=== PATIENT | male | born 1940 | race Caucasian/White ===

== ENCOUNTER 2017-04-07 10:43 | Emergency (ER) | payer MEDICARE ==
[2017-04-07 10:43] VITALS: BMI 28.0
[2017-04-07 10:55] VITALS: RESP 18
--- NOTE | 2017-04-07 11:22 | C.PDOC ---
History Of Present Illness 77M c/o painful abscess of left breast worsening over the last 2 weeks. he says his Dr [facility] this am gave him abx during rx and instructed to the go to the ED after. he denies any f/c, n/v, or systemic sx of illness. Time Seen by Provider: 04/07/17 11:22 Chief Complaint (Nursing): Abnormal Skin Integrity Past Medical History Vital Signs: Last Vital Signs Temp 97.8 F 04/07/17 12:35 Pulse 70 04/07/17 12:35 Resp 18 04/07/17 12:35 BP 110/60 04/07/17 12:35 Pulse Ox 99 04/07/17 12:35 - Medical History PMH: Arthritis, Benign Prostatic Hyperplasia, Bipolar Disorder, CAD, CHF, COPD, Diabetes, HTN, Hypercholesterolemia, Peripheral Edema (no longer), Pneumonia, End Stage Renal Disease, Chronic Kidney Disease Surgical History: CABG (Aortive valve replacement9 Tissue valve ) in 07/2013 at [facility] in [facility]) - [facility] Procedures CENTRAL VENOUS CATHETER PLACEMENT WITH GUIDANCE (12/12/13) CLOSURE SKIN & SUBCUTANEOUS NEC (01/08/14) CORONAR ARTERIOGR-2 CATH (06/19/13) DIALYSIS ARTERIOVENOSTOM (03/01/15) FLUOROSCOPY OF SUP VENA CAVA USING OT CONTRAST, GUIDANCE (05/01/15) INSERT INFUSION DEV IN R EXT JUGULAR VEIN, PERC (05/01/15) INSERTION OF INFUSION DEV INTO SUP VENA CAVA, PERC APPROACH (05/01/15) LOC EXC BONE LESION NEC (10/26/13) PERFORMANCE OF URINARY FILTRATION, MULTIPLE (05/01/15) RT & LT HEART ANGIOCARD (06/19/13) RT/LEFT HEART CARD CATH (06/19/13) ULTRASONOGRAPHY OF RIGHT JUGULAR VEINS, GUIDANCE (05/01/15) VACCINATION NEC (12/12/13) VENOUS CATHETERIZATION NEC (10/26/13) Family History: States: Other Other Family History: nc - Social History Hx Tobacco Use: Yes Hx Alcohol Use: No Hx Substance Use: No - Immunization History Hx Tetanus Toxoid Vaccination: Yes Hx Influenza Vaccination: Yes Hx Pneumococcal Vaccination: Yes Review Of Systems Constitutional: Negative for: Fever, Chills, Weakness, Malaise Cardiovascular: Negative for: Chest Pain Respiratory: Negative for: Cough, Shortness of Breath Gastrointestinal: Negative for: Nausea, Vomiting Physical Exam - Physical Exam Appears: Well, Non-toxic, No Acute Distress Skin: Warm, Dry Oral Mucosa: Moist Chest: Other (small pustule with 1cm area of fluctuance surrounding by 5cm area of erythema just lateral to the left areola.) Cardiovascular: Rhythm Regular Respiratory: No Decreased Breath Sounds, No Accessory Muscle Use Neurological/Psych: Oriented x3 ED Course And Treatment O2 Sat by Pulse Oximetry: 100 - Incision & Drainage Of Abscess Anesthesia: Lidocaine 1%, With Epi Used During Procedure: Continuous Pulse Oximetry, 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 Keep the wound clean with soap and water and change the bandage daily. Return to the ER for any worsening symptoms or for any other concerns. Prescriptions: Doxycycline Monohydrate [Mondoxyne Nl] 100 mg PO BID #20 capsule Instructions: Abscess Incision and Drainage (ED) Forms: The [employer] (Malian) Print Language: SETSWANA - Clinical Impression Clinical Impression: Abscess
[2017-04-07] MEDS ORDERED: Lidocaine 1%/Epinephrine 1:100000 30 ml vial IJ STA (11:28)
[2017-04-07] MEDS ORDERED: Lidocaine 2% w Epi 1:100,000 Inj IJ ONE (11:30)
[2017-04-07 12:36] VITALS: BP 110/60; PULSE 70; TEMP 97.8
[2017-04-12 18:24] VITALS: O2SAT 100
== END 2017-04-07 12:35 | disposition home or self-care (01) ==
LOC: C.ER 10:43
DX: N61.1 Abscess of the breast and nipple (principal)

== ENCOUNTER 2017-10-30 13:53 | Inpatient (IN) | payer MEDICARE ==
[2017-10-30 13:54] VITALS: BMI 28.0
[2017-10-30 15:31] LABS: BASO # 0.2 K/uL (0.0-0.2); BASO % 1.2 % (0.0-2.0); EOS # 0.3 K/uL (0.0-0.7); EOS % 2.6 % (0.0-4.0); HEMOGLOBIN 10.9 g/dL (12.0-18.0); LYMPH # 3.7 K/uL (1.0-4.3); LYMPH % 28.7 % (20.0-40.0); MEAN CELL VOLUME 83.9 fL (80.0-94.0); MEAN CORPUSCULAR HEMOGLOBIN 27.7 pg (27.0-31.0); MEAN PLATELET VOLUME 9.4 fL (7.2-11.7); MONO # 1.2 K/uL (0.0-0.8); NEUT # 7.6 K/uL (1.8-7.0); NEUT % 58.5 % (50.0-75.0); RBC 3.95 Mil/uL (4.40-5.90); RED CELL DISTRIBUTION WIDTH 15.5 % (11.5-14.5)
[2017-10-30 15:55] LABS: ALB/GLOB RATIO 1.1 (1.0-2.1); ALBUMIN 4.1 g/dL (3.5-5.0); ALT/SGPT 12 U/L (21-72); AST/SGOT 23 U/L (17-59); BLOOD UREA NITROGEN 36 mg/dL (9-20); CALCIUM 8.8 mg/dl (8.6-10.4); GFR AFRICAN-AMERICAN 13; GFR NON-AFRICAN AMERICAN 10
--- NOTE | 2017-10-30 17:58 | RAD ---
PROCEDURE: Right shoulder dated 10/30/2017 HISTORY: Status post fall with pain. COMPARISON: No prior study available comparison FINDINGS: BONES: Current study reveals lucency along the cortex inferior glenoid and possibly on along the posterior cortex of the proximal scapula just below the glenoid. Findings may represent an acute fracture. Follow-up of CT scan could be performed for further evaluation. JOINTS: Normal. Glenohumeral and acromioclavicular joints preserved. No osteoarthritis. SOFT TISSUES: Normal. OTHER FINDINGS: None. IMPRESSION: Possible fracture through the proximal scapula including the glenoid. . Followup CT scan recommended. Note this report was placed in PA review folder for followup
--- NOTE | 2017-10-30 19:31 | C.PDOC ---
- HPI Time Seen by Provider: 10/30/17 14:38 Chief Complaint (Nursing): Trauma Past Medical History Vital Signs: Last Vital Signs Temp 97.4 F L 10/30/17 16:35 Pulse 61 10/30/17 16:35 Resp 20 10/30/17 16:35 BP 136/63 10/30/17 16:35 Pulse Ox 97 10/30/17 16:35 - Medical History PMH: Arthritis, Benign Prostatic Hyperplasia, Bipolar Disorder, CAD, CHF, COPD, Diabetes, HTN, Hypercholesterolemia, Peripheral Edema (no longer), Pneumonia, End Stage Renal Disease, Chronic Kidney Disease Surgical History: CABG (Aortive valve replacement9 Tissue valve ) in 07/2013 at [facility] in [facility]) - [facility] Procedures CENTRAL VENOUS CATHETER PLACEMENT WITH GUIDANCE (12/12/13) CLOSURE SKIN & SUBCUTANEOUS NEC (01/08/14) CORONAR ARTERIOGR-2 CATH (06/19/13) DIALYSIS ARTERIOVENOSTOM (03/01/15) FLUOROSCOPY OF SUP VENA CAVA USING OT CONTRAST, GUIDANCE (05/01/15) INSERT INFUSION DEV IN R EXT JUGULAR VEIN, PERC (05/01/15) INSERTION OF INFUSION DEV INTO SUP VENA CAVA, PERC APPROACH (05/01/15) LOC EXC BONE LESION NEC (10/26/13) PERFORMANCE OF URINARY FILTRATION, MULTIPLE (05/01/15) RT & LT HEART ANGIOCARD (06/19/13) RT/LEFT HEART CARD CATH (06/19/13) ULTRASONOGRAPHY OF RIGHT JUGULAR VEINS, GUIDANCE (05/01/15) VACCINATION NEC (12/12/13) VENOUS CATHETERIZATION NEC (10/26/13) Family History: States: Unknown Family Hx - Social History Hx Tobacco Use: Yes Hx Alcohol Use: No Hx Substance Use: No - Immunization History Hx Tetanus Toxoid Vaccination: Yes Hx Influenza Vaccination: Yes Hx Pneumococcal Vaccination: Yes ED Course And Treatment - Laboratory Results Result Diagrams: 10/30/17 15:19 10/30/17 15:19 O2 Sat by Pulse Oximetry: 97 Disposition - Disposition
--- NOTE | 2017-10-30 20:20 | C.PDOC ---
History Of Present Illness Pt lives alone. Someone came to check on pt at 7am when the found him on the floor. Pt did no remember how he fell. The person that found him apparently checked his glucose and it was high, so they gave him his insulin. - HPI Time Seen by Provider: 10/30/17 14:38 Chief Complaint (Nursing): Trauma History Per: Patient, Family (Daughter) History/Exam Limitations: other (Dementia) Onset/Duration Of Symptoms: Unknown Location Of Injury: Right: Hip, Shoulder Severity: Moderate Associated Symptoms: LOC (unknown) Additional History Per: Prior Records - Fall Fall:Prior To Injury: Other (Unknown) Past Medical History Reviewed: Historical Data, Nursing Documentation, Vital Signs Vital Signs: Last Vital Signs Temp 98.4 F 10/30/17 19:37 Pulse 84 10/30/17 19:37 Resp 18 10/30/17 19:37 BP 164/89 H 10/30/17 19:37 Pulse Ox 98 10/30/17 19:37 - Medical History PMH: Arthritis, Benign Prostatic Hyperplasia, Bipolar Disorder, CAD, CHF, COPD, Dementia, Diabetes, HTN, Hypercholesterolemia, Peripheral Edema (no longer), Pneumonia, End Stage Renal Disease (on dialysis M/W/F.), Chronic Kidney Disease Surgical History: CABG (Aortive valve replacement9 Tissue valve ) in 07/2013 at [facility]) - [facility] Procedures CENTRAL VENOUS CATHETER PLACEMENT WITH GUIDANCE (12/12/13) CLOSURE SKIN & SUBCUTANEOUS NEC (01/08/14) CORONAR ARTERIOGR-2 CATH (06/19/13) DIALYSIS ARTERIOVENOSTOM (03/01/15) FLUOROSCOPY OF SUP VENA CAVA USING OTH CONTRAST, GUIDANCE (05/01/15) INSERT INFUSION DEV IN R EXT JUGULAR VEIN, PERC (05/01/15) INSERTION OF INFUSION DEV INTO SUP VENA CAVA, PERC APPROACH (05/01/15) LOC EXC BONE LESION NEC (10/26/13) PERFORMANCE OF URINARY FILTRATION, MULTIPLE (05/01/15) RT & LT HEART ANGIOCARD (06/19/13) RT/LEFT HEART CARD CATH (06/19/13) ULTRASONOGRAPHY OF RIGHT JUGULAR VEINS, GUIDANCE (05/01/15) VACCINATION NEC (12/12/13) VENOUS CATHETERIZATION NEC (10/26/13) Family History: States: Unknown Family Hx - Social History Hx Tobacco Use: Yes Hx Alcohol Use: No Hx Substance Use: No - Immunization History Hx Tetanus Toxoid Vaccination: Yes Hx Influenza Vaccination: Yes Hx Pneumococcal Vaccination: Yes Review Of Systems Constitutional: Negative for: Fever Cardiovascular: Negative for: Chest Pain Respiratory: Negative for: Shortness of Breath Gastrointestinal: Positive for: Diarrhea (?) Musculoskeletal: Negative for: Neck Pain, Back Pain Neurological: Negative for: Weakness, Numbness, Headache Physical Exam - Physical Exam Appears: Non-toxic, No Acute Distress, Chronically Ill Skin: Normal Color, Warm, Dry Head: Atraumatic, Normacephalic Eye(s): bilateral: PERRL, EOMI Neck: Normal ROM, No Midline Cervical Tenderness, No Step Off Deformity, Supple Chest: Symmetrical, No Deformity Cardiovascular: Rhythm Regular Respiratory: Normal Breath Sounds, No Accessory Muscle Use Gastrointestinal/Abdominal: Soft, No Tenderness Back: No Vertebral Tenderness Extremity: Normal ROM, Tenderness (mild right shoulder and right hip), No Deformity, No Swelling Neurological/Psych: Oriented x3, Normal Motor, Normal Sensation ED Course And Treatment - Laboratory Results Result Diagrams: 10/30/17 15:19 10/30/17 15:19 Lab Interpretation: Abnormal Interpretation Of Abnormal: Hypoglycemia ECG: Interpreted By Me, Viewed By Me ECG Rhythm: Sinus Rhythm, 1st Degree HB, PVC, Nonspecific Changes Rate From EC O2 Sat by Pulse Oximetry: 98 Pulse Ox Interpretation: Normal - Radiology CXR: Interpreted by Me, Viewed By Me CXR Interpretation: Yes: No Acute Disease - Other Rad Right shoulder x-rays X-Ray: Viewed By Me, Read By Radiologist Interpretation: IMPRESSION: Possible fracture through the proximal scapula including the glenoid. . Followup CT scan recommended. Right hip x-rays X-Ray: Interpreted by Me, Viewed By Me Interpretation: No acute fx or dislocation. Progress Note: Pt was given a tray to eat and his glucose improved. - Physician Consult Information Physician Contacted: Jose Luis Lawton (Renal) Outcome Of Conversation: He wants pt to be admitted under on-call physician. Medical Decision Making Medical Decision Making: Unknown if pt fell due to a syncopal episode. Disposition Discussed With : Ade Iqbal Comment: He accepted pt on his service. Doctor Will See Patient In The: Hospital Counseled Patient/Family Regarding: Studies Performed, Diagnosis - Disposition Disposition: HOSPITALIZED Disposition Time: 20:26 Condition: FAIR - Clinical Impression Clinical Impression: Right scapula fracture, Fall at home, Uncontrolled diabetes mellitus
[2017-10-30] MEDS ORDERED: (Novolog) Insulin Aspart, Recombinant 100 u/ml 10 ml vial SC PRN (22:25)
[2017-10-30] MEDS ORDERED: Morphine 4 MG/ML VIAL IVP PRN (22:45)
[2017-10-30] MEDS: (Lantus) Insulin Glargine, Recombinant SC SCH (23:06)
[2017-10-30 23:36] LABS: CK-MB 1.31 ng/mL (0.0-3.38)
--- NOTE | 2017-10-31 07:21 | CP.PCM.CON ---
History of Present Illness - History of Present Illness History of Present Illness: CONSULT DICTATED FALL /SYNCOPE CERVICAL MYEOPATHY WITH SEVERE NEUROPATHY EEG/MRI BRAIN AND CERV SPINE CONTINUE THE SAME FALL PRECAUTION PROVIDE WALKER THANKS Past Patient History - Infectious Disease Hx of Infectious Diseases: None - Past Medical History & Family History Past Medical History?: Yes - Past Social History Smoking Status: Former Smoker - CARDIAC Hx Congestive Heart Failure: Yes Hx Hypercholesterolemia: Yes Hx Hypertension: Yes Hx Peripheral Edema: Yes (no longer) - PULMONARY Hx Chronic Obstructive Pulmonary Disease (COPD): Yes Hx Pneumonia: Yes - NEUROLOGICAL Hx Dementia: Yes - HEENT Hx HEENT Problems: Yes Hx Cataracts: Yes (bilat iol) - RENAL Type of Dialysis Access: left upper arm AV shunt Date of Last Dialysis Treatment: 10/29/17 - ENDOCRINE/METABOLIC Hx Diabetes Mellitus Type 1: Yes - HEMATOLOGICAL/ONCOLOGICAL Hx Blood Disorders: No - INTEGUMENTARY Hx Dermatological Problems: Yes (ble with discoloration) - MUSCULOSKELETAL/RHEUMATOLOGICAL Hx Arthritis: Yes Hx Falls: Yes - GASTROINTESTINAL Hx Gastrointestinal Disorders: Yes Hx Gastroesophageal Reflux: Yes - GENITOURINARY/GYNECOLOGICAL Hx Genitourinary Disorders: Yes Other/Comment: BPH - PSYCHIATRIC Hx Bipolar Disorder: Yes Hx Substance Use: No - SURGICAL HISTORY Hx Coronary Artery Bypass Graft: Yes (Aortive valve replacement9 Tissue valve ) in 07/[address] [facility]) - ANESTHESIA Hx Anesthesia: Yes Hx Anesthesia Reactions: No Hx Malignant Hyperthermia: No Meds Allergies/Adverse Reactions: Allergies Allergy/AdvReac Type Severity Reaction Status Date / Time No Known Allergies Allergy Verified 10/30/17 14:11 - Medications Medications: Current Medications Acetaminophen (Tylenol 325mg Tab) 650 mg PO Q6H PRN PRN Reason: MILD PAIN Amlodipine Besylate (Norvasc) 10 mg PO DAILY [facility] Calcium Acetate (Phoslo) 1,334 mg PO ACTID [facility] Last Admin: 10/31/17 07:00 Dose: 1,334 mg Carvedilol (Coreg) 25 mg PO BID [facility] Last Admin: 10/30/17 23:05 Dose: 25 mg Clonidine HCl (Catapres) 0.1 mg PO BID [facility] Last Admin: 10/30/17 23:05 Dose: 0.1 mg Enoxaparin Sodium (Lovenox) 40 mg SC DAILY [facility] Glimepiride (Amaryl) 4 mg PO DAILY [facility] Insulin Aspart (Novolog) 0 unit SC ACHS [place] PRN Reason: Protocol Insulin Glargine (Lantus) 30 unit SC HS [facility] Last Admin: 10/30/17 23:06 Dose: 30 units Lamotrigine (Lamictal) 25 mg PO BID [facility] Last Admin: 10/30/17 23:13 Dose: 25 mg Losartan Potassium (Cozaar) 100 mg PO DAILY [facility] Morphine Sulfate (Morphine) 2 mg IVP Q6 PRN PRN Reason: Pain, severe (8-10) Pantoprazole Sodium (Protonix Ec Tab) 40 mg PO DAILY [facility] Rosuvastatin Calcium (Crestor) 10 mg PO HS [facility] Last Admin: 10/30/17 23:05 Dose: 10 mg Tamsulosin HCl (Flomax) 0.4 mg PO DAILY [facility] Results - Vital Signs Recent Vital Signs: Last Vital Signs Temp 98 F 10/31/17 04:15 Pulse 62 10/31/17 04:15 Resp 20 10/31/17 04:15 BP 129/59 L 10/31/17 04:15 Pulse Ox 96 10/31/17 04:15 - Labs Result Diagrams: 10/30/17 15:19 10/30/17 15:19 Labs: Laboratory Results - last 24 hr 10/30/17 10/30/17 10/30/17 15:19 15:19 17:07 WBC 13.0 H D RBC 3.95 L Hgb 10.9 L Hct 33.1 L MCV 83.9 MCH 27.7 MCHC 33.0 RDW 15.5 H Plt Count 183 MPV 9.4 Neut % (Auto) 58.5 Lymph % (Auto) 28.7 [place] % (Auto) 9.0 Eos % (Auto) 2.6 Baso % (Auto) 1.2 Neut # (Auto) 7.6 H Lymph # (Auto) 3.7 [place] # (Auto) 1.2 H Eos # (Auto) 0.3 Baso # (Auto) 0.2 Sodium 141 Potassium 4.0 Chloride 97 L Carbon Dioxide 28 Anion Gap 20 BUN 36 H Creatinine 5.4 H Est GFR ( Amer) 13 Est GFR (Non-Af Amer) 10 POC Glucose (mg/dL) 81 Random Glucose 42 L Calcium 8.8 Total Bilirubin 0.5 AST 23 ALT 12 L D Alkaline Phosphatase 109 Total Creatine Kinase CK-MB (Mass) Troponin I < 0.0120 Total Protein 7.8 Albumin 4.1 Globulin 3.7 Albumin/Globulin Ratio 1.1 10/30/17 10/30/17 10/30/17 19:28 21:39 23:09 WBC RBC Hgb Hct MCV MCH MCHC RDW Plt Count MPV Neut % (Auto) Lymph % (Auto) [place] % (Auto) Eos % (Auto) Baso % (Auto) Neut # (Auto) Lymph # (Auto) [place] # (Auto) Eos # (Auto) Baso # (Auto) Sodium Potassium Chloride Carbon Dioxide Anion Gap BUN Creatinine Est GFR ( Amer) Est GFR (Non-Af Amer) POC Glucose (mg/dL) 113 H 284 H Random Glucose Calcium Total Bilirubin AST ALT Alkaline Phosphatase Total Creatine Kinase 74 CK-MB (Mass) 1.31 Troponin I < 0.0120 Total Protein Albumin Globulin Albumin/Globulin Ratio 10/31/17 06:14 WBC RBC Hgb Hct MCV MCH MCHC RDW Plt Count MPV Neut % (Auto) Lymph % (Auto) [place] % (Auto) Eos % (Auto) Baso % (Auto) Neut # (Auto) Lymph # (Auto) [place] # (Auto) Eos # (Auto) Baso # (Auto) Sodium Potassium Chloride Carbon Dioxide Anion Gap BUN Creatinine Est GFR ( Amer) Est GFR (Non-Af Amer) POC Glucose (mg/dL) 189 H Random Glucose Calcium Total Bilirubin AST ALT Alkaline Phosphatase Total Creatine Kinase CK-MB (Mass) Troponin I Total Protein Albumin Globulin Albumin/Globulin Ratio
[2017-10-31 07:43] LABS: HDL CHOLESTEROL 20 mg/dL (30-70)
[2017-10-31 07:56] LABS: LDL CHOLESTEROL 40 mg/dL (0-129)
[2017-10-31 07:57] LABS: CK-MB 1.01 ng/mL (0.0-3.38)
[2017-10-31 08:00] LABS: FREE T4 1.1 ng/dL (0.78-2.19)
[2017-10-31] MEDS: (Novolog) Insulin Aspart, Recombinant 100 u/ml 10 ml vial SC SCH ×5 (08:00→21:51)
--- NOTE | 2017-10-31 08:01 | RAD ---
Chest x-ray single frontal view History: Fall. Comparison: None available. Findings: No focal infiltrate or effusion. Mild venous congestion. Mild patchy increased markings at the left lung base. Status post median sternotomy. Calcification the aortic knob. Degenerative changes in the spine and shoulders. Productive change at the left inferior bony glenoid. Impression: No focal infiltrate or effusion. Mild venous congestion. Mild patchy increased markings at the left lung base. Status post median sternotomy. Calcification the aortic knob.
--- NOTE | 2017-10-31 08:23 | RAD ---
PROCEDURE: Right Hip Radiographs. HISTORY: Pain s/p fall COMPARISON: None. FINDINGS: BONES: The pelvic ring is intact. There is no acute displaced fracture or bone destruction. JOINTS: Normal. SOFT TISSUES: Normal. OTHER FINDINGS: None. IMPRESSION: No acute displaced fracture or dislocation. Please note occult fractures cannot be excluded on plain radiographs. If there is a persistent clinical concern, an MRI of the hip may be performed for further evaluation.
[2017-10-31] MEDS: Enoxaparin 40 mg Syringe SC SCH (10:00)
--- NOTE | 2017-10-31 10:55 | MRI ---
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 COMPARISON: Comparison made with prior scan brain dated 06/24/2016. TECHNIQUE: Multiplanar, multisequence MR images of the brain were obtained without intravenous contrast enhancement. FINDINGS: HEMORRHAGE: No acute parenchymal, subarachnoid or extra-axial hemorrhage. No evidence of hemosiderin deposition identified on gradient echo weighted sequence. DWI: No evidence of an acute or early subacute infarction seen on diffusion imaging. . BRAIN PARENCHYMA: Mild chronic periventricular white matter ischemic changes seen extending peripherally into the deep and subcortical white matter both cerebral hemispheres. Multiple more discrete chronic appearing lacunar type infarcts also seen scattered about deep and subcortical white matter as well as to a lesser degree both basal nuclei and both cerebellar hemispheres including the changes in middle cerebellar peduncles. . Significant volume loss. . VENTRICLES: No obstructive hydrocephalus. CRANIUM: Calvarium appears grossly unremarkable. ORBITS: Changes of bilateral cataract surgery again noted. PARANASAL SINUSES/MASTOIDS: Apparent complete opacification right chamber sphenoid sinus. VASCULAR SYSTEM: Visualized major vascular flow voids at skull base are patent. OTHER FINDINGS: None. IMPRESSION: No evidence of acute intracranial hemorrhage or infarct. Chronic white matter, basal nuclei and cerebellar ischemic changes as described. Significant volume loss. Apparent complete opacification right chamber sphenoid sinus. Changes of bilateral cataract surgery
--- NOTE | 2017-10-31 11:00 | CON ---
DATE: ATTENDING PHYSICIAN: Radha Iqbal MD LOCATION: The patient's room number 659, bed 1. REASON FOR CONSULTATION: Syncopal attack. CHIEF COMPLAINT: The patient was brought into [facility] after he was found on the floor by his friend at home. The patient was found to have sugar was high, and he was brought into [facility] for further management. HISTORY OF PRESENT ILLNESS: Mr. Mekhi Sutton is 77-year-old right-handed moderately built male who lives alone, brought into [facility] with a history of witnessed, being found on the floor. No evidence of bowel or bladder incontinence. No evidence of bleeding at the scene. The patient admitted frequent fall at home and outside due to his losing balance. He has been using the cane for more than 3 years. He admits he is using the cane because of his losing his balance. Denies neck pain. He claims that he has lower back pain on and off. No radicular in nature. No headache, no visual or bulbar dysfunction. No other weakness as per the patient. No history of bowel or bladder incontinence. No history of involuntary movements. PAST MEDICAL HISTORY: Benign prostatic hypertrophy, bipolar disorder, coronary artery disease, CHF, COPD, dementia, diabetes, hypertension, dyslipidemia, peripheral edema, pneumonia, end-stage renal disease, getting dialysis Friday, Friday, and Friday. PAST SURGICAL HISTORY: Aortic valve replacement in 2012. REVIEW OF SYSTEMS: Twelve-point system had been reviewed. From neuro, recurrent fall and loss of consciousness. MEDICATIONS: Glimepiride, Catapres, Coreg, Cozaar, Crestor, Flomax, Lamictal, insulin, Lovenox, morphine, NovoLog, phosphorus supplements, pantoprazole. PHYSICAL EXAMINATION: NECK: Supple. No carotid bruits. HEART: Sounds regular. CHEST: Fair air entry. EXTREMITIES: No edema in legs. NEUROLOGIC: MENTAL STATUS EXAMINATION: He is awake, alert, and oriented to person and place. He knows the year. He knows the president. He moves all 4 extremities against the gravity. No right and left confusion. Cranial nerve examination: Right palpebral fissure is smaller compared with his left side. Extraocular movement intact. Pupils reactive to light. No facial sensory deficit. No facial asymmetry. Hearing is normal. Tongue is midline. Good gag. Motor examination: On outstretched hand with eyes closed, mild tremor noted on outstretched hand with eyes closed. Significant intrinsic muscle groups atrophy, more pronounced at first dorsal interossei on both sides. No fasciculation noted at rest. He could lift both upper extremities against the gravity. Significant weakness of left extensor hallucis longus and he worsens. Right leg has also weakness noted over dorsiflexion. Deep tendon reflexes: Trace in the upper extremities, absent in lower extremities. Plantars are mute. Sensory examination: Significant sensory dysfunction manifesting with inability to fill his lower extremity movement, particularly the ankle as well as the foot joints. Significant decreased pinprick and temperature in both lower extremities. Coordination: [id number] test is intact. Gait: Deferred at this time. LABORATORY DATA: Workup, EKG bundle-branch block with PVCs. WBC 13.0, hemoglobin 10.9, hematocrit 33.1, platelets 183. Sodium 141, potassium 4.0, chloride 97, bicarbonate 28, BUN 36, creatinine 5.7, GFR 10, glucose 189, calcium 8.8, alkaline phosphatase 109, ALT 12. CONCLUSION: Mr. Mekhi Sutton, as per neurological examination, presenting with possible syncopal attack versus fall from his balance. The examination shows possible cervical myelopathy which may be superimposed with bilateral distal symmetric sensory motor neuropathy, which probably is due to his diabetes as well as end-stage renal disease. The syncopal attack could be from cardiac versus neuro. From neuro, he may need further workup to rule out or ruled in, central nervous system dysfunction. RECOMMENDATIONS: 1. MRI of the brain evident to rule out any structural cause. 2. MRI of the cervical spine to rule out either intrinsic an extrinsic lesion for his myelopathy. 3. Carotid Doppler cardiogram and EEG to be done for his medical issues and neurological problem. 3. Continue the present management. 4. Out of bed, physical therapy. The patient can be benefited of using a walker than a cane, provided AFO should be given by the physical therapist to improve his gait and performance of his ambulation. Nathanael Barraza MD
--- NOTE | 2017-10-31 11:41 | MRI ---
PROCEDURE: MR CERVICAL SPINE WITHOUT CONTRAST HISTORY: Myelopathy COMPARISON: None available. TECHNIQUE: Multiecho multiplanar sequences were performed through the cervical spine without the use of intravenous contrast. FINDINGS: There is degenerative 4 mm retrolisthesis of C4 on C5. There is straightening of the cervical spine with loss of normal cervical lordosis. There are advanced degenerative endplate marrow changes at C4-5, C5-6 and C6-7. Otherwise, bone marrow signal is within normal limits. There is no acute fracture or spondylolisthesis. The craniocervical junction is normal. There is mild degenerative osteoarthrosis at the atlantoaxial joint. C2-C3: No disc herniation, spinal canal stenosis or neural foraminal narrowing. C3-C4: Broad-based disc osteophyte complex indents the ventral thecal sac with mild central spinal canal stenosis. Mild uncovertebral joint hypertrophy, asymmetric on the right in conjunction with mild facet arthropathy result in severe right and [id number] left neural foraminal narrowing. C4-C5: Broad-based central disc protrusion indents the ventral thecal sac with resultant moderate spinal canal stenosis. Moderate right and mild left facet arthropathy contribute to severe right and moderate left neural foraminal narrowing. C5-C6: Broad-based disc osteophyte complex in conjunction with mild ligamentum flavum infolding result in mild spinal canal stenosis. Moderate bilateral facet arthropathy contribute to severe neural foraminal narrowing. C6-C7: Broad-based disc osteophyte complex and mild central spinal canal stenosis. Severe bilateral facet arthropathy contribute to moderate neural foraminal narrowing. C7-T1: No disc herniation, spinal canal stenosis or neural foraminal narrowing. OTHER FINDINGS: None. IMPRESSION: Multilevel degenerative disc disease, worse at C4 -5 with a broad-based central disc protrusion and moderate spinal canal stenosis without evidence for cord compression. Also noted is severe right and moderate left neural foraminal narrowing. Additional comments as described above.
[2017-10-31] MEDS: Pantoprazole 40 mg EC Tab PO SCH (12:42)
--- NOTE | 2017-10-31 13:32 | CARD ---
APPROVED REPORT EKG Measurement Heart [id number] CT 220P49 [id number] <Conclusion> Sinus rhythm with 1st degree AV block with frequent premature ventricular complexes Cannot rule out Anterior infarct, age undetermined Abnormal ECG
--- NOTE | 2017-10-31 14:12 | VASCLAB ---
PROCEDURE: HISTORY: assess stenosis COMPARISON: None available. TECHNIQUE: Grayscale and duplex Doppler evaluation of the cervical carotid and vertebral arteries were performed. The common carotid, carotid bifurcations and cervical Internal Carotid Artery (ICA) and proximal External Carotid Artery (ECA) were evaluated. The vertebral arteries were evaluated for gross patency and flow direction. Report prepared by Ramu Mahajan, BS, RVT FINDINGS: RIGHT CAROTID ARTERIES: 1. Common Carotid Artery: No significant focal plaque formation of the right common carotid artery. Maximum Peak Systolic velocity: 81 cm/sec: End-diastolic velocity 0 cm/sec. 2. Carotid Bifurcation: plaque formation. Maximum Peak Systolic velocity: 62 cm/sec: End-diastolic velocity 0 cm/sec. 3. Internal Carotid Artery: Plaque description: 3.1. Proximal Segment: Peak systolic velocity 57 cm/sec: End-diastolic velocity 9 cm/sec - % stenosis 0-15% 3.2. Middle Segment: Peak systolic velocity 75 cm/sec: End-diastolic velocity 13 cm/sec - % stenosis 0-15% 3.3. Distal Segment: Peak systolic velocity 93 cm/sec: End-diastolic velocity 18 cm/sec - % stenosis 0-15% 4. External Carotid Artery: No significant focal plaque formation. Peak systolic velocity 122 cm/sec 5. ICA/CCA Ratio: 1.2 LEFT CAROTID ARTERIES: 1. Common Carotid Artery: No significant focal plaque formation of the left common carotid artery. Maximum Peak Systolic velocity: 91 cm/sec: End-diastolic velocity 0 cm/sec. 2. Carotid Bifurcation: plaque formation. Maximum Peak Systolic velocity: 70 cm/sec: End-diastolic velocity 0 cm/sec. 3. Internal Carotid Artery: Plaque description: 3.1. Proximal Segment: Peak systolic velocity 93 cm/sec: End-diastolic velocity 0 cm/sec - % stenosis 0-15% 3.2. Middle Segment: Peak systolic velocity 119 cm/sec: End-diastolic velocity 12 cm/sec - % stenosis 0-15% 3.3. Distal Segment: Peak systolic velocity 117 cm/sec: End-diastolic velocity 19 cm/sec - % stenosis 0-15% 4. External Carotid Artery: No significant focal plaque formation. Peak systolic velocity 147 cm/sec 5. ICA/CCA Ratio: 1.3 VERTEBRAL ARTERIES: 1. Right Vertebral Artery: The right vertebral artery flow direction is antegrade. 2. Left Vertebral Artery: The left vertebral artery flow direction is antegrade. OTHER FINDINGS: 1. Right Brachial Blood pressure: 152 mmHg. 2. Left Brachial Blood pressure: mmHg. IMPRESSION: RIGHT: Duplex scan does not suggest hemodynamically significant stenosis of the right extracranial carotid arteries. LEFT: Duplex scan does not suggest hemodynamically significant stenosis of the left extracranial carotid arteries.
--- NOTE | 2017-10-31 16:18 | CARD ---
APPROVED REPORT EXAM: Two-dimensional and M-mode echocardiogram with Doppler and color Doppler. Other Information Quality : Technically LimitedRhythm : INDICATION Congestive Heart Failure RISK FACTORS Hypertension Hyperlipidemia Diabetes M-Mode DIMENSIONS Left Atrium (MM)3.67 (2.5-4.0cm)IVSd1.32 (0.7-1.1cm) Aortic Root3.53 (2.2-3.7cm)LVDd5.98 (4.0-5.6cm) Aortic Cusp Exc.1.34 (1.5-2.0cm)PWd1.24 (0.7-1.1cm) FS (%) 35 %LVDs3.87 (2.0-3.8cm) LVEF (%)64 (>50%) Mitral Valve MV E Gvalephv948.3cm/sMV A Ucdwngnt843.1cm/sMV SLN85ir E/A ratio1.0MVA (PHT)2.31cm2 TDI E/Lateral E'0.0E/Medial E'0.0 Tricuspid Valve TR Peak Awiuyryf807dp/sTR Peak Gr.18rhFpEWRU40lnAt LEFT VENTRICLE The left ventricle is normal size. There is normal left ventricular wall thickness. The left ventricular function is normal. The left ventricular ejection fraction is within the normal range. No regional wall motion abnormalities noted. The left ventricular diastolic function is normal. No left ventricle thrombus noted on this study. There is no ventricular septal defect visualized. There is no left ventricular aneurysm. There is no mass noted in the left ventricle. RIGHT VENTRICLE The right ventricle is normal size. There is normal right ventricular wall thickness. The right ventricular systolic function is normal. ATRIA The left atrium size is normal. The right atrium size is normal. The interatrial septum is intact with no evidence for an atrial septal defect. AORTIC VALVE The aortic valve is normal in structure and function. No aortic regurgitation is present. There is no aortic valvular stenosis. There is no aortic valvular vegetation. MITRAL VALVE The mitral valve is normal in structure and function. There is no evidence of mitral valve prolapse. There is no mitral valve stenosis. There is no mitral valve regurgitation noted. TRICUSPID VALVE The tricuspid valve is normal in structure and function. There is no tricuspid valve regurgitation noted. There is no tricuspid valve prolapse or vegetation. There is no tricuspid valve stenosis. PULMONIC VALVE The pulmonary valve is normal in structure and function. There is no pulmonic valvular regurgitation. There is no pulmonic valvular stenosis. GREAT VESSELS The aortic root is normal in size. The ascending aorta is normal in size. The pulmonary artery is normal. The IVC is normal in size and collapses >50% with inspiration. PERICARDIAL EFFUSION The pericardium appears normal. There is no pleural effusion. <Conclusion> The left ventricular function is normal. The left ventricular ejection fraction is within the normal range. No regional wall motion abnormalities noted.
[2017-10-31 16:45] LABS: PROTHROMBIN TIME 11.6 SECONDS (9.7-12.2)
[2017-10-31 17:01] LABS: CK-MB 0.97 ng/mL (0.0-3.38)
--- NOTE | 2017-10-31 17:16 | CP.PCM.CON ---
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 Continue with Nephrovite 1 tab/day. PRBC as needed for anemia. Not on LESLI with HD as last Hb 10.9 Continue with phos binders home dose, check phos level BP control with meds as ordered. Patient on RAAS ish as losartan Glycemic control, Dialysis consistent diet Further work up/management as per primary team Dose meds/antibiotics (if needed) for ESRD status. Avoid fleets enema/magnesium based laxatives. appreciate neuro input Thanks for allowing me to participate in care of your patient. Will follow patient with you. Please call if any Qs. d/w team Dr Edwardo Valenzuela Office: [phone] Chief Complaint;Fall at home HPI: Pt is a 77 m with hx of ESRD on hemodialysis (MWF) via avf , last dialysis Friday, chronic anemia, hyperphosphatemia, secondary hyperparathyroidism, Diabetes Mellitus, hypertension presented with complaints of Fall at home. Renal consult requested for ESRD management. ROS: Cardiovascular: No chest pain. Pulmonary: No shortness of breath Gastrointestinal: denies abdominal pain No nausea. No vomiting. Genitourinary: No pain while urinating. Denies blood in urine. All other negative except as mentioned in HPI Physical Examination: General Appearance: Comfortable, in no acute respiratory distress, co-operative . Vitals reviewed and noted as below Head; Atraumatic, normocephalic ENT: no ulcers no thrush. Tongue is midline. Oropharynx: no rash or ulcers. EYES: Pupils are equal, round and reactive to light accommodation. Eye muscles and extraocular movement intact. Sclera is anicteric. Neck; supple no lymphadenopathy, no thyromegaly or bruit Lungs: Normal respiratory rate/effort. Breath sounds bilateral equal and clear Heart: Normal rate. s1s2 normal. No rub or gallop. Extremities: no edema. No varicose veins Neurological: Patient is alert, awake and oriented to person, place and time. No focal deficit. Strength bilateral appropriate and equal Skin: Warm and dry. Normal turgor. No rash. Palpitation: Normal elasticity for age Abdomen: Abdomen is soft. Bowel sounds +. There is no abdominal tenderness, no guarding/rigidity or organomegaly Psych: normal insight and normal affect/mood MSK: no joint tenderness or swelling. Digits and nails normal, no deformity : kidney or bladder not palpable Access: AVF Labs/imaging reviewed. Past medical history, past surgical history, family history, social history, allergy reviewed and noted as below Family Hx: no hx of CKD. Non contributory Past Patient History - Infectious Disease Hx of Infectious Diseases: None - Past Medical History & Family History Past Medical History?: Yes - Past Social History Smoking Status: Former Smoker - CARDIAC Hx Congestive Heart Failure: Yes Hx Hypercholesterolemia: Yes Hx Hypertension: Yes Hx Peripheral Edema: Yes (no longer) - PULMONARY Hx Chronic Obstructive Pulmonary Disease (COPD): Yes Hx Pneumonia: Yes - NEUROLOGICAL Hx Dementia: Yes - HEENT Hx HEENT Problems: Yes Hx Cataracts: Yes (bilat iol) - RENAL Type of Dialysis Access: left upper arm AV shunt Date of Last Dialysis Treatment: 10/29/17 - ENDOCRINE/METABOLIC Hx Diabetes Mellitus Type 1: Yes - HEMATOLOGICAL/ONCOLOGICAL Hx Blood Disorders: No - INTEGUMENTARY Hx Dermatological Problems: Yes (ble with discoloration) - MUSCULOSKELETAL/RHEUMATOLOGICAL Hx Arthritis: Yes Hx Falls: Yes - GASTROINTESTINAL Hx Gastrointestinal Disorders: Yes Hx Gastroesophageal Reflux: Yes - GENITOURINARY/GYNECOLOGICAL Hx Genitourinary Disorders: Yes Other/Comment: BPH - PSYCHIATRIC Hx Bipolar Disorder: Yes Hx Substance Use: No - SURGICAL HISTORY Hx Coronary Artery Bypass Graft: Yes (Aortive valve replacement9 Tissue valve ) in 07/2013 at [facility]) - ANESTHESIA Hx Anesthesia: Yes Hx Anesthesia Reactions: No Hx Malignant Hyperthermia: No Meds Allergies/Adverse Reactions: Allergies Allergy/AdvReac Type Severity Reaction Status Date / Time No Known Allergies Allergy Verified 10/30/17 14:11 - Medications Medications: Current Medications Acetaminophen (Tylenol 325mg Tab) 650 mg PO Q6H PRN PRN Reason: MILD PAIN Amlodipine Besylate (Norvasc) 10 mg PO DAILY [facility] Last Admin: 10/31/17 12:42 Dose: Not Given Calcium Acetate (Phoslo) 1,334 mg PO ACTID [facility] Last Admin: 10/31/17 12:42 Dose: Not Given Carvedilol (Coreg) 25 mg PO BID [facility] Last Admin: 10/31/17 12:39 Dose: Not Given Clonidine HCl (Catapres) 0.1 mg PO BID [facility] Last Admin: 10/31/17 12:39 Dose: Not Given Enoxaparin Sodium (Lovenox) 40 mg SC DAILY [facility] Last Admin: 10/31/17 10:00 Dose: Not Given Glimepiride (Amaryl) 4 mg PO DAILY [facility] Last Admin: 10/31/17 12:39 Dose: Not Given Insulin Aspart (Novolog) 0 unit SC [facility] PRN Reason: Protocol Last Admin: 10/31/17 12:30 Dose: 2 unit Insulin Glargine (Lantus) 30 unit SC [facility] Last Admin: 10/30/17 23:06 Dose: 30 units Lamotrigine (Lamictal) 25 mg PO BID [facility] Last Admin: 10/31/17 12:40 Dose: Not Given Losartan Potassium (Cozaar) 100 mg PO DAILY [facility] Last Admin: 10/31/17 12:39 Dose: Not Given Morphine Sulfate (Morphine) 2 mg IVP Q6 PRN PRN Reason: Pain, severe (8-10) Pantoprazole Sodium (Protonix Ec Tab) 40 mg PO DAILY [facility] Last Admin: 10/31/17 12:42 Dose: Not Given Rosuvastatin Calcium (Crestor) 10 mg PO [facility] Last Admin: 10/30/17 23:05 Dose: 10 mg Tamsulosin HCl (Flomax) 0.4 mg PO DAILY [facility] Last Admin: 10/31/17 12:40 Dose: Not Given Vitamin B Complex/Vit C/Folic Acid (Nephro-Poly) 1 tab PO 0800 [facility] Results - Vital Signs Recent Vital Signs: Last Vital Signs Temp 97.8 F 10/31/17 15:05 Pulse 64 10/31/17 15:41 Resp 18 10/31/17 15:41 BP 137/57 L 10/31/17 16:35 Pulse Ox 96 10/31/17 15:05 - Labs Result Diagrams: 10/30/17 15:19 10/30/17 15:19 Labs: Laboratory Results - last 24 hr 10/30/17 10/30/17 10/30/17 19:28 21:39 23:09 ESR PT INR APTT D-Dimer, Quantitative POC Glucose (mg/dL) 113 H 284 H Hemoglobin A1c Ammonia Total Creatine Kinase 74 CK-MB (Mass) 1.31 Troponin I < 0.0120 C-React Prot High Sens Triglycerides Cholesterol LDL Cholesterol Direct HDL Cholesterol Vitamin B12 Free T4 TSH 3rd Generation Prolactin RPR 10/31/17 10/31/17 10/31/17 06:14 07:15 07:15 ESR 64 H PT INR APTT D-Dimer, Quantitative POC Glucose (mg/dL) 189 H Hemoglobin A1c Ammonia Total Creatine Kinase 56 CK-MB (Mass) 1.01 Troponin I < 0.0120 C-React Prot High Sens Triglycerides 183 H D Cholesterol 100 LDL Cholesterol Direct 40 HDL Cholesterol 20 L Vitamin B12 586 Free T4 TSH 3rd Generation Prolactin 14.0 RPR 10/31/17 10/31/17 10/31/17 07:15 07:15 07:15 ESR PT INR APTT D-Dimer, Quantitative POC Glucose (mg/dL) Hemoglobin A1c Ammonia < 9 L Total Creatine Kinase CK-MB (Mass) Troponin I C-React Prot High Sens 9.27 H Triglycerides Cholesterol LDL Cholesterol Direct HDL Cholesterol Vitamin B12 Free T4 1.10 TSH 3rd Generation 1.35 Prolactin RPR Nonreactive 10/31/17 10/31/17 10/31/17 07:15 11:28 16:07 ESR PT INR APTT D-Dimer, Quantitative POC Glucose (mg/dL) 220 H 261 H Hemoglobin A1c 8.0 H Ammonia Total Creatine Kinase CK-MB (Mass) Troponin I C-React Prot High Sens Triglycerides Cholesterol LDL Cholesterol Direct HDL Cholesterol Vitamin B12 Free T4 TSH 3rd Generation Prolactin RPR 10/31/17 10/31/17 16:29 16:29 ESR PT 11.6 INR 1.0 APTT 27 D-Dimer, Quantitative 336 H POC Glucose (mg/dL) Hemoglobin A1c Ammonia Total Creatine Kinase 68 CK-MB (Mass) 0.97 Troponin I < 0.0120 C-React Prot High Sens Triglycerides Cholesterol LDL Cholesterol Direct HDL Cholesterol Vitamin B12 Free T4 TSH 3rd Generation Prolactin RPR
--- NOTE | 2017-10-31 17:31 | CP.PCM.HP ---
Past Patient History - Infectious Disease Hx of Infectious Diseases: None - Past Medical History & Family History Past Medical History?: Yes - Past Social History Smoking Status: Former Smoker - CARDIAC Hx Congestive Heart Failure: Yes Hx Hypercholesterolemia: Yes Hx Hypertension: Yes Hx Peripheral Edema: Yes (no longer) - PULMONARY Hx Chronic Obstructive Pulmonary Disease (COPD): Yes Hx Pneumonia: Yes - NEUROLOGICAL Hx Dementia: Yes - HEENT Hx HEENT Problems: Yes Hx Cataracts: Yes (bilat iol) - RENAL Type of Dialysis Access: left upper arm AV shunt Date of Last Dialysis Treatment: 10/29/17 - ENDOCRINE/METABOLIC Hx Diabetes Mellitus Type 1: Yes - HEMATOLOGICAL/ONCOLOGICAL Hx Blood Disorders: No - INTEGUMENTARY Hx Dermatological Problems: Yes (ble with discoloration) - MUSCULOSKELETAL/RHEUMATOLOGICAL Hx Arthritis: Yes Hx Falls: Yes - GASTROINTESTINAL Hx Gastrointestinal Disorders: Yes Hx Gastroesophageal Reflux: Yes - GENITOURINARY/GYNECOLOGICAL Hx Genitourinary Disorders: Yes Other/Comment: BPH - PSYCHIATRIC Hx Bipolar Disorder: Yes Hx Substance Use: No - SURGICAL HISTORY Hx Coronary Artery Bypass Graft: Yes (Aortive valve replacement9 Tissue valve ) in 07/2013 at [facility]) - ANESTHESIA Hx Anesthesia: Yes Hx Anesthesia Reactions: No Hx Malignant Hyperthermia: No Meds Allergies/Adverse Reactions: Allergies Allergy/AdvReac Type Severity Reaction Status Date / Time No Known Allergies Allergy Verified 10/30/17 14:11 Physical Exam - Constitutional Appears: Well - Head Exam Head Exam: ATRAUMATIC, NORMAL INSPECTION, NORMOCEPHALIC - Eye Exam Eye Exam: EOMI, Normal appearance, PERRL Pupil Exam: NORMAL ACCOMODATION, PERRL - ENT Exam ENT Exam: Mucous Membranes Moist, Normal Exam - Neck Exam Neck exam: Positive for: Normal Inspection - Respiratory Exam Respiratory Exam: Decreased Breath Sounds - Cardiovascular Exam Cardiovascular Exam: REGULAR RHYTHM, +S1, +S2 - GI/Abdominal Exam GI & Abdominal Exam: Diminished Bowel Sounds, Soft - Rectal Exam Rectal Exam: Deferred Results - Vital Signs Recent Vital Signs: Last Vital Signs Temp 97.8 F 10/31/17 15:05 Pulse 64 10/31/17 15:41 Resp 18 10/31/17 15:41 BP 140/54 L 10/31/17 17:05 Pulse Ox 96 10/31/17 15:05 - Labs Result Diagrams: 10/30/17 15:19 10/30/17 15:19 Labs: Laboratory Results - last 24 hr 10/30/17 10/30/17 10/30/17 19:28 21:39 23:09 ESR PT INR APTT D-Dimer, Quantitative POC Glucose (mg/dL) 113 H 284 H Hemoglobin A1c Ammonia Total Creatine Kinase 74 CK-MB (Mass) 1.31 Troponin I < 0.0120 C-React Prot High Sens Triglycerides Cholesterol LDL Cholesterol Direct HDL Cholesterol Vitamin B12 Free T4 TSH 3rd Generation Prolactin RPR 10/31/17 10/31/17 10/31/17 06:14 07:15 07:15 ESR 64 H PT INR APTT D-Dimer, Quantitative POC Glucose (mg/dL) 189 H Hemoglobin A1c Ammonia Total Creatine Kinase 56 CK-MB (Mass) 1.01 Troponin I < 0.0120 C-React Prot High Sens Triglycerides 183 H D Cholesterol 100 LDL Cholesterol Direct 40 HDL Cholesterol 20 L Vitamin B12 586 Free T4 TSH 3rd Generation Prolactin 14.0 RPR 10/31/17 10/31/17 10/31/17 07:15 07:15 07:15 ESR PT INR APTT D-Dimer, Quantitative POC Glucose (mg/dL) Hemoglobin A1c Ammonia < 9 L Total Creatine Kinase CK-MB (Mass) Troponin I C-React Prot High Sens 9.27 H Triglycerides Cholesterol LDL Cholesterol Direct HDL Cholesterol Vitamin B12 Free T4 1.10 TSH 3rd Generation 1.35 Prolactin RPR Nonreactive 10/31/17 10/31/17 10/31/17 07:15 11:28 16:07 ESR PT INR APTT D-Dimer, Quantitative POC Glucose (mg/dL) 220 H 261 H Hemoglobin A1c 8.0 H Ammonia Total Creatine Kinase CK-MB (Mass) Troponin I C-React Prot High Sens Triglycerides Cholesterol LDL Cholesterol Direct HDL Cholesterol Vitamin B12 Free T4 TSH 3rd Generation Prolactin RPR 10/31/17 10/31/17 16:29 16:29 ESR PT 11.6 INR 1.0 APTT 27 D-Dimer, Quantitative 336 H POC Glucose (mg/dL) Hemoglobin A1c Ammonia Total Creatine Kinase 68 CK-MB (Mass) 0.97 Troponin I < 0.0120 C-React Prot High Sens Triglycerides Cholesterol LDL Cholesterol Direct HDL Cholesterol Vitamin B12 Free T4 TSH 3rd Generation Prolactin RPR
[2017-10-31] MEDS: (Lantus) Insulin Glargine, Recombinant SC SCH (21:58)
--- NOTE | 2017-11-01 02:27 | CON ---
DATE: REASON FOR CONSULTATION: Syncopal episode. HISTORY OF PRESENT ILLNESS: History was obtained from the patient who was still in dialysis unit until the time of dictation of this consult. The patient is a 77 years old male who has a history of coronary artery disease, status post coronary artery bypass surgery about 10 years ago according to him Hospital. The patient does not recall the name of his boiler tube blower. He presented because of a fall at home. The patient has end-stage renal disease, on hemodialysis for the past three years. The patient lives by himself and he stated that he uses a walker and he falls frequently but usually is able to help himself and stand up. This time, he could not assist himself. He remained on the floor for few hours until his tool and die assembler arrived and found him in the floor. The patient denies loss of consciousness, and he had repetitive falls to imbalanced gait. The patient denies any incontinence while he was on the floor and denies experiencing any chest pain or shortness of breath. SOCIAL HISTORY: The patient is nonsmoker. He is from his who lives some few blocks away from him. He himself with short visits from homemaker. MEDICATIONS: Amaryl 4 mg once daily, clonidine 0.1 mg twice a day, Coreg 25 mg twice a day, Cozaar 100 mg daily, Crestor 10 mg once a day, Lovenox 40 mg subcutaneously once a day, Lamictal 25 mg twice a day, Norvasc 10 mg once a day, PhosLo two tablets t.i.d. REVIEW OF SYSTEMS: The patient denies any fever or chills. No vomiting or diarrhea. No history of chest pain. PHYSICAL EXAMINATION: GENERAL: The patient is an elderly male who does not appear to be in any acute distress. VITAL SIGNS: Blood pressure 129/56, heart rate 64, temperature 97.8, respirations 18. HEENT: Normocephalic. NECK: No JVD. CHEST: Absent breath sounds of the bases. HEART: S1, S2 regular. ABDOMEN: Soft. EXTREMITIES: Trace leg edema. LABORATORY DATA: EKG sinus rhythm with first degree AV block and PVCs. Echocardiographic study revealed normal left ventricular systolic function and no regional wall motion abnormality. Cervical spinal canal CAT scan without contrast, multilevel degenerative change versus C4-C5 with a broad-based central disk protrusion and moderate spinal canal stenosis without evidence of cord compression. Brain MRI without contrast, no evidence of intracranial hemorrhage or infarct, chronic white matter basal nuclei and cerebellar ischemic changes, significant volume loss. Chest x-ray with borderline cardiomegaly, sternotomy wires noted. Carotid Doppler does not suggest hemodynamically significant disease. Hip and pelvic x-ray, no acute displaced fracture or dislocation. Occult fracture cannot be excluded on plain radiographs. Shoulder x-ray, possible fracture throughout the proximal scapula including the glenoid. Followup CT scan is recommended. PT, PTT, INR within normal limits. D-dimer is 336. Hemoglobin and hematocrit 10.9 and 33.1. White count 13, platelet count 183,000. Two sets of troponins are negative. SMA-7, sodium 141, potassium 4, chloride 97, CO2 of 28, glucose 42, BUN 36, creatinine 5.4. ASSESSMENT: 1. Status post fall. 2. Possible right scapular fracture. 3. Endstage renal disease, on hemodialysis. 4. Normal EKG with evidence of frequent PVCs and first degree AV block. 5. Coronary artery disease, status post chronic artery bypass surgery. 6. Anemia. PLAN: Continue current clonidine 0.1 mg twice a day, Coreg 25 mg twice a day, Cozaar 100 mg once a day, Crestor 10 mg once a day, amlodipine 10 mg once a day. Obtain venous Doppler of the lower extremities as well as right scapular CT scan. Alex Lowe MD
[2017-11-01] MEDS: (Novolog) Insulin Aspart, Recombinant 100 u/ml 10 ml vial SC SCH ×4 (08:43→21:17)
[2017-11-01] MEDS: Multivitamin Vitamin B Complex (Nephro-Vite) Tab PO SCH (08:44)
[2017-11-01] MEDS: Pantoprazole 40 mg EC Tab PO SCH (09:05)
[2017-11-01] MEDS: Enoxaparin 40 mg Syringe SC SCH (09:05)
--- NOTE | 2017-11-01 10:14 | CP.PCM.PN ---
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 LESLI on hold Continue with phos binders bp stable Glycemic control, Dialysis consistent diet f/u sw may need placement S: seen and examined no n/v Physical Examination: General Appearance: Comfortable, in no acute respiratory distress, co-operative . Vitals reviewed and noted as below Head; Atraumatic, normocephalic ENT: no ulcers no thrush. Tongue is midline. Oropharynx: no rash or ulcers. EYES: Pupils are equal, round and reactive to light accommodation. Eye muscles and extraocular movement intact. Sclera is anicteric. Neck; supple no lymphadenopathy, no thyromegaly or bruit Lungs: Normal respiratory rate/effort. Breath sounds bilateral equal and clear Heart: Normal rate. s1s2 normal. No rub or gallop. Extremities: no edema. No varicose veins Neurological: Patient is alert, awake and oriented to person, place and time. No focal deficit. Strength bilateral appropriate and equal Skin: Warm and dry. Normal turgor. No rash. Palpitation: Normal elasticity for age Abdomen: Abdomen is soft. Bowel sounds +. There is no abdominal tenderness, no guarding/rigidity or organomegaly Psych: normal insight and normal affect/mood MSK: no joint tenderness or swelling. Digits and nails normal, no deformity : kidney or bladder not palpable Access: AVF Labs/imaging reviewed. Past medical history, past surgical history, family history, social history, allergy reviewed and noted as below Family Hx: no hx of CKD. Non contributory Objective - Vital Signs/Intake and Output Vital Signs (last 24 hours): Temp Pulse Resp BP Pulse Ox 98.0 F 67 18 110/75 100 11/01/17 07:30 11/01/17 07:30 11/01/17 07:30 11/01/17 09:06 11/01/17 07:30 Intake and Output: 11/01/17 11/01/17 06:59 18:59 Intake Total 420 Balance 420 - Medications Medications: Current Medications Acetaminophen (Tylenol 325mg Tab) 650 mg PO Q6H PRN PRN Reason: MILD PAIN Amlodipine Besylate (Norvasc) 10 mg PO DAILY [facility] Last Admin: 11/01/17 09:05 Dose: 10 mg Calcium Acetate (Phoslo) 1,334 mg PO ACTID [facility] Last Admin: 11/01/17 08:43 Dose: 1,334 mg Carvedilol (Coreg) 25 mg PO BID [facility] Last Admin: 11/01/17 09:06 Dose: Not Given Clonidine HCl (Catapres) 0.1 mg PO BID [facility] Last Admin: 11/01/17 09:05 Dose: 0.1 mg Enoxaparin Sodium (Lovenox) 40 mg SC DAILY [facility] Last Admin: 11/01/17 09:05 Dose: 40 mg Glimepiride (Amaryl) 4 mg PO DAILY [facility] Last Admin: 11/01/17 09:05 Dose: 4 mg Insulin Aspart (Novolog) 0 unit SC [facility] PRN Reason: Protocol Last Admin: 11/01/17 08:43 Dose: 3 unit Insulin Glargine (Lantus) 30 unit SC HS [facility] Last Admin: 10/31/17 21:58 Dose: 30 units Lamotrigine (Lamictal) 25 mg PO BID [facility] Last Admin: 11/01/17 09:05 Dose: 25 mg Losartan Potassium (Cozaar) 100 mg PO DAILY [facility] Last Admin: 11/01/17 09:05 Dose: 100 mg Morphine Sulfate (Morphine) 2 mg IVP Q6 PRN PRN Reason: Pain, severe (8-10) Pantoprazole Sodium (Protonix Ec Tab) 40 mg PO DAILY [facility] Last Admin: 11/01/17 09:05 Dose: 40 mg Rosuvastatin Calcium (Crestor) 10 mg PO HS [facility] Last Admin: 10/31/17 21:58 Dose: 10 mg Tamsulosin HCl (Flomax) 0.4 mg PO DAILY [facility] Last Admin: 11/01/17 09:05 Dose: 0.4 mg Vitamin B Complex/Vit C/Folic Acid (Nephro-Poly) 1 tab PO 0800 [facility] Last Admin: 11/01/17 08:44 Dose: 1 tab - Labs Labs: 10/30/17 15:19 10/30/17 15:19 PT 11.6 SECONDS (9.7-12.2) 10/31/17 16:29 INR 1.0 10/31/17 16:29 APTT 27 SECONDS (21-34) 10/31/17 16:29
--- NOTE | 2017-11-01 12:48 | VASCLAB ---
PROCEDURE: Lower Extremity Venous Duplex Exam. HISTORY: Edema, r/o DVT PRIORS: None. TECHNIQUE: Bilateral common femoral, femoral, popliteal and posterior tibial, peroneal and great saphenous veins were evaluated. Flow was assessed with color Doppler, compressibility, assessment of phasic flow and augmentation response. Report prepared by ELMA Russo FINDINGS: RIGHT: 1. Common Femoral Vein: 1.1. Compressibility - Fully compressible: Thrombus - None : Flow - Phasic: Augmentation -Normal: Reflux - None. 2. Femoral Vein: 2.1. Compressibility - Fully compressible: Thrombus - None : Flow - Phasic: Augmentation -Normal: Reflux - None. 3. Popliteal Vein: 3.1. Compressibility - Fully compressible: Thrombus - None : Flow - Phasic: Augmentation -Normal: Reflux - None. 4. Posterior Tibial Vein: 4.1. Compressibility - Fully compressible: Thrombus - None: Flow - Phasic: Augmentation -Normal: Reflux - None. 5. Peroneal Vein: 5.1. Compressibility - Fully compressible: Thrombus - None: Flow - Phasic: Augmentation -Normal: Reflux - None. 6. Great Saphenous Vein: 6.1. Compressibility - Fully compressible: Thrombus - None: Flow - Phasic: Augmentation - Normal: Reflux - None. LEFT: 1. Common Femoral Vein: 1.1. Compressibility - Fully compressible: Thrombus - None: Flow - Phasic: Augmentation -Normal: Reflux - None. 2. Femoral Vein: 2.1. Compressibility - Fully compressible: Thrombus - None: Flow - Phasic: Augmentation -Normal: Reflux - None. 3. Popliteal Vein: 3.1. Compressibility - Fully compressible: Thrombus - None : Flow - Phasic: Augmentation -Normal: Reflux - None. 4. Posterior Tibial Vein: 4.1. Compressibility - Fully compressible: Thrombus - None: Flow - Phasic: Augmentation -Normal: Reflux - None. 5. Peroneal Vein: 5.1. Compressibility - Fully compressible: Thrombus - None: Flow - Phasic: Augmentation -Normal: Reflux - None. 6. Great Saphenous Vein: 6.1. Compressibility - Fully compressible: Thrombus - None: Flow - Phasic: Augmentation - Normal: Reflux - None. OTHER FINDINGS: Right: None significant. Left: None significant. IMPRESSION: Right: No evidence of deep or superficial vein thrombosis of the right lower extremity. Normal valve function noted of the right side. Left: No evidence of deep or superficial vein thrombosis of the left lower extremity. Normal valve function noted of the left side.
--- NOTE | 2017-11-01 12:59 | CP.PCM.PN ---
Subjective - Date & Time of Evaluation Date of Evaluation: 11/01/17 Time of Evaluation: 10:00 - Subjective Subjective: clinically same Objective - Vital Signs/Intake and Output Vital Signs (last 24 hours): Temp Pulse Resp BP Pulse Ox 98.0 F 67 18 110/75 100 11/01/17 07:30 11/01/17 07:30 11/01/17 07:30 11/01/17 09:06 11/01/17 07:30 Intake and Output: 11/01/17 11/01/17 06:59 18:59 Intake Total 420 Balance 420 - Medications Medications: Current Medications Acetaminophen (Tylenol 325mg Tab) 650 mg PO Q6H PRN PRN Reason: MILD PAIN Amlodipine Besylate (Norvasc) 10 mg PO DAILY [facility] Last Admin: 11/01/17 09:05 Dose: 10 mg Calcium Acetate (Phoslo) 1,334 mg PO ACTID [facility] Last Admin: 11/01/17 12:57 Dose: 1,334 mg Carvedilol (Coreg) 25 mg PO BID [facility] Last Admin: 11/01/17 09:06 Dose: Not Given Clonidine HCl (Catapres) 0.1 mg PO BID [facility] Last Admin: 11/01/17 09:05 Dose: 0.1 mg Enoxaparin Sodium (Lovenox) 40 mg SC DAILY [facility] Last Admin: 11/01/17 09:05 Dose: 40 mg Glimepiride (Amaryl) 4 mg PO DAILY [facility] Last Admin: 11/01/17 09:05 Dose: 4 mg Insulin Aspart (Novolog) 0 unit SC ACHS [facility] PRN Reason: Protocol Last Admin: 11/01/17 12:57 Dose: 4 unit Insulin Glargine (Lantus) 30 unit SC HS [facility] Last Admin: 10/31/17 21:58 Dose: 30 units Lamotrigine (Lamictal) 25 mg PO BID [facility] Last Admin: 11/01/17 09:05 Dose: 25 mg Losartan Potassium (Cozaar) 100 mg PO DAILY [facility] Last Admin: 11/01/17 09:05 Dose: 100 mg Morphine Sulfate (Morphine) 2 mg IVP Q6 PRN PRN Reason: Pain, severe (8-10) Pantoprazole Sodium (Protonix Ec Tab) 40 mg PO DAILY [facility] Last Admin: 11/01/17 09:05 Dose: 40 mg Rosuvastatin Calcium (Crestor) 10 mg PO HS [facility] Last Admin: 10/31/17 21:58 Dose: 10 mg Tamsulosin HCl (Flomax) 0.4 mg PO DAILY [facility] Last Admin: 11/01/17 09:05 Dose: 0.4 mg Vitamin B Complex/Vit C/Folic Acid (Nephro-Poly) 1 tab PO 0800 [facility] Last Admin: 11/01/17 08:44 Dose: 1 tab - Labs Labs: 10/30/17 15:19 10/30/17 15:19 PT 11.6 SECONDS (9.7-12.2) 10/31/17 16:29 INR 1.0 10/31/17 16:29 APTT 27 SECONDS (21-34) 10/31/17 16:29 - Constitutional Appears: Well - Head Exam Head Exam: ATRAUMATIC, NORMAL INSPECTION, NORMOCEPHALIC - Eye Exam Eye Exam: EOMI, Normal appearance, PERRL Pupil Exam: NORMAL ACCOMODATION, PERRL - ENT Exam ENT Exam: Mucous Membranes Moist, Normal Exam - Neck Exam Neck Exam: Full ROM, Normal Inspection. absent: Lymphadenopathy - Respiratory Exam Respiratory Exam: Decreased Breath Sounds - Cardiovascular Exam Cardiovascular Exam: REGULAR RHYTHM, +S1, +S2 - GI/Abdominal Exam GI & Abdominal Exam: Soft, Diminished Bowel Sounds - Rectal Exam Rectal Exam: Deferred Assessment and Plan - Assessment and Plan (Free Text) Plan: Her daughter is bedside spoke to the daughter at length patient needs a subacute rehab as cannot take care of the patient's Discussed with any Follow-up with the cardiology Follow-up with neurology Continue same Hemodialysis as ordered Morphine as needed for pain
[2017-11-01] MEDS: (Lantus) Insulin Glargine, Recombinant SC SCH (21:17)
--- NOTE | 2017-11-01 21:30 | PN ---
DATE: 11/01/2017 SUBJECTIVE: The patient denies any dizziness or headache. He denies any chest pain. PHYSICAL EXAMINATION: VITAL SIGNS: Blood pressure 144/58, heart rate 56, temperature 97.4, respirations 18. HEENT: Normocephalic. CHEST: Clear. HEART: S1 and S2, regular. EXTREMITIES: 1+ pitting edema. LABORATORY DATA: Today's blood sugars are 287 and 326 respectively. All troponins are negative. Venous Doppler of lower extremity, no evidence of DVT. ASSESSMENT: 1. Recurrent falls. 2. Cervical degenerative disk disease without evidence of cord compression, posterior right and moderate left neural foraminal narrowing. 3. End-stage renal disease, on hemodialysis. 4. Possible right scapular fracture. 5. Abnormal electrocardiogram with evidence of frequent premature ventricular contractions and first degree atrioventricular block on admission. The patient currently is in sinus bradycardia. 6. Anemia. 7. Coronary artery disease with history of coronary artery bypass surgery. RECOMMENDATIONS: Hold Coreg and clonidine for now. Continue Cozaar 100 mg daily, Crestor 10 mg once a day. Consider repeating head CT scan without contrast. Alex Lowe MD
[2017-11-02 08:34] LABS: BASO # 0.1 K/uL (0.0-0.2); EOS # 0.3 K/uL (0.0-0.7); EOS % 3.3 % (0.0-4.0); HEMOGLOBIN 10.5 g/dL (12.0-18.0); LYMPH # 2.4 K/uL (1.0-4.3); LYMPH % 28.9 % (20.0-40.0); MEAN CELL VOLUME 82.2 fL (80.0-94.0); MEAN CORPUSCULAR HEMOGLOBIN 28.8 pg (27.0-31.0); MEAN PLATELET VOLUME 9.3 fL (7.2-11.7); MONO # 0.6 K/uL (0.0-0.8); MONO % 7.7 % (0.0-10.0); NEUT # 4.8 K/uL (1.8-7.0); NEUT % 59.1 % (50.0-75.0); RBC 3.66 Mil/uL (4.40-5.90); RED CELL DISTRIBUTION WIDTH 15.4 % (11.5-14.5); WHITE BLOOD COUNT 8.2 K/uL (4.8-10.8)
[2017-11-02 08:59] LABS: ALBUMIN 3.4 g/dL (3.5-5.0); CALCIUM 8.6 mg/dl (8.6-10.4)
[2017-11-02] MEDS: (Novolog) Insulin Aspart, Recombinant 100 u/ml 10 ml vial SC SCH ×4 (09:00→21:14)
[2017-11-02] MEDS: Enoxaparin 40 mg Syringe SC SCH (09:00)
[2017-11-02] MEDS: Pantoprazole 40 mg EC Tab PO SCH (09:01)
[2017-11-02] MEDS: Multivitamin Vitamin B Complex (Nephro-Vite) Tab PO SCH (11:07)
--- NOTE | 2017-11-02 17:20 | CP.PCM.PN ---
Subjective - Date & Time of Evaluation Date of Evaluation: 11/02/17 Time of Evaluation: 10:00 - Subjective Subjective: clinically same Objective - Vital Signs/Intake and Output Vital Signs (last 24 hours): Temp Pulse Resp BP Pulse Ox 97.5 F L 53 L 18 138/62 99 11/02/17 15:31 11/02/17 15:31 11/02/17 15:31 11/02/17 15:31 11/02/17 15:31 Intake and Output: 11/02/17 11/02/17 06:59 18:59 Intake Total 240 500 Output Total 100 300 Balance 140 200 - Medications Medications: Current Medications Acetaminophen (Tylenol 325mg Tab) 650 mg PO Q6H PRN PRN Reason: MILD PAIN Amlodipine Besylate (Norvasc) 10 mg PO DAILY [facility] Last Admin: 11/02/17 09:01 Dose: 10 mg Calcium Acetate (Phoslo) 1,334 mg PO ACTID [facility] Last Admin: 11/02/17 11:06 Dose: 1,334 mg Enoxaparin Sodium (Lovenox) 40 mg SC DAILY [facility] Last Admin: 11/02/17 09:00 Dose: 40 mg Glimepiride (Amaryl) 4 mg PO DAILY [facility] Last Admin: 11/02/17 09:02 Dose: 4 mg Insulin Aspart (Novolog) 0 unit SC [facility] PRN Reason: Protocol Last Admin: 11/02/17 11:48 Dose: 1 unit Insulin Glargine (Lantus) 30 unit SC HS [facility] Last Admin: 11/01/17 21:17 Dose: 30 units Lamotrigine (Lamictal) 25 mg PO BID [facility] Last Admin: 11/02/17 09:01 Dose: 25 mg Losartan Potassium (Cozaar) 100 mg PO DAILY [facility] Last Admin: 11/02/17 09:01 Dose: 100 mg Morphine Sulfate (Morphine) 2 mg IVP Q6 PRN PRN Reason: Pain, severe (8-10) Pantoprazole Sodium (Protonix Ec Tab) 40 mg PO DAILY [facility] Last Admin: 11/02/17 09:01 Dose: 40 mg Rosuvastatin Calcium (Crestor) 10 mg PO HS [facility] Last Admin: 11/01/17 21:16 Dose: 10 mg Tamsulosin HCl (Flomax) 0.4 mg PO DAILY [facility] Last Admin: 11/02/17 09:01 Dose: 0.4 mg Vitamin B Complex/Vit C/Folic Acid (Nephro-Poly) 1 tab PO 0800 [facility] Last Admin: 11/02/17 11:07 Dose: Not Given - Labs Labs: 11/02/17 08:25 11/02/17 08:25 PT 11.6 SECONDS (9.7-12.2) 10/31/17 16:29 INR 1.0 10/31/17 16:29 APTT 27 SECONDS (21-34) 10/31/17 16:29 - Constitutional Appears: Well - Head Exam Head Exam: ATRAUMATIC, NORMAL INSPECTION, NORMOCEPHALIC - Eye Exam Eye Exam: EOMI, Normal appearance, PERRL Pupil Exam: NORMAL ACCOMODATION, PERRL - ENT Exam ENT Exam: Mucous Membranes Moist, Normal Exam - Neck Exam Neck Exam: Full ROM, Normal Inspection. absent: Lymphadenopathy - Respiratory Exam Respiratory Exam: Decreased Breath Sounds - Cardiovascular Exam Cardiovascular Exam: REGULAR RHYTHM, +S1, +S2 - GI/Abdominal Exam GI & Abdominal Exam: Soft, Diminished Bowel Sounds - Rectal Exam Rectal Exam: Deferred
--- NOTE | 2017-11-02 19:34 | PN ---
DATE: 11/02/2017 SUBJECTIVE: The patient denies any dizziness or headache. No retrosternal chest pain. No reported ventricular tachycardia. PHYSICAL EXAMINATION: VITAL SIGNS: Blood pressure 154/60, heart rate 64, temperature 99.6, respirations 18. HEENT: Normocephalic. CHEST: Diminished breath sounds at the bases. HEART: S1 and S2, regular. EXTREMITIES: 1+ pitting edema. LABORATORY DATA: Today's hemoglobin 10.5, hematocrit 30.1, and white count and platelet count are within normal limits. Today's BUN and creatinine 46 and 6.6. Potassium 3.8, glucose 163. Venous Doppler of the lower extremity, no evidence of DVT. ASSESSMENT: 1. Status post fall. 2. End-stage renal disease, on hemodialysis. 3. Mild anemia. 4. Degenerative cervical disk disease, rule out evidence of cord compression. 5. Coronary artery disease, status post coronary artery bypass surgery. RECOMMENDATIONS: Continue current Amaryl, Cozaar. Continue Crestor, subcutaneous Lovenox, and PhosLo. Discontinue Coreg as the patient is still in sinus bradycardia even after discontinuation of clonidine. Alex Lowe MD
--- NOTE | 2017-11-02 20:36 | CP.PCM.PN ---
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 LESLI on hold Continue with phos binders bp stable Glycemic control, Dialysis consistent diet f/u sw may need placement S: seen and examined no n/v Physical Examination: General Appearance: Comfortable, in no acute respiratory distress, co-operative . Vitals reviewed and noted as below Head; Atraumatic, normocephalic ENT: no ulcers no thrush. Tongue is midline. Oropharynx: no rash or ulcers. EYES: Pupils are equal, round and reactive to light accommodation. Sclera is anicteric. Neck; supple no lymphadenopathy, no thyromegaly or bruit Lungs: Normal respiratory rate/effort. Breath sounds bilateral equal and clear Heart: Normal rate. s1s2 normal. No rub or gallop. Extremities: no edema. No varicose veins Neurological: Patient is alert, awake and oriented to person, place and time. No focal deficit. Strength bilateral appropriate and equal Skin: Warm and dry. Normal turgor. No rash. Palpitation: Normal elasticity for age Abdomen: Abdomen is soft. Bowel sounds +. There is no abdominal tenderness, no guarding/rigidity or organomegaly Psych: normal insight and normal affect/mood MSK: no joint tenderness or swelling. Digits and nails normal, no deformity : kidney or bladder not palpable Access: AVF Labs/imaging reviewed. Past medical history, past surgical history, family history, social history, allergy reviewed and noted as below Family Hx: no hx of CKD. Non contributory Objective - Vital Signs/Intake and Output Vital Signs (last 24 hours): Temp Pulse Resp BP Pulse Ox 97.5 F L 53 L 18 138/62 99 11/02/17 15:31 11/02/17 15:31 11/02/17 15:31 11/02/17 15:31 11/02/17 15:31 Intake and Output: 11/02/17 11/03/17 18:59 06:59 Intake Total 500 Output Total 300 Balance 200 - Medications Medications: Current Medications Acetaminophen (Tylenol 325mg Tab) 650 mg PO Q6H PRN PRN Reason: MILD PAIN Amlodipine Besylate (Norvasc) 10 mg PO DAILY [facility] Last Admin: 11/02/17 09:01 Dose: 10 mg Calcium Acetate (Phoslo) 1,334 mg PO ACTID [facility] Last Admin: 11/02/17 17:22 Dose: 1,334 mg Enoxaparin Sodium (Lovenox) 40 mg SC DAILY [facility] Last Admin: 11/02/17 09:00 Dose: 40 mg Glimepiride (Amaryl) 4 mg PO DAILY [facility] Last Admin: 11/02/17 09:02 Dose: 4 mg Insulin Aspart (Novolog) 0 unit SC ACHS [facility] PRN Reason: Protocol Last Admin: 11/02/17 17:22 Dose: 1 unit Insulin Glargine (Lantus) 30 unit SC [facility] Last Admin: 11/01/17 21:17 Dose: 30 units Lamotrigine (Lamictal) 25 mg PO BID [facility] Last Admin: 11/02/17 17:22 Dose: 25 mg Losartan Potassium (Cozaar) 100 mg PO DAILY [facility] Last Admin: 11/02/17 09:01 Dose: 100 mg Morphine Sulfate (Morphine) 2 mg IVP Q6 PRN PRN Reason: Pain, severe (8-10) Pantoprazole Sodium (Protonix Ec Tab) 40 mg PO DAILY [facility] Last Admin: 11/02/17 09:01 Dose: 40 mg Rosuvastatin Calcium (Crestor) 10 mg PO HS [facility] Last Admin: 11/01/17 21:16 Dose: 10 mg Tamsulosin HCl (Flomax) 0.4 mg PO DAILY [facility] Last Admin: 11/02/17 09:01 Dose: 0.4 mg Vitamin B Complex/Vit C/Folic Acid (Nephro-Poly) 1 tab PO 0800 [facility] Last Admin: 11/02/17 11:07 Dose: Not Given - Labs Labs: 11/02/17 08:25 11/02/17 08:25 PT 11.6 SECONDS (9.7-12.2) 10/31/17 16:29 INR 1.0 03/30/18 16:29 APTT 27 SECONDS (21-34) 10/31/17 16:29
[2017-11-02] MEDS: (Lantus) Insulin Glargine, Recombinant SC SCH (21:14)
[2017-11-03] MEDS: (Novolog) Insulin Aspart, Recombinant 100 u/ml 10 ml vial SC SCH ×4 (08:24→21:32)
[2017-11-03] MEDS: Multivitamin Vitamin B Complex (Nephro-Vite) Tab PO SCH (09:11)
[2017-11-03] MEDS: Pantoprazole 40 mg EC Tab PO SCH (09:36)
[2017-11-03] MEDS: Enoxaparin 30 mg Syringe SC SCH (09:36)
--- NOTE | 2017-11-03 11:18 | PN ---
DATE: 11/03/2017 TIME OF EVALUATION: 07:10 a.m. NEUROLOGICAL PROBLEM: Recurrent syncopal attack. PHYSICAL EXAMINATION: VITAL SIGNS: Blood pressure 163/65, mean artery pressure of 97, respiratory rate 18, temperature 97.7, with a pulse rate of 57. GENERAL: The patient is more awake, alert, and oriented to person, place, and time. His speech is clear. He follows commands. No lateral signs. examination is clinically improved and no new episodes of syncope. NEUROLOGIC: The patient is neurologically stable. If medically stable, the patient can be discharged and should have followup visit with me as outpatient. Nathanael Barraza MD
--- NOTE | 2017-11-03 13:19 | CP.PCM.PN ---
Subjective - Date & Time of Evaluation Date of Evaluation: 11/03/17 Time of Evaluation: 10:40 - Subjective Subjective: clinically same Objective - Vital Signs/Intake and Output Vital Signs (last 24 hours): Temp Pulse Resp BP Pulse Ox 97.8 F 61 16 139/63 97 11/03/17 09:30 11/03/17 11:33 11/03/17 09:30 11/03/17 12:00 11/03/17 09:30 Intake and Output: 11/03/17 11/03/17 06:59 18:59 Output Total 150 Balance -150 - Medications Medications: Current Medications Acetaminophen (Tylenol 325mg Tab) 650 mg PO Q6H PRN PRN Reason: MILD PAIN Amlodipine Besylate (Norvasc) 10 mg PO DAILY [facility] Last Admin: 11/03/17 09:36 Dose: Not Given Calcium Acetate (Phoslo) 1,334 mg PO ACTID [facility] Last Admin: 11/03/17 11:56 Dose: Not Given Enoxaparin Sodium (Lovenox) 30 mg SC DAILY [facility] Last Admin: 11/03/17 09:36 Dose: Not Given Glimepiride (Amaryl) 4 mg PO DAILY [facility] Last Admin: 11/03/17 09:35 Dose: Not Given Insulin Aspart (Novolog) 0 unit SC [facility] PRN Reason: Protocol Last Admin: 11/03/17 11:56 Dose: Not Given Insulin Glargine (Lantus) 30 unit SC HS [facility] Last Admin: 11/02/17 21:14 Dose: 30 units Lamotrigine (Lamictal) 25 mg PO BID [facility] Last Admin: 11/03/17 09:35 Dose: Not Given Losartan Potassium (Cozaar) 100 mg PO DAILY [facility] Last Admin: 11/03/17 09:35 Dose: Not Given Morphine Sulfate (Morphine) 2 mg IVP Q6 PRN PRN Reason: Pain, severe (8-10) Pantoprazole Sodium (Protonix Ec Tab) 40 mg PO DAILY [facility] Last Admin: 11/03/17 09:36 Dose: Not Given Rosuvastatin Calcium (Crestor) 10 mg PO HS [facility] Last Admin: 11/02/17 21:14 Dose: 10 mg Tamsulosin HCl (Flomax) 0.4 mg PO DAILY [facility] Last Admin: 11/03/17 09:35 Dose: Not Given Vitamin B Complex/Vit C/Folic Acid (Nephro-Poly) 1 tab PO 0800 [facility] Last Admin: 11/03/17 09:11 Dose: Not Given - Labs Labs: 11/02/17 08:25 11/02/17 08:25 PT 11.6 SECONDS (9.7-12.2) 10/31/17 16:29 INR 1.0 10/31/17 16:29 APTT 27 SECONDS (21-34) 10/31/17 16:29 - Constitutional Appears: Well - Head Exam Head Exam: ATRAUMATIC, NORMAL INSPECTION, NORMOCEPHALIC - Eye Exam Eye Exam: EOMI, Normal appearance, PERRL Pupil Exam: NORMAL ACCOMODATION, PERRL - ENT Exam ENT Exam: Mucous Membranes Moist, Normal Exam - Neck Exam Neck Exam: Full ROM, Normal Inspection. absent: Lymphadenopathy - Respiratory Exam Respiratory Exam: Decreased Breath Sounds - Cardiovascular Exam Cardiovascular Exam: REGULAR RHYTHM, +S1, +S2 - GI/Abdominal Exam GI & Abdominal Exam: Soft, Diminished Bowel Sounds - Rectal Exam Rectal Exam: Deferred
--- NOTE | 2017-11-03 15:20 | CP.PCM.PN ---
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 Continue with Nephrovite 1 tab/day. PRBC as needed for anemia. Not on LESLI with HD as last Hb 10.5 Continue with phos binders home dose BP control with meds as ordered. Patient on RAAS ish as losartan Glycemic control, Dialysis consistent diet Further work up/management as per primary team Dose meds/antibiotics (if needed) for ESRD status. Avoid fleets enema/magnesium based laxatives. appreciate neuro input Thanks for allowing me to participate in care of your patient. Will follow patient with you. Please call if any Qs. d/w team Dr Edwardo Valenzuela Office: [phone] Chief Complaint;Fall at home HPI: Pt is a 77 m with hx of ESRD on hemodialysis (MWF) via avf , last dialysis Friday, chronic anemia, hyperphosphatemia, secondary hyperparathyroidism, Diabetes Mellitus, hypertension presented with complaints of Fall at home. Renal consult requested for ESRD management. ROS: Cardiovascular: No chest pain. Pulmonary: No shortness of breath Gastrointestinal: denies abdominal pain No nausea. No vomiting. Genitourinary: No pain while urinating. Denies blood in urine. All other negative except as mentioned in HPI Physical Examination: seen on HD General Appearance: Comfortable, in no acute respiratory distress, co-operative . Vitals reviewed and noted as below Head; Atraumatic, normocephalic ENT: no ulcers no thrush. Tongue is midline. Oropharynx: no rash or ulcers. EYES: Pupils are equal, round and reactive to light accommodation. Eye muscles and extraocular movement intact. Sclera is anicteric. Neck; supple no lymphadenopathy, no thyromegaly or bruit Lungs: Normal respiratory rate/effort. Breath sounds bilateral equal and clear Heart: Normal rate. s1s2 normal. No rub or gallop. Extremities: no edema. No varicose veins Neurological: Patient is alert, awake and oriented to person, place and time. No focal deficit. Strength bilateral appropriate and equal Skin: Warm and dry. Normal turgor. No rash. Palpitation: Normal elasticity for age Abdomen: Abdomen is soft. Bowel sounds +. There is no abdominal tenderness, no guarding/rigidity or organomegaly Psych: normal insight and normal affect/mood MSK: no joint tenderness or swelling. Digits and nails normal, no deformity : kidney or bladder not palpable Access: AVF Labs/imaging reviewed. Past medical history, past surgical history, family history, social history, allergy reviewed and noted as below Family Hx: no hx of CKD. Non contributory Objective - Vital Signs/Intake and Output Vital Signs (last 24 hours): Temp Pulse Resp BP Pulse Ox 97.5 F L 62 16 121/52 L 100 11/03/17 13:41 11/03/17 13:41 11/03/17 13:41 11/03/17 13:41 11/03/17 13:41 Intake and Output: 11/03/17 11/03/17 06:59 18:59 Intake Total 400 Output Total 150 200 Balance -150 200 - Medications Medications: Current Medications Acetaminophen (Tylenol 325mg Tab) 650 mg PO Q6H PRN PRN Reason: MILD PAIN Amlodipine Besylate (Norvasc) 10 mg PO DAILY [facility] Last Admin: 11/03/17 09:36 Dose: Not Given Aspirin (Aspirin Chewable) 81 mg PO DAILY [facility] Last Admin: 11/03/17 14:11 Dose: 81 mg Calcium Acetate (Phoslo) 1,334 mg PO ACTID [facility] Last Admin: 11/03/17 11:56 Dose: Not Given Enoxaparin Sodium (Lovenox) 30 mg SC DAILY [facility] Last Admin: 11/03/17 09:36 Dose: Not Given Glimepiride (Amaryl) 4 mg PO DAILY [facility] Last Admin: 11/03/17 09:35 Dose: Not Given Insulin Aspart (Novolog) 0 unit SC [facility]S [facility] PRN Reason: Protocol Last Admin: 11/03/17 11:56 Dose: Not Given Insulin Glargine (Lantus) 30 unit SC [facility] Last Admin: 11/02/17 21:14 Dose: 30 units Lamotrigine (Lamictal) 25 mg PO BID [facility] Last Admin: 11/03/17 09:35 Dose: Not Given Losartan Potassium (Cozaar) 100 mg PO DAILY [facility] Last Admin: 11/03/17 09:35 Dose: Not Given Morphine Sulfate (Morphine) 2 mg IVP Q6 PRN PRN Reason: Pain, severe (8-10) Pantoprazole Sodium (Protonix Ec Tab) 40 mg PO DAILY [facility] Last Admin: 11/03/17 09:36 Dose: Not Given Rosuvastatin Calcium (Crestor) 10 mg PO HS [facility] Last Admin: 11/02/17 21:14 Dose: 10 mg Tamsulosin HCl (Flomax) 0.4 mg PO DAILY [facility] Last Admin: 11/03/17 09:35 Dose: Not Given Vitamin B Complex/Vit C/Folic Acid (Nephro-Poly) 1 tab PO 0800 [facility] Last Admin: 11/03/17 09:11 Dose: Not Given - Labs Labs: 11/02/17 08:25 11/02/17 08:25 PT 11.6 SECONDS (9.7-12.2) 10/31/17 16:29 INR 1.0 10/31/17 16:29 APTT 27 SECONDS (21-34) 10/31/17 16:29
--- NOTE | 2017-11-03 16:22 | PN ---
DATE: SUBJECTIVE: The patient is undergoing hemodialysis. He denies any dizziness or headache. No chest pain. PHYSICAL EXAMINATION: VITAL SIGNS: Blood pressure 159/63, heart rate 61, temperature 97.8, respirations 16. HEENT: Normocephalic. CHEST: Clear. HEART: S1 and S2, regular. EXTREMITIES: Trace leg edema. LABORATORY DATA: Today's blood sugars are 133 and 201. RPR is nonreactive. ASSESSMENT: 1. Status post fall. 2. End-stage renal disease, on hemodialysis. 3. Coronary artery disease, status post coronary artery bypass surgery in the past. 4. Anemia. 5. Degenerative cervical disk disease, rule out evidence of cord compression. RECOMMENDATIONS: Continue current Amaryl, Cozaar, Crestor, Lamictal, subcutaneous Lovenox at 30 mg once a day. Start aspirin at 81 mg once a day and consider permanent prison placement as he mentioned to me he is not able to assist himself to go to the bathroom and he lives by himself with few hours of home care visits. Alex Lowe MD
[2017-11-03] MEDS: (Lantus) Insulin Glargine, Recombinant SC SCH (21:24)
[2017-11-04] MEDS: (Novolog) Insulin Aspart, Recombinant 100 u/ml 10 ml vial SC SCH ×4 (08:22→21:33)
[2017-11-04] MEDS: Multivitamin Vitamin B Complex (Nephro-Vite) Tab PO SCH (08:57)
[2017-11-04] MEDS: Pantoprazole 40 mg EC Tab PO SCH (09:07)
[2017-11-04] MEDS: Enoxaparin 30 mg Syringe SC SCH (09:07)
--- NOTE | 2017-11-04 11:44 | PN ---
DATE: 11/04/2017 NEUROLOGIC PROBLEM: Syncopal attack. PHYSICAL EXAMINATION: VITAL SIGNS: Blood pressure 130/69, mean artery pressure of 89, respiratory rate 16, temperature afebrile. NEUROLOGIC: The patient is more awake, alert and oriented to person, place, and time. Speech is clear. Naming, repetition all intact. Cranial nerve examination is normal. Motor examination is almost normal except mild distal sensory motor neuropathy. Electroencephalogram shows mild slowing activities noted for his age, it may be normal. From neurological point of view, the patient is cleared to be discharged. The patient should have followup visit with me as outpatient for further workup for his syncope as well as his sleep-related breathing disorders. Nathanael Barraza MD
--- NOTE | 2017-11-04 16:44 | CP.PCM.PN ---
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 Continue with Nephrovite 1 tab/day. PRBC as needed for anemia. Not on LESLI with HD as last Hb 10.5 Continue with phos binders home dose BP control with meds as ordered. Patient on RAAS ish as losartan Glycemic control, Dialysis consistent diet Further work up/management as per primary team Dose meds/antibiotics (if needed) for ESRD status. Avoid fleets enema/magnesium based laxatives. appreciate neuro input SW/CM for d/c planning ? placement in SNF Thanks for allowing me to participate in care of your patient. Will follow patient with you. Please call if any Qs. d/w team Dr Edwardo Valenzuela Office: [phone] Chief Complaint;Fall at home HPI: Pt is a 77 m with hx of ESRD on hemodialysis (MWF) via avf , last dialysis Friday, chronic anemia, hyperphosphatemia, secondary hyperparathyroidism, Diabetes Mellitus, hypertension presented with complaints of Fall at home. Renal consult requested for ESRD management. ROS: Cardiovascular: No chest pain. Pulmonary: No shortness of breath Gastrointestinal: denies abdominal pain No nausea. No vomiting. Genitourinary: No pain while urinating. Denies blood in urine. All other negative except as mentioned in HPI Physical Examination: General Appearance: Comfortable, in no acute respiratory distress, co-operative . Vitals reviewed and noted as below Head; Atraumatic, normocephalic ENT: no ulcers no thrush. Tongue is midline. Oropharynx: no rash or ulcers. EYES: Pupils are equal, round and reactive to light accommodation. Eye muscles and extraocular movement intact. Sclera is anicteric. Neck; supple no lymphadenopathy, no thyromegaly or bruit Lungs: Normal respiratory rate/effort. Breath sounds bilateral equal and clear Heart: Normal rate. s1s2 normal. No rub or gallop. Extremities: no edema. No varicose veins Neurological: Patient is alert, awake and oriented to person, place and time. No focal deficit. Strength bilateral appropriate and equal Skin: Warm and dry. Normal turgor. No rash. Palpitation: Normal elasticity for age Abdomen: Abdomen is soft. Bowel sounds +. There is no abdominal tenderness, no guarding/rigidity or organomegaly Psych: normal insight and normal affect/mood MSK: no joint tenderness or swelling. Digits and nails normal, no deformity : kidney or bladder not palpable Access: AVF Labs/imaging reviewed. Past medical history, past surgical history, family history, social history, allergy reviewed and noted as below Family Hx: no hx of CKD. Non contributory Objective - Vital Signs/Intake and Output Vital Signs (last 24 hours): Temp Pulse Resp BP Pulse Ox 97.8 F 64 20 133/68 95 11/04/17 15:20 11/04/17 16:25 11/04/17 15:20 11/04/17 15:20 11/04/17 15:20 Intake and Output: 11/04/17 11/04/17 06:59 18:59 Intake Total 240 400 Output Total 200 500 Balance 40 -100 - Medications Medications: Current Medications Acetaminophen (Tylenol 325mg Tab) 650 mg PO Q6H PRN PRN Reason: MILD PAIN Amlodipine Besylate (Norvasc) 10 mg PO DAILY [facility] Last Admin: 11/04/17 09:07 Dose: 10 mg Aspirin (Aspirin Chewable) 81 mg PO DAILY [facility] Last Admin: 11/04/17 09:07 Dose: 81 mg Calcium Acetate (Phoslo) 1,334 mg PO ACTID [facility] Last Admin: 11/04/17 12:37 Dose: 1,334 mg Enoxaparin Sodium (Lovenox) 30 mg SC DAILY [facility] Last Admin: 11/04/17 09:07 Dose: 30 mg Glimepiride (Amaryl) 4 mg PO DAILY [facility] Last Admin: 11/04/17 09:06 Dose: 4 mg Insulin Aspart (Novolog) 0 unit SC [facility] PRN Reason: Protocol Last Admin: 11/04/17 12:38 Dose: 4 unit Insulin Glargine (Lantus) 30 unit SC [facility] Last Admin: 11/03/17 21:24 Dose: 30 units Lamotrigine (Lamictal) 25 mg PO BID [facility] Last Admin: 11/04/17 09:07 Dose: 25 mg Losartan Potassium (Cozaar) 100 mg PO DAILY [facility] Last Admin: 11/04/17 09:07 Dose: 100 mg Pantoprazole Sodium (Protonix Ec Tab) 40 mg PO DAILY [facility] Last Admin: 11/04/17 09:07 Dose: 40 mg Rosuvastatin Calcium (Crestor) 10 mg PO HS [facility] Last Admin: 11/03/17 21:24 Dose: 10 mg Tamsulosin HCl (Flomax) 0.4 mg PO DAILY [facility] Last Admin: 11/04/17 09:06 Dose: 0.4 mg Vitamin B Complex/Vit C/Folic Acid (Nephro-Poly) 1 tab PO 0800 [facility] Last Admin: 11/04/17 08:57 Dose: 1 tab - Labs Labs: 11/02/17 08:25 11/02/17 08:25 PT 11.6 SECONDS (9.7-12.2) 10/31/17 16:29 INR 1.0 10/31/17 16:29 APTT 27 SECONDS (21-34) 10/31/17 16:29
--- NOTE | 2017-11-04 19:31 | PN ---
DATE: SUBJECTIVE: The patient denies chest pain. PHYSICAL EXAMINATION: VITAL SIGNS: Blood pressure 162/64, heart rate 57, temperature 97.4, respirations 20. HEENT: Normocephalic. CHEST: Diminished breath sounds over the bases. HEART: S1 and S2, regular. EXTREMITIES: Trace leg edema. LABORATORY DATA: Today's blood sugars are 117 and 344. ASSESSMENT: 1. Status post fall. 2. Coronary artery disease, status post coronary artery bypass surgery. 3. End-stage renal disease, on hemodialysis. 4. Anemia. 5. Degenerative cervical disk disease without evidence of cord compression. RECOMMENDATIONS: Continue current Amaryl, aspirin 81 mg once a day, Cozaar 100 mg once a day, Crestor 10 mg once a day, Lovenox 30 mg subcutaneously once a day. The patient's permanent detention placement has to wait for the patient's Medicaid approval. Alex Lowe MD
[2017-11-04] MEDS: (Lantus) Insulin Glargine, Recombinant SC SCH (21:32)
--- NOTE | 2017-11-04 21:56 | CP.PCM.PN ---
Subjective - Date & Time of Evaluation Date of Evaluation: 11/04/17 Time of Evaluation: 12:00 - Subjective Subjective: clinically same Objective - Vital Signs/Intake and Output Vital Signs (last 24 hours): Temp Pulse Resp BP Pulse Ox 97.8 F 64 20 133/68 95 11/04/17 15:20 11/04/17 16:25 11/04/17 15:20 11/04/17 15:20 11/04/17 15:20 Intake and Output: 11/04/17 11/05/17 18:59 06:59 Intake Total 400 Output Total 500 Balance -100 - Medications Medications: Current Medications Acetaminophen (Tylenol 325mg Tab) 650 mg PO Q6H PRN PRN Reason: MILD PAIN Amlodipine Besylate (Norvasc) 10 mg PO DAILY [facility] Last Admin: 11/04/17 09:07 Dose: 10 mg Aspirin (Aspirin Chewable) 81 mg PO DAILY [facility] Last Admin: 11/04/17 09:07 Dose: 81 mg Calcium Acetate (Phoslo) 1,334 mg PO ACTID [facility] Last Admin: 11/04/17 17:23 Dose: 1,334 mg Enoxaparin Sodium (Lovenox) 30 mg SC DAILY [facility] Last Admin: 11/04/17 09:07 Dose: 30 mg Glimepiride (Amaryl) 4 mg PO DAILY [facility] Last Admin: 11/04/17 09:06 Dose: 4 mg Insulin Aspart (Novolog) 0 unit SC [facility] PRN Reason: Protocol Last Admin: 11/04/17 21:33 Dose: 3 unit Insulin Glargine (Lantus) 30 unit SC [facility] Last Admin: 11/04/17 21:32 Dose: 30 units Lamotrigine (Lamictal) 25 mg PO BID [facility] Last Admin: 11/04/17 17:23 Dose: 25 mg Losartan Potassium (Cozaar) 100 mg PO DAILY [facility] Last Admin: 11/04/17 09:07 Dose: 100 mg Pantoprazole Sodium (Protonix Ec Tab) 40 mg PO DAILY [facility] Last Admin: 11/04/17 09:07 Dose: 40 mg Rosuvastatin Calcium (Crestor) 10 mg PO HS [facility] Last Admin: 11/04/17 21:33 Dose: 10 mg Tamsulosin HCl (Flomax) 0.4 mg PO DAILY [facility] Last Admin: 11/04/17 09:06 Dose: 0.4 mg Vitamin B Complex/Vit C/Folic Acid (Nephro-Poly) 1 tab PO 0800 [facility] Last Admin: 11/04/17 08:57 Dose: 1 tab - Labs Labs: 11/02/17 08:25 11/02/17 08:25 PT 11.6 SECONDS (9.7-12.2) 10/31/17 16:29 INR 1.0 10/31/17 16:29 APTT 27 SECONDS (21-34) 10/31/17 16:29 - Constitutional Appears: Well - Head Exam Head Exam: ATRAUMATIC, NORMAL INSPECTION, NORMOCEPHALIC - Eye Exam Eye Exam: EOMI, Normal appearance, PERRL Pupil Exam: NORMAL ACCOMODATION, PERRL - ENT Exam ENT Exam: Mucous Membranes Moist, Normal Exam - Neck Exam Neck Exam: Full ROM, Normal Inspection. absent: Lymphadenopathy - Respiratory Exam Respiratory Exam: Decreased Breath Sounds - Cardiovascular Exam Cardiovascular Exam: REGULAR RHYTHM, +S1, +S2 - GI/Abdominal Exam GI & Abdominal Exam: Soft, Diminished Bowel Sounds - Rectal Exam Rectal Exam: Deferred
[2017-11-05] MEDS: Multivitamin Vitamin B Complex (Nephro-Vite) Tab PO SCH (08:25)
[2017-11-05] MEDS: (Novolog) Insulin Aspart, Recombinant 100 u/ml 10 ml vial SC SCH ×4 (08:27→21:18)
[2017-11-05] MEDS: Pantoprazole 40 mg EC Tab PO SCH (09:25)
[2017-11-05] MEDS: Enoxaparin 30 mg Syringe SC SCH (09:30)
--- NOTE | 2017-11-05 09:42 | CP.PCM.PN ---
Subjective - Date & Time of Evaluation Date of Evaluation: 11/05/17 Time of Evaluation: 10:40 - Subjective Subjective: clinically same Objective - Vital Signs/Intake and Output Vital Signs (last 24 hours): Temp Pulse Resp BP Pulse Ox 98.3 F 63 20 149/67 98 11/05/17 08:13 11/05/17 08:13 11/05/17 08:13 11/05/17 08:13 11/05/17 08:13 Intake and Output: 11/05/17 11/05/17 06:59 18:59 Intake Total 420 Output Total 900 Balance -480 - Medications Medications: Current Medications Acetaminophen (Tylenol 325mg Tab) 650 mg PO Q6H PRN PRN Reason: MILD PAIN Amlodipine Besylate (Norvasc) 10 mg PO DAILY [facility] Last Admin: 11/04/17 09:07 Dose: 10 mg Aspirin (Aspirin Chewable) 81 mg PO DAILY [facility] Last Admin: 11/05/17 09:22 Dose: Not Given Calcium Acetate (Phoslo) 1,334 mg PO ACTID [facility] Last Admin: 11/05/17 08:25 Dose: 1,334 mg Enoxaparin Sodium (Lovenox) 30 mg SC DAILY [facility] Last Admin: 11/05/17 09:30 Dose: Not Given Glimepiride (Amaryl) 4 mg PO DAILY [facility] Last Admin: 11/05/17 09:22 Dose: Not Given Insulin Aspart (Novolog) 0 unit SC [facility] PRN Reason: Protocol Last Admin: 11/05/17 08:27 Dose: 2 unit Insulin Glargine (Lantus) 30 unit SC [facility] Last Admin: 11/04/17 21:32 Dose: 30 units Lamotrigine (Lamictal) 25 mg PO BID [facility] Last Admin: 11/05/17 09:25 Dose: 25 mg Losartan Potassium (Cozaar) 100 mg PO DAILY [facility] Last Admin: 11/04/17 09:07 Dose: 100 mg Pantoprazole Sodium (Protonix Ec Tab) 40 mg PO DAILY [facility] Last Admin: 11/05/17 09:25 Dose: 40 mg Rosuvastatin Calcium (Crestor) 10 mg PO HS [facility] Last Admin: 11/04/17 21:33 Dose: 10 mg Tamsulosin HCl (Flomax) 0.4 mg PO DAILY [facility] Last Admin: 11/05/17 09:25 Dose: 0.4 mg Vitamin B Complex/Vit C/Folic Acid (Nephro-Poly) 1 tab PO 0800 [facility] Last Admin: 11/05/17 08:25 Dose: 1 tab - Labs Labs: 11/02/17 08:25 11/02/17 08:25 PT 11.6 SECONDS (9.7-12.2) 10/31/17 16:29 INR 1.0 10/31/17 16:29 APTT 27 SECONDS (21-34) 10/31/17 16:29 - Constitutional Appears: Well - Head Exam Head Exam: ATRAUMATIC, NORMAL INSPECTION, NORMOCEPHALIC - Eye Exam Eye Exam: EOMI, Normal appearance, PERRL Pupil Exam: NORMAL ACCOMODATION, PERRL - ENT Exam ENT Exam: Mucous Membranes Moist, Normal Exam - Neck Exam Neck Exam: Full ROM, Normal Inspection. absent: Lymphadenopathy - Respiratory Exam Respiratory Exam: Decreased Breath Sounds - Cardiovascular Exam Cardiovascular Exam: REGULAR RHYTHM, +S1, +S2 - GI/Abdominal Exam GI & Abdominal Exam: Soft, Diminished Bowel Sounds - Rectal Exam Rectal Exam: Deferred
--- NOTE | 2017-11-05 10:21 | EEG ---
DATE: 11/01/2017 This is a 16-channel electroencephalogram of an awake and drowsy adult. During the study, photic stimulation was performed. Hyperventilation was not performed. The resting electroencephalogram consists of 20-30 mV diffuse 5-7 Hz theta activity seen in bilateral cortical leads. Intermittent movement artifact contaminated the background rhythm. This is followed with high amplitude 2-3 Hz delta activity seen which is consistent with the earlier drowsiness. The photic stimulation did not evoke driving response noted at 2-20 Hz. IMPRESSION: This is an abnormal electroencephalogram because of persistent slowing throughout the record suggestive of bilateral cerebral dysfunction. This is probably secondary to metabolic vascular degenerative process. Please correlate the findings with the neurological and radiological studies. Nathanael Barraza MD
--- NOTE | 2017-11-05 10:26 | CP.PCM.PN ---
Subjective - Date & Time of Evaluation Date of Evaluation: 11/05/17 Time of Evaluation: 10:24 - Subjective Subjective: Patient in bed No shortness of breath no difficulty breathing No nausea or vomiting Objective - Vital Signs/Intake and Output Vital Signs (last 24 hours): Temp Pulse Resp BP Pulse Ox 98.3 F 63 20 149/67 98 11/05/17 08:13 11/05/17 08:13 11/05/17 08:13 11/05/17 08:13 11/05/17 08:13 Intake and Output: 11/05/17 11/05/17 06:59 18:59 Intake Total 420 Output Total 900 Balance -480 - Medications Medications: Current Medications Acetaminophen (Tylenol 325mg Tab) 650 mg PO Q6H PRN PRN Reason: MILD PAIN Amlodipine Besylate (Norvasc) 10 mg PO DAILY [facility] Last Admin: 11/04/17 09:07 Dose: 10 mg Aspirin (Aspirin Chewable) 81 mg PO DAILY [facility] Last Admin: 11/05/17 09:22 Dose: Not Given Calcium Acetate (Phoslo) 1,334 mg PO ACTID [facility] Last Admin: 11/05/17 08:25 Dose: 1,334 mg Enoxaparin Sodium (Lovenox) 30 mg SC DAILY [facility] Last Admin: 11/05/17 09:30 Dose: Not Given Glimepiride (Amaryl) 4 mg PO DAILY [facility] Last Admin: 11/05/17 09:22 Dose: Not Given Insulin Aspart (Novolog) 0 unit SC [facility] PRN Reason: Protocol Last Admin: 11/05/17 08:27 Dose: 2 unit Insulin Glargine (Lantus) 30 unit SC [facility] Last Admin: 11/04/17 21:32 Dose: 30 units Lamotrigine (Lamictal) 25 mg PO BID [facility] Last Admin: 11/05/17 09:25 Dose: 25 mg Losartan Potassium (Cozaar) 100 mg PO DAILY [facility] Last Admin: 11/04/17 09:07 Dose: 100 mg Pantoprazole Sodium (Protonix Ec Tab) 40 mg PO DAILY [facility] Last Admin: 11/05/17 09:25 Dose: 40 mg Rosuvastatin Calcium (Crestor) 10 mg PO HS [facility] Last Admin: 11/04/17 21:33 Dose: 10 mg Tamsulosin HCl (Flomax) 0.4 mg PO DAILY [facility] Last Admin: 11/05/17 09:25 Dose: 0.4 mg Vitamin B Complex/Vit C/Folic Acid (Nephro-Poly) 1 tab PO 0800 [facility] Last Admin: 11/05/17 08:25 Dose: 1 tab - Labs Labs: 11/02/17 08:25 11/02/17 08:25 PT 11.6 SECONDS (9.7-12.2) 10/31/17 16:29 INR 1.0 10/31/17 16:29 APTT 27 SECONDS (21-34) 10/31/17 16:29 - Constitutional Appears: No Acute Distress - ENT Exam ENT Exam: Mucous Membranes Moist - Neck Exam Neck Exam: absent: Lymphadenopathy - Respiratory Exam Respiratory Exam: NORMAL BREATHING PATTERN. 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 Continue with Nephrovite 1 tab/day. PRBC as needed for anemia. Not on LESLI with HD as last Hb 10.5 Continue with phos binders home dose BP control with meds as ordered. Patient on RAAS ish as losartan Glycemic control, Dialysis consistent diet Further work up/management as per primary team group social worker involvement for home situation Status: Acute
--- NOTE | 2017-11-05 12:28 | CP.PCM.CON ---
<Eeluterio Negro - Last Filed: 11/05/17 13:41> History of Present Illness - History of Present Illness History of Present Illness: PGY5 GI Fellow Consult Note Patient is a 77yo male with PMHx significant for ESRD on HD, uncontrolled DM, HTN, anemia who was brought to the ED after being found on the ground at his home. The patient had no recollection of the fall and could not provide any further history as to what occurred prior to admission. Per EMR, patient was hyperglycemic, given insulin and transported to the ED. Our service has been consulted for nausea and vomiting. The patient states he was eating breakfast this morning when he suddenly became nauseated and regurgitated his undigested food. Currently, he is seen in dialysis where he denies any complaints at the moment, is hungry and asking for lunch. Separately, admits to 2-3 days of diarrhea but currently complaining of constipation for last 3 days. He denies any abdominal pain, nausea, fever, chills. PMHx: See HPI PSHx: Left AVF FHx: Discussed with patient and he denies any significant family history Social: Denies tobacco, EtOH or illicit drug use Endo: No prior endoscopic evaluations 12 system ROS performed and negative except where stated. Past Patient History - Infectious Disease Hx of Infectious Diseases: None - Past Medical History & Family History Past Medical History?: Yes - Past Social History Smoking Status: Former Smoker - CARDIAC Hx Cardiac Disorders: Yes (CAD, CABG,) Hx Congestive Heart Failure: Yes Hx Hypercholesterolemia: Yes Hx Hypertension: Yes - PULMONARY Hx Chronic Obstructive Pulmonary Disease (COPD): Yes - NEUROLOGICAL Hx Dementia: Yes - HEENT Hx HEENT Problems: Yes Hx Cataracts: Yes (bilat iol) - RENAL Hx Renal Failure: Yes (ESRD, CKD,) - ENDOCRINE/METABOLIC Hx Diabetes Mellitus Type 1: Yes - HEMATOLOGICAL/ONCOLOGICAL Hx Blood Disorders: No - INTEGUMENTARY Hx Dermatological Problems: Yes (ble with discoloration) - MUSCULOSKELETAL/RHEUMATOLOGICAL Hx Arthritis: Yes - GASTROINTESTINAL Hx Gastrointestinal Disorders: Yes Hx Gastroesophageal Reflux: Yes - GENITOURINARY/GYNECOLOGICAL Hx Genitourinary Disorders: Yes Other/Comment: BPH - PSYCHIATRIC Hx Bipolar Disorder: Yes Hx Substance Use: No - SURGICAL HISTORY Hx Coronary Artery Bypass Graft: Yes (Aortive valve replacement9 Tissue valve ) in 07/[address] [facility] in [place]) - ANESTHESIA Hx Anesthesia: Yes Hx Anesthesia Reactions: No Hx Malignant Hyperthermia: No Meds Allergies/Adverse Reactions: Allergies Allergy/AdvReac Type Severity Reaction Status Date / Time No Known Allergies Allergy Verified 10/30/17 14:11 - Medications Medications: Current Medications Acetaminophen (Tylenol 325mg Tab) 650 mg PO Q6H PRN PRN Reason: MILD PAIN Amlodipine Besylate (Norvasc) 10 mg PO DAILY [facility] Last Admin: 11/04/17 09:07 Dose: 10 mg Aspirin (Aspirin Chewable) 81 mg PO DAILY [facility] Last Admin: 11/05/17 09:22 Dose: Not Given Calcium Acetate (Phoslo) 1,334 mg PO ACTID [facility] Last Admin: 11/05/17 08:25 Dose: 1,334 mg Enoxaparin Sodium (Lovenox) 30 mg SC DAILY [facility] Last Admin: 11/05/17 09:30 Dose: Not Given Glimepiride (Amaryl) 4 mg PO DAILY [facility] Last Admin: 11/05/17 09:22 Dose: Not Given Insulin Aspart (Novolog) 0 unit SC [facility] PRN Reason: Protocol Last Admin: 11/05/17 11:48 Dose: Not Given Insulin Glargine (Lantus) 30 unit SC [facility] Last Admin: 11/04/17 21:32 Dose: 30 units Lamotrigine (Lamictal) 25 mg PO BID [facility] Last Admin: 11/05/17 09:25 Dose: 25 mg Losartan Potassium (Cozaar) 100 mg PO DAILY [facility] Last Admin: 11/04/17 09:07 Dose: 100 mg Pantoprazole Sodium (Protonix Ec Tab) 40 mg PO DAILY [facility] Last Admin: 11/05/17 09:25 Dose: 40 mg Rosuvastatin Calcium (Crestor) 10 mg PO HS [facility] Last Admin: 11/04/17 21:33 Dose: 10 mg Tamsulosin HCl (Flomax) 0.4 mg PO DAILY [facility] Last Admin: 11/05/17 09:25 Dose: 0.4 mg Vitamin B Complex/Vit C/Folic Acid (Nephro-Poly) 1 tab PO 0800 [facility] Last Admin: 11/05/17 08:25 Dose: 1 tab Physical Exam - Constitutional Appears: Non-toxic, No Acute Distress - Eye Exam Eye Exam: EOMI, PERRL - ENT Exam ENT Exam: Mucous Membranes Moist - Respiratory Exam Respiratory Exam: Clear to Auscultation Bilateral. absent: Rales, Rhonchi, Wheezes - Cardiovascular Exam Cardiovascular Exam: RRR, +S1, +S2 - GI/Abdominal Exam GI & Abdominal Exam: Normal Bowel Sounds, Soft. absent: Distended, Firm, Guarding, Organomegaly, Rigid, Tenderness - Extremities Exam Extremities exam: Positive for: normal inspection. Negative for: pedal edema - Neurological Exam Neurological exam: Alert, Oriented x3 Additional comments: facial movmenets c/w EPS - Psychiatric Exam Psychiatric exam: Normal Affect, Normal Mood - Skin Skin Exam: Dry, Warm Results - Vital Signs Recent Vital Signs: Last Vital Signs Temp 98.2 F 11/05/17 09:50 Pulse 63 11/05/17 09:50 Resp 16 11/05/17 09:50 BP 139/60 11/05/17 10:25 Pulse Ox 100 11/05/17 09:50 - Labs Result Diagrams: 11/05/17 13:05 11/02/17 08:25 Labs: Laboratory Results - last 24 hr 11/04/17 11/04/17 11/05/17 16:42 21:28 02:04 POC Glucose (mg/dL) 440 H* 407 H* 319 H 11/05/17 11/05/17 06:20 11:25 POC Glucose (mg/dL) 210 H 121 H Assessment & Plan - Assessment and Plan (Free Text) Assessment: Patient is a 77yo male with PMHx significant for ESRD on HD, uncontrolled DM, HTN, anemia who was brought to the ED after being found on the ground at his home. Our service was consulted for nausea/vomiting. -Episode of nausea with regurgitation -Anemia -Constipation -ESRD on HD MWF -DM -HTN Plan: -One episode of nausea with regurgitation this morning, witnessed -Asymptomatic at present time, requesting lunch -OK to feed patient, monitor for ongoing symptoms -Antiemetics PRN -Given presence of anemia would recommend outpatient EGD/colonoscopy for further evaluation -Miralax 17g PO QD - Date & Time Date: 11/05/17 Time: 11:00 <Migue Tillman - Last Filed: 11/05/17 18:22> Meds - Medications Medications: Current Medications Acetaminophen (Tylenol 325mg Tab) 650 mg PO Q6H PRN PRN Reason: MILD PAIN Amlodipine Besylate (Norvasc) 10 mg PO DAILY [facility] Last Admin: 11/05/17 11:00 Dose: Not Given Aspirin (Aspirin Chewable) 81 mg PO DAILY [facility] Last Admin: 11/05/17 09:22 Dose: Not Given Calcium Acetate (Phoslo) 1,334 mg PO ACTID [facility] Last Admin: 11/05/17 17:45 Dose: 1,334 mg Enoxaparin Sodium (Lovenox) 30 mg SC DAILY [facility] Last Admin: 11/05/17 09:30 Dose: Not Given Glimepiride (Amaryl) 4 mg PO DAILY [facility] Last Admin: 11/05/17 09:22 Dose: Not Given Insulin Aspart (Novolog) 0 unit SC [facility] PRN Reason: Protocol Last Admin: 11/05/17 17:45 Dose: 1 unit Insulin Glargine (Lantus) 30 unit SC HS [facility] Last Admin: 11/04/17 21:32 Dose: 30 units Lamotrigine (Lamictal) 25 mg PO BID [facility] Last Admin: 11/05/17 09:25 Dose: 25 mg Losartan Potassium (Cozaar) 100 mg PO DAILY [facility] Last Admin: 11/05/17 11:00 Dose: Not Given Pantoprazole Sodium (Protonix Ec Tab) 40 mg PO DAILY [facility] Last Admin: 11/05/17 09:25 Dose: 40 mg Rosuvastatin Calcium (Crestor) 10 mg PO HS [facility] Last Admin: 11/04/17 21:33 Dose: 10 mg Tamsulosin HCl (Flomax) 0.4 mg PO DAILY [facility] Last Admin: 11/05/17 09:25 Dose: 0.4 mg Vitamin B Complex/Vit C/Folic Acid (Nephro-Poly) 1 tab PO 0800 [facility] Last Admin: 11/05/17 08:25 Dose: 1 tab Results - Vital Signs Recent Vital Signs: Last Vital Signs Temp 98.4 F 11/05/17 15:22 Pulse 65 11/05/17 15:22 Resp 20 11/05/17 15:22 BP 104/58 L 11/05/17 15:22 Pulse Ox 95 11/05/17 15:22 - Labs Result Diagrams: 11/05/17 13:05 11/02/17 08:25 Labs: Laboratory Results - last 24 hr 04/10/1911/05/17 11/05/17 21:28 02:04 06:20 WBC RBC Hgb Hct MCV MCH MCHC RDW Plt Count MPV Neut % (Auto) Lymph % (Auto) [place] % (Auto) Eos % (Auto) Baso % (Auto) Neut # (Auto) Lymph # (Auto) [place] # (Auto) Eos # (Auto) Baso # (Auto) POC Glucose (mg/dL) 407 H* 319 H 210 H 11/05/17 11/05/17 11/05/17 11:25 13:05 16:07 WBC 9.3 RBC 4.03 L Hgb 11.6 L Hct 33.1 L MCV 82.0 MCH 28.8 MCHC 35.1 RDW 15.9 H Plt Count 154 MPV 9.3 Neut % (Auto) 67.9 Lymph % (Auto) 20.7 [place] % (Auto) 7.9 Eos % (Auto) 2.7 Baso % (Auto) 0.8 Neut # (Auto) 6.3 Lymph # (Auto) 1.9 [place] # (Auto) 0.7 Eos # (Auto) 0.2 Baso # (Auto) 0.1 POC Glucose (mg/dL) 121 H 174 H Attending/Attestation - Attestation I have personally seen and examined this patient.: Yes I have fully participated in the care of the patient.: Yes I have reviewed all pertinent clinical information: Yes Notes (Text): 11/05/17 18:16 I have seen and examined patient with GI fellow. Agree with above documentation with the following additions. In brief, this is a 77 year old male with history of ESRD on HD, DM, HTN, anemia, who was initially brought to hospital for evaluation of altered mental status after being found at home following syncopal episode. GI called for evaluation of nausea and vomiting. He describes one episode of nausea and vomiting following consumption of breakfast this morning. Since then he feels well and had no prior similar issues. He denies abdominal pain, fever/chills, weight loss, rectal bleeding, or change in bowel habits. He endorses constipation without significant bowel movement in past 3 days. No prior endoscopic evaluation. Review of vitals from today are normal. ESRD on HD DM HTN Anemia, chronic disease Nausea, vomiting - resolved - Advance diet slowly as tolerated, maintain upright position during meal consumption - Anti-emetic therapy PRN - H/H stable, continue to monitor - Maintain bowel regimen to prevent constipation - Follow up neurology recommendations given recent syncope - No current planned GI intervention, patient would benefit from elective outpatient EGD/colonoscopy for evaluation of anemia and screening purposes. Will continue to monitor patient clinical course.
[2017-11-05 13:26] LABS: BASO # 0.1 K/uL (0.0-0.2); BASO % 0.8 % (0.0-2.0); EOS # 0.2 K/uL (0.0-0.7); EOS % 2.7 % (0.0-4.0); HEMOGLOBIN 11.6 g/dL (12.0-18.0); LYMPH # 1.9 K/uL (1.0-4.3); LYMPH % 20.7 % (20.0-40.0); MEAN CORPUSCULAR HEMOGLOBIN 28.8 pg (27.0-31.0); MEAN CORPUSCULAR HGB CONC 35.1 g/dL (33.0-37.0); MEAN PLATELET VOLUME 9.3 fL (7.2-11.7); MONO # 0.7 K/uL (0.0-0.8); MONO % 7.9 % (0.0-10.0); NEUT # 6.3 K/uL (1.8-7.0); NEUT % 67.9 % (50.0-75.0); NRBC % 0.1 % (0.0-2.0); RBC 4.03 Mil/uL (4.40-5.90); RED CELL DISTRIBUTION WIDTH 15.9 % (11.5-14.5); WHITE BLOOD COUNT 9.3 K/uL (4.8-10.8)
[2017-11-05] MEDS: (Lantus) Insulin Glargine, Recombinant SC SCH (21:19)
--- NOTE | 2017-11-05 22:00 | PN ---
DATE: 11/05/2017 SUBJECTIVE: The patient did develop nausea, abdominal pain, and vomiting this morning, was getting p.o. After he completed his hemodialysis, he was placed back on clear liquid diet. He denies any chest pain. PHYSICAL EXAMINATION: VITAL SIGNS: Blood pressure 104/68, heart rate 65, temperature 98.4, respirations 20. HEENT: Normocephalic. CHEST: Clear. HEART: S1 and S2, regular. EXTREMITIES: 1+ pitting edema. LABORATORY DATA: Today's hemoglobin and hematocrit, 11.6 and 33.1; white count and platelet count are within normal limits. Today's blood sugars are 319, 210, 121, and 174 respectively. ASSESSMENT: 1. Status post fall. 2. Coronary artery disease, status post coronary artery bypass surgery. 3. End-stage renal disease, on hemodialysis. 4. Uncontrolled diabetes mellitus. 5. Nausea and vomiting. RECOMMENDATIONS: Continue Crestor 10 mg once a day. Lovenox is on hold. Protonix at 40 mg orally daily was started today. Obtain serum lipase level. Alex Lowe MD
--- NOTE | 2017-11-06 07:30 | CP.PCM.PN ---
<Eleuterio Negro - Last Filed: 11/06/17 08:14> Subjective - Date & Time of Evaluation Date of Evaluation: 11/06/17 Time of Evaluation: 06:50 - Subjective Subjective: PGY5 GI Fellow Progress Note Patient seen and examined bedside this morning. Patient sleeping comfortably on arrival at bedside. States he ate lunch/dinner yesterday without any nausea, vomiting or abdominal pain. No symptoms at present and no new complaints. 12 system ROS performed and negative except where stated. Objective - Vital Signs/Intake and Output Vital Signs (last 24 hours): Temp Pulse Resp BP Pulse Ox 98.5 F 62 20 144/72 97 11/05/17 23:45 11/05/17 23:45 11/05/17 23:45 11/05/17 23:45 11/05/17 23:45 Intake and Output: 11/06/17 11/06/17 06:59 18:59 Intake Total 960 Balance 960 - Medications Medications: Current Medications Acetaminophen (Tylenol 325mg Tab) 650 mg PO Q6H PRN PRN Reason: MILD PAIN Amlodipine Besylate (Norvasc) 10 mg PO DAILY [facility] Last Admin: 11/05/17 11:00 Dose: Not Given Aspirin (Aspirin Chewable) 81 mg PO DAILY [facility] Last Admin: 11/05/17 09:22 Dose: Not Given Calcium Acetate (Phoslo) 1,334 mg PO ACTID [facility] Last Admin: 11/05/17 17:45 Dose: 1,334 mg Enoxaparin Sodium (Lovenox) 30 mg SC DAILY [facility] Last Admin: 11/05/17 09:30 Dose: Not Given Glimepiride (Amaryl) 4 mg PO DAILY [facility] Last Admin: 11/05/17 09:22 Dose: Not Given Insulin Aspart (Novolog) 0 unit SC [facility] PRN Reason: Protocol Last Admin: 11/05/17 21:18 Dose: Not Given Insulin Glargine (Lantus) 30 unit SC HS [facility] Last Admin: 11/05/17 21:19 Dose: 30 units Lamotrigine (Lamictal) 25 mg PO BID [facility] Last Admin: 11/05/17 17:45 Dose: 25 mg Losartan Potassium (Cozaar) 100 mg PO DAILY [facility] Last Admin: 11/05/17 11:00 Dose: Not Given Pantoprazole Sodium (Protonix Ec Tab) 40 mg PO DAILY [facility] Last Admin: 11/05/17 09:25 Dose: 40 mg Rosuvastatin Calcium (Crestor) 10 mg PO HS [facility] Last Admin: 11/05/17 21:19 Dose: 10 mg Tamsulosin HCl (Flomax) 0.4 mg PO DAILY [facility] Last Admin: 11/05/17 09:25 Dose: 0.4 mg Vitamin B Complex/Vit C/Folic Acid (Nephro-Poly) 1 tab PO 0800 [facility] Last Admin: 11/05/17 08:25 Dose: 1 tab - Labs Labs: 11/05/17 13:05 11/02/17 08:25 PT 11.6 SECONDS (9.7-12.2) 10/31/17 16:29 INR 1.0 10/31/17 16:29 APTT 27 SECONDS (21-34) 10/31/17 16:29 - Constitutional Appears: Non-toxic, No Acute Distress - Eye Exam Eye Exam: EOMI, PERRL - ENT Exam ENT Exam: Mucous Membranes Moist - Respiratory Exam Respiratory Exam: Clear to Ausculation Bilateral. absent: Rales, Rhonchi, Wheezes - Cardiovascular Exam Cardiovascular Exam: RRR, +S1, +S2 - GI/Abdominal Exam GI & Abdominal Exam: Soft, Normal Bowel Sounds. absent: Distended, Firm, Guarding, Rigid, Tenderness, Organomegaly - Extremities Exam Extremities Exam: Normal Inspection. absent: Pedal Edema - Neurological Exam Neurological Exam: Alert, Awake, Oriented x3 - Psychiatric Exam Psychiatric exam: Normal Affect, Normal Mood - Skin Skin Exam: Dry, Warm Assessment and Plan - Assessment and Plan (Free Text) Assessment: Patient is a 77yo male with PMHx significant for ESRD on HD, uncontrolled DM, HTN, anemia who was brought to the ED after being found on the ground at his home. Our service was consulted for nausea/vomiting. -Episode of nausea with regurgitation -Anemia -Constipation -ESRD on HD MWF -DM -HTN Plan: -No evidence of nausea and vomiting since one episode yesterday morning -Patient denies any symptoms at this time -Recommend advancing to renal diet -Please reconsult if any concern or recurrence of symptoms <Migue Tillman - Last Filed: 11/06/17 12:38> Objective - Vital Signs/Intake and Output Vital Signs (last 24 hours): Temp Pulse Resp BP Pulse Ox 97.4 F L 60 20 160/62 H 98 11/06/17 07:25 11/06/17 07:25 11/06/17 07:25 11/06/17 07:25 11/06/17 07:25 Intake and Output: 11/06/17 11/06/17 06:59 18:59 Intake Total 960 Balance 960 - Medications Medications: Current Medications Acetaminophen (Tylenol 325mg Tab) 650 mg PO Q6H PRN PRN Reason: MILD PAIN Amlodipine Besylate (Norvasc) 10 mg PO DAILY [facility] Last Admin: 11/06/17 09:21 Dose: 10 mg Aspirin (Aspirin Chewable) 81 mg PO DAILY [facility] Last Admin: 11/06/17 09:21 Dose: 81 mg Calcium Acetate (Phoslo) 1,334 mg PO ACTID [facility] Last Admin: 11/06/17 08:45 Dose: 1,334 mg Enoxaparin Sodium (Lovenox) 30 mg SC DAILY [facility] Last Admin: 11/06/17 09:21 Dose: 30 mg Glimepiride (Amaryl) 4 mg PO DAILY [facility] Last Admin: 11/06/17 09:21 Dose: 4 mg Insulin Aspart (Novolog) 0 unit SC [facility] PRN Reason: Protocol Last Admin: 11/06/17 08:50 Dose: Not Given Insulin Glargine (Lantus) 30 unit SC [facility] Last Admin: 11/05/17 21:19 Dose: 30 units Lamotrigine (Lamictal) 25 mg PO BID [facility] Last Admin: 11/06/17 09:21 Dose: 25 mg Losartan Potassium (Cozaar) 100 mg PO DAILY [facility] Last Admin: 11/06/17 09:21 Dose: 100 mg Pantoprazole Sodium (Protonix Ec Tab) 40 mg PO DAILY [facility] Last Admin: 11/06/17 09:21 Dose: 40 mg Rosuvastatin Calcium (Crestor) 10 mg PO HS [facility] Last Admin: 11/05/17 21:19 Dose: 10 mg Tamsulosin HCl (Flomax) 0.4 mg PO DAILY [facility] Last Admin: 11/06/17 09:21 Dose: 0.4 mg Vitamin B Complex/Vit C/Folic Acid (Nephro-Poly) 1 tab PO 0800 [facility] Last Admin: 11/06/17 08:45 Dose: 1 tab - Labs Labs: 11/05/17 13:05 11/02/17 08:25 PT 11.6 SECONDS (9.7-12.2) 10/31/17 16:29 INR 1.0 10/31/17 16:29 APTT 27 SECONDS (21-34) 10/31/17 16:29 Attending/Attestation - Attestation I have personally seen and examined this patient.: Yes I have fully participated in the care of the patient.: Yes I have reviewed all pertinent clinical information, including history, physical exam and plan: Yes Notes (Text): 11/06/17 12:35 I have seen and examined patient with GI fellow. No acute events overnight, he is seen sitting at bedside and appears comfortable. 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 He denies abdominal pain, fever /chills. Tolerating PO diet without difficulty. ESRD on HD DM HTN Anemia Syncope Nausea, vomiting - resolved - Advance diet as tolerated - Anti-emetic therapy PRN - Follow up neurology recommendations - Patient would benefit from elective outpatient EGD/colonoscopy for anemia workup and screening purposes. Office contact information provided to patient. - No further planned GI interventions, will sign off case. Please reconsult as necessary, thank you.
[2017-11-06] MEDS: Multivitamin Vitamin B Complex (Nephro-Vite) Tab PO SCH (08:45)
[2017-11-06] MEDS: (Novolog) Insulin Aspart, Recombinant 100 u/ml 10 ml vial SC SCH ×4 (08:50→21:44)
[2017-11-06] MEDS: Enoxaparin 30 mg Syringe SC SCH (09:21)
[2017-11-06] MEDS: Pantoprazole 40 mg EC Tab PO SCH (09:21)
--- NOTE | 2017-11-06 11:36 | CP.PCM.PN ---
Subjective - Date & Time of Evaluation Date of Evaluation: 11/06/17 Time of Evaluation: 10:20 - Subjective Subjective: clinically same Objective - Vital Signs/Intake and Output Vital Signs (last 24 hours): Temp Pulse Resp BP Pulse Ox 97.4 F L 60 20 160/62 H 98 11/06/17 07:25 11/06/17 07:25 11/06/17 07:25 11/06/17 07:25 11/06/17 07:25 Intake and Output: 11/06/17 11/06/17 06:59 18:59 Intake Total 960 Balance 960 - Medications Medications: Current Medications Acetaminophen (Tylenol 325mg Tab) 650 mg PO Q6H PRN PRN Reason: MILD PAIN Amlodipine Besylate (Norvasc) 10 mg PO DAILY [facility] Last Admin: 11/06/17 09:21 Dose: 10 mg Aspirin (Aspirin Chewable) 81 mg PO DAILY [facility] Last Admin: 11/06/17 09:21 Dose: 81 mg Calcium Acetate (Phoslo) 1,334 mg PO ACTID [facility] Last Admin: 11/06/17 08:45 Dose: 1,334 mg Enoxaparin Sodium (Lovenox) 30 mg SC DAILY [facility] Last Admin: 11/06/17 09:21 Dose: 30 mg Glimepiride (Amaryl) 4 mg PO DAILY [facility] Last Admin: 11/06/17 09:21 Dose: 4 mg Insulin Aspart (Novolog) 0 unit SC [facility] PRN Reason: Protocol Last Admin: 11/06/17 08:50 Dose: Not Given Insulin Glargine (Lantus) 30 unit SC [facility] Last Admin: 11/05/17 21:19 Dose: 30 units Lamotrigine (Lamictal) 25 mg PO BID [facility] Last Admin: 11/06/17 09:21 Dose: 25 mg Losartan Potassium (Cozaar) 100 mg PO DAILY [facility] Last Admin: 11/06/17 09:21 Dose: 100 mg Pantoprazole Sodium (Protonix Ec Tab) 40 mg PO DAILY [facility] Last Admin: 11/06/17 09:21 Dose: 40 mg Rosuvastatin Calcium (Crestor) 10 mg PO HS [facility] Last Admin: 11/05/17 21:19 Dose: 10 mg Tamsulosin HCl (Flomax) 0.4 mg PO DAILY [facility] Last Admin: 11/06/17 09:21 Dose: 0.4 mg Vitamin B Complex/Vit C/Folic Acid (Nephro-Poly) 1 tab PO 0800 [facility] Last Admin: 11/06/17 08:45 Dose: 1 tab - Labs Labs: 11/05/17 13:05 11/02/17 08:25 PT 11.6 SECONDS (9.7-12.2) 10/31/17 16:29 INR 1.0 10/31/17 16:29 APTT 27 SECONDS (21-34) 10/31/17 16:29 - Constitutional Appears: Well - Head Exam Head Exam: ATRAUMATIC, NORMAL INSPECTION, NORMOCEPHALIC - Eye Exam Eye Exam: EOMI, Normal appearance, PERRL Pupil Exam: NORMAL ACCOMODATION, PERRL - ENT Exam ENT Exam: Mucous Membranes Moist, Normal Exam - Neck Exam Neck Exam: Full ROM, Normal Inspection. absent: Lymphadenopathy - Respiratory Exam Respiratory Exam: Decreased Breath Sounds - Cardiovascular Exam Cardiovascular Exam: REGULAR RHYTHM, +S1, +S2 - GI/Abdominal Exam GI & Abdominal Exam: Soft, Diminished Bowel Sounds - Rectal Exam Rectal Exam: Deferred
--- NOTE | 2017-11-06 13:19 | CP.PCM.PN ---
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 Continue with Nephrovite 1 tab/day. PRBC as needed for anemia. Not on LESLI with HD as last Hb 11.6 Continue with phos binders home dose BP control with meds as ordered. Patient on RAAS ish as losartan Glycemic control, Dialysis consistent diet Further work up/management as per primary team Dose meds/antibiotics (if needed) for ESRD status. Avoid fleets enema/magnesium based laxatives. appreciate neuro input SW/CM consult for d/c planning for placement in SNF Thanks for allowing me to participate in care of your patient. Will follow patient with you. Please call if any Qs. d/w team and family bedside Dr Edwardo Valenzuela Office: [phone] HPI: Pt is a 77 m with hx of ESRD on hemodialysis (MWF) via avf , last dialysis Friday, chronic anemia, hyperphosphatemia, secondary hyperparathyroidism, Diabetes Mellitus, hypertension presented with complaints of Fall at home. Renal consult requested for ESRD management. ROS: Cardiovascular: No chest pain. Pulmonary: No shortness of breath Gastrointestinal: denies abdominal pain No nausea. No vomiting now. Genitourinary: No pain while urinating. Denies blood in urine. All other negative except as mentioned in HPI Physical Examination: General Appearance: Comfortable, in no acute respiratory distress, co-operative . Vitals reviewed and noted as below Head; Atraumatic, normocephalic ENT: no ulcers no thrush. Tongue is midline. Oropharynx: no rash or ulcers. EYES: Pupils are equal, round and reactive to light accommodation. Eye muscles and extraocular movement intact. Sclera is anicteric. Neck; supple no lymphadenopathy, no thyromegaly or bruit Lungs: Normal respiratory rate/effort. Breath sounds bilateral equal and clear Heart: Normal rate. s1s2 normal. No rub or gallop. Extremities: no edema. No varicose veins Neurological: Patient is alert, awake and oriented to person, place and time. No focal deficit. Strength bilateral appropriate and equal Skin: Warm and dry. Normal turgor. No rash. Palpitation: Normal elasticity for age Abdomen: Abdomen is soft. Bowel sounds +. There is no abdominal tenderness, no guarding/rigidity or organomegaly Psych: normal insight and normal affect/mood MSK: no joint tenderness or swelling. Digits and nails normal, no deformity : kidney or bladder not palpable Access: AVF Labs/imaging reviewed. Past medical history, past surgical history, family history, social history, allergy reviewed and noted as below Family Hx: no hx of CKD. Non contributory Objective - Vital Signs/Intake and Output Vital Signs (last 24 hours): Temp Pulse Resp BP Pulse Ox 97.4 F L 72 20 160/62 H 98 11/06/17 07:25 11/06/17 12:00 11/06/17 07:25 11/06/17 07:25 11/06/17 07:25 Intake and Output: 11/06/17 11/06/17 06:59 18:59 Intake Total 960 Balance 960 - Medications Medications: Current Medications Acetaminophen (Tylenol 325mg Tab) 650 mg PO Q6H PRN PRN Reason: MILD PAIN Amlodipine Besylate (Norvasc) 10 mg PO DAILY [facility] Last Admin: 11/06/17 09:21 Dose: 10 mg Aspirin (Aspirin Chewable) 81 mg PO DAILY [facility] Last Admin: 11/06/17 09:21 Dose: 81 mg Calcium Acetate (Phoslo) 1,334 mg PO ACTID [facility] Last Admin: 11/06/17 12:51 Dose: 1,334 mg Enoxaparin Sodium (Lovenox) 30 mg SC DAILY [facility] Last Admin: 11/06/17 09:21 Dose: 30 mg Glimepiride (Amaryl) 4 mg PO DAILY [facility] Last Admin: 11/06/17 09:21 Dose: 4 mg Insulin Aspart (Novolog) 0 unit SC ACHS [facility] PRN Reason: Protocol Last Admin: 11/06/17 12:51 Dose: 5 unit Insulin Glargine (Lantus) 30 unit SC HS [facility] Last Admin: 11/05/17 21:19 Dose: 30 units Lamotrigine (Lamictal) 25 mg PO BID [facility] Last Admin: 11/06/17 09:21 Dose: 25 mg Losartan Potassium (Cozaar) 100 mg PO DAILY [facility] Last Admin: 11/06/17 09:21 Dose: 100 mg Pantoprazole Sodium (Protonix Ec Tab) 40 mg PO DAILY [facility] Last Admin: 11/06/17 09:21 Dose: 40 mg Rosuvastatin Calcium (Crestor) 10 mg PO HS [facility] Last Admin: 11/05/17 21:19 Dose: 10 mg Tamsulosin HCl (Flomax) 0.4 mg PO DAILY [facility] Last Admin: 11/06/17 09:21 Dose: 0.4 mg Vitamin B Complex/Vit C/Folic Acid (Nephro-Poly) 1 tab PO 0800 [facility] Last Admin: 11/06/17 08:45 Dose: 1 tab - Labs Labs: 11/05/17 13:05 11/02/17 08:25 PT 11.6 SECONDS (9.7-12.2) 10/31/17 16:29 INR 1.0 10/31/17 16:29 APTT 27 SECONDS (21-34) 10/31/17 16:29
--- NOTE | 2017-11-06 19:07 | PN ---
DATE: SUBJECTIVE: The patient's abdominal pain, nausea, and vomiting has improved. He denies chest discomfort, headache, or dizziness. PHYSICAL EXAMINATION: VITAL SIGNS: Blood pressure 160/62, heart rate 60, temperature 97.4, respirations 20. HEENT: Normocephalic. CHEST: Clear. HEART: S1 and S2 regular. ABDOMEN: Soft. EXTREMITIES: Trace leg edema. LABORATORY DATA: Today's blood sugar is 358. ASSESSMENT: 1. Status post fall. 2. Coronary artery disease, status post coronary artery bypass surgery. 3. Cervical spondylopathy. 4. End-stage renal disease, on hemodialysis. 5. Hypertension. 6. Diabetes mellitus. RECOMMENDATIONS: 1. Continue current Amaryl 4 mg once a day. 2. Aspirin 81 mg once a day. 3. Cozaar 100 mg once a day. 4. Crestor 10 mg once a day. 5. Lamictal 25 mg twice a day. 6. Lovenox 30 mg subcutaneously once a day. 7. Norvasc 10 mg once a day. 8. The patient is scheduled to have his hemodialysis tomorrow. No further cardiac workup is indicated. Alex Lowe MD
[2017-11-06] MEDS: (Lantus) Insulin Glargine, Recombinant SC SCH (21:54)
[2017-11-07 07:56] LABS: BASO # 0.1 K/uL (0.0-0.2); BASO % 1.1 % (0.0-2.0); EOS # 0.3 K/uL (0.0-0.7); EOS % 3.6 % (0.0-4.0); HEMOGLOBIN 10.7 g/dL (12.0-18.0); LYMPH # 2.2 K/uL (1.0-4.3); LYMPH % 26.9 % (20.0-40.0); MEAN CELL VOLUME 81.8 fL (80.0-94.0); MEAN CORPUSCULAR HEMOGLOBIN 28.8 pg (27.0-31.0); MEAN CORPUSCULAR HGB CONC 35.2 g/dL (33.0-37.0); MEAN PLATELET VOLUME 9.4 fL (7.2-11.7); MONO # 0.7 K/uL (0.0-0.8); MONO % 8.3 % (0.0-10.0); NEUT % 60.1 % (50.0-75.0); RBC 3.72 Mil/uL (4.40-5.90); RED CELL DISTRIBUTION WIDTH 15.5 % (11.5-14.5); WHITE BLOOD COUNT 8.3 K/uL (4.8-10.8)
[2017-11-07] MEDS: (Novolog) Insulin Aspart, Recombinant 100 u/ml 10 ml vial SC SCH ×4 (08:11→21:52)
[2017-11-07] MEDS: Multivitamin Vitamin B Complex (Nephro-Vite) Tab PO SCH (08:11)
[2017-11-07] MEDS: Pantoprazole 40 mg EC Tab PO SCH (09:40)
[2017-11-07] MEDS: Enoxaparin 30 mg Syringe SC SCH (09:40)
--- NOTE | 2017-11-07 15:37 | CP.PCM.PN ---
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 Continue with Nephrovite 1 tab/day. PRBC as needed for anemia. Not on LESLI with HD as last Hb 10.7 Continue with phos binders home dose BP control with meds as ordered. Patient on RAAS ish as losartan Glycemic control, Dialysis consistent diet Further work up/management as per primary team Dose meds/antibiotics (if needed) for ESRD status. Avoid fleets enema/magnesium based laxatives. appreciate neuro input SW/CM consult for d/c planning for placement in SNF Thanks for allowing me to participate in care of your patient. Will follow patient with you. Please call if any Qs. d/w team Dr Edwardo Valenzuela Office: [phone] HPI: Pt is a 77 m with hx of ESRD on hemodialysis (MWF) via avf , last dialysis Friday, chronic anemia, hyperphosphatemia, secondary hyperparathyroidism, Diabetes Mellitus, hypertension presented with complaints of Fall at home. Renal consult requested for ESRD management. ROS: Cardiovascular: No chest pain. Pulmonary: No shortness of breath Gastrointestinal: denies abdominal pain No nausea. No vomiting now. Genitourinary: No pain while urinating. Denies blood in urine. All other negative except as mentioned in HPI Physical Examination: seen on HD General Appearance: Comfortable, in no acute respiratory distress, co-operative . Vitals reviewed and noted as below Head; Atraumatic, normocephalic ENT: no ulcers no thrush. Tongue is midline. Oropharynx: no rash or ulcers. EYES: Pupils are equal, round and reactive to light accommodation. Eye muscles and extraocular movement intact. Sclera is anicteric. Neck; supple no lymphadenopathy, no thyromegaly or bruit Lungs: Normal respiratory rate/effort. Breath sounds bilateral equal and clear Heart: Normal rate. s1s2 normal. No rub or gallop. Extremities: no edema. No varicose veins Neurological: Patient is alert, awake and oriented to person, place and time. No focal deficit. Strength bilateral appropriate and equal Skin: Warm and dry. Normal turgor. No rash. Palpitation: Normal elasticity for age Abdomen: Abdomen is soft. Bowel sounds +. There is no abdominal tenderness, no guarding/rigidity or organomegaly Psych: normal insight and normal affect/mood MSK: no joint tenderness or swelling. Digits and nails normal, no deformity : kidney or bladder not palpable Access: AVF Labs/imaging reviewed. Past medical history, past surgical history, family history, social history, allergy reviewed and noted as below Family Hx: no hx of CKD. Non contributory Objective - Vital Signs/Intake and Output Vital Signs (last 24 hours): Temp Pulse Resp BP Pulse Ox 97.9 F 62 16 136/58 L 97 11/07/17 14:40 11/07/17 14:40 11/07/17 14:40 11/07/17 15:01 11/07/17 14:40 Intake and Output: 11/07/17 11/07/17 06:59 18:59 Intake Total 120 Output Total 400 Balance -280 - Medications Medications: Current Medications Acetaminophen (Tylenol 325mg Tab) 650 mg PO Q6H PRN PRN Reason: MILD PAIN Amlodipine Besylate (Norvasc) 10 mg PO DAILY [facility] Last Admin: 11/07/17 09:40 Dose: 10 mg Aspirin (Aspirin Chewable) 81 mg PO DAILY [facility] Last Admin: 11/07/17 09:40 Dose: 81 mg Calcium Acetate (Phoslo) 1,334 mg PO ACTID [facility] Last Admin: 11/07/17 11:34 Dose: 1,334 mg Enoxaparin Sodium (Lovenox) 30 mg SC DAILY [facility] Last Admin: 11/07/17 09:40 Dose: 30 mg Glimepiride (Amaryl) 4 mg PO DAILY [facility] Last Admin: 11/07/17 09:40 Dose: 4 mg Insulin Aspart (Novolog) 0 unit SC ACHS [facility] PRN Reason: Protocol Last Admin: 11/07/17 11:34 Dose: 3 unit Insulin Glargine (Lantus) 30 unit SC HS [facility] Last Admin: 11/06/17 21:54 Dose: 30 units Lamotrigine (Lamictal) 25 mg PO BID [facility] Last Admin: 11/07/17 09:40 Dose: 25 mg Losartan Potassium (Cozaar) 100 mg PO DAILY [facility] Last Admin: 11/07/17 09:40 Dose: 100 mg Pantoprazole Sodium (Protonix Ec Tab) 40 mg PO DAILY [facility] Last Admin: 11/07/17 09:40 Dose: 40 mg Rosuvastatin Calcium (Crestor) 10 mg PO [facility] Last Admin: 11/06/17 21:54 Dose: 10 mg Tamsulosin HCl (Flomax) 0.4 mg PO DAILY [facility] Last Admin: 11/07/17 09:40 Dose: 0.4 mg Vitamin B Complex/Vit C/Folic Acid (Nephro-Poly) 1 tab PO 0800 [facility] Last Admin: 11/07/17 08:11 Dose: 1 tab - Labs Labs: 11/07/17 07:46 11/02/17 08:25 PT 11.6 SECONDS (9.7-12.2) 10/31/17 16:29 INR 1.0 10/31/17 16:29 APTT 27 SECONDS (21-34) 10/31/17 16:29
--- NOTE | 2017-11-07 17:40 | CP.PCM.PN ---
Subjective - Date & Time of Evaluation Date of Evaluation: 11/07/17 Time of Evaluation: 11:25 - Subjective Subjective: [employer] NOTES Patient seen today, denies any abdominal pain, N/V/D , tolerating diet for HD today Objective - Vital Signs/Intake and Output Vital Signs (last 24 hours): Temp Pulse Resp BP Pulse Ox 97.9 F 62 16 128/54 L 97 11/07/17 14:40 11/07/17 14:40 11/07/17 14:40 11/07/17 17:05 11/07/17 14:40 Intake and Output: 11/07/17 11/07/17 06:59 18:59 Intake Total 120 Output Total 400 Balance -280 - Medications Medications: Current Medications Acetaminophen (Tylenol 325mg Tab) 650 mg PO Q6H PRN PRN Reason: MILD PAIN Amlodipine Besylate (Norvasc) 10 mg PO DAILY [facility] Last Admin: 11/07/17 09:40 Dose: 10 mg Aspirin (Aspirin Chewable) 81 mg PO DAILY [facility] Last Admin: 11/07/17 09:40 Dose: 81 mg Calcium Acetate (Phoslo) 1,334 mg PO ACTID [facility] Last Admin: 11/07/17 11:34 Dose: 1,334 mg Enoxaparin Sodium (Lovenox) 30 mg SC DAILY [facility] Last Admin: 11/07/17 09:40 Dose: 30 mg Glimepiride (Amaryl) 4 mg PO DAILY [facility] Last Admin: 11/07/17 09:40 Dose: 4 mg Insulin Aspart (Novolog) 0 unit SC [facility] PRN Reason: Protocol Last Admin: 11/07/17 11:34 Dose: 3 unit Insulin Glargine (Lantus) 30 unit SC [facility] Last Admin: 11/06/17 21:54 Dose: 30 units Lamotrigine (Lamictal) 25 mg PO BID [facility] Last Admin: 11/07/17 09:40 Dose: 25 mg Losartan Potassium (Cozaar) 100 mg PO DAILY [facility] Last Admin: 11/07/17 09:40 Dose: 100 mg Pantoprazole Sodium (Protonix Ec Tab) 40 mg PO DAILY [facility] Last Admin: 11/07/17 09:40 Dose: 40 mg Rosuvastatin Calcium (Crestor) 10 mg PO [facility] Last Admin: 11/06/17 21:54 Dose: 10 mg Tamsulosin HCl (Flomax) 0.4 mg PO DAILY [facility] Last Admin: 11/07/17 09:40 Dose: 0.4 mg Vitamin B Complex/Vit C/Folic Acid (Nephro-Poly) 1 tab PO 0800 [facility] Last Admin: 11/07/17 08:11 Dose: 1 tab - Labs Labs: 11/07/17 07:46 11/02/17 08:25 PT 11.6 SECONDS (9.7-12.2) 10/31/17 16:29 INR 1.0 10/31/17 16:29 APTT 27 SECONDS (21-34) 10/31/17 16:29 Assessment and Plan - Assessment and Plan (Free Text) Assessment: A/P Patient accepted at [facility] and family in agreement d/W Dr. Fatemeh weaver, stable for discharge to [facility] today after HD and Dr. Fatemeh weaver will follow the patient at [facility]
--- NOTE | 2017-11-07 17:48 | CP.PCM.PN ---
Subjective - Date & Time of Evaluation Date of Evaluation: 11/07/17 Time of Evaluation: 10:00 - Subjective Subjective: clinically same Objective - Vital Signs/Intake and Output Vital Signs (last 24 hours): Temp Pulse Resp BP Pulse Ox 97.9 F 62 16 128/54 L 97 11/07/17 14:40 11/07/17 14:40 11/07/17 14:40 11/07/17 17:05 11/07/17 14:40 Intake and Output: 11/07/17 11/07/17 06:59 18:59 Intake Total 120 Output Total 400 Balance -280 - Medications Medications: Current Medications Acetaminophen (Tylenol 325mg Tab) 650 mg PO Q6H PRN PRN Reason: MILD PAIN Amlodipine Besylate (Norvasc) 10 mg PO DAILY [facility] Last Admin: 11/07/17 09:40 Dose: 10 mg Aspirin (Aspirin Chewable) 81 mg PO DAILY [facility] Last Admin: 11/07/17 09:40 Dose: 81 mg Calcium Acetate (Phoslo) 1,334 mg PO ACTID [facility] Last Admin: 11/07/17 11:34 Dose: 1,334 mg Enoxaparin Sodium (Lovenox) 30 mg SC DAILY [facility] Last Admin: 11/07/17 09:40 Dose: 30 mg Glimepiride (Amaryl) 4 mg PO DAILY [facility] Last Admin: 11/07/17 09:40 Dose: 4 mg Insulin Aspart (Novolog) 0 unit SC [facility] PRN Reason: Protocol Last Admin: 11/07/17 11:34 Dose: 3 unit Insulin Glargine (Lantus) 30 unit SC [facility] Last Admin: 11/06/17 21:54 Dose: 30 units Lamotrigine (Lamictal) 25 mg PO BID [facility] Last Admin: 11/07/17 09:40 Dose: 25 mg Losartan Potassium (Cozaar) 100 mg PO DAILY [facility] Last Admin: 11/07/17 09:40 Dose: 100 mg Pantoprazole Sodium (Protonix Ec Tab) 40 mg PO DAILY [facility] Last Admin: 11/07/17 09:40 Dose: 40 mg Rosuvastatin Calcium (Crestor) 10 mg PO HS [facility] Last Admin: 11/06/17 21:54 Dose: 10 mg Tamsulosin HCl (Flomax) 0.4 mg PO DAILY [facility] Last Admin: 11/07/17 09:40 Dose: 0.4 mg Vitamin B Complex/Vit C/Folic Acid (Nephro-Poly) 1 tab PO 0800 [facility] Last Admin: 11/07/17 08:11 Dose: 1 tab - Labs Labs: 11/07/17 07:46 11/02/17 08:25 PT 11.6 SECONDS (9.7-12.2) 10/31/17 16:29 INR 1.0 10/31/17 16:29 APTT 27 SECONDS (21-34) 10/31/17 16:29 - Constitutional Appears: Well - Head Exam Head Exam: ATRAUMATIC, NORMAL INSPECTION, NORMOCEPHALIC - Eye Exam Eye Exam: EOMI, Normal appearance, PERRL Pupil Exam: NORMAL ACCOMODATION, PERRL - ENT Exam ENT Exam: Mucous Membranes Moist, Normal Exam - Neck Exam Neck Exam: Full ROM, Normal Inspection. absent: Lymphadenopathy - Respiratory Exam Respiratory Exam: Decreased Breath Sounds - Cardiovascular Exam Cardiovascular Exam: REGULAR RHYTHM, +S1, +S2 - GI/Abdominal Exam GI & Abdominal Exam: Soft, Diminished Bowel Sounds - Rectal Exam Rectal Exam: Deferred
--- NOTE | 2017-11-07 18:43 | PN ---
DATE: SUBJECTIVE: The patient denies any headache or dizziness. No retrosternal chest pain. PHYSICAL EXAMINATION VITAL SIGNS: Blood pressure 179/70, heart rate 67, temperature 97.9, respirations 18. HEENT: Pale conjunctivae. CHEST: Diminished breath sounds over the bases. HEART: S1 and S2, regular. ABDOMEN: Soft. EXTREMITIES: Trace leg edema. LABORATORY DATA: Today's hemoglobin and hematocrit 10.7 and 30.4, white count and platelet count are within normal limits. Today's blood sugars are 227, 296 respectively. ASSESSMENT: 1. Coronary artery disease, status post coronary artery bypass surgery. 2. Status post fall. 3. Cervical spondylopathy. 4. Uncontrolled hypertension. 5. Uncontrolled diabetes mellitus. 6. End-stage renal disease, on hemodialysis. RECOMMENDATIONS: Continue aspirin 81 mg once a day, Cozaar 100 mg once a day, Crestor 10 mg once a day, Flomax 0.4 mg once a day, Lovenox at 30 mg once a day, Norvasc at 10 mg once a day. The patient will undergo hemodialysis today and the plan is to transfer the patient to subacute rehab. No invasive cardiac workup is recommended or justified at this time. Alex Lowe MD
[2017-11-07] MEDS: (Lantus) Insulin Glargine, Recombinant SC SCH (21:51)
[2017-11-08] MEDS: Multivitamin Vitamin B Complex (Nephro-Vite) Tab PO SCH (08:05)
[2017-11-08] MEDS: (Novolog) Insulin Aspart, Recombinant 100 u/ml 10 ml vial SC SCH ×3 (08:05→17:13)
[2017-11-08] MEDS: Pantoprazole 40 mg EC Tab PO SCH (09:00)
[2017-11-08] MEDS: Enoxaparin 30 mg Syringe SC SCH (09:01)
[2017-11-08 14:07] LABS: BASO # 0.1 K/uL (0.0-0.2); BASO % 1.1 % (0.0-2.0); EOS # 0.3 K/uL (0.0-0.7); EOS % 3.9 % (0.0-4.0); HEMOGLOBIN 10.6 g/dL (12.0-18.0); LYMPH # 1.6 K/uL (1.0-4.3); LYMPH % 22.4 % (20.0-40.0); MEAN CELL VOLUME 83.2 fL (80.0-94.0); MEAN CORPUSCULAR HGB CONC 34.9 g/dL (33.0-37.0); MEAN PLATELET VOLUME 9.5 fL (7.2-11.7); MONO # 0.6 K/uL (0.0-0.8); MONO % 7.7 % (0.0-10.0); NEUT # 4.7 K/uL (1.8-7.0); NEUT % 64.9 % (50.0-75.0); RBC 3.67 Mil/uL (4.40-5.90); RED CELL DISTRIBUTION WIDTH 16.1 % (11.5-14.5); WHITE BLOOD COUNT 7.2 K/uL (4.8-10.8)
[2017-11-08 14:20] LABS: ALBUMIN 3.2 g/dL (3.5-5.0); CALCIUM 8.2 mg/dl (8.6-10.4)
[2017-11-08 15:43] VITALS: BP 138/67; PULSE 69; RESP 20; TEMP 97.8; O2SAT 97
--- NOTE | 2017-11-08 16:22 | PN ---
DATE: SUBJECTIVE: The patient was not transferred to the rehab yesterday possibly because of difficult hemostasis after the completion of hemodialysis. The patient denies any chest pain or shortness of breath this morning. No dizziness. PHYSICAL EXAMINATION VITAL SIGNS: Blood pressure 128/66, heart rate 72, temperature 97.9, respirations 18. HEENT: Normocephalic. CHEST: Clear. HEART: S1 and S2, regular. EXTREMITIES: Trace leg edema. LABORATORY DATA: Today's blood sugar is 371. ASSESSMENT: 1. Status post fall. 2. Coronary artery disease, status post coronary artery bypass surgery. 3. End-stage renal disease, on hemodialysis. 4. Hypertension. RECOMMENDATIONS: Continue current aspirin, Cozaar, Crestor, Norvasc, PhosLo. The case was discussed with the patient's daughter who was at the bedside. Neither the patient nor the daughter know who is the patient's original diet counselor and the daughter prefers that the patient goes for permanent placement in a long-term as per the patient's request and the family's request in the meantime. No further cardiac workup is indicated at this time. Alex Lowe MD
--- NOTE | 2017-11-08 18:10 | CP.PCM.PN ---
Subjective - Date & Time of Evaluation Date of Evaluation: 11/08/17 Time of Evaluation: 11:00 - Subjective Subjective: clinically same Objective - Vital Signs/Intake and Output Vital Signs (last 24 hours): Temp Pulse Resp BP Pulse Ox 97.8 F 69 20 138/67 97 11/08/17 15:13 11/08/17 15:13 11/08/17 15:13 11/08/17 15:13 11/08/17 15:13 Intake and Output: 11/08/17 11/08/17 06:59 18:59 Intake Total 120 380 Balance 120 380 - Medications Medications: Current Medications Acetaminophen (Tylenol 325mg Tab) 650 mg PO Q6H PRN PRN Reason: MILD PAIN Amlodipine Besylate (Norvasc) 10 mg PO DAILY [facility] Last Admin: 11/08/17 09:00 Dose: 10 mg Aspirin (Aspirin Chewable) 81 mg PO DAILY [facility] Last Admin: 11/08/17 09:01 Dose: Not Given Calcium Acetate (Phoslo) 1,334 mg PO ACTID [facility] Last Admin: 11/08/17 17:13 Dose: 1,334 mg Enoxaparin Sodium (Lovenox) 30 mg SC DAILY [facility] Last Admin: 11/08/17 09:01 Dose: 30 mg Glimepiride (Amaryl) 4 mg PO DAILY [facility] Last Admin: 11/08/17 09:00 Dose: 4 mg Insulin Aspart (Novolog) 0 unit SC [facility] PRN Reason: Protocol Last Admin: 11/08/17 17:13 Dose: 5 unit Insulin Glargine (Lantus) [address] [facility] Last Admin: 11/07/17 21:51 Dose: 30 units Lamotrigine (Lamictal) 25 mg PO BID [facility] Last Admin: 11/08/17 17:13 Dose: 25 mg Losartan Potassium (Cozaar) 100 mg PO DAILY [facility] Last Admin: 11/08/17 09:00 Dose: 100 mg Pantoprazole Sodium (Protonix Ec Tab) 40 mg PO DAILY [facility] Last Admin: 11/08/17 09:00 Dose: 40 mg Rosuvastatin Calcium (Crestor) 10 mg PO HS [facility] Last Admin: 11/07/17 21:51 Dose: 10 mg Tamsulosin HCl (Flomax) 0.4 mg PO DAILY [facility] Last Admin: 11/08/17 09:00 Dose: 0.4 mg Vitamin B Complex/Vit C/Folic Acid (Nephro-Poly) 1 tab PO 0800 [facility] Last Admin: 11/08/17 08:05 Dose: 1 tab - Labs Labs: 11/08/17 13:57 11/08/17 13:57 PT 11.6 SECONDS (9.7-12.2) 10/31/17 16:29 INR 1.0 10/31/17 16:29 APTT 27 SECONDS (21-34) 10/31/17 16:29 - Constitutional Appears: Well - Head Exam Head Exam: ATRAUMATIC, NORMAL INSPECTION, NORMOCEPHALIC - Eye Exam Eye Exam: EOMI, Normal appearance, PERRL Pupil Exam: NORMAL ACCOMODATION, PERRL - ENT Exam ENT Exam: Mucous Membranes Moist, Normal Exam - Neck Exam Neck Exam: Full ROM, Normal Inspection. absent: Lymphadenopathy - Respiratory Exam Respiratory Exam: Decreased Breath Sounds - Cardiovascular Exam Cardiovascular Exam: REGULAR RHYTHM, +S1, +S2 - GI/Abdominal Exam GI & Abdominal Exam: Soft, Diminished Bowel Sounds - Rectal Exam Rectal Exam: Deferred
== END 2017-11-08 18:30 | DRG 312 ==
LOC: C.ER 13:53 → C.9E 20:28 → C.6T 20:28
PROVIDERS: ADMIT Internal Medicine Nephrology; ATTEND Internal Medicine Nephrology
PROC: 5A1D70Z Performance of Urinary Filtration, Intermittent, Less than 6 Hours Per Day (ICD-10-PCS; principal; 2017-11-03)
PROC: 5A1D70Z Performance of Urinary Filtration, Intermittent, Less than 6 Hours Per Day (ICD-10-PCS; 2017-11-05)
PROC: 5A1D70Z Performance of Urinary Filtration, Intermittent, Less than 6 Hours Per Day (ICD-10-PCS; 2017-11-07)
DX: R55 Syncope and collapse (principal); N18.6 End stage renal disease; I13.2 Hypertensive heart and chronic kidney disease with heart failure and with stage 5 chronic kidney disease, or end stage renal disease; M50.00 Cervical disc disorder with myelopathy, unspecified cervical region; N25.81 Secondary hyperparathyroidism of renal origin; Z99.2 Dependence on renal dialysis; W19.XXXA Unspecified fall, initial encounter; F03.90 Unspecified dementia, unspecified severity, without behavioral disturbance, psychotic disturbance, mood disturbance, and anxiety; N40.0 Benign prostatic hyperplasia without lower urinary tract symptoms; J44.9 Chronic obstructive pulmonary disease, unspecified; I50.9 Heart failure, unspecified; I25.10 Atherosclerotic heart disease of native coronary artery without angina pectoris; F31.9 Bipolar disorder, unspecified; E78.00 Pure hypercholesterolemia, unspecified; E10.22 Type 1 diabetes mellitus with diabetic chronic kidney disease; M19.90 Unspecified osteoarthritis, unspecified site; Z95.1 Presence of aortocoronary bypass graft; Z95.4 Presence of other heart-valve replacement; Z87.891 Personal history of nicotine dependence; E10.649 Type 1 diabetes mellitus with hypoglycemia without coma; I44.0 Atrioventricular block, first degree; Y92.009 Unspecified place in unspecified non-institutional (private) residence as the place of occurrence of the external cause; S42.101A Fracture of unspecified part of scapula, right shoulder, initial encounter for closed fracture; E10.65 Type 1 diabetes mellitus with hyperglycemia; K21.9 Gastro-esophageal reflux disease without esophagitis; E10.40 Type 1 diabetes mellitus with diabetic neuropathy, unspecified; Z79.84 Long term (current) use of oral hypoglycemic drugs; Z79.4 Long term (current) use of insulin; E83.39 Other disorders of phosphorus metabolism; D63.8 Anemia in other chronic diseases classified elsewhere; R29.6 Repeated falls; M48.02 Spinal stenosis, cervical region; K59.00 Constipation, unspecified; R00.1 Bradycardia, unspecified; R10.9 Unspecified abdominal pain; R11.2 Nausea with vomiting, unspecified; M48.9 Spondylopathy, unspecified

== ENCOUNTER 2018-06-30 13:27 | Inpatient (IN) | payer MEDICARE ==
[2018-06-30 13:27] VITALS: BMI 28.0
[2018-06-30] MEDS ORDERED: Sodium Chloride 0.9% 1,000 ML IV ONE (15:08)
[2018-06-30] MEDS ORDERED: (Novolin R) Insulin Human Regular 100 units/ml vial IVP STA (15:08)
--- NOTE | 2018-06-30 15:32 | C.PDOC ---
History Of Present Illness 78 y/o male with history of CAD, CABG, DM, ESRD (MWF), HTN presents to ED with c/o right foot infection developed 1 week ago after relations director cut his toenails. Admits to decreased sensation on right foot. When asked about his sugar he states "its always high" , 400-500s. (+) thirst. Notes he is compliant with his chronic medication. Patient states last dialysis was yesterday which he completed with no complications. Patient denies fever, chest pain, sob, abdominal pain, nausea, vomiting or any other complaints at this time. Time Seen by Provider: 06/30/18 14:29 Chief Complaint (Nursing): Lower Extremity Problem/Injury History Per: Patient History/Exam Limitations: no limitations Onset/Duration Of Symptoms: Days Current Symptoms Are (Timing): Still Present Past Medical History Reviewed: Historical Data, Nursing Documentation, Vital Signs Vital Signs: Last Vital Signs Temp 98.7 F 06/30/18 13:46 Pulse 78 06/30/18 13:46 Resp 20 06/30/18 13:46 BP 162/69 H 06/30/18 13:46 Pulse Ox 98 06/30/18 13:46 - Medical History PMH: Arthritis, Benign Prostatic Hyperplasia, Bipolar Disorder, CAD, CHF, COPD, Dementia, Diabetes, HTN, Hypercholesterolemia, Peripheral Edema (no longer), Pneumonia, End Stage Renal Disease (on dialysis M/W/F.), Chronic Kidney Disease Surgical History: CABG (Aortive valve replacement9 Tissue valve ) in 07/2013 at [facility] in [facility]) - [facility] Procedures (10/30/17) CENTRAL VENOUS CATHETER PLACEMENT WITH GUIDANCE (12/12/13) CLOSURE SKIN & SUBCUTANEOUS NEC (01/08/14) CORONAR ARTERIOGR-2 CATH (06/19/13) DIALYSIS ARTERIOVENOSTOM (03/01/15) FLUOROSCOPY OF SUP VENA CAVA USING [facility] CONTRAST, GUIDANCE (05/01/15) INSERT INFUSION DEV IN R EXT JUGULAR VEIN, PERC (05/01/15) INSERTION OF INFUSION DEV INTO SUP VENA CAVA, PERC APPROACH (05/01/15) LOC EXC BONE LESION NEC (10/26/13) PERFORMANCE OF URINARY FILTRATION, MULTIPLE (05/01/15) RT & LT HEART ANGIOCARD (06/19/13) RT/LEFT HEART CARD CATH (06/19/13) ULTRASONOGRAPHY OF RIGHT JUGULAR VEINS, GUIDANCE (05/01/15) VACCINATION NEC (12/12/13) VENOUS CATHETERIZATION NEC (10/26/13) Family History: States: No Known Family Hx - Social History Hx Tobacco Use: Yes Hx Alcohol Use: No Hx Substance Use: No - Immunization History Hx Tetanus Toxoid Vaccination: Yes Hx Influenza Vaccination: Yes Hx Pneumococcal Vaccination: Yes Review Of Systems Constitutional: Negative for: Fever, Chills Cardiovascular: Negative for: Chest Pain Gastrointestinal: Negative for: Nausea, Vomiting Musculoskeletal: Positive for: Foot Pain Skin: Negative for: Rash Physical Exam - Physical Exam Appears: Non-toxic, No Acute Distress, Other (Open wound with necrotic changes at the edges to the distal tip of the right hallux; (+) surorunding erythema, (- ) no discharge ) Skin: Warm, Dry, No Rash Head: Atraumatic, Normacephalic Eye(s): bilateral: Normal Inspection, EOMI Nose: Normal Oral Mucosa: Moist Neck: Supple Chest: Symmetrical Cardiovascular: Rhythm Regular Respiratory: Normal Breath Sounds, No Rales, No Rhonchi, No Wheezing Gastrointestinal/Abdominal: Soft, No Tenderness, No Guarding, No Rebound Extremity: No Pedal Edema, Capillary Refill (<2 seconds), Other (AV shunt on left upper arm, good thrill) Pulses: Left Dorsalis Pedis: Normal, Right Dorsalis Pedis: Normal Neurological/Psych: Oriented x3, Normal Speech, Normal Sensation (decreased to right foot) ED Course And Treatment - Laboratory Results Result Diagrams: 07/02/18 07:06 07/02/18 07:06 O2 Sat by Pulse Oximetry: 98 (RA) Pulse Ox Interpretation: Normal Progress Note: Blood work, Insulin, Right foot xray, UA. D/w podiatry resident will evaluate patient at bedside. Pt was seen and evaluated by Dr Johnson who agreed upon plan and admission. Case discussed with Dr mcfarlane, agreed upon plan and admission. Disposition - Disposition Disposition: HOSPITALIZED Disposition Time: 18:00 Condition: STABLE - Clinical Impression Clinical Impression: Uncontrolled insulin dependent diabetes mellitus, Cellulitis of foot, right - PA / IRRIGATOR GRAVITY FLOW / Resident Statement MD/DO has reviewed & agrees with the documentation as recorded. - Scribe Statement The provider has reviewed the documentation as recorded by the Scribcarmelina Suarez All medical record entries made by the Scribe were at my direction and personally dictated by me. I have reviewed the chart and agree that the record accurately reflects my personal performance of the history, physical exam, medical decision making, and the department course for this patient. I have also personally directed, reviewed, and agree with the discharge instructions and disposition.
[2018-06-30 16:07] LABS: BASO # 0.1 K/uL (0.0-0.2); BASO % 1.3 % (0.0-2.0); EOS # 0.1 K/uL (0.0-0.7); EOS % 1.9 % (0.0-4.0); LYMPH # 1.5 K/uL (1.0-4.3); LYMPH % 20.6 % (20.0-40.0); MEAN CORPUSCULAR HGB CONC 33.9 g/dL (33.0-37.0); MONO # 0.7 K/uL (0.0-0.8); MONO % 10.4 % (0.0-10.0); NEUT # 4.7 K/uL (1.8-7.0); NEUT % 65.8 % (50.0-75.0); RBC 3.78 Mil/uL (4.40-5.90); RED CELL DISTRIBUTION WIDTH 15.5 % (11.5-14.5); WHITE BLOOD COUNT 7.1 K/uL (4.8-10.8)
[2018-06-30 16:16] LABS: MEAN CELL VOLUME 85.8 fL (80.0-94.0)
--- NOTE | 2018-06-30 16:19 | RAD ---
PROCEDURE: Radiographs of the right great toe. TECHNIQUE:: AP radiograph of the right foot, with oblique and lateral view of the right great toe. COMPARISON: None. FINDINGS: BONES: No fracture lytic lesion or periosteal reaction noted. Equivocal subtle lateral great toe distal tuft cortical ill definition along with tiny diffuse subcortical cystic mineralization here. Findings are only mention given the apparent soft tissue defect involving the lateral great toe here. No gas-forming cellulitis appreciated. Continued close follow-up here is recommended. At this time no gross valeri osteomyelitis can be stated. If further evaluation is needed consider MRI JOINTS: 1st metatarsal-phalangeal joint arthrosis SOFT TISSUES: Soft tissue changes lateral great toe no gas-forming cellulitis. Atherosclerotic vascular calcifications present. OTHER FINDINGS: Os peroneum. Calcaneal spurring Hammertoe Orientations and clinodactyly IMPRESSION: No definitive cortical destruction or periosteal reaction appreciated to confirm osteomyelitis. Equivocal subtle trace demineralization of lateral 1st distal tuft. If further evaluation here is needed consider MRI of the right great toe 1st metatarsal-phalangeal joint arthrosis Atherosclerotic vascular calcifications present. Calcaneal spurring Other findings as above.
[2018-06-30] MEDS ORDERED: Sodium Chloride 0.9% 1,000 ML ONE (16:25)
[2018-06-30 16:43] LABS: ALB/GLOB RATIO 1.3 (1.0-2.1); ALBUMIN 4.1 g/dL (3.5-5.0); CALCIUM 8.6 mg/dl (8.6-10.4)
[2018-06-30] MEDS ORDERED: (Novolin R) Insulin Human Regular 100 units/ml vial IVP ONE (16:45)
--- NOTE | 2018-06-30 21:03 | CP.PCM.HP ---
History of Present Illness - History of Present Illness History of Present Illness: 78 yo male was brought to the ED at [facility] complaining of swelling, redness and painful right toes a week after he had his toenails cut. He is known to have an IDDM, a CAD, a s/p CABG and AVR( tissue valve )in 2012, a HPTN, a COPD, a diabetic neuropathy, a BPH, an ESRD on HD, a hypercholesterolemia. He quit cigarette smoking in 2003. Present on Admission - Present on Admission Any Indicators Present on Admission: Yes History of Uncontrolled Diabetes: Yes Review of Systems - Integumentary Integumentary: Wounds Additional comments: Right foot infection. Past Patient History - Infectious Disease Hx of Infectious Diseases: None - Tetanus Immunizations Tetanus Immunization: Unknown - Past Medical History & Family History Past Medical History?: Yes - Past Social History Smoking Status: Former Smoker Alcohol: Occasional Drugs: Denies Home Situation {Lives}: With Family Domestic Violence: Negative - CARDIAC Hx Congestive Heart Failure: Yes Hx Hypercholesterolemia: Yes Hx Hypertension: Yes Hx Peripheral Edema: Yes (no longer) - PULMONARY Hx Chronic Obstructive Pulmonary Disease (COPD): Yes Hx Pneumonia: Yes - NEUROLOGICAL Hx Dementia: Yes - HEENT Hx HEENT Problems: Yes Hx Cataracts: Yes (bilat iol) - RENAL Hx Chronic Kidney Disease: Yes - ENDOCRINE/METABOLIC Hx Diabetes Mellitus Type 1: Yes - HEMATOLOGICAL/ONCOLOGICAL Hx Blood Disorders: No - INTEGUMENTARY Hx Dermatological Problems: Yes (ble with discoloration) - MUSCULOSKELETAL/RHEUMATOLOGICAL Hx Arthritis: Yes - GASTROINTESTINAL Hx Gastrointestinal Disorders: Yes Hx Gastroesophageal Reflux: Yes - GENITOURINARY/GYNECOLOGICAL Hx Genitourinary Disorders: Yes Hx Prostate Problems: Yes Other/Comment: BPH - PSYCHIATRIC Hx Bipolar Disorder: Yes Hx Substance Use: No - SURGICAL HISTORY Hx Coronary Artery Bypass Graft: Yes (Aortive valve replacement9 Tissue valve ) in 07/2013 at [facility] in [facility]) Hx Open Heart Surgery: Yes Hx Valve Replacement: Yes (Tissue valve AVR in 2012) - ANESTHESIA Hx Anesthesia: Yes Hx Anesthesia Reactions: No Hx Malignant Hyperthermia: No Meds Allergies/Adverse Reactions: Allergies Allergy/AdvReac Type Severity Reaction Status Date / Time No Known Allergies Allergy Verified 06/30/18 13:47 Physical Exam - Constitutional Appears: Well, No Acute Distress, Chronically Ill - Head Exam Head Exam: NORMAL INSPECTION - Eye Exam Eye Exam: Normal appearance - ENT Exam ENT Exam: Normal Exam - Neck Exam Neck exam: Positive for: Normal Inspection - Respiratory Exam Respiratory Exam: Clear to Auscultation Bilateral, NORMAL BREATHING PATTERN - Cardiovascular Exam Cardiovascular Exam: REGULAR RHYTHM - GI/Abdominal Exam GI & Abdominal Exam: Normal Bowel Sounds, Soft - Rectal Exam Rectal Exam: Deferred - Extremities Exam Additional comments: Infected right foot. - Back Exam Back exam: NORMAL INSPECTION - Neurological Exam Neurological exam: Alert, Oriented x3 - Psychiatric Exam Psychiatric exam: Anxious - Skin Skin Exam: Erythema Additional comments: Erythema and edema of the right foot. Results - Vital Signs Recent Vital Signs: Last Vital Signs Temp 97.9 F 06/30/18 19:17 Pulse 74 06/30/18 19:17 Resp 18 06/30/18 19:17 BP 159/70 H 06/30/18 19:17 Pulse Ox 98 06/30/18 19:17 - Labs Result Diagrams: 06/30/18 16:03 06/30/18 16:03 Labs: Laboratory Results - last 24 hr 06/30/18 06/30/18 06/30/18 14:54 14:56 16:03 WBC 7.1 RBC 3.78 L Hgb 11.0 L Hct 32.4 L MCV 85.8 D MCH 29.0 MCHC 33.9 RDW 15.5 H Plt Count 157 MPV 9.0 Neut % (Auto) 65.8 Lymph % (Auto) 20.6 [place] % (Auto) 10.4 H Eos % (Auto) 1.9 Baso % (Auto) 1.3 Neut # (Auto) 4.7 Lymph # (Auto) 1.5 [place] # (Auto) 0.7 Eos # (Auto) 0.1 Baso # (Auto) 0.1 Sodium Potassium Chloride Carbon Dioxide Anion Gap BUN Creatinine Est GFR ( Amer) Est GFR (Non-Af Amer) POC Glucose (mg/dL) 454 H* 456 H* Random Glucose Calcium Total Bilirubin AST ALT Alkaline Phosphatase Total Protein Albumin Globulin Albumin/Globulin Ratio B-Hydroxybutyrate 06/30/18 06/30/18 16:03 20:19 WBC RBC Hgb Hct MCV MCH MCHC RDW Plt Count MPV Neut % (Auto) Lymph % (Auto) [place] % (Auto) Eos % (Auto) Baso % (Auto) Neut # (Auto) Lymph # (Auto) [place] # (Auto) Eos # (Auto) Baso # (Auto) Sodium 133 Potassium 5.9 H Chloride 91 L Carbon Dioxide 31 H Anion Gap 17 BUN 55 H Creatinine 6.1 H Est GFR ( Amer) 11 Est GFR (Non-Af Amer) 9 POC Glucose (mg/dL) 301 H Random Glucose 382 H Calcium 8.6 Total Bilirubin 0.7 AST 30 ALT 31 Alkaline Phosphatase 122 Total Protein 7.3 Albumin 4.1 Globulin 3.2 Albumin/Globulin Ratio 1.3 B-Hydroxybutyrate 0.09 Assessment & Plan (1) Cellulitis of foot, right Assessment and Plan: IV antibiotics after cultures. Status: Acute (2) Uncontrolled insulin dependent diabetes mellitus Assessment and Plan: Control DM with Lantus and Novolog insulin. Status: Acute (3) Chronic kidney disease with end stage renal failure on dialysis Assessment and Plan: Nephrolgy evaluation. Status: Acute Decision To Admit - Pt Status Changed To: Hospital Disposition Of: Inpatient - Admit Certification Admit to Inpatient:: After my assessment, the patient will require hospitalization for at least two midnights. This is because of the severity of symptoms shown, intensity of services needed, and/or the medical risk in this patient being treated as an outpatient. - InPatient: Physician Admission Certification:: After my assessments, the patient requires hospitalization for at least 2 midnights. - . Bed Request Type: Regular Admitting Physician: Neftali Johnson
[2018-06-30] MEDS: Piperacill/Tazo 2.25gm in Dex 2.25 GM/50 ML BAG IVPB SCH (21:44)
--- NOTE | 2018-06-30 21:56 | CP.PCM.CON ---
History of Present Illness - History of Present Illness History of Present Illness: Podiatry Consult note: Dr. Lewis 78 year old male with PMHx of DM, HTN, HLD, ESRD on dialysis (MWF), CAD s/p CABG, BPH and Bipolar disorder presents to ED complaining of redness, swelling of the right big toe. Patient states that he was seen by his grievance and appeals coordinator a week ago when his nails were cut. Patient states that he noticed a small wound after his nails were debrided. States that since then he has been taking care of it by putting hydrogen peroxide on the toe and dressing it. Dressings are changed by his ex- daily who is present at bedside. Patient denies of any pain to the toe today. Patient's ex- states that his blood sugar levels are always very high and between 400 to 500 daily. Patient denies of taking any medications/abx in the past week. Patient denies of having any recent F/N/V/C/SOB/CP/headache. No other pedal complains at this time. PMHx: DM, HTN, HLD, ESRD on dialysis (MWF), CAD s/p CABG, BPH and Bipolar disorder PSHx: CABG (Aortive valve replacement Tissue valve ) in 07/2013 Allergies: N.K.D.A SHx: Quit smoking in 2003, Denies EtOH or illicit drug usage Review of Systems - Constitutional Constitutional: As Per HPI Past Patient History - Infectious Disease Hx of Infectious Diseases: None - Tetanus Immunizations Tetanus Immunization: Unknown - Past Medical History & Family History Past Medical History?: Yes - Past Social History Smoking Status: Former Smoker Alcohol: Occasional Drugs: Denies Home Situation {Lives}: With Family Domestic Violence: Negative - CARDIAC Hx Congestive Heart Failure: Yes Hx Hypercholesterolemia: Yes Hx Hypertension: Yes Hx Peripheral Edema: Yes (no longer) - PULMONARY Hx Chronic Obstructive Pulmonary Disease (COPD): Yes Hx Pneumonia: Yes - NEUROLOGICAL Hx Dementia: Yes - HEENT Hx HEENT Problems: Yes Hx Cataracts: Yes (bilat iol) - RENAL Hx Chronic Kidney Disease: Yes - ENDOCRINE/METABOLIC Hx Diabetes Mellitus Type 1: Yes - HEMATOLOGICAL/ONCOLOGICAL Hx Blood Disorders: No - INTEGUMENTARY Hx Dermatological Problems: Yes (ble with discoloration) - MUSCULOSKELETAL/RHEUMATOLOGICAL Hx Arthritis: Yes - GASTROINTESTINAL Hx Gastrointestinal Disorders: Yes Hx Gastroesophageal Reflux: Yes - GENITOURINARY/GYNECOLOGICAL Hx Genitourinary Disorders: Yes Hx Prostate Problems: Yes Other/Comment: BPH - PSYCHIATRIC Hx Bipolar Disorder: Yes Hx Substance Use: No - SURGICAL HISTORY Hx Coronary Artery Bypass Graft: Yes (Aortive valve replacement9 Tissue valve ) in 07/2013 at [facility] in [facility]) Hx Open Heart Surgery: Yes Hx Valve Replacement: Yes (Tissue valve AVR in 2012) - ANESTHESIA Hx Anesthesia: Yes Hx Anesthesia Reactions: No Hx Malignant Hyperthermia: No Meds Allergies/Adverse Reactions: Allergies Allergy/AdvReac Type Severity Reaction Status Date / Time No Known Allergies Allergy Verified 06/30/18 13:47 - Medications Medications: Current Medications Acetaminophen (Tylenol 325mg Tab) 650 mg PO Q6H PRN PRN Reason: MILD PAIN Amlodipine Besylate (Norvasc) 10 mg PO DAILY [facility] Aspirin (Aspirin Chewable) 81 mg PO DAILY [facility] Calcium Acetate (Phoslo) 1,334 mg PO ACTID [facility] Docusate Sodium (Colace) 100 mg PO BID [facility] Glimepiride (Amaryl) 4 mg PO DAILY [facility] Heparin Sodium (Porcine) (Heparin) 5,000 units SC Q8 [facility] Piperacillin Sod/Tazobactam Sod (Zosyn 2.25 Gm Iv Premix) 2.25 gm in 50 mls @ 100 mls/hr IVPB Q12H [facility]; Protocol Last Admin: 06/30/18 21:44 Dose: 100 mls/hr Insulin Aspart (Novolog) 0 unit SC ACHS [facility]; Protocol Insulin Glargine (Lantus) 30 unit SC HS [facility] Lamotrigine (Lamictal) 25 mg PO BID [facility] Losartan Potassium (Cozaar) 100 mg PO DAILY [facility] Pantoprazole Sodium (Protonix Ec Tab) 40 mg PO DAILY [facility] Rosuvastatin Calcium (Crestor) 10 mg PO HS [facility] Tamsulosin HCl (Flomax) 0.4 mg PO DAILY [facility] Vitamin B Complex/Vit C/Folic Acid (Nephro-Poly) 1 tab PO 0800 [facility] Physical Exam - Constitutional Appears: Well, Non-toxic, No Acute Distress - Extremities Exam Additional comments: Bilateral LE exam: VASC: DP/PT pulses are palpable 2/4, Cap refill time: < 3 sec to all digits, Temp gradient: warm to cool from proximal to distal, no pitting or non-pitting edema noted to bilateral LE DERM: Superficial epidermal lysis with minimal necrotic changes at the distal tip of the right hallux with circumferential minimal localized erythema, no active drainage, no mal-odor, no purulence, no probe to bone, no tunneling, no tracking, no clinical suspicion active infection at this time NEURO: Protective sensation mildly diminished ORTHO: no pain during palpation or AROM or PROM of the right hallux at the MTPJ, MMT: 5/5 in all 4 direction at the ankle joint. - Neurological Exam Neurological exam: Alert, Oriented x3 - Psychiatric Exam Psychiatric exam: Normal Affect, Normal Mood Results - Vital Signs Recent Vital Signs: Last Vital Signs Temp 97.9 F 06/30/18 19:17 Pulse 74 06/30/18 19:17 Resp 18 06/30/18 19:17 BP 159/70 H 06/30/18 19:17 Pulse Ox 98 06/30/18 19:17 - Labs Result Diagrams: 06/30/18 16:03 06/30/18 16:03 Labs: Laboratory Results - last 24 hr 06/30/18 06/30/18 06/30/18 14:54 14:56 16:03 WBC 7.1 RBC 3.78 L Hgb 11.0 L Hct 32.4 L MCV 85.8 D MCH 29.0 MCHC 33.9 RDW 15.5 H Plt Count 157 MPV 9.0 Neut % (Auto) 65.8 Lymph % (Auto) 20.6 [place] % (Auto) 10.4 H Eos % (Auto) 1.9 Baso % (Auto) 1.3 Neut # (Auto) 4.7 Lymph # (Auto) 1.5 [place] # (Auto) 0.7 Eos # (Auto) 0.1 Baso # (Auto) 0.1 Sodium Potassium Chloride Carbon Dioxide Anion Gap BUN Creatinine Est GFR ( Amer) Est GFR (Non-Af Amer) POC Glucose (mg/dL) 454 H* 456 H* Random Glucose Calcium Total Bilirubin AST ALT Alkaline Phosphatase Total Protein Albumin Globulin Albumin/Globulin Ratio B-Hydroxybutyrate 06/30/18 06/30/18 16:03 20:19 WBC RBC Hgb Hct MCV MCH MCHC RDW Plt Count MPV Neut % (Auto) Lymph % (Auto) [place] % (Auto) Eos % (Auto) Baso % (Auto) Neut # (Auto) Lymph # (Auto) [place] # (Auto) Eos # (Auto) Baso # (Auto) Sodium 133 Potassium 5.9 H Chloride 91 L Carbon Dioxide 31 H Anion Gap 17 BUN 55 H Creatinine 6.1 H Est GFR ( Amer) 11 Est GFR (Non-Af Amer) 9 POC Glucose (mg/dL) 301 H Random Glucose 382 H Calcium 8.6 Total Bilirubin 0.7 AST 30 ALT 31 Alkaline Phosphatase 122 Total Protein 7.3 Albumin 4.1 Globulin 3.2 Albumin/Globulin Ratio 1.3 B-Hydroxybutyrate 0.09 Assessment & Plan - Assessment and Plan (Free Text) Assessment: 78 year old male with PMHx of DM, HTN, HLD, ESRD on dialysis (MWF), CAD s/p CABG, BPH and Bipolar disorder evaluated for right hallux superficial ulcer - non-infected (romo 1) Plan: Patient seen and evaluated Discussed plan with attending Dr. Lewis Labs, vitals and charts reviewed - afebrile, WBC @ 7.1 - Random glucose: 456 mg/dL Right foot x-ray reviewed - No evidence of cortical erosion or periosteal reaction - no evidence of OM; no soft tissue emphysema Wound cleaned with saline and dressed with betadine soaked gauz, DSD Educated patient the importance of controlling the blood glucose levels and diabetic control - Educated to follow up with his PCP soon Rx: Augmentin Rx: Silvadine cream Educated patient and the ex- of daily dressing changes using the cream and to take the abx daily as prescribed Educated patient to follow up in the podiatry clinic on Friday Educated patient to return to ED immediately if the symptoms changes - Educated patient of the constitutional symptoms Patient and the ex- demonstrated verbal understanding of the plan Thank you for the podiatry consult and allowing to take part in patient care - Date & Time Date: 06/30/18 Time: 16:30
[2018-06-30] MEDS: (Novolog) Insulin Aspart, Recombinant 100 u/ml 10 ml vial SC SCH (22:06)
[2018-06-30] MEDS ORDERED: (Novolin R) Insulin Human Regular 100 units/ml vial ONE (22:07)
[2018-06-30] MEDS ORDERED: (Lantus) Insulin Glargine, Recombinant SC ONE (22:40)
[2018-06-30] MEDS: (Lantus) Insulin Glargine, Recombinant SC SCH (23:00)
[2018-07-01] MEDS: (Novolog) Insulin Aspart, Recombinant 100 u/ml 10 ml vial SC SCH ×4 (07:22→21:57)
[2018-07-01] MEDS: Multivitamin Vitamin B Complex (Nephro-Vite) Tab PO SCH (08:00)
[2018-07-01] MEDS: Pantoprazole 40 mg EC Tab PO SCH (10:05)
[2018-07-01] MEDS: Piperacill/Tazo 2.25gm in Dex 2.25 GM/50 ML BAG IVPB SCH ×2 (10:10→22:27)
--- NOTE | 2018-07-01 12:52 | CP.PCM.CON ---
History of Present Illness - History of Present Illness History of Present Illness: 78 year old male presents to ED complaining of redness, swelling of the right big toe. Patient states that he was seen by his lorry weigher a week ago when his nails were cut. Patient states that he noticed a small wound after his nails were debrided. States that since then he has been taking care of it by putting hydrogen peroxide on the toe and dressing it. Was recently noted to have cellulitis / gangrenous changes to right toe- and foot- admitted for IV antibiotic treatment PMHx: DM, HTN, HLD, ESRD on dialysis (MWF), CAD s/p CABG, BPH and Bipolar disorder PSHx: CABG (Aortive valve replacement Tissue valve ) in 07/2013 Allergies: NKA SHx: Quit smoking in 2003, Denies EtOH or illicit drug usage Review of Systems - Review of Systems All systems: reviewed and no additional remarkable complaints except - Constitutional Constitutional: As Per HPI - EENT Eyes: absent: As Per HPI, Blind Spots, Blurred Vision, Change in Vision, Decreased Night Vision, Diplopia, Discharge, Dry Eye, Exophthalmos, Floaters, Irritation, Itchy Eyes, Loss of Peripheral Vision, Pain, Photophobia, Requires Corrective Lenses, Sees Flashes, Spots in Vision, Tunnel Vision, Other Visual Disturbances, Loss of Vision, Other Ears: absent: As Per HPI, Decreased Hearing, Ear Discharge, Ear Pain, Tinnitus, Abnormal Hearing, Disequilibrium, Dizziness, Other Nose/Mouth/Throat: absent: As Per HPI, Epistaxis, Nasal Congestion, Nasal Discharge, Nasal Obstruction, Nasal Trauma, Nose Pain, Post Nasal Drip, Sinus Pain, Sinus Pressure, Bleeding Gums, Change in Voice, Dental Pain, Dry Mouth, Dysphagia, Halitosis, Hoarsness, Lip Swelling, Mouth Lesions, Mouth Pain, Odynophagia, Sore Throat, Throat Swelling, Tongue Swelling, Facial Pain, Neck Pain, Neck Mass, Other - Cardiovascular Cardiovascular: As Per HPI - Respiratory Respiratory: absent: As Per HPI, Cough, Dyspnea, Hemoptysis, Dyspnea on Exertion, Wheezing, Snoring, Stridor, Pain on Inspiration, Chest Congestion, Excessive Mucous Production, Change in Mucous Color, Pain with Coughing, Other - Gastrointestinal Gastrointestinal: absent: As Per HPI, Abdominal Pain, Belching, Bloating, Change in Bowel Habits, Change in Stool Character, Coffee Ground Emesis, Constipation, Cramping, Diarrhea, Dyspepsia, Dysphagia, Early Satiety, Excessive Flatus, Fecal Incontinence, Heartburn, Hematemesis, Hematochezia, Loose Stools, Melena, Nausea, Odynophagia, Temesmus, Vomiting, Other - Genitourinary Genitourinary: absent: As Per HPI, Change in Urinary Stream, Difficulty Urinating, Dysuria, Flank Pain, Hematuria, Pyuria, Nocturia, Urinary Incontinence, Urinary Frequency, Urinary Hesitance, Urinary Urgency, Voiding Freq/Small Amts, Freq UTI, Hx Renal/Bladder Calculi, Hx /Renal Surgery, Bladder Distension, Other - Reproductive: Male Reproductive:Male: As Per HPI - Musculoskeletal Musculoskeletal: As Per HPI - Integumentary Integumentary: As Per HPI, Skin Pain, Wounds - Neurological Neurological: absent: As Per HPI, Abnormal Gait, Abnormal Hearing, Abnormal Movements, Abnormal Speech, Behavioral Changes, Burning Sensations, Confusion, Convulsions, Disequilibrium, Dizziness, Numbness, Focal Weakness, Frequent Falls, Headaches, Lack of Coordination, Loss of Vision, Memory Loss, Paresthe unruly, Radicular Pain, Restless Legs, Sensory Deficit, Syncope, Tingling, Tremor, Vertigo, Weakness, Other Visual Disturbances, Other - Psychiatric Psychiatric: absent: As Per HPI, Abnormal Sleep Pattern, Anhedonia, Anxiety, Auditory Hallucinations, Behavioral Changes, Change in Appetite, Change in Libido, Confusion, Depression, Difficulty Concentrating, Hallucinations, Homicidal Ideation, Hopelessness, Irritability, Memory Loss, Mood Swings, Panic Attacks, Paranoia, Suicidal Ideation, Visual Hallucinations, Tactile Hallucinations, Other - Endocrine Endocrine: As Per HPI - Hematologic/Lymphatic Hematologic: As Per HPI Past Patient History - Infectious Disease Hx of Infectious Diseases: None - Tetanus Immunizations Tetanus Immunization: Unknown - Past Medical History & Family History Past Medical History?: Yes - Past Social History Smoking Status: Former Smoker Alcohol: Occasional Drugs: Denies Home Situation {Lives}: With Family Domestic Violence: Negative - CARDIAC Hx Congestive Heart Failure: Yes Hx Hypercholesterolemia: Yes Hx Hypertension: Yes Hx Peripheral Edema: Yes (no longer) - PULMONARY Hx Chronic Obstructive Pulmonary Disease (COPD): Yes Hx Pneumonia: Yes - NEUROLOGICAL Hx Dementia: Yes - HEENT Hx HEENT Problems: Yes Hx Cataracts: Yes (bilat iol) - RENAL Hx Chronic Kidney Disease: Yes - ENDOCRINE/METABOLIC Hx Diabetes Mellitus Type 1: Yes - HEMATOLOGICAL/ONCOLOGICAL Hx Blood Disorders: No - INTEGUMENTARY Hx Dermatological Problems: Yes (ble with discoloration) - MUSCULOSKELETAL/RHEUMATOLOGICAL Hx Arthritis: Yes - GASTROINTESTINAL Hx Gastrointestinal Disorders: Yes Hx Gastroesophageal Reflux: Yes - GENITOURINARY/GYNECOLOGICAL Hx Genitourinary Disorders: Yes Hx Prostate Problems: Yes Other/Comment: BPH - PSYCHIATRIC Hx Bipolar Disorder: Yes Hx Substance Use: No - SURGICAL HISTORY Hx Coronary Artery Bypass Graft: Yes (Aortive valve replacement9 Tissue valve ) in 07/2013 at [facility] in [facility]) Hx Open Heart Surgery: Yes Hx Valve Replacement: Yes (Tissue valve AVR in 2012) - ANESTHESIA Hx Anesthesia: Yes Hx Anesthesia Reactions: No Hx Malignant Hyperthermia: No Meds Allergies/Adverse Reactions: Allergies Allergy/AdvReac Type Severity Reaction Status Date / Time No Known Allergies Allergy Verified 06/30/18 13:47 - Medications Medications: Current Medications Acetaminophen (Tylenol 325mg Tab) 650 mg PO Q6H PRN PRN Reason: MILD PAIN Amlodipine Besylate (Norvasc) 10 mg PO DAILY [facility] Last Admin: 07/01/18 10:05 Dose: 10 mg Aspirin (Aspirin Chewable) 81 mg PO DAILY [facility] Last Admin: 07/01/18 10:05 Dose: 81 mg Calcium Acetate (Phoslo) 1,334 mg PO ACTID [facility] Last Admin: 07/01/18 08:00 Dose: 1,334 mg Docusate Sodium (Colace) 100 mg PO BID [facility] Last Admin: 07/01/18 10:05 Dose: 100 mg Glimepiride (Amaryl) 4 mg PO DAILY [facility] Last Admin: 07/01/18 10:05 Dose: 4 mg Heparin Sodium (Porcine) (Heparin) 5,000 units SC Q8 [facility] Last Admin: 07/01/18 06:08 Dose: 5,000 units Piperacillin Sod/Tazobactam Sod (Zosyn 2.25 Gm Iv Premix) 2.25 gm in 50 mls @ 100 mls/hr IVPB Q12H [facility]; Protocol Last Admin: 07/01/18 10:10 Dose: 100 mls/hr Insulin Aspart (Novolog) 0 unit SC ACHS [facility]; Protocol Last Admin: 07/01/18 07:22 Dose: Not Given Insulin Glargine (Lantus) 30 unit SC [facility] Last Admin: 06/30/18 23:00 Dose: 30 units Lamotrigine (Lamictal) 25 mg PO BID [facility] Last Admin: 07/01/18 10:05 Dose: 25 mg Losartan Potassium (Cozaar) 100 mg PO DAILY [facility] Last Admin: 07/01/18 10:05 Dose: 100 mg Pantoprazole Sodium (Protonix Ec Tab) 40 mg PO DAILY [facility] Last Admin: 07/01/18 10:05 Dose: 40 mg Rosuvastatin Calcium (Crestor) 10 mg PO HS [facility] Last Admin: 06/30/18 22:59 Dose: 10 mg Tamsulosin HCl (Flomax) 0.4 mg PO DAILY [facility] Last Admin: 07/01/18 10:05 Dose: 0.4 mg Vitamin B Complex/Vit C/Folic Acid (Nephro-Poly) 1 tab PO 0800 [facility] Last Admin: 07/01/18 08:00 Dose: 1 tab Physical Exam - Constitutional Appears: Non-toxic, No Acute Distress, Chronically Ill - Head Exam Head Exam: ATRAUMATIC, NORMAL INSPECTION, NORMOCEPHALIC - Eye Exam Eye Exam: PERRL Pupil Exam: NORMAL ACCOMODATION - ENT Exam ENT Exam: Mucous Membranes Dry - Neck Exam Neck exam: Negative for: Full Rom, Lymphadenopathy, Meningismus, Normal Inspection, Tenderness, Thyromegaly - Respiratory Exam Respiratory Exam: Decreased Breath Sounds. absent: Prolonged Expiratory Phase - Cardiovascular Exam Cardiovascular Exam: REGULAR RHYTHM, +S1, +S2, Systolic Murmur - GI/Abdominal Exam GI & Abdominal Exam: Diminished Bowel Sounds - Rectal Exam Rectal Exam: Deferred - Exam Exam: NORMAL INSPECTION - Extremities Exam Extremities exam: Positive for: pedal edema Additional comments: Bilateral LE exam: VASC: DP/PT pulses are palpable 2/4, Cap refill time: < 3 sec to all digits, Temp gradient: warm to cool from proximal to distal, no pitting or non-pitting edema noted to bilateral LE DERM: Superficial epidermal lysis with minimal necrotic changes at the distal tip of the right hallux with circumferential minimal localized erythema, no active drainage, no mal-odor, no purulence, no probe to bone, no tunneling, no tracking, no clinical suspicion active infection at this time NEURO: Protective sensation mildly diminished ORTHO: no pain during palpation or AROM or PROM of the right hallux at the MTPJ, MMT: 5/5 in all 4 direction at the ankle joint. - Back Exam Back exam: absent: CVA tenderness (L), CVA tenderness (R), FULL ROM, muscle spasm, NORMAL INSPECTION, paraspinal tenderness, rash noted, tenderness, vertebral tenderness - Neurological Exam Neurological exam: Alert, Altered, Oriented x3 - Psychiatric Exam Psychiatric exam: Normal Mood - Skin Skin Exam: Dry Results - Vital Signs Recent Vital Signs: Last Vital Signs Temp 97.5 F L 07/01/18 07:15 Pulse 71 07/01/18 07:15 Resp 18 07/01/18 07:15 BP 167/66 H 07/01/18 07:15 Pulse Ox 99 07/01/18 07:15 - Labs Result Diagrams: 06/30/18 16:03 06/30/18 16:03 Labs: Laboratory Results - last 24 hr 06/30/18 06/30/18 06/30/18 14:54 14:56 16:03 WBC 7.1 RBC 3.78 L Hgb 11.0 L Hct 32.4 L MCV 85.8 D MCH 29.0 MCHC 33.9 RDW 15.5 H Plt Count 157 MPV 9.0 Neut % (Auto) 65.8 Lymph % (Auto) 20.6 [place] % (Auto) 10.4 H Eos % (Auto) 1.9 Baso % (Auto) 1.3 Neut # (Auto) 4.7 Lymph # (Auto) 1.5 [place] # (Auto) 0.7 Eos # (Auto) 0.1 Baso # (Auto) 0.1 Sodium Potassium Chloride Carbon Dioxide Anion Gap BUN Creatinine Est GFR ( Amer) Est GFR (Non-Af Amer) POC Glucose (mg/dL) 454 H* 456 H* Random Glucose Calcium Total Bilirubin AST ALT Alkaline Phosphatase Total Protein Albumin Globulin Albumin/Globulin Ratio B-Hydroxybutyrate 06/30/18 06/30/18 06/30/18 16:03 20:19 21:52 WBC RBC Hgb Hct MCV MCH MCHC RDW Plt Count MPV Neut % (Auto) Lymph % (Auto) [place] % (Auto) Eos % (Auto) Baso % (Auto) Neut # (Auto) Lymph # (Auto) [place] # (Auto) Eos # (Auto) Baso # (Auto) Sodium 133 Potassium 5.9 H Chloride 91 L Carbon Dioxide 31 H Anion Gap 17 BUN 55 H Creatinine 6.1 H Est GFR ( Amer) 11 Est GFR (Non-Af Amer) 9 POC Glucose (mg/dL) 301 H 305 H Random Glucose 382 H Calcium 8.6 Total Bilirubin 0.7 AST 30 ALT 31 Alkaline Phosphatase 122 Total Protein 7.3 Albumin 4.1 Globulin 3.2 Albumin/Globulin Ratio 1.3 B-Hydroxybutyrate 0.09 07/01/18 07/01/18 07:22 12:26 WBC RBC Hgb Hct MCV MCH MCHC RDW Plt Count MPV Neut % (Auto) Lymph % (Auto) [place] % (Auto) Eos % (Auto) Baso % (Auto) Neut # (Auto) Lymph # (Auto) [place] # (Auto) Eos # (Auto) Baso # (Auto) Sodium Potassium Chloride Carbon Dioxide Anion Gap BUN Creatinine Est GFR ( Amer) Est GFR (Non-Af Amer) POC Glucose (mg/dL) 79 140 H Random Glucose Calcium Total Bilirubin AST ALT Alkaline Phosphatase Total Protein Albumin Globulin Albumin/Globulin Ratio B-Hydroxybutyrate Assessment & Plan (1) Cellulitis of foot, right Status: Acute (2) [id number] kidney injury Status: Acute - Assessment and Plan (Free Text) Assessment: needs imaging, vascular eval, IV antibiotics will check cultures discussed with podiatry
--- NOTE | 2018-07-01 14:32 | CP.PCM.CON ---
History of Present Illness - History of Present Illness History of Present Illness: Patient seen while still in ER. I have been in contact with resident Dr Mariluz Iqbal who dictated the full consult report. Patient is 78/O male who had visited a outpatient interviewing clerk about 1 week ago and had his toenails cut and then develope d redness and soreness in his right big toe. His sugars have been out of control. Patient has a history of DM<HTN<HLD<ERSD<CAD<CABG and he has bipolar disease. He does have pedal pulses palpable and there is no drainage from the hallux. The area of concern is dry. Xrays were reviewed and did not show any eric changes at this time. Orders for silvadene dressing already done. Patient was seen by Dr Wiley for antibiotic management. We will continue to follow patient while he is hospitalized. I do not expect anything other than local wound care for now but patient will be monitored. Past Patient History - Infectious Disease Hx of Infectious Diseases: None - Tetanus Immunizations Tetanus Immunization: Unknown - Past Medical History & Family History Past Medical History?: Yes - Past Social History Smoking Status: Former Smoker Alcohol: Occasional Drugs: Denies Home Situation {Lives}: With Family Domestic Violence: Negative - CARDIAC Hx Congestive Heart Failure: Yes Hx Hypercholesterolemia: Yes Hx Hypertension: Yes Hx Peripheral Edema: Yes (no longer) - PULMONARY Hx Chronic Obstructive Pulmonary Disease (COPD): Yes Hx Pneumonia: Yes - NEUROLOGICAL Hx Dementia: Yes - HEENT Hx HEENT Problems: Yes Hx Cataracts: Yes (bilat iol) - RENAL Hx Chronic Kidney Disease: Yes - ENDOCRINE/METABOLIC Hx Diabetes Mellitus Type 1: Yes - HEMATOLOGICAL/ONCOLOGICAL Hx Blood Disorders: No - INTEGUMENTARY Hx Dermatological Problems: Yes (ble with discoloration) - MUSCULOSKELETAL/RHEUMATOLOGICAL Hx Arthritis: Yes - GASTROINTESTINAL Hx Gastrointestinal Disorders: Yes Hx Gastroesophageal Reflux: Yes - GENITOURINARY/GYNECOLOGICAL Hx Genitourinary Disorders: Yes Hx Prostate Problems: Yes Other/Comment: BPH - PSYCHIATRIC Hx Bipolar Disorder: Yes Hx Substance Use: No - SURGICAL HISTORY Hx Coronary Artery Bypass Graft: Yes (Aortive valve replacement9 Tissue valve ) in 07/2013 at [facility] in [facility]) Hx Open Heart Surgery: Yes Hx Valve Replacement: Yes (Tissue valve AVR in 2012) - ANESTHESIA Hx Anesthesia: Yes Hx Anesthesia Reactions: No Hx Malignant Hyperthermia: No Meds Allergies/Adverse Reactions: Allergies Allergy/AdvReac Type Severity Reaction Status Date / Time No Known Allergies Allergy Verified 06/30/18 13:47 - Medications Medications: Current Medications Acetaminophen (Tylenol 325mg Tab) 650 mg PO Q6H PRN PRN Reason: MILD PAIN Amlodipine Besylate (Norvasc) 10 mg PO DAILY [facility] Last Admin: 07/01/18 10:05 Dose: 10 mg Aspirin (Aspirin Chewable) 81 mg PO DAILY [facility] Last Admin: 07/01/18 10:05 Dose: 81 mg Calcium Acetate (Phoslo) 1,334 mg PO ACTID [facility] Last Admin: 07/01/18 12:00 Dose: 1,334 mg Docusate Sodium (Colace) 100 mg PO BID [facility] Last Admin: 07/01/18 10:05 Dose: 100 mg Glimepiride (Amaryl) 4 mg PO DAILY [facility] Last Admin: 07/01/18 10:05 Dose: 4 mg Heparin Sodium (Porcine) (Heparin) 5,000 units SC Q8 [facility] Last Admin: 07/01/18 14:08 Dose: 5,000 units Piperacillin Sod/Tazobactam Sod (Zosyn 2.25 Gm Iv Premix) 2.25 gm in 50 mls @ 100 mls/hr IVPB Q12H [facility]; Protocol Last Admin: 07/01/18 10:10 Dose: 100 mls/hr Vancomycin HCl 1 gm/ Sodium (Chloride) 250 mls @ 166.7 mls/hr IVPB MWF [facility]; Protocol Insulin Aspart (Novolog) 0 unit SC ACHS [facility]; Protocol Last Admin: 07/01/18 12:00 Dose: Not Given Insulin Glargine (Lantus) [address] [facility] Last Admin: 06/30/18 23:00 Dose: 30 units Lamotrigine (Lamictal) 25 mg PO BID [facility] Last Admin: 07/01/18 10:05 Dose: 25 mg Losartan Potassium (Cozaar) 100 mg PO DAILY [facility] Last Admin: 07/01/18 10:05 Dose: 100 mg Pantoprazole Sodium (Protonix Ec Tab) 40 mg PO DAILY [facility] Last Admin: 07/01/18 10:05 Dose: 40 mg Rosuvastatin Calcium (Crestor) 10 mg PO HS [facility] Last Admin: 06/30/18 22:59 Dose: 10 mg Tamsulosin HCl (Flomax) 0.4 mg PO DAILY [facility] Last Admin: 07/01/18 10:05 Dose: 0.4 mg Vitamin B Complex/Vit C/Folic Acid (Nephro-Poly) 1 tab PO 0800 [facility] Last Admin: 07/01/18 08:00 Dose: 1 tab Results - Vital Signs Recent Vital Signs: Last Vital Signs Temp 97.8 F 07/01/18 13:24 Pulse 72 07/01/18 13:24 Resp 18 07/01/18 13:24 BP 173/66 H 07/01/18 13:24 Pulse Ox 99 07/01/18 13:24 - Labs Result Diagrams: 06/30/18 16:03 06/30/18 16:03 Labs: Laboratory Results - last 24 hr 06/30/18 06/30/18 06/30/18 14:54 14:56 16:03 WBC 7.1 RBC 3.78 L Hgb 11.0 L Hct 32.4 L MCV 85.8 D MCH 29.0 MCHC 33.9 RDW 15.5 H Plt Count 157 MPV 9.0 Neut % (Auto) 65.8 Lymph % (Auto) 20.6 [place] % (Auto) 10.4 H Eos % (Auto) 1.9 Baso % (Auto) 1.3 Neut # (Auto) 4.7 Lymph # (Auto) 1.5 [place] # (Auto) 0.7 Eos # (Auto) 0.1 Baso # (Auto) 0.1 Sodium Potassium Chloride Carbon Dioxide Anion Gap BUN Creatinine Est GFR ( Amer) Est GFR (Non-Af Amer) POC Glucose (mg/dL) 454 H* 456 H* Random Glucose Calcium Total Bilirubin AST ALT Alkaline Phosphatase Total Protein Albumin Globulin Albumin/Globulin Ratio B-Hydroxybutyrate 06/30/18 06/30/18 06/30/18 16:03 20:19 21:52 WBC RBC Hgb Hct MCV MCH MCHC RDW Plt Count MPV Neut % (Auto) Lymph % (Auto) [place] % (Auto) Eos % (Auto) Baso % (Auto) Neut # (Auto) Lymph # (Auto) [place] # (Auto) Eos # (Auto) Baso # (Auto) Sodium 133 Potassium 5.9 H Chloride 91 L Carbon Dioxide 31 H Anion Gap 17 BUN 55 H Creatinine 6.1 H Est GFR ( Amer) 11 Est GFR (Non-Af Amer) 9 POC Glucose (mg/dL) 301 H 305 H Random Glucose 382 H Calcium 8.6 Total Bilirubin 0.7 AST 30 ALT 31 Alkaline Phosphatase 122 Total Protein 7.3 Albumin 4.1 Globulin 3.2 Albumin/Globulin Ratio 1.3 B-Hydroxybutyrate 0.09 07/01/18 07/01/18 07:22 12:26 WBC RBC Hgb Hct MCV MCH MCHC RDW Plt Count MPV Neut % (Auto) Lymph % (Auto) [place] % (Auto) Eos % (Auto) Baso % (Auto) Neut # (Auto) Lymph # (Auto) [place] # (Auto) Eos # (Auto) Baso # (Auto) Sodium Potassium Chloride Carbon Dioxide Anion Gap BUN Creatinine Est GFR ( Amer) Est GFR (Non-Af Amer) POC Glucose (mg/dL) 79 140 H Random Glucose Calcium Total Bilirubin AST ALT Alkaline Phosphatase Total Protein Albumin Globulin Albumin/Globulin Ratio B-Hydroxybutyrate
--- NOTE | 2018-07-01 15:20 | CP.PCM.CON ---
History of Present Illness - History of Present Illness History of Present Illness: Nephrology Consultation Note: Assessment: Stable Rt foot cellulitis Diabetic chronic Kidney Disease (E11.22) Hypertensive Chronic Kidney Disease (I12.0) End stage renal disease (N18.6) dependence on hemodialysis (Z99.2) (MWF) via AVF Anemia (D64.9), Hyperphosphatemia (E83.39), Secondary Hyperparathyroidism (E21.1), HTN (I12.0) Plan: Will plan for HD today as ordered. Continue with Nephrovite 1 tab/day. PRBC as needed for anemia. not on LESLI with dialysis as last Hb 11 Continue with phos binders, last phos level: check BP control with meds as ordered. Patient on RAAS ish Glycemic control, Dialysis consistent diet Further work up/management as per primary team Dose meds/antibiotics (if needed) for ESRD status. Avoid fleets enema/magnesium based laxatives. ID, podiatry follow up Thanks for allowing me to participate in care of your patient. Will follow patient with you. Please call if any Qs Dr Edwardo Valenzuela Office: [phone] Chief Complaint;Rt toe infection HPI: Pt is a 78 year old male with PMHx of DM, HTN, HLD, ESRD on dialysis (MWF), CAD s/p CABG, AVR, BPH and Bipolar disorder presents to ED complaining of redness, swelling of the right big toe and admitted for cellulitis. Renal consult requested for ESRD management. last HD friday. otherwise feels usual health ROS: Cardiovascular: No chest pain. Pulmonary: No shortness of breath Gastrointestinal: denies abdominal pain No nausea. No vomiting. Genitourinary: No pain while urinating. Denies blood in urine. All other negative except as mentioned in HPI Physical Examination: General Appearance: Comfortable, in no acute respiratory distress, co-operative . Vitals reviewed and noted as below Head; Atraumatic, normocephalic ENT: no ulcers no thrush. Tongue is midline. Oropharynx: no rash or ulcers. EYES: Pupils are equal, round and reactive to light accommodation. Eye muscles and extraocular movement intact. Sclera is anicteric. Neck; supple no lymphadenopathy, no thyromegaly or bruit Lungs: Normal respiratory rate/effort. Breath sounds bilateral equal and clear Heart: Normal rate. s1s2 normal. No rub or gallop. Extremities: no edema. No varicose veins. Rt foot dressed Neurological: Patient is alert, awake and oriented to person, place and time. No focal deficit. Strength bilateral appropriate and equal Skin: Warm and dry. Normal turgor. No rash. Palpitation: Normal elasticity for a ge Abdomen: Abdomen is soft. Bowel sounds +. There is no abdominal tenderness, no guarding/rigidity or organomegaly Psych: normal insight and normal affect/mood MSK: no joint tenderness or swelling. Digits and nails normal, no deformity : kidney or bladder not palpable Access: AVF Labs/imaging reviewed. Past medical history, past surgical history, family history, social history, allergy reviewed and noted as below Family Hx: no hx of CKD. Non contributory Past Patient History - Infectious Disease Hx of Infectious Diseases: None - Tetanus Immunizations Tetanus Immunization: Unknown - Past Medical History & Family History Past Medical History?: Yes - Past Social History Smoking Status: Former Smoker Alcohol: Occasional Drugs: Denies Home Situation {Lives}: With Family Domestic Violence: Negative - CARDIAC Hx Congestive Heart Failure: Yes Hx Hypercholesterolemia: Yes Hx Hypertension: Yes Hx Peripheral Edema: Yes (no longer) - PULMONARY Hx Chronic Obstructive Pulmonary Disease (COPD): Yes Hx Pneumonia: Yes - NEUROLOGICAL Hx Dementia: Yes - HEENT Hx HEENT Problems: Yes Hx Cataracts: Yes (bilat iol) - RENAL Hx Chronic Kidney Disease: Yes - ENDOCRINE/METABOLIC Hx Diabetes Mellitus Type 1: Yes - HEMATOLOGICAL/ONCOLOGICAL Hx Blood Disorders: No - INTEGUMENTARY Hx Dermatological Problems: Yes (ble with discoloration) - MUSCULOSKELETAL/RHEUMATOLOGICAL Hx Arthritis: Yes - GASTROINTESTINAL Hx Gastrointestinal Disorders: Yes Hx Gastroesophageal Reflux: Yes - GENITOURINARY/GYNECOLOGICAL Hx Genitourinary Disorders: Yes Hx Prostate Problems: Yes Other/Comment: BPH - PSYCHIATRIC Hx Bipolar Disorder: Yes Hx Substance Use: No - SURGICAL HISTORY Hx Coronary Artery Bypass Graft: Yes (Aortive valve replacement9 Tissue valve ) in 07/2013 at [facility] in [facility]) Hx Open Heart Surgery: Yes Hx Valve Replacement: Yes (Tissue valve AVR in 2012) - ANESTHESIA Hx Anesthesia: Yes Hx Anesthesia Reactions: No Hx Malignant Hyperthermia: No Meds Allergies/Adverse Reactions: Allergies Allergy/AdvReac Type Severity Reaction Status Date / Time No Known Allergies Allergy Verified 06/30/18 13:47 - Medications Medications: Current Medications Acetaminophen (Tylenol 325mg Tab) 650 mg PO Q6H PRN PRN Reason: MILD PAIN Amlodipine Besylate (Norvasc) 10 mg PO DAILY [facility] Last Admin: 07/01/18 10:05 Dose: 10 mg Aspirin (Aspirin Chewable) 81 mg PO DAILY [facility] Last Admin: 07/01/18 10:05 Dose: 81 mg Calcium Acetate (Phoslo) 1,334 mg PO ACTID [facility] Last Admin: 07/01/18 12:00 Dose: 1,334 mg Docusate Sodium (Colace) 100 mg PO BID [facility] Last Admin: 07/01/18 10:05 Dose: 100 mg Glimepiride (Amaryl) 4 mg PO DAILY [facility] Last Admin: 07/01/18 10:05 Dose: 4 mg Heparin Sodium (Porcine) (Heparin) 5,000 units SC Q8 [facility] Last Admin: 07/01/18 14:08 Dose: 5,000 units Piperacillin Sod/Tazobactam Sod (Zosyn 2.25 Gm Iv Premix) 2.25 gm in 50 mls @ 100 mls/hr IVPB Q12H [facility]; Protocol Last Admin: 07/01/18 10:10 Dose: 100 mls/hr Vancomycin HCl 1 gm/ Sodium (Chloride) 250 mls @ 166.7 mls/hr IVPB MWF [facility]; Protocol Insulin Aspart (Novolog) 0 unit SC ACHS [facility]; Protocol Last Admin: 07/01/18 12:00 Dose: Not Given Insulin Glargine (Lantus) 30 unit SC [facility] Last Admin: 06/30/18 23:00 Dose: 30 units Lamotrigine (Lamictal) 25 mg PO BID [facility] Last Admin: 07/01/18 10:05 Dose: 25 mg Losartan Potassium (Cozaar) 100 mg PO DAILY [facility] Last Admin: 07/01/18 10:05 Dose: 100 mg Pantoprazole Sodium (Protonix Ec Tab) 40 mg PO DAILY [facility] Last Admin: 07/01/18 10:05 Dose: 40 mg Rosuvastatin Calcium (Crestor) 10 mg PO HS [facility] Last Admin: 06/30/18 22:59 Dose: 10 mg Tamsulosin HCl (Flomax) 0.4 mg PO DAILY [facility] Last Admin: 07/01/18 10:05 Dose: 0.4 mg Vitamin B Complex/Vit C/Folic Acid (Nephro-Poly) 1 tab PO 0800 [facility] Last Admin: 07/01/18 08:00 Dose: 1 tab Results - Vital Signs Recent Vital Signs: Last Vital Signs Temp 97.9 F 07/01/18 14:54 Pulse 73 07/01/18 14:54 Resp 20 07/01/18 14:54 BP 187/71 H 07/01/18 14:54 Pulse Ox 99 07/01/18 14:54 - Labs Result Diagrams: 06/30/18 16:03 06/30/18 16:03 Labs: Laboratory Results - last 24 hr 06/30/18 06/30/18 06/30/18 16:03 16:03 20:19 WBC 7.1 RBC 3.78 L Hgb 11.0 L Hct 32.4 L MCV 85.8 D MCH 29.0 MCHC 33.9 RDW 15.5 H Plt Count 157 MPV 9.0 Neut % (Auto) 65.8 Lymph % (Auto) 20.6 Boyle % (Auto) 10.4 H Eos % (Auto) 1.9 Baso % (Auto) 1.3 Neut # (Auto) 4.7 Lymph # (Auto) 1.5 Boyle # (Auto) 0.7 Eos # (Auto) 0.1 Baso # (Auto) 0.1 Sodium 133 Potassium 5.9 H Chloride 91 L Carbon Dioxide 31 H Anion Gap 17 BUN 55 H Creatinine 6.1 H Est GFR ( Amer) 11 Est GFR (Non-Af Amer) 9 POC Glucose (mg/dL) 301 H Random Glucose 382 H Calcium 8.6 Total Bilirubin 0.7 AST 30 ALT 31 Alkaline Phosphatase 122 Total Protein 7.3 Albumin 4.1 Globulin 3.2 Albumin/Globulin Ratio 1.3 B-Hydroxybutyrate 0.09 06/30/18 07/01/18 07/01/18 21:52 07:22 12:26 WBC RBC Hgb Hct MCV MCH MCHC RDW Plt Count MPV Neut % (Auto) Lymph % (Auto) Boyle % (Auto) Eos % (Auto) Baso % (Auto) Neut # (Auto) Lymph # (Auto) Boyle # (Auto) Eos # (Auto) Baso # (Auto) Sodium Potassium Chloride Carbon Dioxide Anion Gap BUN Creatinine Est GFR ( Amer) Est GFR (Non-Af Amer) POC Glucose (mg/dL) 305 H 79 140 H Random Glucose Calcium Total Bilirubin AST ALT Alkaline Phosphatase Total Protein Albumin Globulin Albumin/Globulin Ratio B-Hydroxybutyrate
[2018-07-01] MEDS: (Lantus) Insulin Glargine, Recombinant SC SCH (22:28)
--- NOTE | 2018-07-01 22:49 | CP.PCM.PN ---
Subjective - Date & Time of Evaluation Date of Evaluation: 07/01/18 Time of Evaluation: 20:20 - Subjective Subjective: Patient seen during HD. Feels better, with good appetite, Seen Dr Agosto, and DR Wiley. On IV Vancomycin and IV Zosyn, pending wound culture results. Objective - Vital Signs/Intake and Output Vital Signs (last 24 hours): Temp Pulse Resp BP Pulse Ox 98.1 F 83 16 133/64 100 07/01/18 20:35 07/01/18 20:35 07/01/18 19:07 07/01/18 20:35 07/01/18 17:05 - Medications Medications: Current Medications Acetaminophen (Tylenol 325mg Tab) 650 mg PO Q6H PRN PRN Reason: MILD PAIN Amlodipine Besylate (Norvasc) 10 mg PO DAILY [facility] Last Admin: 07/01/18 10:05 Dose: 10 mg Aspirin (Aspirin Chewable) 81 mg PO DAILY [facility] Last Admin: 07/01/18 10:05 Dose: 81 mg Calcium Acetate (Phoslo) 1,334 mg PO ACTID [facility] Last Admin: 07/01/18 16:30 Dose: Not Given Docusate Sodium (Colace) 100 mg PO BID [facility] Last Admin: 07/01/18 18:00 Dose: Not Given Gabapentin (Neurontin) 100 mg PO TID [facility] Last Admin: 07/01/18 18:00 Dose: Not Given Glimepiride (Amaryl) 4 mg PO DAILY [facility] Last Admin: 07/01/18 10:05 Dose: 4 mg Heparin Sodium (Porcine) (Heparin) 5,000 units SC Q8 [facility] Last Admin: 07/01/18 22:26 Dose: 5,000 units Piperacillin Sod/Tazobactam Sod (Zosyn 2.25 Gm Iv Premix) 2.25 gm in 50 mls @ 100 mls/hr IVPB Q12H [facility]; Protocol Last Admin: 07/01/18 22:27 Dose: 100 mls/hr Vancomycin HCl 1 gm/ Sodium (Chloride) 250 mls @ 166.7 mls/hr IVPB MWF [facility]; Protocol Insulin Aspart (Novolog) 0 unit SC ACHS [facility]; Protocol Last Admin: 07/01/18 21:57 Dose: Not Given Insulin Glargine (Lantus) 30 unit SC HS [facility] Last Admin: 07/01/18 22:28 Dose: 30 units Lamotrigine (Lamictal) 25 mg PO BID [facility] Last Admin: 07/01/18 18:00 Dose: Not Given Losartan Potassium (Cozaar) 100 mg PO DAILY [facility] Last Admin: 07/01/18 10:05 Dose: 100 mg Pantoprazole Sodium (Protonix Ec Tab) 40 mg PO DAILY [facility] Last Admin: 07/01/18 10:05 Dose: 40 mg Rosuvastatin Calcium (Crestor) 10 mg PO HS [facility] Last Admin: 07/01/18 22:27 Dose: 10 mg Tamsulosin HCl (Flomax) 0.4 mg PO DAILY [facility] Last Admin: 07/01/18 10:05 Dose: 0.4 mg Vitamin B Complex/Vit C/Folic Acid (Nephro-Poly) 1 tab PO 0800 [facility] Last Admin: 07/01/18 08:00 Dose: 1 tab - Labs Labs: 06/30/18 16:03 06/30/18 16:03 - Constitutional Appears: Well, No Acute Distress, Chronically Ill - Head Exam Head Exam: NORMAL INSPECTION - Eye Exam Eye Exam: Normal appearance Pupil Exam: NORMAL ACCOMODATION - ENT Exam ENT Exam: Normal Exam - Neck Exam Neck Exam: Normal Inspection - Respiratory Exam Respiratory Exam: Clear to Ausculation Bilateral, NORMAL BREATHING PATTERN - Cardiovascular Exam Cardiovascular Exam: REGULAR RHYTHM - GI/Abdominal Exam GI & Abdominal Exam: Soft, Normal Bowel Sounds - Exam Exam: Circumcision - Extremities Exam Extremities Exam: Normal Capillary Refill, Normal Inspection - Back Exam Back Exam: NORMAL INSPECTION - Neurological Exam Neurological Exam: Alert, Awake, Oriented x3 - Psychiatric Exam Psychiatric exam: Anxious - Skin Skin Exam: Dry, Intact Assessment and Plan (1) Cellulitis of foot, right Assessment & Plan: On IV antibiotics. Status: Acute (2) Uncontrolled insulin dependent diabetes mellitus Assessment & Plan: On Insulin. Status: Acute (3) Chronic kidney disease with end stage renal failure on dialysis Assessment & Plan: On HD as per Nephrologists. Status: Acute
[2018-07-02 07:17] LABS: BASO # 0.1 K/uL (0.0-0.2); BASO % 1.4 % (0.0-2.0); EOS # 0.2 K/uL (0.0-0.7); EOS % 2.7 % (0.0-4.0); HEMOGLOBIN 11.1 g/dL (12.0-18.0); LYMPH # 1.5 K/uL (1.0-4.3); LYMPH % 19.5 % (20.0-40.0); MEAN CELL VOLUME 84.1 fL (80.0-94.0); MEAN CORPUSCULAR HEMOGLOBIN 28.9 pg (27.0-31.0); MEAN CORPUSCULAR HGB CONC 34.4 g/dL (33.0-37.0); MONO # 0.7 K/uL (0.0-0.8); MONO % 9.3 % (0.0-10.0); NEUT % 67.1 % (50.0-75.0); RBC 3.83 Mil/uL (4.40-5.90); RED CELL DISTRIBUTION WIDTH 15.1 % (11.5-14.5); WHITE BLOOD COUNT 7.5 K/uL (4.8-10.8)
[2018-07-02 07:50] LABS: ALB/GLOB RATIO 1.1 (1.0-2.1); ALBUMIN 3.6 g/dL (3.5-5.0); CALCIUM 8.5 mg/dl (8.6-10.4)
[2018-07-02] MEDS: Multivitamin Vitamin B Complex (Nephro-Vite) Tab PO SCH (08:23)
[2018-07-02] MEDS: (Novolog) Insulin Aspart, Recombinant 100 u/ml 10 ml vial SC SCH ×3 (08:24→21:34)
[2018-07-02] MEDS: Pantoprazole 40 mg EC Tab PO SCH (10:08)
[2018-07-02] MEDS: Piperacill/Tazo 2.25gm in Dex 2.25 GM/50 ML BAG IVPB SCH ×2 (10:14→21:01)
--- NOTE | 2018-07-02 13:30 | CP.PCM.PN ---
Subjective - Date & Time of Evaluation Date of Evaluation: 07/02/18 Time of Evaluation: 13:29 - Subjective Subjective: Nephrology Consultation Note: Assessment: Stable Rt foot cellulitis Diabetic chronic Kidney Disease (E11.22) Hypertensive Chronic Kidney Disease (I12.0) End stage renal disease (N18.6) dependence on hemodialysis (Z99.2) (MWF) via AVF Anemia (D64.9), Hyperphosphatemia (E83.39), Secondary Hyperparathyroidism (E21.1), HTN (I12.0) Plan: Will plan for HD MWF schedule as ordered. Continue with Nephrovite 1 tab/day. PRBC as needed for anemia. not on LESLI with dialysis as last Hb 11 Continue with phos binders, last phos level: check BP control with meds as ordered. Patient on RAAS ish Glycemic control, Dialysis consistent diet Further work up/management as per primary team Dose meds/antibiotics (if needed) for ESRD status. Avoid fleets enema/magnesium based laxatives. ID, podiatry follow up appreciated Thanks for allowing me to participate in care of your patient. Will follow patient with you. Please call if any Qs Dr Edwardo Valenzuela Office: [phone] Chief Complaint;Rt toe infection HPI: Pt is a 78 year old male with PMHx of DM, HTN, HLD, ESRD on dialysis (MWF), CAD s/p CABG, AVR, BPH and Bipolar disorder presents to ED complaining of redness, swelling of the right big toe and admitted for cellulitis. Renal consult requested for ESRD management. last HD friday. otherwise feels usual health ROS: Cardiovascular: No chest pain. Pulmonary: No shortness of breath Gastrointestinal: denies abdominal pain No nausea. No vomiting. Genitourinary: No pain while urinating. Denies blood in urine. All other negative except as mentioned in HPI Physical Examination: General Appearance: Comfortable, in no acute respiratory distress, co-operative . Vitals reviewed and noted as below Head; Atraumatic, normocephalic ENT: no ulcers no thrush. Tongue is midline. Oropharynx: no rash or ulcers. EYES: Pupils are equal, round and reactive to light accommodation. Eye muscles and extraocular movement intact. Sclera is anicteric. Neck; supple no lymphadenopathy, no thyromegaly or bruit Lungs: Normal respiratory rate/effort. Breath sounds bilateral equal and clear Heart: Normal rate. s1s2 normal. No rub or gallop. Extremities: no edema. No varicose veins. Rt foot dressed Neurological: Patient is alert, awake and oriented to person, place and time. No focal deficit. Strength bilateral appropriate and equal Skin: Warm and dry. Normal turgor. No rash. Palpitation: Normal elasticity for age Abdomen: Abdomen is soft. Bowel sounds +. There is no abdominal tenderness, no guarding/rigidity or organomegaly Psych: normal insight and normal affect/mood MSK: no joint tenderness or swelling. Digits and nails normal, no deformity : kidney or bladder not palpable Access: AVF Labs/imaging reviewed. Past medical history, past surgical history, family history, social history, allergy reviewed and noted as below Family Hx: no hx of CKD. Non contributory Objective - Vital Signs/Intake and Output Vital Signs (last 24 hours): Temp Pulse Resp BP Pulse Ox 98.3 F 78 20 158/68 H 98 07/02/18 08:27 07/02/18 08:27 07/02/18 08:27 07/02/18 08:27 07/02/18 08:27 Intake and Output: 07/02/18 07/02/18 06:59 18:59 Intake Total 200 240 Balance 200 240 - Medications Medications: Current Medications Acetaminophen (Tylenol 325mg Tab) 650 mg PO Q6H PRN PRN Reason: MILD PAIN Amlodipine Besylate (Norvasc) 10 mg PO DAILY [facility] Last Admin: 07/02/18 10:09 Dose: 10 mg Aspirin (Aspirin Chewable) 81 mg PO DAILY [facility] Last Admin: 07/02/18 10:08 Dose: 81 mg Calcium Acetate (Phoslo) 1,334 mg PO ACTID [facility] Last Admin: 07/02/18 12:27 Dose: 1,334 mg Docusate Sodium (Colace) 100 mg PO BID [facility] Last Admin: 07/02/18 10:08 Dose: 100 mg Gabapentin (Neurontin) 100 mg PO TID [facility] Last Admin: 07/02/18 10:13 Dose: 100 mg Glimepiride (Amaryl) 4 mg PO DAILY [facility] Last Admin: 07/02/18 10:08 Dose: 4 mg Heparin Sodium (Porcine) (Heparin) 5,000 units SC Q8 [facility] Last Admin: 07/02/18 07:22 Dose: 5,000 units Piperacillin Sod/Tazobactam Sod (Zosyn 2.25 Gm Iv Premix) 2.25 gm in 50 mls @ 100 mls/hr IVPB Q12H [facility]; Protocol Last Admin: 07/02/18 10:14 Dose: 100 mls/hr Vancomycin HCl 1 gm/ Sodium (Chloride) 250 mls @ 166.7 mls/hr IVPB MWF [facility]; Protocol Insulin Aspart (Novolog) 0 unit SC ACHS [facility]; Protocol Last Admin: 07/02/18 08:24 Dose: 4 units Insulin Glargine (Lantus) 30 unit SC HS [facility] Last Admin: 07/01/18 22:28 Dose: 30 units Lamotrigine (Lamictal) 25 mg PO BID [facility] Last Admin: 07/02/18 10:08 Dose: 25 mg Losartan Potassium (Cozaar) 100 mg PO DAILY [facility] Last Admin: 07/02/18 10:09 Dose: 100 mg Pantoprazole Sodium (Protonix Ec Tab) 40 mg PO DAILY [facility] Last Admin: 07/02/18 10:08 Dose: 40 mg Rosuvastatin Calcium (Crestor) 10 mg PO HS [facility] Last Admin: 07/01/18 22:27 Dose: 10 mg Tamsulosin HCl (Flomax) 0.4 mg PO DAILY [facility] Last Admin: 07/02/18 10:08 Dose: 0.4 mg Vitamin B Complex/Vit C/Folic Acid (Nephro-Poly) 1 tab PO 0800 [facility] Last Admin: 07/02/18 08:23 Dose: 1 tab - Labs Labs: 07/02/18 07:06 07/02/18 07:06
--- NOTE | 2018-07-02 13:41 | CP.PCM.PN ---
Subjective - Date & Time of Evaluation Date of Evaluation: 07/02/18 Time of Evaluation: 13:36 - Subjective Subjective: Podiatry Progress note: Dr. Jenkins/Dr. Agosto 78 year old male was seen and evaluated at bedside for redness, swelling of the right big toe. Patient is AAOx3 and appears in NAD. Denies of an pain to the foot today. Denies of recent F/N/V/C/SOB/CP. No other pedal complains at this time. Objective - Vital Signs/Intake and Output Vital Signs (last 24 hours): Temp Pulse Resp BP Pulse Ox 98.3 F 78 20 158/68 H 98 07/02/18 08:27 07/02/18 08:27 07/02/18 08:27 07/02/18 08:27 07/02/18 08:27 Intake and Output: 07/02/18 07/02/18 06:59 18:59 Intake Total 200 240 Balance 200 240 - Medications Medications: Current Medications Acetaminophen (Tylenol 325mg Tab) 650 mg PO Q6H PRN PRN Reason: MILD PAIN Amlodipine Besylate (Norvasc) 10 mg PO DAILY [facility] Last Admin: 07/02/18 10:09 Dose: 10 mg Aspirin (Aspirin Chewable) 81 mg PO DAILY [facility] Last Admin: 07/02/18 10:08 Dose: 81 mg Calcium Acetate (Phoslo) 1,334 mg PO ACTID [facility] Last Admin: 07/02/18 12:27 Dose: 1,334 mg Docusate Sodium (Colace) 100 mg PO BID [facility] Last Admin: 07/02/18 10:08 Dose: 100 mg Gabapentin (Neurontin) 100 mg PO TID [facility] Last Admin: 07/02/18 10:13 Dose: 100 mg Glimepiride (Amaryl) 4 mg PO DAILY [facility] Last Admin: 07/02/18 10:08 Dose: 4 mg Heparin Sodium (Porcine) (Heparin) 5,000 units SC Q8 [facility] Last Admin: 07/02/18 07:22 Dose: 5,000 units Piperacillin Sod/Tazobactam Sod (Zosyn 2.25 Gm Iv Premix) 2.25 gm in 50 mls @ 100 mls/hr IVPB Q12H [facility]; Protocol Last Admin: 07/02/18 10:14 Dose: 100 mls/hr Vancomycin HCl 1 gm/ Sodium (Chloride) 250 mls @ 166.7 mls/hr IVPB MWF [facility]; Protocol Insulin Aspart (Novolog) 0 unit SC ACHS [facility]; Protocol Last Admin: 07/02/18 08:24 Dose: 4 units Insulin Glargine (Lantus) 30 unit SC HS [facility] Last Admin: 07/01/18 22:28 Dose: 30 units Lamotrigine (Lamictal) 25 mg PO BID [facility] Last Admin: 07/02/18 10:08 Dose: 25 mg Losartan Potassium (Cozaar) 100 mg PO DAILY [facility] Last Admin: 07/02/18 10:09 Dose: 100 mg Pantoprazole Sodium (Protonix Ec Tab) 40 mg PO DAILY [facility] Last Admin: 07/02/18 10:08 Dose: 40 mg Rosuvastatin Calcium (Crestor) 10 mg PO HS [facility] Last Admin: 07/01/18 22:27 Dose: 10 mg Tamsulosin HCl (Flomax) 0.4 mg PO DAILY [facility] Last Admin: 07/02/18 10:08 Dose: 0.4 mg Vitamin B Complex/Vit C/Folic Acid (Nephro-Poly) 1 tab PO 0800 [facility] Last Admin: 07/02/18 08:23 Dose: 1 tab - Labs Labs: 07/02/18 07:06 07/02/18 07:06 - Constitutional Appears: Well, Non-toxic, No Acute Distress - Extremities Exam Additional comments: Bilateral LE exam: VASC: DP/PT pulses are palpable 2/4, Cap refill time: < 3 sec to all digits, Temp gradient: warm to cool from proximal to distal, no pitting or non-pitting edema noted to bilateral LE DERM: Superficial epidermal lysis with minimal necrotic changes at the distal tip of the right hallux with circumferential minimal localized erythema, no active drainage, no mal-odor, no purulence, no probe to bone, no tunneling, no tracking, no clinical suspicion active infection at this time NEURO: Protective sensation mildly diminished ORTHO: no pain during palpation or AROM or PROM of the right hallux at the MTPJ, MMT: 5/5 in all 4 direction at the ankle joint. - Neurological Exam Neurological Exam: Alert, Awake, Oriented x3 - Psychiatric Exam Psychiatric exam: Normal Affect, Normal Mood Assessment and Plan - Assessment and Plan (Free Text) Assessment: 78 year old male evaluated for right hallux superficial ulcer - non-infected (romo 1) Plan: Patient seen and evaluated Discussed plan with attending Dr. Jenkins Labs, vitals and charts reviewed - afebrile, WBC @ 7.5 Right foot x-ray reviewed - No evidence of cortical erosion or periosteal reaction - no evidence of OM; no soft tissue emphysema Wound cleaned with saline and dressed with xeroform, DSD Silvadine cream ordered Wound cultures: pending Continue IV abx as per ID Patient is stable from podiatry standpoint Will continue to follow patient while in-house
[2018-07-02] MEDS: (Lantus) Insulin Glargine, Recombinant SC SCH ×2 (21:33→22:51)
--- NOTE | 2018-07-02 21:55 | CP.PCM.PN ---
Subjective - Date & Time of Evaluation Date of Evaluation: 07/02/18 Time of Evaluation: 09:00 - Subjective Subjective: Patient feels better. On IV antibiotics. Blood glucose still elevated. Will increase Lantus dose. Objective - Vital Signs/Intake and Output Vital Signs (last 24 hours): Temp Pulse Resp BP Pulse Ox 98.6 F 69 20 114/62 95 07/02/18 16:00 07/02/18 16:00 07/02/18 16:00 07/02/18 16:00 07/02/18 16:00 Intake and Output: 07/02/18 07/03/18 18:59 06:59 Intake Total 590 Balance 590 - Medications Medications: Current Medications Acetaminophen (Tylenol 325mg Tab) 650 mg PO Q6H PRN PRN Reason: MILD PAIN Amlodipine Besylate (Norvasc) 10 mg PO DAILY [facility] Last Admin: 07/02/18 10:09 Dose: 10 mg Aspirin (Aspirin Chewable) 81 mg PO DAILY [facility] Last Admin: 07/02/18 10:08 Dose: 81 mg Calcium Acetate (Phoslo) 1,334 mg PO ACTID [facility] Last Admin: 07/02/18 17:27 Dose: 1,334 mg Docusate Sodium (Colace) 100 mg PO BID [facility] Last Admin: 07/02/18 17:27 Dose: 100 mg Gabapentin (Neurontin) 100 mg PO TID [facility] Last Admin: 07/02/18 17:28 Dose: 100 mg Glimepiride (Amaryl) 4 mg PO DAILY [facility] Last Admin: 07/02/18 10:08 Dose: 4 mg Heparin Sodium (Porcine) (Heparin) 5,000 units SC Q8 [facility] Last Admin: 07/02/18 21:33 Dose: 5,000 units Piperacillin Sod/Tazobactam Sod (Zosyn 2.25 Gm Iv Premix) 2.25 gm in 50 mls @ 100 mls/hr IVPB Q12H [facility]; Protocol Last Admin: 07/02/18 21:01 Dose: 100 mls/hr Vancomycin HCl 1 gm/ Sodium (Chloride) 250 mls @ 166.7 mls/hr IVPB MWF [facility]; Protocol Insulin Aspart (Novolog) 0 unit SC ACHS [facility]; Protocol Last Admin: 07/02/18 21:34 Dose: 2 units Insulin Glargine (Lantus) 35 unit SC HS [facility] Lamotrigine (Lamictal) 25 mg PO BID [facility] Last Admin: 07/02/18 17:28 Dose: 25 mg Losartan Potassium (Cozaar) 100 mg PO DAILY [facility] Last Admin: 07/02/18 10:09 Dose: 100 mg Pantoprazole Sodium (Protonix Ec Tab) 40 mg PO DAILY [facility] Last Admin: 07/02/18 10:08 Dose: 40 mg Rosuvastatin Calcium (Crestor) 10 mg PO HS [facility] Last Admin: 07/02/18 21:33 Dose: 10 mg Silver Sulfadiazine (Silvadene 1% 20 Gm) 0 ea TOP DAILY [facility] Tamsulosin HCl (Flomax) 0.4 mg PO DAILY [facility] Last Admin: 07/02/18 10:08 Dose: 0.4 mg Vitamin B Complex/Vit C/Folic Acid (Nephro-Poly) 1 tab PO 0800 [facility] Last Admin: 07/02/18 08:23 Dose: 1 tab - Labs Labs: 07/02/18 07:06 07/02/18 07:06 - Constitutional Appears: No Acute Distress, Chronically Ill - Eye Exam Eye Exam: Normal appearance - ENT Exam ENT Exam: Normal Exam - Neck Exam Neck Exam: Normal Inspection - Respiratory Exam Respiratory Exam: Clear to Ausculation Bilateral, NORMAL BREATHING PATTERN - Cardiovascular Exam Cardiovascular Exam: REGULAR RHYTHM, Murmur - GI/Abdominal Exam GI & Abdominal Exam: Soft, Normal Bowel Sounds - Rectal Exam Rectal Exam: Deferred - Extremities Exam Additional comments: Inflammed right great toe. - Back Exam Back Exam: NORMAL INSPECTION - Neurological Exam Neurological Exam: Alert, Awake, Oriented x3 - Psychiatric Exam Psychiatric exam: Anxious Assessment and Plan (1) Cellulitis of foot, right Assessment & Plan: On IV antibiotics. Status: Acute (2) Uncontrolled insulin dependent diabetes mellitus Assessment & Plan: Adjust Insulin dosage. Status: Acute (3) Chronic kidney disease with end stage renal failure on dialysis Assessment & Plan: HD as per Nephrologists. Status: Acute
[2018-07-03] MEDS: Silver Sulfadiazine 1% Cream (20 gm) TOP SCH ×2 (05:16→14:16)
[2018-07-03] MEDS: Multivitamin Vitamin B Complex (Nephro-Vite) Tab PO SCH (08:43)
[2018-07-03] MEDS: (Novolog) Insulin Aspart, Recombinant 100 u/ml 10 ml vial SC SCH ×4 (08:44→21:35)
--- NOTE | 2018-07-03 11:33 | CP.PCM.PN ---
Subjective - Date & Time of Evaluation Date of Evaluation: 07/03/18 Time of Evaluation: 11:33 - Subjective Subjective: Nephrology Consultation Note: Assessment: Stable Rt foot cellulitis Diabetic chronic Kidney Disease (E11.22) Hypertensive Chronic Kidney Disease (I12.0) End stage renal disease (N18.6) dependence on hemodialysis (Z99.2) (MWF) via AVF Anemia (D64.9), Hyperphosphatemia (E83.39), Secondary Hyperparathyroidism (E21.1), HTN (I12.0) Plan: Will plan for HD MWF schedule as ordered. Continue with Nephrovite 1 tab/day. PRBC as needed for anemia. not on LESLI with dialysis as last Hb 11 Continue with phos binders, last phos level: check BP control with meds as ordered. Patient on RAAS ish Glycemic control, Dialysis consistent diet Further work up/management as per primary team Dose meds/antibiotics (if needed) for ESRD status. Avoid fleets enema/magnesium based laxatives. ID, podiatry follow up appreciated Thanks for allowing me to participate in care of your patient. Will follow patient with you. Please call if any Qs Dr Edwardo Valenzuela Office: [phone] Chief Complaint;Rt toe infection HPI: Pt is a 78 year old male with PMHx of DM, HTN, HLD, ESRD on dialysis (MWF), CAD s/p CABG, AVR, BPH and Bipolar disorder presents to ED complaining of redness, swelling of the right big toe and admitted for cellulitis. Renal consult requested for ESRD management. last HD friday. otherwise feels usual health ROS: Cardiovascular: No chest pain. Pulmonary: No shortness of breath Gastrointestinal: denies abdominal pain No nausea. No vomiting. Genitourinary: No pain while urinating. Denies blood in urine. All other negative except as mentioned in HPI Physical Examination: seen during HD General Appearance: Comfortable, in no acute respiratory distress, co-operative . Vitals reviewed and noted as below Head; Atraumatic, normocephalic ENT: no ulcers no thrush. Tongue is midline. Oropharynx: no rash or ulcers. EYES: Pupils are equal, round and reactive to light accommodation. Eye muscles and extraocular movement intact. Sclera is anicteric. Neck; supple no lymphadenopathy, no thyromegaly or bruit Lungs: Normal respiratory rate/effort. Breath sounds bilateral equal and clear Heart: Normal rate. s1s2 normal. No rub or gallop. Extremities: no edema. No varicose veins. Rt foot dressed Neurological: Patient is alert, awake and oriented to person, place and time. No focal deficit. Strength bilateral appropriate and equal Skin: Warm and dry. Normal turgor. No rash. Palpitation: Normal elasticity for age Abdomen: Abdomen is soft. Bowel sounds +. There is no abdominal tenderness, no guarding/rigidity or organomegaly Psych: normal insight and normal affect/mood MSK: no joint tenderness or swelling. Digits and nails normal, no deformity : kidney or bladder not palpable Access: AVF Labs/imaging reviewed. Past medical history, past surgical history, family history, social history, allergy reviewed and noted as below Family Hx: no hx of CKD. Non contributory Objective - Vital Signs/Intake and Output Vital Signs (last 24 hours): Temp Pulse Resp BP Pulse Ox 97.7 F 93 H 16 133/61 100 07/03/18 09:51 07/03/18 09:51 07/03/18 09:51 07/03/18 10:00 07/03/18 09:15 Intake and Output: 07/03/18 07/03/18 06:59 18:59 Intake Total 590 Balance 590 - Medications Medications: Current Medications Acetaminophen (Tylenol 325mg Tab) 650 mg PO Q6H PRN PRN Reason: MILD PAIN Amlodipine Besylate (Norvasc) 10 mg PO DAILY [facility] Last Admin: 07/02/18 10:09 Dose: 10 mg Aspirin (Aspirin Chewable) 81 mg PO DAILY [facility] Last Admin: 07/02/18 10:08 Dose: 81 mg Calcium Acetate (Phoslo) 1,334 mg PO ACTID [facility] Last Admin: 07/03/18 08:47 Dose: 1,334 mg Docusate Sodium (Colace) 100 mg PO BID [facility] Last Admin: 07/02/18 17:27 Dose: 100 mg Gabapentin (Neurontin) 100 mg PO TID [facility] Last Admin: 07/02/18 17:28 Dose: 100 mg Glimepiride (Amaryl) 4 mg PO DAILY [facility] Last Admin: 07/02/18 10:08 Dose: 4 mg Heparin Sodium (Porcine) (Heparin) 5,000 units SC Q8 [facility] Last Admin: 07/03/18 05:15 Dose: 5,000 units Piperacillin Sod/Tazobactam Sod (Zosyn 2.25 Gm Iv Premix) 2.25 gm in 50 mls @ 100 mls/hr IVPB Q12H [facility]; Protocol Last Admin: 07/02/18 21:01 Dose: 100 mls/hr Vancomycin HCl 1 gm/ Sodium (Chloride) 250 mls @ 166.7 mls/hr IVPB MWF [facility]; Protocol Insulin Aspart (Novolog) 0 unit SC ACHS [facility]; Protocol Last Admin: 07/03/18 08:44 Dose: 2 units Insulin Glargine (Lantus) 35 unit SC HS [facility] Last Admin: 07/02/18 22:51 Dose: Not Given Lamotrigine (Lamictal) 25 mg PO BID [facility] Last Admin: 07/02/18 17:28 Dose: 25 mg Losartan Potassium (Cozaar) 100 mg PO DAILY [facility] Last Admin: 07/02/18 10:09 Dose: 100 mg Pantoprazole Sodium (Protonix Ec Tab) 40 mg PO DAILY [facility] Last Admin: 07/02/18 10:08 Dose: 40 mg Rosuvastatin Calcium (Crestor) 10 mg PO HS [facility] Last Admin: 07/02/18 21:33 Dose: 10 mg Silver Sulfadiazine (Silvadene 1% 20 Gm) 0 ea TOP DAILY [facility] Last Admin: 07/03/18 05:16 Dose: Not Given Tamsulosin HCl (Flomax) 0.4 mg PO DAILY [facility] Last Admin: 07/02/18 10:08 Dose: 0.4 mg Vitamin B Complex/Vit C/Folic Acid (Nephro-Poly) 1 tab PO 0800 [facility] Last Admin: 07/03/18 08:43 Dose: 1 tab - Labs Labs: 07/02/18 07:06 07/02/18 07:06
[2018-07-03] MEDS: Pantoprazole 40 mg EC Tab PO SCH (14:15)
[2018-07-03] MEDS: Piperacill/Tazo 2.25gm in Dex 2.25 GM/50 ML BAG IVPB SCH ×2 (14:17→22:05)
--- NOTE | 2018-07-03 18:46 | CP.PCM.PN ---
Subjective - Date & Time of Evaluation Date of Evaluation: 07/03/18 Time of Evaluation: 09:00 - Subjective Subjective: right great toe with necrotic tip and mild cellulitis no valeri pus and no foul smell Objective - Vital Signs/Intake and Output Vital Signs (last 24 hours): Temp Pulse Resp BP Pulse Ox 97.5 F L 95 H 16 118/54 L 100 07/03/18 12:37 07/03/18 12:37 07/03/18 12:37 07/03/18 12:37 07/03/18 09:15 Intake and Output: 07/03/18 07/03/18 06:59 18:59 Intake Total 590 800 Balance 590 800 - Medications Medications: Current Medications Acetaminophen (Tylenol 325mg Tab) 650 mg PO Q6H PRN PRN Reason: MILD PAIN Amlodipine Besylate (Norvasc) 10 mg PO DAILY [facility] Last Admin: 07/03/18 14:15 Dose: 10 mg Aspirin (Aspirin Chewable) 81 mg PO DAILY [facility] Last Admin: 07/03/18 14:15 Dose: 81 mg Calcium Acetate (Phoslo) 1,334 mg PO ACTID [facility] Last Admin: 07/03/18 17:29 Dose: 1,334 mg Docusate Sodium (Colace) 100 mg PO BID [facility] Last Admin: 07/03/18 17:29 Dose: 100 mg Gabapentin (Neurontin) 100 mg PO TID [facility] Last Admin: 07/03/18 14:23 Dose: Not Given Glimepiride (Amaryl) 4 mg PO DAILY [facility] Last Admin: 07/03/18 14:15 Dose: 4 mg Heparin Sodium (Porcine) (Heparin) 5,000 units SC Q8 [facility] Last Admin: 07/03/18 14:15 Dose: 5,000 units Piperacillin Sod/Tazobactam Sod (Zosyn 2.25 Gm Iv Premix) 2.25 gm in 50 mls @ 100 mls/hr IVPB Q12H [facility]; Protocol Last Admin: 07/03/18 14:17 Dose: 100 mls/hr Vancomycin HCl 1 gm/ Sodium (Chloride) 250 mls @ 166.7 mls/hr IVPB MWF [facility]; Protocol Last Admin: 07/03/18 14:39 Dose: 166.7 mls/hr Insulin Aspart (Novolog) 0 unit SC ACHS [facility]; Protocol Last Admin: 07/03/18 17:28 Dose: 10 units Insulin Glargine (Lantus) 35 unit SC HS [facility] Last Admin: 07/02/18 22:51 Dose: Not Given Lamotrigine (Lamictal) 25 mg PO BID [facility] Last Admin: 07/03/18 17:29 Dose: 25 mg Losartan Potassium (Cozaar) 100 mg PO DAILY [facility] Last Admin: 07/03/18 14:15 Dose: 100 mg Pantoprazole Sodium (Protonix Ec Tab) 40 mg PO DAILY [facility] Last Admin: 07/03/18 14:15 Dose: 40 mg Rosuvastatin Calcium (Crestor) 10 mg PO HS [facility] Last Admin: 07/02/18 21:33 Dose: 10 mg Silver Sulfadiazine (Silvadene 1% 20 Gm) 0 ea TOP DAILY [facility] Last Admin: 07/03/18 14:16 Dose: 1 applic Tamsulosin HCl (Flomax) 0.4 mg PO DAILY [facility] Last Admin: 07/03/18 14:14 Dose: 0.4 mg Vitamin B Complex/Vit C/Folic Acid (Nephro-Poly) 1 tab PO 0800 [facility] Last Admin: 07/03/18 08:43 Dose: 1 tab - Labs Labs: 07/02/18 07:06 07/02/18 07:06 - Constitutional Appears: Non-toxic, Chronically Ill - Head Exam Head Exam: NORMOCEPHALIC - Eye Exam Eye Exam: absent: Scleral icterus - ENT Exam ENT Exam: Mucous Membranes Dry - Neck Exam Neck Exam: absent: Lymphadenopathy - Respiratory Exam Respiratory Exam: Decreased Breath Sounds - Cardiovascular Exam Cardiovascular Exam: REGULAR RHYTHM - GI/Abdominal Exam GI & Abdominal Exam: Distended, Soft - Rectal Exam Rectal Exam: Deferred - Exam Exam: NORMAL INSPECTION Assessment and Plan (1) Cellulitis of foot, right Status: Acute (2) [id number] kidney injury Status: Acute - Assessment and Plan (Free Text) Assessment: cultures pending antibiotics renewed cont wound care and conservative rx
--- NOTE | 2018-07-03 20:27 | CP.PCM.PN ---
Subjective - Date & Time of Evaluation Date of Evaluation: 07/03/18 Time of Evaluation: 11:00 - Subjective Subjective: Podiatry Progress note: Dr. Jenkins/Dr. Agosto 78 year old male was seen and evaluated at bedside with attending Dr. Jenkins for redness, swelling of the right big toe. Patient is AAOx3 and appears in NAD. Denies of an pain to the foot today. Denies of recent F/N/V/C/SOB/CP. No other pedal complains at this time. Objective - Vital Signs/Intake and Output Vital Signs (last 24 hours): Temp Pulse Resp BP Pulse Ox 98.3 F 70 20 126/69 98 07/03/18 15:00 07/03/18 15:00 07/03/18 15:00 07/03/18 15:00 07/03/18 15:00 Intake and Output: 07/03/18 07/04/18 18:59 06:59 Intake Total 800 Balance 800 - Medications Medications: Current Medications Acetaminophen (Tylenol 325mg Tab) 650 mg PO Q6H PRN PRN Reason: MILD PAIN Amlodipine Besylate (Norvasc) 10 mg PO DAILY [facility] Last Admin: 07/03/18 14:15 Dose: 10 mg Aspirin (Aspirin Chewable) 81 mg PO DAILY [facility] Last Admin: 07/03/18 14:15 Dose: 81 mg Calcium Acetate (Phoslo) 1,334 mg PO ACTID [facility] Last Admin: 07/03/18 17:29 Dose: 1,334 mg Docusate Sodium (Colace) 100 mg PO BID [facility] Last Admin: 07/03/18 17:29 Dose: 100 mg Gabapentin (Neurontin) 100 mg PO TID [facility] Last Admin: 07/03/18 14:23 Dose: Not Given Glimepiride (Amaryl) 4 mg PO DAILY [facility] Last Admin: 07/03/18 14:15 Dose: 4 mg Heparin Sodium (Porcine) (Heparin) 5,000 units SC Q8 [facility] Last Admin: 07/03/18 14:15 Dose: 5,000 units Piperacillin Sod/Tazobactam Sod (Zosyn 2.25 Gm Iv Premix) 2.25 gm in 50 mls @ 100 mls/hr IVPB Q12H [facility]; Protocol Last Admin: 07/03/18 14:17 Dose: 100 mls/hr Vancomycin HCl 1 gm/ Sodium (Chloride) 250 mls @ 166.7 mls/hr IVPB MWF [facility]; Protocol Last Admin: 07/03/18 14:39 Dose: 166.7 mls/hr Insulin Aspart (Novolog) 0 unit SC ACHS [facility]; Protocol Last Admin: 07/03/18 17:28 Dose: 10 units Insulin Glargine (Lantus) 35 unit SC HS [facility] Last Admin: 07/02/18 22:51 Dose: Not Given Lamotrigine (Lamictal) 25 mg PO BID [facility] Last Admin: 07/03/18 17:29 Dose: 25 mg Losartan Potassium (Cozaar) 100 mg PO DAILY [facility] Last Admin: 07/03/18 14:15 Dose: 100 mg Pantoprazole Sodium (Protonix Ec Tab) 40 mg PO DAILY [facility] Last Admin: 07/03/18 14:15 Dose: 40 mg Rosuvastatin Calcium (Crestor) 10 mg PO HS [facility] Last Admin: 07/02/18 21:33 Dose: 10 mg Silver Sulfadiazine (Silvadene 1% 20 Gm) 0 ea TOP DAILY [facility] Last Admin: 07/03/18 14:16 Dose: 1 applic Tamsulosin HCl (Flomax) 0.4 mg PO DAILY [facility] Last Admin: 07/03/18 14:14 Dose: 0.4 mg Vitamin B Complex/Vit C/Folic Acid (Nephro-Poly) 1 tab PO 0800 [facility] Last Admin: 07/03/18 08:43 Dose: 1 tab - Labs Labs: 07/02/18 07:06 07/02/18 07:06 - Constitutional Appears: Well, Non-toxic, No Acute Distress - Head Exam Head Exam: ATRAUMATIC - Extremities Exam Additional comments: Bilateral LE exam: VASC: DP/PT pulses are palpable 2/4, Cap refill time: < 3 sec to all digits, Temp gradient: warm to cool from proximal to distal, no pitting or non-pitting edema noted to bilateral LE DERM: Superficial epidermal lysis with minimal necrotic changes at the distal tip of the right hallux with circumferential minimal localized erythema, no active drainage, no mal-odor, no purulence, no probe to bone, no tunneling, no tracking, no clinical suspicion active infection at this time NEURO: Protective sensation mildly diminished ORTHO: no pain during palpation or AROM or PROM of the right hallux at the MTPJ, MMT: 5/5 in all 4 direction at the ankle joint. - Neurological Exam Neurological Exam: Alert, Awake, Oriented x3 - Psychiatric Exam Psychiatric exam: Normal Affect, Normal Mood Assessment and Plan - Assessment and Plan (Free Text) Assessment: 78 year old male evaluated for right hallux superficial ulcer - non-infected (romo 1) Plan: Patient seen and evaluated with attending Dr. Jenkins Labs, vitals and charts reviewed - afebrile, WBC @ 7.5 (07/02) Right foot x-ray reviewed - No evidence of cortical erosion or periosteal reaction - no evidence of OM; no soft tissue emphysema Wound cleaned with saline and dressed with xeroform, DSD Silvadine cream ordered Wound cultures: pending Continue IV abx as per ID Patient is stable from podiatry standpoint - Upon discharge, please follow up with patient's loan administrator or Dr. Jenkins Will continue to follow patient while in-house
[2018-07-03] MEDS: (Lantus) Insulin Glargine, Recombinant SC SCH (21:31)
--- NOTE | 2018-07-03 23:11 | CP.PCM.PN ---
Subjective - Date & Time of Evaluation Date of Evaluation: 07/03/18 Time of Evaluation: 23:09 - Subjective Subjective: Patient has no complaint. Afebrile. Evaluated by podiatrists and ID. Right great toe wound dry. Objective - Vital Signs/Intake and Output Vital Signs (last 24 hours): Temp Pulse Resp BP Pulse Ox 98.3 F 70 20 126/69 98 07/03/18 15:00 07/03/18 15:00 07/03/18 15:00 07/03/18 15:00 07/03/18 15:00 Intake and Output: 07/03/18 07/04/18 18:59 06:59 Intake Total 800 350 Balance 800 350 - Medications Medications: Current Medications Acetaminophen (Tylenol 325mg Tab) 650 mg PO Q6H PRN PRN Reason: MILD PAIN Amlodipine Besylate (Norvasc) 10 mg PO DAILY [facility] Last Admin: 07/03/18 14:15 Dose: 10 mg Aspirin (Aspirin Chewable) 81 mg PO DAILY [facility] Last Admin: 07/03/18 14:15 Dose: 81 mg Calcium Acetate (Phoslo) 1,334 mg PO ACTID [facility] Last Admin: 07/03/18 17:29 Dose: 1,334 mg Docusate Sodium (Colace) 100 mg PO BID [facility] Last Admin: 07/03/18 17:29 Dose: 100 mg Gabapentin (Neurontin) 100 mg PO TID [facility] Last Admin: 07/03/18 18:00 Dose: 100 mg Glimepiride (Amaryl) 4 mg PO DAILY [facility] Last Admin: 07/03/18 14:15 Dose: 4 mg Heparin Sodium (Porcine) (Heparin) 5,000 units SC Q8 [facility] Last Admin: 07/03/18 21:30 Dose: 5,000 units Piperacillin Sod/Tazobactam Sod (Zosyn 2.25 Gm Iv Premix) 2.25 gm in 50 mls @ 100 mls/hr IVPB Q12H [facility]; Protocol Last Admin: 07/03/18 22:05 Dose: 100 mls/hr Vancomycin HCl 1 gm/ Sodium (Chloride) 250 mls @ 166.7 mls/hr IVPB MWF [facility]; Protocol Last Admin: 07/03/18 14:39 Dose: 166.7 mls/hr Insulin Aspart (Novolog) 0 unit SC ACHS [facility]; Protocol Last Admin: 07/03/18 21:35 Dose: Not Given Insulin Glargine (Lantus) 35 unit SC [facility] Last Admin: 07/03/18 21:31 Dose: 35 units Lamotrigine (Lamictal) 25 mg PO BID [facility] Last Admin: 07/03/18 17:29 Dose: 25 mg Losartan Potassium (Cozaar) 100 mg PO DAILY [facility] Last Admin: 07/03/18 14:15 Dose: 100 mg Pantoprazole Sodium (Protonix Ec Tab) 40 mg PO DAILY [facility] Last Admin: 07/03/18 14:15 Dose: 40 mg Rosuvastatin Calcium (Crestor) 10 mg PO [facility] Last Admin: 07/03/18 21:30 Dose: 10 mg Silver Sulfadiazine (Silvadene 1% 20 Gm) 0 ea TOP DAILY [facility] Last Admin: 07/03/18 14:16 Dose: 1 applic Tamsulosin HCl (Flomax) 0.4 mg PO DAILY [facility] Last Admin: 07/03/18 14:14 Dose: 0.4 mg Vitamin B Complex/Vit C/Folic Acid (Nephro-Poly) 1 tab PO 0800 [facility] Last Admin: 07/03/18 08:43 Dose: 1 tab - Labs Labs: 07/02/18 07:06 07/02/18 07:06 - Constitutional Appears: Well, No Acute Distress, Chronically Ill - Head Exam Head Exam: NORMAL INSPECTION - Eye Exam Eye Exam: Normal appearance - ENT Exam ENT Exam: Normal Exam - Neck Exam Neck Exam: Normal Inspection - Respiratory Exam Respiratory Exam: Clear to Ausculation Bilateral, NORMAL BREATHING PATTERN - Cardiovascular Exam Cardiovascular Exam: REGULAR RHYTHM, Murmur - GI/Abdominal Exam GI & Abdominal Exam: Soft, Normal Bowel Sounds - Rectal Exam Rectal Exam: Deferred - Extremities Exam Additional comments: Right great toe wound dry, non tender. - Back Exam Back Exam: NORMAL INSPECTION - Neurological Exam Neurological Exam: Alert, Awake, Oriented x3 - Psychiatric Exam Psychiatric exam: Anxious Assessment and Plan (1) Cellulitis of foot, right Assessment & Plan: Much improved. Status: Acute (2) Uncontrolled insulin dependent diabetes mellitus Assessment & Plan: To adjust Insulin dosage. Status: Acute (3) Chronic kidney disease with end stage renal failure on dialysis Assessment & Plan: HD as per Nephrologists. Status: Acute
[2018-07-03] MEDS ORDERED: (Lantus) Insulin Glargine, Recombinant SC SCH (23:15)
[2018-07-04] MEDS: (Novolog) Insulin Aspart, Recombinant 100 u/ml 10 ml vial SC SCH ×4 (08:30→21:13)
[2018-07-04] MEDS: Multivitamin Vitamin B Complex (Nephro-Vite) Tab PO SCH (08:30)
[2018-07-04] MEDS: Pantoprazole 40 mg EC Tab PO SCH (09:31)
[2018-07-04] MEDS: Piperacill/Tazo 2.25gm in Dex 2.25 GM/50 ML BAG IVPB SCH ×2 (09:39→21:12)
--- NOTE | 2018-07-04 09:51 | CP.PCM.PN ---
Subjective - Date & Time of Evaluation Date of Evaluation: 07/04/18 Time of Evaluation: 09:49 - Subjective Subjective: Podiatry - Dr. Jenkins/Dr. Agosto 78M seen and evaluated at bedside for right hallux wound. Patient resting comfortably, NAD. No acute events overnight. No new complaints to right foot. Dressing clean/dry/intact. Denies N/V/F/D/C/SOB/HANSON/CP. Objective - Vital Signs/Intake and Output Vital Signs (last 24 hours): Temp Pulse Resp BP Pulse Ox 99.7 F H 74 20 148/75 99 07/04/18 08:00 07/04/18 08:00 07/04/18 08:00 07/04/18 08:00 07/04/18 08:00 Intake and Output: 07/04/18 07/04/18 06:59 18:59 Intake Total 710 Balance 710 - Medications Medications: Current Medications Acetaminophen (Tylenol 325mg Tab) 650 mg PO Q6H PRN PRN Reason: MILD PAIN Amlodipine Besylate (Norvasc) 10 mg PO DAILY [facility] Last Admin: 07/04/18 09:31 Dose: 10 mg Aspirin (Aspirin Chewable) 81 mg PO DAILY [facility] Last Admin: 07/04/18 09:31 Dose: 81 mg Calcium Acetate (Phoslo) 1,334 mg PO ACTID [facility] Last Admin: 07/04/18 08:30 Dose: 1,334 mg Docusate Sodium (Colace) 100 mg PO BID [facility] Last Admin: 07/04/18 09:31 Dose: 100 mg Gabapentin (Neurontin) 100 mg PO TID [facility] Last Admin: 07/04/18 09:30 Dose: 100 mg Glimepiride (Amaryl) 4 mg PO DAILY [facility] Last Admin: 07/04/18 09:31 Dose: 4 mg Heparin Sodium (Porcine) (Heparin) 5,000 units SC Q8 [facility] Last Admin: 07/04/18 05:51 Dose: 5,000 units Piperacillin Sod/Tazobactam Sod (Zosyn 2.25 Gm Iv Premix) 2.25 gm in 50 mls @ 100 mls/hr IVPB Q12H [facility]; Protocol Last Admin: 07/04/18 09:39 Dose: 100 mls/hr Vancomycin HCl 1 gm/ Sodium (Chloride) 250 mls @ 166.7 mls/hr IVPB MWF [facility]; Protocol Last Admin: 07/03/18 14:39 Dose: 166.7 mls/hr Insulin Aspart (Novolog) 0 unit SC ACHS [facility]; Protocol Last Admin: 07/04/18 08:30 Dose: 4 units Insulin Glargine (Lantus) 40 unit SC [facility] Lamotrigine (Lamictal) 25 mg PO BID [facility] Last Admin: 07/04/18 09:31 Dose: 25 mg Losartan Potassium (Cozaar) 100 mg PO DAILY [facility] Last Admin: 07/04/18 09:31 Dose: 100 mg Pantoprazole Sodium (Protonix Ec Tab) 40 mg PO DAILY [facility] Last Admin: 07/04/18 09:31 Dose: 40 mg Rosuvastatin Calcium (Crestor) 10 mg PO HS [facility] Last Admin: 07/03/18 21:30 Dose: 10 mg Silver Sulfadiazine (Silvadene 1% 20 Gm) 0 ea TOP DAILY [facility] Last Admin: 07/03/18 14:16 Dose: 1 applic Tamsulosin HCl (Flomax) 0.4 mg PO DAILY [facility] Last Admin: 07/04/18 09:30 Dose: 0.4 mg Vitamin B Complex/Vit C/Folic Acid (Nephro-Poly) 1 tab PO 0800 [facility] Last Admin: 07/04/18 08:30 Dose: 1 tab - Labs Labs: 07/02/18 07:06 07/02/18 07:06 - Constitutional Appears: Well, Non-toxic, No Acute Distress - Extremities Exam Additional comments: Bilateral LE exam: VASC: DP/PT pulses are palpable 2/4, Cap refill time: < 3 sec to all digits, Temp gradient: warm to cool from proximal to distal, no pitting or non-pitting edema noted to bilateral LE DERM: Superficial epidermal lysis with minimal necrotic changes at the distal tip of the right hallux with circumferential minimal localized erythema, no a ctive drainage, no mal-odor, no purulence, no probe to bone, no tunneling, no tracking NEURO: Protective sensation mildly diminished ORTHO: no pain during palpation or AROM or PROM of the right hallux at the MTPJ, MMT: 5/5 in all 4 direction at the ankle joint. - Neurological Exam Neurological Exam: Alert, Awake, Oriented x3 - Psychiatric Exam Psychiatric exam: Normal Affect, Normal Mood Assessment and Plan - Assessment and Plan (Free Text) Assessment: 78 year old male with right hallux superficial ulcer - non-infected (romo 1) Plan: Patient seen and evaluated Discussed with attending, Dr. 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 Jenkins Podiatry will continue to follow
[2018-07-04] MEDS: Silver Sulfadiazine 1% Cream (20 gm) TOP SCH (10:32)
--- NOTE | 2018-07-04 15:43 | CP.PCM.PN ---
Subjective - Date & Time of Evaluation Date of Evaluation: 07/04/18 Time of Evaluation: 15:43 - Subjective Subjective: Nephrology Consultation Note: Assessment: Stable Rt foot cellulitis Diabetic chronic Kidney Disease (E11.22) Hypertensive Chronic Kidney Disease (I12.0) End stage renal disease (N18.6) dependence on hemodialysis (Z99.2) (MWF) via AVF Anemia (D64.9), Hyperphosphatemia (E83.39), Secondary Hyperparathyroidism (E21.1), HTN (I12.0) Plan: Will plan for HD MWF schedule as ordered. Continue with Nephrovite 1 tab/day. PRBC as needed for anemia. not on LESLI with dialysis as last Hb 11 Continue with phos binders, last phos level: check BP control with meds as ordered. Patient on RAAS ish Glycemic control, Dialysis consistent diet Further work up/management as per primary team Dose meds/antibiotics (if needed) for ESRD status. Avoid fleets enema/magnesium based laxatives. ID, podiatry follow up appreciated Thanks for allowing me to participate in care of your patient. Will follow patient with you. Please call if any Qs Dr Edwardo Valenzuela Office: [phone] Chief Complaint;Rt toe infection HPI: Pt is a 78 year old male with PMHx of DM, HTN, HLD, ESRD on dialysis (MWF), CAD s/p CABG, AVR, BPH and Bipolar disorder presents to ED complaining of redness, swelling of the right big toe and admitted for cellulitis. Renal consult requested for ESRD management. last HD friday. otherwise feels usual health ROS: Cardiovascular: No chest pain. Pulmonary: No shortness of breath Gastrointestinal: denies abdominal pain No nausea. No vomiting. Genitourinary: No pain while urinating. Denies blood in urine. All other negative except as mentioned in HPI Physical Examination: seen during HD General Appearance: Comfortable, in no acute respiratory distress, co-operative . Vitals reviewed and noted as below Head; Atraumatic, normocephalic ENT: no ulcers no thrush. Tongue is midline. Oropharynx: no rash or ulcers. EYES: Pupils are equal, round and reactive to light accommodation. Eye muscles and extraocular movement intact. Sclera is anicteric. Neck; supple no lymphadenopathy, no thyromegaly or bruit Lungs: Normal respiratory rate/effort. Breath sounds bilateral equal and clear Heart: Normal rate. s1s2 normal. No rub or gallop. Extremities: no edema. No varicose veins. Rt foot dressed Neurological: Patient is alert, awake and oriented to person, place and time. No focal deficit. Strength bilateral appropriate and equal Skin: Warm and dry. Normal turgor. No rash. Palpitation: Normal elasticity for age Abdomen: Abdomen is soft. Bowel sounds +. There is no abdominal tenderness, no guarding/rigidity or organomegaly Psych: normal insight and normal affect/mood MSK: no joint tenderness or swelling. Digits and nails normal, no deformity : kidney or bladder not palpable Access: AVF Labs/imaging reviewed. Past medical history, past surgical history, family history, social history, allergy reviewed and noted as below Family Hx: no hx of CKD. Non contributory Objective - Vital Signs/Intake and Output Vital Signs (last 24 hours): Temp Pulse Resp BP Pulse Ox 99.7 F H 74 20 148/75 99 07/04/18 08:00 07/04/18 08:00 07/04/18 08:00 07/04/18 08:00 07/04/18 08:00 Intake and Output: 07/04/18 07/04/18 06:59 18:59 Intake Total 710 450 Balance 710 450 - Medications Medications: Current Medications Acetaminophen (Tylenol 325mg Tab) 650 mg PO Q6H PRN PRN Reason: MILD PAIN Amlodipine Besylate (Norvasc) 10 mg PO DAILY [facility] Last Admin: 07/04/18 09:31 Dose: 10 mg Aspirin (Aspirin Chewable) 81 mg PO DAILY [facility] Last Admin: 07/04/18 09:31 Dose: 81 mg Calcium Acetate (Phoslo) 1,334 mg PO ACTID [facility] Last Admin: 07/04/18 12:31 Dose: 1,334 mg Docusate Sodium (Colace) 100 mg PO BID [facility] Last Admin: 07/04/18 09:31 Dose: 100 mg Gabapentin (Neurontin) 100 mg PO TID [facility] Last Admin: 07/04/18 14:40 Dose: 100 mg Glimepiride (Amaryl) 4 mg PO DAILY [facility] Last Admin: 07/04/18 09:31 Dose: 4 mg Heparin Sodium (Porcine) (Heparin) 5,000 units SC Q8 [facility] Last Admin: 07/04/18 14:40 Dose: 5,000 units Piperacillin Sod/Tazobactam Sod (Zosyn 2.25 Gm Iv Premix) 2.25 gm in 50 mls @ 100 mls/hr IVPB Q12H [facility]; Protocol Last Admin: 07/04/18 09:39 Dose: 100 mls/hr Vancomycin HCl 1 gm/ Sodium (Chloride) 250 mls @ 166.7 mls/hr IVPB MWF [facility]; Protocol Last Admin: 07/03/18 14:39 Dose: 166.7 mls/hr Insulin Aspart (Novolog) 0 unit SC ACHS [facility]; Protocol Last Admin: 07/04/18 12:31 Dose: 4 units Insulin Glargine (Lantus) 40 unit SC HS [facility] Lamotrigine (Lamictal) 25 mg PO BID [facility] Last Admin: 07/04/18 09:31 Dose: 25 mg Losartan Potassium (Cozaar) 100 mg PO DAILY [facility] Last Admin: 07/04/18 09:31 Dose: 100 mg Pantoprazole Sodium (Protonix Ec Tab) 40 mg PO DAILY [facility] Last Admin: 07/04/18 09:31 Dose: 40 mg Rosuvastatin Calcium (Crestor) 10 mg PO HS [facility] Last Admin: 07/03/18 21:30 Dose: 10 mg Silver Sulfadiazine (Silvadene 1% 20 Gm) 0 ea TOP DAILY [facility] Last Admin: 07/04/18 10:32 Dose: 1 applic Tamsulosin HCl (Flomax) 0.4 mg PO DAILY [facility] Last Admin: 07/04/18 09:30 Dose: 0.4 mg Vitamin B Complex/Vit C/Folic Acid (Nephro-Poly) 1 tab PO 0800 [facility] Last Admin: 07/04/18 08:30 Dose: 1 tab - Labs Labs: 07/02/18 07:06 07/02/18 07:06
[2018-07-05] MEDS: (Novolog) Insulin Aspart, Recombinant 100 u/ml 10 ml vial SC SCH ×4 (08:15→21:48)
[2018-07-05] MEDS: Multivitamin Vitamin B Complex (Nephro-Vite) Tab PO SCH (08:15)
[2018-07-05] MEDS ORDERED: (Lantus) Insulin Glargine, Recombinant SC SCH (09:44)
--- NOTE | 2018-07-05 09:57 | CP.PCM.PN ---
Subjective - Date & Time of Evaluation Date of Evaluation: 07/05/18 Time of Evaluation: 09:57 - Subjective Subjective: Nephrology Consultation Note: Assessment: Stable Rt foot cellulitis Diabetic chronic Kidney Disease (E11.22) Hypertensive Chronic Kidney Disease (I12.0) End stage renal disease (N18.6) dependence on hemodialysis (Z99.2) (MWF) via AVF Anemia (D64.9), Hyperphosphatemia (E83.39), Secondary Hyperparathyroidism (E21.1), HTN (I12.0) Plan: Will plan for HD MWF schedule as ordered. Continue with Nephrovite 1 tab/day. PRBC as needed for anemia. not on LESLI with dialysis as last Hb 11 Continue with phos binders, last phos level: check BP control with meds as ordered. Patient on RAAS ish Glycemic control, Dialysis consistent diet Further work up/management as per primary team Dose meds/antibiotics (if needed) for ESRD status. Avoid fleets enema/magnesium based laxatives. ID, podiatry follow up appreciated Thanks for allowing me to participate in care of your patient. Will follow patient with you. Please call if any Qs Dr Edwardo Valenzuela Office: [phone] Chief Complaint;Rt toe infection HPI: Pt is a 78 year old male with PMHx of DM, HTN, HLD, ESRD on dialysis (MWF), CAD s/p CABG, AVR, BPH and Bipolar disorder presents to ED complaining of redness, swelling of the right big toe and admitted for cellulitis. Renal consult requested for ESRD management. last HD friday. otherwise feels usual health ROS: Cardiovascular: No chest pain. Pulmonary: No shortness of breath Gastrointestinal: denies abdominal pain No nausea. No vomiting. Genitourinary: No pain while urinating. Denies blood in urine. All other negative except as mentioned in HPI Physical Examination: General Appearance: Comfortable, in no acute respiratory distress, co-operative . Vitals reviewed and noted as below Head; Atraumatic, normocephalic ENT: no ulcers no thrush. Tongue is midline. Oropharynx: no rash or ulcers. EYES: Pupils are equal, round and reactive to light accommodation. Eye muscles and extraocular movement intact. Sclera is anicteric. Neck; supple no lymphadenopathy, no thyromegaly or bruit Lungs: Normal respiratory rate/effort. Breath sounds bilateral equal and clear Heart: Normal rate. s1s2 normal. No rub or gallop. Extremities: no edema. No varicose veins. Rt foot dressed Neurological: Patient is alert, awake and oriented to person, place and time. No focal deficit. Strength bilateral appropriate and equal Skin: Warm and dry. Normal turgor. No rash. Palpitation: Normal elasticity for age Abdomen: Abdomen is soft. Bowel sounds +. There is no abdominal tenderness, no guarding/rigidity or organomegaly Psych: normal insight and normal affect/mood MSK: no joint tenderness or swelling. Digits and nails normal, no deformity : kidney or bladder not palpable Access: AVF Labs/imaging reviewed. Past medical history, past surgical history, family history, social history, allergy reviewed and noted as below Family Hx: no hx of CKD. Non contributory Objective - Vital Signs/Intake and Output Vital Signs (last 24 hours): Temp Pulse Resp BP Pulse Ox 98.1 F 63 20 155/64 H 95 07/05/18 08:21 07/05/18 08:21 07/05/18 08:21 07/05/18 08:21 07/05/18 08:21 Intake and Output: 07/05/18 07/05/18 06:59 18:59 Intake Total 400 120 Balance 400 120 - Medications Medications: Current Medications Acetaminophen (Tylenol 325mg Tab) 650 mg PO Q6H PRN PRN Reason: MILD PAIN Amlodipine Besylate (Norvasc) 10 mg PO DAILY [facility] Last Admin: 07/04/18 09:31 Dose: 10 mg Aspirin (Aspirin Chewable) 81 mg PO DAILY [facility] Last Admin: 07/04/18 09:31 Dose: 81 mg Calcium Acetate (Phoslo) 1,334 mg PO ACTID [facility] Last Admin: 07/05/18 08:15 Dose: 1,334 mg Docusate Sodium (Colace) 100 mg PO BID [facility] Last Admin: 07/04/18 17:30 Dose: 100 mg Gabapentin (Neurontin) 100 mg PO TID [facility] Last Admin: 07/04/18 17:30 Dose: 100 mg Glimepiride (Amaryl) 4 mg PO DAILY [facility] Last Admin: 07/04/18 09:31 Dose: 4 mg Heparin Sodium (Porcine) (Heparin) 5,000 units SC Q8 [facility] Last Admin: 07/05/18 05:22 Dose: 5,000 units Piperacillin Sod/Tazobactam Sod (Zosyn 2.25 Gm Iv Premix) 2.25 gm in 50 mls @ 100 mls/hr IVPB Q12H [facility]; Protocol Last Admin: 07/04/18 21:12 Dose: 100 mls/hr Vancomycin HCl 1 gm/ Sodium (Chloride) 250 mls @ 166.7 mls/hr IVPB MWF [facility]; Protocol Last Admin: 07/03/18 14:39 Dose: 166.7 mls/hr Insulin Aspart (Novolog) 0 unit SC ACHS [facility]; Protocol Last Admin: 07/05/18 08:15 Dose: 10 units Insulin Glargine (Lantus) 45 unit SC HS [facility] Lamotrigine (Lamictal) 25 mg PO BID [facility] Last Admin: 07/04/18 17:30 Dose: 25 mg Losartan Potassium (Cozaar) 100 mg PO DAILY [facility] Last Admin: 07/04/18 09:31 Dose: 100 mg Pantoprazole Sodium (Protonix Ec Tab) 40 mg PO DAILY [facility] Last Admin: 07/04/18 09:31 Dose: 40 mg Rosuvastatin Calcium (Crestor) 10 mg PO HS [facility] Last Admin: 07/04/18 21:12 Dose: 10 mg Silver Sulfadiazine (Silvadene 1% 20 Gm) 0 ea TOP DAILY [facility] Last Admin: 07/04/18 10:32 Dose: 1 applic Tamsulosin HCl (Flomax) 0.4 mg PO DAILY [facility] Last Admin: 07/04/18 09:30 Dose: 0.4 mg Vitamin B Complex/Vit C/Folic Acid (Nephro-Poly) 1 tab PO 0800 [facility] Last Admin: 07/05/18 08:15 Dose: 1 tab - Labs Labs: 07/02/18 07:06 07/02/18 07:06
--- NOTE | 2018-07-05 10:01 | CP.PCM.PN ---
Subjective - Date & Time of Evaluation Date of Evaluation: 07/04/18 Time of Evaluation: 19:00 - Subjective Subjective: Patient has no complaint. Right great toe wound dry. Objective - Vital Signs/Intake and Output Vital Signs (last 24 hours): Temp Pulse Resp BP Pulse Ox 98.1 F 63 20 155/64 H 95 07/05/18 08:21 07/05/18 08:21 07/05/18 08:21 07/05/18 08:21 07/05/18 08:21 Intake and Output: 07/05/18 07/05/18 06:59 18:59 Intake Total 400 120 Balance 400 120 - Medications Medications: Current Medications Acetaminophen (Tylenol 325mg Tab) 650 mg PO Q6H PRN PRN Reason: MILD PAIN Amlodipine Besylate (Norvasc) 10 mg PO DAILY [facility] Last Admin: 07/04/18 09:31 Dose: 10 mg Aspirin (Aspirin Chewable) 81 mg PO DAILY [facility] Last Admin: 07/04/18 09:31 Dose: 81 mg Calcium Acetate (Phoslo) 1,334 mg PO ACTID [facility] Last Admin: 07/05/18 08:15 Dose: 1,334 mg Docusate Sodium (Colace) 100 mg PO BID [facility] Last Admin: 07/04/18 17:30 Dose: 100 mg Gabapentin (Neurontin) 100 mg PO TID [facility] Last Admin: 07/04/18 17:30 Dose: 100 mg Glimepiride (Amaryl) 4 mg PO DAILY [facility] Last Admin: 07/04/18 09:31 Dose: 4 mg Heparin Sodium (Porcine) (Heparin) 5,000 units SC Q8 [facility] Last Admin: 07/05/18 05:22 Dose: 5,000 units Piperacillin Sod/Tazobactam Sod (Zosyn 2.25 Gm Iv Premix) 2.25 gm in 50 mls @ 100 mls/hr IVPB Q12H [facility]; Protocol Last Admin: 07/04/18 21:12 Dose: 100 mls/hr Vancomycin HCl 1 gm/ Sodium (Chloride) 250 mls @ 166.7 mls/hr IVPB MWF [facility]; Protocol Last Admin: 07/03/18 14:39 Dose: 166.7 mls/hr Insulin Aspart (Novolog) 0 unit SC ACHS [facility]; Protocol Last Admin: 07/05/18 08:15 Dose: 10 units Insulin Glargine (Lantus) 45 unit SC [facility] Lamotrigine (Lamictal) 25 mg PO BID [facility] Last Admin: 07/04/18 17:30 Dose: 25 mg Losartan Potassium (Cozaar) 100 mg PO DAILY [facility] Last Admin: 07/04/18 09:31 Dose: 100 mg Pantoprazole Sodium (Protonix Ec Tab) 40 mg PO DAILY [facility] Last Admin: 07/04/18 09:31 Dose: 40 mg Rosuvastatin Calcium (Crestor) 10 mg PO HS [facility] Last Admin: 07/04/18 21:12 Dose: 10 mg Silver Sulfadiazine (Silvadene 1% 20 Gm) 0 ea TOP DAILY [facility] Last Admin: 07/04/18 10:32 Dose: 1 applic Tamsulosin HCl (Flomax) 0.4 mg PO DAILY [facility] Last Admin: 07/04/18 09:30 Dose: 0.4 mg Vitamin B Complex/Vit C/Folic Acid (Nephro-Poly) 1 tab PO 0800 [facility] Last Admin: 07/05/18 08:15 Dose: 1 tab - Labs Labs: 07/02/18 07:06 07/02/18 07:06 - Constitutional Appears: Well, Chronically Ill - Head Exam Head Exam: NORMOCEPHALIC - Eye Exam Eye Exam: Normal appearance Pupil Exam: NORMAL ACCOMODATION - ENT Exam ENT Exam: Normal Exam - Neck Exam Neck Exam: Normal Inspection - Respiratory Exam Respiratory Exam: Clear to Ausculation Bilateral, NORMAL BREATHING PATTERN - Cardiovascular Exam Cardiovascular Exam: REGULAR RHYTHM, Murmur - GI/Abdominal Exam GI & Abdominal Exam: Soft, Normal Bowel Sounds - Rectal Exam Rectal Exam: Deferred - Extremities Exam Additional comments: Right great toe wound dry. - Back Exam Back Exam: NORMAL INSPECTION - Neurological Exam Neurological Exam: Alert, Awake, Oriented x3 - Psychiatric Exam Psychiatric exam: Anxious Assessment and Plan (1) Cellulitis of foot, right Assessment & Plan: On antibiotics Vanco and Ancef IV. Status: Acute (2) Uncontrolled insulin dependent diabetes mellitus Status: Acute (3) Chronic kidney disease with end stage renal failure on dialysis Assessment & Plan: Hemodialysis as per Nephrologists. Status: Acute
[2018-07-05] MEDS: Piperacill/Tazo 2.25gm in Dex 2.25 GM/50 ML BAG IVPB SCH ×2 (10:30→21:47)
[2018-07-05] MEDS: Pantoprazole 40 mg EC Tab PO SCH (10:55)
[2018-07-05] MEDS: Silver Sulfadiazine 1% Cream (20 gm) TOP SCH (10:58)
--- NOTE | 2018-07-05 11:56 | CP.PCM.PN ---
Subjective - Date & Time of Evaluation Date of Evaluation: 07/05/18 Time of Evaluation: 11:56 - Subjective Subjective: Podiatry - Dr. Jenkins/Dr. Agosto 78M seen and examined this AM for right hallux wound. Patient resting comfortably, NAD. No acute events overnight. No new complaints to right foot; denies any pain to wound site. Dressing clean/dry/intact. Ambulating w/o issues. Denies N/V/F/D/C/SOB/HANSON/CP. Objective - Vital Signs/Intake and Output Vital Signs (last 24 hours): Temp Pulse Resp BP Pulse Ox 98.1 F 63 20 155/64 H 95 07/05/18 08:21 07/05/18 08:21 07/05/18 08:21 07/05/18 08:21 07/05/18 08:21 Intake and Output: 07/05/18 07/05/18 06:59 18:59 Intake Total 400 120 Balance 400 120 - Medications Medications: Current Medications Acetaminophen (Tylenol 325mg Tab) 650 mg PO Q6H PRN PRN Reason: MILD PAIN Amlodipine Besylate (Norvasc) 10 mg PO DAILY [facility] Last Admin: 07/05/18 10:54 Dose: 10 mg Aspirin (Aspirin Chewable) 81 mg PO DAILY [facility] Last Admin: 07/05/18 10:56 Dose: 81 mg Calcium Acetate (Phoslo) 1,334 mg PO ACTID [facility] Last Admin: 07/05/18 08:15 Dose: 1,334 mg Docusate Sodium (Colace) 100 mg PO BID [facility] Last Admin: 07/05/18 10:56 Dose: 100 mg Gabapentin (Neurontin) 100 mg PO TID [facility] Last Admin: 07/05/18 10:55 Dose: 100 mg Glimepiride (Amaryl) 4 mg PO DAILY [facility] Last Admin: 07/05/18 10:56 Dose: 4 mg Heparin Sodium (Porcine) (Heparin) 5,000 units SC Q8 [facility] Last Admin: 07/05/18 05:22 Dose: 5,000 units Piperacillin Sod/Tazobactam Sod (Zosyn 2.25 Gm Iv Premix) 2.25 gm in 50 mls @ 100 mls/hr IVPB Q12H [facility]; Protocol Last Admin: 07/05/18 10:30 Dose: 100 mls/hr Vancomycin HCl 1 gm/ Sodium (Chloride) 250 mls @ 166.7 mls/hr IVPB MWF [facility]; Protocol Last Admin: 07/03/18 14:39 Dose: 166.7 mls/hr Insulin Aspart (Novolog) 0 unit SC ACHS [facility]; Protocol Last Admin: 07/05/18 08:15 Dose: 10 units Insulin Glargine (Lantus) 45 unit SC [facility] Lamotrigine (Lamictal) 25 mg PO BID [facility] Last Admin: 07/05/18 10:55 Dose: 25 mg Losartan Potassium (Cozaar) 100 mg PO DAILY [facility] Last Admin: 07/05/18 10:55 Dose: 100 mg Pantoprazole Sodium (Protonix Ec Tab) 40 mg PO DAILY [facility] Last Admin: 07/05/18 10:55 Dose: 40 mg Rosuvastatin Calcium (Crestor) 10 mg PO HS [facility] Last Admin: 07/04/18 21:12 Dose: 10 mg Silver Sulfadiazine (Silvadene 1% 20 Gm) 0 ea TOP DAILY [facility] Last Admin: 07/05/18 10:58 Dose: 1 applic Tamsulosin HCl (Flomax) 0.4 mg PO DAILY [facility] Last Admin: 07/05/18 10:55 Dose: 0.4 mg Vitamin B Complex/Vit C/Folic Acid (Nephro-Poly) 1 tab PO 0800 [facility] Last Admin: 07/05/18 08:15 Dose: 1 tab - Labs Labs: 07/02/18 07:06 07/02/18 07:06 - Constitutional Appears: Well, Non-toxic, No Acute Distress - Extremities Exam Additional comments: Bilateral LE exam: VASC: DP/PT pulses are palpable 2/4, Cap refill time: < 3 sec to all digits, Temp gradient: warm to cool from proximal to distal with no significant increase in warmth to right hallux, nonpitting edema noted to right hallux decreasing. DERM: Superficial epidermal lysis with minimal necrotic changes at the distal tip of the right hallux with circumferential minimal localized erythema- resolving, no active drainage, no malodor, no purulence, no probe to bone, no tunneling, no tracking NEURO: Protective sensation mildly diminished ORTHO: no pain during palpation or AROM or PROM of the right hallux at the MTPJ, MMT: 5/5 in all 4 direction at the ankle joint. - Neurological Exam Neurological Exam: Alert, Awake, Oriented x3 - Psychiatric Exam Psychiatric exam: Normal Affect, Normal Mood Assessment and Plan - Assessment and Plan (Free Text) Assessment: 78M with right hallux superficial ulcer - non-infected (romo 1) Plan: Patient seen and evaluated Discussed with attending, Dr. 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 Jenkins in office Podiatry will continue to follow
--- NOTE | 2018-07-05 18:23 | CP.PCM.PN ---
Subjective - Date & Time of Evaluation Date of Evaluation: 07/05/18 Time of Evaluation: 09:00 - Subjective Subjective: seen on roiunds iv rx renewed Objective - Vital Signs/Intake and Output Vital Signs (last 24 hours): Temp Pulse Resp BP Pulse Ox 98.1 F 72 20 160/67 H 100 07/05/18 16:00 07/05/18 16:00 07/05/18 16:00 07/05/18 16:00 07/05/18 16:00 Intake and Output: 07/05/18 07/05/18 06:59 18:59 Intake Total 400 570 Balance 400 570 - Medications Medications: Current Medications Acetaminophen (Tylenol 325mg Tab) 650 mg PO Q6H PRN PRN Reason: MILD PAIN Amlodipine Besylate (Norvasc) 10 mg PO DAILY [facility] Last Admin: 07/05/18 10:54 Dose: 10 mg Aspirin (Aspirin Chewable) 81 mg PO DAILY [facility] Last Admin: 07/05/18 10:56 Dose: 81 mg Calcium Acetate (Phoslo) 1,334 mg PO ACTID [facility] Last Admin: 07/05/18 17:43 Dose: 1,334 mg Docusate Sodium (Colace) 100 mg PO BID [facility] Last Admin: 07/05/18 17:43 Dose: 100 mg Gabapentin (Neurontin) 100 mg PO TID [facility] Last Admin: 07/05/18 17:44 Dose: 100 mg Glimepiride (Amaryl) 4 mg PO DAILY [facility] Last Admin: 07/05/18 10:56 Dose: 4 mg Heparin Sodium (Porcine) (Heparin) 5,000 units SC Q8 [facility] Last Admin: 07/05/18 14:47 Dose: 5,000 units Piperacillin Sod/Tazobactam Sod (Zosyn 2.25 Gm Iv Premix) 2.25 gm in 50 mls @ 100 mls/hr IVPB Q12H [facility]; Protocol Last Admin: 07/05/18 10:30 Dose: 100 mls/hr Vancomycin HCl 1 gm/ Sodium (Chloride) 250 mls @ 166.7 mls/hr IVPB MWF [facility]; Protocol Last Admin: 07/03/18 14:39 Dose: 166.7 mls/hr Insulin Aspart (Novolog) 0 unit SC ACHS [facility]; Protocol Last Admin: 07/05/18 17:38 Dose: 6 units Insulin Glargine (Lantus) [address] [facility] Lamotrigine (Lamictal) 25 mg PO BID [facility] Last Admin: 07/05/18 18:06 Dose: 25 mg Losartan Potassium (Cozaar) 100 mg PO DAILY [facility] Last Admin: 07/05/18 10:55 Dose: 100 mg Pantoprazole Sodium (Protonix Ec Tab) 40 mg PO DAILY [facility] Last Admin: 07/05/18 10:55 Dose: 40 mg Rosuvastatin Calcium (Crestor) 10 mg PO HS [facility] Last Admin: 07/04/18 21:12 Dose: 10 mg Silver Sulfadiazine (Silvadene 1% 20 Gm) 0 ea TOP DAILY [facility] Last Admin: 07/05/18 10:58 Dose: 1 applic Tamsulosin HCl (Flomax) 0.4 mg PO DAILY [facility] Last Admin: 07/05/18 10:55 Dose: 0.4 mg Vitamin B Complex/Vit C/Folic Acid (Nephro-Poly) 1 tab PO 0800 [facility] Last Admin: 07/05/18 08:15 Dose: 1 tab - Labs Labs: 07/02/18 07:06 07/02/18 07:06 - Constitutional Appears: Non-toxic, Chronically Ill - Head Exam Head Exam: NORMOCEPHALIC - ENT Exam ENT Exam: Mucous Membranes Dry - Respiratory Exam Respiratory Exam: Clear to Ausculation Bilateral - Cardiovascular Exam Cardiovascular Exam: REGULAR RHYTHM - GI/Abdominal Exam GI & Abdominal Exam: Soft - Rectal Exam Rectal Exam: Deferred - Exam Exam: NORMAL INSPECTION - Extremities Exam Additional comments: great toe with dry wound free of pus - Neurological Exam Neurological Exam: Alert, Awake - Psychiatric Exam Psychiatric exam: Normal Mood - Skin Skin Exam: Dry Assessment and Plan (1) Cellulitis of foot, right Status: Acute (2) Ejlgi-bs-ertthhe kidney injury Status: Acute - Assessment and Plan (Free Text) Assessment: improving possible d/c on PO antibiotics with local wound care
[2018-07-06] MEDS: (Novolog) Insulin Aspart, Recombinant 100 u/ml 10 ml vial SC SCH ×2 (08:29→13:15)
[2018-07-06] MEDS: Multivitamin Vitamin B Complex (Nephro-Vite) Tab PO SCH (08:29)
[2018-07-06] MEDS: Pantoprazole 40 mg EC Tab PO SCH (11:14)
[2018-07-06] MEDS: Silver Sulfadiazine 1% Cream (20 gm) TOP SCH (11:14)
[2018-07-06] MEDS: Piperacill/Tazo 2.25gm in Dex 2.25 GM/50 ML BAG IVPB SCH (11:14)
--- NOTE | 2018-07-06 13:44 | CP.PCM.PN ---
Subjective - Date & Time of Evaluation Date of Evaluation: 07/06/18 Time of Evaluation: 13:42 - Subjective Subjective: Podiatry Progress Note - Dr. Jenkins/Dr. Agosto 78M seen and examined for right hallux wound. Patient resting comfortably, NAD. No acute events overnight. No new complaints to right foot; denies any pain to wound site. Dressing clean/dry/intact. Denies N/V/F/D/C/SOB/HANSON/CP. Objective - Vital Signs/Intake and Output Vital Signs (last 24 hours): Temp Pulse Resp BP Pulse Ox 98 F 83 16 99/53 L 98 07/06/18 12:34 07/06/18 12:34 07/06/18 12:34 07/06/18 12:20 07/06/18 12:34 Intake and Output: 07/06/18 07/06/18 06:59 18:59 Intake Total 650 Output Total 600 Balance 50 - Medications Medications: Current Medications Acetaminophen (Tylenol 325mg Tab) 650 mg PO Q6H PRN PRN Reason: MILD PAIN Amlodipine Besylate (Norvasc) 10 mg PO DAILY [facility] Last Admin: 07/06/18 11:13 Dose: Not Given Aspirin (Aspirin Chewable) 81 mg PO DAILY [facility] Last Admin: 07/06/18 11:12 Dose: Not Given Calcium Acetate (Phoslo) 1,334 mg PO ACTID [facility] Last Admin: 07/06/18 13:15 Dose: 1,334 mg Docusate Sodium (Colace) 100 mg PO BID [facility] Last Admin: 07/06/18 11:13 Dose: Not Given Gabapentin (Neurontin) 100 mg PO TID [facility] Last Admin: 07/06/18 11:13 Dose: Not Given Glimepiride (Amaryl) 4 mg PO DAILY [facility] Last Admin: 07/06/18 11:12 Dose: Not Given Heparin Sodium (Porcine) (Heparin) 5,000 units SC Q8 [facility] Last Admin: 07/06/18 06:11 Dose: 5,000 units Piperacillin Sod/Tazobactam Sod (Zosyn 2.25 Gm Iv Premix) 2.25 gm in 50 mls @ 100 mls/hr IVPB Q12H [facility]; Protocol Last Admin: 07/06/18 11:14 Dose: Not Given Vancomycin HCl 1 gm/ Sodium (Chloride) 250 mls @ 166.7 mls/hr IVPB MWF [facility]; Protocol Last Admin: 07/06/18 11:14 Dose: Not Given Insulin Aspart (Novolog) 0 unit SC ACHS [facility]; Protocol Last Admin: 07/06/18 13:15 Dose: 4 units Insulin Glargine (Lantus) 45 unit SC HS [facility] Last Admin: 07/05/18 21:46 Dose: 45 units Lamotrigine (Lamictal) 25 mg PO BID [facility] Last Admin: 07/06/18 11:13 Dose: Not Given Losartan Potassium (Cozaar) 100 mg PO DAILY [facility] Last Admin: 07/06/18 11:13 Dose: Not Given Pantoprazole Sodium (Protonix Ec Tab) 40 mg PO DAILY [facility] Last Admin: 07/06/18 11:14 Dose: Not Given Rosuvastatin Calcium (Crestor) 10 mg PO HS [facility] Last Admin: 07/05/18 21:45 Dose: 10 mg Silver Sulfadiazine (Silvadene 1% 20 Gm) 0 ea TOP DAILY [facility] Last Admin: 07/06/18 11:14 Dose: Not Given Tamsulosin HCl (Flomax) 0.4 mg PO DAILY [facility] Last Admin: 07/06/18 11:13 Dose: Not Given Vitamin B Complex/Vit C/Folic Acid (Nephro-Poly) 1 tab PO 0800 [facility] Last Admin: 07/06/18 08:29 Dose: 1 tab - Labs Labs: 07/02/18 07:06 07/02/18 07:06 - Constitutional Appears: Well, Non-toxic, No Acute Distress - Extremities Exam Additional comments: Bilateral LE exam: VASC: DP/PT pulses are palpable 2/4, Cap refill time: < 3 sec to all digits, Temp gradient: warm to cool from proximal to distal with no significant increase in warmth to right hallux, nonpitting edema noted to right hallux decreasing. DERM: Superficial epidermal lysis with minimal necrotic changes at the distal ti p of the right hallux with circumferential minimal localized erythema-resolving, no active drainage, no malodor, no purulence, no probe to bone, no tunneling, no tracking NEURO: Protective sensation mildly diminished ORTHO: no pain during palpation or AROM or PROM of the right hallux at the MTPJ, MMT: 5/5 in all 4 direction at the ankle joint. - Neurological Exam Neurological Exam: Alert, Awake, Oriented x3 - Psychiatric Exam Psychiatric exam: Normal Affect, Normal Mood Assessment and Plan - Assessment and Plan (Free Text) Assessment: 78M with right hallux superficial ulcer - non-infected (romo 1) Plan: Patient seen and evaluated Discussed with attending, Dr. Jenkins VSAlana Right foot x-ray: No evidence of cortical erosion or periosteal reaction - no evidence of OM; no soft tissue emphysema Continue local wound care: ALYSA rodriguez Right foot wound cultures reveal light growth of coagulase neg staph and beta hemolytic strep group B -IV abx per ID: Vancomycin, Zosyn Patient is stable from podiatry standpoint - Upon discharge, please follow up with patient's interlibrary loan specialist or Dr. Jenkins in office Podiatry will continue to follow
--- NOTE | 2018-07-06 15:10 | CP.PCM.PN ---
Subjective - Date & Time of Evaluation Date of Evaluation: 07/06/18 Time of Evaluation: 15:09 - Subjective Subjective: Nephrology Consultation Note: Assessment: Stable Rt foot cellulitis Diabetic chronic Kidney Disease (E11.22) Hypertensive Chronic Kidney Disease (I12.0) End stage renal disease (N18.6) dependence on hemodialysis (Z99.2) (MWF) via AVF Anemia (D64.9), Hyperphosphatemia (E83.39), Secondary Hyperparathyroidism (E21.1), HTN (I12.0) Plan: Will plan for HD MWF schedule as ordered. Continue with Nephrovite 1 tab/day. PRBC as needed for anemia. not on LESLI with dialysis as last Hb 11 Continue with phos binders, last phos level: check BP control with meds as ordered. Patient on RAAS ish Glycemic control, Dialysis consistent diet Further work up/management as per primary team Dose meds/antibiotics (if needed) for ESRD status. Avoid fleets enema/magnesium based laxatives. ID, podiatry follow up appreciated pt stable for d/c from renal perspective. abx as per ID Thanks for allowing me to participate in care of your patient. Will follow patient with you. Please call if any Qs Dr Edwardo Valenzuela Office: [phone] Chief Complaint;Rt toe infection HPI: Pt is a 78 year old male with PMHx of DM, HTN, HLD, ESRD on dialysis (MWF), CAD s/p CABG, AVR, BPH and Bipolar disorder presents to ED complaining of redness, swelling of the right big toe and admitted for cellulitis. Renal consult requested for ESRD management. last HD friday. otherwise feels usual health ROS: Cardiovascular: No chest pain. Pulmonary: No shortness of breath Gastrointestinal: denies abdominal pain No nausea. No vomiting. Genitourinary: No pain while urinating. Denies blood in urine. All other negative except as mentioned in HPI Physical Examination: General Appearance: Comfortable, in no acute respiratory distress, co-operative . Vitals reviewed and noted as below Head; Atraumatic, normocephalic ENT: no ulcers no thrush. Tongue is midline. Oropharynx: no rash or ulcers. EYES: Pupils are equal, round and reactive to light accommodation. Eye muscles and extraocular movement intact. Sclera is anicteric. Neck; supple no lymphadenopathy, no thyromegaly or bruit Lungs: Normal respiratory rate/effort. Breath sounds bilateral equal and clear Heart: Normal rate. s1s2 normal. No rub or gallop. Extremities: no edema. No varicose veins. Rt foot dressed Neurological: Patient is alert, awake and oriented to person, place and time. No focal deficit. Strength bilateral appropriate and equal Skin: Warm and dry. Normal turgor. No rash. Palpitation: Normal elasticity for age Abdomen: Abdomen is soft. Bowel sounds +. There is no abdominal tenderness, no guarding/rigidity or organomegaly Psych: normal insight and normal affect/mood MSK: no joint tenderness or swelling. Digits and nails normal, no deformity : kidney or bladder not palpable Access: AVF Labs/imaging reviewed. Past medical history, past surgical history, family history, social history, allergy reviewed and noted as below Family Hx: no hx of CKD. Non contributory Objective - Vital Signs/Intake and Output Vital Signs (last 24 hours): Temp Pulse Resp BP Pulse Ox 98 F 83 16 108/55 L 98 07/06/18 12:35 07/06/18 12:35 07/06/18 12:35 07/06/18 12:35 07/06/18 12:35 Intake and Output: 07/06/18 07/06/18 06:59 18:59 Intake Total 650 Output Total 600 Balance 50 - Medications Medications: Current Medications Acetaminophen (Tylenol 325mg Tab) 650 mg PO Q6H PRN PRN Reason: MILD PAIN Amlodipine Besylate (Norvasc) 10 mg PO DAILY [facility] Last Admin: 07/06/18 11:13 Dose: Not Given Aspirin (Aspirin Chewable) 81 mg PO DAILY [facility] Last Admin: 07/06/18 11:12 Dose: Not Given Calcium Acetate (Phoslo) 1,334 mg PO ACTID [facility] Last Admin: 07/06/18 13:15 Dose: 1,334 mg Docusate Sodium (Colace) 100 mg PO BID [facility] Last Admin: 07/06/18 11:13 Dose: Not Given Gabapentin (Neurontin) 100 mg PO TID [facility] Last Admin: 07/06/18 14:53 Dose: 100 mg Glimepiride (Amaryl) 4 mg PO DAILY [facility] Last Admin: 07/06/18 11:12 Dose: Not Given Heparin Sodium (Porcine) (Heparin) 5,000 units SC Q8 [facility] Last Admin: 07/06/18 14:53 Dose: 5,000 units Piperacillin Sod/Tazobactam Sod (Zosyn 2.25 Gm Iv Premix) 2.25 gm in 50 mls @ 100 mls/hr IVPB Q12H [facility]; Protocol Last Admin: 07/06/18 11:14 Dose: Not Given Vancomycin HCl 1 gm/ Sodium (Chloride) 250 mls @ 166.7 mls/hr IVPB MWF [facility]; Protocol Last Admin: 07/06/18 11:14 Dose: Not Given Insulin Aspart (Novolog) 0 unit SC ACHS [facility]; Protocol Last Admin: 07/06/18 13:15 Dose: 4 units Insulin Glargine (Lantus) 45 unit SC HS [facility] Last Admin: 07/05/18 21:46 Dose: 45 units Lamotrigine (Lamictal) 25 mg PO BID [facility] Last Admin: 07/06/18 11:13 Dose: Not Given Losartan Potassium (Cozaar) 100 mg PO DAILY [facility] Last Admin: 07/06/18 11:13 Dose: Not Given Pantoprazole Sodium (Protonix Ec Tab) 40 mg PO DAILY [facility] Last Admin: 07/06/18 11:14 Dose: Not Given Rosuvastatin Calcium (Crestor) 10 mg PO HS [facility] Last Admin: 07/05/18 21:45 Dose: 10 mg Silver Sulfadiazine (Silvadene 1% 20 Gm) 0 ea TOP DAILY [facility] Last Admin: 07/06/18 11:14 Dose: Not Given Tamsulosin HCl (Flomax) 0.4 mg PO DAILY [facility] Last Admin: 07/06/18 11:13 Dose: Not Given Vitamin B Complex/Vit C/Folic Acid (Nephro-Poly) 1 tab PO 0800 [facility] Last Admin: 07/06/18 08:29 Dose: 1 tab - Labs Labs: 07/02/18 07:06 07/02/18 07:06
[2018-07-06 16:47] VITALS: BP 158/54; PULSE 78; RESP 20; TEMP 98.1; O2SAT 99
--- NOTE | 2018-07-06 17:30 | CP.PCM.PN ---
Subjective - Date & Time of Evaluation Date of Evaluation: 07/06/18 Time of Evaluation: 17:30 - Subjective Subjective: alert, oriented, denies acute pain on the foot. Objective - Vital Signs/Intake and Output Vital Signs (last 24 hours): Temp Pulse Resp BP Pulse Ox 98.1 F 78 20 158/54 H 99 07/06/18 16:00 07/06/18 16:00 07/06/18 16:00 07/06/18 16:00 07/06/18 16:00 Intake and Output: 07/06/18 07/06/18 06:59 18:59 Intake Total 650 500 Output Total 600 Balance 50 500 - Medications Medications: Current Medications Acetaminophen (Tylenol 325mg Tab) 650 mg PO Q6H PRN PRN Reason: MILD PAIN Amlodipine Besylate (Norvasc) 10 mg PO DAILY [facility] Last Admin: 07/06/18 11:13 Dose: Not Given Aspirin (Aspirin Chewable) 81 mg PO DAILY [facility] Last Admin: 07/06/18 11:12 Dose: Not Given Calcium Acetate (Phoslo) 1,334 mg PO ACTID [facility] Last Admin: 07/06/18 13:15 Dose: 1,334 mg Docusate Sodium (Colace) 100 mg PO BID [facility] Last Admin: 07/06/18 11:13 Dose: Not Given Gabapentin (Neurontin) 100 mg PO TID [facility] Last Admin: 07/06/18 14:53 Dose: 100 mg Glimepiride (Amaryl) 4 mg PO DAILY [facility] Last Admin: 07/06/18 11:12 Dose: Not Given Heparin Sodium (Porcine) (Heparin) 5,000 units SC Q8 [facility] Last Admin: 07/06/18 14:53 Dose: 5,000 units Piperacillin Sod/Tazobactam Sod (Zosyn 2.25 Gm Iv Premix) 2.25 gm in 50 mls @ 100 mls/hr IVPB Q12H [facility]; Protocol Last Admin: 07/06/18 11:14 Dose: Not Given Vancomycin HCl 1 gm/ Sodium (Chloride) 250 mls @ 166.7 mls/hr IVPB MWF [facility]; Protocol Last Admin: 07/06/18 11:14 Dose: Not Given Insulin Aspart (Novolog) 0 unit SC ACHS [facility]; Protocol Last Admin: 07/06/18 13:15 Dose: 4 units Insulin Glargine (Lantus) 45 unit SC HS [facility] Last Admin: 07/05/18 21:46 Dose: 45 units Lamotrigine (Lamictal) 25 mg PO BID [facility] Last Admin: 07/06/18 11:13 Dose: Not Given Losartan Potassium (Cozaar) 100 mg PO DAILY [facility] Last Admin: 07/06/18 11:13 Dose: Not Given Pantoprazole Sodium (Protonix Ec Tab) 40 mg PO DAILY [facility] Last Admin: 07/06/18 11:14 Dose: Not Given Rosuvastatin Calcium (Crestor) 10 mg PO HS [facility] Last Admin: 07/05/18 21:45 Dose: 10 mg Silver Sulfadiazine (Silvadene 1% 20 Gm) 0 ea TOP DAILY [facility] Last Admin: 07/06/18 11:14 Dose: Not Given Tamsulosin HCl (Flomax) 0.4 mg PO DAILY [facility] Last Admin: 07/06/18 11:13 Dose: Not Given Vitamin B Complex/Vit C/Folic Acid (Nephro-Poly) 1 tab PO 0800 [facility] Last Admin: 07/06/18 08:29 Dose: 1 tab - Labs Labs: 07/02/18 07:06 07/02/18 07:06 Assessment and Plan - Assessment and Plan (Free Text) Assessment: 78 year old male admitted with right big toe infection, seen and examined, had HD done today. Alert and oriented, denies sob or chest pains. Able to ambulate with assistance. Doesn't want to go to any rehab, cleared by DR Wiley, discussed with DR Johnson, plan to discharge home on po augmentin for 10 days. Advised to follow up with podiatry in 1 week.
--- NOTE | 2018-07-06 17:37 | PCM.HF ---
Heart Failure Core Measure - Heart Failure Ejection Fraction: 40 % or Greater (EF 64%) JOSE ELIAS Inhibitor Prescribed: No Contraindication/Reason for not providing: on arb Beta-Hao Prescribed: None Contraindication/Reason for not providing: COPD Angiotensin II Receptor Hao Prescribed: Yes AnticoagulationTherapy for Atrial Fibrillation/Atrialflutter: No Contraindication/Reason for not providing: no afib Aldosterone Antagonist Prescribed: No Contraindication/Reason for not providing: renal dysfunction Hydralazine Nitrate Prescribed: No Contraindication/Reason for not providing: EF >40% Implantable Cardioverter Defibrillator Therapy: No Contraindication/Reason for not providing: EF >40% Cardiac Resynchronization Therapy Prescribed: No Contraindication/Reason for not providing: not indicated - Follow up Will be discharged to: Home Follow Up Date (must be within 7 days from discharge): 07/13/18
--- NOTE | 2018-07-09 10:48 | CP.PCM.DIS ---
Provider - Provider Date of Admission: 06/30/18 17:33 Attending physician: Neftali Johnson MD Consults: 06/30/18 18:39 Nephrology Consult Routine Comment: Consulting Provider: Jose Luis Lawton Consulting Physician: Jose Luis Lawton Reason for Consult: Patient known to you for ESRD on HD. 06/30/18 18:41 Podiatry Consult Routine Comment: Consulting Provider: Rodriguez Juarez Consulting Physician: Rodriguez Juarez Reason for Consult: Right foot cellulitis 06/30/18 18:43 Physician Consult Routine Comment: Consulting Provider: Ramu Wiley Consulting Physician: Ramu Wiley Reason for Consult: Right foot cellulitis Time Spent in preparation of Discharge (in minutes): 45 Diagnosis - Discharge Diagnosis (1) Cellulitis of foot, right Status: Acute (2) Uncontrolled insulin dependent diabetes mellitus Status: Acute (3) Chronic kidney disease with end stage renal failure on dialysis Status: Acute Hospital Course - Lab Results Lab Results: Micro Results 06/30/18 15:50 Blood Blood Culture - Final NO GROWTH AFTER 5 DAYS 06/30/18 15:50 Blood Gram Stain - Final TEST NOT PERFORMED 06/30/18 15:50 Blood Blood Culture - Final NO GROWTH AFTER 5 DAYS 06/30/18 15:50 Blood Gram Stain - Final TEST NOT PERFORMED 07/01/18 06:24 Foot - Right Gram Stain - Final 07/01/18 06:24 Foot - Right Wound Culture - Final Corynebacterium Species Beta Hemolytic Strep Group B Most Recent Lab Values WBC 7.5 K/uL (4.8-10.8) 07/02/18 07:06 RBC 3.83 Mil/uL (4.40-5.90) L 07/02/18 07:06 Hgb 11.1 g/dL (12.0-18.0) L 07/02/18 07:06 Hct 32.2 % (35.0-51.0) L 07/02/18 07:06 MCV 84.1 fL (80.0-94.0) 07/02/18 07:06 MCH 28.9 pg (27.0-31.0) 07/02/18 07:06 MCHC 34.4 g/dL (33.0-37.0) 07/02/18 07:06 RDW 15.1 % (11.5-14.5) H 07/02/18 07:06 Plt Count 154 K/uL (130-400) 07/02/18 07:06 MPV 9.0 fL (7.2-11.7) 07/02/18 07:06 Neut % (Auto) 67.1 % (50.0-75.0) 07/02/18 07:06 Lymph % (Auto) 19.5 % (20.0-40.0) L 07/02/18 07:06 [place] % (Auto) 9.3 % (0.0-10.0) 07/02/18 07:06 Eos % (Auto) 2.7 % (0.0-4.0) 07/02/18 07:06 Baso % (Auto) 1.4 % (0.0-2.0) 07/02/18 07:06 Neut # (Auto) 5.0 K/uL (1.8-7.0) 07/02/18 07:06 Lymph # (Auto) 1.5 K/uL (1.0-4.3) 07/02/18 07:06 [place] # (Auto) 0.7 K/uL (0.0-0.8) 07/02/18 07:06 Eos # (Auto) 0.2 K/uL (0.0-0.7) 07/02/18 07:06 Baso # (Auto) 0.1 K/uL (0.0-0.2) 07/02/18 07:06 Sodium 134 mmol/L (132-148) 07/02/18 07:06 Potassium 4.8 mmol/L (3.6-5.2) 07/02/18 07:06 Chloride 93 mmol/L (98-107) L 07/02/18 07:06 Carbon Dioxide 31 mmol/L (22-30) H 07/02/18 07:06 Anion Gap 15 (10-20) 07/02/18 07:06 BUN 45 mg/dL (9-20) H 07/02/18 07:06 Creatinine 5.5 mg/dL (0.8-1.5) H 07/02/18 07:06 Est GFR ( Amer) 12 07/02/18 07:06 Est GFR (Non-Af Amer) 10 07/02/18 07:06 POC Glucose (mg/dL) 230 mg/dL (65-110) H 07/06/18 10:56 Random Glucose 235 mg/dL (75-110) H 07/02/18 07:06 Hemoglobin A1c 7.9 % (4.2-6.5) H 07/02/18 07:06 Calcium 8.5 mg/dl (8.6-10.4) L 07/02/18 07:06 Total Bilirubin 0.4 mg/dL (0.2-1.3) 07/02/18 07:06 AST 37 U/L (17-59) 07/02/18 07:06 ALT 31 U/L (21-72) 07/02/18 07:06 Alkaline Phosphatase 95 U/L (38-126) 07/02/18 07:06 Total Protein 7.0 g/dL (6.3-8.3) 07/02/18 07:06 Albumin 3.6 g/dL (3.5-5.0) 07/02/18 07:06 Globulin 3.3 gm/dL (2.2-3.9) 07/02/18 07:06 Albumin/Globulin Ratio 1.1 (1.0-2.1) 07/02/18 07:06 B-Hydroxybutyrate 0.09 mM (0.02-0.27) 06/30/18 16:03 - Hospital Course Hospital Course: 78 years old male was brought to the ED at [facility] because or worsening of a right great toe wound which resulted from a toenail cutting a week ago. He is known to have an IDDM, a hypertension, an ESRD on HD, a BPH, a mild senile dementia, a s/p CABG and AVR in 2012, he quit cigarette smoking many years ago. On admission, he was afebrile. WBC: 7.1 Hgb: 11.o Na+: 133 K+: 5.9 BUN: 55 creatinine: 6.1 Glucose: 382. He was evaluated by Dr Wiley( ID), Dr Agosto ( Podiatry ), Dr Lawton ( renal), and was started on IV antibiotics( Vancomycin and Zosyn) and received local wound care. His Insulin dosage was adjusted to control his hyperglycemia. The right great toe wound and the left foot cellulitis improved. Wound cultures yielded Corynebacteria and Beta Hemolytic Strep group B sensitive to Ampicillin. He was discharged home on 07/06/2018 in a stable condition. He will resume all his home meds, HD as per his Nephrologists and Augmentin 875 mg PO BID for 10 more days. He will have a follow up with Dr Agosto and Dr Wiley in about a week. - Date & Time of H&P Date of H&P: 06/30/18 Discharge Exam - Head Exam Head Exam: NORMOCEPHALIC - Eye Exam Eye Exam: Normal appearance Pupil Exam: NORMAL ACCOMODATION - Neck Exam Neck exam: Normal Inspection - Respiratory Exam Respiratory Exam: Clear to PA & Lateral, UNREMARKABLE - Cardiovascular Exam Cardiovascular Exam: REGULAR RHYTHM, Systolic Murmur - GI/Abdominal Exam GI & Abdominal Exam: Normal Bowel Sounds, Soft - Rectal Exam Rectal Exam: Deferred - Extremities Exam Additional comments: No pedal edema. Right great toe wound dry. - Back Exam Back exam: NORMAL INSPECTION - Neurological Exam Neurological exam: Alert, Oriented x3 - Psychiatric Exam Psychiatric exam: Anxious - Skin Skin Exam: Dry, Intact, Warm Discharge Plan - Discharge Medications Prescriptions: Amoxicillin/Clavulanate [Augmentin 875 MG-125 MG] 1 tab PO BID #20 tab amLODIPine [Norvasc] 10 mg PO DAILY 30 Days tab Lactobacillus 3/Fos/Pantethine [Probiotic & Acidophilus 250 mg-1000 Mcg] 1 cap PO BID 14 Days cap - Follow Up Plan Condition: STABLE Disposition: HOME/ ROUTINE Instructions: Hemodialysis (DC), Wound Care (DC), Hyperglycemia, Adult (DC), End Stage Kidney Disease (DC), Cellulitis (DC), Cellulitis (GEN) Additional Instructions: FOLLOW UP WITH DR JOHNSON ----CALL FOR APPOINTMENT FOLLOW UP WITH DR WILEY ----CALL FOR APPOINTMENT FOLLOW UP WITH DR JUAREZ ---CALL FOR APPOINTMENT CONTINUE HOME MEDICATION NEW PRESCRIPTION GIVNE augmentin 875mg po bid x10 days AMLODIPINE 10 MG PO DAILY ACTIVITY TOLERATED HEMODIALYSIS SCHEDULE OUT PATIENT WOUND CARE ORDER Wound cleaned with saline and dressed with xeroform, DSD (DAILY) Silvadine cream ordered CALL DR JOHNSON OR GO TO THE EMERGENCY ROOM IF SYMPTOM RETURN OR WORSENING Referrals: Edwardo Valenzuela MD [Staff Provider] - Ramu Wiley MD [Staff Provider] - Neftali Johnson MD [Staff Provider] - Rodriguez Juarez DPM [Staff Provider] - Clinical Quality Measures - CQM - Heart Failure Will be discharged to: Home Follow Up Date (must be within 7 days from discharge): 07/13/18 Follow Up Time: 14:00 - Date & Time of Discharge Summary Date of Discharge Summary: 07/09/18 Time of Discharge Summary: 10:58
== END 2018-07-06 17:35 | disposition home or self-care (01) | DRG 602 ==
LOC: C.ER 13:27 → C.9E 17:33 → C.3T 07-01 13:44
PROVIDERS: ADMIT Internal Medicine Cardiovascular Disease; ATTEND Internal Medicine Cardiovascular Disease
PROC: 5A1D70Z Performance of Urinary Filtration, Intermittent, Less than 6 Hours Per Day (ICD-10-PCS; principal; 2018-07-01)
DX: L03.031 Cellulitis of right toe (principal); N18.6 End stage renal disease; E10.52 Type 1 diabetes mellitus with diabetic peripheral angiopathy with gangrene; I13.2 Hypertensive heart and chronic kidney disease with heart failure and with stage 5 chronic kidney disease, or end stage renal disease; N25.81 Secondary hyperparathyroidism of renal origin; N17.9 Acute kidney failure, unspecified; L03.115 Cellulitis of right lower limb; E10.65 Type 1 diabetes mellitus with hyperglycemia; E10.22 Type 1 diabetes mellitus with diabetic chronic kidney disease; E78.00 Pure hypercholesterolemia, unspecified; F03.90 Unspecified dementia, unspecified severity, without behavioral disturbance, psychotic disturbance, mood disturbance, and anxiety; F31.9 Bipolar disorder, unspecified; I25.10 Atherosclerotic heart disease of native coronary artery without angina pectoris; I50.9 Heart failure, unspecified; J44.9 Chronic obstructive pulmonary disease, unspecified; N40.0 Benign prostatic hyperplasia without lower urinary tract symptoms; Z79.4 Long term (current) use of insulin; Z95.1 Presence of aortocoronary bypass graft; Z95.2 Presence of prosthetic heart valve; Z99.2 Dependence on renal dialysis; M19.90 Unspecified osteoarthritis, unspecified site; D64.9 Anemia, unspecified; E83.39 Other disorders of phosphorus metabolism; Z87.891 Personal history of nicotine dependence; E10.621 Type 1 diabetes mellitus with foot ulcer; L97.519 Non-pressure chronic ulcer of other part of right foot with unspecified severity

== ENCOUNTER 2018-08-04 11:03 | Inpatient (IN) | payer MEDICARE ==
[2018-08-04 11:09] VITALS: BMI 30.2
[2018-08-04] MEDS ORDERED: Sodium Chloride 0.9% 500 ML IV ONE (11:35)
--- NOTE | 2018-08-04 11:55 | RAD ---
HISTORY: Sepsis Patient COMPARISON: Chest x-ray performed 10/30/17 TECHNIQUE: Chest, one view. FINDINGS: LUNGS: Mild patchy atelectasis or infiltrate involving the medial right lower lobe. Please note that chest x-ray has limited sensitivity for the detection of pulmonary masses. PLEURA: No significant pleural effusion identified. No definite pneumothorax . CARDIOVASCULAR: Median sternotomy wires. Heart size appears within normal limits. Atherosclerotic calcifications of the aorta. OSSEOUS STRUCTURES: Degenerative changes. Acromioclavicular arthropathy. VISUALIZED UPPER ABDOMEN: Unremarkable. OTHER FINDINGS: None. IMPRESSION: Mild patchy atelectasis or infiltrate involving the medial right lower lobe.
[2018-08-04 12:02] LABS: BASO % 0.4 % (0.0-2.0); EOS # 0.1 K/uL (0.0-0.7); EOS % 0.8 % (0.0-4.0); HEMOGLOBIN 9.6 g/dL (12.0-18.0); LYMPH # 1.1 K/uL (1.0-4.3); LYMPH % 8.9 % (20.0-40.0); MEAN CELL VOLUME 86.6 fL (80.0-94.0); MEAN CORPUSCULAR HEMOGLOBIN 28.6 pg (27.0-31.0); MEAN CORPUSCULAR HGB CONC 33.1 g/dL (33.0-37.0); MEAN PLATELET VOLUME 8.8 fL (7.2-11.7); MONO # 0.7 K/uL (0.0-0.8); MONO % 5.8 % (0.0-10.0); NEUT # 10.1 K/uL (1.8-7.0); NEUT % 84.1 % (50.0-75.0); PLATELET COUNT 194 K/uL (130-400); RBC 3.34 Mil/uL (4.40-5.90); RED CELL DISTRIBUTION WIDTH 14.8 % (11.5-14.5)
[2018-08-04 12:05] LABS: VENOUS BLOOD GAS BASE EXCESS 5.4 mmol/L (0.0-2.0); VENOUS BLOOD GAS PCO2 42 mmHg (40-60); VENOUS BLOOD GAS PO2 23 mm/Hg (30-55); VENOUS BLOOD PH 7.46 (7.32-7.43)
[2018-08-04 12:16] LABS: INR 1.1; PROTHROMBIN TIME 12.5 SECONDS (9.7-12.2)
[2018-08-04 12:25] LABS: ALB/GLOB RATIO 1.1 (1.0-2.1); ALBUMIN 3.6 g/dL (3.5-5.0); ALT/SGPT 75 U/L (21-72); AST/SGOT 96 U/L (17-59); BANDS 2 % (0-2); BLOOD UREA NITROGEN 43 mg/dL (9-20); CALCIUM 8.3 mg/dl (8.6-10.4); EOSINOPHIL 1 % (0-4); GFR NON-AFRICAN AMERICAN 7; LYMPHOCYTE 9 % (20-40); MONOCYTE 7 % (0-10); NEUTROPHIL 81 % (50-75); TOTAL CELLS COUNTED 100
[2018-08-04 12:26] LABS: ANISOCYTOSIS SLIGHT; PLATELET ESTIMATE NORMAL (NORMAL)
[2018-08-04 12:27] LABS: HYPOCHROMIC SLIGHT; POLYCHROMIC SLIGHT
[2018-08-04 12:30] LABS: B-TYPE NATRIURETIC PEPTIDE 14800 pg/mL (0-900)
--- NOTE | 2018-08-04 13:39 | C.PDOC ---
History Of Present Illness 78 y/o male presents to the ER complaining of wound to right great toe.Patient states that there has been drainage from the wound for the past 3 weeks. He reports that he also developed an ulcer on the right heel, there is drainage f rom the heel. Patient also notes that he developed fever with associated cough and congestion after he recently traveled back from [place]. Family of patient states that he has become progressively become weak. They report that he had 2 falls at home yesterday and today. Patient is currently on dialysis on Mondays, Wednesdays, and Fridays. Denies having CP and SOB. Time Seen by Provider: 08/04/18 11:21 Chief Complaint (Nursing): Flu-like Symptoms History Per: Patient, Family History/Exam Limitations: no limitations Onset/Duration Of Symptoms: Days Current Symptoms Are (Timing): Still Present Severity: Moderate Past Medical History Reviewed: Historical Data, Nursing Documentation, Vital Signs Vital Signs: Last Vital Signs Temp 99.5 F 08/04/18 11:09 Pulse 93 H 08/04/18 11:09 Resp 18 08/04/18 11:09 BP 107/51 L 08/04/18 11:09 Pulse Ox 99 08/04/18 11:09 - Medical History PMH: Arthritis, Benign Prostatic Hyperplasia, Bipolar Disorder, CAD, CHF, COPD, Dementia, Diabetes, HTN, Hypercholesterolemia, Peripheral Edema (no longer), Pneumonia, End Stage Renal Disease (on dialysis M/W/F.), Chronic Kidney Disease Surgical History: CABG (Aortive valve replacement9 Tissue valve ) in 07/2013 at [facility] in [facility]) - [facility] Procedures (06/30/18) CENTRAL VENOUS CATHETER PLACEMENT WITH GUIDANCE (12/12/13) CLOSURE SKIN & SUBCUTANEOUS NEC (01/08/14) CORONAR ARTERIOGR-2 CATH (06/19/13) DIALYSIS ARTERIOVENOSTOM (03/01/15) FLUOROSCOPY OF SUP VENA CAVA USING [facility] CONTRAST, GUIDANCE (05/01/15) INSERT INFUSION DEV IN R EXT JUGULAR VEIN, PERC (05/01/15) INSERTION OF INFUSION DEV INTO SUP VENA CAVA, PERC APPROACH (05/01/15) LOC EXC BONE LESION NEC (10/26/13) PERFORMANCE OF URINARY FILTRATION, MULTIPLE (05/01/15) RT & LT HEART ANGIOCARD (06/19/13) RT/LEFT HEART CARD CATH (06/19/13) ULTRASONOGRAPHY OF RIGHT JUGULAR VEINS, GUIDANCE (05/01/15) VACCINATION NEC (12/12/13) VENOUS CATHETERIZATION NEC (10/26/13) Family History: States: No Known Family Hx - Social History Hx Tobacco Use: Yes Hx Alcohol Use: No Hx Substance Use: No - Immunization History Hx Tetanus Toxoid Vaccination: Yes Hx Influenza Vaccination: Yes Hx Pneumococcal Vaccination: Yes Review Of Systems Except As Marked, All Systems Reviewed And Found Negative. Constitutional: Positive for: Fever. Negative for: Chills ENT: Positive for: Nose Congestion Respiratory: Positive for: Cough Gastrointestinal: Negative for: Nausea, Vomiting Skin: Positive for: Other (right foot ulcer and right great toe wound) Physical Exam - Physical Exam Appears: No Acute Distress, Other (obese male ) Skin: Normal Color, Warm, Dry, Other (open necrotic wound to distal tip of right great toe, 1 cm draining ulcer to volar aspect of right heel) Head: Atraumatic, Normacephalic Eye(s): bilateral: Normal Inspection, PERRL, EOMI Nose: Normal Oral Mucosa: Moist Throat: No Erythema, No Exudate Neck: Normal ROM, Supple Chest: Symmetrical Cardiovascular: Rhythm Regular, No Friction Rub, No Murmur Respiratory: Rales (bibasilar rales), No Rhonchi, No Wheezing Gastrointestinal/Abdominal: Soft, No Tenderness, No Guarding, No Rebound Extremity: Normal ROM, No Tenderness, Capillary Refill (< 2 sec), No Swelling, Other ((+) 1cm necrotic ulcer to the right volar heel. (+) cellulitic ulcer with drainage to the right great toe.) Extremity: Bilateral: Normal Color And Temperature Pulses: Left Dorsalis Pedis: Normal, Right Dorsalis Pedis: Normal Neurological/Psych: Oriented x3, Normal Speech, Normal Motor, Normal Sensation Gait: Unable To Assess ED Course And Treatment - Laboratory Results Result Diagrams: 08/04/18 11:56 08/04/18 11:56 O2 Sat by Pulse Oximetry: 99 (RA) Pulse Ox Interpretation: Normal - Other Rad CXR X-Ray: Viewed By Me, Read By Radiologist Interpretation: HISTORY: Sepsis Patient. COMPARISON: Chest x-ray performed 10/30/17. TECHNIQUE: Chest, one view. FINDINGS: LUNGS: Mild patchy atelectasis or infiltrate involving the medial right lower lobe. Please note that chest x-ray has limited sensitivity for the detection of pulmonary masses. PLEURA: No significant pleural effusion identified. No definite pneumothorax . CARDIOVASCULAR: Median sternotomy wires. Heart size appears within normal limits. Atherosclerotic calcifications of the aorta. OSSEOUS STRUCTURES: Degenerative changes. Acromioclavicular arthropathy. VISUALIZED UPPER ABDOMEN: Unremarkable. OTHER FINDINGS: None. IMPRESSION: Mild patchy atelectasis or infiltrate involving the medial right lower lobe. Medical Decision Making Medical Decision Making: Plan: --Labs --UA --CXR --IV Fluids --Zosyn IV --Vancomycin IV Pneumonia is found in the CXR. Blood cultures was were sent and the patient was started on Zosyn and Vanco IV for nosocomial pneumonia. PMD Dr Johnson was contacted [phone]. Case was discussed with Dr. Johnson who agrees to admit the patient to his service. Case was discussed with Leighann (Nephro) who agrees to consult on the patient for dialysis. Podiatry consult was placed as well. Disposition - Disposition Disposition: HOSPITALIZED Disposition Time: 14:00 Condition: STABLE - POA Present On Arrival: None - Clinical Impression Clinical Impression: Pneumonia, Ischemic ulcer of heel with necrosis of muscle, Infected ulcer of skin - PA / PATIENT PLACEMENT COORDINATOR / Resident Statement MD/DO has reviewed & agrees with the documentation as recorded. - Scribe Statement The provider has reviewed the documentation as recorded by the Marcyibe Chey Naranjo Provider Attestation All medical record entries made by the Scribe were at my direction and personally dictated by me. I have reviewed the chart and agree that the record accurately reflects my personal performance of the history, physical exam, medical decision making, and the department course for this patient. I have also personally directed, reviewed, and agree with the discharge instructions and disposition.
[2018-08-04] MEDS ORDERED: Piperacillin/Tazobact 3.375 gm 100 ML IV STA (13:42)
[2018-08-04] MEDS ORDERED: Vancomycin 1 GM 1 GM/250 ML BAG IV STA (13:42)
[2018-08-04] MEDS ORDERED: Piperacillin/Tazobact 3.375 gm 100 ML IVPB ONE (14:24)
[2018-08-04] MEDS ORDERED: Vancomycin 1 GM 1 GM/250 ML BAG IVPB ONE (14:24)
[2018-08-04] MEDS ORDERED: (Novolin R) Insulin Human Regular 100 units/ml vial SC ONE (17:30)
[2018-08-04] MEDS: (Lantus) Insulin Glargine, Recombinant SC SCH (22:13)
[2018-08-04] MEDS: (Novolog) Insulin Aspart, Recombinant 100 u/ml 10 ml vial SC SCH (22:14)
[2018-08-04] MEDS: Piperacill/Tazo 2.25gm in Dex 2.25 GM/50 ML BAG IVPB SCH (22:21)
--- NOTE | 2018-08-04 23:09 | CP.PCM.HP ---
History of Present Illness - History of Present Illness History of Present Illness: This is a 78 years old male who was brought to the ED at [facility] because of a productive cough for the last 2 weeks, mild fever, poor appetite , increasing weakness, worsening of his right toe wound and right heel wound. Known to have an Insulin-dependent diabetes mellitus, a hypertension, a s/p CABG and AVR ( tissue valve) in 2012, a diabetic neuropathy, an ESRD on HD, he is found to have a RML pneumonia, a blood glucose more than 400 mg%. He was started on IV Vancomycin and IV Zosyn. In June 2018, he was hospitalized for a cellulitis of the right toe ( wound culture revealed Corynebacteria, and Group B streptococci, sensitive to Ampicillin). Present on Admission - Present on Admission Any Indicators Present on Admission: Yes History of Uncontrolled Diabetes: Yes Urinary Catheter: No Decubitus Ulcer Present: Yes (right heel ulcer) Decubitus Ulcer Location: Right heel Decubitus Ulcer Stage: IV Review of Systems - Constitutional Constitutional: Fever, Lethargy, Weakness - Respiratory Respiratory: Cough, Chest Congestion - Integumentary Additional comments: Gangrene of the right toe and ulcer of the right heel. - Neurological Neurological: Weakness - Psychiatric Psychiatric: Anxiety Past Patient History - Infectious Disease Hx of Infectious Diseases: None - Tetanus Immunizations Tetanus Immunization: Unknown - Past Medical History & Family History Past Medical History?: Yes - Past Social History Smoking Status: Former Smoker Alcohol: None Drugs: Denies Home Situation {Lives}: Alone - CARDIAC Hx Congestive Heart Failure: Yes Hx Hypercholesterolemia: Yes Hx Hypertension: Yes Hx Peripheral Edema: Yes (no longer) - PULMONARY Hx Chronic Obstructive Pulmonary Disease (COPD): Yes Hx Pneumonia: Yes - NEUROLOGICAL Hx Dementia: Yes - HEENT Hx HEENT Problems: Yes Hx Cataracts: Yes (bilat iol) - RENAL Hx Chronic Kidney Disease: Yes Hx Dialysis: Yes - ENDOCRINE/METABOLIC Hx Endocrine Disorders: Yes Hx Diabetes Mellitus Type 1: Yes ((+) diabetic neuropathy) - HEMATOLOGICAL/ONCOLOGICAL Hx Blood Disorders: No - INTEGUMENTARY Hx Dermatological Problems: Yes (ble with discoloration) - MUSCULOSKELETAL/RHEUMATOLOGICAL Hx Arthritis: Yes - GASTROINTESTINAL Hx Gastrointestinal Disorders: Yes Hx Gastroesophageal Reflux: Yes - GENITOURINARY/GYNECOLOGICAL Hx Genitourinary Disorders: Yes Hx Prostate Problems: Yes Other/Comment: BPH - PSYCHIATRIC Hx Bipolar Disorder: Yes Hx Substance Use: No - SURGICAL HISTORY Hx Coronary Artery Bypass Graft: Yes (Aortive valve replacement9 Tissue valve ) in 07/2013 at [facility] in [facility]) - ANESTHESIA Hx Anesthesia: Yes Hx Anesthesia Reactions: No Hx Malignant Hyperthermia: No Meds Allergies/Adverse Reactions: Allergies Allergy/AdvReac Type Severity Reaction Status Date / Time No Known Allergies Allergy Verified 08/04/18 11:09 Physical Exam - Constitutional Appears: No Acute Distress, Chronically Ill - Head Exam Head Exam: NORMAL INSPECTION - Eye Exam Eye Exam: Normal appearance - ENT Exam ENT Exam: Normal Exam - Neck Exam Neck exam: Positive for: Normal Inspection - Respiratory Exam Additional comments: Rhonchi at both bases. - Cardiovascular Exam Cardiovascular Exam: REGULAR RHYTHM - GI/Abdominal Exam GI & Abdominal Exam: Normal Bowel Sounds, Soft - Rectal Exam Rectal Exam: Deferred - Extremities Exam Additional comments: Gangrene of the right toe, pressure ulcer of the right heel. - Back Exam Back exam: NORMAL INSPECTION - Neurological Exam Neurological exam: Alert, Oriented x3 - Psychiatric Exam Psychiatric exam: Anxious - Skin Additional comments: Gangrene of the right great toe, and ulcer of the right heel. Results - Vital Signs Recent Vital Signs: Last Vital Signs Temp 98.2 F 08/04/18 17:45 Pulse 79 08/04/18 17:45 Resp 16 08/04/18 17:45 BP 138/63 08/04/18 17:45 Pulse Ox 99 08/04/18 18:25 - Labs Result Diagrams: 08/04/18 11:56 08/04/18 11:56 Labs: Laboratory Results - last 24 hr 08/04/18 08/04/18 08/04/18 11:56 11:56 11:56 WBC 12.0 H D RBC 3.34 L Hgb 9.6 L Hct 29.0 L MCV 86.6 D MCH 28.6 MCHC 33.1 RDW 14.8 H Plt Count 194 MPV 8.8 Neut % (Auto) 84.1 H Lymph % (Auto) 8.9 L [place] % (Auto) 5.8 Eos % (Auto) 0.8 Baso % (Auto) 0.4 Neut # (Auto) 10.1 H Lymph # (Auto) 1.1 [place] # (Auto) 0.7 Eos # (Auto) 0.1 Baso # (Auto) 0.0 Neutrophils % (Manual) 81 H Band Neutrophils % 2 Lymphocytes % (Manual) 9 L Monocytes % (Manual) 7 Eosinophils % (Manual) 1 Platelet Estimate Normal Polychromasia Slight Hypochromasia (manual) Slight Anisocytosis (manual) Slight PT 12.5 H INR 1.1 APTT 28 pO2 VBG pH VBG pCO2 VBG HCO3 VBG Total CO2 VBG O2 Sat (Calc) VBG Base Excess VBG Potassium Glucose Lactate Sodium 134 Potassium 3.9 Chloride 93 L Carbon Dioxide 30 Anion Gap 15 BUN 43 H Creatinine 7.8 H* D Est GFR ( Amer) 8 Est GFR (Non-Af Amer) 7 POC Glucose (mg/dL) Random Glucose 228 H Calcium 8.3 L Phosphorus 3.8 Magnesium 2.3 Total Bilirubin 0.6 AST 96 H D ALT 75 H D Alkaline Phosphatase 103 Troponin I < 0.0120 NT-Pro-B Natriuret Pep 76220 H Total Protein 6.9 Albumin 3.6 Globulin 3.4 Albumin/Globulin Ratio 1.1 Venous Blood Potassium Influenza Typ A,B (EIA) 08/04/18 08/04/18 08/04/18 11:56 12:00 16:48 WBC RBC Hgb Hct MCV MCH MCHC RDW Plt Count MPV Neut % (Auto) Lymph % (Auto) [place] % (Auto) Eos % (Auto) Baso % (Auto) Neut # (Auto) Lymph # (Auto) [place] # (Auto) Eos # (Auto) Baso # (Auto) Neutrophils % (Manual) Band Neutrophils % Lymphocytes % (Manual) Monocytes % (Manual) Eosinophils % (Manual) Platelet Estimate Polychromasia Hypochromasia (manual) Anisocytosis (manual) PT INR APTT pO2 23 L VBG pH 7.46 H VBG pCO2 42 VBG HCO3 27.7 VBG Total CO2 31.2 H VBG O2 Sat (Calc) 48.6 VBG Base Excess 5.4 H VBG Potassium 3.5 L Glucose 208 H Lactate 1.7 Sodium 136.0 Potassium Chloride 99.0 Carbon Dioxide Anion Gap BUN Creatinine Est GFR ( Amer) Est GFR (Non-Af Amer) POC Glucose (mg/dL) 438 H* Random Glucose Calcium Phosphorus Magnesium Total Bilirubin AST ALT Alkaline Phosphatase Troponin I NT-Pro-B Natriuret Pep Total Protein Albumin Globulin Albumin/Globulin Ratio Venous Blood Potassium 3.5 L Influenza Typ A,B (EIA) Negative for flu a/b 08/04/18 21:14 WBC RBC Hgb Hct MCV MCH MCHC RDW Plt Count MPV Neut % (Auto) Lymph % (Auto) [place] % (Auto) Eos % (Auto) Baso % (Auto) Neut # (Auto) Lymph # (Auto) [place] # (Auto) Eos # (Auto) Baso # (Auto) Neutrophils % (Manual) Band Neutrophils % Lymphocytes % (Manual) Monocytes % (Manual) Eosinophils % (Manual) Platelet Estimate Polychromasia Hypochromasia (manual) Anisocytosis (manual) PT INR APTT pO2 VBG pH VBG pCO2 VBG HCO3 VBG Total CO2 VBG O2 Sat (Calc) VBG Base Excess VBG Potassium Glucose Lactate Sodium Potassium Chloride Carbon Dioxide Anion Gap BUN Creatinine Est GFR ( Amer) Est GFR (Non-Af Amer) POC Glucose (mg/dL) 327 H Random Glucose Calcium Phosphorus Magnesium Total Bilirubin AST ALT Alkaline Phosphatase Troponin I NT-Pro-B Natriuret Pep Total Protein Albumin Globulin Albumin/Globulin Ratio Venous Blood Potassium Influenza Typ A,B (EIA) Assessment & Plan (1) Ischemic ulcer of heel with necrosis of muscle Assessment and Plan: Podiatry evaluation, wound culture and IV antibiotic. Status: Acute (2) Gangrene of toe of right foot Assessment and Plan: Podiatry evaluation, IV antibiotics. Status: Acute (3) Right middle lobe pneumonia Assessment and Plan: IV antibiotics. Status: Acute (4) Uncontrolled diabetes mellitus Assessment and Plan: Restart Lantus, Novolog and oral hypoglycemiants. Status: Acute (5) ESRD on hemodialysis Assessment and Plan: HD as per Nephrologists. Status: Acute Decision To Admit - Pt Status Changed To: Hospital Disposition Of: Inpatient - Admit Certification Admit to Inpatient:: After my assessment, the patient will require hospitalization for at least two midnights. This is because of the severity of symptoms shown, intensity of services needed, and/or the medical risk in this patient being treated as an outpatient. - InPatient: Physician Admission Certification:: After my assessments, the patient requires hospitalization for at least two midnights. - . Bed Request Type: Regular Admitting Physician: Neftali Johnson
[2018-08-05] MEDS ORDERED: guaiFENesin 100 mg/5 ml Syrup UD PO ONE (02:27)
[2018-08-05] MEDS: (Novolog) Insulin Aspart, Recombinant 100 u/ml 10 ml vial SC SCH ×4 (08:06→22:54)
[2018-08-05] MEDS: Piperacill/Tazo 2.25gm in Dex 2.25 GM/50 ML BAG IVPB SCH ×2 (10:17→22:54)
--- NOTE | 2018-08-05 11:52 | CP.PCM.CON ---
History of Present Illness - History of Present Illness History of Present Illness: Consult Note for Podiatry - Dr. Rodriguez Jenkins 78 y/o male with PMHx of DM, HTN, HLD, ESRD on dialysis (MWF), CAD s/p CABG, BPH and bipolar disorder admitted to hospital for pneumonia seen at bedside this morning for right great toe ulcer and bilateral heel wounds. Pt states he has noted drainage to the right big toe x 3 weeks with pus. Also admits he has been having fever and a productive cough for a few days. At present, denies any pain to the lower extremities. Says that when he is at home he is ambulatory but lately he has been mostly bed bound. Denies nausea, vomiting, chills, diarrhea or constipation. PSHx: CABG All: NKDA Social Hx: Quit smoking in 2003. Denies EtOH or illicit drug use Review of Systems - Review of Systems All systems: reviewed and no additional remarkable complaints except (per HPI) Past Patient History - Infectious Disease Hx of Infectious Diseases: None - Tetanus Immunizations Tetanus Immunization: Unknown - Past Medical History & Family History Past Medical History?: Yes - Past Social History Smoking Status: Former Smoker Alcohol: None Drugs: Denies Home Situation {Lives}: Alone - CARDIAC Hx Congestive Heart Failure: Yes Hx Hypercholesterolemia: Yes Hx Hypertension: Yes Hx Peripheral Edema: Yes (no longer) - PULMONARY Hx Chronic Obstructive Pulmonary Disease (COPD): Yes Hx Pneumonia: Yes - NEUROLOGICAL Hx Dementia: Yes - HEENT Hx HEENT Problems: Yes Hx Cataracts: Yes (bilat iol) - RENAL Hx Chronic Kidney Disease: Yes Hx Dialysis: Yes - ENDOCRINE/METABOLIC Hx Endocrine Disorders: Yes Hx Diabetes Mellitus Type 1: Yes ((+) diabetic neuropathy) - HEMATOLOGICAL/ONCOLOGICAL Hx Blood Disorders: No - INTEGUMENTARY Hx Dermatological Problems: Yes (ble with discoloration) - MUSCULOSKELETAL/RHEUMATOLOGICAL Hx Arthritis: Yes - GASTROINTESTINAL Hx Gastrointestinal Disorders: Yes Hx Gastroesophageal Reflux: Yes - GENITOURINARY/GYNECOLOGICAL Hx Genitourinary Disorders: Yes Hx Prostate Problems: Yes Other/Comment: BPH - PSYCHIATRIC Hx Bipolar Disorder: Yes Hx Substance Use: No - SURGICAL HISTORY Hx Coronary Artery Bypass Graft: Yes (Aortive valve replacement9 Tissue valve ) in 07/2013 at [facility]) - ANESTHESIA Hx Anesthesia: Yes Hx Anesthesia Reactions: No Hx Malignant Hyperthermia: No Meds Allergies/Adverse Reactions: Allergies Allergy/AdvReac Type Severity Reaction Status Date / Time No Known Allergies Allergy Verified 08/04/18 11:09 - Medications Medications: Current Medications Acetaminophen (Tylenol 325mg Tab) 650 mg PO Q6 PRN PRN Reason: Fever >100.4 F Acetaminophen (Tylenol 325mg Tab) 650 mg PO Q6 PRN PRN Reason: Pain, moderate (4-7) Amlodipine Besylate (Norvasc) 10 mg PO DAILY [facility] Last Admin: 08/05/18 10:17 Dose: 10 mg [facility] Last Admin: 08/05/18 08:05 Dose: 1,334 mg Carvedilol (Coreg) 6.25 mg PO DAILY [facility] Last Admin: 08/05/18 10:15 Dose: 6.25 mg Docusate Sodium (Colace) 100 mg PO BID [facility] Last Admin: 08/05/18 10:14 Dose: 100 mg Epoetin Chato (Procrit) 4,000 unit IV [facility] Famotidine (Pepcid) 20 mg PO DAILY [facility] Last Admin: 08/05/18 10:17 Dose: 20 mg Glimepiride (Amaryl) 4 mg PO DAILY [facility] Last Admin: 08/05/18 10:14 Dose: 4 mg Heparin Sodium (Porcine) (Heparin) 5,000 units SC Q8 [facility] Last Admin: 08/05/18 05:00 Dose: 5,000 units Heparin Sodium (Porcine) (Heparin) 2,000 units IVP [facility] Piperacillin Sod/Tazobactam Sod (Zosyn 2.25 Gm Iv Premix) 2.25 gm in 50 mls @ 100 mls/hr IVPB Q12H [facility]; Protocol Last Admin: 08/05/18 10:17 Dose: 100 mls/hr Insulin Aspart (Novolog) 0 unit SC ACHS [facility]; Protocol Last Admin: 08/05/18 08:06 Dose: 2 units Insulin Glargine (Lantus) 30 unit SC HS [facility] Last Admin: 08/04/18 22:13 Dose: 30 units Lamotrigine (Lamictal) 25 mg PO BID [facility] Last Admin: 08/05/18 10:17 Dose: 25 mg Losartan Potassium (Cozaar) 100 mg PO DAILY [facility] Last Admin: 01/02/19 10:15 Dose: 100 mg Tamsulosin HCl (Flomax) 0.4 mg PO DAILY [facility] Last Admin: 08/05/18 10:15 Dose: 0.4 mg Vitamin B Complex/Vit C/Folic Acid (Nephro-Poly) 1 tab PO 0800 [facility] Physical Exam - Constitutional Appears: Well, Non-toxic, No Acute Distress - Extremities Exam Additional comments: Lower extremity focused exam: Vasc: DP/PT pulses palpable 2/4 B/L. Temperature gradient warm to cool B/L. CFT < 3 sec to all digits. No pedal edema noted Derm: Hyperkeratotic tissue noted to entirety of distal tip of right hallux with centrally located ulceration to plantar aspect of distal phalanx. Ulcer is ci rcular, approx 0.4cm in diameter and 0.1cm in depth with no active drainage, no malodor, no purulence, no fluctuance, no alexus wound erythema. Digit is hyperpigmented. No evidence of necrosis or gangrenous changes at present. Deep tissue injuries noted to bilateral posteroplantar heels. No breaks in skin or soft tissue of heels noted B/L. Neuro: protective sensation grossly intact Ortho: no tenderness to palpation of right great toe ulceration or bilateral plantar heels at site of deep tissue injuries - Neurological Exam Neurological exam: Alert - Psychiatric Exam Psychiatric exam: Normal Affect, Normal Mood Results - Vital Signs Recent Vital Signs: Last Vital Signs Temp 98.6 F 08/05/18 07:52 Pulse 82 08/05/18 07:52 Resp 20 08/05/18 07:52 BP 161/65 H 08/05/18 07:52 Pulse Ox 97 08/05/18 07:52 - Labs Result Diagrams: 08/04/18 11:56 08/04/18 11:56 Labs: Laboratory Results - last 24 hr 08/04/18 08/04/18 08/04/18 11:56 11:56 11:56 WBC 12.0 H D RBC 3.34 L Hgb 9.6 L Hct 29.0 L MCV 86.6 D MCH 28.6 MCHC 33.1 RDW 14.8 H Plt Count 194 MPV 8.8 Neut % (Auto) 84.1 H Lymph % (Auto) 8.9 L [place] % (Auto) 5.8 Eos % (Auto) 0.8 Baso % (Auto) 0.4 Neut # (Auto) 10.1 H Lymph # (Auto) 1.1 [place] # (Auto) 0.7 Eos # (Auto) 0.1 Baso # (Auto) 0.0 Neutrophils % (Manual) 81 H Band Neutrophils % 2 Lymphocytes % (Manual) 9 L Monocytes % (Manual) 7 Eosinophils % (Manual) 1 Platelet Estimate Normal Polychromasia Slight Hypochromasia (manual) Slight Anisocytosis (manual) Slight ESR PT 12.5 H INR 1.1 APTT 28 pO2 VBG pH VBG pCO2 VBG HCO3 VBG Total CO2 VBG O2 Sat (Calc) VBG Base Excess VBG Potassium Glucose Lactate Sodium 134 Potassium 3.9 Chloride 93 L Carbon Dioxide 30 Anion Gap 15 BUN 43 H Creatinine 7.8 H* D Est GFR ( Amer) 8 Est GFR (Non-Af Amer) 7 POC Glucose (mg/dL) Random Glucose 228 H Calcium 8.3 L Phosphorus 3.8 Magnesium 2.3 Total Bilirubin 0.6 AST 96 H D ALT 75 H D Alkaline Phosphatase 103 Troponin I < 0.0120 C-Reactive Protein NT-Pro-B Natriuret Pep 65859 H Total Protein 6.9 Albumin 3.6 Globulin 3.4 Albumin/Globulin Ratio 1.1 Venous Blood Potassium Influenza Typ A,B (EIA) 08/04/18 08/04/18 08/04/18 11:56 12:00 16:48 WBC RBC Hgb Hct MCV MCH MCHC RDW Plt Count MPV Neut % (Auto) Lymph % (Auto) [place] % (Auto) Eos % (Auto) Baso % (Auto) Neut # (Auto) Lymph # (Auto) [place] # (Auto) Eos # (Auto) Baso # (Auto) Neutrophils % (Manual) Band Neutrophils % Lymphocytes % (Manual) Monocytes % (Manual) Eosinophils % (Manual) Platelet Estimate Polychromasia Hypochromasia (manual) Anisocytosis (manual) ESR PT INR APTT pO2 23 L VBG pH 7.46 H VBG pCO2 42 VBG HCO3 27.7 VBG Total CO2 31.2 H VBG O2 Sat (Calc) 48.6 VBG Base Excess 5.4 H VBG Potassium 3.5 L Glucose 208 H Lactate 1.7 Sodium 136.0 Potassium Chloride 99.0 Carbon Dioxide Anion Gap BUN Creatinine Est GFR ( Amer) Est GFR (Non-Af Amer) POC Glucose (mg/dL) 438 H* Random Glucose Calcium Phosphorus Magnesium Total Bilirubin AST ALT Alkaline Phosphatase Troponin I C-Reactive Protein NT-Pro-B Natriuret Pep Total Protein Albumin Globulin Albumin/Globulin Ratio Venous Blood Potassium 3.5 L Influenza Typ A,B (EIA) Negative for flu a/b 08/04/18 08/05/18 08/05/18 21:14 02:42 07:00 WBC RBC Hgb Hct MCV MCH MCHC RDW Plt Count MPV Neut % (Auto) Lymph % (Auto) [place] % (Auto) Eos % (Auto) Baso % (Auto) Neut # (Auto) Lymph # (Auto) [place] # (Auto) Eos # (Auto) Baso # (Auto) Neutrophils % (Manual) Band Neutrophils % Lymphocytes % (Manual) Monocytes % (Manual) Eosinophils % (Manual) Platelet Estimate Polychromasia Hypochromasia (manual) Anisocytosis (manual) ESR 124 H PT INR APTT pO2 VBG pH VBG pCO2 VBG HCO3 VBG Total CO2 VBG O2 Sat (Calc) VBG Base Excess VBG Potassium Glucose Lactate Sodium Potassium Chloride Carbon Dioxide Anion Gap BUN Creatinine Est GFR ( Amer) Est GFR (Non-Af Amer) POC Glucose (mg/dL) 327 H 196 H Random Glucose Calcium Phosphorus Magnesium Total Bilirubin AST ALT Alkaline Phosphatase Troponin I C-Reactive Protein NT-Pro-B Natriuret Pep Total Protein Albumin Globulin Albumin/Globulin Ratio Venous Blood Potassium Influenza Typ A,B (EIA) 08/05/18 08/05/18 07:00 07:27 WBC RBC Hgb Hct MCV MCH MCHC RDW Plt Count MPV Neut % (Auto) Lymph % (Auto) [place] % (Auto) Eos % (Auto) Baso % (Auto) Neut # (Auto) Lymph # (Auto) [place] # (Auto) Eos # (Auto) Baso # (Auto) Neutrophils % (Manual) Band Neutrophils % Lymphocytes % (Manual) Monocytes % (Manual) Eosinophils % (Manual) Platelet Estimate Polychromasia Hypochromasia (manual) Anisocytosis (manual) ESR PT INR APTT pO2 VBG pH VBG pCO2 VBG HCO3 VBG Total CO2 VBG O2 Sat (Calc) VBG Base Excess VBG Potassium Glucose Lactate Sodium Potassium Chloride Carbon Dioxide Anion Gap BUN Creatinine Est GFR ( Amer) Est GFR (Non-Af Amer) POC Glucose (mg/dL) 167 H Random Glucose Calcium Phosphorus Magnesium Total Bilirubin AST ALT Alkaline Phosphatase Troponin I C-Reactive Protein 218.90 H NT-Pro-B Natriuret Pep Total Protein Albumin Globulin Albumin/Globulin Ratio Venous Blood Potassium Influenza Typ A,B (EIA) Assessment & Plan - Assessment and Plan (Free Text) Assessment: 78 y/o male with 1) right great toe ulceration and 2) bilateral heel deep tissue injuries likely secondary to pressure and bedbound status Plan Pt seen and evaluated at bedside Discussed plan with attending Dr. Rodriguez Jenkins Pt is currently afebrile; ESR 124 Foot x-rays ordered, pending Prior wound culture on 07/01/18 shows growth of Corynebacterium, Beta hemolytic group B Strep At present no fluid or wound base able to culture Arterial duplex studies ordered of lower extremities Multipodus boots ordered, to be worn at all times in bed Optifoam dressings applied to heels; dry dressing applied to right great toe Bactroban ointment ordered for right great toe Podiatry will continue to follow
--- NOTE | 2018-08-05 12:57 | CP.PCM.CON ---
History of Present Illness - History of Present Illness History of Present Illness: Nephrology Consultation Note: Assessment: Stable Rt foot cellulitis and Pneumonia Diabetic chronic Kidney Disease (E11.22) Hypertensive Chronic Kidney Disease (I12.0) End stage renal disease (N18.6) dependence on hemodialysis (Z99.2) (MWF) via AVF Anemia (D64.9), Hyperphosphatemia (E83.39), Secondary Hyperparathyroidism (E21.1), HTN (I12.0) Plan: Will plan for HD MWF schedule as ordered. Continue with Nephrovite 1 tab/day. PRBC as needed for anemia.on LESLI with dialysis as last Hb 9.6 Continue with phos binders, last phos level: 3.8 BP control with meds as ordered. Patient on RAAS ish Glycemic control, Dialysis consistent diet Further work up/management as per primary team Dose meds/antibiotics (if needed) for ESRD status. Avoid fleets enema/magnesium based laxatives. Thanks for allowing me to participate in care of your patient. Will follow patient with you. Please call if any Qs Dr Edwardo Valenzuela Office: [phone] Chief Complaint;Rt toe infection and cough HPI: Pt is a 78 year old male with PMHx of DM, HTN, HLD, ESRD on dialysis (MWF), CAD s/p CABG, AVR, BPH and Bipolar disorder presents to ED complaining of cough x 2 weeks and redness, swelling of the right big toe and admitted for cellulitis, pneumonia. Renal consult requested for ESRD management. last HD friday. otherwise feels usual health ROS: Cardiovascular: No chest pain. Pulmonary: No shortness of breath . has cough but better Gastrointestinal: denies abdominal pain No nausea. No vomiting. Genitourinary: No pain while urinating. Denies blood in urine. All other negative except as mentioned in HPI Physical Examination: General Appearance: Comfortable, in no acute respiratory distress, co-operative . Vitals reviewed and noted as below Head; Atraumatic, normocephalic ENT: no ulcers no thrush. Tongue is midline. Oropharynx: no rash or ulcers. EYES: Pupils are equal, round and reactive to light accommodation. Eye muscles and extraocular movement intact. Sclera is anicteric. Neck; supple no lymphadenopathy, no thyromegaly or bruit Lungs: Normal respiratory rate/effort. Breath sounds bilateral equal and few basal crackle Heart: Normal rate. s1s2 normal. No rub or gallop. Extremities: no edema. No varicose veins. Rt foot dressed Neurological: Patient is alert, awake and oriented to person, place and time. No focal deficit. Strength bilateral appropriate and equal Skin: Warm and dry. Normal turgor. No rash. Palpitation: Normal elasticity for age Abdomen: Abdomen is soft. Bowel sounds +. There is no abdominal tenderness, no guarding/rigidity or organomegaly Psych: normal insight and normal affect/mood MSK: no joint tenderness or swelling. Digits and nails normal, no deformity : kidney or bladder not palpable Access: AVF Labs/imaging reviewed. Past medical history, past surgical history, family history, social history, allergy reviewed and noted as below Family Hx: no hx of CKD. Non contributory Past Patient History - Infectious Disease Hx of Infectious Diseases: None - Tetanus Immunizations Tetanus Immunization: Unknown - Past Medical History & Family History Past Medical History?: Yes - Past Social History Smoking Status: Former Smoker Alcohol: None Drugs: Denies Home Situation {Lives}: Alone - CARDIAC Hx Congestive Heart Failure: Yes Hx Hypercholesterolemia: Yes Hx Hypertension: Yes Hx Peripheral Edema: Yes (no longer) - PULMONARY Hx Chronic Obstructive Pulmonary Disease (COPD): Yes Hx Pneumonia: Yes - NEUROLOGICAL Hx Dementia: Yes - HEENT Hx HEENT Problems: Yes Hx Cataracts: Yes (bilat iol) - RENAL Hx Chronic Kidney Disease: Yes Hx Dialysis: Yes - ENDOCRINE/METABOLIC Hx Endocrine Disorders: Yes Hx Diabetes Mellitus Type 1: Yes ((+) diabetic neuropathy) - HEMATOLOGICAL/ONCOLOGICAL Hx Blood Disorders: No - INTEGUMENTARY Hx Dermatological Problems: Yes (ble with discoloration) - MUSCULOSKELETAL/RHEUMATOLOGICAL Hx Arthritis: Yes - GASTROINTESTINAL Hx Gastrointestinal Disorders: Yes Hx Gastroesophageal Reflux: Yes - GENITOURINARY/GYNECOLOGICAL Hx Genitourinary Disorders: Yes Hx Prostate Problems: Yes Other/Comment: BPH - PSYCHIATRIC Hx Bipolar Disorder: Yes Hx Substance Use: No - SURGICAL HISTORY Hx Coronary Artery Bypass Graft: Yes (Aortive valve replacement9 Tissue valve ) in 07/2013 at [facility]) - ANESTHESIA Hx Anesthesia: Yes Hx Anesthesia Reactions: No Hx Malignant Hyperthermia: No Meds Allergies/Adverse Reactions: Allergies Allergy/AdvReac Type Severity Reaction Status Date / Time No Known Allergies Allergy Verified 08/04/18 11:09 - Medications Medications: Current Medications Acetaminophen (Tylenol 325mg Tab) 650 mg PO Q6 PRN PRN Reason: Fever >100.4 F Acetaminophen (Tylenol 325mg Tab) 650 mg PO Q6 PRN PRN Reason: Pain, moderate (4-7) Amlodipine Besylate (Norvasc) 10 mg PO DAILY [facility] Last Admin: 08/05/18 10:17 Dose: 10 mg [facility] ([facility] Last Admin: 08/05/18 08:05 Dose: 1,334 mg Carvedilol (Coreg) 6.25 mg PO DAILY [facility] Last Admin: 08/05/18 10:15 Dose: 6.25 mg Docusate Sodium (Colace) 100 mg PO BID [facility] Last Admin: 08/05/18 10:14 Dose: 100 mg Epoetin Chato (Procrit) 4,000 unit IV [facility] Famotidine (Pepcid) 20 mg PO DAILY [facility] Last Admin: 08/05/18 10:17 Dose: 20 mg Glimepiride (Amaryl) 4 mg PO DAILY [facility] Last Admin: 08/05/18 10:14 Dose: 4 mg Heparin Sodium (Porcine) (Heparin) 5,000 units SC Q8 [facility] Last Admin: 08/05/18 05:00 Dose: 5,000 units Heparin Sodium (Porcine) (Heparin) 2,000 units IVP [facility] Piperacillin Sod/Tazobactam Sod (Zosyn 2.25 Gm Iv Premix) 2.25 gm in 50 mls @ 100 mls/hr IVPB Q12H [facility]; Protocol Last Admin: 08/05/18 10:17 Dose: 100 mls/hr Insulin Aspart (Novolog) 0 unit SC ACHS [facility]; Protocol Last Admin: 08/05/18 08:06 Dose: 2 units Insulin Glargine (Lantus) 30 unit SC HS [facility] Last Admin: 08/04/18 22:13 Dose: 30 units Lamotrigine (Lamictal) 25 mg PO BID [facility] Last Admin: 08/05/18 10:17 Dose: 25 mg Losartan Potassium (Cozaar) 100 mg PO DAILY [facility] Last Admin: 08/05/18 10:15 Dose: 100 mg Tamsulosin HCl (Flomax) 0.4 mg PO DAILY [facility] Last Admin: 08/05/18 10:15 Dose: 0.4 mg Vitamin B Complex/Vit C/Folic Acid (Nephro-Poly) 1 tab PO 0800 [facility] Results - Vital Signs Recent Vital Signs: Last Vital Signs Temp 98.6 F 08/05/18 07:52 Pulse 82 08/05/18 07:52 Resp 20 08/05/18 07:52 BP 161/65 H 08/05/18 07:52 Pulse Ox 97 08/05/18 07:52 - Labs Result Diagrams: 08/04/18 11:56 08/04/18 11:56 Labs: Laboratory Results - last 24 hr 08/04/18 08/04/18 08/04/18 11:56 11:56 11:56 WBC 12.0 H D RBC 3.34 L Hgb 9.6 L Hct 29.0 L MCV 86.6 D MCH 28.6 MCHC 33.1 RDW 14.8 H Plt Count 194 MPV 8.8 Neut % (Auto) 84.1 H Lymph % (Auto) 8.9 L [place] % (Auto) 5.8 Eos % (Auto) 0.8 Baso % (Auto) 0.4 Neut # (Auto) 10.1 H Lymph # (Auto) 1.1 [place] # (Auto) 0.7 Eos # (Auto) 0.1 Baso # (Auto) 0.0 Neutrophils % (Manual) 81 H Band Neutrophils % 2 Lymphocytes % (Manual) 9 L Monocytes % (Manual) 7 Eosinophils % (Manual) 1 Platelet Estimate Normal Polychromasia Slight Hypochromasia (manual) Slight Anisocytosis (manual) Slight ESR PT 12.5 H INR 1.1 APTT 28 pO2 VBG pH VBG pCO2 VBG HCO3 VBG Total CO2 VBG O2 Sat (Calc) VBG Base Excess VBG Potassium Glucose Lactate Sodium 134 Potassium 3.9 Chloride 93 L Carbon Dioxide 30 Anion Gap 15 BUN 43 H Creatinine 7.8 H* D Est GFR ( Amer) 8 Est GFR (Non-Af Amer) 7 POC Glucose (mg/dL) Random Glucose 228 H Calcium 8.3 L Phosphorus 3.8 Magnesium 2.3 Total Bilirubin 0.6 AST 96 H D ALT 75 H D Alkaline Phosphatase 103 Troponin I < 0.0120 C-Reactive Protein NT-Pro-B Natriuret Pep 02539 H Total Protein 6.9 Albumin 3.6 Globulin 3.4 Albumin/Globulin Ratio 1.1 Venous Blood Potassium Influenza Typ A,B (EIA) 08/04/18 08/04/18 08/04/18 11:56 12:00 16:48 WBC RBC Hgb Hct MCV MCH MCHC RDW Plt Count MPV Neut % (Auto) Lymph % (Auto) [place] % (Auto) Eos % (Auto) Baso % (Auto) Neut # (Auto) Lymph # (Auto) [place] # (Auto) Eos # (Auto) Baso # (Auto) Neutrophils % (Manual) Band Neutrophils % Lymphocytes % (Manual) Monocytes % (Manual) Eosinophils % (Manual) Platelet Estimate Polychromasia Hypochromasia (manual) Anisocytosis (manual) ESR PT INR APTT pO2 23 L VBG pH 7.46 H VBG pCO2 42 VBG HCO3 27.7 VBG Total CO2 31.2 H VBG O2 Sat (Calc) 48.6 VBG Base Excess 5.4 H VBG Potassium 3.5 L Glucose 208 H Lactate 1.7 Sodium 136.0 Potassium Chloride 99.0 Carbon Dioxide Anion Gap BUN Creatinine Est GFR ( Amer) Est GFR (Non-Af Amer) POC Glucose (mg/dL) 438 H* Random Glucose Calcium Phosphorus Magnesium Total Bilirubin AST ALT Alkaline Phosphatase Troponin I C-Reactive Protein NT-Pro-B Natriuret Pep Total Protein Albumin Globulin Albumin/Globulin Ratio Venous Blood Potassium 3.5 L Influenza Typ A,B (EIA) Negative for flu a/b 08/04/18 08/05/18 08/05/18 21:14 02:42 07:00 WBC RBC Hgb Hct MCV MCH MCHC RDW Plt Count MPV Neut % (Auto) Lymph % (Auto) [place] % (Auto) Eos % (Auto) Baso % (Auto) Neut # (Auto) Lymph # (Auto) [place] # (Auto) Eos # (Auto) Baso # (Auto) Neutrophils % (Manual) Band Neutrophils % Lymphocytes % (Manual) Monocytes % (Manual) Eosinophils % (Manual) Platelet Estimate Polychromasia Hypochromasia (manual) Anisocytosis (manual) ESR 124 H PT INR APTT pO2 VBG pH VBG pCO2 VBG HCO3 VBG Total CO2 VBG O2 Sat (Calc) VBG Base Excess VBG Potassium Glucose Lactate Sodium Potassium Chloride Carbon Dioxide Anion Gap BUN Creatinine Est GFR ( Amer) Est GFR (Non-Af Amer) POC Glucose (mg/dL) 327 H 196 H Random Glucose Calcium Phosphorus Magnesium Total Bilirubin AST ALT Alkaline Phosphatase Troponin I C-Reactive Protein NT-Pro-B Natriuret Pep Total Protein Albumin Globulin Albumin/Globulin Ratio Venous Blood Potassium Influenza Typ A,B (EIA) 08/05/18 08/05/18 07:00 07:27 WBC RBC Hgb Hct MCV MCH MCHC RDW Plt Count MPV Neut % (Auto) Lymph % (Auto) [place] % (Auto) Eos % (Auto) Baso % (Auto) Neut # (Auto) Lymph # (Auto) [place] # (Auto) Eos # (Auto) Baso # (Auto) Neutrophils % (Manual) Band Neutrophils % Lymphocytes % (Manual) Monocytes % (Manual) Eosinophils % (Manual) Platelet Estimate Polychromasia Hypochromasia (manual) Anisocytosis (manual) ESR PT INR APTT pO2 VBG pH VBG pCO2 VBG HCO3 VBG Total CO2 VBG O2 Sat (Calc) VBG Base Excess VBG Potassium Glucose Lactate Sodium Potassium Chloride Carbon Dioxide Anion Gap BUN Creatinine Est GFR ( Amer) Est GFR (Non-Af Amer) POC Glucose (mg/dL) 167 H Random Glucose Calcium Phosphorus Magnesium Total Bilirubin AST ALT Alkaline Phosphatase Troponin I C-Reactive Protein 218.90 H NT-Pro-B Natriuret Pep Total Protein Albumin Globulin Albumin/Globulin Ratio Venous Blood Potassium Influenza Typ A,B (EIA)
[2018-08-05] MEDS: EPOETIN ALFA 4,000 UNIT/ML ML Dialysis IV SCH (14:45)
--- NOTE | 2018-08-05 18:17 | CARD ---
APPROVED REPORT Date of service: 08/04/2018 EKG Measurement Heart [id number] <Conclusion> Normal sinus rhythm Nonspecific ST and T wave abnormality Abnormal ECG
[2018-08-05] MEDS: (Lantus) Insulin Glargine, Recombinant SC SCH (22:53)
[2018-08-06] MEDS: (Novolog) Insulin Aspart, Recombinant 100 u/ml 10 ml vial SC SCH ×4 (07:43→21:36)
[2018-08-06] MEDS: Multivitamin Vitamin B Complex (Nephro-Vite) Tab PO SCH (07:44)
--- NOTE | 2018-08-06 08:47 | CP.PCM.PN ---
Subjective - Date & Time of Evaluation Date of Evaluation: 08/05/18 Time of Evaluation: 19:30 - Subjective Subjective: Patient was evaluated by Podiatry and Nephrology. Has o complaint of SOB. Cough improving. Afebrile. Objective - Vital Signs/Intake and Output Vital Signs (last 24 hours): Temp Pulse Resp BP Pulse Ox 98.2 F 74 20 149/67 97 08/05/18 23:54 08/05/18 23:54 08/05/18 23:54 08/05/18 23:54 08/05/18 23:54 Intake and Output: 08/06/18 08/06/18 06:59 18:59 Intake Total 750 Balance 750 - Medications Medications: Current Medications Acetaminophen (Tylenol 325mg Tab) 650 mg PO Q6 PRN PRN Reason: Fever >100.4 F Acetaminophen (Tylenol 325mg Tab) 650 mg PO Q6 PRN PRN Reason: Pain, moderate (4-7) Amlodipine Besylate (Norvasc) 10 mg PO DAILY [facility] Last Admin: 08/05/18 10:17 Dose: 10 mg [facility] Last Admin: 08/06/18 07:44 Dose: 1,334 mg Carvedilol (Coreg) 6.25 mg PO DAILY [facility] Last Admin: 08/05/18 10:15 Dose: 6.25 mg Docusate Sodium (Colace) 100 mg PO BID [facility] Last Admin: 08/05/18 17:34 Dose: 100 mg Epoetin Chato (Procrit) 4,000 unit IV MWF [facility] Last Admin: 08/05/18 14:45 Dose: 4,000 unit Famotidine (Pepcid) 20 mg PO DAILY [facility] Last Admin: 08/05/18 10:17 Dose: 20 mg Glimepiride (Amaryl) 4 mg PO DAILY [facility] Last Admin: 08/05/18 10:14 Dose: 4 mg Heparin Sodium (Porcine) (Heparin) 5,000 units SC Q8 [facility] Last Admin: 08/06/18 05:25 Dose: 5,000 units Heparin Sodium (Porcine) (Heparin) 2,000 units IVP MWF [facility] Last Admin: 08/05/18 14:46 Dose: 2,000 units Piperacillin Sod/Tazobactam Sod (Zosyn 2.25 Gm Iv Premix) 2.25 gm in 50 mls @ 100 mls/hr IVPB Q12H [facility]; Protocol Last Admin: 08/05/18 22:54 Dose: 100 mls/hr Insulin Aspart (Novolog) 0 unit SC ACHS [facility]; Protocol Last Admin: 08/06/18 07:43 Dose: 4 units Insulin Glargine (Lantus) 30 unit SC HS [facility] Last Admin: 08/05/18 22:53 Dose: 30 units Lamotrigine (Lamictal) 25 mg PO BID [facility] Last Admin: 08/05/18 17:33 Dose: 25 mg Losartan Potassium (Cozaar) 100 mg PO DAILY [facility] Last Admin: 08/05/18 10:15 Dose: 100 mg Tamsulosin HCl (Flomax) 0.4 mg PO DAILY [facility] Last Admin: 08/05/18 10:15 Dose: 0.4 mg Vitamin B Complex/Vit C/Folic Acid (Nephro-Poly) 1 tab PO 0800 [facility] Last Admin: 08/06/18 07:44 Dose: 1 tab - Labs Labs: 08/04/18 11:56 08/04/18 11:56 PT 12.5 SECONDS (9.7-12.2) H 08/04/18 11:56 INR 1.1 08/04/18 11:56 APTT 28 SECONDS (21-34) 08/04/18 11:56 - Constitutional Appears: No Acute Distress, Chronically Ill - Head Exam Head Exam: NORMAL INSPECTION - Eye Exam Eye Exam: Normal appearance - ENT Exam ENT Exam: Normal Exam - Neck Exam Neck Exam: Normal Inspection - Respiratory Exam Respiratory Exam: Rhonchi Additional comments: Few rhonchi at both bases. - Cardiovascular Exam Cardiovascular Exam: REGULAR RHYTHM, Murmur - GI/Abdominal Exam GI & Abdominal Exam: Soft, Normal Bowel Sounds - Rectal Exam Rectal Exam: Deferred - Extremities Exam Additional comments: Right toe ulcer, Right heel pressure sores. - Back Exam Back Exam: NORMAL INSPECTION - Neurological Exam Neurological Exam: Alert, Awake, Oriented x3 - Psychiatric Exam Psychiatric exam: Anxious Assessment and Plan (1) Ischemic ulcer of heel with necrosis of muscle Assessment & Plan: To continue IV antibiotics. Status: Acute (2) Gangrene of toe of right foot Assessment & Plan: IV antibiotics. Status: Acute (3) Right middle lobe pneumonia Assessment & Plan: To continue IV antibiotics. Status: Acute (4) Uncontrolled diabetes mellitus Assessment & Plan: To adjust Insulin dosage to control blood glucose. Status: Chronic (5) ESRD on hemodialysis Assessment & Plan: Hemodialysis as per Nephrologists. Status: Chronic
[2018-08-06] MEDS: Piperacill/Tazo 2.25gm in Dex 2.25 GM/50 ML BAG IVPB SCH ×2 (09:58→21:37)
--- NOTE | 2018-08-06 10:17 | CP.PCM.PN ---
Subjective - Date & Time of Evaluation Date of Evaluation: 08/06/18 Time of Evaluation: 10:17 - Subjective Subjective: Podiatry Progress Note - Dr. Rodriguez Jenkins 78 y/o male seen at bedside this morning for bilateral heel deep tissue injuries and right great toe ulcer. pt resting in bed comfortably in NAD. Denies pain to the lower extremities. Admits to continued mild cough. Denies any new pedal complaints. Objective - Vital Signs/Intake and Output Vital Signs (last 24 hours): Temp Pulse Resp BP Pulse Ox 98.7 F 90 20 169/66 H 96 08/06/18 08:00 08/06/18 08:00 08/06/18 08:00 08/06/18 08:00 08/06/18 08:00 Intake and Output: 08/06/18 08/06/18 06:59 18:59 Intake Total 750 Balance 750 - Medications Medications: Current Medications Acetaminophen (Tylenol 325mg Tab) 650 mg PO Q6 PRN PRN Reason: Fever >100.4 F Acetaminophen (Tylenol 325mg Tab) 650 mg PO Q6 PRN PRN Reason: Pain, moderate (4-7) Amlodipine Besylate (Norvasc) 10 mg PO DAILY [facility] Last Admin: 08/06/18 09:09 Dose: 10 mg [facility]) [facility] Last Admin: 08/06/18 07:44 Dose: 1,334 mg Carvedilol (Coreg) 6.25 mg PO DAILY [facility] Last Admin: 08/06/18 09:09 Dose: 6.25 mg Docusate Sodium (Colace) 100 mg PO BID [facility] Last Admin: 08/06/18 09:09 Dose: 100 mg Epoetin Chato (Procrit) 4,000 unit IV [facility] Last Admin: 08/05/18 14:45 Dose: 4,000 unit Famotidine (Pepcid) 20 mg PO DAILY [facility] Last Admin: 08/06/18 09:09 Dose: 20 mg Glimepiride (Amaryl) 4 mg PO DAILY [facility] Last Admin: 08/06/18 09:09 Dose: 4 mg Heparin Sodium (Porcine) (Heparin) 5,000 units SC Q8 [facility] Last Admin: 08/06/18 05:25 Dose: 5,000 units Heparin Sodium (Porcine) (Heparin) 2,000 units IVP F [facility] Last Admin: 08/05/18 14:46 Dose: 2,000 units Piperacillin Sod/Tazobactam Sod (Zosyn 2.25 Gm Iv Premix) 2.25 gm in 50 mls @ 100 mls/hr IVPB Q12H [facility]; Protocol Last Admin: 08/06/18 09:58 Dose: 100 mls/hr Insulin Aspart (Novolog) 0 unit SC ACHS [facility]; Protocol Last Admin: 08/06/18 07:43 Dose: 4 units Insulin Glargine (Lantus) 30 unit SC HS [facility] Last Admin: 08/05/18 22:53 Dose: 30 units Lamotrigine (Lamictal) 25 mg PO BID [facility] Last Admin: 08/06/18 09:09 Dose: 25 mg Losartan Potassium (Cozaar) 100 mg PO DAILY [facility] Last Admin: 08/06/18 09:09 Dose: 100 mg Tamsulosin HCl (Flomax) 0.4 mg PO DAILY [facility] Last Admin: 08/06/18 09:09 Dose: 0.4 mg Vitamin B Complex/Vit C/Folic Acid (Nephro-Poly) 1 tab PO 0800 [facility] Last Admin: 08/06/18 07:44 Dose: 1 tab - Labs Labs: 08/04/18 11:56 08/04/18 11:56 PT 12.5 SECONDS (9.7-12.2) H 08/04/18 11:56 INR 1.1 08/04/18 11:56 APTT 28 SECONDS (21-34) 08/04/18 11:56 - Constitutional Appears: Well, Non-toxic, No Acute Distress - Extremities Exam Additional comments: Lower extremity focused exam: Vasc: DP/PT pulses palpable 2/4 B/L. Temperature gradient warm to cool B/L. CFT < 3 sec to all digits. No pedal edema noted Derm: Hyperkeratotic tissue noted to entirety of distal tip of right hallux with centrally located ulceration to plantar aspect of distal phalanx. Ulcer is circular, approx 0.4cm in diameter and 0.1cm in depth with no active drainage, no malodor, no purulence, no fluctuance, no alexus wound erythema. Digit is hyperpigmented. No evidence of necrosis or gangrenous changes at present. Deep tissue injuries noted to bilateral posteroplantar heels. No breaks in skin or soft tissue of heels noted B/L. Neuro: protective sensation grossly intact Ortho: no tenderness to palpation of right great toe ulceration or bilateral plantar heels at site of deep tissue injuries - Neurological Exam Neurological Exam: Alert, Awake - Psychiatric Exam Psychiatric exam: Normal Affect, Normal Mood Assessment and Plan - Assessment and Plan (Free Text) Assessment: 78 y/o male with 1) right great toe ulceration and 2) bilateral heel deep tissue injuries likely secondary to pressure and bedbound status Plan Pt seen and evaluated at bedside Discussed plan with attending Dr. Rodriguez Jenkins Pt is currently afebrile; ESR 124 Foot x-rays show no acute osseous findings, no evidence of osteomyelitis Arterial duplex studies show no significant arterial insufficiency Podiatry will continue with local wound care - no plans for surgical intervention Multipodus boots are to be worn at all times in bed Optifoam dressings applied to heels; dry sterile dressing applied to right great toe Podiatry will continue to follow
--- NOTE | 2018-08-06 13:36 | VASCLAB ---
Date of service: 08/06/2018 STUDY DESCRIPTION: Lower Extremity Arterial Exam (PVR). HISTORY: bilateral LE ulcers; evaluate circulation PRIORS: None. TECHNIQUE: Pulse volume recording waveforms and segmental pressures of bilateral lower extremities at multiple levels were obtained. Ankle Brachial Indices (ABIs) were calculated. Report prepared by LINDSAY Thurston, RVT RIGHT LOWER EXTREMITY: * Brachial artery: Pressure - 144 mmHg. * High thigh: Pressure - mmHg: Ratio - : PVR waveform - Pulsatile * Low thigh: Pressure - mmHg: Ratio - PVR waveform: Pulsatile * Calf: Pressure - 174 mmHg: Ratio - 1.21 PVR waveform: Pulsatile * Posterior tibial Artery: Pressure - 167 mmHg: Ratio - 1.16 PVR waveform: Pulsatile * Dorsalis pedis Artery: Pressure - 151 mmHg: Ratio - 1.05 PVR waveform: Pulsatile * Great toe: Pressure - mmHg: Ratio - PVR waveform: Ankle brachial index (ROSAMARIA): 1.16 LEFT LOWER EXTREMITY: * Brachial artery: Pressure - mmHg. * High thigh: Pressure - mmHg: Ratio - : PVR waveform - Pulsatile * Low thigh: Pressure - mmHg: Ratio - PVR waveform: Pulsatile * Calf: Pressure - 169 mmHg: Ratio - 1.17 PVR waveform: Pulsatile * Posterior tibial Artery: Pressure - 163 mmHg: Ratio - 1.13 PVR waveform: Pulsatile * Dorsalis pedis Artery: Pressure - 154 mmHg: Ratio - 1.07 PVR waveform: Pulsatile * Great toe: Pressure - mmHg: Ratio - PVR waveform: Ankle brachial index (ROSAMARIA): 1.13 OTHER FINDINGS: Right: Left: IMPRESSION: Right: There was no evidence of hemodynamically significant arterial insufficiency in the right lower extremity. Left: There was no evidence of hemodynamically significant arterial insufficiency in the left lower extremity.
--- NOTE | 2018-08-06 15:25 | RAD ---
Date of service: 08/06/2018 PROCEDURE: Bilateral Feet Radiographs. HISTORY: wounds COMPARISON: None. FINDINGS: BONES: Right Foot: No fracture or gross periosteal reaction noted. Left Foot: No fracture or gross periosteal reaction noted. JOINTS: Right Foot: Arthrosis Left Foot: Arthrosis SOFT TISSUES: Right Foot: No gas-forming cellulitis seen. Left Foot: No gas-forming cellulitis seen. OTHER FINDINGS: Prominent inferior right calcaneal spurring Salisbury's tendon insetional enesthesophyte. IMPRESSION: No radiographic evidence of osteomyelitis. Other findings as above.
--- NOTE | 2018-08-06 15:32 | CP.PCM.PN ---
Subjective - Date & Time of Evaluation Date of Evaluation: 08/06/18 Time of Evaluation: 15:31 - Subjective Subjective: Nephrology Consultation Note: Assessment: Stable Rt foot cellulitis and Pneumonia Diabetic chronic Kidney Disease (E11.22) Hypertensive Chronic Kidney Disease (I12.0) End stage renal disease (N18.6) dependence on hemodialysis (Z99.2) (MWF) via AVF Anemia (D64.9), Hyperphosphatemia (E83.39), Secondary Hyperparathyroidism (E21.1), HTN (I12.0) Plan: Will plan for HD MWF schedule as ordered. Continue with Nephrovite 1 tab/day. PRBC as needed for anemia.on LESLI with dialysis as last Hb 9.6 Continue with phos binders, last phos level: 3.8 BP control with meds as ordered. Patient on RAAS ish Glycemic control, Dialysis consistent diet Further work up/management as per primary team Dose meds/antibiotics (if needed) for ESRD status. Avoid fleets enema/magnesium based laxatives. Thanks for allowing me to participate in care of your patient. Will follow patient with you. Please call if any Qs Dr Edwardo Valenzuela Office: [phone] Chief Complaint;Rt toe infection and cough HPI: Pt is a 78 year old male with PMHx of DM, HTN, HLD, ESRD on dialysis (MWF), CAD s/p CABG, AVR, BPH and Bipolar disorder presents to ED complaining of cough x 2 weeks and redness, swelling of the right big toe and admitted for cellulitis, pneumonia. Renal consult requested for ESRD management. last HD friday. otherwise feels usual health ROS: Cardiovascular: No chest pain. Pulmonary: No shortness of breath . has cough but better Gastrointestinal: denies abdominal pain No nausea. No vomiting. Genitourinary: No pain while urinating. Denies blood in urine. All other negative except as mentioned in HPI Physical Examination: General Appearance: Comfortable, in no acute respiratory distress, co-operative . Vitals reviewed and noted as below Head; Atraumatic, normocephalic ENT: no ulcers no thrush. Tongue is midline. Oropharynx: no rash or ulcers. EYES: Pupils are equal, round and reactive to light accommodation. Eye muscles and extraocular movement intact. Sclera is anicteric. Neck; supple no lymphadenopathy, no thyromegaly or bruit Lungs: Normal respiratory rate/effort. Breath sounds bilateral equal and clear Heart: Normal rate. s1s2 normal. No rub or gallop. Extremities: no edema. No varicose veins. Rt foot dressed Neurological: Patient is alert, awake and oriented to person, place and time. No focal deficit. Strength bilateral appropriate and equal Skin: Warm and dry. Normal turgor. No rash. Palpitation: Normal elasticity for age Abdomen: Abdomen is soft. Bowel sounds +. There is no abdominal tenderness, no guarding/rigidity or organomegaly Psych: normal insight and normal affect/mood MSK: no joint tenderness or swelling. Digits and nails normal, no deformity : kidney or bladder not palpable Access: AVF Labs/imaging reviewed. Past medical history, past surgical history, family history, social history, allergy reviewed and noted as below Family Hx: no hx of CKD. Non contributory Objective - Vital Signs/Intake and Output Vital Signs (last 24 hours): Temp Pulse Resp BP Pulse Ox 98.7 F 90 20 169/66 H 96 08/06/18 08:00 08/06/18 08:00 08/06/18 08:00 08/06/18 08:00 08/06/18 08:00 Intake and Output: 08/06/18 08/06/18 06:59 18:59 Intake Total 750 Balance 750 - Medications Medications: Current Medications Acetaminophen (Tylenol 325mg Tab) 650 mg PO Q6 PRN PRN Reason: Fever >100.4 F Acetaminophen (Tylenol 325mg Tab) 650 mg PO Q6 PRN PRN Reason: Pain, moderate (4-7) Amlodipine Besylate (Norvasc) 10 mg PO DAILY [facility] Last Admin: 08/06/18 09:09 Dose: 10 mg Calcium Acetate (Phoslo) 1,334 mg PO BIDCC [facility] Last Admin: 08/06/18 07:44 Dose: 1,334 mg Carvedilol (Coreg) 6.25 mg PO DAILY [facility] Last Admin: 08/06/18 09:09 Dose: 6.25 mg Docusate Sodium (Colace) 100 mg PO BID [facility] Last Admin: 08/06/18 09:09 Dose: 100 mg Epoetin Chato (Procrit) 4,000 unit IV MWF [facility] Last Admin: 08/05/18 14:45 Dose: 4,000 unit Famotidine (Pepcid) 20 mg PO DAILY [facility] Last Admin: 08/06/18 09:09 Dose: 20 mg Glimepiride (Amaryl) 4 mg PO DAILY [facility] Last Admin: 08/06/18 09:09 Dose: 4 mg Heparin Sodium (Porcine) (Heparin) 5,000 units SC Q8 [facility] Last Admin: 08/06/18 13:31 Dose: 5,000 units Heparin Sodium (Porcine) (Heparin) 2,000 units IVP [facility] Last Admin: 08/05/18 14:46 Dose: 2,000 units Piperacillin Sod/Tazobactam Sod (Zosyn 2.25 Gm Iv Premix) 2.25 gm in 50 mls @ 100 mls/hr IVPB Q12H [facility]; Protocol Last Admin: 08/06/18 09:58 Dose: 100 mls/hr Insulin Aspart (Novolog) 0 unit SC ACHS [facility]; Protocol Last Admin: 08/06/18 11:41 Dose: 4 units Insulin Glargine (Lantus) 30 unit SC HS [facility] Last Admin: 08/05/18 22:53 Dose: 30 units Lamotrigine (Lamictal) 25 mg PO BID [facility] Last Admin: 08/06/18 09:09 Dose: 25 mg Losartan Potassium (Cozaar) 100 mg PO DAILY [facility] Last Admin: 08/06/18 09:09 Dose: 100 mg Tamsulosin HCl (Flomax) 0.4 mg PO DAILY [facility] Last Admin: 08/06/18 09:09 Dose: 0.4 mg Vitamin B Complex/Vit C/Folic Acid (Nephro-Poly) 1 tab PO 0800 [facility] Last Admin: 08/06/18 07:44 Dose: 1 tab - Labs Labs: 08/04/18 11:56 08/04/18 11:56 PT 12.5 SECONDS (9.7-12.2) H 08/04/18 11:56 INR 1.1 08/04/18 11:56 APTT 28 SECONDS (21-34) 08/04/18 11:56
--- NOTE | 2018-08-06 16:39 | CP.PCM.CON ---
History of Present Illness - History of Present Illness History of Present Illness: 78 year old male was admitted to hospital for pneumonia as well as right great toe ulcer and bilateral heel wounds. Was here one month back and OM ruled out - now has necrotic toe with some pus Podiatry on board Consider va scular studies and MRI right foot May need OR / debridement and or amputation Pt states he has noted drainage to the right big toe x 3 weeks with pus. Also admits he has been having fever and a productive cough for a few days. At present, denies any pain to the lower extremities. Says that when he is at home he is ambulatory but lately he has been mostly bed bound. Denies nausea, vomiting, chills, diarrhea or constipation. PMHx: DM, HTN, HLD, ESRD on dialysis (MWF), CAD s/p CABG, BPH and Bipolar disorder PSHx: CABG (Aortive valve replacement Tissue valve ) in 07/2013 Allergies: NKA SHx: Quit smoking in 2003, Denies EtOH or illicit drug usage Review of Systems - Review of Systems All systems: reviewed and no additional remarkable complaints except - Constitutional Constitutional: As Per HPI - EENT Eyes: absent: As Per HPI, Blind Spots, Blurred Vision, Change in Vision, Decreased Night Vision, Diplopia, Discharge, Dry Eye, Exophthalmos, Floaters, Irritation, Itchy Eyes, Loss of Peripheral Vision, Pain, Photophobia, Requires Corrective Lenses, Sees Flashes, Spots in Vision, Tunnel Vision, Other Visual Disturbances, Loss of Vision, Other Ears: absent: As Per HPI, Decreased Hearing, Ear Discharge, Ear Pain, Tinnitus, Abnormal Hearing, Disequilibrium, Dizziness, Other Nose/Mouth/Throat: absent: As Per HPI, Epistaxis, Nasal Congestion, Nasal Discharge, Nasal Obstruction, Nasal Trauma, Nose Pain, Post Nasal Drip, Sinus Pain, Sinus Pressure, Bleeding Gums, Change in Voice, Dental Pain, Dry Mouth, Dysphagia, Halitosis, Hoarsness, Lip Swelling, Mouth Lesions, Mouth Pain, Odynophagia, Sore Throat, Throat Swelling, Tongue Swelling, Facial Pain, Neck Pain, Neck Mass, Other - Cardiovascular Cardiovascular: As Per HPI - Respiratory Respiratory: absent: As Per HPI, Cough, Dyspnea, Hemoptysis, Dyspnea on Exertion, Wheezing, Snoring, Stridor, Pain on Inspiration, Chest Congestion, Excessive Mucous Production, Change in Mucous Color, Pain with Coughing, Other - Gastrointestinal Gastrointestinal: absent: As Per HPI, Abdominal Pain, Belching, Bloating, Change in Bowel Habits, Change in Stool Character, Coffee Ground Emesis, Constipation, Cramping, Diarrhea, Dyspepsia, Dysphagia, Early Satiety, Excessive Flatus, Fecal Incontinence, Heartburn, Hematemesis, Hematochezia, Loose Stools, Melena, Nausea, Odynophagia, Temesmus, Vomiting, Other - Genitourinary Genitourinary: absent: As Per HPI, Change in Urinary Stream, Difficulty Urinating, Dysuria, Flank Pain, Hematuria, Pyuria, Nocturia, Urinary Incontinence, Urinary Frequency, Urinary Hesitance, Urinary Urgency, Voiding Freq/Small Amts, Freq UTI, Hx Renal/Bladder Calculi, Hx /Renal Surgery, Bladder Distension, Other - Reproductive: Male Reproductive:Male: As Per HPI - Musculoskeletal Musculoskeletal: As Per HPI - Integumentary Integumentary: As Per HPI, Skin Pain, Wounds - Neurological Neurological: absent: As Per HPI, Abnormal Gait, Abnormal Hearing, Abnormal Movements, Abnormal Speech, Behavioral Changes, Burning Sensations, Confusion, Convulsions, Disequilibrium, Dizziness, Numbness, Focal Weakness, Frequent Falls, Headaches, Lack of Coordination, Loss of Vision, Memory Loss, Paresthesias, Radicular Pain, Restless Legs, Sensory Deficit, Syncope, Tingling, Tremor, Vertigo, Weakness, Other Visual Disturbances, Other - Psychiatric Psychiatric: absent: As Per HPI, Abnormal Sleep Pattern, Anhedonia, Anxiety, Auditory Hallucinations, Behavioral Changes, Change in Appetite, Change in Libido, Confusion, Depression, Difficulty Concentrating, Hallucinations, Ho micidal Ideation, Hopelessness, Irritability, Memory Loss, Mood Swings, Panic Attacks, Paranoia, Suicidal Ideation, Visual Hallucinations, Tactile Hallucinations, Other Past Patient History - Infectious Disease Hx of Infectious Diseases: None - Tetanus Immunizations Tetanus Immunization: Unknown - Past Medical History & Family History Past Medical History?: Yes - Past Social History Smoking Status: Former Smoker Alcohol: None Drugs: Denies Home Situation {Lives}: Alone - CARDIAC Hx Congestive Heart Failure: Yes Hx Hypercholesterolemia: Yes Hx Hypertension: Yes Hx Peripheral Edema: Yes (no longer) - PULMONARY Hx Chronic Obstructive Pulmonary Disease (COPD): Yes Hx Pneumonia: Yes - NEUROLOGICAL Hx Dementia: Yes - HEENT Hx HEENT Problems: Yes Hx Cataracts: Yes (bilat iol) - RENAL Hx Chronic Kidney Disease: Yes Hx Dialysis: Yes - ENDOCRINE/METABOLIC Hx Endocrine Disorders: Yes Hx Diabetes Mellitus Type 1: Yes ((+) diabetic neuropathy) - HEMATOLOGICAL/ONCOLOGICAL Hx Blood Disorders: No - INTEGUMENTARY Hx Dermatological Problems: Yes (ble with discoloration) - MUSCULOSKELETAL/RHEUMATOLOGICAL Hx Arthritis: Yes - GASTROINTESTINAL Hx Gastrointestinal Disorders: Yes Hx Gastroesophageal Reflux: Yes - GENITOURINARY/GYNECOLOGICAL Hx Genitourinary Disorders: Yes Hx Prostate Problems: Yes Other/Comment: BPH - PSYCHIATRIC Hx Bipolar Disorder: Yes Hx Substance Use: No - SURGICAL HISTORY Hx Coronary Artery Bypass Graft: Yes (Aortive valve replacement9 Tissue valve ) in 07/2013 at [facility]) - ANESTHESIA Hx Anesthesia: Yes Hx Anesthesia Reactions: No Hx Malignant Hyperthermia: No Meds Allergies/Adverse Reactions: Allergies Allergy/AdvReac Type Severity Reaction Status Date / Time No Known Allergies Allergy Verified 08/04/18 11:09 - Medications Medications: Current Medications Acetaminophen (Tylenol 325mg Tab) 650 mg PO Q6 PRN PRN Reason: Fever >100.4 F Acetaminophen (Tylenol 325mg Tab) 650 mg PO Q6 PRN PRN Reason: Pain, moderate (4-7) Amlodipine Besylate (Norvasc) 10 mg PO DAILY [facility] Last Admin: 08/06/18 09:09 Dose: 10 mg Calcium Acetate (Phoslo) 1,334 mg PO BIDCC [facility] Last Admin: 08/06/18 07:44 Dose: 1,334 mg Carvedilol (Coreg) 6.25 mg PO DAILY [facility] Last Admin: 08/06/18 09:09 Dose: 6.25 mg Docusate Sodium (Colace) 100 mg PO BID [facility] Last Admin: 08/06/18 09:09 Dose: 100 mg Epoetin Chato (Procrit) 4,000 unit IV MWF [facility] Last Admin: 08/05/18 14:45 Dose: 4,000 unit Famotidine (Pepcid) 20 mg PO DAILY [facility] Last Admin: 08/06/18 09:09 Dose: 20 mg Glimepiride (Amaryl) 4 mg PO DAILY [facility] Last Admin: 08/06/18 09:09 Dose: 4 mg Heparin Sodium (Porcine) (Heparin) 5,000 units SC Q8 [facility] Last Admin: 08/06/18 13:31 Dose: 5,000 units Heparin Sodium (Porcine) (Heparin) 2,000 units IVP MWF [facility] Last Admin: 08/05/18 14:46 Dose: 2,000 units Piperacillin Sod/Tazobactam Sod (Zosyn 2.25 Gm Iv Premix) 2.25 gm in 50 mls @ 100 mls/hr IVPB Q12H [facility]; Protocol Last Admin: 08/06/18 09:58 Dose: 100 mls/hr Insulin Aspart (Novolog) 0 unit SC ACHS [facility]; Protocol Last Admin: 08/06/18 11:41 Dose: 4 units Insulin Glargine (Lantus) 30 unit SC HS [facility] Last Admin: 08/05/18 22:53 Dose: 30 units Lamotrigine (Lamictal) 25 mg PO BID [facility] Last Admin: 08/06/18 09:09 Dose: 25 mg Losartan Potassium (Cozaar) 100 mg PO DAILY [facility] Last Admin: 08/06/18 09:09 Dose: 100 mg Tamsulosin HCl (Flomax) 0.4 mg PO DAILY [facility] Last Admin: 08/06/18 09:09 Dose: 0.4 mg Vitamin B Complex/Vit C/Folic Acid (Nephro-Poly) 1 tab PO 0800 [facility] Last Admin: 08/06/18 07:44 Dose: 1 tab Physical Exam - Constitutional Appears: No Acute Distress, Chronically Ill - Head Exam Head Exam: ATRAUMATIC - ENT Exam ENT Exam: Mucous Membranes Dry - Neck Exam Neck exam: Negative for: Lymphadenopathy - Respiratory Exam Respiratory Exam: Decreased Breath Sounds - Cardiovascular Exam Cardiovascular Exam: REGULAR RHYTHM - GI/Abdominal Exam GI & Abdominal Exam: Diminished Bowel Sounds, Soft. absent: Tenderness - Rectal Exam Rectal Exam: Deferred - Exam Exam: NORMAL INSPECTION - Extremities Exam Extremities exam: Positive for: pedal edema, tenderness. Negative for: calf tenderness, pedal pulses present Additional comments: ulcer at tip of great toe with pus heel ulcers/ pressure sores noted - Back Exam Back exam: absent: CVA tenderness (L), CVA tenderness (R) - Neurological Exam Neurological exam: Alert, Altered, CN II-XII Intact - Psychiatric Exam Psychiatric exam: Depressed - Skin Skin Exam: Dry Results - Vital Signs Recent Vital Signs: Last Vital Signs Temp 99.1 F 08/06/18 15:00 Pulse 78 08/06/18 15:00 Resp 20 08/06/18 15:00 BP 142/67 08/06/18 15:00 Pulse Ox 95 08/06/18 15:00 - Labs Result Diagrams: 08/04/18 11:56 08/04/18 11:56 Labs: Laboratory Results - last 24 hr 08/05/18 08/05/18 08/06/18 16:36 21:19 02:36 POC Glucose (mg/dL) 157 H 346 H 320 H 08/06/18 08/06/18 08/06/18 07:29 11:30 16:10 POC Glucose (mg/dL) 271 H 281 H 269 H Assessment & Plan (1) Gangrene of toe of right foot Status: Acute (2) Infected ulcer of skin Status: Acute (3) Ischemic ulcer of heel with necrosis of muscle Status: Acute (4) Pneumonia Status: Acute (5) Right middle lobe pneumonia Status: Acute (6) ESRD on hemodialysis Status: Chronic (7) Uncontrolled diabetes mellitus Status: Chronic - Assessment and Plan (Free Text) Plan: 78 year old male was admitted to hospital for pneumonia as well as right great toe ulcer and bilateral heel wounds. Was here one month back and OM ruled out - now has necrotic toe with some pus Podiatry on board Consider vascular studies and MRI right foot May need OR / debridement and or amputation cont Vanco/zosyn pending cultures of sputum and foot
[2018-08-06] MEDS: (Lantus) Insulin Glargine, Recombinant SC SCH (21:36)
--- NOTE | 2018-08-06 23:47 | CP.PCM.PN ---
Subjective - Date & Time of Evaluation Date of Evaluation: 08/06/18 Time of Evaluation: 18:45 - Subjective Subjective: Patient with less cough, no chest pain, no SOB. Right toe ulcer and heel ulcers clean. On IV Zosyn. Objective - Vital Signs/Intake and Output Vital Signs (last 24 hours): Temp Pulse Resp BP Pulse Ox 98.8 F 73 20 149/62 97 08/06/18 23:36 08/06/18 23:36 08/06/18 23:36 08/06/18 23:36 08/06/18 23:36 Intake and Output: 08/06/18 08/07/18 18:59 06:59 Intake Total 500 Balance 500 - Medications Medications: Current Medications Acetaminophen (Tylenol 325mg Tab) 650 mg PO Q6 PRN PRN Reason: Fever >100.4 F Acetaminophen (Tylenol 325mg Tab) 650 mg PO Q6 PRN PRN Reason: Pain, moderate (4-7) Amlodipine Besylate (Norvasc) 10 mg PO DAILY [facility] Last Admin: 08/06/18 09:09 Dose: 10 mg Calcium Acetate (Phoslo) 1,334 mg PO BIDCC [facility] Last Admin: 08/06/18 17:36 Dose: 1,334 mg Carvedilol (Coreg) 6.25 mg PO DAILY [facility] Last Admin: 08/06/18 09:09 Dose: 6.25 mg Docusate Sodium (Colace) 100 mg PO BID [facility] Last Admin: 08/06/18 17:35 Dose: Not Given Epoetin Chato (Procrit) 4,000 unit IV MWF [facility] Last Admin: 08/05/18 14:45 Dose: 4,000 unit Famotidine (Pepcid) 20 mg PO DAILY [facility] Last Admin: 08/06/18 09:09 Dose: 20 mg Glimepiride (Amaryl) 4 mg PO DAILY [facility] Last Admin: 08/06/18 09:09 Dose: 4 mg Heparin Sodium (Porcine) (Heparin) 5,000 units SC Q8 [facility] Last Admin: 08/06/18 21:35 Dose: 5,000 units Heparin Sodium (Porcine) (Heparin) 2,000 units IVP MWF [facility] Last Admin: 08/05/18 14:46 Dose: 2,000 units Piperacillin Sod/Tazobactam Sod (Zosyn 2.25 Gm Iv Premix) 2.25 gm in 50 mls @ 100 mls/hr IVPB Q12H [facility]; Protocol Last Admin: 08/06/18 21:37 Dose: 100 mls/hr Vancomycin HCl 1,000 mg/ (Sodium Chloride) 250 mls @ 166.6 mls/hr IVPB MWF [facility]; Protocol Insulin Aspart (Novolog) 0 unit SC ACHS [facility]; Protocol Last Admin: 08/06/18 21:36 Dose: 3 units Insulin Glargine (Lantus) 30 unit SC HS [facility] Last Admin: 08/06/18 21:36 Dose: 30 units Lamotrigine (Lamictal) 25 mg PO BID [facility] Last Admin: 08/06/18 17:36 Dose: 25 mg Losartan Potassium (Cozaar) 100 mg PO DAILY [facility] Last Admin: 08/06/18 09:09 Dose: 100 mg Tamsulosin HCl (Flomax) 0.4 mg PO DAILY [facility] Last Admin: 08/06/18 09:09 Dose: 0.4 mg Vitamin B Complex/Vit C/Folic Acid (Nephro-Poly) 1 tab PO 0800 [facility] Last Admin: 08/06/18 07:44 Dose: 1 tab - Labs Labs: 08/04/18 11:56 08/04/18 11:56 PT 12.5 SECONDS (9.7-12.2) H 08/04/18 11:56 INR 1.1 08/04/18 11:56 APTT 28 SECONDS (21-34) 08/04/18 11:56 - Constitutional Appears: No Acute Distress, Chronically Ill - Head Exam Head Exam: NORMOCEPHALIC - Eye Exam Eye Exam: Normal appearance - ENT Exam ENT Exam: Normal Exam - Neck Exam Neck Exam: Normal Inspection - Respiratory Exam Additional comments: Few rhonchi at both bases. - Cardiovascular Exam Cardiovascular Exam: REGULAR RHYTHM, Murmur - GI/Abdominal Exam GI & Abdominal Exam: Soft, Normal Bowel Sounds - Rectal Exam Rectal Exam: Deferred - Extremities Exam Additional comments: Right great toe ulcer clean. Heel ulcers healing. - Back Exam Back Exam: NORMAL INSPECTION - Neurological Exam Neurological Exam: Alert, Awake, Oriented x3 - Psychiatric Exam Psychiatric exam: Anxious - Skin Skin Exam: Dry, Intact, Normal Color, Warm Assessment and Plan (1) Ischemic ulcer of heel with necrosis of muscle Assessment & Plan: On IV antibiotics. Status: Acute (2) Gangrene of toe of right foot Assessment & Plan: To continue IV antibiotics. Status: Acute (3) Right middle lobe pneumonia Assessment & Plan: On IV antibiotic. Status: Acute (4) Uncontrolled diabetes mellitus Status: Chronic (5) ESRD on hemodialysis Assessment & Plan: HD as per Nephrologists. Status: Chronic
[2018-08-07] MEDS: Multivitamin Vitamin B Complex (Nephro-Vite) Tab PO SCH (08:19)
[2018-08-07] MEDS: (Novolog) Insulin Aspart, Recombinant 100 u/ml 10 ml vial SC SCH ×4 (08:20→22:00)
[2018-08-07] MEDS: Piperacill/Tazo 2.25gm in Dex 2.25 GM/50 ML BAG IVPB SCH ×3 (09:08→21:05)
[2018-08-07] MEDS ORDERED: Pneumococcal 23-Valent Vaccine IM ONE (10:00)
[2018-08-07] MEDS: EPOETIN ALFA 4,000 UNIT/ML ML Dialysis IV SCH (11:42)
--- NOTE | 2018-08-07 14:53 | CP.PCM.PN ---
Subjective - Date & Time of Evaluation Date of Evaluation: 08/07/18 Time of Evaluation: 14:50 - Subjective Subjective: Podiatry Progress Note - Dr. Rodriguez Jenkins 78 y/o male seen at bedside today with Dr. Jenkins for bilateral heel deep tissue injuries and right great toe ulceration. pt Pt reports less coughing today and says he feels better. Denies pain to the lower extremities. Denies any new pedal complaints. Denies F/C/N/V. Objective - Vital Signs/Intake and Output Vital Signs (last 24 hours): Temp Pulse Resp BP Pulse Ox 98.1 F 78 16 140/53 L 98 08/07/18 09:10 08/07/18 09:10 08/07/18 09:00 08/07/18 11:25 08/07/18 09:10 Intake and Output: 08/07/18 08/07/18 06:59 18:59 Intake Total 700 Balance 700 - Medications Medications: Current Medications Acetaminophen (Tylenol 325mg Tab) 650 mg PO Q6 PRN PRN Reason: Fever >100.4 F Acetaminophen (Tylenol 325mg Tab) 650 mg PO Q6 PRN PRN Reason: Pain, moderate (4-7) Amlodipine Besylate (Norvasc) 10 mg PO DAILY [facility] Last Admin: 08/07/18 09:08 Dose: Not Given Calcium Acetate (Phoslo) 1,334 mg PO BIDCC [facility] Last Admin: 08/07/18 08:19 Dose: 1,334 mg Carvedilol (Coreg) 6.25 mg PO DAILY [facility] Last Admin: 08/07/18 09:07 Dose: Not Given Docusate Sodium (Colace) 100 mg PO BID [facility] Last Admin: 08/07/18 09:07 Dose: Not Given Epoetin Chato (Procrit) 4,000 unit IV MWF [facility] Last Admin: 08/07/18 11:42 Dose: 4,000 unit Famotidine (Pepcid) 20 mg PO DAILY [facility] Last Admin: 08/07/18 09:08 Dose: Not Given Glimepiride (Amaryl) 4 mg PO DAILY [facility] Last Admin: 08/07/18 09:07 Dose: Not Given Heparin Sodium (Porcine) (Heparin) 5,000 units SC Q8 [facility] Last Admin: 08/07/18 13:40 Dose: 5,000 units Heparin Sodium (Porcine) (Heparin) 2,000 units IVP MWF [facility] Last Admin: 08/05/18 14:46 Dose: 2,000 units Piperacillin Sod/Tazobactam Sod (Zosyn 2.25 Gm Iv Premix) 2.25 gm in 50 mls @ 100 mls/hr IVPB Q12H [facility]; Protocol Last Admin: 08/07/18 13:38 Dose: 100 mls/hr Vancomycin HCl 1,000 mg/ (Sodium Chloride) 250 mls @ 166.6 mls/hr IVPB MWF [facility]; Protocol Last Admin: 08/07/18 08:49 Dose: 166.6 mls/hr Insulin Aspart (Novolog) 0 unit SC ACHS [facility]; Protocol Last Admin: 08/07/18 11:09 Dose: Not Given Insulin Glargine (Lantus) 30 unit SC HS [facility] Last Admin: 08/06/18 21:36 Dose: 30 units Lamotrigine (Lamictal) 25 mg PO BID [facility] Last Admin: 08/07/18 09:08 Dose: Not Given Losartan Potassium (Cozaar) 100 mg PO DAILY [facility] Last Admin: 08/07/18 09:07 Dose: Not Given Tamsulosin HCl (Flomax) 0.4 mg PO DAILY [facility] Last Admin: 08/07/18 09:08 Dose: Not Given Vitamin B Complex/Vit C/Folic Acid (Nephro-Poly) 1 tab PO 0800 [facility] Last Admin: 08/07/18 08:19 Dose: 1 tab - Labs Labs: 08/04/18 11:56 08/04/18 11:56 PT 12.5 SECONDS (9.7-12.2) H 08/04/18 11:56 INR 1.1 08/04/18 11:56 APTT 28 SECONDS (21-34) 08/04/18 11:56 - Constitutional Appears: Well, Non-toxic, No Acute Distress - Extremities Exam Additional comments: Lower extremity focused exam: Vasc: DP/PT pulses palpable 2/4 B/L. Temperature gradient warm to cool B/L. CFT < 3 sec to all digits. No pedal edema noted Derm: Hyperkeratotic tissue noted to entirety of distal tip of right hallux with hyperpigmentation of digit and centrally located ulceration to plantar aspect of distal phalanx. Ulcer is circular, approx 0.4cm in diameter and 0.1cm in depth with no active drainage, no malodor, no purulence, no fluctuance, no alexus wound erythema. No evidence of necrosis or gangrenous changes at present. Deep tissue injuries noted to bilateral posteroplantar heels. No breaks in skin or soft tissue of heels noted B/L. Neuro: protective sensation grossly intact Ortho: no tenderness to palpation of right great toe ulceration or bilateral plantar heels at site of deep tissue injuries - Neurological Exam Neurological Exam: Alert, Awake, Oriented x3 - Psychiatric Exam Psychiatric exam: Normal Affect, Normal Mood Assessment and Plan - Assessment and Plan (Free Text) Assessment: 78 y/o male with 1) right great toe ulceration and 2) bilateral heel deep tissue injuries likely secondary to pressure Plan Pt seen and evaluated at bedside with attending Dr. Rodriguez Jenkins Foot x-rays show no acute osseous findings, no evidence of osteomyelitis Arterial duplex studies show no significant arterial insufficiency to lower extremities Podiatry will continue with local wound care Await results of wound cx for further IV abx - continue per ID recommendations Multipodus boots are to be worn at all times in bed Optifoam dressings applied to heels; dry sterile dressing applied to right great toe Podiatry will continue to follow
--- NOTE | 2018-08-07 15:00 | CP.PCM.PN ---
Subjective - Date & Time of Evaluation Date of Evaluation: 08/07/18 Time of Evaluation: 14:59 - Subjective Subjective: Nephrology Consultation Note: Assessment: Stable Rt foot cellulitis and Pneumonia Diabetic chronic Kidney Disease (E11.22) Hypertensive Chronic Kidney Disease (I12.0) End stage renal disease (N18.6) dependence on hemodialysis (Z99.2) (MWF) via AVF Anemia (D64.9), Hyperphosphatemia (E83.39), Secondary Hyperparathyroidism (E21.1), HTN (I12.0) Plan: Will plan for HD MWF schedule as ordered. Continue with Nephrovite 1 tab/day. PRBC as needed for anemia.on LESLI with dialysis as last Hb 9.6 Continue with phos binders, last phos level: 3.8 BP control with meds as ordered. Patient on RAAS ish Glycemic control, Dialysis consistent diet Further work up/management as per primary team Dose meds/antibiotics (if needed) for ESRD status. Avoid fleets enema/magnesium based laxatives. Thanks for allowing me to participate in care of your patient. Will follow patient with you. Please call if any Qs Dr Edwardo Valenzuela Office: [phone] Chief Complaint;Rt toe infection and cough HPI: Pt is a 78 year old male with PMHx of DM, HTN, HLD, ESRD on dialysis (MWF), CAD s/p CABG, AVR, BPH and Bipolar disorder presents to ED complaining of cough x 2 weeks and redness, swelling of the right big toe and admitted for cellulitis, pneumonia. Renal consult requested for ESRD management. last HD friday. otherwise feels usual health ROS: Cardiovascular: No chest pain. Pulmonary: No shortness of breath . has cough but better Gastrointestinal: denies abdominal pain No nausea. No vomiting. Genitourinary: No pain while urinating. Denies blood in urine. All other negative except as mentioned in HPI Physical Examination: General Appearance: Comfortable, in no acute respiratory distress, co-operative . Vitals reviewed and noted as below Head; Atraumatic, normocephalic ENT: no ulcers no thrush. Tongue is midline. Oropharynx: no rash or ulcers. EYES: Pupils are equal, round and reactive to light accommodation. Eye muscles and extraocular movement intact. Sclera is anicteric. Neck; supple no lymphadenopathy, no thyromegaly or bruit Lungs: Normal respiratory rate/effort. Breath sounds bilateral equal and clear Heart: Normal rate. s1s2 normal. No rub or gallop. Extremities: no edema. No varicose veins. Rt foot dressed Neurological: Patient is alert, awake and oriented to person, place and time. No focal deficit. Strength bilateral appropriate and equal Skin: Warm and dry. Normal turgor. No rash. Palpitation: Normal elasticity for age Abdomen: Abdomen is soft. Bowel sounds +. There is no abdominal tenderness, no guarding/rigidity or organomegaly Psych: normal insight and normal affect/mood MSK: no joint tenderness or swelling. Digits and nails normal, no deformity : kidney or bladder not palpable Access: AVF Labs/imaging reviewed. Past medical history, past surgical history, family history, social history, allergy reviewed and noted as below Family Hx: no hx of CKD. Non contributory Objective - Vital Signs/Intake and Output Vital Signs (last 24 hours): Temp Pulse Resp BP Pulse Ox 98.1 F 78 16 140/53 L 98 08/07/18 09:10 08/07/18 09:10 08/07/18 09:00 08/07/18 11:25 08/07/18 09:10 Intake and Output: 08/07/18 08/07/18 06:59 18:59 Intake Total 700 Balance 700 - Medications Medications: Current Medications Acetaminophen (Tylenol 325mg Tab) 650 mg PO Q6 PRN PRN Reason: Fever >100.4 F Acetaminophen (Tylenol 325mg Tab) 650 mg PO Q6 PRN PRN Reason: Pain, moderate (4-7) Amlodipine Besylate (Norvasc) 10 mg PO DAILY [facility] Last Admin: 08/07/18 09:08 Dose: Not Given Calcium Acetate (Phoslo) 1,334 mg PO BIDCC [facility] Last Admin: 08/07/18 08:19 Dose: 1,334 mg Carvedilol (Coreg) 6.25 mg PO DAILY [facility] Last Admin: 08/07/18 09:07 Dose: Not Given Docusate Sodium (Colace) 100 mg PO BID [facility] Last Admin: 08/07/18 09:07 Dose: Not Given Epoetin Chato (Procrit) 4,000 unit IV MWF [facility] Last Admin: 08/07/18 11:42 Dose: 4,000 unit Famotidine (Pepcid) 20 mg PO DAILY [facility] Last Admin: 08/07/18 09:08 Dose: Not Given Glimepiride (Amaryl) 4 mg PO DAILY [facility] Last Admin: 08/07/18 09:07 Dose: Not Given Heparin Sodium (Porcine) (Heparin) 5,000 units SC Q8 [facility] Last Admin: 08/07/18 13:40 Dose: 5,000 units Heparin Sodium (Porcine) (Heparin) 2,000 units IVP MWF [facility] Last Admin: 08/05/18 14:46 Dose: 2,000 units Piperacillin Sod/Tazobactam Sod (Zosyn 2.25 Gm Iv Premix) 2.25 gm in 50 mls @ 100 mls/hr IVPB Q12H [facility]; Protocol Last Admin: 08/07/18 13:38 Dose: 100 mls/hr Vancomycin HCl 1,000 mg/ (Sodium Chloride) 250 mls @ 166.6 mls/hr IVPB MWF [facility]; Protocol Last Admin: 08/07/18 08:49 Dose: 166.6 mls/hr Insulin Aspart (Novolog) 0 unit SC ACHS [facility]; Protocol Last Admin: 08/07/18 11:09 Dose: Not Given Insulin Glargine (Lantus) 30 unit SC HS [facility] Last Admin: 08/06/18 21:36 Dose: 30 units Lamotrigine (Lamictal) 25 mg PO BID [facility] Last Admin: 08/07/18 09:08 Dose: Not Given Losartan Potassium (Cozaar) 100 mg PO DAILY [facility] Last Admin: 08/07/18 09:07 Dose: Not Given Tamsulosin HCl (Flomax) 0.4 mg PO DAILY [facility] Last Admin: 08/07/18 09:08 Dose: Not Given Vitamin B Complex/Vit C/Folic Acid (Nephro-Poly) 1 tab PO 0800 [facility] Last Admin: 08/07/18 08:19 Dose: 1 tab - Labs Labs: 08/04/18 11:56 08/04/18 11:56 PT 12.5 SECONDS (9.7-12.2) H 08/04/18 11:56 INR 1.1 08/04/18 11:56 APTT 28 SECONDS (21-34) 08/04/18 11:56
--- NOTE | 2018-08-07 16:55 | CP.PCM.PN ---
Subjective - Date & Time of Evaluation Date of Evaluation: 08/07/18 Time of Evaluation: 08:00 - Subjective Subjective: events noted afebrile Objective - Vital Signs/Intake and Output Vital Signs (last 24 hours): Temp Pulse Resp BP Pulse Ox 98.6 F 78 20 138/64 96 08/07/18 15:00 08/07/18 15:00 08/07/18 15:00 08/07/18 15:00 08/07/18 15:00 Intake and Output: 08/07/18 08/07/18 06:59 18:59 Intake Total 700 Balance 700 - Medications Medications: Current Medications Acetaminophen (Tylenol 325mg Tab) 650 mg PO Q6 PRN PRN Reason: Fever >100.4 F Acetaminophen (Tylenol 325mg Tab) 650 mg PO Q6 PRN PRN Reason: Pain, moderate (4-7) Amlodipine Besylate (Norvasc) 10 mg PO DAILY [facility] Last Admin: 08/07/18 09:08 Dose: Not Given [facility] Admin: 08/07/18 08:19 Dose: 1,334 mg Carvedilol (Coreg) 6.25 mg PO DAILY [facility] Last Admin: 08/07/18 09:07 Dose: Not Given Docusate Sodium (Colace) 100 mg PO BID [facility] Last Admin: 08/07/18 09:07 Dose: Not Given Epoetin Chato (Procrit) 4,000 unit IV MWF [facility] Last Admin: 08/07/18 11:42 Dose: 4,000 unit Famotidine (Pepcid) 20 mg PO DAILY [facility] Last Admin: 08/07/18 09:08 Dose: Not Given Glimepiride (Amaryl) 4 mg PO DAILY [facility] Last Admin: 08/07/18 09:07 Dose: Not Given Heparin Sodium (Porcine) (Heparin) 5,000 units SC Q8 [facility] Last Admin: 08/07/18 13:40 Dose: 5,000 units Piperacillin Sod/Tazobactam Sod (Zosyn 2.25 Gm Iv Premix) 2.25 gm in 50 mls @ 100 mls/hr IVPB Q12H [facility]; Protocol Last Admin: 08/07/18 13:38 Dose: 100 mls/hr Vancomycin HCl 1,000 mg/ (Sodium Chloride) 250 mls @ 166.6 mls/hr IVPB MWF [facility]; Protocol Last Admin: 08/07/18 08:49 Dose: 166.6 mls/hr Insulin Aspart (Novolog) 0 unit SC ACHS [facility]; Protocol Last Admin: 08/07/18 11:09 Dose: Not Given Insulin Glargine (Lantus) 30 unit SC HS [facility] Last Admin: 08/06/18 21:36 Dose: 30 units Lamotrigine (Lamictal) 25 mg PO BID [facility] Last Admin: 08/07/18 09:08 Dose: Not Given Losartan Potassium (Cozaar) 100 mg PO DAILY [facility] Last Admin: 08/07/18 09:07 Dose: Not Given Tamsulosin HCl (Flomax) 0.4 mg PO DAILY [facility] Last Admin: 08/07/18 09:08 Dose: Not Given Vitamin B Complex/Vit C/Folic Acid (Nephro-Poly) 1 tab PO 0800 [facility] Last Admin: 08/07/18 08:19 Dose: 1 tab - Labs Labs: 08/04/18 11:56 08/04/18 11:56 PT 12.5 SECONDS (9.7-12.2) H 08/04/18 11:56 INR 1.1 08/04/18 11:56 APTT 28 SECONDS (21-34) 08/04/18 11:56 - Constitutional Appears: Non-toxic, Chronically Ill - Head Exam Head Exam: NORMOCEPHALIC - Eye Exam Eye Exam: PERRL - ENT Exam ENT Exam: Mucous Membranes Dry - Neck Exam Neck Exam: absent: Lymphadenopathy - Respiratory Exam Respiratory Exam: Decreased Breath Sounds - Cardiovascular Exam Cardiovascular Exam: REGULAR RHYTHM - GI/Abdominal Exam GI & Abdominal Exam: Distended, Soft - Rectal Exam Rectal Exam: Deferred - Exam Exam: NORMAL INSPECTION - Extremities Exam Extremities Exam: Pedal Edema - Back Exam Back Exam: absent: CVA tenderness (L), CVA tenderness (R) - Neurological Exam Neurological Exam: Alert, Awake, Oriented x3 Assessment and Plan (1) Gangrene of toe of right foot Status: Acute (2) Infected ulcer of skin Status: Acute (3) Ischemic ulcer of heel with necrosis of muscle Status: Acute (4) Pneumonia Status: Acute (5) Right middle lobe pneumonia Status: Acute (6) ESRD on hemodialysis Status: Chronic (7) Uncontrolled diabetes mellitus Status: Chronic - Assessment and Plan (Free Text) Assessment: 78 year old male was admitted to hospital for pneumonia as well as right gre at toe ulcer and bilateral heel wounds. Was here one month back and OM ruled out - now has necrotic toe with some pus Podiatry on board Consider vascular studies and MRI right foot May need OR / debridement and or amputation cont Vanco/zosyn pending cultures of sputum and foot
[2018-08-07] MEDS: (Lantus) Insulin Glargine, Recombinant SC SCH (21:06)
--- NOTE | 2018-08-07 22:48 | CP.PCM.PN ---
Subjective - Date & Time of Evaluation Date of Evaluation: 08/07/18 Time of Evaluation: 19:00 - Subjective Subjective: Patient has no SOB, with less productive cough. Ulcers of the right great toe and both heels clean. Blood glucose still elevated. Wll increase Lantus to 35 units s/c q HS. Objective - Vital Signs/Intake and Output Vital Signs (last 24 hours): Temp Pulse Resp BP Pulse Ox 98.6 F 78 20 138/64 96 08/07/18 15:00 08/07/18 15:00 08/07/18 15:00 08/07/18 15:00 08/07/18 15:00 - Medications Medications: Current Medications Acetaminophen (Tylenol 325mg Tab) 650 mg PO Q6 PRN PRN Reason: Fever >100.4 F Acetaminophen (Tylenol 325mg Tab) 650 mg PO Q6 PRN PRN Reason: Pain, moderate (4-7) Amlodipine Besylate (Norvasc) 10 mg PO DAILY [facility] Last Admin: 08/07/18 09:08 Dose: Not Given Calcium Acetate (Phoslo) 1,334 mg PO BIDCC [facility] Last Admin: 08/07/18 17:05 Dose: 1,334 mg Carvedilol (Coreg) 6.25 mg PO DAILY [facility] Last Admin: 08/07/18 09:07 Dose: Not Given Docusate Sodium (Colace) 100 mg PO BID [facility] Last Admin: 08/07/18 17:05 Dose: 100 mg Epoetin Chato (Procrit) 4,000 unit IV MWF [facility] Last Admin: 08/07/18 11:42 Dose: 4,000 unit Famotidine (Pepcid) 20 mg PO DAILY [facility] Last Admin: 08/07/18 09:08 Dose: Not Given Glimepiride (Amaryl) 4 mg PO DAILY [facility] Last Admin: 08/07/18 09:07 Dose: Not Given Heparin Sodium (Porcine) (Heparin) 5,000 units SC Q8 [facility] Last Admin: 08/07/18 21:07 Dose: 5,000 units Piperacillin Sod/Tazobactam Sod (Zosyn 2.25 Gm Iv Premix) 2.25 gm in 50 mls @ 100 mls/hr IVPB Q12H [facility]; Protocol Last Admin: 08/07/18 21:05 Dose: 100 mls/hr Vancomycin HCl 1,000 mg/ (Sodium Chloride) 250 mls @ 166.6 mls/hr IVPB MWF [facility]; Protocol Last Admin: 08/07/18 08:49 Dose: 166.6 mls/hr Insulin Aspart (Novolog) 0 unit SC ACHS [facility]; Protocol Last Admin: 08/07/18 22:00 Dose: Not Given Insulin Glargine (Lantus) 35 unit SC HS [facility] Last Admin: 08/07/18 21:06 Dose: 35 u Lamotrigine (Lamictal) 25 mg PO BID [facility] Last Admin: 08/07/18 17:05 Dose: 25 mg Losartan Potassium (Cozaar) 100 mg PO DAILY [facility] Last Admin: 08/07/18 09:07 Dose: Not Given Tamsulosin HCl (Flomax) 0.4 mg PO DAILY [facility] Last Admin: 08/07/18 09:08 Dose: Not Given Vitamin B Complex/Vit C/Folic Acid (Nephro-Poly) 1 tab PO 0800 [facility] Last Admin: 08/07/18 08:19 Dose: 1 tab - Labs Labs: 08/04/18 11:56 08/04/18 11:56 PT 12.5 SECONDS (9.7-12.2) H 08/04/18 11:56 INR 1.1 08/04/18 11:56 APTT 28 SECONDS (21-34) 08/04/18 11:56 - Constitutional Appears: No Acute Distress, Chronically Ill - Head Exam Head Exam: NORMOCEPHALIC - Eye Exam Eye Exam: Normal appearance - ENT Exam ENT Exam: Normal Exam - Neck Exam Neck Exam: Normal Inspection - Respiratory Exam Respiratory Exam: Rhonchi - Cardiovascular Exam Cardiovascular Exam: REGULAR RHYTHM, Murmur - GI/Abdominal Exam GI & Abdominal Exam: Soft, Normal Bowel Sounds - Rectal Exam Rectal Exam: Deferred - Extremities Exam Additional comments: Right great toe ulcer clean. Ulcers of both heels clean. - Back Exam Back Exam: NORMAL INSPECTION - Neurological Exam Neurological Exam: Alert, Awake, Oriented x3 - Psychiatric Exam Psychiatric exam: Anxious Assessment and Plan (1) Ischemic ulcer of heel with necrosis of muscle Status: Acute (2) Gangrene of toe of right foot Status: Acute (3) Right middle lobe pneumonia Assessment & Plan: To continue IV antibiotics. Status: Acute (4) Uncontrolled diabetes mellitus Status: Chronic (5) ESRD on hemodialysis Status: Chronic
[2018-08-08] MEDS: (Novolog) Insulin Aspart, Recombinant 100 u/ml 10 ml vial SC SCH ×4 (07:33→21:32)
[2018-08-08] MEDS: Multivitamin Vitamin B Complex (Nephro-Vite) Tab PO SCH (07:37)
[2018-08-08] MEDS: Piperacill/Tazo 2.25gm in Dex 2.25 GM/50 ML BAG IVPB SCH ×2 (10:22→21:22)
--- NOTE | 2018-08-08 10:27 | CP.PCM.PN ---
Subjective - Date & Time of Evaluation Date of Evaluation: 08/08/18 Time of Evaluation: 10:27 - Subjective Subjective: Podiatry Progress Note: Dr. Jenkins 78 year old male patient seen and evaluated at bedside today for bilateral heel deep tissue injuries and right great toe ulceration. Patient resting comfortably in bed and in NAD. He denies any current pain to b/l lower extremities. Denies any new pedal complaints. Currently wearing multipodus boots while in bed. Denies N/V/F/CP/Chills Objective - Vital Signs/Intake and Output Vital Signs (last 24 hours): Temp Pulse Resp BP Pulse Ox 98.3 F 80 20 145/64 97 08/08/18 07:40 08/08/18 07:40 08/08/18 07:40 08/08/18 07:40 08/08/18 07:40 Intake and Output: 08/08/18 08/08/18 06:59 18:59 Intake Total 600 Balance 600 - Medications Medications: Current Medications Acetaminophen (Tylenol 325mg Tab) 650 mg PO Q6 PRN PRN Reason: Fever >100.4 F Acetaminophen (Tylenol 325mg Tab) 650 mg PO Q6 PRN PRN Reason: Pain, moderate (4-7) Amlodipine Besylate (Norvasc) 10 mg PO DAILY [facility] Last Admin: 08/08/18 09:37 Dose: 10 mg Calcium Acetate (Phoslo) 1,334 mg PO BIDCC [facility] Last Admin: 08/08/18 07:37 Dose: 1,334 mg Carvedilol (Coreg) 6.25 mg PO DAILY [facility] Last Admin: 08/08/18 09:37 Dose: 6.25 mg Docusate Sodium (Colace) 100 mg PO BID [facility] Last Admin: 08/08/18 09:37 Dose: 100 mg Epoetin Chato (Procrit) 4,000 unit IV MWF [facility] Last Admin: 08/07/18 11:42 Dose: 4,000 unit Famotidine (Pepcid) 20 mg PO DAILY [facility] Last Admin: 08/08/18 09:37 Dose: 20 mg Glimepiride (Amaryl) 4 mg PO DAILY [facility] Last Admin: 08/08/18 09:37 Dose: 4 mg Heparin Sodium (Porcine) (Heparin) 5,000 units SC Q8 [facility] Last Admin: 08/08/18 05:25 Dose: 5,000 units Piperacillin Sod/Tazobactam Sod (Zosyn 2.25 Gm Iv Premix) 2.25 gm in 50 mls @ 100 mls/hr IVPB Q12H [facility]; Protocol Last Admin: 08/08/18 10:22 Dose: 100 mls/hr Vancomycin HCl 1,000 mg/ (Sodium Chloride) 250 mls @ 166.6 mls/hr IVPB MWF [facility]; Protocol Last Admin: 08/07/18 08:49 Dose: 166.6 mls/hr Insulin Aspart (Novolog) 0 unit SC ACHS [facility]; Protocol Last Admin: 08/08/18 07:33 Dose: Not Given Insulin Glargine (Lantus) 35 unit SC HS [facility] Last Admin: 08/07/18 21:06 Dose: 35 u Lamotrigine (Lamictal) 25 mg PO BID [facility] Last Admin: 08/08/18 09:37 Dose: 25 mg Losartan Potassium (Cozaar) 100 mg PO DAILY [facility] Last Admin: 08/08/18 09:37 Dose: 100 mg Tamsulosin HCl (Flomax) 0.4 mg PO DAILY [facility] Last Admin: 08/08/18 09:37 Dose: 0.4 mg Vitamin B Complex/Vit C/Folic Acid (Nephro-Poly) 1 tab PO 0800 [facility] Last Admin: 08/08/18 07:37 Dose: 1 tab - Labs Labs: 08/04/18 11:56 08/04/18 11:56 PT 12.5 SECONDS (9.7-12.2) H 08/04/18 11:56 INR 1.1 08/04/18 11:56 APTT 28 SECONDS (21-34) 08/04/18 11:56 - Constitutional Appears: Non-toxic, No Acute Distress - Head Exam Head Exam: ATRAUMATIC, NORMOCEPHALIC - Extremities Exam Additional comments: Lower extremity focused exam: Vasc: DP/PT pulses palpable 2/4 B/L. Temperature gradient warm to cool B/L. CFT < 3 sec to all digits. No pedal edema noted Derm: Hyperkeratotic tissue noted to entirety of distal tip of right hallux with hyperpigmentation of digit and centrally located ulceration to plantar aspect of distal phalanx. Ulcer is circular, approx 0.4cm in diameter and 0.1cm in depth with no active drainage, no malodor, no purulence, no fluctuance, no alexus wound erythema. No evidence of necrosis or gangrenous changes at present. Deep tissue injuries noted to bilateral posteroplantar heels. No breaks in skin or soft tissue of heels noted B/L. Neuro: protective sensation grossly intact Ortho: no tenderness to palpation of right great toe ulceration or bilateral plantar heels at site of deep tissue injuries - Neurological Exam Neurological Exam: Alert, Awake, Oriented x3 - Psychiatric Exam Psychiatric exam: Normal Affect, Normal Mood Assessment and Plan - Assessment and Plan (Free Text) Assessment: 78 year old male patient with right great toe ulceration and bilateral heel deep tissue injuries likely secondary to pressure Plan: Patient seen and evaluated at bedside Discussed patient in detail with attending Dr. Rodriguez Jenkins Foot x-rays show no acute osseous findings, no evidence of osteomyelitis Arterial duplex studies show no significant arterial insufficiency to lower extremities Podiatry will continue with local wound care; optifoam to b/l heels and to hallux Wound culture; staph aureus, cornybacterium Continue IV abx per ID recommendations Multipodus boots are to be worn at all times in bed Will continue to follow
--- NOTE | 2018-08-08 17:59 | CP.PCM.PN ---
Subjective - Date & Time of Evaluation Date of Evaluation: 08/08/18 Time of Evaluation: 17:57 - Subjective Subjective: Patient has no complaint. Much less productive cough. Afebrile. Right great toe ulcer clean. Wound culture reveals Staph Aureus and Corynebacteria. On IV Zosyn. Objective - Vital Signs/Intake and Output Vital Signs (last 24 hours): Temp Pulse Resp BP Pulse Ox 98.0 F 69 20 128/53 L 95 08/08/18 16:58 08/08/18 16:58 08/08/18 16:58 08/08/18 16:58 08/08/18 16:58 Intake and Output: 08/08/18 08/08/18 06:59 18:59 Intake Total 600 Balance 600 - Medications Medications: Current Medications Acetaminophen (Tylenol 325mg Tab) 650 mg PO Q6 PRN PRN Reason: Fever >100.4 F Acetaminophen (Tylenol 325mg Tab) 650 mg PO Q6 PRN PRN Reason: Pain, moderate (4-7) Amlodipine Besylate (Norvasc) 10 mg PO DAILY [facility] Last Admin: 08/08/18 09:37 Dose: 10 mg Calcium Acetate (Phoslo) 1,334 mg PO BIDCC [facility] Last Admin: 08/08/18 17:16 Dose: 1,334 mg Carvedilol (Coreg) 6.25 mg PO DAILY [facility] Last Admin: 08/08/18 09:37 Dose: 6.25 mg Docusate Sodium (Colace) 100 mg PO BID [facility] Last Admin: 08/08/18 17:17 Dose: 100 mg Epoetin Chato (Procrit) 4,000 unit IV MWF [facility] Last Admin: 08/07/18 11:42 Dose: 4,000 unit Famotidine (Pepcid) 20 mg PO DAILY [facility] Last Admin: 08/08/18 09:37 Dose: 20 mg Glimepiride (Amaryl) 4 mg PO DAILY [facility] Last Admin: 08/08/18 09:37 Dose: 4 mg Heparin Sodium (Porcine) (Heparin) 5,000 units SC Q8 [facility] Last Admin: 08/08/18 13:31 Dose: 5,000 units Piperacillin Sod/Tazobactam Sod (Zosyn 2.25 Gm Iv Premix) 2.25 gm in 50 mls @ 100 mls/hr IVPB Q12H [facility]; Protocol Last Admin: 08/08/18 10:22 Dose: 100 mls/hr Vancomycin HCl 1,000 mg/ (Sodium Chloride) 250 mls @ 166.6 mls/hr IVPB MWF [facility]; Protocol Last Admin: 08/07/18 08:49 Dose: 166.6 mls/hr Insulin Aspart (Novolog) 0 unit SC ACHS [facility]; Protocol Last Admin: 08/08/18 17:16 Dose: 6 units Insulin Glargine (Lantus) 35 unit SC HS [facility] Last Admin: 08/07/18 21:06 Dose: 35 u Lamotrigine (Lamictal) 25 mg PO BID [facility] Last Admin: 08/08/18 17:17 Dose: 25 mg Losartan Potassium (Cozaar) 100 mg PO DAILY [facility] Last Admin: 08/08/18 09:37 Dose: 100 mg Tamsulosin HCl (Flomax) 0.4 mg PO DAILY [facility] Last Admin: 08/08/18 09:37 Dose: 0.4 mg Vitamin B Complex/Vit C/Folic Acid (Nephro-Poly) 1 tab PO 0800 [facility] Last Admin: 08/08/18 07:37 Dose: 1 tab - Labs Labs: 08/04/18 11:56 08/04/18 11:56 PT 12.5 SECONDS (9.7-12.2) H 08/04/18 11:56 INR 1.1 08/04/18 11:56 APTT 28 SECONDS (21-34) 08/04/18 11:56 - Constitutional Appears: No Acute Distress, Chronically Ill - Head Exam Head Exam: NORMOCEPHALIC - Eye Exam Eye Exam: Normal appearance - ENT Exam ENT Exam: Normal Exam - Neck Exam Neck Exam: Normal Inspection - Respiratory Exam Additional comments: Few rhonchi heard at both bases. - Cardiovascular Exam Cardiovascular Exam: REGULAR RHYTHM, Murmur - GI/Abdominal Exam GI & Abdominal Exam: Soft, Normal Bowel Sounds - Rectal Exam Rectal Exam: Deferred - Extremities Exam Additional comments: Right great toe ulcer clean. - Back Exam Back Exam: NORMAL INSPECTION - Neurological Exam Neurological Exam: Alert, Awake, Oriented x3 - Psychiatric Exam Psychiatric exam: Anxious Assessment and Plan (1) Ischemic ulcer of heel with necrosis of muscle Status: Acute (2) Gangrene of toe of right foot Assessment & Plan: On IV Zosyn. Status: Acute (3) Right middle lobe pneumonia Assessment & Plan: To continue IV Zosyn Status: Acute (4) Uncontrolled diabetes mellitus Status: Chronic (5) ESRD on hemodialysis Status: Chronic
[2018-08-08] MEDS: (Lantus) Insulin Glargine, Recombinant SC SCH (21:24)
[2018-08-09] MEDS: Multivitamin Vitamin B Complex (Nephro-Vite) Tab PO SCH (07:39)
[2018-08-09] MEDS: (Novolog) Insulin Aspart, Recombinant 100 u/ml 10 ml vial SC SCH ×4 (07:39→21:09)
[2018-08-09 09:37] LABS: BASO # 0.1 K/uL (0.0-0.2); BASO % 0.9 % (0.0-2.0); EOS # 0.4 K/uL (0.0-0.7); EOS % 4.7 % (0.0-4.0); HEMOGLOBIN 9.7 g/dL (12.0-18.0); LYMPH # 1.3 K/uL (1.0-4.3); LYMPH % 17.5 % (20.0-40.0); MEAN CELL VOLUME 86.8 fL (80.0-94.0); MEAN CORPUSCULAR HEMOGLOBIN 29.9 pg (27.0-31.0); MEAN CORPUSCULAR HGB CONC 34.4 g/dL (33.0-37.0); MEAN PLATELET VOLUME 8.9 fL (7.2-11.7); MONO # 0.7 K/uL (0.0-0.8); MONO % 8.8 % (0.0-10.0); NEUT # 5.2 K/uL (1.8-7.0); NEUT % 68.1 % (50.0-75.0); RBC 3.26 Mil/uL (4.40-5.90); WHITE BLOOD COUNT 7.6 K/uL (4.8-10.8)
[2018-08-09] MEDS: Piperacill/Tazo 2.25gm in Dex 2.25 GM/50 ML BAG IVPB SCH ×2 (09:37→21:06)
[2018-08-09 10:14] LABS: ALBUMIN 3.6 g/dL (3.5-5.0)
--- NOTE | 2018-08-09 14:55 | CP.PCM.PN ---
Subjective - Date & Time of Evaluation Date of Evaluation: 08/09/18 Time of Evaluation: 14:52 - Subjective Subjective: Podiatry Progress Note: Dr. Jenkins 78 year old male patient seen and evaluated at bedside for bilateral heel deep tissue injuries and right great toe ulceration. Patient resting comfortably in bed and in NAD. Denies any acute events overnight. Denies N/V/F/CP/Chills Objective - Vital Signs/Intake and Output Vital Signs (last 24 hours): Temp Pulse Resp BP Pulse Ox 97.3 F L 76 20 159/69 H 95 08/09/18 08:40 08/09/18 08:40 08/09/18 08:40 08/09/18 08:40 08/09/18 08:40 Intake and Output: 08/09/18 08/09/18 06:59 18:59 Intake Total 300 Output Total 2 Balance 298 - Medications Medications: Current Medications Acetaminophen (Tylenol 325mg Tab) 650 mg PO Q6 PRN PRN Reason: Fever >100.4 F Acetaminophen (Tylenol 325mg Tab) 650 mg PO Q6 PRN PRN Reason: Pain, moderate (4-7) Amlodipine Besylate (Norvasc) 10 mg PO DAILY [facility] Last Admin: 08/09/18 09:37 Dose: 10 mg Calcium Acetate (Phoslo) 1,334 mg PO BIDCC [facility] Last Admin: 08/09/18 07:39 Dose: 1,334 mg Carvedilol (Coreg) 6.25 mg PO DAILY [facility] Last Admin: 08/09/18 09:37 Dose: 6.25 mg Docusate Sodium (Colace) 100 mg PO BID [facility] Last Admin: 08/09/18 09:37 Dose: 100 mg Epoetin Chato (Procrit) 4,000 unit IV MWF [facility] Last Admin: 08/07/18 11:42 Dose: 4,000 unit Famotidine (Pepcid) 20 mg PO DAILY [facility] Last Admin: 08/09/18 09:37 Dose: 20 mg Glimepiride (Amaryl) 4 mg PO DAILY [facility] Last Admin: 08/09/18 09:37 Dose: 4 mg Heparin Sodium (Porcine) (Heparin) 5,000 units SC Q8 [facility] Last Admin: 08/09/18 13:31 Dose: 5,000 units Piperacillin Sod/Tazobactam Sod (Zosyn 2.25 Gm Iv Premix) 2.25 gm in 50 mls @ 100 mls/hr IVPB Q12H [facility]; Protocol Last Admin: 08/09/18 09:37 Dose: 100 mls/hr Vancomycin HCl 1,000 mg/ (Sodium Chloride) 250 mls @ 166.6 mls/hr IVPB MWF [facility]; Protocol Last Admin: 08/07/18 08:49 Dose: 166.6 mls/hr Insulin Aspart (Novolog) 0 unit SC ACHS [facility]; Protocol Last Admin: 08/09/18 12:32 Dose: 2 units Insulin Glargine (Lantus) 35 unit SC HS [facility] Last Admin: 08/08/18 21:24 Dose: 35 u Lamotrigine (Lamictal) 25 mg PO BID [facility] Last Admin: 08/09/18 09:37 Dose: 25 mg Losartan Potassium (Cozaar) 100 mg PO DAILY [facility] Last Admin: 08/09/18 09:37 Dose: 100 mg Tamsulosin HCl (Flomax) 0.4 mg PO DAILY [facility] Last Admin: 08/09/18 09:37 Dose: 0.4 mg Vitamin B Complex/Vit C/Folic Acid (Nephro-Poly) 1 tab PO 0800 [facility] Last Admin: 08/09/18 07:39 Dose: 1 tab - Labs Labs: 08/09/18 09:31 08/09/18 09:31 PT 12.5 SECONDS (9.7-12.2) H 08/04/18 11:56 INR 1.1 08/04/18 11:56 APTT 28 SECONDS (21-34) 08/04/18 11:56 - Constitutional Appears: Well, Non-toxic, No Acute Distress - Head Exam Head Exam: ATRAUMATIC, NORMOCEPHALIC - Extremities Exam Additional comments: Lower extremity focused exam: Vasc: DP/PT pulses palpable 2/4 B/L. Temperature gradient warm to cool B/L. CFT < 3 sec to all digits. No pedal edema noted Derm: Hyperkeratotic tissue noted to entirety of distal tip of right hallux with hyperpigmentation of digit and centrally located ulceration to plantar aspect of distal phalanx. Ulcer is circular, approx 0.4cm in diameter and 0.1cm in depth with no active drainage, no malodor, no purulence, no fluctuance, no alexus wound erythema. No evidence of necrosis or gangrenous changes at present. Deep tissue injuries noted to bilateral posteroplantar heels. No breaks in skin or soft tissue of heels noted B/L. Neuro: protective sensation grossly intact Ortho: no tenderness to palpation of right great toe ulceration or bilateral plantar heels at site of deep tissue injuries - Neurological Exam Neurological Exam: Alert, Awake - Psychiatric Exam Psychiatric exam: Normal Affect, Normal Mood Assessment and Plan - Assessment and Plan (Free Text) Assessment: 78 year old male patient with right great toe ulceration and bilateral heel deep tissue injuries likely secondary to pressure Plan: Patient seen and evaluated at bedside with attending Dr. Rodriguez Jenkins Afebrile, WBC 7.6 Foot x-rays show no acute osseous findings, no evidence of osteomyelitis Arterial duplex studies show no significant arterial insufficiency to lower extremities Podiatry will continue with local wound care; optifoam to b/l heels and to hallux Wound culture; staph aureus, cornybacterium Continue IV abx per ID recommendations; Zosyn Multipodus boots are to be worn at all times in bed
--- NOTE | 2018-08-09 15:49 | CP.PCM.PN ---
Subjective - Date & Time of Evaluation Date of Evaluation: 08/09/18 Time of Evaluation: 09:00 - Subjective Subjective: 78 year old male patient seen and evaluated at bedside for bilateral heel deep tissue injuries and right great toe ulceration. Patient resting comfortably in bed and in NAD. Denies any acute events overnight. Objective - Vital Signs/Intake and Output Vital Signs (last 24 hours): Temp Pulse Resp BP Pulse Ox 97.3 F L 76 20 159/69 H 95 08/09/18 08:40 08/09/18 08:40 08/09/18 08:40 08/09/18 08:40 08/09/18 08:40 Intake and Output: 08/09/18 08/09/18 06:59 18:59 Intake Total 300 Output Total 2 Balance 298 - Medications Medications: Current Medications Acetaminophen (Tylenol 325mg Tab) 650 mg PO Q6 PRN PRN Reason: Fever >100.4 F Acetaminophen (Tylenol 325mg Tab) 650 mg PO Q6 PRN PRN Reason: Pain, moderate (4-7) Amlodipine Besylate (Norvasc) 10 mg PO DAILY [facility] Last Admin: 08/09/18 09:37 Dose: 10 mg Calcium Acetate (Phoslo) 1,334 mg PO BIDCC [facility] Last Admin: 08/09/18 07:39 Dose: 1,334 mg Carvedilol (Coreg) 6.25 mg PO DAILY [facility] Last Admin: 08/09/18 09:37 Dose: 6.25 mg Docusate Sodium (Colace) 100 mg PO BID [facility] Last Admin: 08/09/18 09:37 Dose: 100 mg Epoetin Chato (Procrit) 4,000 unit IV MWF [facility] Last Admin: 08/07/18 11:42 Dose: 4,000 unit Famotidine (Pepcid) 20 mg PO DAILY [facility] Last Admin: 08/09/18 09:37 Dose: 20 mg Glimepiride (Amaryl) 4 mg PO DAILY [facility] Last Admin: 08/09/18 09:37 Dose: 4 mg Heparin Sodium (Porcine) (Heparin) 5,000 units SC Q8 [facility] Last Admin: 08/09/18 13:31 Dose: 5,000 units Piperacillin Sod/Tazobactam Sod (Zosyn 2.25 Gm Iv Premix) 2.25 gm in 50 mls @ 100 mls/hr IVPB Q12H [facility]; Protocol Last Admin: 08/09/18 09:37 Dose: 100 mls/hr Vancomycin HCl 1,000 mg/ (Sodium Chloride) 250 mls @ 166.6 mls/hr IVPB MWF [facility]; Protocol Last Admin: 08/07/18 08:49 Dose: 166.6 mls/hr Insulin Aspart (Novolog) 0 unit SC ACHS [facility]; Protocol Last Admin: 08/09/18 12:32 Dose: 2 units Insulin Glargine (Lantus) 35 unit SC HS [facility] Last Admin: 08/08/18 21:24 Dose: 35 u Lamotrigine (Lamictal) 25 mg PO BID [facility] Last Admin: 08/09/18 09:37 Dose: 25 mg Losartan Potassium (Cozaar) 100 mg PO DAILY [facility] Last Admin: 08/09/18 09:37 Dose: 100 mg Tamsulosin HCl (Flomax) 0.4 mg PO DAILY [facility] Last Admin: 08/09/18 09:37 Dose: 0.4 mg Vitamin B Complex/Vit C/Folic Acid (Nephro-Poly) 1 tab PO 0800 [facility] Last Admin: 08/09/18 07:39 Dose: 1 tab - Labs Labs: 08/09/18 09:31 08/09/18 09:31 PT 12.5 SECONDS (9.7-12.2) H 08/04/18 11:56 INR 1.1 08/04/18 11:56 APTT 28 SECONDS (21-34) 08/04/18 11:56 - Constitutional Appears: Non-toxic, Chronically Ill - Head Exam Head Exam: NORMOCEPHALIC - Eye Exam Eye Exam: absent: Scleral icterus - ENT Exam ENT Exam: Mucous Membranes Dry - Neck Exam Neck Exam: absent: Lymphadenopathy - Respiratory Exam Respiratory Exam: Decreased Breath Sounds - Cardiovascular Exam Cardiovascular Exam: REGULAR RHYTHM - GI/Abdominal Exam GI & Abdominal Exam: Distended, Soft - Rectal Exam Rectal Exam: Deferred - Exam Exam: NORMAL INSPECTION - Extremities Exam Extremities Exam: Pedal Edema Additional comments: great toe necrotic R - Back Exam Back Exam: absent: CVA tenderness (L), CVA tenderness (R) - Neurological Exam Neurological Exam: Alert, Awake, CN II-XII Intact Assessment and Plan (1) Gangrene of toe of right foot Status: Acute (2) Infected ulcer of skin Status: Acute (3) Ischemic ulcer of heel with necrosis of muscle Status: Acute (4) Pneumonia Status: Acute (5) Right middle lobe pneumonia Status: Acute (6) ESRD on hemodialysis Status: Chronic (7) Uncontrolled diabetes mellitus Status: Chronic (8) MRSA (methicillin resistant staph aureus) culture positive Status: Acute - Assessment and Plan (Free Text) Assessment: consider MRI may need debridement / amp
--- NOTE | 2018-08-09 16:50 | CP.PCM.PN ---
Subjective - Date & Time of Evaluation Date of Evaluation: 08/09/18 Time of Evaluation: 16:49 - Subjective Subjective: Nephrology Consultation Note: Assessment: Stable Rt foot cellulitis and Pneumonia Diabetic chronic Kidney Disease (E11.22) Hypertensive Chronic Kidney Disease (I12.0) End stage renal disease (N18.6) dependence on hemodialysis (Z99.2) (MWF) via AVF Anemia (D64.9), Hyperphosphatemia (E83.39), Secondary Hyperparathyroidism (E21.1), HTN (I12.0) Plan: Will plan for HD MWF schedule as ordered. Continue with Nephrovite 1 tab/day. PRBC as needed for anemia.on LESLI with dialysis as needed lytes reviewed Continue with phos binders BP control with meds as ordered Physical Examination: General Appearance: Comfortable, in no acute respiratory distress, co-operative . Vitals reviewed and noted as below Head; Atraumatic, normocephalic ENT: no ulcers EYES:Eye muscles and extraocular movement intact. Sclera is anicteric. Neck; supple no lymphadenopathy, no thyromegaly or bruit Lungs: Normal respiratory rate/effort. Breath sounds bilateral equal and clear Heart: Normal rate. s1s2 normal. No rub or gallop. Extremities: no edema. Rt foot dressed Neurological: Patient is alert, awake and oriented to person, place and time. No focal deficit. Strength bilateral appropriate and equal Skin: Warm and dry. Normal turgor. Abdomen: Abdomen is soft. Bowel sounds +. There is no abdominal tenderness, no guarding/rigidity or organomegaly Psych: normal insight and normal affect/mood MSK: no joint tenderness Access: AVF Objective - Vital Signs/Intake and Output Vital Signs (last 24 hours): Temp Pulse Resp BP Pulse Ox 97.3 F L 76 20 159/69 H 95 08/09/18 08:40 08/09/18 08:40 08/09/18 08:40 08/09/18 08:40 08/09/18 08:40 Intake and Output: 08/09/18 08/09/18 06:59 18:59 Intake Total 300 Output Total 2 Balance 298 - Medications Medications: Current Medications Acetaminophen (Tylenol 325mg Tab) 650 mg PO Q6 PRN PRN Reason: Fever >100.4 F Acetaminophen (Tylenol 325mg Tab) 650 mg PO Q6 PRN PRN Reason: Pain, moderate (4-7) Amlodipine Besylate (Norvasc) 10 mg PO DAILY [facility] Last Admin: 08/09/18 09:37 Dose: 10 [facility] Last Admin: 08/09/18 07:39 Dose: 1,334 mg Carvedilol (Coreg) 6.25 mg PO DAILY [facility] Last Admin: 08/09/18 09:37 Dose: 6.25 mg Docusate Sodium (Colace) 100 mg PO BID [facility] Last Admin: 08/09/18 09:37 Dose: 100 mg Epoetin Chato (Procrit) 4,000 unit IV [facility] Last Admin: 08/07/18 11:42 Dose: 4,000 unit Famotidine (Pepcid) 20 mg PO DAILY [facility] Last Admin: 08/09/18 09:37 Dose: 20 mg Glimepiride (Amaryl) 4 mg PO DAILY [facility] Last Admin: 08/09/18 09:37 Dose: 4 mg Heparin Sodium (Porcine) (Heparin) 5,000 units SC Q8 [facility] Last Admin: 08/09/18 13:31 Dose: 5,000 units Piperacillin Sod/Tazobactam Sod (Zosyn 2.25 Gm Iv Premix) 2.25 gm in 50 mls @ 100 mls/hr IVPB Q12H [facility]; Protocol Last Admin: 08/09/18 09:37 Dose: 100 mls/hr Vancomycin HCl 1,000 mg/ (Sodium Chloride) 250 mls @ 166.6 mls/hr IVPB [facility]; Protocol Last Admin: 08/07/18 08:49 Dose: 166.6 mls/hr Insulin Aspart (Novolog) 0 unit SC ACHS [facility]; Protocol Last Admin: 08/09/18 12:32 Dose: 2 units Insulin Glargine (Lantus) 35 unit SC HS [facility] Last Admin: 08/08/18 21:24 Dose: 35 u Lamotrigine (Lamictal) 25 mg PO BID [facility] Last Admin: 08/09/18 09:37 Dose: 25 mg Losartan Potassium (Cozaar) 100 mg PO DAILY [facility] Last Admin: 08/09/18 09:37 Dose: 100 mg Tamsulosin HCl (Flomax) 0.4 mg PO DAILY [facility] Last Admin: 08/09/18 09:37 Dose: 0.4 mg Vitamin B Complex/Vit C/Folic Acid (Nephro-Poly) 1 tab PO 0800 [facility] Last Admin: 08/09/18 07:39 Dose: 1 tab - Labs Labs: 08/09/18 09:31 08/09/18 09:31 PT 12.5 SECONDS (9.7-12.2) H 08/04/18 11:56 INR 1.1 08/04/18 11:56 APTT 28 SECONDS (21-34) 08/04/18 11:56
[2018-08-09] MEDS: (Lantus) Insulin Glargine, Recombinant SC SCH (21:06)
[2018-08-10] MEDS: Multivitamin Vitamin B Complex (Nephro-Vite) Tab PO SCH (08:15)
[2018-08-10] MEDS: (Novolog) Insulin Aspart, Recombinant 100 u/ml 10 ml vial SC SCH ×4 (08:15→21:22)
[2018-08-10] MEDS: Piperacill/Tazo 2.25gm in Dex 2.25 GM/50 ML BAG IVPB SCH ×2 (10:00→21:07)
[2018-08-10] MEDS: EPOETIN ALFA 4,000 UNIT/ML ML Dialysis IV SCH (12:49)
--- NOTE | 2018-08-10 14:48 | CP.PCM.PN ---
Subjective - Date & Time of Evaluation Date of Evaluation: 08/10/18 Time of Evaluation: 14:47 - Subjective Subjective: Nephrology Consultation Note: Assessment: Stable Rt foot cellulitis and Pneumonia Diabetic chronic Kidney Disease (E11.22) Hypertensive Chronic Kidney Disease (I12.0) End stage renal disease (N18.6) dependence on hemodialysis (Z99.2) (MWF) via AVF Anemia (D64.9), Hyperphosphatemia (E83.39), Secondary Hyperparathyroidism (E21.1), HTN (I12.0) Plan: Will plan for HD MWF schedule as ordered. Continue with Nephrovite 1 tab/day. PRBC as needed for anemia.on LESLI with dialysis as last Hb 9.7 Continue with phos binders, last phos level: 3.8 BP control with meds as ordered. Patient on RAAS ish Glycemic control, Dialysis consistent diet Further work up/management as per primary team Dose meds/antibiotics (if needed) for ESRD status. Avoid fleets enema/magnesium based laxatives. Thanks for allowing me to participate in care of your patient. Will follow patient with you. Please call if any Qs Dr Edwardo Valenzuela Office: [phone] Chief Complaint;Rt toe infection and cough HPI: Pt is a 78 year old male with PMHx of DM, HTN, HLD, ESRD on dialysis (MWF), CAD s/p CABG, AVR, BPH and Bipolar disorder presents to ED complaining of cough x 2 weeks and redness, swelling of the right big toe and admitted for cellulitis, pneumonia. Renal consult requested for ESRD management. last HD friday. otherwise feels usual health ROS: Cardiovascular: No chest pain. Pulmonary: No shortness of breath . Gastrointestinal: denies abdominal pain No nausea. No vomiting. Genitourinary: No pain while urinating. Denies blood in urine. All other negative except as mentioned in HPI Physical Examination: seen on HD General Appearance: Comfortable, in no acute respiratory distress, co-operative . Vitals reviewed and noted as below Head; Atraumatic, normocephalic ENT: no ulcers no thrush. Tongue is midline. Oropharynx: no rash or ulcers. EYES: Pupils are equal, round and reactive to light accommodation. Eye muscles and extraocular movement intact. Sclera is anicteric. Neck; supple no lymphadenopathy, no thyromegaly or bruit Lungs: Normal respiratory rate/effort. Breath sounds bilateral equal and clear Heart: Normal rate. s1s2 normal. No rub or gallop. Extremities: no edema. No varicose veins. Neurological: Patient is alert, awake and oriented to person, place and time. No focal deficit. Strength bilateral appropriate and equal Skin: Warm and dry. Normal turgor. No rash. Palpitation: Normal elasticity for age Abdomen: Abdomen is soft. Bowel sounds +. There is no abdominal tenderness, no guarding/rigidity or organomegaly Psych: normal insight and normal affect/mood MSK: no joint tenderness or swelling. Digits and nails normal, no deformity : kidney or bladder not palpable Access: AVF Labs/imaging reviewed. Past medical history, past surgical history, family history, social history, allergy reviewed and noted as below Family Hx: no hx of CKD. Non contributory Objective - Vital Signs/Intake and Output Vital Signs (last 24 hours): Temp Pulse Resp BP Pulse Ox 97.3 F L 81 16 154/77 H 96 08/10/18 12:55 08/10/18 12:55 08/10/18 09:25 08/10/18 12:55 08/10/18 07:00 Intake and Output: 08/10/18 08/10/18 06:59 18:59 Intake Total 400 730 Output Total 1 Balance 399 730 - Medications Medications: Current Medications Acetaminophen (Tylenol 325mg Tab) 650 mg PO Q6 PRN PRN Reason: Fever >100.4 F Acetaminophen (Tylenol 325mg Tab) 650 mg PO Q6 PRN PRN Reason: Pain, moderate (4-7) Amlodipine Besylate (Norvasc) 10 mg PO DAILY [facility] Last Admin: 08/10/18 09:36 Dose: Not Given Calcium Acetate (Phoslo) 1,334 mg PO BIDCC [facility] Last Admin: 08/10/18 08:15 Dose: 1,334 mg Carvedilol (Coreg) 6.25 mg PO DAILY [facility] Last Admin: 08/10/18 09:36 Dose: Not Given Docusate Sodium (Colace) 100 mg PO BID [facility] Last Admin: 08/10/18 09:35 Dose: Not Given Epoetin Chato (Procrit) 4,000 unit IV MWF [facility] Last Admin: 08/10/18 12:49 Dose: 4,000 unit Famotidine (Pepcid) 20 mg PO DAILY [facility] Last Admin: 08/10/18 09:37 Dose: Not Given Glimepiride (Amaryl) 4 mg PO DAILY [facility] Last Admin: 08/10/18 09:35 Dose: Not Given Vancomycin HCl 1,000 mg/ (Sodium Chloride) 250 mls @ 166.6 mls/hr IVPB MWF [facility]; Protocol Last Admin: 08/10/18 14:08 Dose: 166.6 mls/hr Piperacillin Sod/Tazobactam Sod (Zosyn 2.25 Gm Iv Premix) 2.25 gm in 50 mls @ 100 mls/hr IVPB Q12H [facility]; Protocol Last Admin: 08/10/18 10:00 Dose: Not Given Insulin Aspart (Novolog) 0 unit SC ACHS [facility]; Protocol Last Admin: 08/10/18 11:50 Dose: Not Given Insulin Glargine (Lantus) 35 unit SC HS [facility] Last Admin: 08/09/18 21:06 Dose: 35 u Lamotrigine (Lamictal) 25 mg PO BID [facility] Last Admin: 08/10/18 09:36 Dose: Not Given Losartan Potassium (Cozaar) 100 mg PO DAILY [facility] Last Admin: 08/10/18 09:36 Dose: Not Given Tamsulosin HCl (Flomax) 0.4 mg PO DAILY [facility] Last Admin: 08/10/18 09:36 Dose: Not Given Vitamin B Complex/Vit C/Folic Acid (Nephro-Poly) 1 tab PO 0800 [facility] Last Admin: 08/10/18 08:15 Dose: 1 tab - Labs Labs: 08/09/18 09:31 08/09/18 09:31 PT 12.5 SECONDS (9.7-12.2) H 08/04/18 11:56 INR 1.1 08/04/18 11:56 APTT 28 SECONDS (21-34) 08/04/18 11:56
--- NOTE | 2018-08-10 17:49 | CP.PCM.PN ---
Subjective - Date & Time of Evaluation Date of Evaluation: 08/10/18 Time of Evaluation: 11:00 - Subjective Subjective: Podiatry Progress Note- Dr. Jenkins 78M seen and evaluated at bedside for bilateral heel deep tissue injuries and right great toe ulceration. Patient reports feeling the same. Denies of pain. Denies acute overnight events. Denies nausea, fever, shortness of breath, chest pains or chills. Objective - Vital Signs/Intake and Output Vital Signs (last 24 hours): Temp Pulse Resp BP Pulse Ox 98.8 F 69 20 150/61 99 08/10/18 17:02 08/10/18 17:02 08/10/18 17:02 08/10/18 17:02 08/10/18 17:02 Intake and Output: 08/10/18 08/10/18 06:59 18:59 Intake Total 400 730 Output Total 1 Balance 399 730 - Medications Medications: Current Medications Acetaminophen (Tylenol 325mg Tab) 650 mg PO Q6 PRN PRN Reason: Fever >100.4 F Acetaminophen (Tylenol 325mg Tab) 650 mg PO Q6 PRN PRN Reason: Pain, moderate (4-7) Amlodipine Besylate (Norvasc) 10 mg PO DAILY [facility] Last Admin: 08/10/18 09:36 Dose: Not Given [facility] Last Admin: 08/10/18 17:06 Dose: 1,334 mg Carvedilol (Coreg) 6.25 mg PO DAILY [facility] Last Admin: 08/10/18 09:36 Dose: Not Given Docusate Sodium (Colace) 100 mg PO BID [facility] Last Admin: 08/10/18 17:06 Dose: 100 mg Epoetin Chato (Procrit) 4,000 unit IV [facility] Last Admin: 08/10/18 12:49 Dose: 4,000 unit Famotidine (Pepcid) 20 mg PO DAILY [facility] Last Admin: 08/10/18 09:37 Dose: Not Given Glimepiride (Amaryl) 4 mg PO DAILY [facility] Last Admin: 08/10/18 09:35 Dose: Not Given Vancomycin HCl 1,000 mg/ (Sodium Chloride) 250 mls @ 166.6 mls/hr IVPB [facility]; Protocol Last Admin: 08/10/18 14:08 Dose: 166.6 mls/hr Piperacillin Sod/Tazobactam Sod (Zosyn 2.25 Gm Iv Premix) 2.25 gm in 50 mls @ 100 mls/hr IVPB Q12H [facility]; Protocol Last Admin: 08/10/18 10:00 Dose: Not Given Insulin Aspart (Novolog) 0 unit SC ACHS [facility]; Protocol Last Admin: 08/10/18 17:04 Dose: 6 units Insulin Glargine (Lantus) 35 unit SC HS [facility] Last Admin: 08/09/18 21:06 Dose: 35 u Lamotrigine (Lamictal) 25 mg PO BID [facility] Last Admin: 08/10/18 17:06 Dose: 25 mg Losartan Potassium (Cozaar) 100 mg PO DAILY [facility] Last Admin: 08/10/18 09:36 Dose: Not Given Tamsulosin HCl (Flomax) 0.4 mg PO DAILY [facility] Last Admin: 08/10/18 09:36 Dose: Not Given Vitamin B Complex/Vit C/Folic Acid (Nephro-Poly) 1 tab PO 0800 [facility] Last Admin: 08/10/18 08:15 Dose: 1 tab - Labs Labs: 08/09/18 09:31 08/09/18 09:31 PT 12.5 SECONDS (9.7-12.2) H 08/04/18 11:56 INR 1.1 08/04/18 11:56 APTT 28 SECONDS (21-34) 08/04/18 11:56 - Constitutional Appears: Well, Non-toxic, No Acute Distress - Extremities Exam Extremities Exam: absent: Calf Tenderness Additional comments: Lower extremity focused exam: Vasc: DP/PT pulses palpable 2/4 B/L. Temperature gradient warm to cool B/L. CFT < 3 sec to all digits. No pedal edema noted Derm: Dry hyperkeratotic tissue noted to entirety of distal tip of right hallux with hyperpigmentation of digit and centrally located ulceration to plantar aspect of distal phalanx. Ulcer is circular, approx 0.4cm in diameter and 0.1cm in depth with no active drainage, no malodor, no purulence, no fluctuance, no alexus wound erythema. No evidence of necrosis or gangrenous changes at present. Deep tissue injuries noted to bilateral posteroplantar heels. No breaks in skin or soft tissue of heels noted B/L. Neuro: protective sensation grossly intact Ortho: no tenderness to palpation of right great toe ulceration or bilateral plantar heels at site of deep tissue injuries Assessment and Plan - Assessment and Plan (Free Text) Assessment: 78 year old male patient with right great toe ulceration and bilateral heel deep tissue injuries likely secondary to pressure -stable Plan: Patient seen and evaluated at bedside with attending Dr. Rodriguez Jenkins Afebrile, WBC 7.6 on 08/09/17 Foot x-rays show no acute osseous findings, no evidence of osteomyelitis Arterial duplex studies show no significant arterial insufficiency to lower extremities Podiatry will continue with local wound care Cleansed with saline solution, dressed with dry dsd, ABD and kerlix Offloading with multipodus boots. Multipodus boots are to be worn at all times in bed Wound culture; staph aureus, cornybacterium Continue IV abx per ID recommendations; Zosyn and Vancomycin
[2018-08-10] MEDS: (Lantus) Insulin Glargine, Recombinant SC SCH (21:27)
--- NOTE | 2018-08-11 01:35 | CP.PCM.PN ---
Subjective - Date & Time of Evaluation Date of Evaluation: 08/10/18 Time of Evaluation: 20:00 - Subjective Subjective: Patient still a mild productive cough. Afebrile with better appetite. Ulcer of the right great toe clean. Deep tissue injury to the heels improving. Objective - Vital Signs/Intake and Output Vital Signs (last 24 hours): Temp Pulse Resp BP Pulse Ox 98 F 73 20 141/60 98 08/10/18 23:54 08/10/18 23:54 08/10/18 23:54 08/10/18 23:54 08/10/18 23:54 Intake and Output: 08/10/18 08/11/18 18:59 06:59 Intake Total 730 50 Balance 730 50 - Medications Medications: Current Medications Acetaminophen (Tylenol 325mg Tab) 650 mg PO Q6 PRN PRN Reason: Fever >100.4 F Acetaminophen (Tylenol 325mg Tab) 650 mg PO Q6 PRN PRN Reason: Pain, moderate (4-7) Amlodipine Besylate (Norvasc) 10 mg PO DAILY [facility] Last Admin: 08/10/18 09:36 Dose: Not Given [facility] Last Admin: 08/10/18 17:06 Dose: 1,334 mg Carvedilol (Coreg) 6.25 mg PO DAILY [facility] Last Admin: 08/10/18 09:36 Dose: Not Given Docusate Sodium (Colace) 100 mg PO BID [facility] Last Admin: 08/10/18 17:06 Dose: 100 mg Epoetin Chato (Procrit) 4,000 unit IV [facility] [place] Last Admin: 08/10/18 12:49 Dose: 4,000 unit Famotidine (Pepcid) 20 mg PO DAILY [facility] Last Admin: 08/10/18 09:37 Dose: Not Given Glimepiride (Amaryl) 4 mg PO DAILY [facility] Last Admin: 08/10/18 09:35 Dose: Not Given Vancomycin HCl 1,000 mg/ (Sodium Chloride) 250 mls @ 166.6 mls/hr IVPB [facility] [place]; Protocol Last Admin: 08/10/18 14:08 Dose: 166.6 mls/hr Piperacillin Sod/Tazobactam Sod (Zosyn 2.25 Gm Iv Premix) 2.25 gm in 50 mls @ 100 mls/hr IVPB Q12H [facility]; Protocol Last Admin: 08/10/18 21:07 Dose: 100 mls/hr Insulin Aspart (Novolog) 0 unit SC ACHS [facility]; Protocol Last Admin: 08/10/18 21:22 Dose: Not Given Insulin Glargine (Lantus) 35 unit SC HS [facility] Last Admin: 08/10/18 21:27 Dose: 35 u Lamotrigine (Lamictal) 25 mg PO BID [facility] Last Admin: 08/10/18 17:06 Dose: 25 mg Losartan Potassium (Cozaar) 100 mg PO DAILY [facility] Last Admin: 08/10/18 09:36 Dose: Not Given Tamsulosin HCl (Flomax) 0.4 mg PO DAILY [facility] Last Admin: 08/10/18 09:36 Dose: Not Given Vitamin B Complex/Vit C/Folic Acid (Nephro-Poly) 1 tab PO 0800 [facility] Last Admin: 08/10/18 08:15 Dose: 1 tab - Labs Labs: 08/09/18 09:31 08/09/18 09:31 PT 12.5 SECONDS (9.7-12.2) H 08/04/18 11:56 INR 1.1 08/04/18 11:56 APTT 28 SECONDS (21-34) 08/04/18 11:56 - Constitutional Appears: No Acute Distress, Chronically Ill - Head Exam Head Exam: NORMOCEPHALIC - Eye Exam Eye Exam: Normal appearance - ENT Exam ENT Exam: Normal Exam - Neck Exam Neck Exam: Normal Inspection - Respiratory Exam Respiratory Exam: Rhonchi - Cardiovascular Exam Cardiovascular Exam: REGULAR RHYTHM, Murmur - GI/Abdominal Exam GI & Abdominal Exam: Soft, Normal Bowel Sounds - Rectal Exam Rectal Exam: Deferred - Extremities Exam Extremities Exam: Normal Inspection - Back Exam Back Exam: NORMAL INSPECTION - Neurological Exam Neurological Exam: Alert, Awake, Oriented x3 - Psychiatric Exam Psychiatric exam: Anxious Assessment and Plan (1) Ischemic ulcer of heel with necrosis of muscle Status: Acute (2) Gangrene of toe of right foot Status: Acute (3) Right middle lobe pneumonia Assessment & Plan: On IV antibiotics. Status: Acute (4) Uncontrolled diabetes mellitus Status: Chronic (5) ESRD on hemodialysis Status: Chronic
[2018-08-11] MEDS: Multivitamin Vitamin B Complex (Nephro-Vite) Tab PO SCH (08:17)
[2018-08-11] MEDS: (Novolog) Insulin Aspart, Recombinant 100 u/ml 10 ml vial SC SCH ×4 (08:17→21:33)
[2018-08-11] MEDS: Piperacill/Tazo 2.25gm in Dex 2.25 GM/50 ML BAG IVPB SCH (10:16)
--- NOTE | 2018-08-11 11:29 | CP.PCM.PN ---
Subjective - Date & Time of Evaluation Date of Evaluation: 08/11/18 Time of Evaluation: 11:28 - Subjective Subjective: Nephrology Consultation Note: Assessment: Stable Rt foot cellulitis and Pneumonia Diabetic chronic Kidney Disease (E11.22) Hypertensive Chronic Kidney Disease (I12.0) End stage renal disease (N18.6) dependence on hemodialysis (Z99.2) (MWF) via AVF Anemia (D64.9), Hyperphosphatemia (E83.39), Secondary Hyperparathyroidism (E21.1), HTN (I12.0) Plan: Will plan for HD MWF schedule as ordered. Continue with Nephrovite 1 tab/day. PRBC as needed for anemia.on LESLI with dialysis as last Hb 9.7 Continue with phos binders, last phos level: 3.8 BP control with meds as ordered. Patient on RAAS ish Glycemic control, Dialysis consistent diet Further work up/management as per primary team Dose meds/antibiotics (if needed) for ESRD status. Avoid fleets enema/magnesium based laxatives. pt stable for d/c from renal perspective when planned Thanks for allowing me to participate in care of your patient. Will follow patient with you. Please call if any Qs Dr Edwardo Valenzuela Office: [phone] Chief Complaint;Rt toe infection and cough HPI: Pt is a 78 year old male with PMHx of DM, HTN, HLD, ESRD on dialysis (MWF), CAD s/p CABG, AVR, BPH and Bipolar disorder presents to ED complaining of cough x 2 weeks and redness, swelling of the right big toe and admitted for cellulitis, pneumonia. Renal consult requested for ESRD management. last HD friday. otherwise feels usual health ROS: Cardiovascular: No chest pain. Pulmonary: No shortness of breath . Gastrointestinal: denies abdominal pain No nausea. No vomiting. Genitourinary: No pain while urinating. Denies blood in urine. All other negative except as mentioned in HPI Physical Examination: General Appearance: Comfortable, in no acute respiratory distress, co-operative . Vitals reviewed and noted as below Head; Atraumatic, normocephalic ENT: no ulcers no thrush. Tongue is midline. Oropharynx: no rash or ulcers. EYES: Pupils are equal, round and reactive to light accommodation. Eye muscles and extraocular movement intact. Sclera is anicteric. Neck; supple no lymphadenopathy, no thyromegaly or bruit Lungs: Normal respiratory rate/effort. Breath sounds bilateral equal and clear Heart: Normal rate. s1s2 normal. No rub or gallop. Extremities: no edema. No varicose veins. Neurological: Patient is alert, awake and oriented to person, place and time. No focal deficit. Strength bilateral appropriate and equal Skin: Warm and dry. Normal turgor. No rash. Palpitation: Normal elasticity for age Abdomen: Abdomen is soft. Bowel sounds +. There is no abdominal tenderness, no guarding/rigidity or organomegaly Psych: normal insight and normal affect/mood MSK: no joint tenderness or swelling. Digits and nails normal, no deformity : kidney or bladder not palpable Access: AVF Labs/imaging reviewed. Past medical history, past surgical history, family history, social history, allergy reviewed and noted as below Family Hx: no hx of CKD. Non contributory Objective - Vital Signs/Intake and Output Vital Signs (last 24 hours): Temp Pulse Resp BP Pulse Ox 97.9 F 71 20 135/64 96 08/11/18 07:50 08/11/18 07:50 08/11/18 07:50 08/11/18 07:50 08/11/18 07:50 Intake and Output: 08/11/18 08/11/18 06:59 18:59 Intake Total 350 Output Total 0 Balance 350 - Medications Medications: Current Medications Acetaminophen (Tylenol 325mg Tab) 650 mg PO Q6 PRN PRN Reason: Fever >100.4 F Acetaminophen (Tylenol 325mg Tab) 650 mg PO Q6 PRN PRN Reason: Pain, moderate (4-7) Amlodipine Besylate (Norvasc) 10 mg PO DAILY [facility] Last Admin: 08/11/18 10:14 Dose: 10 mg Calcium Acetate (Phoslo) 1,334 mg PO BIDCC [facility] Last Admin: 08/11/18 08:17 Dose: 1,334 mg Carvedilol (Coreg) 6.25 mg PO DAILY [facility] Last Admin: 08/11/18 10:14 Dose: 6.25 mg Docusate Sodium (Colace) 100 mg PO BID [facility] Last Admin: 08/11/18 10:14 Dose: 100 mg Epoetin Chato (Procrit) 4,000 unit IV MWF [facility] Last Admin: 08/10/18 12:49 Dose: 4,000 unit Famotidine (Pepcid) 20 mg PO DAILY [facility] Last Admin: 08/11/18 10:14 Dose: 20 mg Glimepiride (Amaryl) 4 mg PO DAILY [facility] Last Admin: 08/11/18 10:14 Dose: 4 mg Vancomycin HCl 1,000 mg/ (Sodium Chloride) 250 mls @ 166.6 mls/hr IVPB MWF [facility]; Protocol Last Admin: 08/10/18 14:08 Dose: 166.6 mls/hr Piperacillin Sod/Tazobactam Sod (Zosyn 2.25 Gm Iv Premix) 2.25 gm in 50 mls @ 100 mls/hr IVPB Q12H [facility]; Protocol Last Admin: 08/11/18 10:16 Dose: 100 mls/hr Insulin Aspart (Novolog) 0 unit SC ACHS [facility]; Protocol Last Admin: 08/11/18 08:17 Dose: 3 units Insulin Glargine (Lantus) 40 unit SC HS [facility] Lamotrigine (Lamictal) 25 mg PO BID [facility] Last Admin: 08/11/18 10:14 Dose: 25 mg Losartan Potassium (Cozaar) 100 mg PO DAILY [facility] Last Admin: 08/11/18 10:14 Dose: 100 mg Tamsulosin HCl (Flomax) 0.4 mg PO DAILY [facility] Last Admin: 08/11/18 10:16 Dose: 0.4 mg Vitamin B Complex/Vit C/Folic Acid (Nephro-Poly) 1 tab PO 0800 [facility] Last Admin: 08/11/18 08:17 Dose: 1 tab - Labs Labs: 08/09/18 09:31 08/09/18 09:31 PT 12.5 SECONDS (9.7-12.2) H 08/04/18 11:56 INR 1.1 08/04/18 11:56 APTT 28 SECONDS (21-34) 08/04/18 11:56
--- NOTE | 2018-08-11 12:09 | CP.PCM.PN ---
Subjective - Date & Time of Evaluation Date of Evaluation: 08/11/18 Time of Evaluation: 09:00 - Subjective Subjective: right foot wound improving afeb on IV antibiotics Objective - Vital Signs/Intake and Output Vital Signs (last 24 hours): Temp Pulse Resp BP Pulse Ox 97.9 F 71 20 135/64 96 08/11/18 07:50 08/11/18 07:50 08/11/18 07:50 08/11/18 07:50 08/11/18 07:50 Intake and Output: 08/11/18 08/11/18 06:59 18:59 Intake Total 350 Output Total 0 Balance 350 - Medications Medications: Current Medications Acetaminophen (Tylenol 325mg Tab) 650 mg PO Q6 PRN PRN Reason: Fever >100.4 F Acetaminophen (Tylenol 325mg Tab) 650 mg PO Q6 PRN PRN Reason: Pain, moderate (4-7) Amlodipine Besylate (Norvasc) 10 mg PO DAILY [facility] Last Admin: 08/11/18 10:14 Dose: 10 mg [facility] Last Admin: 08/11/18 08:17 Dose: 1,334 mg Carvedilol (Coreg) 6.25 mg PO DAILY [facility] Last Admin: 08/11/18 10:14 Dose: 6.25 mg Docusate Sodium (Colace) 100 mg PO BID [facility] Last Admin: 08/11/18 10:14 Dose: 100 mg Epoetin Chato (Procrit) 4,000 unit IV [facility] Last Admin: 08/10/18 12:49 Dose: 4,000 unit Famotidine (Pepcid) 20 mg PO DAILY [facility] Last Admin: 08/11/18 10:14 Dose: 20 mg Glimepiride (Amaryl) 4 mg PO DAILY [facility] Last Admin: 08/11/18 10:14 Dose: 4 mg Vancomycin HCl 1,000 mg/ (Sodium Chloride) 250 mls @ 166.6 mls/hr IVPB MWF [facility]; Protocol Last Admin: 08/10/18 14:08 Dose: 166.6 mls/hr Piperacillin Sod/Tazobactam Sod (Zosyn 2.25 Gm Iv Premix) 2.25 gm in 50 mls @ 100 mls/hr IVPB Q12H [facility]; Protocol Last Admin: 08/11/18 10:16 Dose: 100 mls/hr Insulin Aspart (Novolog) 0 unit SC ACHS [facility]; Protocol Last Admin: 08/11/18 08:17 Dose: 3 units Insulin Glargine (Lantus) 40 unit SC [facility] Lamotrigine (Lamictal) 25 mg PO BID [facility] Last Admin: 08/11/18 10:14 Dose: 25 mg Losartan Potassium (Cozaar) 100 mg PO DAILY [facility] Last Admin: 08/11/18 10:14 Dose: 100 mg Tamsulosin HCl (Flomax) 0.4 mg PO DAILY [facility] Last Admin: 08/11/18 10:16 Dose: 0.4 mg Vitamin B Complex/Vit C/Folic Acid (Nephro-Poly) 1 tab PO 0800 [facility] Last Admin: 08/11/18 08:17 Dose: 1 tab - Labs Labs: 08/09/18 09:31 08/09/18 09:31 PT 12.5 SECONDS (9.7-12.2) H 08/04/18 11:56 INR 1.1 08/04/18 11:56 APTT 28 SECONDS (21-34) 08/04/18 11:56 - Constitutional Appears: Non-toxic, Chronically Ill - Head Exam Head Exam: NORMOCEPHALIC - Eye Exam Eye Exam: absent: Scleral icterus - ENT Exam ENT Exam: Mucous Membranes Dry - Neck Exam Neck Exam: absent: Lymphadenopathy - Respiratory Exam Respiratory Exam: Decreased Breath Sounds - Cardiovascular Exam Cardiovascular Exam: REGULAR RHYTHM - GI/Abdominal Exam GI & Abdominal Exam: Distended, Soft - Rectal Exam Rectal Exam: Deferred - Exam Exam: NORMAL INSPECTION - Extremities Exam Extremities Exam: Pedal Edema - Back Exam Back Exam: absent: CVA tenderness (L), CVA tenderness (R) - Neurological Exam Neurological Exam: Alert, Awake, Oriented x3 Assessment and Plan (1) Gangrene of toe of right foot Status: Acute (2) Infected ulcer of skin Status: Acute (3) Ischemic ulcer of heel with necrosis of muscle Status: Acute (4) Pneumonia Status: Acute (5) Right middle lobe pneumonia Status: Acute (6) ESRD on hemodialysis Status: Chronic (7) Uncontrolled diabetes mellitus Status: Chronic (8) MRSA (methicillin resistant staph aureus) culture positive Status: Acute - Assessment and Plan (Free Text) Assessment: IV rx renewed cont Vanco for 3 weeks with HD
--- NOTE | 2018-08-11 14:19 | RAD ---
Date of service: 08/11/2018 HISTORY: F/U pneumonia COMPARISON: 08/04/2018 FINDINGS: LUNGS: No air bronchograms noted. Improved aeration apparent the medial right lower lobe. Vague left inferolateral hazy opacity-not significantly changed some chronic left pleural parenchymal pathology here is a consideration. Small left pleural effusion also suspect. PLEURA: Small left pleural effusion suspect. No significant change. No pneumothorax seen. CARDIOVASCULAR: There is presence of aortic atherosclerotic calcification on x-ray. Probable top-normal heart size. No significant appearing pulmonary venous congestion. OSSEOUS STRUCTURES: Midline sternotomy wires. Thoracic spondylosis. VISUALIZED UPPER ABDOMEN: Normal. OTHER FINDINGS: None. IMPRESSION: The previously referenced medial right lower lobe infiltrate appears clearer on the current exam. No worsening or interval pathology noted. Chronic appearing left inferolateral pleural thickening with or without left pleural effusion-similar appearance
[2018-08-11] MEDS: (Lantus) Insulin Glargine, Recombinant SC SCH (21:29)
[2018-08-12] MEDS: (Novolog) Insulin Aspart, Recombinant 100 u/ml 10 ml vial SC SCH ×4 (07:40→21:25)
--- NOTE | 2018-08-12 07:53 | CP.PCM.PN ---
Subjective - Date & Time of Evaluation Date of Evaluation: 08/11/18 Time of Evaluation: 12:30 - Subjective Subjective: Podiatry Progress Note- Dr. Jenkins 78M seen and evaluated at bedside for bilateral heel deep tissue injuries and right great toe ulceration. Patient seen with attending Dr. Jenkins at bedside. Patient is in NAD and seen resting comfortably in bed. Patient reports feeling the same, reports no pain at the lower extremities. Denies calf pain or tenderness. Denies acute overnight events. Denies nausea, fever, shortness of breath, chest pains or chills. Objective - Vital Signs/Intake and Output Vital Signs (last 24 hours): Temp Pulse Resp BP Pulse Ox 97.8 F 63 20 137/62 96 08/12/18 00:00 08/12/18 00:00 08/12/18 00:00 08/12/18 00:00 08/12/18 00:00 Intake and Output: 08/12/18 08/12/18 06:59 18:59 Intake Total 180 Balance 180 - Medications Medications: Current Medications Acetaminophen (Tylenol 325mg Tab) 650 mg PO Q6 PRN PRN Reason: Fever >100.4 F Acetaminophen (Tylenol 325mg Tab) 650 mg PO Q6 PRN PRN Reason: Pain, moderate (4-7) Amlodipine Besylate (Norvasc) 10 mg PO DAILY [facility] Last Admin: 08/11/18 10:14 Dose: 10 mg Calcium Acetate (Phoslo) 1,334 mg PO BIDCC [facility] Last Admin: 08/11/18 17:12 Dose: 1,334 mg Carvedilol (Coreg) 6.25 mg PO DAILY [facility] Last Admin: 08/11/18 10:14 Dose: 6.25 mg Docusate Sodium (Colace) 100 mg PO BID [facility] Last Admin: 08/11/18 17:12 Dose: 100 mg Epoetin Chato (Procrit) 4,000 unit IV MWF [facility] Last Admin: 08/10/18 12:49 Dose: 4,000 unit Famotidine (Pepcid) 20 mg PO DAILY [facility] Last Admin: 08/11/18 10:14 Dose: 20 mg Glimepiride (Amaryl) 4 mg PO DAILY [facility] Last Admin: 08/11/18 10:14 Dose: 4 mg Vancomycin HCl 1,000 mg/ (Sodium Chloride) 250 mls @ 166.6 mls/hr IVPB MWF [facility]; Protocol Last Admin: 08/10/18 14:08 Dose: 166.6 mls/hr Insulin Aspart (Novolog) 0 unit SC ACHS [facility]; Protocol Last Admin: 08/12/18 07:40 Dose: Not Given Insulin Glargine (Lantus) 40 unit SC HS [facility] Last Admin: 08/11/18 21:29 Dose: 40 u Lamotrigine (Lamictal) 25 mg PO BID [facility] Last Admin: 08/11/18 17:12 Dose: 25 mg Losartan Potassium (Cozaar) 100 mg PO DAILY [facility] Last Admin: 08/11/18 10:14 Dose: 100 mg Tamsulosin HCl (Flomax) 0.4 mg PO DAILY [facility] Last Admin: 08/11/18 10:16 Dose: 0.4 mg Vitamin B Complex/Vit C/Folic Acid (Nephro-Poly) 1 tab PO 0800 [facility] Last Admin: 08/11/18 08:17 Dose: 1 tab - Labs Labs: 08/09/18 09:31 08/09/18 09:31 PT 12.5 SECONDS (9.7-12.2) H 08/04/18 11:56 INR 1.1 08/04/18 11:56 APTT 28 SECONDS (21-34) 08/04/18 11:56 - Constitutional Appears: Well, Non-toxic, No Acute Distress - Extremities Exam Extremities Exam: absent: Calf Tenderness Additional comments: Lower extremity focused exam: Vasc: DP/PT pulses palpable 2/4 B/L. Temperature gradient warm to cool B/L. CFT < 3 sec to all digits. No pedal edema noted Derm: Dry hyperkeratotic tissue noted to entirety of distal tip of right hallux with hyperpigmentation of digit and centrally located ulceration to plantar aspect of distal phalanx. Ulcer is circular, approx 0.4cm in diameter and 0.1cm in depth with no active drainage, no malodor, no purulence, no fluctuance, no alexus wound erythema. No evidence of necrosis or gangrenous changes at present. Deep tissue injuries noted to bilateral posteroplantar heels. No breaks in skin or soft tissue of heels noted B/L. Neuro: protective sensation grossly intact Ortho: no tenderness to palpation of right great toe ulceration or bilateral plantar heels at site of deep tissue injuries - Neurological Exam Neurological Exam: Alert, Awake Assessment and Plan - Assessment and Plan (Free Text) Assessment: 78 year old male patient with right great toe ulceration and bilateral heel deep tissue injuries likely secondary to pressure -stable Plan: Patient seen and evaluated at bedside with attending Dr. Rodriguez Jenkins Afebrile, WBC 7.6 on 08/09/17 Foot x-rays show no acute osseous findings, no evidence of osteomyelitis Arterial duplex studies show no significant arterial insufficiency to lower extremities Right distal hallux was cleansed with saline solution. Using a nipper all nonviable, necrotic tissue from distal tip removed until healthier epithelized tissue appeared. The distal hallux was noted to have superficial ulceration measuring approximately 1 cm in diameter x .1 to the distal tip of hallux. Wound base is 100% granular, no abscess, no odor, no streaking , no erythema Podiatry will continue with local wound care, no surgical intervention Cleansed left and right foot with saline solution, dressed with dry dsd, ABD and kerlix Offloading with multipodus boots. Multipodus boots are to be worn at all times in bed Wound culture; staph aureus, cornybacterium Continue IV abx per ID recommendations; Zosyn and Vancomycin No surgical intervention at this time. Will provide local wound care while in house Stable per podiatry standpoint
[2018-08-12] MEDS: Multivitamin Vitamin B Complex (Nephro-Vite) Tab PO SCH (08:06)
--- NOTE | 2018-08-12 10:51 | CP.PCM.PN ---
Subjective - Date & Time of Evaluation Date of Evaluation: 08/12/18 Time of Evaluation: 10:50 - Subjective Subjective: Nephrology Consultation Note: Assessment: Stable Rt foot cellulitis and Pneumonia Diabetic chronic Kidney Disease (E11.22) Hypertensive Chronic Kidney Disease (I12.0) End stage renal disease (N18.6) dependence on hemodialysis (Z99.2) (MWF) via AVF Anemia (D64.9), Hyperphosphatemia (E83.39), Secondary Hyperparathyroidism (E21.1), HTN (I12.0) Plan: Will plan for HD MWF schedule as ordered. Continue with Nephrovite 1 tab/day. PRBC as needed for anemia.on LESLI with dialysis as last Hb 9.7 Continue with phos binders, last phos level: 3.8 BP control with meds as ordered. Patient on RAAS ish Glycemic control, Dialysis consistent diet Further work up/management as per primary team Dose meds/antibiotics (if needed) for ESRD status. Avoid fleets enema/magnesium based laxatives. pt stable for d/c from renal perspective when planned Thanks for allowing me to participate in care of your patient. Will follow patient with you. Please call if any Qs Dr Edwardo Valenzuela Office: [phone] Chief Complaint;Rt toe infection and cough HPI: Pt is a 78 year old male with PMHx of DM, HTN, HLD, ESRD on dialysis (MWF), CAD s/p CABG, AVR, BPH and Bipolar disorder presents to ED complaining of cough x 2 weeks and redness, swelling of the right big toe and admitted for cellulitis, pneumonia. Renal consult requested for ESRD management. last HD friday. otherwise feels usual health ROS: Cardiovascular: No chest pain. Pulmonary: No shortness of breath . Gastrointestinal: denies abdominal pain No nausea. No vomiting. Genitourinary: No pain while urinating. Denies blood in urine. All other negative except as mentioned in HPI Physical Examination: General Appearance: Comfortable, in no acute respiratory distress, co-operative . Vitals reviewed and noted as below Head; Atraumatic, normocephalic ENT: no ulcers no thrush. Tongue is midline. Oropharynx: no rash or ulcers. EYES: Pupils are equal, round and reactive to light accommodation. Eye muscles and extraocular movement intact. Sclera is anicteric. Neck; supple no lymphadenopathy, no thyromegaly or bruit Lungs: Normal respiratory rate/effort. Breath sounds bilateral equal and clear Heart: Normal rate. s1s2 normal. No rub or gallop. Extremities: no edema. No varicose veins. Neurological: Patient is alert, awake and oriented to person, place and time. No focal deficit. Strength bilateral appropriate and equal Skin: Warm and dry. Normal turgor. No rash. Palpitation: Normal elasticity for age Abdomen: Abdomen is soft. Bowel sounds +. There is no abdominal tenderness, no guarding/rigidity or organomegaly Psych: normal insight and normal affect/mood MSK: no joint tenderness or swelling. Digits and nails normal, no deformity : kidney or bladder not palpable Access: AVF Labs/imaging reviewed. Past medical history, past surgical history, family history, social history, allergy reviewed and noted as below Family Hx: no hx of CKD. Non contributory Objective - Vital Signs/Intake and Output Vital Signs (last 24 hours): Temp Pulse Resp BP Pulse Ox 98.0 F 69 20 148/61 97 08/12/18 08:02 08/12/18 08:02 08/12/18 08:02 08/12/18 08:02 08/12/18 08:02 Intake and Output: 08/12/18 08/12/18 06:59 18:59 Intake Total 180 Balance 180 - Medications Medications: Current Medications Acetaminophen (Tylenol 325mg Tab) 650 mg PO Q6 PRN PRN Reason: Fever >100.4 F Acetaminophen (Tylenol 325mg Tab) 650 mg PO Q6 PRN PRN Reason: Pain, moderate (4-7) Amlodipine Besylate (Norvasc) 10 mg PO DAILY [facility] Last Admin: 08/12/18 10:49 Dose: Not Given Calcium Acetate (Phoslo) 1,334 mg PO BIDCC [facility] Last Admin: 08/12/18 08:06 Dose: 1,334 mg Carvedilol (Coreg) 6.25 mg PO DAILY [facility] Last Admin: 08/12/18 10:31 Dose: Not Given Docusate Sodium (Colace) 100 mg PO BID [facility] Last Admin: 08/12/18 10:48 Dose: 100 mg Epoetin Chato (Procrit) 4,000 unit IV MWF [facility] Last Admin: 08/10/18 12:49 Dose: 4,000 unit Famotidine (Pepcid) 20 mg PO DAILY [facility] Last Admin: 08/12/18 10:49 Dose: 20 mg Glimepiride (Amaryl) 4 mg PO DAILY [facility] Last Admin: 08/12/18 10:48 Dose: 4 mg Vancomycin HCl 1,000 mg/ (Sodium Chloride) 250 mls @ 166.6 mls/hr IVPB [facility]; Protocol Last Admin: 08/10/18 14:08 Dose: 166.6 mls/hr Insulin Aspart (Novolog) 0 unit SC ACHS [facility]; Protocol Last Admin: 08/12/18 07:40 Dose: Not Given Insulin Glargine (Lantus) 40 unit SC HS [facility] Last Admin: 08/11/18 21:29 Dose: 40 u Lamotrigine (Lamictal) 25 mg PO BID [facility] Last Admin: 08/12/18 10:48 Dose: 25 mg Losartan Potassium (Cozaar) 100 mg PO DAILY [facility] Last Admin: 08/12/18 10:48 Dose: Not Given Mupirocin (Bactroban Ointment) 0 gm TOP DAILY [facility] Last Admin: 08/12/18 10:49 Dose: 1 applic Tamsulosin HCl (Flomax) 0.4 mg PO DAILY [facility] Last Admin: 08/12/18 10:48 Dose: 0.4 mg Vitamin B Complex/Vit C/Folic Acid (Nephro-Poly) 1 tab PO 0800 [facility] Last Admin: 08/12/18 08:06 Dose: 1 tab - Labs Labs: 08/09/18 09:31 08/09/18 09:31 PT 12.5 SECONDS (9.7-12.2) H 08/04/18 11:56 INR 1.1 08/04/18 11:56 APTT 28 SECONDS (21-34) 08/04/18 11:56
--- NOTE | 2018-08-12 13:56 | CP.PCM.PN ---
Subjective - Date & Time of Evaluation Date of Evaluation: 08/12/18 Time of Evaluation: 12:00 - Subjective Subjective: Podiatry Progress Note- Dr. Jenkins 78M seen and evaluated at bedside for bilateral heel deep tissue injuries and right great toe ulceration. Patient is in NAD and seen resting comfortably in bed. Denies acute overnight events. Slept well. Reports no pain at the lower extremities. Denies calf pain or tenderness. Denies nausea, fever, shortness of breath, chest pains or chills. Objective - Vital Signs/Intake and Output Vital Signs (last 24 hours): Temp Pulse Resp BP Pulse Ox 98.0 F 69 20 148/61 97 08/12/18 08:02 08/12/18 08:02 08/12/18 08:02 08/12/18 08:02 08/12/18 08:02 Intake and Output: 08/12/18 08/12/18 06:59 18:59 Intake Total 180 Balance 180 - Medications Medications: Current Medications Acetaminophen (Tylenol 325mg Tab) 650 mg PO Q6 PRN PRN Reason: Fever >100.4 F Acetaminophen (Tylenol 325mg Tab) 650 mg PO Q6 PRN PRN Reason: Pain, moderate (4-7) Amlodipine Besylate (Norvasc) 10 mg PO DAILY [facility] Last Admin: 08/12/18 10:49 Dose: Not Given [facility] Last Admin: 08/12/18 08:06 Dose: 1,334 mg Carvedilol (Coreg) 6.25 mg PO DAILY [facility] Last Admin: 08/12/18 10:31 Dose: Not Given Docusate Sodium (Colace) 100 mg PO BID [facility] Last Admin: 08/12/18 10:48 Dose: 100 mg Epoetin Chato (Procrit) 4,000 unit IV [facility] Last Admin: 08/10/18 12:49 Dose: 4,000 unit Famotidine (Pepcid) 20 mg PO DAILY [facility] Last Admin: 08/12/18 10:49 Dose: 20 mg Glimepiride (Amaryl) 4 mg PO DAILY [facility] Last Admin: 08/12/18 10:48 Dose: 4 mg Vancomycin HCl 1,000 mg/ (Sodium Chloride) 250 mls @ 166.6 mls/hr IVPB [facility]; Protocol Last Admin: 08/10/18 14:08 Dose: 166.6 mls/hr Insulin Aspart (Novolog) 0 unit SC ACHS [facility]; Protocol Last Admin: 08/12/18 12:11 Dose: Not Given Insulin Glargine (Lantus) 40 unit SC HS [facility] Last Admin: 08/11/18 21:29 Dose: 40 u Lamotrigine (Lamictal) 25 mg PO BID [facility] Last Admin: 08/12/18 10:48 Dose: 25 mg Losartan Potassium (Cozaar) 100 mg PO DAILY [facility] Last Admin: 08/12/18 10:48 Dose: Not Given Mupirocin (Bactroban Ointment) 0 gm TOP DAILY [facility] Last Admin: 08/12/18 10:49 Dose: 1 applic Tamsulosin HCl (Flomax) 0.4 mg PO DAILY [facility] Last Admin: 08/12/18 10:48 Dose: 0.4 mg Vitamin B Complex/Vit C/Folic Acid (Nephro-Poly) 1 tab PO 0800 [facility] Last Admin: 08/12/18 08:06 Dose: 1 tab - Labs Labs: 08/09/18 09:31 08/09/18 09:31 PT 12.5 SECONDS (9.7-12.2) H 08/04/18 11:56 INR 1.1 08/04/18 11:56 APTT 28 SECONDS (21-34) 08/04/18 11:56 - Constitutional Appears: Well, Non-toxic, No Acute Distress - Extremities Exam Extremities Exam: absent: Calf Tenderness Additional comments: Lower extremity focused exam: Vasc: DP/PT pulses palpable 2/4 B/L. Temperature gradient warm to cool B/L. CFT < 3 sec to all digits. No pedal edema noted Derm: Dry hyperkeratotic tissue noted to entirety of distal tip of right hallux with hyperpigmentation of digit and centrally located ulceration to plantar aspect of distal phalanx. Ulcer is circular, superficial ulceration measuring approximately 1 cm in diameter x .1 to the distal tip of hallux. Wound base is 100% granular, no abscess, no odor, no streaking , no erythemano active drainag e, no malodor, no purulence, no fluctuance, no alexus wound erythema. No evidence of necrosis or gangrenous changes at present. Deep tissue injuries noted to bilateral posteroplantar heels. No breaks in skin or soft tissue of heels noted B/L. Neuro: protective sensation grossly intact Ortho: no tenderness to palpation of right great toe ulceration or bilateral plantar heels at site of deep tissue injuries - Neurological Exam Neurological Exam: Alert, Awake - Psychiatric Exam Psychiatric exam: Normal Affect Assessment and Plan - Assessment and Plan (Free Text) Assessment: 78 year old male patient with right great toe ulceration and bilateral heel deep tissue injuries likely secondary to pressure -stable Plan: Patient seen and evaluated at bedside Afebrile, absent leukocytosis Foot x-rays show no acute osseous findings, no evidence of osteomyelitis Arterial duplex studies show no significant arterial insufficiency to lower extremities Right distal hallux ulceration dressed with saline w2d, dsd/ Podiatry will continue with local wound care, no surgical intervention Cleansed left and right foot with saline solution, dressed with dry dsd, ABD and kerlix Offloading with multipodus boots. Multipodus boots are to be worn at all times in bed Wound culture; staph aureus, cornybacterium Continue IV abx per ID recommendations; Zosyn and Vancomycin No surgical intervention at this time. Will provide local wound care while in house Stable per podiatry standpoint
[2018-08-12] MEDS: EPOETIN ALFA 4,000 UNIT/ML ML Dialysis IV SCH (18:33)
[2018-08-12] MEDS: (Lantus) Insulin Glargine, Recombinant SC SCH (21:22)
--- NOTE | 2018-08-13 00:40 | CP.PCM.PN ---
Subjective - Date & Time of Evaluation Date of Evaluation: 08/12/18 Time of Evaluation: 21:00 - Subjective Subjective: Patient has no complaint of SOB, chest pain. Afebrile. Right great toe ulcer healing. On IV antibiotic and local wound care. Objective - Vital Signs/Intake and Output Vital Signs (last 24 hours): Temp Pulse Resp BP Pulse Ox 98.3 F 76 20 128/62 98 08/12/18 23:59 08/12/18 23:59 08/12/18 23:59 08/12/18 23:59 08/12/18 23:59 Intake and Output: 08/12/18 08/13/18 18:59 06:59 Intake Total 660 Balance 660 - Medications Medications: Current Medications Acetaminophen (Tylenol 325mg Tab) 650 mg PO Q6 PRN PRN Reason: Fever >100.4 F Acetaminophen (Tylenol 325mg Tab) 650 mg PO Q6 PRN PRN Reason: Pain, moderate (4-7) Amlodipine Besylate (Norvasc) 10 mg PO DAILY [facility] Last Admin: 08/12/18 10:49 Dose: Not Given [facility] ([facility] Last Admin: 08/12/18 20:30 Dose: 1,334 mg Carvedilol (Coreg) 6.25 mg PO DAILY [facility] Last Admin: 08/12/18 10:31 Dose: Not Given Docusate Sodium (Colace) 100 mg PO BID [facility] Last Admin: 08/12/18 20:29 Dose: 100 mg Epoetin Chato (Procrit) 4,000 unit IV [facility] Last Admin: 08/12/18 18:33 Dose: 4,000 unit Famotidine (Pepcid) 20 mg PO DAILY [facility] Last Admin: 08/12/18 10:49 Dose: 20 mg Glimepiride (Amaryl) 4 mg PO DAILY [facility] Last Admin: 08/12/18 10:48 Dose: 4 mg Vancomycin HCl 1,000 mg/ (Sodium Chloride) 250 mls @ 166.6 mls/hr IVPB [facility]; Protocol Last Admin: 08/12/18 20:31 Dose: 166.6 mls/hr Insulin Aspart (Novolog) 0 unit SC [facility]; Protocol Last Admin: 08/12/18 21:25 Dose: Not Given Insulin Glargine (Lantus) 40 unit SC HS [facility] Last Admin: 08/12/18 21:22 Dose: 40 u Lamotrigine (Lamictal) 25 mg PO BID [facility] Last Admin: 08/12/18 20:29 Dose: 25 mg Losartan Potassium (Cozaar) 100 mg PO DAILY [facility] Last Admin: 08/12/18 10:48 Dose: Not Given Mupirocin (Bactroban Ointment) 0 gm TOP DAILY [facility] Last Admin: 08/12/18 10:49 Dose: 1 applic Tamsulosin HCl (Flomax) 0.4 mg PO DAILY [facility] Last Admin: 08/12/18 10:48 Dose: 0.4 mg Vitamin B Complex/Vit C/Folic Acid (Nephro-Poly) 1 tab PO 0800 [facility] Last Admin: 08/12/18 08:06 Dose: 1 tab - Labs Labs: 08/09/18 09:31 08/09/18 09:31 PT 12.5 SECONDS (9.7-12.2) H 08/04/18 11:56 INR 1.1 08/04/18 11:56 APTT 28 SECONDS (21-34) 08/04/18 11:56 - Constitutional Appears: Non-toxic, Chronically Ill - Head Exam Head Exam: NORMOCEPHALIC - Eye Exam Eye Exam: Normal appearance - ENT Exam ENT Exam: Normal Exam - Neck Exam Neck Exam: Normal Inspection - Respiratory Exam Respiratory Exam: Rhonchi - Cardiovascular Exam Cardiovascular Exam: REGULAR RHYTHM, Murmur - GI/Abdominal Exam GI & Abdominal Exam: Soft, Normal Bowel Sounds - Rectal Exam Rectal Exam: Deferred - Extremities Exam Additional comments: Right great toe ulcer clean. - Back Exam Back Exam: NORMAL INSPECTION - Neurological Exam Neurological Exam: Alert, Awake, Oriented x3 - Psychiatric Exam Psychiatric exam: Anxious Assessment and Plan (1) Ischemic ulcer of heel with necrosis of muscle Status: Resolved (2) Gangrene of toe of right foot Status: Resolved (3) Right middle lobe pneumonia Status: Resolved (4) Uncontrolled diabetes mellitus Status: Chronic (5) ESRD on hemodialysis Status: Chronic
[2018-08-13] MEDS: Multivitamin Vitamin B Complex (Nephro-Vite) Tab PO SCH (08:00)
[2018-08-13] MEDS: (Novolog) Insulin Aspart, Recombinant 100 u/ml 10 ml vial SC SCH ×4 (08:30→21:55)
--- NOTE | 2018-08-13 13:42 | CP.PCM.PN ---
Subjective - Date & Time of Evaluation Date of Evaluation: 08/13/18 Time of Evaluation: 13:00 - Subjective Subjective: Podiatry Progress Note- Dr. Jenkins 78M seen and evaluated at bedside for bilateral heel deep tissue injuries and right great toe ulceration- stable. Patient is resting comfortably in bed, in NAD, and awake and alert. Patient reports that he slept well and is feeling good. Denies of pain to his lower extremity. Continues to wear multipodus boots. Denies acute overnight events. Denies nausea, fever, shortness of breath, chest pains. No other pedal complaints at this time. Objective - Vital Signs/Intake and Output Vital Signs (last 24 hours): Temp Pulse Resp BP Pulse Ox 98.7 F 79 20 153/72 H 96 08/13/18 08:00 08/13/18 08:00 08/13/18 08:00 08/13/18 08:00 08/13/18 08:00 Intake and Output: 08/13/18 08/13/18 06:59 18:59 Intake Total 300 Balance 300 - Medications Medications: Current Medications Acetaminophen (Tylenol 325mg Tab) 650 mg PO Q6 PRN PRN Reason: Fever >100.4 F Acetaminophen (Tylenol 325mg Tab) 650 mg PO Q6 PRN PRN Reason: Pain, moderate (4-7) Amlodipine Besylate (Norvasc) 10 mg PO DAILY [facility] Last Admin: 08/13/18 09:27 Dose: 10 mg Calcium Acetate (Phoslo) 1,334 mg PO BIDCC [facility] Last Admin: 08/13/18 07:59 Dose: 1,334 mg Carvedilol (Coreg) 6.25 mg PO DAILY [facility] Last Admin: 08/13/18 09:27 Dose: 6.25 mg Docusate Sodium (Colace) 100 mg PO BID [facility] Last Admin: 08/13/18 09:27 Dose: 100 mg Epoetin Chato (Procrit) 4,000 unit IV MWF [facility] Last Admin: 08/12/18 18:33 Dose: 4,000 unit Famotidine (Pepcid) 20 mg PO DAILY [facility] Last Admin: 08/13/18 09:27 Dose: 20 mg Glimepiride (Amaryl) 4 mg PO DAILY [facility] Last Admin: 08/13/18 09:27 Dose: 4 mg Vancomycin HCl 1,000 mg/ (Sodium Chloride) 250 mls @ 166.6 mls/hr IVPB MWF [facility]; Protocol Last Admin: 08/12/18 20:31 Dose: 166.6 mls/hr Insulin Aspart (Novolog) 0 unit SC ACHS [facility]; Protocol Last Admin: 08/13/18 12:07 Dose: Not Given Insulin Glargine (Lantus) 40 unit SC HS [facility] Last Admin: 08/12/18 21:22 Dose: 40 u Lamotrigine (Lamictal) 25 mg PO BID [facility] Last Admin: 08/13/18 09:44 Dose: 25 mg Losartan Potassium (Cozaar) 100 mg PO DAILY [facility] Last Admin: 08/13/18 09:27 Dose: 100 mg Mupirocin (Bactroban Ointment) 0 gm TOP DAILY [facility] Last Admin: 08/13/18 09:28 Dose: 1 applic Tamsulosin HCl (Flomax) 0.4 mg PO DAILY [facility] Last Admin: 08/13/18 09:27 Dose: 0.4 mg Vitamin B Complex/Vit C/Folic Acid (Nephro-Poly) 1 tab PO 0800 [facility] Last Admin: 08/13/18 08:00 Dose: 1 tab - Labs Labs: 08/09/18 09:31 08/09/18 09:31 PT 12.5 SECONDS (9.7-12.2) H 08/04/18 11:56 INR 1.1 08/04/18 11:56 APTT 28 SECONDS (21-34) 08/04/18 11:56 - Constitutional Appears: Well, Non-toxic, No Acute Distress - Extremities Exam Extremities Exam: absent: Calf Tenderness Additional comments: Lower extremity focused exam: Vasc: DP/PT pulses palpable 2/4 B/L. Temperature gradient warm to cool B/L. CFT < 3 sec to all digits. No pedal edema noted Derm: Dry hyperkeratotic tissue noted to entirety of distal tip of right hallux with hyperpigmentation of digit and centrally located ulceration to plantar aspect of distal phalanx. Ulcer is circular, superficial ulceration measuring approximately 1 cm in diameter x .1 to the distal tip of hallux. Wound base is 100% granular, no abscess, no odor, no streaking , no erythemano active drainage, no malodor, no purulence, no fluctuance, no alexus wound erythema. No evidence of necrosis or gangrenous changes at present. Deep tissue injuries noted to bilateral posteroplantar heels. No breaks in skin or soft tissue of heels noted B/L. Neuro: protective sensation grossly intact Ortho: no tenderness to palpation of right great toe ulceration or bilateral plantar heels at site of deep tissue injuries - Neurological Exam Neurological Exam: Alert, Awake, Oriented x3 - Psychiatric Exam Psychiatric exam: Normal Affect, Normal Mood Assessment and Plan - Assessment and Plan (Free Text) Assessment: 78 year old male patient with right great toe ulceration and bilateral heel deep tissue injuries likely secondary to pressure -stable Plan: Patient seen and evaluated at bedside Afebrile, absent leukocytosis Foot x-rays show no acute osseous findings, no evidence of osteomyelitis Arterial duplex studies show no significant arterial insufficiency to lower extremities Right distal hallux ulceration dressed with xerform, dsd, and kerlix Cleansed left and right heel with saline solution, dressed with dry dsd, ABD and kerlix Podiatry will continue with local wound care, no surgical intervention Offloading with multipodus boots. Multipodus boots are to be worn at all times in bed Wound culture; staph aureus, cornybacterium Continue IV abx per ID recommendations; Zosyn and Vancomycin No surgical intervention at this time. Will provide local wound care while in house Stable per podiatry standpoint
--- NOTE | 2018-08-13 14:56 | CP.PCM.PN ---
Subjective - Date & Time of Evaluation Date of Evaluation: 08/13/18 Time of Evaluation: 14:56 - Subjective Subjective: Nephrology Consultation Note: Assessment: Stable Rt foot cellulitis and Pneumonia Diabetic chronic Kidney Disease (E11.22) Hypertensive Chronic Kidney Disease (I12.0) End stage renal disease (N18.6) dependence on hemodialysis (Z99.2) (MWF) via AVF Anemia (D64.9), Hyperphosphatemia (E83.39), Secondary Hyperparathyroidism (E21.1), HTN (I12.0) Plan: Will plan for HD MWF schedule as ordered. Continue with Nephrovite 1 tab/day. PRBC as needed for anemia.on LESLI with dialysis as last Hb 9.7 Continue with phos binders, last phos level: 3.8 BP control with meds as ordered. Patient on RAAS ish Glycemic control, Dialysis consistent diet Further work up/management as per primary team Dose meds/antibiotics (if needed) for ESRD status. Avoid fleets enema/magnesium based laxatives. pt stable for d/c from renal perspective when planned Thanks for allowing me to participate in care of your patient. Will follow patient with you. Please call if any Qs Dr Edwardo Valenzuela Office: [phone] Chief Complaint;Rt toe infection and cough HPI: Pt is a 78 year old male with PMHx of DM, HTN, HLD, ESRD on dialysis (MWF), CAD s/p CABG, AVR, BPH and Bipolar disorder presents to ED complaining of cough x 2 weeks and redness, swelling of the right big toe and admitted for cellulitis, pneumonia. Renal consult requested for ESRD management. last HD friday. otherwise feels usual health ROS: Cardiovascular: No chest pain. Pulmonary: No shortness of breath . Gastrointestinal: denies abdominal pain No nausea. No vomiting. Genitourinary: No pain while urinating. Denies blood in urine. All other negative except as mentioned in HPI Physical Examination: General Appearance: Comfortable, in no acute respiratory distress, co-operative . Vitals reviewed and noted as below Head; Atraumatic, normocephalic ENT: no ulcers no thrush. Tongue is midline. Oropharynx: no rash or ulcers. EYES: Pupils are equal, round and reactive to light accommodation. Eye muscles and extraocular movement intact. Sclera is anicteric. Neck; supple no lymphadenopathy, no thyromegaly or bruit Lungs: Normal respiratory rate/effort. Breath sounds bilateral equal and clear Heart: Normal rate. s1s2 normal. No rub or gallop. Extremities: no edema. No varicose veins. Neurological: Patient is alert, awake and oriented to person, place and time. No focal deficit. Strength bilateral appropriate and equal Skin: Warm and dry. Normal turgor. No rash. Palpitation: Normal elasticity for age Abdomen: Abdomen is soft. Bowel sounds +. There is no abdominal tenderness, no guarding/rigidity or organomegaly Psych: normal insight and normal affect/mood MSK: no joint tenderness or swelling. Digits and nails normal, no deformity : kidney or bladder not palpable Access: AVF Labs/imaging reviewed. Past medical history, past surgical history, family history, social history, allergy reviewed and noted as below Family Hx: no hx of CKD. Non contributory Objective - Vital Signs/Intake and Output Vital Signs (last 24 hours): Temp Pulse Resp BP Pulse Ox 98.7 F 79 20 153/72 H 96 08/13/18 08:00 08/13/18 08:00 08/13/18 08:00 08/13/18 08:00 08/13/18 08:00 Intake and Output: 08/13/18 08/13/18 06:59 18:59 Intake Total 780 Balance 780 - Medications Medications: Current Medications Acetaminophen (Tylenol 325mg Tab) 650 mg PO Q6 PRN PRN Reason: Fever >100.4 F Acetaminophen (Tylenol 325mg Tab) 650 mg PO Q6 PRN PRN Reason: Pain, moderate (4-7) Amlodipine Besylate (Norvasc) 10 mg PO DAILY [facility] Last Admin: 08/13/18 09:27 Dose: 10 mg Calcium Acetate (Phoslo) 1,334 mg PO BIDCC [facility] Last Admin: 08/13/18 07:59 Dose: 1,334 mg Carvedilol (Coreg) 6.25 mg PO DAILY [facility] Last Admin: 08/13/18 09:27 Dose: 6.25 mg Docusate Sodium (Colace) 100 mg PO BID [facility] Last Admin: 08/13/18 09:27 Dose: 100 mg Epoetin Chato (Procrit) 4,000 unit IV MWF [facility] Last Admin: 08/12/18 18:33 Dose: 4,000 unit Famotidine (Pepcid) 20 mg PO DAILY [facility] Last Admin: 08/13/18 09:27 Dose: 20 mg Glimepiride (Amaryl) 4 mg PO DAILY [facility] Last Admin: 08/13/18 09:27 Dose: 4 mg Vancomycin HCl 1,000 mg/ (Sodium Chloride) 250 mls @ 166.6 mls/hr IVPB MWF [facility]; Protocol Last Admin: 08/12/18 20:31 Dose: 166.6 mls/hr Insulin Aspart (Novolog) 0 unit SC ACHS [facility]; Protocol Last Admin: 08/13/18 12:07 Dose: Not Given Insulin Glargine (Lantus) 40 unit SC HS [facility] Last Admin: 08/12/18 21:22 Dose: 40 u Lamotrigine (Lamictal) 25 mg PO BID [facility] Last Admin: 08/13/18 09:44 Dose: 25 mg Losartan Potassium (Cozaar) 100 mg PO DAILY [facility] Last Admin: 08/13/18 09:27 Dose: 100 mg Mupirocin (Bactroban Ointment) 0 gm TOP DAILY [facility] Last Admin: 08/13/18 09:28 Dose: 1 applic Tamsulosin HCl (Flomax) 0.4 mg PO DAILY [facility] Last Admin: 08/13/18 09:27 Dose: 0.4 mg Vitamin B Complex/Vit C/Folic Acid (Nephro-Poly) 1 tab PO 0800 [facility] Last Admin: 08/13/18 08:00 Dose: 1 tab - Labs Labs: 08/09/18 09:31 08/09/18 09:31 PT 12.5 SECONDS (9.7-12.2) H 08/04/18 11:56 INR 1.1 08/04/18 11:56 APTT 28 SECONDS (21-34) 08/04/18 11:56
[2018-08-13] MEDS: (Lantus) Insulin Glargine, Recombinant SC SCH (21:57)
--- NOTE | 2018-08-13 22:25 | CP.PCM.PN ---
Subjective - Date & Time of Evaluation Date of Evaluation: 08/13/18 Time of Evaluation: 11:30 - Subjective Subjective: Patient has no complaint. Ulcer of the right great toe healing. Awaiting to be discharged to sub acute rehabilitation, Objective - Vital Signs/Intake and Output Vital Signs (last 24 hours): Temp Pulse Resp BP Pulse Ox 98.2 F 68 20 129/62 99 08/13/18 18:00 08/13/18 18:00 08/13/18 18:00 08/13/18 18:00 08/13/18 18:00 Intake and Output: 08/13/18 08/14/18 18:59 06:59 Intake Total 780 Balance 780 - Medications Medications: Current Medications Acetaminophen (Tylenol 325mg Tab) 650 mg PO Q6 PRN PRN Reason: Fever >100.4 F Acetaminophen (Tylenol 325mg Tab) 650 mg PO Q6 PRN PRN Reason: Pain, moderate (4-7) Amlodipine Besylate (Norvasc) 10 mg PO DAILY [facility] Last Admin: 08/13/18 09:27 Dose: 10 [facility] Last Admin: 08/13/18 17:50 Dose: 1,334 mg Carvedilol (Coreg) 6.25 mg PO DAILY [facility] Last Admin: 08/13/18 09:27 Dose: 6.25 mg Docusate Sodium (Colace) 100 mg PO BID [facility] Last Admin: 08/13/18 17:51 Dose: 100 mg Epoetin Chato (Procrit) 4,000 unit IV [facility] Last Admin: 08/12/18 18:33 Dose: 4,000 unit Famotidine (Pepcid) 20 mg PO DAILY [facility] Last Admin: 08/13/18 09:27 Dose: 20 mg Glimepiride (Amaryl) 4 mg PO DAILY [facility] Last Admin: 08/13/18 09:27 Dose: 4 mg Vancomycin HCl 1,000 mg/ (Sodium Chloride) 250 mls @ 166.6 mls/hr IVPB [facility] [place]; Protocol Last Admin: 08/12/18 20:31 Dose: 166.6 mls/hr Insulin Aspart (Novolog) 0 unit SC [facility]; Protocol Last Admin: 08/13/18 21:55 Dose: Not Given Insulin Glargine (Lantus) 40 unit SC [facility] Last Admin: 08/13/18 21:57 Dose: 40 u Lamotrigine (Lamictal) 25 mg PO BID [facility] Last Admin: 08/13/18 17:51 Dose: 25 mg Losartan Potassium (Cozaar) 100 mg PO DAILY [facility] Last Admin: 08/13/18 09:27 Dose: 100 mg Mupirocin (Bactroban Ointment) 0 gm TOP DAILY [facility] Last Admin: 08/13/18 09:28 Dose: 1 applic Tamsulosin HCl (Flomax) 0.4 mg PO DAILY [facility] Last Admin: 08/13/18 09:27 Dose: 0.4 mg Vitamin B Complex/Vit C/Folic Acid (Nephro-Poly) 1 tab PO 0800 [facility] Last Admin: 08/13/18 08:00 Dose: 1 tab - Labs Labs: 08/09/18 09:31 08/09/18 09:31 PT 12.5 SECONDS (9.7-12.2) H 08/04/18 11:56 INR 1.1 08/04/18 11:56 APTT 28 SECONDS (21-34) 08/04/18 11:56 - Constitutional Appears: No Acute Distress, Chronically Ill - Head Exam Head Exam: NORMOCEPHALIC - Eye Exam Eye Exam: Normal appearance - ENT Exam ENT Exam: Normal Exam - Neck Exam Neck Exam: Normal Inspection - Respiratory Exam Respiratory Exam: Rhonchi - Cardiovascular Exam Cardiovascular Exam: REGULAR RHYTHM - GI/Abdominal Exam GI & Abdominal Exam: Soft, Normal Bowel Sounds - Rectal Exam Rectal Exam: Deferred - Exam Exam: NORMAL INSPECTION - Extremities Exam Additional comments: Right great toe ulcer healing well. - Back Exam Back Exam: NORMAL INSPECTION - Neurological Exam Neurological Exam: Alert, Awake, Oriented x3 - Psychiatric Exam Psychiatric exam: Anxious - Skin Skin Exam: Dry, Intact, Warm Assessment and Plan (1) Ischemic ulcer of heel with necrosis of muscle Status: Resolved (2) Gangrene of toe of right foot Status: Resolved (3) Right middle lobe pneumonia Status: Resolved (4) Uncontrolled diabetes mellitus Status: Chronic (5) ESRD on hemodialysis Status: Chronic
[2018-08-14] MEDS: (Novolog) Insulin Aspart, Recombinant 100 u/ml 10 ml vial SC SCH ×4 (08:58→21:16)
[2018-08-14] MEDS: Multivitamin Vitamin B Complex (Nephro-Vite) Tab PO SCH (09:02)
--- NOTE | 2018-08-14 10:54 | CP.PCM.PN ---
Subjective - Date & Time of Evaluation Date of Evaluation: 08/14/18 Time of Evaluation: 13:00 - Subjective Subjective: Podiatry Progress NOte- Dr. Jenkins 78M seen and evaluated at bedside for bilateral heel deep tissue injuries and right great toe ulceration- stable. Patient is seen with attending Dr. Jenkins. Patient reports that he is doing well. Denies of pain to the lower extremity. Denies nausea, fever, shortness of breath, chest pains or chills. Denies acute overnight events. Objective - Vital Signs/Intake and Output Vital Signs (last 24 hours): Temp Pulse Resp BP Pulse Ox 97.9 F 69 20 137/65 99 08/14/18 07:32 08/14/18 07:32 08/14/18 07:32 08/14/18 07:32 08/14/18 07:32 Intake and Output: 08/14/18 08/14/18 06:59 18:59 Intake Total 350 300 Balance 350 300 - Medications Medications: Current Medications Acetaminophen (Tylenol 325mg Tab) 650 mg PO Q6 PRN PRN Reason: Fever >100.4 F Acetaminophen (Tylenol 325mg Tab) 650 mg PO Q6 PRN PRN Reason: Pain, moderate (4-7) Amlodipine Besylate (Norvasc) 10 mg PO DAILY [facility] Last Admin: 08/14/18 10:05 Dose: Not Given [facility] ([facility]) [facility] Last Admin: 08/14/18 09:02 Dose: 1,334 mg Carvedilol (Coreg) 6.25 mg PO DAILY [facility] Last Admin: 08/14/18 10:04 Dose: Not Given Docusate Sodium (Colace) 100 mg PO BID [facility] Last Admin: 08/14/18 09:02 Dose: 100 mg Epoetin Chato (Procrit) 4,000 unit IV [facility] Last Admin: 08/12/18 18:33 Dose: 4,000 unit Famotidine (Pepcid) 20 mg PO DAILY [facility] Last Admin: 08/14/18 09:02 Dose: 20 mg Glimepiride (Amaryl) 4 mg PO DAILY [facility] Last Admin: 08/14/18 09:02 Dose: 4 mg Vancomycin HCl 1,000 mg/ (Sodium Chloride) 250 mls @ 166.6 mls/hr IVPB [facility]; Protocol Last Admin: 08/14/18 09:09 Dose: 166.6 mls/hr Insulin Aspart (Novolog) 0 unit SC ACHS [facility]; Protocol Last Admin: 08/14/18 08:58 Dose: 2 units Insulin Glargine (Lantus) 40 unit SC HS [facility] Last Admin: 08/13/18 21:57 Dose: 40 u Lamotrigine (Lamictal) 25 mg PO BID [facility] Last Admin: 08/14/18 09:00 Dose: 25 mg Losartan Potassium (Cozaar) 100 mg PO DAILY [facility] Last Admin: 08/14/18 10:04 Dose: Not Given Mupirocin (Bactroban Ointment) 0 gm TOP DAILY [facility] Last Admin: 08/13/18 09:28 Dose: 1 applic Tamsulosin HCl (Flomax) 0.4 mg PO DAILY [facility] Last Admin: 08/14/18 09:52 Dose: 0.4 mg Vitamin B Complex/Vit C/Folic Acid (Nephro-Poly) 1 tab PO 0800 [facility] Last Admin: 08/14/18 09:02 Dose: 1 tab - Labs Labs: 08/09/18 09:31 08/09/18 09:31 PT 12.5 SECONDS (9.7-12.2) H 08/04/18 11:56 INR 1.1 08/04/18 11:56 APTT 28 SECONDS (21-34) 08/04/18 11:56 - Constitutional Appears: Well, Non-toxic, No Acute Distress - Extremities Exam Extremities Exam: absent: Calf Tenderness Additional comments: Lower extremity focused exam: Vasc: DP/PT pulses palpable 2/4 B/L. Temperature gradient warm to cool B/L. CFT < 3 sec to all digits. No pedal edema noted Derm: Dry hyperkeratotic tissue noted to entirety of distal tip of right hallux with hyperpigmentation of digit and centrally located ulceration to plantar aspect of distal phalanx. Ulcer is circular, superficial ulceration at the distal hallux has epithelized over and completely healed. No abscess, no odor, no streaking , no erythemano active drainage, no malodor, no purulence, no fluctuance, no alexus wound erythema. No evidence of necrosis or gangrenous changes at present. Deep tissue injuries noted to bilateral posteroplantar heels. No breaks in skin or soft tissue of heels noted B/L. Neuro: protective sensation grossly intact Ortho: no tenderness to palpation of right great toe or bilateral plantar heels at site of deep tissue injuries - Neurological Exam Neurological Exam: Alert, Awake, Oriented x3 - Psychiatric Exam Psychiatric exam: Normal Affect, Normal Mood Assessment and Plan - Assessment and Plan (Free Text) Assessment: 78 year old male patient with healed right great toe ulceration and bilateral heel deep tissue injuries likely secondary to pressure -stable Plan: Patient seen and evaluated at bedside Afebrile, absent leukocytosis Foot x-rays show no acute osseous findings, no evidence of osteomyelitis Arterial duplex studies show no significant arterial insufficiency to lower extremities Right distal hallux ulceration completely healed with epithelized layer. Cleansed with saline solution, pat dry and applied bactroban. Can air out Cleansed left and right heel with saline solution, dressed with Optifoam Podiatry will continue with local wound care, no surgical intervention Offloading with multipodus boots. Multipodus boots are to be worn at all times in bed Wound culture; methicillin resistant staph aureus, cornybacterium Continue IV abx per ID recommendations No surgical intervention at this time. Will provide local wound care while in house Stable per podiatry standpoint Upon discharge, patient to follow up with Dr. Jenkins in clinic within 1 week
--- NOTE | 2018-08-14 14:04 | CP.PCM.PN ---
Subjective - Date & Time of Evaluation Date of Evaluation: 08/14/18 Time of Evaluation: 14:04 - Subjective Subjective: Nephrology Consultation Note: Assessment: Stable Rt foot cellulitis and Pneumonia Diabetic chronic Kidney Disease (E11.22) Hypertensive Chronic Kidney Disease (I12.0) End stage renal disease (N18.6) dependence on hemodialysis (Z99.2) (MWF) via AVF Anemia (D64.9), Hyperphosphatemia (E83.39), Secondary Hyperparathyroidism (E21.1), HTN (I12.0) Plan: Will plan for HD MWF schedule as ordered. Continue with Nephrovite 1 tab/day. PRBC as needed for anemia.on LESLI with dialysis as last Hb 9.7 Continue with phos binders, last phos level: 3.8 BP control with meds as ordered. Patient on RAAS ish Glycemic control, Dialysis consistent diet Further work up/management as per primary team Dose meds/antibiotics (if needed) for ESRD status. Avoid fleets enema/magnesium based laxatives. pt stable for d/c from renal perspective when planned. awaiting [facility] Thanks for allowing me to participate in care of your patient. Will follow raghu ent with you. Please call if any Qs Dr Edwardo Valenzuela Office: [phone] Chief Complaint;Rt toe infection and cough HPI: Pt is a 78 year old male with PMHx of DM, HTN, HLD, ESRD on dialysis (MWF), CAD s/p CABG, AVR, BPH and Bipolar disorder presents to ED complaining of cough x 2 weeks and redness, swelling of the right big toe and admitted for cellulitis, pneumonia. Renal consult requested for ESRD management. last HD friday. otherwise feels usual health ROS: Cardiovascular: No chest pain. Pulmonary: No shortness of breath . Gastrointestinal: denies abdominal pain No nausea. No vomiting. Genitourinary: No pain while urinating. Denies blood in urine. All other negative except as mentioned in HPI Physical Examination: General Appearance: Comfortable, in no acute respiratory distress, co-operative . Vitals reviewed and noted as below Head; Atraumatic, normocephalic ENT: no ulcers no thrush. Tongue is midline. Oropharynx: no rash or ulcers. EYES: Pupils are equal, round and reactive to light accommodation. Eye muscles and extraocular movement intact. Sclera is anicteric. Neck; supple no lymphadenopathy, no thyromegaly or bruit Lungs: Normal respiratory rate/effort. Breath sounds bilateral equal and clear Heart: Normal rate. s1s2 normal. No rub or gallop. Extremities: no edema. No varicose veins. Neurological: Patient is alert, awake and oriented to person, place and time. No focal deficit. Strength bilateral appropriate and equal Skin: Warm and dry. Normal turgor. No rash. Palpitation: Normal elasticity for age Abdomen: Abdomen is soft. Bowel sounds +. There is no abdominal tenderness, no guarding/rigidity or organomegaly Psych: normal insight and normal affect/mood MSK: no joint tenderness or swelling. Digits and nails normal, no deformity : kidney or bladder not palpable Access: AVF Labs/imaging reviewed. Past medical history, past surgical history, family history, social history, allergy reviewed and noted as below Family Hx: no hx of CKD. Non contributory Objective - Vital Signs/Intake and Output Vital Signs (last 24 hours): Temp Pulse Resp BP Pulse Ox 97.9 F 69 20 137/65 99 08/14/18 07:32 08/14/18 07:32 08/14/18 07:32 08/14/18 07:32 08/14/18 07:32 Intake and Output: 08/14/18 08/14/18 06:59 18:59 Intake Total 350 300 Balance 350 300 - Medications Medications: Current Medications Acetaminophen (Tylenol 325mg Tab) 650 mg PO Q6 PRN PRN Reason: Fever >100.4 F Acetaminophen (Tylenol 325mg Tab) 650 mg PO Q6 PRN PRN Reason: Pain, moderate (4-7) Amlodipine Besylate (Norvasc) 10 mg PO DAILY [facility] Last Admin: 08/14/18 10:05 Dose: Not Given [facility]cium [facility]et[facility] ([facility]) [facility] Last Admin: 08/14/18 09:02 Dose: 1,334 mg Carvedilol (Coreg) 6.25 mg PO DAILY [facility] Last Admin: 08/14/18 10:04 Dose: Not Given Docusate Sodium (Colace) 100 mg PO BID [facility] Last Admin: 08/14/18 09:02 Dose: 100 mg Epoetin Chato (Procrit) 4,000 unit IV [facility] [place] [place] Last Admin: 08/12/18 18:33 Dose: 4,000 unit Famotidine (Pepcid) 20 mg PO DAILY [facility] Last Admin: 08/14/18 09:02 Dose: 20 mg Glimepiride (Amaryl) 4 mg PO DAILY [facility] Last Admin: 08/14/18 09:02 Dose: 4 mg Vancomycin HCl 1,000 mg/ (Sodium Chloride) 250 mls @ 166.6 mls/hr IVPB MWF [facility]; Protocol Last Admin: 08/14/18 09:09 Dose: 166.6 mls/hr Insulin Aspart (Novolog) 0 unit SC ACHS [facility]; Protocol Last Admin: 08/14/18 12:04 Dose: 2 units Insulin Glargine (Lantus) 40 unit SC HS [facility] Last Admin: 08/13/18 21:57 Dose: 40 u Lamotrigine (Lamictal) 25 mg PO BID [facility] Last Admin: 08/14/18 09:00 Dose: 25 mg Losartan Potassium (Cozaar) 100 mg PO DAILY [facility] Last Admin: 08/14/18 10:04 Dose: Not Given Mupirocin (Bactroban Ointment) 0 gm TOP DAILY [facility] Last Admin: 08/14/18 11:45 Dose: Not Given Tamsulosin HCl (Flomax) 0.4 mg PO DAILY [facility] Last Admin: 08/14/18 09:52 Dose: 0.4 mg Vitamin B Complex/Vit C/Folic Acid (Nephro-Poly) 1 tab PO 0800 [facility] Last Admin: 08/14/18 09:02 Dose: 1 tab - Labs Labs: 08/09/18 09:31 08/09/18 09:31 PT 12.5 SECONDS (9.7-12.2) H 08/04/18 11:56 INR 1.1 08/04/18 11:56 APTT 28 SECONDS (21-34) 08/04/18 11:56
[2018-08-14] MEDS: EPOETIN ALFA 4,000 UNIT/ML ML Dialysis IV SCH (14:37)
--- NOTE | 2018-08-14 19:19 | CP.PCM.PN ---
Subjective - Date & Time of Evaluation Date of Evaluation: 08/14/18 Time of Evaluation: 07:00 - Subjective Subjective: awake alert wounds inspected afebrile nad Objective - Vital Signs/Intake and Output Vital Signs (last 24 hours): Temp Pulse Resp BP Pulse Ox 97.8 F 74 16 98/46 L 98 08/14/18 16:30 08/14/18 16:30 08/14/18 16:30 08/14/18 16:30 08/14/18 16:30 Intake and Output: 08/14/18 08/15/18 18:59 06:59 Intake Total 1050 Balance 1050 - Medications Medications: Current Medications Acetaminophen (Tylenol 325mg Tab) 650 mg PO Q6 PRN PRN Reason: Fever >100.4 F Acetaminophen (Tylenol 325mg Tab) 650 mg PO Q6 PRN PRN Reason: Pain, moderate (4-7) Amlodipine Besylate (Norvasc) 10 mg PO DAILY [facility] Last Admin: 08/14/18 10:05 Dose: Not Given [facility] ([facility] Last Admin: 08/14/18 17:09 Dose: 1,334 mg Carvedilol (Coreg) 6.25 mg PO DAILY [facility] Last Admin: 08/14/18 10:04 Dose: Not Given Docusate Sodium (Colace) 100 mg PO BID [facility] Last Admin: 08/14/18 17:08 Dose: 100 mg Epoetin Chato (Procrit) 4,000 unit IV [facility] Last Admin: 08/14/18 14:37 Dose: 4,000 unit Famotidine (Pepcid) 20 mg PO DAILY [facility] Last Admin: 08/14/18 09:02 Dose: 20 mg Glimepiride (Amaryl) 4 mg PO DAILY [facility] Last Admin: 08/14/18 09:02 Dose: 4 mg Vancomycin HCl 1,000 mg/ (Sodium Chloride) 250 mls @ 166.6 mls/hr IVPB [facility]; Protocol Last Admin: 08/14/18 09:09 Dose: 166.6 mls/hr Insulin Aspart (Novolog) 0 unit SC ACHS [facility]; Protocol Last Admin: 08/14/18 17:10 Dose: 2 units Insulin Glargine (Lantus) 40 unit SC HS [facility] Last Admin: 08/13/18 21:57 Dose: 40 u Lamotrigine (Lamictal) 25 mg PO BID [facility] Last Admin: 08/14/18 17:09 Dose: 25 mg Losartan Potassium (Cozaar) 100 mg PO DAILY [facility] Last Admin: 08/14/18 10:04 Dose: Not Given Mupirocin (Bactroban Ointment) 0 gm TOP DAILY [facility] Last Admin: 08/14/18 11:45 Dose: Not Given Tamsulosin HCl (Flomax) 0.4 mg PO DAILY [facility] Last Admin: 08/14/18 09:52 Dose: 0.4 mg Vitamin B Complex/Vit C/Folic Acid (Nephro-Poly) 1 tab PO 0800 [facility] Last Admin: 08/14/18 09:02 Dose: 1 tab - Labs Labs: 08/09/18 09:31 08/09/18 09:31 PT 12.5 SECONDS (9.7-12.2) H 08/04/18 11:56 INR 1.1 08/04/18 11:56 APTT 28 SECONDS (21-34) 08/04/18 11:56 - Constitutional Appears: Non-toxic, Chronically Ill - Head Exam Head Exam: NORMOCEPHALIC - Eye Exam Eye Exam: absent: Scleral icterus - ENT Exam ENT Exam: Mucous Membranes Dry - Neck Exam Neck Exam: absent: Lymphadenopathy - Respiratory Exam Respiratory Exam: Decreased Breath Sounds - Cardiovascular Exam Cardiovascular Exam: REGULAR RHYTHM - GI/Abdominal Exam GI & Abdominal Exam: Distended, Soft - Rectal Exam Rectal Exam: Deferred - Exam Exam: NORMAL INSPECTION - Extremities Exam Extremities Exam: Pedal Edema. absent: Calf Tenderness, Normal Inspection, Tenderness - Back Exam Back Exam: absent: CVA tenderness (L), CVA tenderness (R) - Neurological Exam Neurological Exam: Alert, Awake, CN II-XII Intact, Oriented x3 - Psychiatric Exam Psychiatric exam: Depressed Assessment and Plan (1) Gangrene of toe of right foot Status: Resolved (2) Infected ulcer of skin Status: Acute (3) Ischemic ulcer of heel with necrosis of muscle Status: Resolved (4) Pneumonia Status: Acute (5) Right middle lobe pneumonia Status: Resolved (6) ESRD on hemodialysis Status: Chronic (7) Uncontrolled diabetes mellitus Status: Chronic (8) MRSA (methicillin resistant staph aureus) culture positive Status: Acute - Assessment and Plan (Free Text) Assessment: cont iv rx and wound care podiatry follow up Dr Bradford
[2018-08-14] MEDS: (Lantus) Insulin Glargine, Recombinant SC SCH (21:15)
--- NOTE | 2018-08-14 23:26 | CP.PCM.PN ---
Subjective - Date & Time of Evaluation Date of Evaluation: 08/14/18 Time of Evaluation: 20:00 - Subjective Subjective: Patient has no complaint. Afebrile. Right great toe ulcer clean. For subacute rehab . Objective - Vital Signs/Intake and Output Vital Signs (last 24 hours): Temp Pulse Resp BP Pulse Ox 97.8 F 74 16 98/46 L 98 08/14/18 16:30 08/14/18 16:30 08/14/18 16:30 08/14/18 16:30 08/14/18 16:30 Intake and Output: 08/14/18 08/15/18 18:59 06:59 Intake Total 1050 Balance 1050 - Medications Medications: Current Medications Acetaminophen (Tylenol 325mg Tab) 650 mg PO Q6 PRN PRN Reason: Fever >100.4 F Acetaminophen (Tylenol 325mg Tab) 650 mg PO Q6 PRN PRN Reason: Pain, moderate (4-7) Amlodipine Besylate (Norvasc) 10 mg PO DAILY [facility] Last Admin: 08/14/18 10:05 Dose: Not Given Calcium Acetate ([facility]oslo) [facility] Last Admin: 08/14/18 17:09 Dose: 1,334 mg Carvedilol (Coreg) 6.25 mg PO DAILY [facility] Last Admin: 08/14/18 10:04 Dose: Not Given Docusate Sodium (Colace) 100 mg PO BID [facility] Last Admin: 08/14/18 17:08 Dose: 100 mg Epoetin Chato (Procrit) 4,000 unit IV [facility] [place] Last Admin: 08/14/18 14:37 Dose: 4,000 unit Famotidine (Pepcid) 20 mg PO DAILY [facility] Last Admin: 08/14/18 09:02 Dose: 20 mg Glimepiride (Amaryl) 4 mg PO DAILY [facility] Last Admin: 08/14/18 09:02 Dose: 4 mg Vancomycin HCl 1,000 mg/ (Sodium Chloride) 250 mls @ 166.6 mls/hr IVPB [facility] [place]; Protocol Last Admin: 08/14/18 09:09 Dose: 166.6 mls/hr Insulin Aspart (Novolog) 0 unit SC [facility]; Protocol Last Admin: 08/14/18 21:16 Dose: Not Given Insulin Glargine (Lantus) 40 unit SC HS [facility] Last Admin: 08/14/18 21:15 Dose: 40 u Lamotrigine (Lamictal) 25 mg PO BID [facility] Last Admin: 08/14/18 17:09 Dose: 25 mg Losartan Potassium (Cozaar) 100 mg PO DAILY [facility] Last Admin: 08/14/18 10:04 Dose: Not Given Mupirocin (Bactroban Ointment) 0 gm TOP DAILY [facility] Last Admin: 08/14/18 11:45 Dose: Not Given Tamsulosin HCl (Flomax) 0.4 mg PO DAILY [facility] Last Admin: 08/14/18 09:52 Dose: 0.4 mg Vitamin B Complex/Vit C/Folic Acid (Nephro-Poly) 1 tab PO 0800 [facility] Last Admin: 08/14/18 09:02 Dose: 1 tab - Labs Labs: 08/09/18 09:31 08/09/18 09:31 PT 12.5 SECONDS (9.7-12.2) H 08/04/18 11:56 INR 1.1 08/04/18 11:56 APTT 28 SECONDS (21-34) 08/04/18 11:56 - Constitutional Appears: No Acute Distress, Chronically Ill - Head Exam Head Exam: NORMOCEPHALIC - Eye Exam Eye Exam: Normal appearance - ENT Exam ENT Exam: Normal Exam - Neck Exam Neck Exam: Normal Inspection - Respiratory Exam Respiratory Exam: Rhonchi - Cardiovascular Exam Cardiovascular Exam: REGULAR RHYTHM - GI/Abdominal Exam GI & Abdominal Exam: Soft, Normal Bowel Sounds - Rectal Exam Rectal Exam: Deferred - Exam Exam: NORMAL INSPECTION - Extremities Exam Additional comments: right great toe ulcer healing. - Back Exam Back Exam: NORMAL INSPECTION - Neurological Exam Neurological Exam: Alert, Awake, Oriented x3 - Psychiatric Exam Psychiatric exam: Anxious Assessment and Plan (1) Ischemic ulcer of heel with necrosis of muscle Status: Resolved (2) Gangrene of toe of right foot Status: Resolved (3) Right middle lobe pneumonia Status: Resolved (4) Uncontrolled diabetes mellitus Status: Chronic (5) ESRD on hemodialysis Status: Chronic
[2018-08-15] MEDS: (Novolog) Insulin Aspart, Recombinant 100 u/ml 10 ml vial SC SCH ×4 (07:52→22:09)
[2018-08-15] MEDS: Multivitamin Vitamin B Complex (Nephro-Vite) Tab PO SCH (08:01)
--- NOTE | 2018-08-15 18:07 | CP.PCM.PN ---
Subjective - Date & Time of Evaluation Date of Evaluation: 08/15/18 Time of Evaluation: 18:07 - Subjective Subjective: Nephrology Consultation Note: Assessment: Stable Rt foot cellulitis and Pneumonia Diabetic chronic Kidney Disease (E11.22) Hypertensive Chronic Kidney Disease (I12.0) End stage renal disease (N18.6) dependence on hemodialysis (Z99.2) (MWF) via AVF Anemia (D64.9), Hyperphosphatemia (E83.39), Secondary Hyperparathyroidism (E21.1), HTN (I12.0) Plan: Will plan for HD MWF schedule as ordered. Continue with Nephrovite 1 tab/day. PRBC as needed for anemia.on LESLI with dialysis as last Hb 9.7 Continue with phos binders, last phos level: 3.8 BP control with meds as ordered. Patient on RAAS ish Glycemic control, Dialysis consistent diet Further work up/management as per primary team Dose meds/antibiotics (if needed) for ESRD status. Avoid fleets enema/magnesium based laxatives. pt stable for d/c from renal perspective when planned. awaiting [facility] Thanks for allowing me to participate in care of your patient. Will follow raghu ent with you. Please call if any Qs Dr Edwardo Valenzuela Office: [phone] Chief Complaint;Rt toe infection and cough HPI: Pt is a 78 year old male with PMHx of DM, HTN, HLD, ESRD on dialysis (MWF), CAD s/p CABG, AVR, BPH and Bipolar disorder presents to ED complaining of cough x 2 weeks and redness, swelling of the right big toe and admitted for cellulitis, pneumonia. Renal consult requested for ESRD management. last HD friday. otherwise feels usual health ROS: Cardiovascular: No chest pain. Pulmonary: No shortness of breath . Gastrointestinal: denies abdominal pain No nausea. No vomiting. Genitourinary: No pain while urinating. Denies blood in urine. All other negative except as mentioned in HPI Physical Examination: General Appearance: Comfortable, in no acute respiratory distress, co-operative . Vitals reviewed and noted as below Head; Atraumatic, normocephalic ENT: no ulcers no thrush. Tongue is midline. Oropharynx: no rash or ulcers. EYES: Pupils are equal, round and reactive to light accommodation. Eye muscles and extraocular movement intact. Sclera is anicteric. Neck; supple no lymphadenopathy, no thyromegaly or bruit Lungs: Normal respiratory rate/effort. Breath sounds bilateral equal and clear Heart: Normal rate. s1s2 normal. No rub or gallop. Extremities: no edema. No varicose veins. Neurological: Patient is alert, awake and oriented to person, place and time. No focal deficit. Strength bilateral appropriate and equal Skin: Warm and dry. Normal turgor. No rash. Palpitation: Normal elasticity for age Abdomen: Abdomen is soft. Bowel sounds +. There is no abdominal tenderness, no guarding/rigidity or organomegaly Psych: normal insight and normal affect/mood MSK: no joint tenderness or swelling. Digits and nails normal, no deformity : kidney or bladder not palpable Access: AVF Labs/imaging reviewed. Past medical history, past surgical history, family history, social history, allergy reviewed and noted as below Family Hx: no hx of CKD. Non contributory Objective - Vital Signs/Intake and Output Vital Signs (last 24 hours): Temp Pulse Resp BP Pulse Ox 97.7 F 76 20 133/62 97 08/15/18 08:00 08/15/18 08:00 08/15/18 08:00 08/15/18 08:00 08/15/18 08:00 Intake and Output: 08/15/18 08/15/18 06:59 18:59 Intake Total 780 Balance 780 - Medications Medications: Current Medications Acetaminophen (Tylenol 325mg Tab) 650 mg PO Q6 PRN PRN Reason: Fever >100.4 F Acetaminophen (Tylenol 325mg Tab) 650 mg PO Q6 PRN PRN Reason: Pain, moderate (4-7) Amlodipine Besylate (Norvasc) 10 mg PO DAILY [facility] Last Admin: 08/15/18 09:44 Dose: 10 mg Calcium Acetate (Phoslo) 1,334 mg PO BIDCC [facility] Last Admin: 08/15/18 17:14 Dose: 1,334 mg Carvedilol (Coreg) 6.25 mg PO DAILY [facility] Last Admin: 08/15/18 09:44 Dose: 6.25 mg Docusate Sodium (Colace) 100 mg PO BID [facility] Last Admin: 08/15/18 17:14 Dose: 100 mg Epoetin Chato (Procrit) 4,000 unit IV [facility] [place] Last Admin: 08/14/18 14:37 Dose: 4,000 unit Famotidine (Pepcid) 20 mg PO DAILY [facility] Last Admin: 08/15/18 09:44 Dose: 20 mg Glimepiride (Amaryl) 4 mg PO DAILY [facility] Last Admin: 08/15/18 09:44 Dose: 4 mg Vancomycin HCl 1,000 mg/ (Sodium Chloride) 250 mls @ 166.6 mls/hr IVPB F [facility]; Protocol Last Admin: 08/14/18 09:09 Dose: 166.6 mls/hr Insulin Aspart (Novolog) 0 unit SC ACHS [facility]; Protocol Last Admin: 08/15/18 17:13 Dose: 2 units Insulin Glargine (Lantus) 40 unit SC HS [facility] Last Admin: 08/14/18 21:15 Dose: 40 u Lamotrigine (Lamictal) 25 mg PO BID [facility] Last Admin: 08/15/18 17:14 Dose: 25 mg Losartan Potassium (Cozaar) 100 mg PO DAILY [facility] Last Admin: 08/15/18 09:45 Dose: 100 mg Mupirocin (Bactroban Ointment) 0 gm TOP DAILY [facility] Last Admin: 08/15/18 09:44 Dose: Not Given Tamsulosin HCl (Flomax) 0.4 mg PO DAILY [facility] Last Admin: 08/15/18 09:44 Dose: 0.4 mg Vitamin B Complex/Vit C/Folic Acid (Nephro-Poly) 1 tab PO 0800 [facility] Last Admin: 08/15/18 08:01 Dose: 1 tab - Labs Labs: 08/09/18 09:31 08/09/18 09:31 PT 12.5 SECONDS (9.7-12.2) H 08/04/18 11:56 INR 1.1 08/04/18 11:56 APTT 28 SECONDS (21-34) 08/04/18 11:56
[2018-08-15] MEDS: (Lantus) Insulin Glargine, Recombinant SC SCH (22:09)
--- NOTE | 2018-08-15 23:48 | CP.PCM.PN ---
Subjective - Date & Time of Evaluation Date of Evaluation: 08/15/18 Time of Evaluation: 18:00 - Subjective Subjective: Patient has no complaint. Right great toe ulcer healed. Awaiting transfer to subacute rehabilitation. Objective - Vital Signs/Intake and Output Vital Signs (last 24 hours): Temp Pulse Resp BP Pulse Ox 97.6 F 69 20 113/52 L 100 08/15/18 19:04 08/15/18 19:04 08/15/18 19:04 08/15/18 19:04 08/15/18 19:04 Intake and Output: 08/15/18 08/16/18 18:59 06:59 Intake Total 780 600 Balance 780 600 - Medications Medications: Current Medications Acetaminophen (Tylenol 325mg Tab) 650 mg PO Q6 PRN PRN Reason: Fever >100.4 F Acetaminophen (Tylenol 325mg Tab) 650 mg PO Q6 PRN PRN Reason: Pain, moderate (4-7) Amlodipine Besylate (Norvasc) 10 mg PO DAILY [facility] Last Admin: 08/15/18 09:44 Dose: 10 mg [facility] Last Admin: 08/15/18 17:14 Dose: 1,334 mg Carvedilol (Coreg) 6.25 mg PO DAILY [facility] Last Admin: 08/15/18 09:44 Dose: 6.25 mg Docusate Sodium (Colace) 100 mg PO BID [facility] Last Admin: 08/15/18 17:14 Dose: 100 mg Epoetin Chato (Procrit) 4,000 unit IV [facility] [place] Last Admin: 08/14/18 14:37 Dose: 4,000 unit Famotidine (Pepcid) 20 mg PO DAILY [facility] Last Admin: 08/15/18 09:44 Dose: 20 mg Glimepiride (Amaryl) 4 mg PO DAILY [facility] Last Admin: 08/15/18 09:44 Dose: 4 mg Vancomycin HCl 1,000 mg/ (Sodium Chloride) 250 mls @ 166.6 mls/hr IVPB [facility] [place]; Protocol Last Admin: 08/14/18 09:09 Dose: 166.6 mls/hr Insulin Aspart (Novolog) 0 unit SC [facility]; Protocol Last Admin: 08/15/18 22:09 Dose: Not Given Insulin Glargine (Lantus) 40 unit SC [facility] Last Admin: 08/15/18 22:09 Dose: 40 u Lamotrigine (Lamictal) 25 mg PO BID [facility] Last Admin: 08/15/18 17:14 Dose: 25 mg Losartan Potassium (Cozaar) 100 mg PO DAILY [facility] Last Admin: 08/15/18 09:45 Dose: 100 mg Mupirocin (Bactroban Ointment) 0 gm TOP DAILY [facility] Last Admin: 08/15/18 09:44 Dose: Not Given Tamsulosin HCl (Flomax) 0.4 mg PO DAILY [facility] Last Admin: 08/15/18 09:44 Dose: 0.4 mg Vitamin B Complex/Vit C/Folic Acid (Nephro-Poly) 1 tab PO 0800 [facility] Last Admin: 08/15/18 08:01 Dose: 1 tab - Labs Labs: 08/09/18 09:31 08/09/18 09:31 PT 12.5 SECONDS (9.7-12.2) H 08/04/18 11:56 INR 1.1 08/04/18 11:56 APTT 28 SECONDS (21-34) 08/04/18 11:56 - Constitutional Appears: No Acute Distress, Chronically Ill - Head Exam Head Exam: NORMOCEPHALIC - Eye Exam Eye Exam: Normal appearance Pupil Exam: NORMAL ACCOMODATION - ENT Exam ENT Exam: Normal Exam - Neck Exam Neck Exam: Normal Inspection - Respiratory Exam Respiratory Exam: Rhonchi - Cardiovascular Exam Cardiovascular Exam: REGULAR RHYTHM - GI/Abdominal Exam GI & Abdominal Exam: Soft, Normal Bowel Sounds - Rectal Exam Rectal Exam: Deferred - Exam Exam: NORMAL INSPECTION - Extremities Exam Extremities Exam: Full ROM - Back Exam Back Exam: NORMAL INSPECTION - Neurological Exam Neurological Exam: Alert, Awake, Oriented x3 - Psychiatric Exam Psychiatric exam: Anxious - Skin Skin Exam: Intact Assessment and Plan (1) Ischemic ulcer of heel with necrosis of muscle Status: Resolved (2) Gangrene of toe of right foot Status: Resolved (3) Right middle lobe pneumonia Status: Resolved (4) Uncontrolled diabetes mellitus Status: Chronic (5) ESRD on hemodialysis Status: Chronic
[2018-08-16 07:31] LABS: RBC 3.5 Mil/uL (4.40-5.90)
[2018-08-16 07:44] LABS: BASO # 0.1 K/uL (0.0-0.2); BASO % 1.5 % (0.0-2.0); EOS # 0.3 K/uL (0.0-0.7); EOS % 3.2 % (0.0-4.0); HEMOGLOBIN 10.3 g/dL (12.0-18.0); LYMPH # 2.1 K/uL (1.0-4.3); LYMPH % 22.1 % (20.0-40.0); MEAN CORPUSCULAR HEMOGLOBIN 29.4 pg (27.0-31.0); MEAN CORPUSCULAR HGB CONC 33.8 g/dL (33.0-37.0); MONO % 10.1 % (0.0-10.0); NEUT % 63.1 % (50.0-75.0); RED CELL DISTRIBUTION WIDTH 15.9 % (11.5-14.5); WHITE BLOOD COUNT 9.5 K/uL (4.8-10.8)
[2018-08-16] MEDS: Multivitamin Vitamin B Complex (Nephro-Vite) Tab PO SCH (07:55)
[2018-08-16] MEDS: (Novolog) Insulin Aspart, Recombinant 100 u/ml 10 ml vial SC SCH ×4 (07:55→21:57)
--- NOTE | 2018-08-16 13:02 | CP.PCM.PN ---
Subjective - Date & Time of Evaluation Date of Evaluation: 08/16/18 Time of Evaluation: 13:02 - Subjective Subjective: Nephrology Consultation Note: Assessment: Stable Rt foot cellulitis and Pneumonia Diabetic chronic Kidney Disease (E11.22) Hypertensive Chronic Kidney Disease (I12.0) End stage renal disease (N18.6) dependence on hemodialysis (Z99.2) (MWF) via AVF Anemia (D64.9), Hyperphosphatemia (E83.39), Secondary Hyperparathyroidism (E21.1), HTN (I12.0) Plan: Will plan for HD MWF schedule as ordered. Continue with Nephrovite 1 tab/day. PRBC as needed for anemia.on LESLI with dialysis as last Hb 10.3 Continue with phos binders, last phos level: 3.8 BP control with meds as ordered. Patient on RAAS ish Glycemic control, Dialysis consistent diet Further work up/management as per primary team Dose meds/antibiotics (if needed) for ESRD status. Avoid fleets enema/magnesium based laxatives. pt stable for d/c from renal perspective when planned. awaiting [facility] Thanks for allowing me to participate in care of your patient. Will follow pat ient with you. Please call if any Qs Dr Edwardo Valenzuela Office: [phone] Chief Complaint;Rt toe infection and cough HPI: Pt is a 78 year old male with PMHx of DM, HTN, HLD, ESRD on dialysis (MWF), CAD s/p CABG, AVR, BPH and Bipolar disorder presents to ED complaining of cough x 2 weeks and redness, swelling of the right big toe and admitted for cellulitis, pneumonia. Renal consult requested for ESRD management. last HD friday. otherwise feels usual health ROS: Cardiovascular: No chest pain. Pulmonary: No shortness of breath . Gastrointestinal: denies abdominal pain No nausea. No vomiting. Genitourinary: No pain while urinating. Denies blood in urine. All other negative except as mentioned in HPI Physical Examination: General Appearance: Comfortable, in no acute respiratory distress, co-operative . Vitals reviewed and noted as below Head; Atraumatic, normocephalic ENT: no ulcers no thrush. Tongue is midline. Oropharynx: no rash or ulcers. EYES: Pupils are equal, round and reactive to light accommodation. Eye muscles and extraocular movement intact. Sclera is anicteric. Neck; supple no lymphadenopathy, no thyromegaly or bruit Lungs: Normal respiratory rate/effort. Breath sounds bilateral equal and clear Heart: Normal rate. s1s2 normal. No rub or gallop. Extremities: no edema. No varicose veins. Neurological: Patient is alert, awake and oriented to person, place and time. No focal deficit. Strength bilateral appropriate and equal Skin: Warm and dry. Normal turgor. No rash. Palpitation: Normal elasticity for age Abdomen: Abdomen is soft. Bowel sounds +. There is no abdominal tenderness, no guarding/rigidity or organomegaly Psych: normal insight and normal affect/mood MSK: no joint tenderness or swelling. Digits and nails normal, no deformity : kidney or bladder not palpable Access: AVF Labs/imaging reviewed. Past medical history, past surgical history, family history, social history, allergy reviewed and noted as below Family Hx: no hx of CKD. Non contributory Objective - Vital Signs/Intake and Output Vital Signs (last 24 hours): Temp Pulse Resp BP Pulse Ox 97.6 F 71 20 149/72 96 08/16/18 08:00 08/16/18 08:00 08/16/18 08:00 08/16/18 08:00 08/16/18 08:00 Intake and Output: 08/16/18 08/16/18 06:59 18:59 Intake Total 600 240 Output Total 450 Balance 600 -210 - Medications Medications: Current Medications Acetaminophen (Tylenol 325mg Tab) 650 mg PO Q6 PRN PRN Reason: Fever >100.4 F Acetaminophen (Tylenol 325mg Tab) 650 mg PO Q6 PRN PRN Reason: Pain, moderate (4-7) Amlodipine Besylate (Norvasc) 10 mg PO DAILY [facility] Last Admin: 08/16/18 10:43 Dose: 10 mg Calcium Acetate (Phoslo) 1,334 mg PO BIDCC [facility] Last Admin: 08/16/18 07:55 Dose: 1,334 mg Carvedilol (Coreg) 6.25 mg PO DAILY [facility] Last Admin: 08/16/18 10:43 Dose: 6.25 mg Docusate Sodium (Colace) 100 mg PO BID [facility] Last Admin: 08/16/18 10:43 Dose: 100 mg Epoetin Chato (Procrit) 4,000 unit IV MWF [facility] Last Admin: 08/14/18 14:37 Dose: 4,000 unit Famotidine (Pepcid) 20 mg PO DAILY [facility] Last Admin: 08/16/18 10:43 Dose: 20 mg Glimepiride (Amaryl) 4 mg PO DAILY [facility] Last Admin: 08/16/18 10:43 Dose: 4 mg Vancomycin HCl 1,000 mg/ (Sodium Chloride) 250 mls @ 166.6 mls/hr IVPB F [facility]; Protocol Last Admin: 08/14/18 09:09 Dose: 166.6 mls/hr Insulin Aspart (Novolog) 0 unit SC ACHS [facility]; Protocol Last Admin: 08/16/18 12:29 Dose: 4 units Insulin Glargine (Lantus) 40 unit SC HS [facility] Last Admin: 08/15/18 22:09 Dose: 40 u Lamotrigine (Lamictal) 25 mg PO BID [facility] Last Admin: 08/16/18 10:43 Dose: 25 mg Losartan Potassium (Cozaar) 100 mg PO DAILY [facility] Last Admin: 08/16/18 10:43 Dose: 100 mg Mupirocin (Bactroban Ointment) 0 gm TOP DAILY [facility] Last Admin: 08/16/18 10:43 Dose: Not Given Tamsulosin HCl (Flomax) 0.4 mg PO DAILY [facility] Last Admin: 08/16/18 10:43 Dose: 0.4 mg Vitamin B Complex/Vit C/Folic Acid (Nephro-Poly) 1 tab PO 0800 [facility] Last Admin: 08/16/18 07:55 Dose: 1 tab - Labs Labs: 08/16/18 07:37 08/09/18 09:31 PT 12.5 SECONDS (9.7-12.2) H 08/04/18 11:56 INR 1.1 08/04/18 11:56 APTT 28 SECONDS (21-34) 08/04/18 11:56
--- NOTE | 2018-08-16 14:22 | CP.PCM.PN ---
Subjective - Date & Time of Evaluation Date of Evaluation: 08/16/18 Time of Evaluation: 08:00 - Subjective Subjective: right great toe dry no valeri pus Objective - Vital Signs/Intake and Output Vital Signs (last 24 hours): Temp Pulse Resp BP Pulse Ox 97.6 F 71 20 149/72 96 08/16/18 08:00 08/16/18 08:00 08/16/18 08:00 08/16/18 08:00 08/16/18 08:00 Intake and Output: 08/16/18 08/16/18 06:59 18:59 Intake Total 600 240 Output Total 450 Balance 600 -210 - Medications Medications: Current Medications Acetaminophen (Tylenol 325mg Tab) 650 mg PO Q6 PRN PRN Reason: Fever >100.4 F Acetaminophen (Tylenol 325mg Tab) 650 mg PO Q6 PRN PRN Reason: Pain, moderate (4-7) Amlodipine Besylate (Norvasc) 10 mg PO DAILY [facility] Last Admin: 08/16/18 10:43 Dose: 10 mg [facility] Last Admin: 08/16/18 07:55 Dose: 1,334 mg Carvedilol (Coreg) 6.25 mg PO DAILY [facility] Last Admin: 08/16/18 10:43 Dose: 6.25 mg Docusate Sodium (Colace) 100 mg PO BID [facility] Last Admin: 08/16/18 10:43 Dose: 100 mg Epoetin Chato (Procrit) 4,000 unit [place] [facility] Last Admin: 08/14/18 14:37 Dose: 4,000 unit Famotidine (Pepcid) 20 mg PO DAILY [facility] Last Admin: 08/16/18 10:43 Dose: 20 mg Glimepiride (Amaryl) 4 mg PO DAILY [facility] Last Admin: 08/16/18 10:43 Dose: 4 mg Vancomycin HCl 1,000 mg/ (Sodium Chloride) 250 mls @ 166.6 mls/hr [place]PB [facility] Protocol Last Admin: 08/14/18 09:09 Dose: 166.6 mls/hr Insulin Aspart (Novolog) 0 unit SC [facility]; Protocol Last Admin: 08/16/18 12:29 Dose: 4 units Insulin Glargine (Lantus) 40 unit SC [facility] Last Admin: 08/15/18 22:09 Dose: 40 u Lamotrigine (Lamictal) 25 mg PO BID [facility] Last Admin: 08/16/18 10:43 Dose: 25 mg Losartan Potassium (Cozaar) 100 mg PO DAILY [facility] Last Admin: 08/16/18 10:43 Dose: 100 mg Mupirocin (Bactroban Ointment) 0 gm TOP DAILY [facility] Last Admin: 08/16/18 10:43 Dose: Not Given Tamsulosin HCl (Flomax) 0.4 mg PO DAILY [facility] Last Admin: 08/16/18 10:43 Dose: 0.4 mg Vitamin B Complex/Vit C/Folic Acid (Nephro-Poly) 1 tab PO 0800 [facility] Last Admin: 08/16/18 07:55 Dose: 1 tab - Labs Labs: 08/16/18 07:37 08/09/18 09:31 PT 12.5 SECONDS (9.7-12.2) H 08/04/18 11:56 INR 1.1 08/04/18 11:56 APTT 28 SECONDS (21-34) 08/04/18 11:56 - Constitutional Appears: Non-toxic, Chronically Ill - Head Exam Head Exam: NORMOCEPHALIC - Eye Exam Eye Exam: absent: Scleral icterus - ENT Exam ENT Exam: Mucous Membranes Dry - Neck Exam Neck Exam: absent: Lymphadenopathy - Respiratory Exam Respiratory Exam: Decreased Breath Sounds - Cardiovascular Exam Cardiovascular Exam: REGULAR RHYTHM - GI/Abdominal Exam GI & Abdominal Exam: Distended - Rectal Exam Rectal Exam: Deferred - Exam Exam: NORMAL INSPECTION - Extremities Exam Extremities Exam: absent: Pedal Edema - Back Exam Back Exam: absent: CVA tenderness (L), CVA tenderness (R) - Neurological Exam Neurological Exam: Alert, Awake Assessment and Plan (1) Gangrene of toe of right foot Status: Resolved (2) Infected ulcer of skin Status: Acute (3) Ischemic ulcer of heel with necrosis of muscle Status: Resolved (4) Pneumonia Status: Acute (5) Right middle lobe pneumonia Status: Resolved (6) ESRD on hemodialysis Status: Chronic (7) Uncontrolled diabetes mellitus Status: Chronic (8) MRSA (methicillin resistant staph aureus) culture positive Status: Acute - Assessment and Plan (Free Text) Assessment: cont iv rx and wound care
[2018-08-16] MEDS: (Lantus) Insulin Glargine, Recombinant SC SCH (21:56)
--- NOTE | 2018-08-16 23:48 | CP.PCM.PN ---
Subjective - Date & Time of Evaluation Date of Evaluation: 08/16/18 Time of Evaluation: 16:45 - Subjective Subjective: Patient has no complaint. Right great toe ulcer has healed. Awaiting transfer to subacute rehabilitation. Objective - Vital Signs/Intake and Output Vital Signs (last 24 hours): Temp Pulse Resp BP Pulse Ox 97.7 F 68 20 106/59 L 96 08/16/18 15:00 08/16/18 15:00 08/16/18 15:00 08/16/18 15:00 08/16/18 15:00 Intake and Output: 08/16/18 08/17/18 18:59 06:59 Intake Total 720 600 Output Total 450 Balance 270 600 - Medications Medications: Current Medications Acetaminophen (Tylenol 325mg Tab) 650 mg PO Q6 PRN PRN Reason: Fever >100.4 F Acetaminophen (Tylenol 325mg Tab) 650 mg PO Q6 PRN PRN Reason: Pain, moderate (4-7) Amlodipine Besylate (Norvasc) 10 mg PO DAILY [facility] Last Admin: 08/16/18 10:43 Dose: 10 mg [facility] Last Admin: 08/16/18 18:23 Dose: 1,334 mg Carvedilol (Coreg) 6.25 mg PO DAILY [facility] Last Admin: 08/16/18 10:43 Dose: 6.25 mg Docusate Sodium (Colace) 100 mg PO BID [facility] Last Admin: 08/16/18 18:23 Dose: 100 mg Epoetin Chato (Procrit) 4,000 unit IV [facility] Last Admin: 08/14/18 14:37 Dose: 4,000 unit Famotidine (Pepcid) 20 mg PO DAILY [facility] Last Admin: 08/16/18 10:43 Dose: 20 mg Glimepiride (Amaryl) 4 mg PO DAILY [facility] Last Admin: 08/16/18 10:43 Dose: 4 mg Vancomycin/Sodium Chloride (Vancomycin 1 Gm/Ns 200 Ml) 1 gm in 200 mls @ 133.333 mls/hr IVPB [facility]; Protocol Stop: 08/22/18 09:01 Insulin Aspart (Novolog) 0 unit SC [facility]; Protocol Last Admin: 08/16/18 21:57 Dose: 2 units Insulin Glargine (Lantus) 40 unit SC [facility] Last Admin: 08/16/18 21:56 Dose: 40 u Lamotrigine (Lamictal) 25 mg PO BID [facility] Last Admin: 08/16/18 18:24 Dose: 25 mg Losartan Potassium (Cozaar) 100 mg PO DAILY [facility] Last Admin: 08/16/18 10:43 Dose: 100 mg Mupirocin (Bactroban Ointment) 0 gm TOP DAILY [facility] Last Admin: 08/16/18 10:43 Dose: Not Given Tamsulosin HCl (Flomax) 0.4 mg PO DAILY [facility] Last Admin: 08/16/18 10:43 Dose: 0.4 mg Vitamin B Complex/Vit C/Folic Acid (Nephro-Poly) 1 tab PO 0800 [facility] Last Admin: 08/16/18 07:55 Dose: 1 tab - Labs Labs: 08/16/18 07:37 08/09/18 09:31 PT 12.5 SECONDS (9.7-12.2) H 08/04/18 11:56 INR 1.1 08/04/18 11:56 APTT 28 SECONDS (21-34) 08/04/18 11:56 - Constitutional Appears: No Acute Distress, Chronically Ill - Head Exam Head Exam: NORMOCEPHALIC - Eye Exam Eye Exam: Normal appearance - ENT Exam ENT Exam: Normal Exam - Neck Exam Neck Exam: Normal Inspection - Respiratory Exam Respiratory Exam: Clear to Ausculation Bilateral - Cardiovascular Exam Cardiovascular Exam: REGULAR RHYTHM - GI/Abdominal Exam GI & Abdominal Exam: Soft, Normal Bowel Sounds - Rectal Exam Rectal Exam: Deferred - Extremities Exam Additional comments: Right grea toe ulcer healed. - Back Exam Back Exam: NORMAL INSPECTION - Neurological Exam Neurological Exam: Alert, Awake, Oriented x3 - Psychiatric Exam Psychiatric exam: Anxious Assessment and Plan (1) Ischemic ulcer of heel with necrosis of muscle Status: Resolved (2) Gangrene of toe of right foot Status: Resolved (3) Right middle lobe pneumonia Status: Resolved (4) Uncontrolled diabetes mellitus Status: Chronic (5) ESRD on hemodialysis Status: Chronic
[2018-08-17] MEDS: (Novolog) Insulin Aspart, Recombinant 100 u/ml 10 ml vial SC SCH ×4 (08:08→21:24)
[2018-08-17] MEDS: Multivitamin Vitamin B Complex (Nephro-Vite) Tab PO SCH (08:33)
[2018-08-17] MEDS: Vancomycin 1 gm/NS 200 ml 1 GM/200 ML BAG IVPB SCH ×2 (09:03→13:26)
[2018-08-17 10:32] LABS: ALBUMIN 4.2 g/dL (3.5-5.0); CALCIUM 9.2 mg/dl (8.6-10.4)
[2018-08-17 10:33] LABS: ALB/GLOB RATIO 1.1 (1.0-2.1)
[2018-08-17] MEDS: EPOETIN ALFA 4,000 UNIT/ML ML Dialysis IV SCH (11:09)
--- NOTE | 2018-08-17 15:23 | CP.PCM.PN ---
Subjective - Date & Time of Evaluation Date of Evaluation: 08/17/18 Time of Evaluation: 15:22 - Subjective Subjective: Nephrology Consultation Note: Assessment: Stable Rt foot cellulitis and Pneumonia Diabetic chronic Kidney Disease (E11.22) Hypertensive Chronic Kidney Disease (I12.0) End stage renal disease (N18.6) dependence on hemodialysis (Z99.2) (MWF) via AVF Anemia (D64.9), Hyperphosphatemia (E83.39), Secondary Hyperparathyroidism (E21.1), HTN (I12.0) Plan: Will plan for HD MWF schedule as ordered. Continue with Nephrovite 1 tab/day. PRBC as needed for anemia.on LESLI with dialysis as last Hb 10.3 Continue with phos binders, last phos level: 3.8 BP control with meds as ordered. Patient on RAAS ish Glycemic control, Dialysis consistent diet Further work up/management as per primary team Dose meds/antibiotics (if needed) for ESRD status. Avoid fleets enema/magnesium based laxatives. pt stable for d/c from renal perspective when planned. awaiting [facility] Thanks for allowing me to participate in care of your patient. Will follow pat ient with you. Please call if any Qs Dr Edwardo Valenzuela Office: [phone] Chief Complaint;Rt toe infection and cough HPI: Pt is a 78 year old male with PMHx of DM, HTN, HLD, ESRD on dialysis (MWF), CAD s/p CABG, AVR, BPH and Bipolar disorder presents to ED complaining of cough x 2 weeks and redness, swelling of the right big toe and admitted for cellulitis, pneumonia. Renal consult requested for ESRD management. last HD friday. otherwise feels usual health ROS: Cardiovascular: No chest pain. Pulmonary: No shortness of breath . Gastrointestinal: denies abdominal pain No nausea. No vomiting. Genitourinary: No pain while urinating. Denies blood in urine. All other negative except as mentioned in HPI Physical Examination: seen at end of dialysis General Appearance: Comfortable, in no acute respiratory distress, co-operative . Vitals reviewed and noted as below Head; Atraumatic, normocephalic ENT: no ulcers no thrush. Tongue is midline. Oropharynx: no rash or ulcers. EYES: Pupils are equal, round and reactive to light accommodation. Eye muscles and extraocular movement intact. Sclera is anicteric. Neck; supple no lymphadenopathy, no thyromegaly or bruit Lungs: Normal respiratory rate/effort. Breath sounds bilateral equal and clear Heart: Normal rate. s1s2 normal. No rub or gallop. Extremities: no edema. No varicose veins. Neurological: Patient is alert, awake and oriented to person, place and time. No focal deficit. Strength bilateral appropriate and equal Skin: Warm and dry. Normal turgor. No rash. Palpitation: Normal elasticity for age Abdomen: Abdomen is soft. Bowel sounds +. There is no abdominal tenderness, no guarding/rigidity or organomegaly Psych: normal insight and normal affect/mood MSK: no joint tenderness or swelling. Digits and nails normal, no deformity : kidney or bladder not palpable Access: AVF Labs/imaging reviewed. Past medical history, past surgical history, family history, social history, all ergy reviewed and noted as below Family Hx: no hx of CKD. Non contributory Objective - Vital Signs/Intake and Output Vital Signs (last 24 hours): Temp Pulse Resp BP Pulse Ox 97.3 F L 67 17 121/57 L 99 08/17/18 12:30 08/17/18 12:30 08/17/18 12:30 08/17/18 12:30 08/17/18 12:30 Intake and Output: 08/17/18 08/17/18 06:59 18:59 Intake Total 600 440 Balance 600 440 - Medications Medications: Current Medications Acetaminophen (Tylenol 325mg Tab) 650 mg PO Q6 PRN PRN Reason: Fever >100.4 F Acetaminophen (Tylenol 325mg Tab) 650 mg PO Q6 PRN PRN Reason: Pain, moderate (4-7) Amlodipine Besylate (Norvasc) 10 mg PO DAILY [facility] Last Admin: 08/17/18 09:04 Dose: Not Given [facility] ([facility] Last Admin: 08/17/18 08:33 Dose: 1,334 mg Carvedilol (Coreg) 6.25 mg PO DAILY [facility] Last Admin: 08/17/18 09:04 Dose: Not Given Docusate Sodium (Colace) 100 mg PO BID [facility] Last Admin: 08/17/18 09:04 Dose: Not Given Epoetin Chato (Procrit) 4,000 unit IV [facility] Last Admin: 08/17/18 11:09 Dose: 4,000 unit Famotidine (Pepcid) 20 mg PO DAILY [facility] Last Admin: 08/17/18 09:05 Dose: Not Given Glimepiride (Amaryl) 4 mg PO DAILY [facility] Last Admin: 08/17/18 09:04 Dose: Not Given Vancomycin/Sodium Chloride (Vancomycin 1 Gm/Ns 200 Ml) 1 gm in 200 mls @ 133.333 mls/hr IVPB MWF [facility]; Protocol Stop: 08/22/18 09:01 Last Admin: 08/17/18 13:26 Dose: 133.333 mls/hr Insulin Aspart (Novolog) 0 unit SC [facility]; Protocol Last Admin: 08/17/18 11:59 Dose: Not Given Insulin Glargine (Lantus) 40 unit SC [facility] Last Admin: 08/16/18 21:56 Dose: 40 u Lamotrigine (Lamictal) 25 mg PO BID [facility] Last Admin: 08/17/18 09:04 Dose: Not Given Losartan Potassium (Cozaar) 100 mg PO DAILY [facility] Last Admin: 08/17/18 09:04 Dose: Not Given Mupirocin (Bactroban Ointment) 0 gm TOP DAILY [facility] Last Admin: 08/17/18 09:04 Dose: Not Given Tamsulosin HCl (Flomax) 0.4 mg PO DAILY [facility] Last Admin: 08/17/18 09:04 Dose: Not Given Vitamin B Complex/Vit C/Folic Acid (Nephro-Poly) 1 tab PO 0800 [facility] Last Admin: 08/17/18 08:33 Dose: 1 tab - Labs Labs: 08/16/18 07:37 08/17/18 09:51 PT 12.5 SECONDS (9.7-12.2) H 08/04/18 11:56 INR 1.1 08/04/18 11:56 APTT 28 SECONDS (21-34) 08/04/18 11:56
[2018-08-17] MEDS: (Lantus) Insulin Glargine, Recombinant SC SCH (21:24)
--- NOTE | 2018-08-18 00:41 | CP.PCM.PN ---
Subjective - Date & Time of Evaluation Date of Evaluation: 08/17/18 Time of Evaluation: 20:00 - Subjective Subjective: Patient has no complaint. Right great toe ulcer healed. Awaiting transfer to a subacute rehabilitation. Objective - Vital Signs/Intake and Output Vital Signs (last 24 hours): Temp Pulse Resp BP Pulse Ox 97.5 F L 67 20 134/70 97 08/17/18 23:54 08/17/18 23:54 08/17/18 23:54 08/17/18 23:54 08/17/18 23:54 Intake and Output: 08/17/18 08/18/18 18:59 06:59 Intake Total 440 Balance 440 - Medications Medications: Current Medications Acetaminophen (Tylenol 325mg Tab) 650 mg PO Q6 PRN PRN Reason: Fever >100.4 F Acetaminophen (Tylenol 325mg Tab) 650 mg PO Q6 PRN PRN Reason: Pain, moderate (4-7) Amlodipine Besylate (Norvasc) 10 mg PO DAILY [facility] Last Admin: 08/17/18 09:04 Dose: Not Given Calcium Acetate (Phoslo) 1,[facility] Last Admin: 08/17/18 17:17 Dose: 1,334 mg Carvedilol (Coreg) 6.25 mg PO DAILY [facility] Last Admin: 08/17/18 09:04 Dose: Not Given Docusate Sodium (Colace) 100 mg PO BID [facility] Last Admin: 08/17/18 17:17 Dose: 100 mg Epoetin Chato (Procrit) 4,000 unit IV [facility] [place] [facility] Last Admin: 08/17/18 11:09 Dose: 4,000 unit Famotidine (Pepcid) 20 mg PO DAILY [facility] Last Admin: 08/17/18 09:05 Dose: Not Given Glimepiride (Amaryl) 4 mg PO DAILY [facility] Last Admin: 08/17/18 09:04 Dose: Not Given Vancomycin/Sodium Chloride (Vancomycin 1 Gm/Ns 200 Ml) 1 gm in 200 mls @ 133.333 mls/hr IVPB [facility] [place]; Protocol Stop: 08/22/18 09:01 Last Admin: 08/17/18 13:26 Dose: 133.333 mls/hr Insulin Aspart (Novolog) 0 unit SC [facility]; Protocol Last Admin: 08/17/18 21:24 Dose: Not Given Insulin Glargine (Lantus) 40 unit SC HS [facility] Last Admin: 08/17/18 21:24 Dose: 40 u Lamotrigine (Lamictal) 25 mg PO BID [facility] Last Admin: 08/17/18 17:17 Dose: 25 mg Losartan Potassium (Cozaar) 100 mg PO DAILY [facility] Last Admin: 08/17/18 09:04 Dose: Not Given Mupirocin (Bactroban Ointment) 0 gm TOP DAILY [facility] Last Admin: 08/17/18 09:04 Dose: Not Given Tamsulosin HCl (Flomax) 0.4 mg PO DAILY [facility] Last Admin: 08/17/18 09:04 Dose: Not Given Vitamin B Complex/Vit C/Folic Acid (Nephro-Poly) 1 tab PO 0800 [facility] Last Admin: 08/17/18 08:33 Dose: 1 tab - Labs Labs: 08/16/18 07:37 08/17/18 09:51 PT 12.5 SECONDS (9.7-12.2) H 08/04/18 11:56 INR 1.1 08/04/18 11:56 APTT 28 SECONDS (21-34) 08/04/18 11:56 - Constitutional Appears: No Acute Distress, Chronically Ill - Head Exam Head Exam: NORMOCEPHALIC - Eye Exam Eye Exam: Normal appearance - ENT Exam ENT Exam: Normal Exam - Neck Exam Neck Exam: Normal Inspection - Respiratory Exam Respiratory Exam: Rhonchi, NORMAL BREATHING PATTERN - Cardiovascular Exam Cardiovascular Exam: REGULAR RHYTHM - GI/Abdominal Exam GI & Abdominal Exam: Soft, Normal Bowel Sounds - Rectal Exam Rectal Exam: Deferred - Back Exam Back Exam: NORMAL INSPECTION - Neurological Exam Neurological Exam: Alert, Awake, Oriented x3 - Psychiatric Exam Psychiatric exam: Anxious - Skin Skin Exam: Normal Color Assessment and Plan (1) Ischemic ulcer of heel with necrosis of muscle Status: Resolved (2) Gangrene of toe of right foot Status: Resolved (3) Right middle lobe pneumonia Status: Resolved (4) Uncontrolled diabetes mellitus Status: Chronic (5) ESRD on hemodialysis Status: Chronic
--- NOTE | 2018-08-18 01:17 | CP.PCM.PN ---
Subjective - Date & Time of Evaluation Date of Evaluation: 08/17/18 Time of Evaluation: 21:00 - Subjective Subjective: Podiatry Progress Note- Dr. Jenkins 78M seen and evaluated at bedside for bilateral heel deep tissue injuries and healed right hallux ulceration. Patient is seen resting comfortably in bed. Reports feeling well. Reports sleeping well. Patient is seen with attending Dr. Jenkins. Denies of pain to the lower extremity. Denies nausea, fever, shortness of breath, chest pains or chills. No pedal complaints at this time. Objective - Vital Signs/Intake and Output Vital Signs (last 24 hours): Temp Pulse Resp BP Pulse Ox 97.5 F L 67 20 134/70 97 08/17/18 23:54 08/17/18 23:54 08/17/18 23:54 08/17/18 23:54 08/17/18 23:54 Intake and Output: 08/17/18 08/18/18 18:59 06:59 Intake Total 440 Balance 440 - Medications Medications: Current Medications Acetaminophen (Tylenol 325mg Tab) 650 mg PO Q6 PRN PRN Reason: Fever >100.4 F Acetaminophen (Tylenol 325mg Tab) 650 mg PO Q6 PRN PRN Reason: Pain, moderate (4-7) Amlodipine Besylate (Norvasc) 10 mg PO DAILY [facility] Last Admin: 08/17/18 09:04 Dose: Not Given Calcium Acetate (Phoslo) 1,334 mg PO BIDCC [facility] Last Admin: 08/17/18 17:17 Dose: 1,334 mg Carvedilol (Coreg) 6.25 mg PO DAILY [facility] Last Admin: 08/17/18 09:04 Dose: Not Given Docusate Sodium (Colace) 100 mg PO BID [facility] Last Admin: 08/17/18 17:17 Dose: 100 mg Epoetin Chato (Procrit) 4,000 unit IV MWF [facility] Last Admin: 08/17/18 11:09 Dose: 4,000 unit Famotidine (Pepcid) 20 mg PO DAILY [facility] Last Admin: 08/17/18 09:05 Dose: Not Given Glimepiride (Amaryl) 4 mg PO DAILY [facility] Last Admin: 08/17/18 09:04 Dose: Not Given Vancomycin/Sodium Chloride (Vancomycin 1 Gm/Ns 200 Ml) 1 gm in 200 mls @ 133.333 mls/hr IVPB MWF [facility]; Protocol Stop: 08/22/18 09:01 Last Admin: 08/17/18 13:26 Dose: 133.333 mls/hr Insulin Aspart (Novolog) 0 unit SC [facility]; Protocol Last Admin: 08/17/18 21:24 Dose: Not Given Insulin Glargine (Lantus) 40 unit SC HS [facility] Last Admin: 08/17/18 21:24 Dose: 40 u Lamotrigine (Lamictal) 25 mg PO BID [facility] Last Admin: 08/17/18 17:17 Dose: 25 mg Losartan Potassium (Cozaar) 100 mg PO DAILY [facility] Last Admin: 08/17/18 09:04 Dose: Not Given Mupirocin (Bactroban Ointment) 0 gm TOP DAILY [facility] Last Admin: 08/17/18 09:04 Dose: Not Given Tamsulosin HCl (Flomax) 0.4 mg PO DAILY [facility] Last Admin: 08/17/18 09:04 Dose: Not Given Vitamin B Complex/Vit C/Folic Acid (Nephro-Poly) 1 tab PO 0800 [facility] Last Admin: 08/17/18 08:33 Dose: 1 tab - Labs Labs: 08/16/18 07:37 08/17/18 09:51 PT 12.5 SECONDS (9.7-12.2) H 08/04/18 11:56 INR 1.1 08/04/18 11:56 APTT 28 SECONDS (21-34) 08/04/18 11:56 - Constitutional Appears: Well, Non-toxic, No Acute Distress - Extremities Exam Extremities Exam: absent: Calf Tenderness Additional comments: Lower extremity focused exam: Vasc: DP/PT pulses palpable 2/4 B/L. Temperature gradient warm to cool B/L. CFT < 3 sec to all digits. No pedal edema noted Derm: Dry hyperkeratotic tissue noted to entirety of distal tip of right hallux with hyperpigmentation of digit and centrally located ulceration to plantar aspect of distal phalanx. Ulcer is circular, superficial ulceration at the distal hallux has epithelized over and completely healed. No abscess, no odor, no streaking , no erythemano active drainage, no malodor, no purulence, no fluctuance, no alexus wound erythema. No evidence of necrosis or gangrenous changes at present. Deep tissue injuries noted to bilateral posteroplantar heels. No breaks in skin or soft tissue of heels noted B/L. Neuro: protective sensation grossly intact Ortho: no tenderness to palpation of right great toe or bilateral plantar heels at site of deep tissue injuries - Neurological Exam Neurological Exam: Alert, Awake - Psychiatric Exam Psychiatric exam: Normal Affect, Normal Mood Assessment and Plan - Assessment and Plan (Free Text) Assessment: 78 year old male patient with healed right great toe ulceration and bilateral heel deep tissue injuries likely secondary to pressure -stable Plan: Patient seen and evaluated at bedside Afebrile, absent leukocytosis Foot x-rays show no acute osseous findings, no evidence of osteomyelitis Arterial duplex studies show no significant arterial insufficiency to lower extremities Right distal hallux ulceration completely healed with epithelized layer. Cleansed with saline solution, pat dry Cleansed left and right heel with saline solution, dressed with Optifoam Podiatry will continue with local wound care, no surgical intervention Offloading with multipodus boots. Multipodus boots are to be worn at all times in bed Wound culture; methicillin resistant staph aureus, cornybacterium Continue IV abx per ID recommendations No surgical intervention at this time. Will provide local wound care while in house Stable per podiatry standpoint Upon discharge, patient to follow up with Dr. Jenkins in clinic within 1 week
[2018-08-18] MEDS: Multivitamin Vitamin B Complex (Nephro-Vite) Tab PO SCH (08:07)
[2018-08-18] MEDS: (Novolog) Insulin Aspart, Recombinant 100 u/ml 10 ml vial SC SCH ×4 (08:31→22:29)
--- NOTE | 2018-08-18 11:14 | CP.PCM.PN ---
Subjective - Date & Time of Evaluation Date of Evaluation: 08/18/18 Time of Evaluation: 11:13 - Subjective Subjective: Nephrology Consultation Note: Assessment: Stable Rt foot cellulitis and Pneumonia Diabetic chronic Kidney Disease (E11.22) Hypertensive Chronic Kidney Disease (I12.0) End stage renal disease (N18.6) dependence on hemodialysis (Z99.2) (MWF) via AVF Anemia (D64.9), Hyperphosphatemia (E83.39), Secondary Hyperparathyroidism (E21.1), HTN (I12.0) Plan: Will plan for HD MWF schedule as ordered. Continue with Nephrovite 1 tab/day. PRBC as needed for anemia.on LESLI with dialysis as last Hb 10.3 Continue with phos binders, last phos level: 3.8 BP control with meds as ordered. Patient on RAAS ish Glycemic control, Dialysis consistent diet Further work up/management as per primary team Dose meds/antibiotics (if needed) for ESRD status. Avoid fleets enema/magnesium based laxatives. pt stable for d/c from renal perspective when planned. awaiting [facility] Thanks for allowing me to participate in care of your patient. Will follow pat ient with you. Please call if any Qs Dr Edwardo Valenzuela Office: [phone] Chief Complaint;Rt toe infection and cough HPI: Pt is a 78 year old male with PMHx of DM, HTN, HLD, ESRD on dialysis (MWF), CAD s/p CABG, AVR, BPH and Bipolar disorder presents to ED complaining of cough x 2 weeks and redness, swelling of the right big toe and admitted for cellulitis, pneumonia. Renal consult requested for ESRD management. last HD friday. otherwise feels usual health ROS: Cardiovascular: No chest pain. Pulmonary: No shortness of breath . Gastrointestinal: denies abdominal pain No nausea. No vomiting. Genitourinary: No pain while urinating. Denies blood in urine. All other negative except as mentioned in HPI Physical Examination: General Appearance: Comfortable, in no acute respiratory distress, co-operative . Vitals reviewed and noted as below Head; Atraumatic, normocephalic ENT: no ulcers no thrush. Tongue is midline. Oropharynx: no rash or ulcers. EYES: Pupils are equal, round and reactive to light accommodation. Eye muscles and extraocular movement intact. Sclera is anicteric. Neck; supple no lymphadenopathy, no thyromegaly or bruit Lungs: Normal respiratory rate/effort. Breath sounds bilateral equal and clear Heart: Normal rate. s1s2 normal. No rub or gallop. Extremities: no edema. No varicose veins. Neurological: Patient is alert, awake and oriented to person, place and time. No focal deficit. Strength bilateral appropriate and equal Skin: Warm and dry. Normal turgor. No rash. Palpitation: Normal elasticity for age Abdomen: Abdomen is soft. Bowel sounds +. There is no abdominal tenderness, no guarding/rigidity or organomegaly Psych: normal insight and normal affect/mood MSK: no joint tenderness or swelling. Digits and nails normal, no deformity : kidney or bladder not palpable Access: AVF Labs/imaging reviewed. Past medical history, past surgical history, family history, social history, allergy reviewed and noted as below Family Hx: no hx of CKD. Non contributory Objective - Vital Signs/Intake and Output Vital Signs (last 24 hours): Temp Pulse Resp BP Pulse Ox 98.1 F 71 20 123/62 97 08/18/18 07:00 08/18/18 07:00 08/18/18 07:00 08/18/18 07:00 08/18/18 07:00 Intake and Output: 08/18/18 08/18/18 06:59 18:59 Intake Total 120 Balance 120 - Medications Medications: Current Medications Acetaminophen (Tylenol 325mg Tab) 650 mg PO Q6 PRN PRN Reason: Fever >100.4 F Acetaminophen (Tylenol 325mg Tab) 650 mg PO Q6 PRN PRN Reason: Pain, moderate (4-7) Amlodipine Besylate (Norvasc) 10 mg PO DAILY [facility] Last Admin: 08/18/18 10:07 Dose: 10 mg Calcium Acetate (Phoslo) 1,334 mg PO BIDCC [facility] Last Admin: 08/18/18 08:08 Dose: 1,334 mg Carvedilol (Coreg) 6.25 mg PO DAILY [facility] Last Admin: 08/18/18 10:07 Dose: 6.25 mg Docusate Sodium (Colace) 100 mg PO BID [facility] Last Admin: 08/18/18 10:07 Dose: 100 mg Epoetin Chato (Procrit) 4,000 unit IV [facility] Last Admin: 08/17/18 11:09 Dose: 4,000 unit Famotidine (Pepcid) 20 mg PO DAILY [facility] Last Admin: 08/18/18 10:09 Dose: 20 mg Glimepiride (Amaryl) 4 mg PO DAILY [facility] Last Admin: 08/18/18 10:07 Dose: 4 mg Vancomycin/Sodium Chloride (Vancomycin 1 Gm/Ns 200 Ml) 1 gm in 200 mls @ 1 33.333 mls/hr IVPB MWF [facility]; Protocol Stop: 08/22/18 09:01 Last Admin: 08/17/18 13:26 Dose: 133.333 mls/hr Insulin Aspart (Novolog) 0 unit SC ACHS [facility]; Protocol Last Admin: 08/18/18 08:31 Dose: 2 units Insulin Glargine (Lantus) 40 unit SC HS [facility] Last Admin: 08/17/18 21:24 Dose: 40 u Lamotrigine (Lamictal) 25 mg PO BID [facility] Last Admin: 08/18/18 10:07 Dose: 25 mg Losartan Potassium (Cozaar) 100 mg PO DAILY [facility] Last Admin: 08/18/18 10:06 Dose: 100 mg Mupirocin (Bactroban Ointment) 0 gm TOP DAILY [facility] Last Admin: 08/18/18 10:06 Dose: 1 applic Tamsulosin HCl (Flomax) 0.4 mg PO DAILY [facility] Last Admin: 08/18/18 10:07 Dose: 0.4 mg Vitamin B Complex/Vit C/Folic Acid (Nephro-Poly) 1 tab PO 0800 [facility] Last Admin: 08/18/18 08:07 Dose: 1 tab - Labs Labs: 08/16/18 07:37 08/17/18 09:51 PT 12.5 SECONDS (9.7-12.2) H 08/04/18 11:56 INR 1.1 08/04/18 11:56 APTT 28 SECONDS (21-34) 08/04/18 11:56
[2018-08-18] MEDS: (Lantus) Insulin Glargine, Recombinant SC SCH (22:29)
--- NOTE | 2018-08-19 02:27 | CP.PCM.PN ---
Subjective - Date & Time of Evaluation Date of Evaluation: 08/18/18 Time of Evaluation: 20:00 - Subjective Subjective: Patient has no complaint. Right great toe ulcer healing well. Awaiting transfer to subacute rehabilitation. Objective - Vital Signs/Intake and Output Vital Signs (last 24 hours): Temp Pulse Resp BP Pulse Ox 98 F 70 20 132/65 99 08/19/18 00:04 08/19/18 00:04 08/19/18 00:04 08/19/18 00:04 08/19/18 00:04 - Medications Medications: Current Medications Acetaminophen (Tylenol 325mg Tab) 650 mg PO Q6 PRN PRN Reason: Fever >100.4 F Acetaminophen (Tylenol 325mg Tab) 650 mg PO Q6 PRN PRN Reason: Pain, moderate (4-7) Amlodipine Besylate (Norvasc) 10 mg PO DAILY [facility] Last Admin: 08/18/18 10:07 Dose: 10 mg [facility] Last Admin: 08/18/18 17:25 Dose: 1,334 mg Carvedilol (Coreg) 6.25 mg PO DAILY [facility] Last Admin: 08/18/18 10:07 Dose: 6.25 mg Docusate Sodium (Colace) 100 mg PO BID [facility] Last Admin: 08/18/18 17:25 Dose: 100 mg Epoetin Chato (Procrit) 4,000 unit IV [facility] Last Admin: 08/17/18 11:09 Dose: 4,000 unit Famotidine (Pepcid) 20 mg PO DAILY [facility] Last Admin: 08/18/18 10:09 Dose: 20 mg Glimepiride (Amaryl) 4 mg PO DAILY [facility] Last Admin: 08/18/18 10:07 Dose: 4 mg Vancomycin/Sodium Chloride (Vancomycin 1 Gm/Ns 200 Ml) 1 gm in 200 mls @ 133.3 33 mls/hr IVPB [facility]; Protocol Stop: 08/22/18 09:01 Last Admin: 08/17/18 13:26 Dose: 133.333 mls/hr Insulin Aspart (Novolog) 0 unit SC [facility]; Protocol Last Admin: 08/18/18 22:29 Dose: Not Given Insulin Glargine (Lantus) 40 unit SC [facility] Last Admin: 08/18/18 22:29 Dose: 40 u Lamotrigine (Lamictal) 25 mg PO BID [facility] Last Admin: 08/18/18 17:24 Dose: 25 mg Losartan Potassium (Cozaar) 100 mg PO DAILY [facility] Last Admin: 08/18/18 10:06 Dose: 100 mg Mupirocin (Bactroban Ointment) 0 gm TOP DAILY [facility] Last Admin: 08/18/18 10:06 Dose: 1 applic Tamsulosin HCl (Flomax) 0.4 mg PO DAILY [facility] Last Admin: 08/18/18 10:07 Dose: 0.4 mg Vitamin B Complex/Vit C/Folic Acid (Nephro-Poly) 1 tab PO 0800 [facility] Last Admin: 08/18/18 08:07 Dose: 1 tab - Labs Labs: 08/16/18 07:37 08/17/18 09:51 PT 12.5 SECONDS (9.7-12.2) H 08/04/18 11:56 INR 1.1 08/04/18 11:56 APTT 28 SECONDS (21-34) 08/04/18 11:56 - Constitutional Appears: No Acute Distress, Chronically Ill - Head Exam Head Exam: NORMOCEPHALIC - Eye Exam Eye Exam: Normal appearance - ENT Exam ENT Exam: Normal Exam - Neck Exam Neck Exam: Normal Inspection - Respiratory Exam Respiratory Exam: Clear to Ausculation Bilateral - Cardiovascular Exam Cardiovascular Exam: REGULAR RHYTHM - GI/Abdominal Exam GI & Abdominal Exam: Soft, Normal Bowel Sounds - Rectal Exam Rectal Exam: Deferred - Extremities Exam Additional comments: Chronic change of the right great toe. - Back Exam Back Exam: NORMAL INSPECTION - Neurological Exam Neurological Exam: Alert, Awake, Oriented x3 - Psychiatric Exam Psychiatric exam: Anxious Assessment and Plan (1) Ischemic ulcer of heel with necrosis of muscle Status: Resolved (2) Gangrene of toe of right foot Status: Resolved (3) Right middle lobe pneumonia Status: Resolved (4) Uncontrolled diabetes mellitus Status: Chronic (5) ESRD on hemodialysis Status: Chronic
[2018-08-19] MEDS: (Novolog) Insulin Aspart, Recombinant 100 u/ml 10 ml vial SC SCH ×4 (08:10→22:08)
[2018-08-19] MEDS: Multivitamin Vitamin B Complex (Nephro-Vite) Tab PO SCH (08:11)
[2018-08-19] MEDS: EPOETIN ALFA 4,000 UNIT/ML ML Dialysis IV SCH (09:36)
[2018-08-19] MEDS: Vancomycin 1 gm/NS 200 ml 1 GM/200 ML BAG IVPB SCH ×2 (09:37→13:11)
--- NOTE | 2018-08-19 11:27 | CP.PCM.PN ---
Subjective - Date & Time of Evaluation Date of Evaluation: 08/19/18 Time of Evaluation: 11:26 - Subjective Subjective: Nephrology Consultation Note: Assessment: Stable Rt foot cellulitis and Pneumonia Diabetic chronic Kidney Disease (E11.22) Hypertensive Chronic Kidney Disease (I12.0) End stage renal disease (N18.6) dependence on hemodialysis (Z99.2) (MWF) via AVF Anemia (D64.9), Hyperphosphatemia (E83.39), Secondary Hyperparathyroidism (E21.1), HTN (I12.0) Plan: Will plan for HD MWF schedule as ordered. Continue with Nephrovite 1 tab/day. PRBC as needed for anemia.on LESLI with dialysis as last Hb 10.3 Continue with phos binders, last phos level: 3.8 BP control with meds as ordered. Patient on RAAS ish Glycemic control, Dialysis consistent diet Further work up/management as per primary team Dose meds/antibiotics (if needed) for ESRD status. Avoid fleets enema/magnesium based laxatives. pt stable for d/c from renal perspective when planned. awaiting [facility] placement Thanks for allowing me to participate in care of your patient. Will follow patient with you. Please call if any Qs Dr Edwardo Valenzuela Office: [phone] Chief Complaint;Rt toe infection and cough HPI: Pt is a 78 year old male with PMHx of DM, HTN, HLD, ESRD on dialysis (MWF), CAD s/p CABG, AVR, BPH and Bipolar disorder presents to ED complaining of cough x 2 weeks and redness, swelling of the right big toe and admitted for tashi lulitis, pneumonia. Renal consult requested for ESRD management. last HD friday. otherwise feels usual health ROS: Cardiovascular: No chest pain. Pulmonary: No shortness of breath . Gastrointestinal: denies abdominal pain No nausea. No vomiting. Genitourinary: No pain while urinating. Denies blood in urine. All other negative except as mentioned in HPI Physical Examination: seen on HD General Appearance: Comfortable, in no acute respiratory distress, co-operative . Vitals reviewed and noted as below Head; Atraumatic, normocephalic ENT: no ulcers no thrush. Tongue is midline. Oropharynx: no rash or ulcers. EYES: Pupils are equal, round and reactive to light accommodation. Eye muscles and extraocular movement intact. Sclera is anicteric. Neck; supple no lymphadenopathy, no thyromegaly or bruit Lungs: Normal respiratory rate/effort. Breath sounds bilateral equal and clear Heart: Normal rate. s1s2 normal. No rub or gallop. Extremities: no edema. No varicose veins. Neurological: Patient is alert, awake and oriented to person, place and time. No focal deficit. Strength bilateral appropriate and equal Skin: Warm and dry. Normal turgor. No rash. Palpitation: Normal elasticity for age Abdomen: Abdomen is soft. Bowel sounds +. There is no abdominal tenderness, no guarding/rigidity or organomegaly Psych: normal insight and normal affect/mood MSK: no joint tenderness or swelling. Digits and nails normal, no deformity : kidney or bladder not palpable Access: AVF Labs/imaging reviewed. Past medical history, past surgical history, family history, social history, allergy reviewed and noted as below Family Hx: no hx of CKD. Non contributory Objective - Vital Signs/Intake and Output Vital Signs (last 24 hours): Temp Pulse Resp BP Pulse Ox 98.1 F 66 17 127/63 98 08/19/18 09:05 08/19/18 09:05 08/19/18 09:05 08/19/18 11:05 08/19/18 09:05 Intake and Output: 08/19/18 08/19/18 06:59 18:59 Intake Total 120 Balance 120 - Medications Medications: Current Medications Acetaminophen (Tylenol 325mg Tab) 650 mg PO Q6 PRN PRN Reason: Fever >100.4 F Acetaminophen (Tylenol 325mg Tab) 650 mg PO Q6 PRN PRN Reason: Pain, moderate (4-7) Amlodipine Besylate (Norvasc) 10 mg PO DAILY [facility] Last Admin: 08/19/18 09:02 Dose: Not Given Calcium Acetate (Phoslo) 1,334 mg PO BIDCC [facility] Last Admin: 08/19/18 08:09 Dose: 1,334 mg Carvedilol (Coreg) 6.25 mg PO DAILY [facility] Last Admin: 08/19/18 09:02 Dose: Not Given Docusate Sodium (Colace) 100 mg PO BID [facility] Last Admin: 08/19/18 09:01 Dose: Not Given Epoetin Chato (Procrit) 4,000 unit IV MWF [facility] Last Admin: 08/19/18 09:36 Dose: 4,000 unit Famotidine (Pepcid) 20 mg PO DAILY [facility] Last Admin: 08/19/18 09:02 Dose: Not Given Glimepiride (Amaryl) 4 mg PO DAILY [facility] Last Admin: 08/19/18 09:01 Dose: Not Given Vancomycin/Sodium Chloride (Vancomycin 1 Gm/Ns 200 Ml) 1 gm in 200 mls @ 133.333 mls/hr IVPB MWF [facility]; Protocol Stop: 08/22/18 09:01 Last Admin: 08/17/18 13:26 Dose: 133.333 mls/hr Insulin Aspart (Novolog) 0 unit SC ACHS [facility]; Protocol Last Admin: 08/19/18 11:17 Dose: Not Given Insulin Glargine (Lantus) 40 unit SC HS [facility] Last Admin: 08/18/18 22:29 Dose: 40 u Lamotrigine (Lamictal) 25 mg PO BID [facility] Last Admin: 08/19/18 09:02 Dose: Not Given Losartan Potassium (Cozaar) 100 mg PO DAILY [facility] Last Admin: 08/19/18 09:02 Dose: Not Given Mupirocin (Bactroban Ointment) 0 gm TOP DAILY [facility] Last Admin: 08/19/18 09:11 Dose: Not Given Tamsulosin HCl (Flomax) 0.4 mg PO DAILY [facility] Last Admin: 08/19/18 09:02 Dose: Not Given Vitamin B Complex/Vit C/Folic Acid (Nephro-Poly) 1 tab PO 0800 [facility] Last Admin: 08/19/18 08:11 Dose: 1 tab - Labs Labs: 08/16/18 07:37 08/17/18 09:51 PT 12.5 SECONDS (9.7-12.2) H 08/04/18 11:56 INR 1.1 08/04/18 11:56 APTT 28 SECONDS (21-34) 08/04/18 11:56
--- NOTE | 2018-08-19 15:57 | CP.PCM.PN ---
Subjective - Date & Time of Evaluation Date of Evaluation: 08/19/18 Time of Evaluation: 08:00 - Subjective Subjective: 78M seen and evaluated at bedside for bilateral heel deep tissue injuries and healed right hallux ulceration. Objective - Vital Signs/Intake and Output Vital Signs (last 24 hours): Temp Pulse Resp BP Pulse Ox 97.7 F 89 17 84/49 L 98 08/19/18 12:35 08/19/18 12:35 08/19/18 12:35 08/19/18 12:35 08/19/18 12:35 Intake and Output: 08/19/18 08/19/18 06:59 18:59 Intake Total 120 500 Balance 120 500 - Medications Medications: Current Medications Acetaminophen (Tylenol 325mg Tab) 650 mg PO Q6 PRN PRN Reason: Fever >100.4 F Acetaminophen (Tylenol 325mg Tab) 650 mg PO Q6 PRN PRN Reason: Pain, moderate (4-7) Amlodipine Besylate (Norvasc) 10 mg PO DAILY [facility] Last Admin: 08/19/18 09:02 Dose: Not Given [facility] ([facility] Last Admin: 08/19/18 08:09 Dose: 1,334 mg Carvedilol (Coreg) 6.25 mg PO DAILY [facility] Last Admin: 08/19/18 09:02 Dose: Not Given Docusate Sodium (Colace) 100 mg PO BID [facility] Last Admin: 08/19/18 09:01 Dose: Not Given Epoetin Hcato (Procrit) 4,000 unit IV [facility] Last Admin: 08/19/18 09:36 Dose: 4,000 unit Famotidine (Pepcid) 20 mg PO DAILY [facility] Last Admin: 08/19/18 09:02 Dose: Not Given Glimepiride (Amaryl) 4 mg PO DAILY [facility] Last Admin: 08/19/18 09:01 Dose: Not Given Vancomycin/Sodium Chloride (Vancomycin 1 Gm/Ns 200 Ml) 1 gm in 200 mls @ 133.333 mls/hr IVPB [facility]; Protocol Stop: 08/22/18 09:01 Last Admin: 08/19/18 13:11 Dose: 133.333 mls/hr Insulin Aspart (Novolog) 0 unit SC [facility]; Protocol Last Admin: 08/19/18 11:17 Dose: Not Given Insulin Glargine (Lantus) 40 unit SC HS [facility] Last Admin: 08/18/18 22:29 Dose: 40 u Lamotrigine (Lamictal) 25 mg PO BID [facility] Last Admin: 08/19/18 09:02 Dose: Not Given Losartan Potassium (Cozaar) 100 mg PO DAILY [facility] Last Admin: 08/19/18 09:02 Dose: Not Given Mupirocin (Bactroban Ointment) 0 gm TOP DAILY [facility] Last Admin: 08/19/18 09:11 Dose: Not Given Tamsulosin HCl (Flomax) 0.4 mg PO DAILY [facility] Last Admin: 08/19/18 09:02 Dose: Not Given Vitamin B Complex/Vit C/Folic Acid (Nephro-Poly) 1 tab PO 0800 [facility] Last Admin: 08/19/18 08:11 Dose: 1 tab - Labs Labs: 08/16/18 07:37 08/17/18 09:51 PT 12.5 SECONDS (9.7-12.2) H 08/04/18 11:56 INR 1.1 08/04/18 11:56 APTT 28 SECONDS (21-34) 08/04/18 11:56 - Constitutional Appears: Non-toxic, Chronically Ill - Head Exam Head Exam: NORMOCEPHALIC - Eye Exam Eye Exam: absent: Scleral icterus - ENT Exam ENT Exam: Mucous Membranes Dry - Neck Exam Neck Exam: absent: Lymphadenopathy - Respiratory Exam Respiratory Exam: Decreased Breath Sounds, Prolonged Expiratory Phase, Rhonchi - Cardiovascular Exam Cardiovascular Exam: REGULAR RHYTHM, +S1, +S2 - GI/Abdominal Exam GI & Abdominal Exam: Distended, Soft - Rectal Exam Rectal Exam: Deferred - Extremities Exam Extremities Exam: Pedal Edema, Tenderness. absent: Calf Tenderness Additional comments: wounds dry no pus - Back Exam Back Exam: absent: CVA tenderness (L), CVA tenderness (R) - Neurological Exam Neurological Exam: Alert, Awake, CN II-XII Intact - Psychiatric Exam Psychiatric exam: Depressed Assessment and Plan (1) Gangrene of toe of right foot Status: Resolved (2) Infected ulcer of skin Status: Acute (3) Ischemic ulcer of heel with necrosis of muscle Status: Resolved (4) Pneumonia Status: Acute (5) Right middle lobe pneumonia Status: Resolved (6) ESRD on hemodialysis Status: Chronic (7) Uncontrolled diabetes mellitus Status: Chronic (8) MRSA (methicillin resistant staph aureus) culture positive Status: Acute - Assessment and Plan (Free Text) Assessment: IV antibiotic renewed case discussed with Dr Bradford on rounds
--- NOTE | 2018-08-19 19:18 | CP.PCM.PN ---
Subjective - Date & Time of Evaluation Date of Evaluation: 08/19/18 Time of Evaluation: 19:15 - Subjective Subjective: Patient has no complaint. Right great toe ulcer healed. Awaiting transfer to a subacute rehabilitation. Objective - Vital Signs/Intake and Output Vital Signs (last 24 hours): Temp Pulse Resp BP Pulse Ox 98.6 F 85 20 99/63 L 97 08/19/18 16:03 08/19/18 16:03 08/19/18 16:03 08/19/18 16:03 08/19/18 16:03 Intake and Output: 08/19/18 08/20/18 18:59 06:59 Intake Total 500 Balance 500 - Medications Medications: Current Medications Acetaminophen (Tylenol 325mg Tab) 650 mg PO Q6 PRN PRN Reason: Fever >100.4 F Acetaminophen (Tylenol 325mg Tab) 650 mg PO Q6 PRN PRN Reason: Pain, moderate (4-7) Amlodipine Besylate (Norvasc) 10 mg PO DAILY [facility] Last Admin: 08/19/18 09:02 Dose: Not Given [facility] Last Admin: 08/19/18 17:21 Dose: 1,334 mg Carvedilol (Coreg) 6.25 mg PO DAILY [facility] Last Admin: 08/19/18 09:02 Dose: Not Given Docusate Sodium (Colace) 100 mg PO BID [facility] Last Admin: 08/19/18 17:21 Dose: 100 mg Epoetin Chato (Procrit) 4,000 unit IV [facility] [place] Last Admin: 08/19/18 09:36 Dose: 4,000 unit Famotidine (Pepcid) 20 mg PO DAILY [facility] Last Admin: 08/19/18 09:02 Dose: Not Given Glimepiride (Amaryl) 4 mg PO DAILY [facility] Last Admin: 08/19/18 09:01 Dose: Not Given Vancomycin/Sodium Chloride (Vancomycin 1 Gm/Ns 200 Ml) 1 gm in 200 mls @ 133.333 mls/hr IVPB [facility] [place]; Protocol Stop: 08/22/18 09:01 Last Admin: 08/19/18 13:11 Dose: 133.333 mls/hr Insulin Aspart (Novolog) 0 unit SC [facility]; Protocol Last Admin: 08/19/18 17:20 Dose: 4 units Insulin Glargine (Lantus) 40 unit SC HS [facility] Last Admin: 08/18/18 22:29 Dose: 40 u Lamotrigine (Lamictal) 25 mg PO BID [facility] Last Admin: 08/19/18 17:21 Dose: 25 mg Losartan Potassium (Cozaar) 100 mg PO DAILY [facility] Last Admin: 08/19/18 09:02 Dose: Not Given Mupirocin (Bactroban Ointment) 0 gm TOP DAILY [facility] Last Admin: 08/19/18 09:11 Dose: Not Given Tamsulosin HCl (Flomax) 0.4 mg PO DAILY [facility] Last Admin: 08/19/18 09:02 Dose: Not Given Vitamin B Complex/Vit C/Folic Acid (Nephro-Poly) 1 tab PO 0800 [facility] Last Admin: 08/19/18 08:11 Dose: 1 tab - Labs Labs: 08/16/18 07:37 08/17/18 09:51 PT 12.5 SECONDS (9.7-12.2) H 08/04/18 11:56 INR 1.1 08/04/18 11:56 APTT 28 SECONDS (21-34) 08/04/18 11:56 - Constitutional Appears: No Acute Distress, Chronically Ill - Head Exam Head Exam: NORMOCEPHALIC - Eye Exam Eye Exam: Normal appearance - ENT Exam ENT Exam: Normal Exam - Neck Exam Neck Exam: Normal Inspection - Respiratory Exam Respiratory Exam: Clear to Ausculation Bilateral, NORMAL BREATHING PATTERN - Cardiovascular Exam Cardiovascular Exam: REGULAR RHYTHM - GI/Abdominal Exam GI & Abdominal Exam: Soft, Normal Bowel Sounds - Rectal Exam Rectal Exam: Deferred - Extremities Exam Additional comments: No ankle edema. Chronic change of the right great toe. - Back Exam Back Exam: NORMAL INSPECTION - Neurological Exam Neurological Exam: Alert, Awake, Oriented x3 - Psychiatric Exam Psychiatric exam: Anxious Assessment and Plan (1) Ischemic ulcer of heel with necrosis of muscle Status: Resolved (2) Gangrene of toe of right foot Status: Resolved (3) Right middle lobe pneumonia Status: Resolved (4) Uncontrolled diabetes mellitus Status: Chronic (5) ESRD on hemodialysis Status: Chronic
[2018-08-19] MEDS: (Lantus) Insulin Glargine, Recombinant SC SCH (22:22)
[2018-08-20] MEDS: (Novolog) Insulin Aspart, Recombinant 100 u/ml 10 ml vial SC SCH ×4 (07:33→21:49)
[2018-08-20] MEDS: Multivitamin Vitamin B Complex (Nephro-Vite) Tab PO SCH (08:16)
--- NOTE | 2018-08-20 13:43 | CP.PCM.PN ---
Subjective - Date & Time of Evaluation Date of Evaluation: 08/20/18 Time of Evaluation: 12:00 - Subjective Subjective: Podiatry Progress Note- Dr. Jenkins 78M seen and evaluated at bedside for bilateral heel deep tissue injuries and healed right hallux ulceration. Patient is seen resting comfortably in bed. Patient seen resting comfortably in bed, in NAD and awake. Patient seen with multipodus and dressing intact to the lower extremity. Patient has no pedal complaints. Denies nausea, fever, shortness of breath, chest pains or chills Objective - Vital Signs/Intake and Output Vital Signs (last 24 hours): Temp Pulse Resp BP Pulse Ox 97.8 F 67 20 156/68 H 96 08/20/18 07:19 08/20/18 07:19 08/20/18 07:19 08/20/18 07:19 08/20/18 07:19 Intake and Output: 08/20/18 08/20/18 06:59 18:59 Intake Total 370 Output Total 300 Balance 70 - Medications Medications: Current Medications Acetaminophen (Tylenol 325mg Tab) 650 mg PO Q6 PRN PRN Reason: Fever >100.4 F Acetaminophen (Tylenol 325mg Tab) 650 mg PO Q6 PRN PRN Reason: Pain, moderate (4-7) Amlodipine Besylate (Norvasc) 10 mg PO DAILY [facility] Last Admin: 08/20/18 09:21 Dose: 10 mg [facility] Last Admin: 08/20/18 08:16 Dose: 1,334 mg Carvedilol (Coreg) 6.25 mg PO DAILY [facility] Last Admin: 08/20/18 09:21 Dose: 6.25 mg Docusate Sodium (Colace) 100 mg PO BID [facility] Last Admin: 08/20/18 09:21 Dose: 100 mg Epoetin Chato (Procrit) 4,000 unit IV [facility] Last Admin: 08/19/18 09:36 Dose: 4,000 unit Glimepiride (Amaryl) 4 mg PO DAILY [facility] Last Admin: 08/20/18 09:22 Dose: 4 mg Vancomycin/Sodium Chloride (Vancomycin 1 Gm/Ns 200 Ml) 1 gm in 200 mls @ 133.333 mls/hr IVPB [facility]; Protocol Stop: 01/19/19 09:01 Last Admin: 08/19/18 13:11 Dose: 133.333 mls/hr Insulin Aspart (Novolog) 0 unit SC ACHS [facility]; Protocol Last Admin: 08/20/18 12:26 Dose: 2 units Insulin Glargine (Lantus) 40 unit SC HS [facility] Last Admin: 08/19/18 22:22 Dose: 40 u Lamotrigine (Lamictal) 25 mg PO BID [facility] Last Admin: 08/20/18 09:21 Dose: 25 mg Losartan Potassium (Cozaar) 100 mg PO DAILY [facility] Last Admin: 08/20/18 09:21 Dose: 100 mg Mupirocin (Bactroban Ointment) 0 gm TOP DAILY [facility] Last Admin: 08/20/18 09:22 Dose: 1 applic Tamsulosin HCl (Flomax) 0.4 mg PO DAILY [facility] Last Admin: 08/20/18 09:21 Dose: 0.4 mg Vitamin B Complex/Vit C/Folic Acid (Nephro-Poly) 1 tab PO 0800 [facility] Last Admin: 08/20/18 08:16 Dose: 1 tab - Labs Labs: 08/16/18 07:37 08/17/18 09:51 PT 12.5 SECONDS (9.7-12.2) H 08/04/18 11:56 INR 1.1 08/04/18 11:56 APTT 28 SECONDS (21-34) 08/04/18 11:56 - Constitutional Appears: Well, Non-toxic, No Acute Distress - Extremities Exam Extremities Exam: absent: Calf Tenderness Additional comments: Lower extremity focused exam: Vasc: DP/PT pulses palpable 2/4 B/L. Temperature gradient warm to cool B/L. CFT < 3 sec to all digits. No pedal edema noted Derm: Dry hyperkeratotic tissue noted to entirety of distal tip of right hallux with hyperpigmentation of digit and centrally located ulceration to plantar aspect of distal phalanx. Ulcer is circular, superficial ulceration at the distal hallux has epithelized over and completely healed. No abscess, no odor, no streaking , no erythemano active drainage, no malodor, no purulence, no fluctuance, no alexus wound erythema. No evidence of necrosis or gangrenous changes at present. Deep tissue injuries noted to bilateral posteroplantar heels. No breaks in skin or soft tissue of heels noted B/L. Neuro: protective sensation grossly intact Ortho: no tenderness to palpation of right great toe or bilateral plantar heels at site of deep tissue injuries - Neurological Exam Neurological Exam: Alert, Awake, Oriented x3 - Psychiatric Exam Psychiatric exam: Normal Affect, Normal Mood Assessment and Plan - Assessment and Plan (Free Text) Assessment: 78 year old male patient with healed right great toe ulceration and bilateral heel deep tissue injuries likely secondary to pressure -stable Plan: Patient seen and evaluated at bedside Afebrile, absent leukocytosis Foot x-rays show no acute osseous findings, no evidence of osteomyelitis Arterial duplex studies show no significant arterial insufficiency to lower extremities Right distal hallux ulceration completely healed with epithelized layer. Cleansed with saline solution, pat dry Cleansed left and right heel with saline solution, dressed with Optifoam Podiatry will continue with local wound care, no surgical intervention Offloading with multipodus boots. Multipodus boots are to be worn at all times in bed Wound culture; methicillin resistant staph aureus, cornybacterium Continue IV abx per ID recommendations No surgical intervention at this time. Will provide local wound care while in house Stable per podiatry standpoint Upon discharge, patient to follow up with Dr. Jenkins in clinic within 1 week
--- NOTE | 2018-08-20 15:08 | CP.PCM.PN ---
Subjective - Date & Time of Evaluation Date of Evaluation: 08/20/18 Time of Evaluation: 15:08 - Subjective Subjective: Nephrology Consultation Note: Assessment: Stable Rt foot cellulitis and Pneumonia Diabetic chronic Kidney Disease (E11.22) Hypertensive Chronic Kidney Disease (I12.0) End stage renal disease (N18.6) dependence on hemodialysis (Z99.2) (MWF) via AVF Anemia (D64.9), Hyperphosphatemia (E83.39), Secondary Hyperparathyroidism (E21.1), HTN (I12.0) Plan: Will plan for HD MWF schedule as ordered. Continue with Nephrovite 1 tab/day. PRBC as needed for anemia.on LESLI with dialysis as last Hb 10.3 Continue with phos binders, last phos level: 3.8 BP control with meds as ordered. Patient on RAAS ish Glycemic control, Dialysis consistent diet Further work up/management as per primary team Dose meds/antibiotics (if needed) for ESRD status. Avoid fleets enema/magnesium based laxatives. pt stable for d/c from renal perspective when planned. awaiting [facility] placement Thanks for allowing me to participate in care of your patient. Will follow patient with you. Please call if any Qs Dr Edwardo Valenzuela Office: [phone] Chief Complaint;Rt toe infection and cough HPI: Pt is a 78 year old male with PMHx of DM, HTN, HLD, ESRD on dialysis (MWF), CAD s/p CABG, AVR, BPH and Bipolar disorder presents to ED complaining of cough x 2 weeks and redness, swelling of the right big toe and admitted for tashi lulitis, pneumonia. Renal consult requested for ESRD management. last HD friday. otherwise feels usual health ROS: Cardiovascular: No chest pain. Pulmonary: No shortness of breath . Gastrointestinal: denies abdominal pain No nausea. No vomiting. Genitourinary: No pain while urinating. Denies blood in urine. All other negative except as mentioned in HPI Physical Examination: General Appearance: Comfortable, in no acute respiratory distress, co-operative . Vitals reviewed and noted as below Head; Atraumatic, normocephalic ENT: no ulcers no thrush. Tongue is midline. Oropharynx: no rash or ulcers. EYES: Pupils are equal, round and reactive to light accommodation. Eye muscles and extraocular movement intact. Sclera is anicteric. Neck; supple no lymphadenopathy, no thyromegaly or bruit Lungs: Normal respiratory rate/effort. Breath sounds bilateral equal and clear Heart: Normal rate. s1s2 normal. No rub or gallop. Extremities: no edema. No varicose veins. Neurological: Patient is alert, awake and oriented to person, place and time. No focal deficit. Strength bilateral appropriate and equal Skin: Warm and dry. Normal turgor. No rash. Palpitation: Normal elasticity for age Abdomen: Abdomen is soft. Bowel sounds +. There is no abdominal tenderness, no guarding/rigidity or organomegaly Psych: normal insight and normal affect/mood MSK: no joint tenderness or swelling. Digits and nails normal, no deformity : kidney or bladder not palpable Access: AVF Labs/imaging reviewed. Past medical history, past surgical history, family history, social history, allergy reviewed and noted as below Family Hx: no hx of CKD. Non contributory Objective - Vital Signs/Intake and Output Vital Signs (last 24 hours): Temp Pulse Resp BP Pulse Ox 97.8 F 67 20 156/68 H 96 08/20/18 07:19 08/20/18 07:19 08/20/18 07:19 08/20/18 07:19 08/20/18 07:19 Intake and Output: 08/20/18 08/20/18 06:59 18:59 Intake Total 370 Output Total 300 Balance 70 - Medications Medications: Current Medications Acetaminophen (Tylenol 325mg Tab) 650 mg PO Q6 PRN PRN Reason: Fever >100.4 F Acetaminophen (Tylenol 325mg Tab) 650 mg PO Q6 PRN PRN Reason: Pain, moderate (4-7) Amlodipine Besylate (Norvasc) 10 mg PO DAILY [facility] Last Admin: 08/20/18 09:21 Dose: 10 mg Calcium Acetate (Phoslo) 1,334 mg PO BIDCC [facility] Last Admin: 08/20/18 08:16 Dose: 1,334 mg Carvedilol (Coreg) 6.25 mg PO DAILY [facility] Last Admin: 08/20/18 09:21 Dose: 6.25 mg Docusate Sodium (Colace) 100 mg PO BID [facility] Last Admin: 08/20/18 09:21 Dose: 100 mg Epoetin Chato (Procrit) 4,000 unit IV MWF [facility] Last Admin: 08/19/18 09:36 Dose: 4,000 unit Glimepiride (Amaryl) 4 mg PO DAILY [facility] Last Admin: 08/20/18 09:22 Dose: 4 mg Vancomycin/Sodium Chloride (Vancomycin 1 Gm/Ns 200 Ml) 1 gm in 200 mls @ 133.333 mls/hr IVPB MWF [facility]; Protocol Stop: 08/22/18 09:01 Last Admin: 08/19/18 13:11 Dose: 133.333 mls/hr Insulin Aspart (Novolog) 0 unit SC ACHS [facility]; Protocol Last Admin: 08/20/18 12:26 Dose: 2 units Insulin Glargine (Lantus) 40 unit SC [facility] Last Admin: 08/19/18 22:22 Dose: 40 u Lamotrigine (Lamictal) 25 mg PO BID [facility] Last Admin: 08/20/18 09:21 Dose: 25 mg Losartan Potassium (Cozaar) 100 mg PO DAILY [facility] Last Admin: 08/20/18 09:21 Dose: 100 mg Mupirocin (Bactroban Ointment) 0 gm TOP DAILY [facility] Last Admin: 08/20/18 09:22 Dose: 1 applic Tamsulosin HCl (Flomax) 0.4 mg PO DAILY [facility] Last Admin: 08/20/18 09:21 Dose: 0.4 mg Vitamin B Complex/Vit C/Folic Acid (Nephro-Poly) 1 tab PO 0800 [facility] Last Admin: 08/20/18 08:16 Dose: 1 tab - Labs Labs: 08/16/18 07:37 08/17/18 09:51 PT 12.5 SECONDS (9.7-12.2) H 08/04/18 11:56 INR 1.1 08/04/18 11:56 APTT 28 SECONDS (21-34) 08/04/18 11:56
--- NOTE | 2018-08-20 18:13 | CP.PCM.PN ---
Subjective - Date & Time of Evaluation Date of Evaluation: 08/20/18 Time of Evaluation: 18:10 - Subjective Subjective: Patient has no complaint of pain, SOB, cough. Afebrile. Right great toe ulcer healed. Objective - Vital Signs/Intake and Output Vital Signs (last 24 hours): Temp Pulse Resp BP Pulse Ox 98.3 F 67 20 127/66 98 08/20/18 15:00 08/20/18 15:00 08/20/18 15:00 08/20/18 15:00 08/20/18 15:00 Intake and Output: 08/20/18 08/20/18 06:59 18:59 Intake Total 370 Output Total 300 Balance 70 - Medications Medications: Current Medications Acetaminophen (Tylenol 325mg Tab) 650 mg PO Q6 PRN PRN Reason: Fever >100.4 F Acetaminophen (Tylenol 325mg Tab) 650 mg PO Q6 PRN PRN Reason: Pain, moderate (4-7) Amlodipine Besylate (Norvasc) 10 mg PO DAILY [facility] Last Admin: 08/20/18 09:21 Dose: 10 mg [facility] Last Admin: 08/20/18 17:17 Dose: 1,334 mg Carvedilol (Coreg) 6.25 mg PO DAILY [facility] Last Admin: 08/20/18 09:21 Dose: 6.25 mg Docusate Sodium (Colace) 100 mg PO BID [facility] Last Admin: 08/20/18 17:17 Dose: 100 mg Epoetin Chato (Procrit) 4,000 unit IV [facility] Last Admin: 08/19/18 09:36 Dose: 4,000 unit Glimepiride (Amaryl) 4 mg PO DAILY [facility] Last Admin: 08/20/18 09:22 Dose: 4 mg Vancomycin/Sodium Chloride (Vancomycin 1 Gm/Ns 200 Ml) 1 gm in 200 mls @ 133.333 mls/hr IVPB [facility] [place]; Protocol Stop: 08/22/18 09:01 Last Admin: 08/19/18 13:11 Dose: 133.333 mls/hr Insulin Aspart (Novolog) 0 unit SC [facility]; Protocol Last Admin: 08/20/18 17:16 Dose: 3 units Insulin Glargine (Lantus) 40 unit SC [facility] Last Admin: 08/19/18 22:22 Dose: 40 u Lamotrigine (Lamictal) 25 mg PO BID [facility] Last Admin: 08/20/18 09:21 Dose: 25 mg Losartan Potassium (Cozaar) 100 mg PO DAILY [facility] Last Admin: 08/20/18 09:21 Dose: 100 mg Mupirocin (Bactroban Ointment) 0 gm TOP DAILY [facility] Last Admin: 08/20/18 09:22 Dose: 1 applic Tamsulosin HCl (Flomax) 0.4 mg PO DAILY [facility] Last Admin: 08/20/18 09:21 Dose: 0.4 mg Vitamin B Complex/Vit C/Folic Acid (Nephro-Poly) 1 tab PO 0800 [facility] Last Admin: 08/20/18 08:16 Dose: 1 tab - Labs Labs: 08/16/18 07:37 08/17/18 09:51 PT 12.5 SECONDS (9.7-12.2) H 08/04/18 11:56 INR 1.1 08/04/18 11:56 APTT 28 SECONDS (21-34) 08/04/18 11:56 - Constitutional Appears: No Acute Distress, Chronically Ill - Head Exam Head Exam: NORMOCEPHALIC - Eye Exam Eye Exam: Normal appearance - ENT Exam ENT Exam: Normal Exam - Neck Exam Neck Exam: Normal Inspection - Respiratory Exam Respiratory Exam: Clear to Ausculation Bilateral, NORMAL BREATHING PATTERN - Cardiovascular Exam Cardiovascular Exam: REGULAR RHYTHM - GI/Abdominal Exam GI & Abdominal Exam: Soft, Normal Bowel Sounds - Rectal Exam Rectal Exam: Deferred - Exam Exam: NORMAL INSPECTION - Extremities Exam Additional comments: Healed right great toe ulcer. - Back Exam Back Exam: NORMAL INSPECTION - Neurological Exam Neurological Exam: Alert, Awake, Oriented x3 - Psychiatric Exam Psychiatric exam: Anxious Assessment and Plan (1) Ischemic ulcer of heel with necrosis of muscle Status: Resolved (2) Gangrene of toe of right foot Status: Resolved (3) Right middle lobe pneumonia Status: Resolved (4) Uncontrolled diabetes mellitus Status: Chronic (5) ESRD on hemodialysis Status: Chronic
[2018-08-20] MEDS: (Lantus) Insulin Glargine, Recombinant SC SCH (21:51)
[2018-08-21] MEDS: (Novolog) Insulin Aspart, Recombinant 100 u/ml 10 ml vial SC SCH ×4 (08:06→22:04)
[2018-08-21] MEDS: Multivitamin Vitamin B Complex (Nephro-Vite) Tab PO SCH (08:17)
[2018-08-21] MEDS: Vancomycin 1 gm/NS 200 ml 1 GM/200 ML BAG IVPB SCH (09:45)
--- NOTE | 2018-08-21 12:14 | CP.PCM.PN ---
Subjective - Date & Time of Evaluation Date of Evaluation: 08/21/18 Time of Evaluation: 12:12 - Subjective Subjective: POdiatry PRogress Note Rodriguez Saleem 78M seen and evaluated at bedside with attending Dr. Jenkins for bilateral heel deep tissue injuries and healed right hallux ulceration . Patient is seen resting comfortably in bed, in NAD, and awake. Patient reports feeling good. Denies acute overnight events. Denies of foot pain or calf pain. Dressing clean, dry and intact. Denies nausea, fever, shortness of breath, chest pains or chills. No other pedal complaints. Objective - Vital Signs/Intake and Output Vital Signs (last 24 hours): Temp Pulse Resp BP Pulse Ox 97.4 F L 68 20 147/71 98 08/21/18 07:31 08/21/18 07:31 08/21/18 07:31 08/21/18 07:31 08/21/18 07:31 Intake and Output: 08/21/18 08/21/18 06:59 18:59 Intake Total 520 Balance 520 - Medications Medications: Current Medications Acetaminophen (Tylenol 325mg Tab) 650 mg PO Q6 PRN PRN Reason: Fever >100.4 F Acetaminophen (Tylenol 325mg Tab) 650 mg PO Q6 PRN PRN Reason: Pain, moderate (4-7) Amlodipine Besylate (Norvasc) 10 mg PO DAILY [facility] Last Admin: 08/21/18 10:07 Dose: 10 mg [facility] ([facility] Last Admin: 08/21/18 08:17 Dose: 1,334 mg Carvedilol (Coreg) 6.25 mg PO DAILY [facility] Last Admin: 08/21/18 10:07 Dose: 6.25 mg Docusate Sodium (Colace) 100 mg PO BID [facility] Last Admin: 08/21/18 10:07 Dose: 100 mg Epoetin Chato (Procrit) 4,000 unit IV [facility] [place] Last Admin: 08/19/18 09:36 Dose: 4,000 unit Glimepiride (Amaryl) 4 mg PO DAILY [facility] Last Admin: 08/21/18 10:06 Dose: 4 mg Vancomycin HCl 500 mg/ Sodium (Chloride) 100 mls @ 100 mls/hr IVPB [facility] [place]; Protocol Insulin Aspart (Novolog) 0 unit SC [facility]; Protocol Last Admin: 08/21/18 11:36 Dose: Not Given Insulin Glargine (Lantus) 40 unit SC HS [facility] Last Admin: 08/20/18 21:51 Dose: 40 u Lamotrigine (Lamictal) 25 mg PO BID [facility] Last Admin: 08/21/18 10:07 Dose: 25 mg Losartan Potassium (Cozaar) 100 mg PO DAILY [facility] Last Admin: 08/21/18 10:06 Dose: 100 mg Mupirocin (Bactroban Ointment) 0 gm TOP DAILY [facility] Last Admin: 08/21/18 10:11 Dose: 1 applic Tamsulosin HCl (Flomax) 0.4 mg PO DAILY [facility] Last Admin: 08/21/18 10:07 Dose: 0.4 mg Vitamin B Complex/Vit C/Folic Acid (Nephro-Poly) 1 tab PO 0800 [facility] Last Admin: 08/21/18 08:17 Dose: 1 tab - Labs Labs: 08/16/18 07:37 08/17/18 09:51 PT 12.5 SECONDS (9.7-12.2) H 08/04/18 11:56 INR 1.1 08/04/18 11:56 APTT 28 SECONDS (21-34) 08/04/18 11:56 - Constitutional Appears: Well, Non-toxic, No Acute Distress - Extremities Exam Extremities Exam: absent: Calf Tenderness Additional comments: Lower extremity focused exam: Vasc: DP/PT pulses palpable 2/4 B/L. Temperature gradient warm to cool B/L. CFT < 3 sec to all digits. No pedal edema noted Derm: Dry hyperkeratotic tissue noted to entirety of distal tip of right hallux with hyperpigmentation of digit and centrally located ulceration to plantar aspect of distal phalanx has epithelized over and completely healed. No abscess, no odor, no streaking , no erythemano active drainage, no malodor, no purulence, no fluctuance, no alexus wound erythema. No evidence of necrosis or gangrenous changes at present. Deep tissue injuries noted to bilateral posteroplantar heels. No breaks in skin or soft tissue of heels noted B/L. Neuro: protective sensation grossly intact Ortho: no tenderness to palpation of right great toe or bilateral plantar heels at site of deep tissue injuries - Neurological Exam Neurological Exam: Alert, Awake - Psychiatric Exam Psychiatric exam: Normal Affect, Normal Mood Assessment and Plan - Assessment and Plan (Free Text) Assessment: 78 year old male patient with healed right great toe ulceration and bilateral heel deep tissue injuries likely secondary to pressure -stable with no changes Plan: Patient seen and evaluated with attending Dr. Jenkins at bedside Afebrile, absent leukocytosis Foot x-rays show no acute osseous findings, no evidence of osteomyelitis Arterial duplex studies show no significant arterial insufficiency to lower extremities Right distal hallux ulceration completely healed with epithelized layer. Cleansed with saline solution, pat dry Cleansed left and right heel with saline solution, dressed with Optifoam Podiatry will continue with local wound care, no surgical intervention Offloading with multipodus boots. Multipodus boots are to be worn at all times in bed Wound culture; methicillin resistant staph aureus, cornybacterium Continue abx per ID recommendations No surgical intervention at this time. Will provide local wound care while in house Stable per podiatry standpoint Upon discharge, patient to follow up with Dr. Jenkins in clinic within 1 week
--- NOTE | 2018-08-21 13:12 | CP.PCM.PN ---
Subjective - Date & Time of Evaluation Date of Evaluation: 08/21/18 Time of Evaluation: 13:12 - Subjective Subjective: Nephrology Consultation Note: Assessment: Stable Rt foot cellulitis and Pneumonia Diabetic chronic Kidney Disease (E11.22) Hypertensive Chronic Kidney Disease (I12.0) End stage renal disease (N18.6) dependence on hemodialysis (Z99.2) (MWF) via AVF Anemia (D64.9), Hyperphosphatemia (E83.39), Secondary Hyperparathyroidism (E21.1), HTN (I12.0) Plan: Will plan for HD MWF schedule as ordered. Continue with Nephrovite 1 tab/day. PRBC as needed for anemia.on LESLI with dialysis as last Hb 10.3 Continue with phos binders, last phos level: 3.8 BP control with meds as ordered. Patient on RAAS ish Glycemic control, Dialysis consistent diet Further work up/management as per primary team Dose meds/antibiotics (if needed) for ESRD status. Avoid fleets enema/magnesium based laxatives. pt stable for d/c from renal perspective when planned. awaiting [facility] placement Thanks for allowing me to participate in care of your patient. Will follow patient with you. Please call if any Qs Dr Edwardo Valenzuela Office: [phone] Chief Complaint;Rt toe infection and cough HPI: Pt is a 78 year old male with PMHx of DM, HTN, HLD, ESRD on dialysis (MWF), CAD s/p CABG, AVR, BPH and Bipolar disorder presents to ED complaining of cough x 2 weeks and redness, swelling of the right big toe and admitted for tashi lulitis, pneumonia. Renal consult requested for ESRD management. last HD friday. otherwise feels usual health ROS: Cardiovascular: No chest pain. Pulmonary: No shortness of breath . Gastrointestinal: denies abdominal pain No nausea. No vomiting. Genitourinary: No pain while urinating. Denies blood in urine. All other negative except as mentioned in HPI Physical Examination: General Appearance: Comfortable, in no acute respiratory distress, co-operative . Vitals reviewed and noted as below Head; Atraumatic, normocephalic ENT: no ulcers no thrush. Tongue is midline. Oropharynx: no rash or ulcers. EYES: Pupils are equal, round and reactive to light accommodation. Eye muscles and extraocular movement intact. Sclera is anicteric. Neck; supple no lymphadenopathy, no thyromegaly or bruit Lungs: Normal respiratory rate/effort. Breath sounds bilateral equal and clear Heart: Normal rate. s1s2 normal. No rub or gallop. Extremities: no edema. No varicose veins. Neurological: Patient is alert, awake and oriented to person, place and time. No focal deficit. Strength bilateral appropriate and equal Skin: Warm and dry. Normal turgor. No rash. Palpitation: Normal elasticity for age Abdomen: Abdomen is soft. Bowel sounds +. There is no abdominal tenderness, no guarding/rigidity or organomegaly Psych: normal insight and normal affect/mood MSK: no joint tenderness or swelling. Digits and nails normal, no deformity : kidney or bladder not palpable Access: AVF Labs/imaging reviewed. Past medical history, past surgical history, family history, social history, allergy reviewed and noted as below Family Hx: no hx of CKD. Non contributory Objective - Vital Signs/Intake and Output Vital Signs (last 24 hours): Temp Pulse Resp BP Pulse Ox 97.4 F L 68 20 147/71 98 08/21/18 07:31 08/21/18 07:31 08/21/18 07:31 08/21/18 07:31 08/21/18 07:31 Intake and Output: 08/21/18 08/21/18 06:59 18:59 Intake Total 520 Balance 520 - Medications Medications: Current Medications Acetaminophen (Tylenol 325mg Tab) 650 mg PO Q6 PRN PRN Reason: Fever >100.4 F Acetaminophen (Tylenol 325mg Tab) 650 mg PO Q6 PRN PRN Reason: Pain, moderate (4-7) Amlodipine Besylate (Norvasc) 10 mg PO DAILY [facility] Last Admin: 08/21/18 10:07 Dose: 10 mg Calcium Acetate (Phoslo) 1,334 mg PO BIDCC [facility] Last Admin: 08/21/18 08:17 Dose: 1,334 mg Carvedilol (Coreg) 6.25 mg PO DAILY [facility] Last Admin: 08/21/18 10:07 Dose: 6.25 mg Docusate Sodium (Colace) 100 mg PO BID [facility] Last Admin: 08/21/18 10:07 Dose: 100 mg Epoetin Chato (Procrit) 4,000 unit IV MWF [facility] Last Admin: 08/19/18 09:36 Dose: 4,000 unit Glimepiride (Amaryl) 4 mg PO DAILY [facility] Last Admin: 08/21/18 10:06 Dose: 4 mg Vancomycin HCl 500 mg/ Sodium (Chloride) 100 mls @ 100 mls/hr IVPB MWF [facility]; Protocol Insulin Aspart (Novolog) 0 unit SC ACHS [facility]; Protocol Last Admin: 08/21/18 11:36 Dose: Not Given Insulin Glargine (Lantus) 40 unit SC HS [facility] Last Admin: 08/20/18 21:51 Dose: 40 u Lamotrigine (Lamictal) 25 mg PO BID [facility] Last Admin: 08/21/18 10:07 Dose: 25 mg Losartan Potassium (Cozaar) 100 mg PO DAILY [facility] Last Admin: 08/21/18 10:06 Dose: 100 mg Mupirocin (Bactroban Ointment) 0 gm TOP DAILY [facility] Last Admin: 08/21/18 10:11 Dose: 1 applic Tamsulosin HCl (Flomax) 0.4 mg PO DAILY [facility] Last Admin: 08/21/18 10:07 Dose: 0.4 mg Vitamin B Complex/Vit C/Folic Acid (Nephro-Poly) 1 tab PO 0800 [facility] Last Admin: 08/21/18 08:17 Dose: 1 tab - Labs Labs: 08/16/18 07:37 08/17/18 09:51 PT 12.5 SECONDS (9.7-12.2) H 08/04/18 11:56 INR 1.1 08/04/18 11:56 APTT 28 SECONDS (21-34) 08/04/18 11:56
[2018-08-21] MEDS: EPOETIN ALFA 4,000 UNIT/ML ML Dialysis IV SCH (16:23)
[2018-08-21 20:26] LABS: BASO # 0.1 K/uL (0.0-0.2); BASO % 1.5 % (0.0-2.0); EOS # 0.2 K/uL (0.0-0.7); EOS % 2.2 % (0.0-4.0); HEMOGLOBIN 11.7 g/dL (12.0-18.0); LYMPH # 1.5 K/uL (1.0-4.3); LYMPH % 19.8 % (20.0-40.0); MEAN CORPUSCULAR HEMOGLOBIN 28.9 pg (27.0-31.0); MEAN CORPUSCULAR HGB CONC 33.2 g/dL (33.0-37.0); MEAN PLATELET VOLUME 8.7 fL (7.2-11.7); MONO # 0.8 K/uL (0.0-0.8); MONO % 10.1 % (0.0-10.0); NEUT # 5.1 K/uL (1.8-7.0); NEUT % 66.4 % (50.0-75.0); NRBC % 0.1 % (0.0-2.0); RBC 4.05 Mil/uL (4.40-5.90); RED CELL DISTRIBUTION WIDTH 16.8 % (11.5-14.5); WHITE BLOOD COUNT 7.7 K/uL (4.8-10.8)
[2018-08-21 20:57] LABS: ALB/GLOB RATIO 1.1 (1.0-2.1); ALBUMIN 3.8 g/dL (3.5-5.0); CALCIUM 9.2 mg/dl (8.6-10.4)
--- NOTE | 2018-08-21 21:53 | CP.PCM.PN ---
Subjective - Date & Time of Evaluation Date of Evaluation: 08/21/18 Time of Evaluation: 12:50 - Subjective Subjective: Patient has no complaint. BP in the low side today. Objective - Vital Signs/Intake and Output Vital Signs (last 24 hours): Temp Pulse Resp BP Pulse Ox 98.1 F 71 20 93/51 L 99 08/21/18 17:22 08/21/18 17:22 08/21/18 17:22 08/21/18 17:22 08/21/18 17:22 - Medications Medications: Current Medications Acetaminophen (Tylenol 325mg Tab) 650 mg PO Q6 PRN PRN Reason: Fever >100.4 F Acetaminophen (Tylenol 325mg Tab) 650 mg PO Q6 PRN PRN Reason: Pain, moderate (4-7) Amlodipine Besylate (Norvasc) 10 mg PO DAILY [facility] Last Admin: 08/21/18 10:07 Dose: 10 mg [facility] Last Admin: 08/21/18 17:36 Dose: 1,334 mg Carvedilol (Coreg) 6.25 mg PO DAILY [facility] Last Admin: 08/21/18 10:07 Dose: 6.25 mg Docusate Sodium (Colace) 100 mg PO BID [facility] Last Admin: 08/21/18 17:36 Dose: 100 mg Epoetin Chato (Procrit) 4,000 unit IV [facility] [place] Last Admin: 08/21/18 16:23 Dose: 4,000 unit Glimepiride (Amaryl) 4 mg PO DAILY [facility] Last Admin: 08/21/18 10:06 Dose: 4 mg Vancomycin HCl 500 mg/ Sodium (Chloride) 100 mls @ 100 mls/hr IVPB [facility] [place]; Protocol Insulin Aspart (Novolog) 0 unit SC [facility]; Protocol Last Admin: 08/21/18 17:29 Dose: Not Given Insulin Glargine (Lantus) 40 unit SC HS [facility] Last Admin: 08/20/18 21:51 Dose: 40 u Lamotrigine (Lamictal) 25 mg PO BID [facility] Last Admin: 08/21/18 17:36 Dose: 25 mg Losartan Potassium (Cozaar) 100 mg PO DAILY [facility] Last Admin: 08/21/18 10:06 Dose: 100 mg Mupirocin (Bactroban Ointment) 0 gm TOP DAILY [facility] Last Admin: 08/21/18 10:11 Dose: 1 applic Tamsulosin HCl (Flomax) 0.4 mg PO DAILY [facility] Last Admin: 08/21/18 10:07 Dose: 0.4 mg Vitamin B Complex/Vit C/Folic Acid (Nephro-Poly) 1 tab PO 0800 [facility] Last Admin: 08/21/18 08:17 Dose: 1 tab - Labs Labs: 08/21/18 20:13 08/21/18 20:13 PT 12.5 SECONDS (9.7-12.2) H 08/04/18 11:56 INR 1.1 08/04/18 11:56 APTT 28 SECONDS (21-34) 08/04/18 11:56 - Constitutional Appears: No Acute Distress, Chronically Ill - Head Exam Head Exam: NORMAL INSPECTION - Eye Exam Eye Exam: Normal appearance Pupil Exam: NORMAL ACCOMODATION - ENT Exam ENT Exam: Normal Exam - Neck Exam Neck Exam: Normal Inspection - Respiratory Exam Respiratory Exam: Clear to Ausculation Bilateral, NORMAL BREATHING PATTERN - Cardiovascular Exam Cardiovascular Exam: REGULAR RHYTHM - GI/Abdominal Exam GI & Abdominal Exam: Soft, Normal Bowel Sounds - Rectal Exam Rectal Exam: Deferred - Extremities Exam Additional comments: Healed right great toe ulcer. - Back Exam Back Exam: NORMAL INSPECTION - Neurological Exam Neurological Exam: Alert, Awake, Oriented x3 - Psychiatric Exam Psychiatric exam: Anxious - Skin Skin Exam: Dry, Intact, Warm Assessment and Plan (1) Ischemic ulcer of heel with necrosis of muscle Status: Resolved (2) Gangrene of toe of right foot Status: Resolved (3) Right middle lobe pneumonia Status: Resolved (4) Uncontrolled diabetes mellitus Status: Chronic (5) ESRD on hemodialysis Status: Chronic
[2018-08-21] MEDS: (Lantus) Insulin Glargine, Recombinant SC SCH (22:04)
[2018-08-22] MEDS: (Novolog) Insulin Aspart, Recombinant 100 u/ml 10 ml vial SC SCH ×4 (07:18→21:34)
[2018-08-22] MEDS: Multivitamin Vitamin B Complex (Nephro-Vite) Tab PO SCH (08:24)
--- NOTE | 2018-08-22 12:58 | CP.PCM.PN ---
Subjective - Date & Time of Evaluation Date of Evaluation: 08/22/18 Time of Evaluation: 12:57 - Subjective Subjective: Nephrology Consultation Note: Assessment: Stable Rt foot cellulitis and Pneumonia Diabetic chronic Kidney Disease (E11.22) Hypertensive Chronic Kidney Disease (I12.0) End stage renal disease (N18.6) dependence on hemodialysis (Z99.2) (MWF) via AVF Anemia (D64.9), Hyperphosphatemia (E83.39), Secondary Hyperparathyroidism (E21.1), HTN (I12.0) Plan: HD MWF schedule as ordered. Continue with Nephrovite 1 tab/day. PRBC as needed for anemia.on LESLI with dialysis as last Hb 10.3 Continue with phos binders BP control with meds as ordered. Patient on RAAS ish Glycemic control, Dialysis consistent diet Further work up/management as per primary team Dose meds/antibiotics (if needed) for ESRD status. Avoid fleets enema/magnesium based laxatives. pt stable for d/c from renal perspective when planned. awaiting [facility] placement S: seen and examined no events o/n Physical Examination: General Appearance: Comfortable, in no acute respiratory distress, co-operative . Vitals reviewed and noted as below Head; Atraumatic, normocephalic ENT: no ulcers no thrush. Tongue is midline. Oropharynx: no rash or ulcers. EYES: Pupils are equal, round and reactive to light accommodation. Eye muscles and extraocular movement intact. Sclera is anicteric. Neck; supple no lymphadenopathy, no thyromegaly or bruit Lungs: Normal respiratory rate/effort. Breath sounds bilateral equal and clear Heart: Normal rate. s1s2 normal. No rub or gallop. Extremities: no edema. No varicose veins. Neurological: Patient is alert, awake and oriented to person, place and time. No focal deficit. Strength bilateral appropriate and equal Skin: Warm and dry. Normal turgor. No rash. Palpitation: Normal elasticity for age Abdomen: Abdomen is soft. Bowel sounds +. There is no abdominal tenderness, no guarding/rigidity or organomegaly Psych: normal insight and normal affect/mood MSK: no joint tenderness or swelling. Digits and nails normal, no deformity : kidney or bladder not palpable Access: AVF Labs/imaging reviewed. Past medical history, past surgical history, family history, social history, allergy reviewed and noted as below Family Hx: no hx of CKD. Non contributory Objective - Vital Signs/Intake and Output Vital Signs (last 24 hours): Temp Pulse Resp BP Pulse Ox 98.2 F 76 20 122/62 96 08/22/18 07:54 08/22/18 09:47 08/22/18 07:54 08/22/18 09:47 08/22/18 07:54 Intake and Output: 08/22/18 08/22/18 06:59 18:59 Intake Total 250 Output Total 150 Balance 100 - Medications Medications: Current Medications Acetaminophen (Tylenol 325mg Tab) 650 mg PO Q6 PRN PRN Reason: Fever >100.4 F Acetaminophen (Tylenol 325mg Tab) 650 mg PO Q6 PRN PRN Reason: Pain, moderate (4-7) Amlodipine Besylate (Norvasc) 10 mg PO DAILY [facility] Last Admin: 08/22/18 09:41 Dose: 10 mg [facility]cium [facility] ([facility]) [facility] Last Admin: 08/22/18 08:24 Dose: 1,334 mg Carvedilol (Coreg) 6.25 mg PO DAILY [facility] Last Admin: 08/22/18 09:41 Dose: 6.25 mg Docusate Sodium (Colace) 100 mg PO BID [facility] Last Admin: 08/22/18 09:41 Dose: 100 mg Epoetin Chato (Procrit) 4,000 unit IV [facility] [place] Last Admin: 08/21/18 16:23 Dose: 4,000 unit Glimepiride (Amaryl) 4 mg PO DAILY [facility] Last Admin: 08/22/18 09:41 Dose: 4 mg Vancomycin HCl 500 mg/ Sodium (Chloride) 100 mls @ 100 mls/hr IVPB [facility]; Protocol Insulin Aspart (Novolog) 0 unit SC [facility]; Protocol Last Admin: 08/22/18 07:18 Dose: Not Given Insulin Glargine (Lantus) 40 unit SC HS [facility] Last Admin: 08/21/18 22:04 Dose: 40 u Lamotrigine (Lamictal) 25 mg PO BID [facility] Last Admin: 08/22/18 09:43 Dose: 25 mg Losartan Potassium (Cozaar) 100 mg PO DAILY [facility] Last Admin: 08/22/18 09:41 Dose: 100 mg Mupirocin (Bactroban Ointment) 0 gm TOP DAILY [facility] Last Admin: 08/22/18 09:47 Dose: Not Given Tamsulosin HCl (Flomax) 0.4 mg PO DAILY [facility] Last Admin: 08/22/18 09:41 Dose: 0.4 mg Vitamin B Complex/Vit C/Folic Acid (Nephro-Poly) 1 tab PO 0800 [facility] Last Admin: 08/22/18 08:24 Dose: 1 tab - Labs Labs: 08/21/18 20:13 08/21/18 20:13 PT 12.5 SECONDS (9.7-12.2) H 08/04/18 11:56 INR 1.1 08/04/18 11:56 APTT 28 SECONDS (21-34) 08/04/18 11:56
[2018-08-22] MEDS: (Lantus) Insulin Glargine, Recombinant SC SCH (21:33)
--- NOTE | 2018-08-23 00:10 | CP.PCM.PN ---
Subjective - Date & Time of Evaluation Date of Evaluation: 08/22/18 Time of Evaluation: 16:30 - Subjective Subjective: Patient's foot culture revealed MRSA. Patient is on Bacitracin ointment and Vancomycin IV with hemodialysis. Objective - Vital Signs/Intake and Output Vital Signs (last 24 hours): Temp Pulse Resp BP Pulse Ox 97.6 F 71 20 129/62 97 08/22/18 15:00 08/22/18 15:00 08/22/18 15:00 08/22/18 15:00 08/22/18 15:00 Intake and Output: 08/22/18 08/23/18 18:59 06:59 Intake Total 500 Output Total 200 Balance 300 - Medications Medications: Current Medications Acetaminophen (Tylenol 325mg Tab) 650 mg PO Q6 PRN PRN Reason: Fever >100.4 F Acetaminophen (Tylenol 325mg Tab) 650 mg PO Q6 PRN PRN Reason: Pain, moderate (4-7) Amlodipine Besylate (Norvasc) 10 mg PO DAILY [facility] Last Admin: 08/22/18 09:41 Dose: 10 mg [facility] ([facility] Last Admin: 08/22/18 17:23 Dose: 1,334 mg Carvedilol (Coreg) 6.25 mg PO DAILY [facility] Last Admin: 08/22/18 09:41 Dose: 6.25 mg Docusate Sodium (Colace) 100 mg PO BID [facility] Last Admin: 08/22/18 17:24 Dose: 100 mg Epoetin Chato (Procrit) 4,000 [place] [facility] [place]imepiride (Amaryl) 4 mg PO DAILY [facility] Last Admin: 08/22/18 09:41 Dose: 4 mg Vancomycin HCl 500 mg/ Sodium (Chloride) 100 mls @ 100 mls/hr [place] [facility] [place] Protocol Insulin Aspart (Novolog) 0 unit SC ACHS [facility]; Protocol Last Admin: 08/22/18 21:34 Dose: Not Given Insulin Glargine (Lantus) 40 unit SC HS [facility] Last Admin: 08/22/18 21:33 Dose: 40 u Lamotrigine (Lamictal) 25 mg PO BID [facility] Last Admin: 08/22/18 17:24 Dose: 25 mg Losartan Potassium (Cozaar) 100 mg PO DAILY [facility] Last Admin: 08/22/18 09:41 Dose: 100 mg Mupirocin (Bactroban Ointment) 0 gm TOP DAILY [facility] Last Admin: 08/22/18 09:47 Dose: Not Given Tamsulosin HCl (Flomax) 0.4 mg PO DAILY [facility] Last Admin: 08/22/18 09:41 Dose: 0.4 mg Vitamin B Complex/Vit C/Folic Acid (Nephro-Poly) 1 tab PO 0800 [facility] Last Admin: 08/22/18 08:24 Dose: 1 tab - Labs Labs: 08/21/18 20:13 08/21/18 20:13 PT 12.5 SECONDS (9.7-12.2) H 08/04/18 11:56 INR 1.1 08/04/18 11:56 APTT 28 SECONDS (21-34) 08/04/18 11:56 - Constitutional Appears: No Acute Distress, Chronically Ill - Head Exam Head Exam: NORMAL INSPECTION - Eye Exam Eye Exam: Normal appearance - ENT Exam ENT Exam: Normal Exam - Neck Exam Neck Exam: Normal Inspection - Respiratory Exam Respiratory Exam: Clear to Ausculation Bilateral, NORMAL BREATHING PATTERN - Cardiovascular Exam Cardiovascular Exam: REGULAR RHYTHM - GI/Abdominal Exam GI & Abdominal Exam: Soft, Normal Bowel Sounds - Rectal Exam Rectal Exam: Deferred - Exam Exam: NORMAL INSPECTION - Extremities Exam Additional comments: Healed right great toe ulcer. - Back Exam Back Exam: NORMAL INSPECTION - Neurological Exam Neurological Exam: Alert, Awake, Oriented x3 - Psychiatric Exam Psychiatric exam: Anxious Assessment and Plan (1) Ischemic ulcer of heel with necrosis of muscle Status: Resolved (2) Gangrene of toe of right foot Status: Resolved (3) Right middle lobe pneumonia Status: Resolved (4) Uncontrolled diabetes mellitus Status: Chronic (5) ESRD on hemodialysis Status: Chronic
[2018-08-23] MEDS: (Novolog) Insulin Aspart, Recombinant 100 u/ml 10 ml vial SC SCH ×4 (07:28→21:20)
[2018-08-23] MEDS: Multivitamin Vitamin B Complex (Nephro-Vite) Tab PO SCH (08:19)
--- NOTE | 2018-08-23 12:49 | CP.PCM.PN ---
Subjective - Date & Time of Evaluation Date of Evaluation: 08/23/18 Time of Evaluation: 12:48 - Subjective Subjective: Nephrology Consultation Note: Assessment: Stable Rt foot cellulitis and Pneumonia Diabetic chronic Kidney Disease (E11.22) Hypertensive Chronic Kidney Disease (I12.0) End stage renal disease (N18.6) dependence on hemodialysis (Z99.2) (MWF) via AVF Anemia (D64.9), Hyperphosphatemia (E83.39), Secondary Hyperparathyroidism (E21.1), HTN (I12.0) Plan: HD MWF schedule as ordered. Continue with Nephrovite 1 tab/day. PRBC as needed for anemia. cont epogen Continue with phos binders BP control with meds as ordered. Patient on RAAS ish Glycemic control, Dialysis consistent diet Further work up/management as per primary team Dose meds/antibiotics (if needed) for ESRD status. Avoid fleets enema/magnesium based laxatives. awaiting claudine S: seen and examined no events o/n Physical Examination: General Appearance: Comfortable, in no acute respiratory distress, co-operative . Vitals reviewed and noted as below Head; Atraumatic, normocephalic ENT: no ulcers no thrush. Tongue is midline. Oropharynx: no rash or ulcers. EYES: Pupils are equal, round and reactive to light accommodation. Eye muscles and extraocular movement intact. Sclera is anicteric. Neck; supple no lymphadenopathy, no thyromegaly or bruit Lungs: Normal respiratory rate/effort. Breath sounds bilateral equal and clear Heart: Normal rate. s1s2 normal. No rub or gallop. Extremities: no edema. No varicose veins. Neurological: Patient is alert, awake and oriented to person, place and time. No focal deficit. Strength bilateral appropriate and equal Skin: Warm and dry. Normal turgor. No rash. Palpitation: Normal elasticity for age Abdomen: Abdomen is soft. Bowel sounds +. There is no abdominal tenderness, no guarding/rigidity or organomegaly Psych: normal insight and normal affect/mood MSK: no joint tenderness or swelling. Digits and nails normal, no deformity : kidney or bladder not palpable Access: AVF Objective - Vital Signs/Intake and Output Vital Signs (last 24 hours): Temp Pulse Resp BP Pulse Ox 98.1 F 80 20 138/67 98 08/23/18 07:47 08/23/18 09:38 08/23/18 07:47 08/23/18 09:38 08/23/18 07:47 Intake and Output: 08/23/18 08/23/18 06:59 18:59 Intake Total 500 22 Output Total 200 Balance 300 22 - Medications Medications: Current Medications Acetaminophen (Tylenol 325mg Tab) 650 mg PO Q6 PRN PRN Reason: Fever >100.4 F Acetaminophen (Tylenol 325mg Tab) 650 mg PO Q6 PRN PRN Reason: Pain, moderate (4-7) Amlodipine Besylate (Norvasc) 10 mg PO DAILY [facility] Last Admin: 08/23/18 09:40 Dose: 10 mg [facility] ([facility] Last Admin: 08/23/18 08:19 Dose: 1,334 mg Carvedilol (Coreg) 6.25 mg PO DAILY [facility] Last Admin: 08/23/18 09:39 Dose: 6.25 mg Docusate Sodium (Colace) 100 mg PO BID [facility] Last Admin: 08/23/18 09:39 Dose: 100 mg Epoetin Chato (Procrit) 4,000 [place] [facility] [place]imepiride (Amaryl) 4 mg PO DAILY [facility] Last Admin: 08/23/18 09:40 Dose: 4 mg Vancomycin HCl 500 mg/ Sodium (Chloride) 100 mls @ 100 mls/hr [place] [facility] [place] Protocol Insulin Aspart (Novolog) 0 unit SC [facility]; Protocol Last Admin: 08/23/18 12:01 Dose: Not Given Insulin Glargine (Lantus) 40 unit SC HS [facility] Last Admin: 08/22/18 21:33 Dose: 40 u Lamotrigine (Lamictal) 25 mg PO BID [facility] Last Admin: 08/23/18 09:40 Dose: 25 mg Losartan Potassium (Cozaar) 100 mg PO DAILY [facility] Last Admin: 08/23/18 09:40 Dose: 100 mg Mupirocin (Bactroban Ointment) 0 gm TOP DAILY [facility] Last Admin: 08/23/18 10:10 Dose: Not Given Tamsulosin HCl (Flomax) 0.4 mg PO DAILY [facility] Last Admin: 08/23/18 09:40 Dose: 0.4 mg Vitamin B Complex/Vit C/Folic Acid (Nephro-Poly) 1 tab PO 0800 [facility] Last Admin: 08/23/18 08:19 Dose: 1 tab - Labs Labs: 08/21/18 20:13 08/21/18 20:13 PT 12.5 SECONDS (9.7-12.2) H 08/04/18 11:56 INR 1.1 08/04/18 11:56 APTT 28 SECONDS (21-34) 08/04/18 11:56
[2018-08-23] MEDS: (Lantus) Insulin Glargine, Recombinant SC SCH (21:20)
[2018-08-24] MEDS: (Novolog) Insulin Aspart, Recombinant 100 u/ml 10 ml vial SC SCH ×4 (07:35→22:24)
[2018-08-24] MEDS: Multivitamin Vitamin B Complex (Nephro-Vite) Tab PO SCH (08:35)
[2018-08-24] MEDS ORDERED: EPOETIN ALFA 4,000 UNIT/ML ML Dialysis IV SCH (09:00)
--- NOTE | 2018-08-24 12:19 | CP.PCM.PN ---
Subjective - Date & Time of Evaluation Date of Evaluation: 08/24/18 Time of Evaluation: 12:19 - Subjective Subjective: Podiatry Progress Note - Dr. Rodriguez Jenkins 78 y/o male seen and evaluated at bedside this afternoon for bilateral heel deep tissue injuries and healed right hallux ulceration. Patient is seen resting comfortably in bed, in NAD, alert and awake. Denies any acute overnight events. Denies any pain to the lower extremities or any new complaints. Denies nausea, fever, shortness of breath, chest pains or chills. Objective - Vital Signs/Intake and Output Vital Signs (last 24 hours): Temp Pulse Resp BP Pulse Ox 98.2 F 67 18 162/66 H 97 08/24/18 07:34 08/24/18 07:34 08/24/18 07:34 08/24/18 07:34 08/24/18 07:34 Intake and Output: 08/24/18 08/24/18 06:59 18:59 Intake Total 500 Output Total 200 Balance 300 - Medications Medications: Current Medications Acetaminophen (Tylenol 325mg Tab) 650 mg PO Q6 PRN PRN Reason: Fever >100.4 F Acetaminophen (Tylenol 325mg Tab) 650 mg PO Q6 PRN PRN Reason: Pain, moderate (4-7) Amlodipine Besylate (Norvasc) 10 mg PO DAILY [facility] Last Admin: 08/24/18 10:51 Dose: Not Given Calcium Acetate (Phoslo) 1,334 mg PO BIDCC [facility] Last Admin: 08/24/18 08:35 Dose: 1,334 mg Carvedilol (Coreg) 6.25 mg PO DAILY [facility] Last Admin: 08/24/18 10:51 Dose: Not Given Docusate Sodium (Colace) 100 mg PO BID [facility] Last Admin: 08/24/18 10:50 Dose: 100 mg Epoetin Chato (Procrit) 4,000 unit IV QWK [facility] Glimepiride (Amaryl) 4 mg PO DAILY [facility] Last Admin: 08/24/18 10:50 Dose: 4 mg Vancomycin HCl 500 mg/ Sodium (Chloride) 100 mls @ 100 mls/hr IVPB [facility]; Protocol Insulin Aspart (Novolog) 0 unit SC ACHS [facility]; Protocol Last Admin: 08/24/18 07:35 Dose: Not Given Insulin Glargine (Lantus) 40 unit SC HS [facility] Last Admin: 08/23/18 21:20 Dose: 40 u Lamotrigine (Lamictal) 25 mg PO BID [facility] Last Admin: 08/24/18 10:51 Dose: Not Given Losartan Potassium (Cozaar) 100 mg PO DAILY [facility] Last Admin: 08/24/18 10:51 Dose: Not Given Mupirocin (Bactroban Ointment) 0 gm TOP DAILY [facility] Last Admin: 08/24/18 10:51 Dose: Not Given Tamsulosin HCl (Flomax) 0.4 mg PO DAILY [facility] Last Admin: 08/24/18 10:50 Dose: 0.4 mg Vitamin B Complex/Vit C/Folic Acid (Nephro-Poly) 1 tab PO 0800 [facility] Last Admin: 08/24/18 08:35 Dose: 1 tab - Labs Labs: 08/21/18 20:13 08/21/18 20:13 PT 12.5 SECONDS (9.7-12.2) H 08/04/18 11:56 INR 1.1 08/04/18 11:56 APTT 28 SECONDS (21-34) 08/04/18 11:56 - Constitutional Appears: Well, Non-toxic, No Acute Distress - Extremities Exam Additional comments: Lower extremity focused exam: Vasc: DP/PT pulses palpable 2/4 B/L. Temperature gradient warm to cool B/L. CFT < 3 sec to all digits. No pedal edema noted Derm: Dry hyperkeratotic tissue noted to entirety of distal tip of right hallux with hyperpigmentation of digit and healed, well-epithelialized ulceration to plantar aspect of digit with no breaks in skin or soft tissue. No malodor, no streaking, no erythema, no active drainage, no fluctuance. No evidence of necrosis or gangrenous changes at present. Deep tissue injuries noted to bilateral posteroplantar heels. No breaks in skin or soft tissue of heels noted B/L. Neuro: protective sensation grossly intact Ortho: no tenderness to palpation of right great toe or bilateral plantar heels at site of deep tissue injuries - Neurological Exam Neurological Exam: Alert, Awake, Oriented x3 - Psychiatric Exam Psychiatric exam: Normal Affect, Normal Mood Assessment and Plan - Assessment and Plan (Free Text) Assessment: 78 year old male patient with healed right great toe ulceration and bilateral stable heel deep tissue injuries likely secondary to pressure Plan: Patient seen and evaluated this afternoon Discussed plan with attending Dr. Jenkins Foot x-rays show no acute osseous findings, no evidence of osteomyelitis Arterial duplex studies- no significant arterial insufficiency to lower extremities Right distal hallux ulceration completely healed with epithelized layer Heel DTI stable to bilateral lower extremities - bandaged with Optifoam dressing Continue offloading with multipodus boots at all times in bed Wound culture; methicillin resistant staph aureus, cornybacterium Continue abx per ID recommendations Stable per podiatry standpoint Upon discharge, patient to follow up with Dr. Jenkins in clinic within 1 week
--- NOTE | 2018-08-24 13:21 | CP.PCM.PN ---
Subjective - Date & Time of Evaluation Date of Evaluation: 08/24/18 Time of Evaluation: 13:20 - Subjective Subjective: Nephrology Consultation Note: Assessment: Stable Rt foot cellulitis and Pneumonia Diabetic chronic Kidney Disease (E11.22) Hypertensive Chronic Kidney Disease (I12.0) End stage renal disease (N18.6) dependence on hemodialysis (Z99.2) (MWF) via AVF Anemia (D64.9), Hyperphosphatemia (E83.39), Secondary Hyperparathyroidism (E21.1), HTN (I12.0) Plan: Will plan for HD MWF schedule as ordered. Continue with Nephrovite 1 tab/day. PRBC as needed for anemia.on LESLI with dialysis as last Hb 111.7, lowered dose Continue with phos binders, last phos level: 3.8 BP control with meds as ordered. Patient on RAAS ish Glycemic control, Dialysis consistent diet Further work up/management as per primary team Dose meds/antibiotics (if needed) for ESRD status. Avoid fleets enema/magnesium based laxatives. pt stable for d/c from renal perspective when planned. awaiting [facility] placement Thanks for allowing me to participate in care of your patient. Will follow patient with you. Please call if any Qs Dr Edwardo Valenzuela Office: [phone] Chief Complaint;Rt toe infection and cough HPI: Pt is a 78 year old male with PMHx of DM, HTN, HLD, ESRD on dialysis (MWF), CAD s/p CABG, AVR, BPH and Bipolar disorder presents to ED complaining of cough x 2 weeks and redness, swelling of the right big toe and admitted for cellulitis, pneumonia. Renal consult requested for ESRD management. last HD friday. otherwise feels usual health ROS: Cardiovascular: No chest pain. Pulmonary: No shortness of breath . Gastrointestinal: denies abdominal pain No nausea. No vomiting. Genitourinary: No pain while urinating. Denies blood in urine. All other negative except as mentioned in HPI Physical Examination: General Appearance: Comfortable, in no acute respiratory distress, co-operative . Vitals reviewed and noted as below Head; Atraumatic, normocephalic ENT: no ulcers no thrush. Tongue is midline. Oropharynx: no rash or ulcers. EYES: Pupils are equal, round and reactive to light accommodation. Eye muscles and extraocular movement intact. Sclera is anicteric. Neck; supple no lymphadenopathy, no thyromegaly or bruit Lungs: Normal respiratory rate/effort. Breath sounds bilateral equal and clear Heart: Normal rate. s1s2 normal. No rub or gallop. Extremities: no edema. No varicose veins. Neurological: Patient is alert, awake and oriented to person, place and time. No focal deficit. Strength bilateral appropriate and equal Skin: Warm and dry. Normal turgor. No rash. Palpitation: Normal elasticity for age Abdomen: Abdomen is soft. Bowel sounds +. There is no abdominal tenderness, no guarding/rigidity or organomegaly Psych: normal insight and normal affect/mood MSK: no joint tenderness or swelling. Digits and nails normal, no deformity : kidney or bladder not palpable Access: AVF Labs/imaging reviewed. Past medical history, past surgical history, family history, social history, al lergy reviewed and noted as below Family Hx: no hx of CKD. Non contributory Objective - Vital Signs/Intake and Output Vital Signs (last 24 hours): Temp Pulse Resp BP Pulse Ox 98.2 F 67 18 162/66 H 97 08/24/18 07:34 08/24/18 07:34 08/24/18 07:34 08/24/18 07:34 08/24/18 07:34 Intake and Output: 08/24/18 08/24/18 06:59 18:59 Intake Total 500 Output Total 200 Balance 300 - Medications Medications: Current Medications Acetaminophen (Tylenol 325mg Tab) 650 mg PO Q6 PRN PRN Reason: Fever >100.4 F Acetaminophen (Tylenol 325mg Tab) 650 mg PO Q6 PRN PRN Reason: Pain, moderate (4-7) Amlodipine Besylate (Norvasc) 10 mg PO DAILY [facility] Last Admin: 08/24/18 10:51 Dose: Not Given Calcium Acetate (Phoslo) 1,334 mg PO BIDCC [facility] Last Admin: 08/24/18 08:35 Dose: 1,334 mg Carvedilol (Coreg) 6.25 mg PO DAILY [facility] Last Admin: 08/24/18 10:51 Dose: Not Given Docusate Sodium (Colace) 100 mg PO BID [facility] Last Admin: 08/24/18 10:50 Dose: 100 mg Epoetin Chato (Procrit) 4,000 unit IV QWK [facility] Glimepiride (Amaryl) 4 mg PO DAILY [facility] Last Admin: 08/24/18 10:50 Dose: 4 mg Vancomycin HCl 500 mg/ Sodium (Chloride) 100 mls @ 100 mls/hr IVPB [facility]; Protocol Insulin Aspart (Novolog) 0 unit SC ACHS [facility]; Protocol Last Admin: 08/24/18 12:30 Dose: Not Given Insulin Glargine (Lantus) 40 unit SC HS [facility] Last Admin: 08/23/18 21:20 Dose: 40 u Lamotrigine (Lamictal) 25 mg PO BID [facility] Last Admin: 08/24/18 10:51 Dose: Not Given Losartan Potassium (Cozaar) 100 mg PO DAILY [facility] Last Admin: 08/24/18 10:51 Dose: Not Given Mupirocin (Bactroban Ointment) 0 gm TOP DAILY [facility] Last Admin: 08/24/18 10:51 Dose: Not Given Tamsulosin HCl (Flomax) 0.4 mg PO DAILY [facility] Last Admin: 08/24/18 10:50 Dose: 0.4 mg Vitamin B Complex/Vit C/Folic Acid (Nephro-Poly) 1 tab PO 0800 [facility] Last Admin: 08/24/18 08:35 Dose: 1 tab - Labs Labs: 08/21/18 20:13 08/21/18 20:13 PT 12.5 SECONDS (9.7-12.2) H 08/04/18 11:56 INR 1.1 08/04/18 11:56 APTT 28 SECONDS (21-34) 08/04/18 11:56
[2018-08-24] MEDS: (Lantus) Insulin Glargine, Recombinant SC SCH (22:24)
--- NOTE | 2018-08-25 00:21 | CP.PCM.PN ---
Subjective - Date & Time of Evaluation Date of Evaluation: 08/24/18 Time of Evaluation: 19:45 - Subjective Subjective: Patient still in isolation for MRSA from the foot wound. On Bacitracin ointment and IV Vancomycin. Objective - Vital Signs/Intake and Output Vital Signs (last 24 hours): Temp Pulse Resp BP Pulse Ox 97.9 F 64 18 130/68 98 08/24/18 19:00 08/24/18 19:00 08/24/18 19:00 08/24/18 19:00 08/24/18 19:00 - Medications Medications: Current Medications Acetaminophen (Tylenol 325mg Tab) 650 mg PO Q6 PRN PRN Reason: Fever >100.4 F Acetaminophen (Tylenol 325mg Tab) 650 mg PO Q6 PRN PRN Reason: Pain, moderate (4-7) Amlodipine Besylate (Norvasc) 10 mg PO DAILY [facility] Last Admin: 08/24/18 10:51 Dose: Not Given [facility] Admin: 08/24/18 19:25 Dose: 1,334 mg Carvedilol (Coreg) 6.25 mg PO DAILY [facility] Last Admin: 08/24/18 10:51 Dose: Not Given Docusate Sodium (Colace) 100 mg PO BID [facility] Last Admin: 08/24/18 19:25 Dose: 100 mg Epoetin Chato (Procrit) 4,000 unit IV QWK [facility] Glimepiride (Amaryl) 4 mg PO DAILY [facility] Last Admin: 08/24/18 10:50 Dose: 4 mg Vancomycin HCl 500 mg/ Sodium (Chloride) 100 mls @ 100 mls/hr IVPB MWF [facility]; Protocol Last Admin: 08/24/18 19:34 Dose: 100 mls/hr Insulin Aspart (Novolog) 0 unit SC ACHS [facility]; Protocol Last Admin: 08/24/18 22:24 Dose: Not Given Insulin Glargine (Lantus) 40 unit SC HS [facility] Last Admin: 08/24/18 22:24 Dose: 40 u Lamotrigine (Lamictal) 25 mg PO BID [facility] Last Admin: 08/24/18 19:24 Dose: 25 mg Losartan Potassium (Cozaar) 100 mg PO DAILY [facility] Last Admin: 08/24/18 10:51 Dose: Not Given Mupirocin (Bactroban Ointment) 0 gm TOP DAILY [facility] Last Admin: 08/24/18 10:51 Dose: Not Given Tamsulosin HCl (Flomax) 0.4 mg PO DAILY [facility] Last Admin: 08/24/18 10:50 Dose: 0.4 mg Vitamin B Complex/Vit C/Folic Acid (Nephro-Poly) 1 tab PO 0800 [facility] Last Admin: 08/24/18 08:35 Dose: 1 tab - Labs Labs: 08/21/18 20:13 08/21/18 20:13 PT 12.5 SECONDS (9.7-12.2) H 08/04/18 11:56 INR 1.1 08/04/18 11:56 APTT 28 SECONDS (21-34) 08/04/18 11:56 - Constitutional Appears: No Acute Distress, Chronically Ill - Head Exam Head Exam: NORMOCEPHALIC - Eye Exam Eye Exam: Normal appearance - ENT Exam ENT Exam: Normal Exam - Neck Exam Neck Exam: Normal Inspection - Respiratory Exam Respiratory Exam: Clear to Ausculation Bilateral - Cardiovascular Exam Cardiovascular Exam: REGULAR RHYTHM - GI/Abdominal Exam GI & Abdominal Exam: Soft, Normal Bowel Sounds - Rectal Exam Rectal Exam: Deferred - Exam Exam: NORMAL INSPECTION - Extremities Exam Extremities Exam: Normal Inspection - Back Exam Back Exam: NORMAL INSPECTION - Neurological Exam Neurological Exam: Alert, Awake, Oriented x3 - Psychiatric Exam Psychiatric exam: Anxious - Skin Skin Exam: Dry, Normal Color, Warm Assessment and Plan (1) Ischemic ulcer of heel with necrosis of muscle Status: Resolved (2) Gangrene of toe of right foot Status: Resolved (3) Right middle lobe pneumonia Status: Resolved (4) Uncontrolled diabetes mellitus Status: Chronic (5) ESRD on hemodialysis Status: Chronic
[2018-08-25] MEDS: (Novolog) Insulin Aspart, Recombinant 100 u/ml 10 ml vial SC SCH ×4 (08:16→21:54)
[2018-08-25] MEDS: Multivitamin Vitamin B Complex (Nephro-Vite) Tab PO SCH (08:46)
--- NOTE | 2018-08-25 11:15 | CP.PCM.PN ---
Subjective - Date & Time of Evaluation Date of Evaluation: 08/25/18 Time of Evaluation: 11:14 - Subjective Subjective: Nephrology Consultation Note: Assessment: Stable Rt foot cellulitis and Pneumonia Diabetic chronic Kidney Disease (E11.22) Hypertensive Chronic Kidney Disease (I12.0) End stage renal disease (N18.6) dependence on hemodialysis (Z99.2) (MWF) via AVF Anemia (D64.9), Hyperphosphatemia (E83.39), Secondary Hyperparathyroidism (E21.1), HTN (I12.0) Plan: Will plan for HD MWF schedule as ordered. Continue with Nephrovite 1 tab/day. PRBC as needed for anemia.on LESLI with dialysis as last Hb 111.7, lowered dose Continue with phos binders, last phos level: 3.8 BP control with meds as ordered. Patient on RAAS ish Glycemic control, Dialysis consistent diet Further work up/management as per primary team Dose meds/antibiotics (if needed) for ESRD status. Avoid fleets enema/magnesium based laxatives. pt stable for d/c from renal perspective when planned. awaiting [facility] placement Thanks for allowing me to participate in care of your patient. Will follow patient with you. Please call if any Qs Dr Edwardo Valenzuela Office: [phone] Chief Complaint;Rt toe infection and cough HPI: Pt is a 78 year old male with PMHx of DM, HTN, HLD, ESRD on dialysis (MWF), CAD s/p CABG, AVR, BPH and Bipolar disorder presents to ED complaining of cough x 2 weeks and redness, swelling of the right big toe and admitted for cellulitis, pneumonia. Renal consult requested for ESRD management. last HD friday. otherwise feels usual health ROS: Cardiovascular: No chest pain. Pulmonary: No shortness of breath . Gastrointestinal: denies abdominal pain No nausea. No vomiting. Genitourinary: No pain while urinating. Denies blood in urine. All other negative except as mentioned in HPI Physical Examination: General Appearance: Comfortable, in no acute respiratory distress, co-operative . Vitals reviewed and noted as below Head; Atraumatic, normocephalic ENT: no ulcers no thrush. Tongue is midline. Oropharynx: no rash or ulcers. EYES: Pupils are equal, round and reactive to light accommodation. Eye muscles and extraocular movement intact. Sclera is anicteric. Neck; supple no lymphadenopathy, no thyromegaly or bruit Lungs: Normal respiratory rate/effort. Breath sounds bilateral equal and clear Heart: Normal rate. s1s2 normal. No rub or gallop. Extremities: no edema. No varicose veins. Neurological: Patient is alert, awake and oriented to person, place and time. No focal deficit. Strength bilateral appropriate and equal Skin: Warm and dry. Normal turgor. No rash. Palpitation: Normal elasticity for age Abdomen: Abdomen is soft. Bowel sounds +. There is no abdominal tenderness, no guarding/rigidity or organomegaly Psych: normal insight and normal affect/mood MSK: no joint tenderness or swelling. Digits and nails normal, no deformity : kidney or bladder not palpable Access: AVF Labs/imaging reviewed. Past medical history, past surgical history, family history, social history, al lergy reviewed and noted as below Family Hx: no hx of CKD. Non contributory Objective - Vital Signs/Intake and Output Vital Signs (last 24 hours): Temp Pulse Resp BP Pulse Ox 98.3 F 69 20 143/66 99 08/25/18 08:00 08/25/18 10:23 08/25/18 08:00 08/25/18 10:23 08/25/18 08:00 - Medications Medications: Current Medications Acetaminophen (Tylenol 325mg Tab) 650 mg PO Q6 PRN PRN Reason: Fever >100.4 F Acetaminophen (Tylenol 325mg Tab) 650 mg PO Q6 PRN PRN Reason: Pain, moderate (4-7) Amlodipine Besylate (Norvasc) 10 mg PO DAILY [facility] Last Admin: 08/25/18 10:24 Dose: 10 mg Calcium Acetate (Phoslo) 1,334 mg PO BIDCC [facility] Last Admin: 08/25/18 08:46 Dose: 1,334 mg Carvedilol (Coreg) 6.25 mg PO DAILY [facility] Last Admin: 08/25/18 10:24 Dose: 6.25 mg Docusate Sodium (Colace) 100 mg PO BID [facility] Last Admin: 08/25/18 10:24 Dose: 100 mg Epoetin Chato (Procrit) 4,000 unit IV QWK [facility] Glimepiride (Amaryl) 4 mg PO DAILY [facility] Last Admin: 08/25/18 10:24 Dose: 4 mg Vancomycin HCl 500 mg/ Sodium (Chloride) 100 mls @ 100 mls/hr IVPB MWF [facility]; Protocol Last Admin: 08/24/18 19:34 Dose: 100 mls/hr Insulin Aspart (Novolog) 0 unit SC ACHS [facility]; Protocol Last Admin: 08/25/18 08:16 Dose: Not Given Insulin Glargine (Lantus) 40 unit SC HS [facility] Last Admin: 08/24/18 22:24 Dose: 40 u Lamotrigine (Lamictal) 25 mg PO BID [facility] Last Admin: 08/25/18 10:24 Dose: 25 mg Losartan Potassium (Cozaar) 100 mg PO DAILY [facility] Last Admin: 08/25/18 10:24 Dose: 100 mg Mupirocin (Bactroban Ointment) 0 gm TOP DAILY [facility] Last Admin: 08/24/18 10:51 Dose: Not Given Tamsulosin HCl (Flomax) 0.4 mg PO DAILY [facility] Last Admin: 08/25/18 10:26 Dose: 0.4 mg Vitamin B Complex/Vit C/Folic Acid (Nephro-Poly) 1 tab PO 0800 [facility] Last Admin: 08/25/18 08:46 Dose: 1 tab - Labs Labs: 08/21/18 20:13 08/21/18 20:13 PT 12.5 SECONDS (9.7-12.2) H 08/04/18 11:56 INR 1.1 08/04/18 11:56 APTT 28 SECONDS (21-34) 08/04/18 11:56
--- NOTE | 2018-08-25 16:50 | CP.PCM.PN ---
Subjective - Date & Time of Evaluation Date of Evaluation: 08/25/18 Time of Evaluation: 16:47 - Subjective Subjective: Patient has no complaint. On Bacitracin ointment and IV Vancomycin for MRSA from his right foot. Objective - Vital Signs/Intake and Output Vital Signs (last 24 hours): Temp Pulse Resp BP Pulse Ox 97.3 F L 62 20 121/66 98 08/25/18 15:42 08/25/18 15:42 08/25/18 15:42 08/25/18 15:42 08/25/18 15:42 - Medications Medications: Current Medications Acetaminophen (Tylenol 325mg Tab) 650 mg PO Q6 PRN PRN Reason: Fever >100.4 F Acetaminophen (Tylenol 325mg Tab) 650 mg PO Q6 PRN PRN Reason: Pain, moderate (4-7) Amlodipine Besylate (Norvasc) 10 mg PO DAILY [facility] Last Admin: 08/25/18 10:24 Dose: 10 mg Calcium Acetate (Phoslo) 1,334 mg PO BIDCC [facility] Last Admin: 08/25/18 08:46 Dose: 1,334 mg Carvedilol (Coreg) 6.25 mg PO DAILY [facility] Last Admin: 08/25/18 10:24 Dose: 6.25 mg Docusate Sodium (Colace) 100 mg PO BID [facility] Last Admin: 08/25/18 10:24 Dose: 100 mg Epoetin Chato (Procrit) 4,000 unit IV QWK [facility] Glimepiride (Amaryl) 4 mg PO DAILY [facility] Last Admin: 08/25/18 10:24 Dose: 4 mg Vancomycin HCl 500 mg/ Sodium (Chloride) 100 mls @ 100 mls/hr IVPB MWF [facility]; Protocol Last Admin: 08/24/18 19:34 Dose: 100 mls/hr Insulin Aspart (Novolog) 0 unit SC ACHS [facility]; Protocol Last Admin: 08/25/18 16:08 Dose: Not Given Insulin Glargine (Lantus) 40 unit SC HS [facility] Last Admin: 08/24/18 22:24 Dose: 40 u Lamotrigine (Lamictal) 25 mg PO BID [facility] Last Admin: 08/25/18 10:24 Dose: 25 mg Losartan Potassium (Cozaar) 100 mg PO DAILY [facility] Last Admin: 08/25/18 10:24 Dose: 100 mg Mupirocin (Bactroban Ointment) 0 gm TOP DAILY [facility] Last Admin: 08/25/18 10:24 Dose: 1 applic Tamsulosin HCl (Flomax) 0.4 mg PO DAILY [facility] Last Admin: 08/25/18 10:26 Dose: 0.4 mg Vitamin B Complex/Vit C/Folic Acid (Nephro-Poly) 1 tab PO 0800 [facility] Last Admin: 08/25/18 08:46 Dose: 1 tab - Labs Labs: 08/21/18 20:13 08/21/18 20:13 PT 12.5 SECONDS (9.7-12.2) H 08/04/18 11:56 INR 1.1 08/04/18 11:56 APTT 28 SECONDS (21-34) 08/04/18 11:56 - Constitutional Appears: No Acute Distress, Chronically Ill - Head Exam Head Exam: NORMOCEPHALIC - Eye Exam Pupil Exam: NORMAL ACCOMODATION - ENT Exam ENT Exam: Normal Exam - Neck Exam Neck Exam: Normal Inspection - Respiratory Exam Respiratory Exam: Rhonchi - Cardiovascular Exam Cardiovascular Exam: REGULAR RHYTHM - GI/Abdominal Exam GI & Abdominal Exam: Soft, Normal Bowel Sounds - Rectal Exam Rectal Exam: Deferred - Extremities Exam Additional comments: Healed right great toe ulcer. - Back Exam Back Exam: NORMAL INSPECTION - Neurological Exam Neurological Exam: Alert, Awake, Oriented x3 - Psychiatric Exam Psychiatric exam: Anxious Assessment and Plan (1) Ischemic ulcer of heel with necrosis of muscle Status: Resolved (2) Gangrene of toe of right foot Status: Resolved (3) Right middle lobe pneumonia Status: Resolved (4) Uncontrolled diabetes mellitus Status: Chronic (5) ESRD on hemodialysis Status: Chronic
[2018-08-25] MEDS: (Lantus) Insulin Glargine, Recombinant SC SCH (21:30)
[2018-08-26] MEDS: (Novolog) Insulin Aspart, Recombinant 100 u/ml 10 ml vial SC SCH ×4 (08:24→22:03)
[2018-08-26] MEDS: Multivitamin Vitamin B Complex (Nephro-Vite) Tab PO SCH (08:24)
--- NOTE | 2018-08-26 09:22 | CP.PCM.PN ---
Subjective - Date & Time of Evaluation Date of Evaluation: 08/26/18 Time of Evaluation: 09:21 - Subjective Subjective: Podiatry Progress Note - Dr. Rodriguez Jenkins 78 y/o male seen and evaluated at bedside for bilateral heel deep tissue injuries and healed right hallux ulceration. Patient is seen resting comfortably in bed, in NAD, alert and awake. Denies any acute overnight events. Denies any pain to the lower extremities or any new complaints. Denies F/C/N/V/CP/SOB Objective - Vital Signs/Intake and Output Vital Signs (last 24 hours): Temp Pulse Resp BP Pulse Ox 98.1 F 82 20 134/66 100 08/26/18 08:00 08/26/18 08:00 08/26/18 08:00 08/26/18 08:00 08/26/18 08:00 - Medications Medications: Current Medications Acetaminophen (Tylenol 325mg Tab) 650 mg PO Q6 PRN PRN Reason: Fever >100.4 F Acetaminophen (Tylenol 325mg Tab) 650 mg PO Q6 PRN PRN Reason: Pain, moderate (4-7) Amlodipine Besylate (Norvasc) 10 mg PO DAILY [facility] Last Admin: 08/25/18 10:24 Dose: 10 mg Calcium Acetate (Phoslo) 1,334 mg PO BIDCC [facility] Last Admin: 08/26/18 08:24 Dose: 1,334 mg Carvedilol (Coreg) 6.25 mg PO DAILY [facility] Last Admin: 08/25/18 10:24 Dose: 6.25 mg Docusate Sodium (Colace) 100 mg PO BID [facility] Last Admin: 08/25/18 17:27 Dose: 100 mg Epoetin Chato (Procrit) 4,000 unit IV QWK [facility] Glimepiride (Amaryl) 4 mg PO DAILY [facility] Last Admin: 08/25/18 10:24 Dose: 4 mg Vancomycin HCl 500 mg/ Sodium (Chloride) 100 mls @ 100 mls/hr IVPB [facility]; Protocol Last Admin: 08/24/18 19:34 Dose: 100 mls/hr Insulin Aspart (Novolog) 0 unit SC [facility]; Protocol Last Admin: 08/26/18 08:24 Dose: Not Given Insulin Glargine (Lantus) 40 unit SC [facility] Last Admin: 08/25/18 21:30 Dose: 20 u Lamotrigine (Lamictal) 25 mg PO BID [facility] Last Admin: 08/25/18 17:28 Dose: 25 mg Losartan Potassium (Cozaar) 100 mg PO DAILY [facility] Last Admin: 08/25/18 10:24 Dose: 100 mg Mupirocin (Bactroban Ointment) 0 gm TOP DAILY [facility] Last Admin: 08/25/18 10:24 Dose: 1 applic Tamsulosin HCl (Flomax) 0.4 mg PO DAILY [facility] Last Admin: 08/25/18 10:26 Dose: 0.4 mg Vitamin B Complex/Vit C/Folic Acid (Nephro-Poly) 1 tab PO 0800 [facility] Last Admin: 08/26/18 08:24 Dose: 1 tab - Labs Labs: 08/21/18 20:13 08/21/18 20:13 PT 12.5 SECONDS (9.7-12.2) H 08/04/18 11:56 INR 1.1 08/04/18 11:56 APTT 28 SECONDS (21-34) 08/04/18 11:56 - Constitutional Appears: Well, Non-toxic, No Acute Distress - Extremities Exam Additional comments: Lower extremity focused exam: Vasc: DP/PT pulses palpable 2/4 B/L. Temperature gradient warm to cool B/L. CFT < 3 sec to all digits. No pedal edema noted. No signs of ischemic changes or gangrene Derm: Dry healed well epithelialized ulceration to plantar distal tip of hallux with overlying hyperkeratotic tissue and hyperpigmentation of digit noted. No break in skin or soft tissue, malodor, no streaking, no erythema, no active drainage, no fluctuance. Deep tissue injuries noted to bilateral posteroplantar heels. No breaks in skin or soft tissue of heels noted B/L. Neuro: protective sensation grossly intact Ortho: no tenderness to palpation of right great toe or bilateral plantar heels at site of deep tissue injuries - Neurological Exam Neurological Exam: Alert, Awake, Oriented x3 - Psychiatric Exam Psychiatric exam: Normal Affect, Normal Mood Assessment and Plan - Assessment and Plan (Free Text) Assessment: 78 year old male patient with healed right great toe ulceration and bilateral stable heel deep tissue injuries likely secondary to pressure Plan: Patient seen and evaluated this afternoon Discussed plan with attending Dr. Jenkins Foot x-rays show no acute osseous findings, no evidence of osteomyelitis Arterial duplex studies- no significant arterial insufficiency to lower extremities Right distal hallux ulceration completely healed with epithelized layer Heel DTI stable to bilateral lower extremities - bandaged with Optifoam dressing Continue offloading with multipodus boots at all times in bed Wound culture + for MRSA, Corynebacterium Continue abx per ID recommendations Stable per podiatry standpoint Upon discharge, patient to follow up with Dr. Jenkins in clinic within 1 week
[2018-08-26 13:55] LABS: BASO # 0.1 K/uL (0.0-0.2); BASO % 1.7 % (0.0-2.0); EOS # 0.4 K/uL (0.0-0.7); EOS % 6.4 % (0.0-4.0); HEMOGLOBIN 12.6 g/dL (12.0-18.0); LYMPH # 1.8 K/uL (1.0-4.3); LYMPH % 30.7 % (20.0-40.0); MEAN CORPUSCULAR HEMOGLOBIN 28.9 pg (27.0-31.0); MEAN CORPUSCULAR HGB CONC 32.5 g/dL (33.0-37.0); MEAN PLATELET VOLUME 9.1 fL (7.2-11.7); MONO # 0.6 K/uL (0.0-0.8); MONO % 10.1 % (0.0-10.0); NEUT % 51.1 % (50.0-75.0); RBC 4.37 Mil/uL (4.40-5.90); RED CELL DISTRIBUTION WIDTH 16.5 % (11.5-14.5); WHITE BLOOD COUNT 5.9 K/uL (4.8-10.8)
[2018-08-26 14:18] LABS: CALCIUM 9.4 mg/dl (8.6-10.4)
--- NOTE | 2018-08-26 14:41 | PCM.RRT ---
<Shania Henson - Last Filed: 08/26/18 14:38> JAVASCRIPT ENGINEER Nurses Assessment - Situation Date: 08/26/18 Time JAVASCRIPT ENGINEER was called: 14:35 JAVASCRIPT ENGINEER Responder Arrival Time:: 14:36 JAVASCRIPT ENGINEER Location:: Med/Surg Room Number: 554 JAVASCRIPT ENGINEER Reason for Call: Hypotension JAVASCRIPT ENGINEER Called By: RN - IV IV Inserted during JAVASCRIPT ENGINEER?: No IV Fluids Initiated During JAVASCRIPT ENGINEER?: no - Respiratory JAVASCRIPT ENGINEER Delivery Method: Room Air Received Nebulizer Treatments: No Was the Patient Ventilated with Bag/Mask 100% O2?: No Secretions Suctioned?: No Was the Patient Intubated?: No Was the Patient Placed on a Ventilator?: No - Medication Medications Administered During JAVASCRIPT ENGINEER: none - Diagnostic Test Ordered EKG: No Chest X-Ray: No CT Scan: No CPR started during JAVASCRIPT ENGINEER?: No - Vital Signs Vital Signs: BP 105/57 HR 76 temp 97.4 spO2 96% - Kerri Coma Scale Coma Scale Eye Opening: Spontaneous Coma Scale Motor: Obeys Commands Movement Coma Scale Verbal: Oriented Coma Scale Total: 15 - Time JAVASCRIPT ENGINEER Ended Time JAVASCRIPT ENGINEER Ended: 14:51 - Recommendations 5) JAVASCRIPT ENGINEER Level of Care Recommendations: Remain in current setting Notifications: Attending Physician I.Reason for JAVASCRIPT ENGINEER - A) Acute Change in Patient: (Select all that apply): Acute change in SBP below (76/46) Subjective: JAVASCRIPT ENGINEER called by RN for symptomatic hypotension. Patient just came back from hemodialysis, and he began to feel dizzy/lightheaded. Nursing reported 2 L removed during HD. Upon arrival, patient alert and verbal. Denied pain. After patient placed in Trendelenberg, patient's symptoms resolved. BP improved to 93/54, 98/56, 105/57. HR remained regular, rate in 70s-90s. - Neurological Status (Select all that apply): Alert, Responsive, Oriented, Verbal, Follows Commands - Respiratory Oxygen Delivery Method: Room Air - Constitutional Appears: No Acute Distress - Head Head Exam: ATRAUMATIC, NORMAL INSPECTION - Eyes Eye Exam: EOMI, Normal appearance, PERRL - Respiratory Exam Respiratory Exam: Clear to Ausculation Bilateral, NORMAL BREATHING PATTERN. absent: Accessory Muscle Use, Respiratory Distress - Cardiovascular Exam Cardiovascular Exam: REGULAR RHYTHM, +S1, +S2 - GI/Abdominal Exam GI & Abdominal Exam: Soft. absent: Distended, Tenderness - Neurological Exam Neurological Exam: Alert, Awake, CN II-XII Intact, Oriented x3 - Extremities Exam Extremities Exam: Normal Inspection Plan - Assessment of Findings&Treatment Plan - Placed patient in Trendelenberg position - Vitals in 30 mins, then vitals Q4H if BP improved - Hold BP medications - No IVF as patient just had 2L taken off during HD - Notify attending, Dr. Johnson <Neri Iqbal - Last Filed: 09/03/18 08:47> JAVASCRIPT ENGINEER Nurses Assessment - Vital Signs Vital Signs: Rapid Response Vital Sign Blood Pressure 160/73 Pulse Rate 128 Respiratory Rate 20 Temperature 99.8 F Oxygen Saturation 94 - Vital Signs at end of JAVASCRIPT ENGINEER Vital Signs at end of JAVASCRIPT ENGINEER: Rapid Response End Vital Sign Blood Pressure 127/73 Pulse Rate 125 Respiratory Rate 20 Temperature 100.0 F O2 Sat by Pulse Oximetry 96 Attending/Attestation - Attestation I have personally seen and examined this patient.: Yes I have fully participated in the care of the patient.: Yes I have reviewed all pertinent clinical information, including history, physical exam and plan: Yes Notes (Text): 09/03/18 08:47 This is a late entry. Care of this patient was discussed with resident Dr. Henson. Neri Iqbal D.O.
--- NOTE | 2018-08-26 16:43 | CP.PCM.PN ---
Subjective - Date & Time of Evaluation Date of Evaluation: 08/26/18 Time of Evaluation: 16:43 - Subjective Subjective: Nephrology Consultation Note: Assessment: Stable Rt foot cellulitis and Pneumonia Diabetic chronic Kidney Disease (E11.22) Hypertensive Chronic Kidney Disease (I12.0) End stage renal disease (N18.6) dependence on hemodialysis (Z99.2) (MWF) via AVF Anemia (D64.9), Hyperphosphatemia (E83.39), Secondary Hyperparathyroidism (E21.1), HTN (I12.0) Plan: Will plan for HD MWF schedule as ordered. Continue with Nephrovite 1 tab/day. PRBC as needed for anemia. not on LESLI with dialysis as last Hb 12.7 Continue with phos binders, last phos level: 3.8 BP control with meds as ordered. Patient on RAAS ish . stop norvasc. lowered UF goal during HD Glycemic control, Dialysis consistent diet Further work up/management as per primary team Dose meds/antibiotics (if needed) for ESRD status. Avoid fleets enema/magnesium based laxatives. pt stable for d/c from renal perspective when planned. awaiting [facility] placement Thanks for allowing me to participate in care of your patient. Will follow patient with you. Please call if any Qs Dr Edwardo Valenzuela Office: [phone] Chief Complaint;Rt toe infection and cough HPI: Pt is a 78 year old male with PMHx of DM, HTN, HLD, ESRD on dialysis (MWF), CAD s/p CABG, AVR, BPH and Bipolar disorder presents to ED complaining of cough x 2 weeks and redness, swelling of the right big toe and admitted for cellulitis, pneumonia. Renal consult requested for ESRD management. last HD friday. otherwise feels usual health ROS: [employer] today for low BP Cardiovascular: No chest pain. Pulmonary: No shortness of breath . Gastrointestinal: denies abdominal pain No nausea. No vomiting. Genitourinary: No pain while urinating. Denies blood in urine. All other negative except as mentioned in HPI Physical Examination: General Appearance: Comfortable, in no acute respiratory distress, co-operative . Vitals reviewed and noted as below Head; Atraumatic, normocephalic ENT: no ulcers no thrush. Tongue is midline. Oropharynx: no rash or ulcers. EYES: Pupils are equal, round and reactive to light accommodation. Eye muscles and extraocular movement intact. Sclera is anicteric. Neck; supple no lymphadenopathy, no thyromegaly or bruit Lungs: Normal respiratory rate/effort. Breath sounds bilateral equal and clear Heart: Normal rate. s1s2 normal. No rub or gallop. Extremities: no edema. No varicose veins. Neurological: Patient is alert, awake and oriented to person, place and time. No focal deficit. Strength bilateral appropriate and equal Skin: Warm and dry. Normal turgor. No rash. Palpitation: Normal elasticity for age Abdomen: Abdomen is soft. Bowel sounds +. There is no abdominal tenderness, no guarding/rigidity or organomegaly Psych: normal insight and normal affect/mood MSK: no joint tenderness or swelling. Digits and nails normal, no deformity : kidney or bladder not palpable Access: AVF Labs/imaging reviewed. Past medical history, past surgical history, family history, social history, allergy reviewed and noted as below Family Hx: no hx of CKD. Non contributory Objective - Vital Signs/Intake and Output Vital Signs (last 24 hours): Temp Pulse Resp BP Pulse Ox 97.9 F 77 20 109/62 96 08/26/18 15:00 08/26/18 15:00 08/26/18 15:00 08/26/18 15:00 08/26/18 14:45 - Medications Medications: Current Medications Acetaminophen (Tylenol 325mg Tab) 650 mg PO Q6 PRN PRN Reason: Fever >100.4 F Acetaminophen (Tylenol 325mg Tab) 650 mg PO Q6 PRN PRN Reason: Pain, moderate (4-7) [facility] ([facility] Last Admin: 08/26/18 08:24 Dose: 1,334 mg Carvedilol (Coreg) 6.25 mg PO DAILY [facility] Last Admin: 08/26/18 09:51 Dose: Not Given Docusate Sodium (Colace) 100 mg PO BID [facility] Last Admin: 08/26/18 09:51 Dose: Not Given Glimepiride (Amaryl) 4 mg PO DAILY [facility] Last Admin: 08/26/18 09:51 Dose: Not Given Vancomycin HCl 500 mg/ Sodium (Chloride) 100 mls @ 100 mls/hr IVPB MWF [facility]; Protocol Last Admin: 08/24/18 19:34 Dose: 100 mls/hr Insulin Aspart (Novolog) 0 unit SC ACHS [facility]; Protocol Last Admin: 08/26/18 12:24 Dose: Not Given Insulin Glargine (Lantus) 40 unit SC HS [facility] Last Admin: 08/25/18 21:30 Dose: 20 u Lamotrigine (Lamictal) 25 mg PO BID [facility] Last Admin: 08/26/18 09:51 Dose: Not Given Losartan Potassium (Cozaar) 100 mg PO DAILY [facility] Last Admin: 08/26/18 09:51 Dose: Not Given Mupirocin (Bactroban Ointment) 0 gm TOP DAILY [facility] Last Admin: 08/26/18 09:51 Dose: Not Given Tamsulosin HCl (Flomax) 0.4 mg PO DAILY [facility] Last Admin: 08/26/18 09:51 Dose: Not Given Vitamin B Complex/Vit C/Folic Acid (Nephro-Poly) 1 tab PO 0800 [facility] Last Admin: 08/26/18 08:24 Dose: 1 tab - Labs Labs: 08/26/18 13:51 08/26/18 13:51 PT 12.5 SECONDS (9.7-12.2) H 08/04/18 11:56 INR 1.1 08/04/18 11:56 APTT 28 SECONDS (21-34) 08/04/18 11:56
[2018-08-26] MEDS: (Lantus) Insulin Glargine, Recombinant SC SCH (21:42)
[2018-08-27] MEDS: (Novolog) Insulin Aspart, Recombinant 100 u/ml 10 ml vial SC SCH ×4 (07:45→21:00)
--- NOTE | 2018-08-27 10:09 | CP.PCM.PN ---
Subjective - Date & Time of Evaluation Date of Evaluation: 08/26/18 Time of Evaluation: 21:00 - Subjective Subjective: Patient had a hypotensive episode earlier yesterday morning following HD. The BP returned to normal with Trendelenburg positioning. Patient has no complaint now. For transfer to subacute rehabilatation today. Objective - Vital Signs/Intake and Output Vital Signs (last 24 hours): Temp Pulse Resp BP Pulse Ox 97.9 F 78 20 103/57 L 96 08/27/18 07:52 08/27/18 07:52 08/27/18 07:52 08/27/18 07:52 08/27/18 07:52 - Medications Medications: Current Medications Acetaminophen (Tylenol 325mg Tab) 650 mg PO Q6 PRN PRN Reason: Fever >100.4 F Acetaminophen (Tylenol 325mg Tab) 650 mg PO Q6 PRN PRN Reason: Pain, moderate (4-7) Cal[facility] ([facility] Last Admin: 08/26/18 17:30 Dose: 1,334 mg Carvedilol (Coreg) 6.25 mg PO DAILY [facility] Last Admin: 08/26/18 09:51 Dose: Not Given Docusate Sodium (Colace) 100 mg PO BID [facility] Last Admin: 08/26/18 17:30 Dose: 100 mg Glimepiride (Amaryl) 4 mg PO DAILY [facility] Last Admin: 08/26/18 09:51 Dose: Not Given Vancomycin HCl 500 mg/ Sodium (Chloride) 100 mls @ 100 mls/hr IVPB [facility]; Protocol Last Admin: 08/26/18 17:30 Dose: 100 mls/hr Insulin Aspart (Novolog) 0 unit SC ACHS [facility]; Protocol Last Admin: 08/27/18 07:45 Dose: Not Given Insulin Glargine (Lantus) 40 unit SC HS [facility] Last Admin: 08/26/18 21:42 Dose: 40 u Lamotrigine (Lamictal) 25 mg PO BID [facility] Last Admin: 08/26/18 17:30 Dose: 25 mg Losartan Potassium (Cozaar) 100 mg PO DAILY [facility] Last Admin: 08/26/18 09:51 Dose: Not Given Tamsulosin HCl (Flomax) 0.4 mg PO DAILY [facility] Last Admin: 08/26/18 09:51 Dose: Not Given Vitamin B Complex/Vit C/Folic Acid (Nephro-Poly) 1 tab PO 0800 [facility] Last Admin: 08/26/18 08:24 Dose: 1 tab - Labs Labs: 08/26/18 13:51 08/26/18 13:51 PT 12.5 SECONDS (9.7-12.2) H 08/04/18 11:56 INR 1.1 08/04/18 11:56 APTT 28 SECONDS (21-34) 08/04/18 11:56 - Constitutional Appears: No Acute Distress, Chronically Ill - Head Exam Head Exam: NORMOCEPHALIC - Eye Exam Eye Exam: Normal appearance Pupil Exam: NORMAL ACCOMODATION - ENT Exam ENT Exam: Normal Exam - Neck Exam Neck Exam: Normal Inspection - Respiratory Exam Respiratory Exam: Clear to Ausculation Bilateral, NORMAL BREATHING PATTERN - Cardiovascular Exam Cardiovascular Exam: REGULAR RHYTHM - GI/Abdominal Exam GI & Abdominal Exam: Soft, Normal Bowel Sounds - Rectal Exam Rectal Exam: Deferred - Exam Exam: NORMAL INSPECTION - Extremities Exam Extremities Exam: Normal Inspection - Back Exam Back Exam: NORMAL INSPECTION - Neurological Exam Neurological Exam: Alert, Awake, Oriented x3 Neuro motor strength exam: Left Upper Extremity: 5 - Psychiatric Exam Psychiatric exam: Anxious Assessment and Plan (1) Ischemic ulcer of heel with necrosis of muscle Status: Resolved (2) Gangrene of toe of right foot Status: Resolved (3) Right middle lobe pneumonia Status: Resolved (4) Uncontrolled diabetes mellitus Status: Chronic (5) ESRD on hemodialysis Status: Chronic
[2018-08-27] MEDS: Multivitamin Vitamin B Complex (Nephro-Vite) Tab PO SCH (11:01)
--- NOTE | 2018-08-27 12:18 | CP.PCM.PN ---
Subjective - Date & Time of Evaluation Date of Evaluation: 08/27/18 Time of Evaluation: 12:17 - Subjective Subjective: Nephrology Consultation Note: Assessment: Stable Rt foot cellulitis and Pneumonia Diabetic chronic Kidney Disease (E11.22) Hypertensive Chronic Kidney Disease (I12.0) End stage renal disease (N18.6) dependence on hemodialysis (Z99.2) (MWF) via AVF Anemia (D64.9), Hyperphosphatemia (E83.39), Secondary Hyperparathyroidism (E21.1), HTN (I12.0) hypotension Plan: Will plan for HD MWF schedule as ordered. Continue with Nephrovite 1 tab/day. PRBC as needed for anemia. not on LESLI with dialysis as last Hb 12.7 Continue with phos binders, last phos level: 3.8 BP control with meds as ordered. Patient on RAAS ish lowered to TTS days . stop norvasc. lowered UF goal during HD Glycemic control, Dialysis consistent diet Further work up/management as per primary team Dose meds/antibiotics (if needed) for ESRD status. Avoid fleets enema/magnesium based laxatives. pt stable for d/c from renal perspective when planned. awaiting [facility] placement Thanks for allowing me to participate in care of your patient. Will follow patient with you. Please call if any Qs Dr Edwardo Valenzuela Office: [phone] Chief Complaint;Rt toe infection and cough HPI: Pt is a 78 year old male with PMHx of DM, HTN, Hyperlipidemia, ESRD on dialysis (MWF), CAD s/p CABG, AVR, BPH and Bipolar disorder presents to ED compl aining of cough x 2 weeks and redness, swelling of the right big toe and admitted for cellulitis, pneumonia. Renal consult requested for ESRD management. last HD friday. otherwise feels usual health ROS: Cardiovascular: No chest pain. Pulmonary: No shortness of breath . Gastrointestinal: denies abdominal pain No nausea. No vomiting. Genitourinary: No pain while urinating. Denies blood in urine. All other negative except as mentioned in HPI Physical Examination: General Appearance: Comfortable, in no acute respiratory distress, co-operative . Vitals reviewed and noted as below Head; Atraumatic, normocephalic ENT: no ulcers no thrush. Tongue is midline. Oropharynx: no rash or ulcers. EYES: Pupils are equal, round and reactive to light accommodation. Eye muscles and extraocular movement intact. Sclera is anicteric. Neck; supple no lymphadenopathy, no thyromegaly or bruit Lungs: Normal respiratory rate/effort. Breath sounds bilateral equal and clear Heart: Normal rate. s1s2 normal. No rub or gallop. Extremities: no edema. No varicose veins. Neurological: Patient is alert, awake and oriented to person, place and time. No focal deficit. Strength bilateral appropriate and equal Skin: Warm and dry. Normal turgor. No rash. Palpitation: Normal elasticity for age Abdomen: Abdomen is soft. Bowel sounds +. There is no abdominal tenderness, no guarding/rigidity or organomegaly Psych: normal insight and normal affect/mood MSK: no joint tenderness or swelling. Digits and nails normal, no deformity : kidney or bladder not palpable Access: AVF Labs/imaging reviewed. Past medical history, past surgical history, family history, social history, allergy reviewed and noted as below Family Hx: no hx of CKD. Non contributory Objective - Vital Signs/Intake and Output Vital Signs (last 24 hours): Temp Pulse Resp BP Pulse Ox 97.9 F 78 20 103/57 L 96 08/27/18 07:52 08/27/18 07:52 08/27/18 07:52 08/27/18 07:52 08/27/18 07:52 - Medications Medications: Current Medications Acetaminophen (Tylenol 325mg Tab) 650 mg PO Q6 PRN PRN Reason: Fever >100.4 F Acetaminophen (Tylenol 325mg Tab) 650 mg PO Q6 PRN PRN Reason: Pain, moderate (4-7) Calcium Acetate (Phoslo) 1,334 mg PO BIDCC [facility] Last Admin: 08/27/18 11:01 Dose: 1,334 mg Carvedilol (Coreg) 6.25 mg PO DAILY [facility] Last Admin: 08/27/18 11: Dose: 6.25 mg Docusate Sodium (Colace) 100 mg PO BID [facility] Last Admin: 08/27/18 11:01 Dose: 100 mg Glimepiride (Amaryl) 4 mg PO DAILY [facility] Last Admin: 08/27/18 11:01 Dose: 4 mg Vancomycin HCl 500 mg/ Sodium (Chloride) 100 mls [facility]; Protocol Last Admin: 08/26/18 17:30 Dose: 100 mls/hr Insulin Aspart (Novolog) 0 unit SC ACHS [facility]; Protocol Last Admin: 08/27/18 07:45 Dose: Not Given Insulin Glargine (Lantus) 40 unit SC HS [facility] Last Admin: 08/26/18 21:42 Dose: 40 u Lamotrigine (Lamictal) 25 mg PO BID [facility] Last Admin: 08/27/18 11:01 Dose: 25 mg Losartan Potassium (Cozaar) 100 mg PO DAILY [facility] Last Admin: 08/27/18 11:02 Dose: Not Given Tamsulosin HCl (Flomax) 0.4 mg PO DAILY [facility] Last Admin: 08/27/18 11:04 Dose: 0.4 mg Vitamin B Complex/Vit C/Folic Acid (Nephro-Poly) 1 tab PO 0800 [facility] Last Admin: 08/27/18 11:01 Dose: 1 tab - Labs Labs: 08/26/18 13:51 08/26/18 13:51 PT 12.5 SECONDS (9.7-12.2) H 08/04/18 11:56 INR 1.1 08/04/18 11:56 APTT 28 SECONDS (21-34) 08/04/18 11:56
--- NOTE | 2018-08-27 17:39 | CP.PCM.PN ---
Subjective - Date & Time of Evaluation Date of Evaluation: 08/27/18 Time of Evaluation: 17:38 - Subjective Subjective: Pt seen at bedside for f/u ulcer. Pt in NAD. No acute change in status of wound. Pt for [facility] today. Objective - Vital Signs/Intake and Output Vital Signs (last 24 hours): Temp Pulse Resp BP Pulse Ox 98 F 69 20 122/69 97 08/27/18 15:35 08/27/18 15:35 08/27/18 15:35 08/27/18 15:35 08/27/18 15:35 - Medications Medications: Current Medications Acetaminophen (Tylenol 325mg Tab) 650 mg PO Q6 PRN PRN Reason: Fever >100.4 F Acetaminophen (Tylenol 325mg Tab) 650 mg PO Q6 PRN PRN Reason: Pain, moderate (4-7) Calcium Acetate (Phoslo) 1,334 mg PO BIDCC [facility] Last Admin: 08/27/18 11:01 Dose: 1,334 mg Carvedilol (Coreg) 6.25 mg PO DAILY [facility] Last Admin: 08/27/18 11:01 Dose: 6.25 mg Docusate Sodium (Colace) 100 mg PO BID [facility] Last Admin: 08/27/18 11:01 Dose: 100 mg Glimepiride (Amaryl) 4 mg PO DAILY [facility] Last Admin: 08/27/18 11:01 Dose: 4 mg Vancomycin HCl 500 mg/ Sodium (Chloride) 100 mls @ 100 mls/hr IVPB MWF [facility]; Protocol Last Admin: 08/26/18 17:30 Dose: 100 mls/hr Insulin Aspart (Novolog) 0 unit SC ACHS [facility]; Protocol Last Admin: 08/27/18 13:18 Dose: 6 units Insulin Glargine (Lantus) 40 unit SC HS [facility] Last Admin: 08/26/18 21:42 Dose: 40 u Lamotrigine (Lamictal) 25 mg PO BID [facility] Last Admin: 08/27/18 11:01 Dose: 25 mg Losartan Potassium (Cozaar) 100 mg PO TTS [facility] Tamsulosin HCl (Flomax) 0.4 mg PO DAILY [facility] Last Admin: 08/27/18 11:04 Dose: 0.4 mg Vitamin B Complex/Vit C/Folic Acid (Nephro-Poly) 1 tab PO 0800 [facility] Last Admin: 08/27/18 11:01 Dose: 1 tab - Labs Labs: 08/26/18 13:51 08/26/18 13:51 PT 12.5 SECONDS (9.7-12.2) H 08/04/18 11:56 INR 1.1 08/04/18 11:56 APTT 28 SECONDS (21-34) 08/04/18 11:56
[2018-08-27] MEDS: (Lantus) Insulin Glargine, Recombinant SC SCH (22:26)
--- NOTE | 2018-08-27 23:21 | CP.PCM.PN ---
Subjective - Date & Time of Evaluation Date of Evaluation: 08/27/18 Time of Evaluation: 16:00 - Subjective Subjective: Patient has no complaint. Awaiting transfer to subacute rehabilitation. Objective - Vital Signs/Intake and Output Vital Signs (last 24 hours): Temp Pulse Resp BP Pulse Ox 98 F 69 20 122/69 97 08/27/18 15:35 08/27/18 15:35 08/27/18 15:35 08/27/18 15:35 08/27/18 15:35 - Medications Medications: Current Medications Acetaminophen (Tylenol 325mg Tab) 650 mg PO Q6 PRN PRN Reason: Fever >100.4 F Acetaminophen (Tylenol 325mg Tab) 650 mg PO Q6 PRN PRN Reason: Pain, moderate (4-7) Calcium Acetate (Phoslo) 1,334 mg PO [facility]IDCC [facility] Last Admin: 08/27/18 18:03 Dose: 1,334 mg Carvedilol (Coreg) 6.25 mg PO DAILY [facility] Last Admin: 08/27/18 11:01 Dose: 6.25 mg Docusate Sodium (Colace) 100 mg PO BID [facility] Last Admin: 08/27/18 18:03 Dose: 100 mg Glimepiride (Amaryl) 4 mg PO DAILY [facility] Last Admin: 08/27/18 11:01 Dose: 4 mg Vancomycin HCl 500 mg/ Sodium (Chloride) 100 mls @ 100 mls/hr IVPB MWF [facility]; Pr otocol Last Admin: 08/26/18 17:30 Dose: 100 mls/hr Insulin Aspart (Novolog) 0 unit SC ACHS [facility]; Protocol Last Admin: 08/27/18 21:00 Dose: Not Given Insulin Glargine (Lantus) 40 unit SC HS [facility] Last Admin: 08/27/18 22:26 Dose: 40 u Lamotrigine (Lamictal) 25 mg PO BID [facility] Last Admin: 08/27/18 18:04 Dose: 25 mg Losartan Potassium (Cozaar) 100 mg PO TTS [facility] Tamsulosin HCl (Flomax) 0.4 mg PO DAILY [facility] Last Admin: 08/27/18 11:04 Dose: 0.4 mg Vitamin B Complex/Vit C/Folic Acid (Nephro-Poly) 1 tab PO 0800 [facility] Last Admin: 08/27/18 11:01 Dose: 1 tab - Labs Labs: 08/26/18 13:51 08/26/18 13:51 PT 12.5 SECONDS (9.7-12.2) H 08/04/18 11:56 INR 1.1 08/04/18 11:56 APTT 28 SECONDS (21-34) 08/04/18 11:56 - Constitutional Appears: No Acute Distress, Chronically Ill - Head Exam Head Exam: NORMOCEPHALIC - Eye Exam Eye Exam: Normal appearance Pupil Exam: NORMAL ACCOMODATION - ENT Exam ENT Exam: Normal Exam - Neck Exam Neck Exam: Normal Inspection - Respiratory Exam Respiratory Exam: Rhonchi - Cardiovascular Exam Cardiovascular Exam: REGULAR RHYTHM - GI/Abdominal Exam GI & Abdominal Exam: Soft, Normal Bowel Sounds - Rectal Exam Rectal Exam: Deferred - Exam Exam: NORMAL INSPECTION - Extremities Exam Additional comments: Healed right great toe ulcer. - Back Exam Back Exam: NORMAL INSPECTION - Neurological Exam Neurological Exam: Alert, Awake, Oriented x3 - Psychiatric Exam Psychiatric exam: Anxious - Skin Skin Exam: Dry, Warm Assessment and Plan (1) Ischemic ulcer of heel with necrosis of muscle Status: Resolved (2) Gangrene of toe of right foot Status: Resolved (3) Right middle lobe pneumonia Status: Resolved (4) Uncontrolled diabetes mellitus Status: Chronic (5) ESRD on hemodialysis Status: Chronic
[2018-08-28] MEDS: (Novolog) Insulin Aspart, Recombinant 100 u/ml 10 ml vial SC SCH ×4 (07:24→21:59)
[2018-08-28] MEDS: Multivitamin Vitamin B Complex (Nephro-Vite) Tab PO SCH (07:52)
[2018-08-28 08:30] LABS: HEPATITIS B SURFACE AG Negative (NEGATIVE)
[2018-08-28 08:36] LABS: HEPATITIS A IGM NEGATIVE (NEGATIVE); HEPATITIS B CORE AB NEGATIVE (NEGATIVE)
[2018-08-28 08:48] LABS: HEPATITIS C ANTIBODY NEGATIVE (NEGATIVE)
--- NOTE | 2018-08-28 08:48 | CP.PCM.PN ---
Subjective - Date & Time of Evaluation Date of Evaluation: 08/28/18 Time of Evaluation: 08:48 - Subjective Subjective: Podiatry Progress Note - Dr. Rodriguez Jenkins 78 y/o male seen and evaluated this morning for bilateral heel deep tissue injury and healed right hallux ulceration. Patient is seen resting comfortably in bed, in NAD, alert and awake. Denies any acute overnight events. Denies any pain to the lower extremities or any new pedal complaints. Denies F/C/N/V/CP/SOB Objective - Vital Signs/Intake and Output Vital Signs (last 24 hours): Temp Pulse Resp BP Pulse Ox 97.7 F 69 20 120/67 100 08/27/18 23:37 08/27/18 23:37 08/27/18 23:37 08/27/18 23:37 08/27/18 23:37 - Medications Medications: Current Medications Acetaminophen (Tylenol 325mg Tab) 650 mg PO Q6 PRN PRN Reason: Fever >100.4 F Acetaminophen (Tylenol 325mg Tab) 650 mg PO Q6 PRN PRN Reason: Pain, moderate (4-7) Calcium Acetate (Phoslo) 1,334 mg PO BIDCC [facility] Last Admin: 08/28/18 07:52 Dose: 1,334 mg Carvedilol (Coreg) 6.25 mg PO DAILY [facility] Last Admin: 08/27/18 11:01 Dose: 6.25 mg Docusate Sodium (Colace) 100 mg PO BID [facility] Last Admin: 08/27/18 18:03 Dose: 100 mg Glimepiride (Amaryl) 4 mg PO DAILY [facility] Last Admin: 08/27/18 11:01 Dose: 4 mg Vancomycin HCl 500 mg/ Sodium (Chloride) 100 mls @ 100 mls/hr IVPB MWF [facility]; Protocol Last Admin: 08/26/18 17:30 Dose: 100 mls/hr Insulin Aspart (Novolog) 0 unit SC ACHS [facility]; Protocol Last Admin: 08/28/18 07:24 Dose: Not Given Insulin Glargine (Lantus) 40 unit SC HS [facility] Last Admin: 08/27/18 22:26 Dose: 40 u Lamotrigine (Lamictal) 25 mg PO BID [facility] Last Admin: 08/27/18 18:04 Dose: 25 mg Losartan Potassium (Cozaar) 100 mg PO TTS [facility] Tamsulosin HCl (Flomax) 0.4 mg PO DAILY [facility] Last Admin: 08/27/18 11:04 Dose: 0.4 mg Vitamin B Complex/Vit C/Folic Acid (Nephro-Poly) 1 tab PO 0800 [facility] Last Admin: 08/28/18 07:52 Dose: 1 tab - Labs Labs: 08/26/18 13:51 08/26/18 13:51 PT 12.5 SECONDS (9.7-12.2) H 08/04/18 11:56 INR 1.1 08/04/18 11:56 APTT 28 SECONDS (21-34) 08/04/18 11:56 - Constitutional Appears: Well, Non-toxic, No Acute Distress - Extremities Exam Additional comments: Lower extremity focused exam: Vasc: DP/PT pulses palpable 2/4 B/L. Temperature gradient warm to cool B/L. CFT < 3 sec to all digits. No pedal edema noted. No signs of ischemic changes or gangrene Derm: Dry healed well epithelialized ulceration to plantar distal tip of hallux with overlying hyperkeratotic tissue and hyperpigmentation of digit noted. No break in skin or soft tissue, malodor, no streaking, no erythema, no active drainage, no fluctuance. Deep tissue injuries noted to bilateral posteroplantar heels. No breaks in skin or soft tissue of heels noted B/L. Neuro: protective sensation grossly intact Ortho: no tenderness to palpation of right great toe or bilateral plantar heels at site of deep tissue injuries - Neurological Exam Neurological Exam: Alert, Awake, Oriented x3 - Psychiatric Exam Psychiatric exam: Normal Affect, Normal Mood Assessment and Plan - Assessment and Plan (Free Text) Assessment: 78 year old male patient with healed right great toe ulceration and bilateral stable heel deep tissue injuries likely secondary to pressure Plan: Patient seen and evaluated this afternoon Discussed plan with attending Dr. Jenkins Foot x-rays show no acute osseous findings, no evidence of osteomyelitis Arterial duplex studies- no significant arterial insufficiency to lower extremities Right distal hallux ulceration completely healed with epithelized layer Heel DTI stable to bilateral lower extremities - bandaged with Optifoam dressing Continue offloading with multipodus boots at all times in bed Wound culture + for MRSA, Corynebacterium Continue abx per ID recommendations Stable per podiatry standpoint, to go to [facility] Upon discharge, patient to follow up with Dr. Jenkins in clinic within 1 week
[2018-08-28] MEDS ORDERED: EPOETIN ALFA 4,000 UNIT/ML ML Dialysis IV SCH (10:00)
--- NOTE | 2018-08-28 14:17 | CP.PCM.PN ---
Subjective - Date & Time of Evaluation Date of Evaluation: 08/28/18 Time of Evaluation: 14:16 - Subjective Subjective: Nephrology Consultation Note: Assessment: Stable Rt foot cellulitis and Pneumonia Diabetic chronic Kidney Disease (E11.22) Hypertensive Chronic Kidney Disease (I12.0) End stage renal disease (N18.6) dependence on hemodialysis (Z99.2) (MWF) via AVF Anemia (D64.9), Hyperphosphatemia (E83.39), Secondary Hyperparathyroidism (E21.1), HTN (I12.0) hypotension Plan: Will plan for HD MWF schedule as ordered. Continue with Nephrovite 1 tab/day. PRBC as needed for anemia. not on LESLI with dialysis as last Hb 12.7 Continue with phos binders, last phos level: 3.8 BP control with meds as ordered. Patient on RAAS ish lowered to TTS days . stop norvasc. lowered UF goal during HD. Glycemic control, Dialysis consistent diet Further work up/management as per primary team Dose meds/antibiotics (if needed) for ESRD status. Avoid fleets enema/magnesium based laxatives. pt stable for d/c from renal perspective when planned. awaiting [facility] placement Thanks for allowing me to participate in care of your patient. Will follow patient with you. Please call if any Qs Dr Edwardo Valenzuela Office: [phone] Chief Complaint;Rt toe infection and cough HPI: Pt is a 78 year old male with PMHx of DM, HTN, Hyperlipidemia, ESRD on dialysis (MWF), CAD s/p CABG, AVR, BPH and Bipolar disorder presents to ED comp laining of cough x 2 weeks and redness, swelling of the right big toe and admitted for cellulitis, pneumonia. Renal consult requested for ESRD management. last HD friday. otherwise feels usual health ROS: Cardiovascular: No chest pain. Pulmonary: No shortness of breath . Gastrointestinal: denies abdominal pain No nausea. No vomiting. Genitourinary: No pain while urinating. Denies blood in urine. All other negative except as mentioned in HPI Physical Examination: seen on HD General Appearance: Comfortable, in no acute respiratory distress, co-operative . Vitals reviewed and noted as below Head; Atraumatic, normocephalic ENT: no ulcers no thrush. Tongue is midline. Oropharynx: no rash or ulcers. EYES: Pupils are equal, round and reactive to light accommodation. Eye muscles and extraocular movement intact. Sclera is anicteric. Neck; supple no lymphadenopathy, no thyromegaly or bruit Lungs: Normal respiratory rate/effort. Breath sounds bilateral equal and clear Heart: Normal rate. s1s2 normal. No rub or gallop. Extremities: no edema. No varicose veins. Neurological: Patient is alert, awake and oriented to person, place and time. No focal deficit. Strength bilateral appropriate and equal Skin: Warm and dry. Normal turgor. No rash. Palpitation: Normal elasticity for age Abdomen: Abdomen is soft. Bowel sounds +. There is no abdominal tenderness, no guarding/rigidity or organomegaly Psych: normal insight and normal affect/mood MSK: no joint tenderness or swelling. Digits and nails normal, no deformity : kidney or bladder not palpable Access: AVF Labs/imaging reviewed. Past medical history, past surgical history, family history, social history, allergy reviewed and noted as below Family Hx: no hx of CKD. Non contributory Objective - Vital Signs/Intake and Output Vital Signs (last 24 hours): Temp Pulse Resp BP Pulse Ox 97.8 F 75 16 127/59 L 100 08/28/18 09:56 08/28/18 09:56 08/28/18 09:56 08/28/18 11:30 08/28/18 09:15 - Medications Medications: Current Medications Acetaminophen (Tylenol 325mg Tab) 650 mg PO Q6 PRN PRN Reason: Fever >100.4 F Acetaminophen (Tylenol 325mg Tab) 650 mg PO Q6 PRN PRN Reason: Pain, moderate (4-7) Calcium Acetate (Phoslo) 1,334 mg PO BIDCC [facility] Last Admin: 08/28/18 07:52 Dose: 1,334 mg Carvedilol (Coreg) 6.25 mg PO DAILY [facility] Last Admin: 08/28/18 09:19 Dose: Not Given Docusate Sodium (Colace) 100 mg PO BID [facility] Last Admin: 08/28/18 09:19 Dose: Not Given Glimepiride (Amaryl) 4 mg PO DAILY [facility] Last Admin: 08/28/18 09:18 Dose: Not Given Vancomycin HCl 500 mg/ Sodium (Chloride) 100 mls @ 100 mls/hr IVPB MWF [facility]; Protocol Last Admin: 08/28/18 09:19 Dose: Not Given Insulin Aspart (Novolog) 0 unit SC ACHS [facility]; Protocol Last Admin: 08/28/18 11:27 Dose: Not Given Insulin Glargine (Lantus) 40 unit SC HS [facility] Last Admin: 08/27/18 22:26 Dose: 40 u Lamotrigine (Lamictal) 25 mg PO BID [facility] Last Admin: 08/28/18 09:19 Dose: Not Given Losartan Potassium (Cozaar) 100 mg PO TTS [facility] Tamsulosin HCl (Flomax) 0.4 mg PO DAILY [facility] Last Admin: 08/28/18 09:19 Dose: Not Given Vitamin B Complex/Vit C/Folic Acid (Nephro-Poly) 1 tab PO 0800 [facility] Last Admin: 08/28/18 07:52 Dose: 1 tab - Labs Labs: 08/26/18 13:51 08/26/18 13:51 PT 12.5 SECONDS (9.7-12.2) H 08/04/18 11:56 INR 1.1 08/04/18 11:56 APTT 28 SECONDS (21-34) 08/04/18 11:56
--- NOTE | 2018-08-28 19:51 | CP.PCM.PN ---
Subjective - Date & Time of Evaluation Date of Evaluation: 08/28/18 Time of Evaluation: 08:00 - Subjective Subjective: IV rx renewed Objective - Vital Signs/Intake and Output Vital Signs (last 24 hours): Temp Pulse Resp BP Pulse Ox 97.7 F 89 20 99/60 L 95 08/28/18 16:04 08/28/18 16:04 08/28/18 16:04 08/28/18 16:04 08/28/18 16:04 - Medications Medications: Current Medications Acetaminophen (Tylenol 325mg Tab) 650 mg PO Q6 PRN PRN Reason: Fever >100.4 F Acetaminophen (Tylenol 325mg Tab) 650 mg PO Q6 PRN PRN Reason: Pain, moderate (4-7) Calcium Acetate (Phoslo) 1,334 mg PO BIDCC [facility] Last Admin: 08/28/18 17:55 Dose: 1,334 mg Carvedilol (Coreg) 6.25 mg PO DAILY [facility] Last Admin: 08/28/18 09:19 Dose: Not Given Docusate Sodium (Colace) 100 mg PO BID [facility] Last Admin: 08/28/18 18:52 Dose: 100 mg Glimepiride (Amaryl) 4 mg PO DAILY [facility] Last Admin: 08/28/18 09:18 Dose: Not Given Vancomycin HCl 500 mg/ Sodium (Chloride) 100 mls @ 100 mls/hr IVPB MWF [facility]; Protocol Last Admin: 08/28/18 14:46 Dose: 100 mls/hr Insulin Aspart (Novolog) 0 unit SC ACHS [facility]; Protocol Last Admin: 08/28/18 17:10 Dose: 3 units Insulin Glargine (Lantus) 40 unit SC HS [facility] Last Admin: 08/27/18 22:26 Dose: 40 u Lamotrigine (Lamictal) 25 mg PO BID [facility] Last Admin: 08/28/18 18:56 Dose: 25 mg Losartan Potassium (Cozaar) 100 mg PO TTS [facility] Tamsulosin HCl (Flomax) 0.4 mg PO DAILY [facility] Last Admin: 08/28/18 09:19 Dose: Not Given Vitamin B Complex/Vit C/Folic Acid (Nephro-Poly) 1 tab PO 0800 [facility] Last Admin: 08/28/18 07:52 Dose: 1 tab - Labs Labs: 08/26/18 13:51 08/26/18 13:51 PT 12.5 SECONDS (9.7-12.2) H 08/04/18 11:56 INR 1.1 08/04/18 11:56 APTT 28 SECONDS (21-34) 08/04/18 11:56 - Constitutional Appears: Well - Head Exam Head Exam: ATRAUMATIC, NORMAL INSPECTION, NORMOCEPHALIC - Eye Exam Eye Exam: EOMI, Normal appearance, PERRL Pupil Exam: NORMAL ACCOMODATION, PERRL - ENT Exam ENT Exam: Mucous Membranes Moist, Normal Exam - Neck Exam Neck Exam: Full ROM, Normal Inspection. absent: Lymphadenopathy - Respiratory Exam Respiratory Exam: Clear to Ausculation Bilateral, NORMAL BREATHING PATTERN - Cardiovascular Exam Cardiovascular Exam: REGULAR RHYTHM, +S1, +S2. absent: Murmur - GI/Abdominal Exam GI & Abdominal Exam: Soft, Normal Bowel Sounds. absent: Tenderness - Rectal Exam Rectal Exam: NORMAL INSPECTION - Extremities Exam Extremities Exam: Full ROM, Normal Capillary Refill, Normal Inspection. absent: Joint Swelling, Pedal Edema - Back Exam Back Exam: NORMAL INSPECTION - Neurological Exam Neurological Exam: Alert, Awake, CN II-XII Intact, Normal Gait, Oriented x3 - Psychiatric Exam Psychiatric exam: Normal Affect, Normal Mood - Skin Skin Exam: Dry, Intact. absent: Normal Color, Warm Assessment and Plan (1) Gangrene of toe of right foot Status: Resolved (2) Infected ulcer of skin Status: Acute (3) Ischemic ulcer of heel with necrosis of muscle Status: Resolved (4) Pneumonia Status: Acute (5) Right middle lobe pneumonia Status: Resolved (6) ESRD on hemodialysis Status: Chronic (7) Uncontrolled diabetes mellitus Status: Chronic (8) MRSA (methicillin resistant staph aureus) culture positive Status: Acute - Assessment and Plan (Free Text) Assessment: cont wound care IV Vanco
[2018-08-28] MEDS: (Lantus) Insulin Glargine, Recombinant SC SCH (22:01)
--- NOTE | 2018-08-28 23:26 | CP.PCM.PN ---
Subjective - Date & Time of Evaluation Date of Evaluation: 08/28/18 Time of Evaluation: 20:00 - Subjective Subjective: Patient has no complaint, awaiting transfer to a subacute rehabilitation center. Objective - Vital Signs/Intake and Output Vital Signs (last 24 hours): Temp Pulse Resp BP Pulse Ox 97.7 F 89 20 99/60 L 95 08/28/18 16:04 08/28/18 16:04 08/28/18 16:04 08/28/18 16:04 08/28/18 16:04 Intake and Output: 08/28/18 08/29/18 18:59 06:59 Intake Total 350 Balance 350 - Medications Medications: Current Medications Acetaminophen (Tylenol 325mg Tab) 650 mg PO Q6 PRN PRN Reason: Fever >100.4 F Acetaminophen (Tylenol 325mg Tab) 650 mg PO Q6 PRN PRN Reason: Pain, moderate (4-7) [facility] Last Admin: 08/28/18 17:55 Dose: 1,334 mg Carvedilol (Coreg) 6.25 mg PO DAILY [facility] Last Admin: 08/28/18 09:19 Dose: Not Given Docusate Sodium (Colace) 100 mg PO BID [facility] Last Admin: 08/28/18 18:52 Dose: 100 mg Glimepiride (Amaryl) 4 mg PO DAILY [facility] Last Admin: 08/28/18 09:18 Dose: Not Given Vancomycin HCl 500 mg/ Sodium (Chloride) 100 mls @ 100 mls/hr IVPB MWF [facility]; Protocol Last Admin: 08/28/18 14:46 Dose: 100 mls/hr Insulin Aspart (Novolog) 0 unit SC ACHS [facility]; Protocol Last Admin: 08/28/18 21:59 Dose: Not Given Insulin Glargine (Lantus) 40 unit SC HS [facility] Last Admin: 08/28/18 22:01 Dose: 40 u Lamotrigine (Lamictal) 25 mg PO BID [facility] Last Admin: 08/28/18 18:56 Dose: 25 mg Losartan Potassium (Cozaar) 100 mg PO TTS [facility] Tamsulosin HCl (Flomax) 0.4 mg PO DAILY [facility] Last Admin: 08/28/18 09:19 Dose: Not Given Vitamin B Complex/Vit C/Folic Acid (Nephro-Poly) 1 tab PO 0800 [facility] Last Admin: 08/28/18 07:52 Dose: 1 tab - Labs Labs: 08/26/18 13:51 08/26/18 13:51 PT 12.5 SECONDS (9.7-12.2) H 08/04/18 11:56 INR 1.1 08/04/18 11:56 APTT 28 SECONDS (21-34) 08/04/18 11:56 - Constitutional Appears: No Acute Distress, Chronically Ill - Head Exam Head Exam: NORMAL INSPECTION - Eye Exam Eye Exam: Normal appearance - ENT Exam ENT Exam: Normal Exam - Neck Exam Neck Exam: Normal Inspection - Respiratory Exam Respiratory Exam: Rhonchi - Cardiovascular Exam Cardiovascular Exam: REGULAR RHYTHM - GI/Abdominal Exam GI & Abdominal Exam: Soft, Normal Bowel Sounds - Rectal Exam Rectal Exam: Deferred - Exam Exam: NORMAL INSPECTION - Extremities Exam Extremities Exam: Normal Inspection Additional comments: Healed right great toe ulcer. - Back Exam Back Exam: NORMAL INSPECTION - Neurological Exam Neurological Exam: Alert, Awake, Oriented x3 - Psychiatric Exam Psychiatric exam: Anxious Assessment and Plan (1) Ischemic ulcer of heel with necrosis of muscle Status: Resolved (2) Gangrene of toe of right foot Assessment & Plan: Positive for MRSA.On Vancomycin IV and Bacitracin ointment. Status: Resolved (3) Right middle lobe pneumonia Status: Resolved (4) Uncontrolled diabetes mellitus Status: Chronic (5) ESRD on hemodialysis Status: Chronic
[2018-08-29] MEDS: (Novolog) Insulin Aspart, Recombinant 100 u/ml 10 ml vial SC SCH ×4 (08:24→21:28)
[2018-08-29 08:40] LABS: BASO # 0.1 K/uL (0.0-0.2); BASO % 1.4 % (0.0-2.0); EOS # 0.2 K/uL (0.0-0.7); EOS % 2.8 % (0.0-4.0); HEMOGLOBIN 13.1 g/dL (12.0-18.0); LYMPH # 1.7 K/uL (1.0-4.3); LYMPH % 20.4 % (20.0-40.0); MEAN CELL VOLUME 88.9 fL (80.0-94.0); MEAN CORPUSCULAR HEMOGLOBIN 29.2 pg (27.0-31.0); MEAN CORPUSCULAR HGB CONC 32.8 g/dL (33.0-37.0); MEAN PLATELET VOLUME 9.6 fL (7.2-11.7); MONO # 0.9 K/uL (0.0-0.8); MONO % 11.2 % (0.0-10.0); NEUT # 5.4 K/uL (1.8-7.0); NEUT % 64.2 % (50.0-75.0); RBC 4.48 Mil/uL (4.40-5.90); RED CELL DISTRIBUTION WIDTH 17.2 % (11.5-14.5); WHITE BLOOD COUNT 8.4 K/uL (4.8-10.8)
[2018-08-29] MEDS: Multivitamin Vitamin B Complex (Nephro-Vite) Tab PO SCH (08:54)
[2018-08-29 09:26] LABS: ALB/GLOB RATIO 1.1 (1.0-2.1); ALBUMIN 4.5 g/dL (3.5-5.0); CALCIUM 9.7 mg/dl (8.6-10.4)
--- NOTE | 2018-08-29 13:01 | CP.PCM.PN ---
Subjective - Date & Time of Evaluation Date of Evaluation: 08/29/18 Time of Evaluation: 13:00 - Subjective Subjective: Podiatry Progress Note - Dr. Rodriguez Jenkins 78 y/o male seen and evaluated this morning for bilateral heel deep tissue injury and healed right hallux ulceration. Patient is seen resting comfortably in bed, in NAD, alert and awake. Denies any acute overnight events. Denies any pain to the lower extremities or any new pedal complaints. Denies F/C/N/V/CP/SOB Objective - Vital Signs/Intake and Output Vital Signs (last 24 hours): Temp Pulse Resp BP Pulse Ox 97.9 F 75 20 100/63 98 08/29/18 07:30 08/29/18 07:30 08/29/18 07:30 08/29/18 07:30 08/29/18 07:30 Intake and Output: 08/29/18 08/29/18 06:59 18:59 Intake Total 350 Balance 350 - Medications Medications: Current Medications Acetaminophen (Tylenol 325mg Tab) 650 mg PO Q6 PRN PRN Reason: Fever >100.4 F Acetaminophen (Tylenol 325mg Tab) 650 mg PO Q6 PRN PRN Reason: Pain, moderate (4-7) Cal[facility] ([facility] Last Admin: 08/29/18 08:54 Dose: 1,334 mg Carvedilol (Coreg) 6.25 mg PO DAILY [facility] Last Admin: 08/29/18 09:47 Dose: Not Given Docusate Sodium (Colace) 100 mg PO BID [facility] Last Admin: 08/29/18 09:47 Dose: 100 mg Glimepiride (Amaryl) 4 mg PO DAILY [facility] Last Admin: 08/29/18 09:47 Dose: 4 mg Vancomycin HCl 500 mg/ Sodium (Chloride) 100 mls @ 100 mls/hr IVPB MWF [facility]; Protocol Last Admin: 08/28/18 14:46 Dose: 100 mls/hr Insulin Aspart (Novolog) 0 unit SC ACHS [facility]; Protocol Last Admin: 08/29/18 08:24 Dose: 2 units Insulin Glargine (Lantus) 40 unit SC HS [facility] Last Admin: 08/28/18 22:01 Dose: 40 u Lamotrigine (Lamictal) 25 mg PO BID [facility] Last Admin: 08/29/18 09:47 Dose: 25 mg Losartan Potassium (Cozaar) 100 mg PO TTS [facility] Last Admin: 08/29/18 09:47 Dose: Not Given Tamsulosin HCl (Flomax) 0.4 mg PO DAILY [facility] Last Admin: 08/29/18 09:47 Dose: 0.4 mg Vitamin B Complex/Vit C/Folic Acid (Nephro-Poly) 1 tab PO 0800 [facility] Last Admin: 08/29/18 08:54 Dose: 1 tab - Labs Labs: 08/29/18 08:31 08/29/18 08:31 PT 12.5 SECONDS (9.7-12.2) H 08/04/18 11:56 INR 1.1 08/04/18 11:56 APTT 28 SECONDS (21-34) 08/04/18 11:56 - Constitutional Appears: Well, Non-toxic, No Acute Distress - Head Exam Head Exam: ATRAUMATIC, NORMOCEPHALIC - Extremities Exam Additional comments: Lower extremity focused exam: Vasc: DP/PT pulses palpable 2/4 B/L. Temperature gradient warm to cool B/L. CFT < 3 sec to all digits. No pedal edema noted. No signs of ischemic changes or gangrene Derm: Dry healed well epithelialized ulceration to plantar distal tip of hallux with overlying hyperkeratotic tissue and hyperpigmentation of digit noted. No break in skin or soft tissue, malodor, no streaking, no erythema, no active drainage, no fluctuance. Deep tissue injuries noted to bilateral posteroplantar heels. No breaks in skin or soft tissue of heels noted B/L. Neuro: protective sensation grossly intact Ortho: no tenderness to palpation of right great toe or bilateral plantar heels at site of deep tissue injuries - Neurological Exam Neurological Exam: Alert, Awake, Oriented x3 - Psychiatric Exam Psychiatric exam: Normal Affect, Normal Mood Assessment and Plan - Assessment and Plan (Free Text) Assessment: 78 year old male patient with healed right great toe ulceration and bilateral stable heel deep tissue injuries likely secondary to pressure Plan: Patient seen and evaluated this afternoon Discussed plan with attending Dr. Jenkins Foot x-rays show no acute osseous findings, no evidence of osteomyelitis Arterial duplex studies- no significant arterial insufficiency to lower extremities Right distal hallux ulceration completely healed with epithelized layer Heel DTI stable to bilateral lower extremities - bandaged with Optifoam dressing Continue offloading with multipodus boots at all times in bed Wound culture + for MRSA, Corynebacterium Continue abx per ID recommendations Stable per podiatry standpoint, to go to [facility] Upon discharge, patient to follow up with Dr. Jenkins in clinic within 1 week
--- NOTE | 2018-08-29 17:17 | CP.PCM.PCO ---
Addendum Addendum: 08/29/18 17:16 Paged for vomiting x1. Patient was not in acute distress. Endorsed nausea. Will give IV Zofran x1 and change diet to clear liquids. Advance diet as tolerated.
[2018-08-29 21:14] LABS: MEAN CELL VOLUME 88.5 fL (80.0-94.0); MEAN CORPUSCULAR HEMOGLOBIN 29.4 pg (27.0-31.0); MEAN CORPUSCULAR HGB CONC 33.3 g/dL (33.0-37.0); MEAN PLATELET VOLUME 9.9 fL (7.2-11.7); RBC 4.42 Mil/uL (4.40-5.90); RED CELL DISTRIBUTION WIDTH 16.6 % (11.5-14.5); WHITE BLOOD COUNT 9.3 K/uL (4.8-10.8)
[2018-08-29] MEDS: (Lantus) Insulin Glargine, Recombinant SC SCH (21:42)
[2018-08-29] MEDS ORDERED: Cefepime 1 GM in Sodium Chloride 0.9% 50 ML IVPB SCH (22:00)
[2018-08-29] MEDS: Cefepime IV 1 gm in Dextrose 1 GM/50 ML BAG IVPB SCH (22:13)
--- NOTE | 2018-08-29 23:32 | CP.PCM.PN ---
Subjective - Date & Time of Evaluation Date of Evaluation: 08/29/18 Time of Evaluation: 20:30 - Subjective Subjective: Patient vomited twice today with fever. On IV Vancomycin. Will do stat CBC, blood and urine cultures. To ask ID to re-evaluate. Objective - Vital Signs/Intake and Output Vital Signs (last 24 hours): Temp Pulse Resp BP Pulse Ox 100.6 F H 99 H 16 134/70 100 08/29/18 22:39 08/29/18 20:32 08/29/18 20:32 08/29/18 20:32 08/29/18 15:47 Intake and Output: 08/29/18 08/30/18 18:59 06:59 Intake Total 60 150 Output Total 200 Balance -140 150 - Medications Medications: Current Medications Acetaminophen (Tylenol 325mg Tab) 650 mg PO Q6 PRN PRN Reason: Fever >100.4 F Acetaminophen (Tylenol 325mg Tab) 650 mg PO Q6 PRN PRN Reason: Pain, moderate (4-7) [facility] ([facility] Last Admin: 08/29/18 16:51 Dose: 1,334 mg Carvedilol (Coreg) 6.25 mg PO DAILY [facility] Last Admin: 08/29/18 09:47 Dose: Not Given Docusate Sodium (Colace) 100 mg PO BID [facility] Last Admin: 08/29/18 17:47 Dose: 100 mg Glimepiride (Amaryl) 4 mg PO DAILY [facility] Last Admin: 08/29/18 09:47 Dose: 4 mg Vancomycin HCl 500 mg/ Sodium (Chloride) 100 mls @ 100 mls/hr IVPB MWF [facility]; Protocol Last Admin: 08/28/18 14:46 Dose: 100 mls/hr Cefepime HCl (Maxipime Iv 1 Gm Premix) 1 gm in 50 mls @ 100 mls/hr IVPB DAILY@2200 [facility]; Protocol Last Admin: 08/29/18 22:13 Dose: 100 mls/hr Insulin Aspart (Novolog) 0 unit SC [facility]; Protocol Last Admin: 08/29/18 21:28 Dose: Not Given Insulin Glargine (Lantus) 40 unit SC [facility] Last Admin: 08/29/18 21:42 Dose: Not Given Lamotrigine (Lamictal) 25 mg PO BID [facility] Last Admin: 08/29/18 17:47 Dose: 25 mg Losartan Potassium (Cozaar) 100 mg PO TTS [facility] Last Admin: 08/29/18 09:47 Dose: Not Given Ondansetron HCl (Zofran Inj) 4 mg IVP Q4H PRN PRN Reason: Nausea/Vomiting Tamsulosin HCl (Flomax) 0.4 mg PO DAILY [facility] Last Admin: 08/29/18 09:47 Dose: 0.4 mg Vitamin B Complex/Vit C/Folic Acid (Nephro-Poly) 1 tab PO 0800 [facility] Last Admin: 08/29/18 08:54 Dose: 1 tab - Labs Labs: 08/29/18 21:11 08/29/18 08:31 PT 12.5 SECONDS (9.7-12.2) H 08/04/18 11:56 INR 1.1 08/04/18 11:56 APTT 28 SECONDS (21-34) 08/04/18 11:56 - Constitutional Appears: No Acute Distress, Chronically Ill - Head Exam Head Exam: NORMOCEPHALIC - Eye Exam Eye Exam: Normal appearance - ENT Exam ENT Exam: Normal Exam - Neck Exam Neck Exam: Normal Inspection - Respiratory Exam Respiratory Exam: Clear to Ausculation Bilateral - Cardiovascular Exam Cardiovascular Exam: REGULAR RHYTHM, Murmur - GI/Abdominal Exam GI & Abdominal Exam: Soft, Normal Bowel Sounds - Rectal Exam Rectal Exam: Deferred - Extremities Exam Extremities Exam: Normal Inspection - Back Exam Back Exam: NORMAL INSPECTION - Neurological Exam Neurological Exam: Alert, Awake, Oriented x3 - Psychiatric Exam Psychiatric exam: Anxious Assessment and Plan (1) Ischemic ulcer of heel with necrosis of muscle Status: Resolved (2) Gangrene of toe of right foot Status: Resolved (3) Right middle lobe pneumonia Status: Resolved (4) Uncontrolled diabetes mellitus Status: Chronic (5) ESRD on hemodialysis Status: Chronic
[2018-08-30] MEDS ORDERED: Dextrose 5%/0.45% NS 1,000 ML IV SCH (08:00)
--- NOTE | 2018-08-30 08:01 | RAD ---
Chest x-ray single frontal view HISTORY: Fever. COMPARISON: 08/11/2018 FINDINGS: Mild venous congestion. Patchy increased markings at the left lung base with question small left pleural effusion. Right hilar prominence. Status post median sternotomy. Atherosclerotic calcification at the aorta. Mild cardiomegaly. Impression: Mild venous congestion. Patchy increased markings at the left lung base with question small left pleural effusion. Right hilar prominence. Status post median sternotomy. Atherosclerotic calcification at the aorta. Mild cardiomegaly.
[2018-08-30] MEDS: Multivitamin Vitamin B Complex (Nephro-Vite) Tab PO SCH (08:47)
[2018-08-30] MEDS: (Novolog) Insulin Aspart, Recombinant 100 u/ml 10 ml vial SC SCH ×3 (08:47→21:40)
--- NOTE | 2018-08-30 10:02 | PCM.RRT ---
LAP MAKER Nurses Assessment - Situation Date: 08/26/18 Time LAP MAKER was called: 14:35 LAP MAKER Responder Arrival Time:: 14:40 LAP MAKER Location:: Med/Surg Room Number: 554 P LAP MAKER Reason for Call: Hypotension LAP MAKER Called By: RN - IV IV Inserted during LAP MAKER?: No IV Fluids Initiated During LAP MAKER?: none - Respiratory LAP MAKER Delivery Method: Nasal Cannula @L/min (2) Received Nebulizer Treatments: No Was the Patient Ventilated with Bag/Mask 100% O2?: No Secretions Suctioned?: No Was the Patient Intubated?: No Was the Patient Placed on a Ventilator?: No - Medication Medications Administered During LAP MAKER: none - Diagnostic Test Ordered EKG: No Chest X-Ray: No CT Scan: No - Stat Labs Ordered LAP MAKER Stat Labs Ordered: CBC, BMP, LACTIC ACID, BLOOD C&S X2, ABG CPR started during LAP MAKER?: No - Vital Signs Vital Signs: Rapid Response Vital Sign Blood Pressure 76/46 Pulse Rate 78 Respiratory Rate 20 Temperature 97.8 F Oxygen Saturation 97 - Kerri Coma Scale Coma Scale Eye Opening: Spontaneous Coma Scale Motor: Obeys Commands Movement Coma Scale Verbal: Confused/able to answer Coma Scale Total: 14 - Sepsis Screen Part 1 Sepsis Screen Part 1: Hypotensive - Sepsis Screen Part 2 Sepsis Screen Part 2: Glucose elevated, Pt not on steroids - Time LAP MAKER Ended Time LAP MAKER Ended: 14:45 - Vital Signs at end of LAP MAKER Vital Signs at end of LAP MAKER: Rapid Response End Vital Sign Blood Pressure 105/57 Pulse Rate 76 Respiratory Rate 20 Temperature 97.4 F O2 Sat by Pulse Oximetry 96 - Recommendations 5) LAP MAKER Level of Care Recommendations: Remain in current setting Notifications: Attending Physician I.Reason for LAP MAKER - A) Acute Change in Patient: (Select all that apply): Acute change in mental status - Neurological Status (Select all that apply): Alert, Responsive, Follows Commands, Disoriented, Confused - Respiratory Oxygen Delivery Method: Nasal Cannula @L/min (3) - Constitutional Appears: Non-toxic, No Acute Distress - Head Head Exam: ATRAUMATIC, NORMAL INSPECTION
[2018-08-30 10:17] LABS: ABG ALLEN TEST POS; ARTERIAL BLOOD GAS PCO2 18 mm/Hg (35-45); ARTERIAL BLOOD GAS PH 7.58 (7.35-7.45); ARTERIAL BLOOD GAS PO2 74 mm/Hg (80-100); ARTERIAL BLOOD GAS TCO2 17.5 mmol/L (22-28)
[2018-08-30] MEDS ORDERED: (Novolin R) Insulin Human Regular 100 units/ml vial SC ONE (10:17)
[2018-08-30] MEDS ORDERED: Calcium Gluconate 4.65 mEq/10 ml Inj IVP ONE (10:19)
[2018-08-30] MEDS ORDERED: Sodium Bicarbonate (8.4%) 50 Meq Syringe IVP ONE (10:20)
[2018-08-30] MEDS ORDERED: Calcium Gluconate 4.65 MEQ in Dextrose 5% In Water 100 ML IV ONE (11:00)
--- NOTE | 2018-08-30 12:35 | CT ---
Date of service: 08/30/2018 PROCEDURE: CT HEAD WITHOUT CONTRAST. HISTORY: Altered mental status COMPARISON: None available. TECHNIQUE: Axial computed tomography images were obtained through the head/brain without intravenous contrast. Radiation dose: Total exam DLP = 1250.62 mGy-cm. This CT exam was performed using one or more of the following dose reduction techniques: Automated exposure control, adjustment of the mA and/or kV according to patient size, and/or use of iterative reconstruction technique. FINDINGS: HEMORRHAGE: No intracranial hemorrhage. BRAIN: No mass effect or edema. Scattered focal lucencies in the subcortical and periventricular white matter suggestive for chronic microvascular ischemic change. Diffuse generalized parenchymal atrophy. Bilateral basal ganglia calcifications. VENTRICLES: Prominent ventricles. CALVARIUM: Unremarkable. PARANASAL SINUSES: Unremarkable as visualized. No significant inflammatory changes. MASTOID AIR CELLS: Unremarkable as visualized. No inflammatory changes. OTHER FINDINGS: Intracranial arterial calcifications. IMPRESSION: No acute intracranial abnormality. Chronic microvascular ischemic changes. Atrophy. If symptoms persists, consider correlation with MRI.
[2018-08-30] MEDS: metroNIDAZOLE IV 500 mg/100 ml 500 MG/100 ML BAG IVPB SCH ×2 (12:39→19:37)
--- NOTE | 2018-08-30 12:46 | CT ---
CT abdomen and pelvis HISTORY: Vomiting. Abdominal pain. COMPARISON: None available. TECHNIQUE: Multiple contiguous axial images were performed through the abdomen and pelvis without the use of intravenous contrast. Subsequently, sagittal and coronal reformatted images were obtained. This CT exam was performed using one or more of the following dose reduction techniques: Automated exposure control, adjustment of the mA and/or kV according to patient size, and/or use of iterative reconstruction technique. Findings: Patchy consolidation at the right lung base. Focal masslike consolidation at the left lung base measuring up to 3.7 centimeters. Clinical correlation. Postsurgical changes of the heart. Liver and gallbladder are preserved. Spleen is preserved. Adrenal glands are preserved. Fatty atrophy of the pancreas. Small hiatal hernia. Atrophic right kidney. 2.4 centimeter low-attenuation lesion in the lower pole of the right kidney demonstrating a Hounsfield unit attenuation of 18, indeterminate. Atrophic left kidney. Urinary bladder is preserved. Prominent seminal vesicles and mild prominence of the prostate. Underdistended and or mildly thickened colon. Fecal retention in the distal colon and rectum. Few scattered colonic the diverticuli. Appendix is visualized and appears within normal limits. Atherosclerotic calcification and plaque within the aorta. Few shotty para-aortic and mesenteric lymph nodes. Small fat containing umbilical hernia. Small fat containing bilateral inguinal hernias. Degenerative changes in the spine with bridging osteophytes. Bridging sclerosis of the bilateral SI joints. Few sclerotic foci seen within the left iliac bone. Prominent endplate degenerative changes and Schmorl's nodes formation is noted from the L3 through S1 vertebral bodies. Impression: 1. Underdistended and or mildly thickened colon. Clinical correlation. Fecal retention in the distal colon and rectum. Few scattered colonic diverticuli. 2. Small hiatal hernia. 3. Focal masslike consolidation at the left lung base measuring up to 3.7 centimeters. Clinical correlation. 4. Atrophic right kidney. 2.4 centimeter low-attenuation lesion in the lower pole of the right kidney demonstrating a Hounsfield unit attenuation of 18, indeterminate. Additional findings as above.
--- NOTE | 2018-08-30 13:32 | RAD ---
Chest x-ray single frontal view HISTORY: Chest pain. Comparison: 08/29/2018 Findings: Mild venous congestion. Right hilar prominence. Status post median sternotomy. Atherosclerotic calcification at the aortic knob. Cardiomegaly. Mild patchy increased markings at the left lung base. Degenerative changes in the spine. Impression: Mild venous congestion. Right hilar prominence. Cardiomegaly. Biapical pleural thickening with upper lobe granulomatous changes. Small nodular density at the left lung apex.
[2018-08-30 14:12] LABS: BASO # 0.1 K/uL (0.0-0.2); BASO % 0.5 % (0.0-2.0); HEMOGLOBIN 11.7 g/dL (12.0-18.0); LYMPH # 0.5 K/uL (1.0-4.3); LYMPH % 3.4 % (20.0-40.0); MEAN CELL VOLUME 88.3 fL (80.0-94.0); MEAN CORPUSCULAR HEMOGLOBIN 28.4 pg (27.0-31.0); MEAN CORPUSCULAR HGB CONC 32.1 g/dL (33.0-37.0); MEAN PLATELET VOLUME 9.8 fL (7.2-11.7); MONO % 7.1 % (0.0-10.0); NEUT # 12.1 K/uL (1.8-7.0); PLATELET COUNT 118 K/uL (130-400); RBC 4.14 Mil/uL (4.40-5.90); RED CELL DISTRIBUTION WIDTH 16.7 % (11.5-14.5); WHITE BLOOD COUNT 13.6 K/uL (4.8-10.8)
[2018-08-30 14:29] LABS: BANDS 6 % (0-2); LYMPHOCYTE 3 % (20-40); MONOCYTE 7 % (0-10); NEUTROPHIL 84 % (50-75); PLATELET ESTIMATE SLIGHTLY DECREASED (NORMAL); TOTAL CELLS COUNTED 100
[2018-08-30 14:30] LABS: ANISOCYTOSIS SLIGHT
--- NOTE | 2018-08-30 14:37 | PCM.RRT ---
<Shania Henson - Last Filed: 08/30/18 15:41> MOTOR VEHICLE PARTS INTERPRETER Nurses Assessment - Situation Date: 08/30/18 Time MOTOR VEHICLE PARTS INTERPRETER was called: 09:53 MOTOR VEHICLE PARTS INTERPRETER Responder Arrival Time:: 09:54 MOTOR VEHICLE PARTS INTERPRETER Location:: Med/Surg Room Number: 554 P MOTOR VEHICLE PARTS INTERPRETER Reason for Call: Change in Mental Status MOTOR VEHICLE PARTS INTERPRETER Called By: RN - IV IV Inserted during MOTOR VEHICLE PARTS INTERPRETER?: No IV Fluids Initiated During MOTOR VEHICLE PARTS INTERPRETER?: none - Respiratory MOTOR VEHICLE [employer]S INTERPRETER Delivery Method: Nasal Cannula @L/min Oxygen Flow Rate: 2 Received Nebulizer Treatments: No Was the Patient Ventilated with Bag/Mask 100% O2?: No Secretions Suctioned?: No Was the Patient Intubated?: No Was the Patient Placed on a Ventilator?: No - Medication Medications Administered During MOTOR VEHICLE PARTS INTERPRETER: none - Diagnostic Test Ordered EKG: Yes Chest X-Ray: Yes CT Scan: Yes (head, A/P) - Stat Labs Ordered MOTOR [employer]S INTERPRETER Stat Labs Ordered: CBC, BMP, LACTIC ACID, BLOOD C&S X2, ABG CPR started during MOTOR VEHICLE PARTS INTERPRETER?: No - Kerri Coma Scale Coma Scale Eye Opening: Spontaneous Coma Scale Motor: Movement to pain stimulus Coma Scale Verbal: Inappropriate words Coma Scale Total: 12 - Sepsis Screen Part 2 Sepsis Screen Part 2: Glucose elevated, Pt not on steroids - Time MOTOR VEHICLE [employer]S INTERPRETER Ended Time MOTOR VEHICLE PARTS INTERPRETER Ended: 10:30 - Recommendations 5) MOTOR VEH[employer]LE [employer]S INTERPRETER Level of Care Recommendations: Remain in current setting Notifications: Attending Physician, Consultations (nephrology- Dr. Horan) I.Reason for MOTOR VEHICLE PARTS INTERPRETER - A) Acute Change in Patient: (Select all that apply): Acute change in mental status Subjective: MOTOR VEHICLE PARTS INTERPRETER called by nurse due to patient not being verbally responsive and vomiting. Patient was evaluated yesterday for vomiting, placed on clear liquids, and placed on aspiration precautions. Patient originally admitted for leg cellulitis. He has ESRD and receives HD on F. Unknown mental baseline. Patient is on lamotrigine for an unknown psychiatric history. Patient did not appear to be in any respiratory distress. He was alert but nonverbal. His right eye was closed, but patient able to open it fully when asked. Vitals were stable- BP elevated. Elevated blood glucose. Patient started to answer "good" to every question asked and was not able to state his name or location. - Neurological Status (Select all that apply): Alert, Follows Commands (some), Disoriented, Confused. absent: Verbal, Aggressive - Respiratory Oxygen Delivery Method: Nasal Cannula @L/min (2) Oxygen Flow Rate: 2 - Constitutional Appears: No Acute Distress - Head Head Exam: ATRAUMATIC, NORMAL INSPECTION - Eyes Eye Exam: EOMI Additional Comments: R eye closed at rest- patient able to open fully when asked - Respiratory Exam Respiratory Exam: Rales (b/l bases), NORMAL BREATHING PATTERN. absent: Accessory Muscle Use, Wheezes, Respiratory Distress - Cardiovascular Exam Cardiovascular Exam: RRR, +S1, +S2 - GI/Abdominal Exam GI & Abdominal Exam: Soft. absent: Distended, Tenderness - Neurological Exam Neurological Exam: Alert, Altered, Awake - Extremities Exam Extremities Exam: absent: Pedal Edema Plan - Assessment of Findings&Treatment Plan - NPO - Aspiration precautions - Stat CBC, CMP, Mg, Phos - Stat Blood, Urine, and Stool Cx - Stat ABG - Stat Lamictal level- hold Lamictal - Stool studies- C. Diff, O&P - Stat EKG - Stat CT head - f/u CT A/P - Sodium bicarb 50 mEq, calcium gluconate, and insulin for elevated potassium (6.6) - Rapid acting insulin for elevated BG (400s) - Accuchecks Q1H - Add Flagyl 500 mg IV Q8H for aspiration PNA - Called attending, Dr. Johnson- no further orders given, states patient is able to have a conversation at baseline - Called patient access registrarDr. Horan- stat dialysis session today <Neri Iqbal - Last Filed: 09/03/18 08:47> MOTOR VEH[employer]LE [employer]S INTERPRETER Nurses Assessment - Vital Signs Vital Signs: Rapid Response Vital Sign Blood Pressure 160/73 Pulse Rate 128 Respiratory Rate 20 Temperature 99.8 F Oxygen Saturation 94 - Vital Signs at end of MOTOR VEH[employer]LE [employer]S INTERPRETER Vital Signs at end of MOTOR VEH[employer]LE [employer]S INTERPRETER: Rapid Response End Vital Sign Blood Pressure 127/73 Pulse Rate 125 Respiratory Rate 20 Temperature 100.0 F O2 Sat by Pulse Oximetry 96 Attending/Attestation - Attestation I have personally seen and examined this patient.: Yes I have fully participated in the care of the patient.: Yes I have reviewed all pertinent clinical information, including history, physical exam and plan: Yes Notes (Text): 09/03/18 08:47 This is a late entry. Care of this patient was discussed with resident Dr. Henson. Neri Iqbal D.O.
[2018-08-30 14:44] LABS: ALB/GLOB RATIO 1.2 (1.0-2.1); ALBUMIN 4.3 g/dL (3.5-5.0); CALCIUM 9.1 mg/dl (8.6-10.4)
[2018-08-30 15:05] LABS: URINE AMORPHOUS SEDIMENT MODERATE /ul (<OCC); URINE BACTERIA RARE (<OCC); URINE BILIRUBIN NEGATIVE (NEGATIVE); URINE BLOOD 1+ (NEGATIVE); URINE CLARITY Hazy (Clear); URINE COLOR Amber (YELLOW); URINE GLUCOSE (UA) 1+ mg/dL (Normal); URINE HYALINE CAST 0-2 /lpf (0-2); URINE LEUKOCYTE ESTERASE NEG Leu/uL (Negative); URINE PROTEIN 3+ mg/dL (NEGATIVE); URINE UROBILINOGEN NORMAL mg/dL (0.2-1.0)
--- NOTE | 2018-08-30 17:09 | CP.PCM.PN ---
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 Mass left base IV rx in progress Objective - Vital Signs/Intake and Output Vital Signs (last 24 hours): Temp Pulse Resp BP Pulse Ox 99 F 99 H 16 91/45 L 98 08/30/18 14:55 08/30/18 14:55 08/30/18 15:30 08/30/18 15:45 08/30/18 15:30 Intake and Output: 08/30/18 08/30/18 06:59 18:59 Intake Total 150 Output Total 200 Balance 150 -200 - Medications Medications: Current Medications Acetaminophen (Tylenol 325mg Tab) 650 mg PO Q6 PRN PRN Reason: Fever >100.4 F Acetaminophen (Tylenol 325mg Tab) 650 mg PO Q6 PRN PRN Reason: Pain, moderate (4-7) [facility] Last Admin: 08/30/18 08:47 Dose: Not Given Carvedilol (Coreg) 6.25 mg PO DAILY [facility] Last Admin: 08/30/18 12:26 Dose: Not Given Docusate Sodium (Colace) 100 mg PO BID [facility] Last Admin: 08/30/18 12:26 Dose: Not Given Glimepiride (Amaryl) 4 mg PO DAILY [facility] Last Admin: 08/30/18 12:26 Dose: Not Given Vancomycin HCl 500 mg/ Sodium (Chloride) 100 mls @ 100 mls/hr IVPB MWF [facility]; Protocol Last Admin: 08/28/18 14:46 Dose: 100 mls/hr Cefepime HCl (Maxipime Iv 1 Gm Premix) 1 gm in 50 mls @ 100 mls/hr IVPB DAILY@2200 [facility]; Protocol Last Admin: 08/29/18 22:13 Dose: 100 mls/hr Metronidazole (Flagyl) 500 mg in 100 mls @ 100 mls/hr IVPB Q8H [facility]; Protocol Last Admin: 08/30/18 12:39 Dose: 100 mls/hr Insulin Aspart (Novolog) 0 unit SC ACHS [facility]; Protocol Last Admin: 08/30/18 12:27 Dose: Not Given Insulin Glargine (Lantus) 40 unit SC HS [facility] Last Admin: 08/29/18 21:42 Dose: Not Given Lamotrigine (Lamictal) 25 mg PO BID [facility] Last Admin: 08/30/18 12:27 Dose: Not Given Losartan Potassium (Cozaar) 100 mg PO TTS [facility] Last Admin: 08/29/18 09:47 Dose: Not Given Ondansetron HCl (Zofran Inj) 4 mg IVP Q4H PRN PRN Reason: Nausea/Vomiting Last Admin: 08/30/18 07:32 Dose: 4 mg Pantoprazole Sodium (Protonix Inj) 40 mg IVP DAILY [facility] Last Admin: 08/30/18 12:33 Dose: 40 mg Sodium Phosphate (Fleet Enema) 135 ml [place] ONCE ONE Stop: 08/30/18 19:01 Tamsulosin HCl (Flomax) 0.4 mg PO DAILY [facility] Last Admin: 08/30/18 12:26 Dose: Not Given Vitamin B Complex/Vit C/Folic Acid (Nephro-Poly) 1 tab PO 0800 [facility] Last Admin: 08/30/18 08:47 Dose: Not Given - Labs Labs: 08/30/18 14:07 08/30/18 14:07 PT 12.5 SECONDS (9.7-12.2) H 08/04/18 11:56 INR 1.1 08/04/18 11:56 APTT 28 SECONDS (21-34) 08/04/18 11:56 - Constitutional Appears: Confused, Chronically Ill - Head Exam Head Exam: NORMOCEPHALIC - Eye Exam Eye Exam: absent: Scleral icterus - ENT Exam ENT Exam: Mucous Membranes Dry - Neck Exam Neck Exam: absent: Lymphadenopathy - Respiratory Exam Respiratory Exam: Decreased Breath Sounds - Cardiovascular Exam Cardiovascular Exam: REGULAR RHYTHM - GI/Abdominal Exam GI & Abdominal Exam: Distended, Soft - Rectal Exam Rectal Exam: Deferred Assessment and Plan (1) Gangrene of toe of right foot Status: Resolved (2) Infected ulcer of skin Status: Acute (3) Ischemic ulcer of heel with necrosis of muscle Status: Resolved (4) Pneumonia Status: Acute (5) Right middle lobe pneumonia Status: Resolved (6) ESRD on hemodialysis Status: Chronic (7) Uncontrolled diabetes mellitus Status: Chronic (8) MRSA (methicillin resistant staph aureus) culture positive Status: Acute - Assessment and Plan (Free Text) Assessment: recultured add merrem
--- NOTE | 2018-08-30 17:31 | CP.PCM.PN ---
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 Continue with Nephrovite 1 tab/day. PRBC as needed for anemia. not on LESLI with dialysis as last Hb 12.7 Continue with phos binders, last phos level: 3.8 BP control with meds as ordered. Patient on RAAS ish lowered to TTS days . stop norvasc. lowered UF goal during HD. Glycemic control, Dialysis consistent diet Further work up/management as per primary team Dose meds/antibiotics (if needed) for ESRD status. Avoid fleets enema/magnesium based laxatives. pt stable for d/c from renal perspective when planned. awaiting [facility] placement Physical Examination: seen on HD General Appearance: Comfortable, in no acute respiratory distress, co-operative . Vitals reviewed and noted as below Head; Atraumatic, normocephalic ENT: no ulcers no thrush. Tongue is midline. Oropharynx: no rash or ulcers. EYES: Eye muscles and extraocular movement intact. Sclera is anicteric. Neck; supple Lungs: Normal respiratory rate/effort. Breath sounds bilateral equal and clear Heart: Normal rate. s1s2 normal. No rub or gallop. Extremities: no edema. No varicose veins. Neurological: Patient is awake and oriented to self . No focal deficit. Strength bilateral appropriate and equal Skin: Warm and dry. Normal turgor. No rash. Palpitation: Normal elasticity for age Abdomen: Abdomen is soft. Bowel sounds +. There is no abdominal tenderness, no guarding/rigidity or organomegaly Psych: normal insight and normal affect/mood Access: AVF Objective - Vital Signs/Intake and Output Vital Signs (last 24 hours): Temp Pulse Resp BP Pulse Ox 99 F 99 H 16 91/45 L 98 08/30/18 14:55 08/30/18 14:55 08/30/18 15:30 08/30/18 15:45 08/30/18 15:30 Intake and Output: 08/30/18 08/30/18 06:59 18:59 Intake Total 150 Output Total 200 Balance 150 -200 - Medications Medications: Current Medications Acetaminophen (Tylenol 325mg Tab) 650 mg PO Q6 PRN PRN Reason: Fever >100.4 F Acetaminophen (Tylenol 325mg Tab) 650 mg PO Q6 PRN PRN Reason: Pain, moderate (4-7) Calcium Acetate (Phoslo) 1,334 mg PO BIDCC [facility] Last Admin: 08/30/18 08:47 Dose: Not Given Carvedilol (Coreg) 6.25 mg PO DAILY [facility] Last Admin: 08/30/18 12:26 Dose: Not Given Docusate Sodium (Colace) 100 mg PO BID [facility] Last Admin: 08/30/18 12:26 Dose: Not Given Glimepiride (Amaryl) 4 mg PO DAILY [facility] Last Admin: 08/30/18 12:26 Dose: Not Given Vancomycin HCl 500 mg/ Sodium (Chloride) 100 mls @ 100 mls/hr IVPB MWF [facility]; Protocol Last Admin: 08/28/18 14:46 Dose: 100 mls/hr Cefepime HCl (Maxipime Iv 1 Gm Premix) 1 gm in 50 mls @ 100 mls/hr IVPB DAILY@2200 [facility]; Protocol Last Admin: 08/29/18 22:13 Dose: 100 mls/hr Metronidazole (Flagyl) 500 mg in 100 mls @ 100 mls/hr IVPB Q8H [facility]; Protocol Last Admin: 08/30/18 12:39 Dose: 100 mls/hr Insulin Aspart (Novolog) 0 unit SC ACHS [facility]; Protocol Last Admin: 08/30/18 12:27 Dose: Not Given Insulin Glargine (Lantus) 40 unit SC HS [facility] Last Admin: 08/29/18 21:42 Dose: Not Given Lamotrigine (Lamictal) 25 mg PO BID [facility] Last Admin: 08/30/18 12:27 Dose: Not Given Losartan Potassium (Cozaar) 100 mg PO TTS [facility] Last Admin: 08/29/18 09:47 Dose: Not Given Ondansetron HCl (Zofran Inj) 4 mg IVP Q4H PRN PRN Reason: Nausea/Vomiting Last Admin: 08/30/18 07:32 Dose: 4 mg Pantoprazole Sodium (Protonix Inj) 40 mg IVP DAILY [facility] Last Admin: 08/30/18 12:33 Dose: 40 mg Sodium Phosphate (Fleet Enema) 135 ml [place] ONCE ONE Stop: 08/30/18 19:01 Tamsulosin HCl (Flomax) 0.4 mg PO DAILY [facility] Last Admin: 08/30/18 12:26 Dose: Not Given Vitamin B Complex/Vit C/Folic Acid (Nephro-Poly) 1 tab PO 0800 [facility] Last Admin: 08/30/18 08:47 Dose: Not Given - Labs Labs: 08/30/18 14:07 08/30/18 14:07 PT 12.5 SECONDS (9.7-12.2) H 08/04/18 11:56 INR 1.1 08/04/18 11:56 APTT 28 SECONDS (21-34) 08/04/18 11:56
[2018-08-30] MEDS: Meropenem 500 MG in Sodium Chloride 0.9% 100 ML IVPB SCH (18:46)
[2018-08-30] MEDS: Cefepime IV 1 gm in Dextrose 1 GM/50 ML BAG IVPB SCH (21:35)
--- NOTE | 2018-08-30 23:08 | CP.PCM.PN ---
Subjective - Date & Time of Evaluation Date of Evaluation: 08/30/18 Time of Evaluation: 15:45 - Subjective Subjective: Patient lethargic, hypotensive, on NPO because of recurrent vomiting. CT scan of the abdomen and pelvis revealed fecal impaction and a LLL infiltrate. On Vacomycin IV and Maxipime IV. If patient remains lethargic in AM, will get a Neurological evaluation and an MRI of the head. Objective - Vital Signs/Intake and Output Vital Signs (last 24 hours): Temp Pulse Resp BP Pulse Ox 97.5 F L 94 H 18 105/63 95 08/30/18 19:57 08/30/18 19:57 08/30/18 19:57 08/30/18 19:57 08/30/18 17:52 Intake and Output: 08/30/18 08/31/18 18:59 06:59 Intake Total 100 250 Output Total 200 Balance -100 250 - Medications Medications: Current Medications Acetaminophen (Tylenol 325mg Tab) 650 mg PO Q6 PRN PRN Reason: Fever >100.4 F Acetaminophen (Tylenol 325mg Tab) 650 mg PO Q6 PRN PRN Reason: Pain, moderate (4-7) Calcium Acetate (Phoslo) 1,334 mg PO BIDCC [facility] Last Admin: 08/30/18 18:15 Dose: Not Given Carvedilol (Coreg) 6.25 mg PO DAILY [facility] Last Admin: 08/30/18 12:26 Dose: Not Given Docusate Sodium (Colace) 100 mg PO BID [facility] Last Admin: 08/30/18 18:12 Dose: 100 mg Glimepiride (Amaryl) 4 mg PO DAILY [facility] Last Admin: 08/30/18 12:26 Dose: Not Given Vancomycin HCl 500 mg/ Sodium (Chloride) 100 mls @ 100 mls/hr IVPB MWF [facility]; Protocol Last Admin: 08/28/18 14:46 Dose: 100 mls/hr Cefepime HCl (Maxipime Iv 1 Gm Premix) 1 gm in 50 mls @ 100 mls/hr IVPB DAILY@2 200 [facility]; Protocol Last Admin: 08/30/18 21:35 Dose: 100 mls/hr Metronidazole (Flagyl) 500 mg in 100 mls @ 100 mls/hr IVPB Q8H [facility]; Protocol Last Admin: 08/30/18 19:37 Dose: 100 mls/hr Meropenem 500 mg/ Sodium (Chloride) 100 mls @ 100 mls/hr IVPB Q12H [facility]; Protocol Last Admin: 08/30/18 18:46 Dose: 100 mls/hr Insulin Aspart (Novolog) 0 unit SC ACHS [facility]; Protocol Last Admin: 08/30/18 21:40 Dose: Not Given Insulin Glargine (Lantus) 40 unit SC HS [facility] Last Admin: 08/29/18 21:42 Dose: Not Given Lamotrigine (Lamictal) 25 mg PO BID [facility] Last Admin: 08/30/18 22:28 Dose: 25 mg Losartan Potassium (Cozaar) 100 mg PO TTS [facility] Last Admin: 08/29/18 09:47 Dose: Not Given Ondansetron HCl (Zofran Inj) 4 mg IVP Q4H PRN PRN Reason: Nausea/Vomiting Last Admin: 08/30/18 07:32 Dose: 4 mg Pantoprazole Sodium (Protonix Inj) 40 mg IVP DAILY [facility] Last Admin: 08/30/18 12:33 Dose: 40 mg Tamsulosin HCl (Flomax) 0.4 mg PO DAILY [facility] Last Admin: 08/30/18 12:26 Dose: Not Given Vitamin B Complex/Vit C/Folic Acid (Nephro-Poly) 1 tab PO 0800 [facility] Last Admin: 08/30/18 08:47 Dose: Not Given - Labs Labs: 08/30/18 14:07 08/30/18 14:07 PT 12.5 SECONDS (9.7-12.2) H 08/04/18 11:56 INR 1.1 08/04/18 11:56 APTT 28 SECONDS (21-34) 08/04/18 11:56 - Constitutional Appears: No Acute Distress, Chronically Ill - Head Exam Head Exam: NORMAL INSPECTION - Eye Exam Eye Exam: Normal appearance - ENT Exam ENT Exam: Normal Exam - Neck Exam Neck Exam: Normal Inspection - Respiratory Exam Respiratory Exam: Rhonchi - Cardiovascular Exam Cardiovascular Exam: REGULAR RHYTHM - Rectal Exam Rectal Exam: Deferred - Extremities Exam Extremities Exam: Normal Inspection - Back Exam Back Exam: NORMAL INSPECTION - Neurological Exam Additional comments: Lethargic. - Skin Skin Exam: Dry, Normal Color Assessment and Plan (1) Ischemic ulcer of heel with necrosis of muscle Status: Resolved (2) Gangrene of toe of right foot Status: Resolved (3) Right middle lobe pneumonia Status: Resolved (4) Uncontrolled diabetes mellitus Status: Chronic (5) ESRD on hemodialysis Status: Chronic (6) Left lower lobe pneumonia Assessment & Plan: On IV Maxipime. Status: Acute
[2018-08-31] MEDS: metroNIDAZOLE IV 500 mg/100 ml 500 MG/100 ML BAG IVPB SCH ×3 (04:02→20:30)
[2018-08-31] MEDS: Meropenem 500 MG in Sodium Chloride 0.9% 100 ML IVPB SCH ×2 (06:25→18:30)
[2018-08-31] MEDS: (Novolog) Insulin Aspart, Recombinant 100 u/ml 10 ml vial SC SCH ×4 (08:49→21:40)
[2018-08-31] MEDS: Multivitamin Vitamin B Complex (Nephro-Vite) Tab PO SCH (08:49)
[2018-08-31 11:41] LABS: HEMOGLOBIN 11.4 g/dL (12.0-18.0); MEAN CELL VOLUME 89.4 fL (80.0-94.0); MEAN CORPUSCULAR HEMOGLOBIN 29.3 pg (27.0-31.0); MEAN CORPUSCULAR HGB CONC 32.8 g/dL (33.0-37.0); MEAN PLATELET VOLUME 10.4 fL (7.2-11.7); RBC 3.9 Mil/uL (4.40-5.90); WHITE BLOOD COUNT 10.1 K/uL (4.8-10.8)
[2018-08-31 12:04] LABS: ALB/GLOB RATIO 1.2 (1.0-2.1); ALBUMIN 3.9 g/dL (3.5-5.0); CALCIUM 7.8 mg/dl (8.6-10.4)
[2018-08-31] MEDS ORDERED: Magnesium Citrate Oral SOL (300 ml) PO ONE (12:15)
[2018-08-31 12:32] LABS: C DIFF TOXIN A B NEGATIVE (NEGATIVE)
--- NOTE | 2018-08-31 13:00 | CP.PCM.PN ---
Subjective - Date & Time of Evaluation Date of Evaluation: 08/31/18 Time of Evaluation: 12:55 - Subjective Subjective: Nephrology Consultation Note: Assessment: Stable Rt foot cellulitis and Pneumonia Diabetic chronic Kidney Disease (E11.22) Hypertensive Chronic Kidney Disease (I12.0) End stage renal disease (N18.6) dependence on hemodialysis (Z99.2) (MWF) via AVF Anemia (D64.9), Hyperphosphatemia (E83.39), Secondary Hyperparathyroidism (E21.1), HTN (I12.0) hypotension. AMS Plan: Will plan for HD MWF schedule as ordered. Continue with Nephrovite 1 tab/day. PRBC as needed for anemia. not on LESLI with dialysis as last Hb 11.4 Continue with phos binders, last phos level: 6.2 BP control with meds as ordered. d/c losartan as BP on low side Glycemic control, Dialysis consistent diet Further work up/management as per primary team Dose meds/antibiotics (if needed) for ESRD status. Please avoid fleets/phos enema/magnesium based laxatives in ESRD patients. ID following Thanks for allowing me to participate in care of your patient. Will follow patient with you. Please call if any Qs Dr Edwardo Valenzuela Office: [phone] Chief Complaint;Rt toe infection and cough HPI: Pt is a 78 year old male with PMHx of DM, HTN, Hyperlipidemia, ESRD on dialysis (MWF), CAD s/p CABG, AVR, BPH and Bipolar disorder presents to ED complaining of cough x 2 weeks and redness, swelling of the right big toe and admitted for cellulitis, pneumonia. Renal consult requested for ESRD management. last HD friday. otherwise feels usual health ROS: [employer] on 08/30/18 for low BP and AMS. underwent HD Cardiovascular: No chest pain. Pulmonary: No shortness of breath . Gastrointestinal: denies abdominal pain No nausea. No vomiting. Genitourinary: No pain while urinating. Denies blood in urine. All other negative except as mentioned in HPI Physical Examination: General Appearance: Comfortable, in no acute respiratory distress, co-operative . Vitals reviewed and noted as below Head; Atraumatic, normocephalic ENT: no ulcers no thrush. Tongue is midline. Oropharynx: no rash or ulcers. EYES: Pupils are equal, round and reactive to light accommodation. Eye muscles and extraocular movement intact. Sclera is anicteric. Neck; supple no lymphadenopathy, no thyromegaly or bruit Lungs: Normal respiratory rate/effort. Breath sounds bilateral equal and clear Heart: Normal rate. s1s2 normal. No rub or gallop. Extremities: no edema. No varicose veins. Neurological: Patient is alert, awake and confused. No focal deficit. Strength bilateral appropriate and equal Skin: Warm and dry. Normal turgor. No rash. Palpitation: Normal elasticity for age Abdomen: Abdomen is soft. Bowel sounds +. There is no abdominal tenderness, no guarding/rigidity or organomegaly Psych: normal insight and normal affect/mood MSK: no joint tenderness or swelling. Digits and nails normal, no deformity : kidney or bladder not palpable Access: AVF Labs/imaging reviewed. Past medical history, past surgical history, family history, social history, allergy reviewed and noted as below Family Hx: no hx of CKD. Non contributory Objective - Vital Signs/Intake and Output Vital Signs (last 24 hours): Temp Pulse Resp BP Pulse Ox 98.2 F 90 20 112/56 L 96 08/31/18 08:00 08/31/18 08:42 08/31/18 08:00 08/31/18 08:00 08/31/18 08:00 Intake and Output: 08/31/18 08/31/18 06:59 18:59 Intake Total 250 Balance 250 - Medications Medications: Current Medications Acetaminophen (Tylenol 325mg Tab) 650 mg PO Q6 PRN PRN Reason: Fever >100.4 F Acetaminophen (Tylenol 325mg Tab) 650 mg PO Q6 PRN PRN Reason: Pain, moderate (4-7) Belladonna/Phenobarbital () 1 tab PO TID [facility] Bisacodyl (Dulcolax) 5 mg PO DAILY [facility] Calcium Acetate (Phoslo) 667 mg PO BIDCC [facility] Carvedilol (Coreg) 6.25 mg PO DAILY [facility] Last Admin: 08/31/18 10:40 Dose: Not Given Docusate Sodium (Colace) 100 mg PO BID [facility] Last Admin: 08/31/18 10:40 Dose: Not Given Glimepiride (Amaryl) 4 mg PO DAILY [facility] Last Admin: 08/31/18 10:40 Dose: Not Given Vancomycin HCl 500 mg/ Sodium (Chloride) 100 mls @ 100 mls/hr IVPB MWF [facility]; Protocol Last Admin: 08/31/18 09:59 Dose: 100 mls/hr Cefepime HCl (Maxipime Iv 1 Gm Premix) 1 gm in 50 mls @ 100 mls/hr IVPB DAILY@2200 [facility]; Protocol Last Admin: 08/30/18 21:35 Dose: 100 mls/hr Metronidazole (Flagyl) 500 mg in 100 mls @ 100 mls/hr IVPB Q8H [facility]; Protocol Last Admin: 08/31/18 04:02 Dose: 100 mls/hr Meropenem 500 mg/ Sodium (Chloride) 100 mls @ 100 mls/hr IVPB Q12H [facility]; Protocol Last Admin: 08/31/18 06:25 Dose: 100 mls/hr Insulin Aspart (Novolog) 0 unit SC ACHS [facility]; Protocol Last Admin: 08/31/18 08:49 Dose: Not Given Insulin Glargine (Lantus) 40 unit SC HS [facility] Last Admin: 08/29/18 21:42 Dose: Not Given Lamotrigine (Lamictal) 25 mg PO BID [facility] Last Admin: 08/31/18 10:40 Dose: Not Given Ondansetron HCl (Zofran Inj) 4 mg IVP Q4H PRN PRN Reason: Nausea/Vomiting Last Admin: 08/30/18 07:32 Dose: 4 mg Pantoprazole Sodium (Protonix Inj) 40 mg IVP DAILY [facility] Last Admin: 08/30/18 12:33 Dose: 40 mg Tamsulosin HCl (Flomax) 0.4 mg PO DAILY [facility] Last Admin: 08/31/18 10:40 Dose: Not Given Vitamin B Complex/Vit C/Folic Acid (Nephro-Poly) 1 tab PO 0800 [facility] Last Admin: 08/31/18 08:49 Dose: Not Given - Labs Labs: 08/31/18 11:36 08/31/18 11:36 PT 12.5 SECONDS (9.7-12.2) H 08/04/18 11:56 INR 1.1 08/04/18 11:56 APTT 28 SECONDS (21-34) 08/04/18 11:56
[2018-08-31] MEDS: Bisacodyl 5mg EC Tab PO SCH (13:21)
[2018-08-31 13:44] LABS: INR 1.2; PROTHROMBIN TIME 12.8 SECONDS (9.7-12.2)
[2018-08-31] MEDS: Belladonna-Phenobarbital PO SCH ×2 (14:29→18:34)
[2018-08-31 16:01] LABS: FECAL LEUKOCYTES NEGATIVE (NEGATIVE)
--- NOTE | 2018-08-31 17:16 | CP.PCM.PN ---
Subjective - Date & Time of Evaluation Date of Evaluation: 08/31/18 Time of Evaluation: 17:14 - Subjective Subjective: Patient more alert today, with new right sided weakness. Afebrile. MRI of the brain ordered. Will ask for a neurological evaluation. Objective - Vital Signs/Intake and Output Vital Signs (last 24 hours): Temp Pulse Resp BP Pulse Ox 98.2 F 98 H 20 112/56 L 96 08/31/18 08:00 08/31/18 12:00 08/31/18 08:00 08/31/18 08:00 08/31/18 08:00 Intake and Output: 08/31/18 08/31/18 06:59 18:59 Intake Total 250 Balance 250 - Medications Medications: Current Medications Acetaminophen (Tylenol 325mg Tab) 650 mg PO Q6 PRN PRN Reason: Fever >100.4 F Acetaminophen (Tylenol 325mg Tab) 650 mg PO Q6 PRN PRN Reason: Pain, moderate (4-7) Belladonna/Phenobarbital () 1 tab PO TID [facility] Last Admin: 08/31/18 14:29 Dose: Not Given Bisacodyl (Dulcolax) 5 mg PO DAILY [facility] Last Admin: 08/31/18 13:21 Dose: 5 mg [facility] ([facility] Carvedilol (Coreg) 6.25 mg PO DAILY [facility] Last Admin: 08/31/18 10:40 Dose: Not Given Docusate Sodium (Colace) 100 mg PO BID [facility] Last Admin: 08/31/18 10:40 Dose: Not Given Glimepiride (Amaryl) 4 mg PO DAILY [facility] Last Admin: 08/31/18 10:40 Dose: Not Given Vancomycin HCl 500 mg/ Sodium (Chloride) 100 mls @ 100 mls/hr IVPB MWF [facility]; Protocol Last Admin: 08/31/18 09:59 Dose: 100 mls/hr Cefepime HCl (Maxipime Iv 1 Gm Premix) 1 gm in 50 mls @ 100 mls/hr IVPB DAILY@2200 [facility]; Protocol Last Admin: 08/30/18 21:35 Dose: 100 mls/hr Metronidazole (Flagyl) 500 mg in 100 mls @ 100 mls/hr IVPB Q8H [facility]; Protocol Last Admin: 08/31/18 11:14 Dose: 100 mls/hr Meropenem 500 mg/ Sodium (Chloride) 100 mls @ 100 mls/hr IVPB Q12H [facility]; Protocol Last Admin: 08/31/18 06:25 Dose: 100 mls/hr Insulin Aspart (Novolog) 0 unit SC ACHS [facility]; Protocol Last Admin: 08/31/18 12:57 Dose: 3 units Insulin Glargine (Lantus) 40 unit SC HS [facility] Last Admin: 08/29/18 21:42 Dose: Not Given Lamotrigine (Lamictal) 25 mg PO BID [facility] Last Admin: 08/31/18 10:40 Dose: Not Given Ondansetron HCl (Zofran Inj) 4 mg IVP Q4H PRN PRN Reason: Nausea/Vomiting Last Admin: 08/30/18 07:32 Dose: 4 mg Pantoprazole Sodium (Protonix Inj) 40 mg IVP DAILY [facility] Last Admin: 08/31/18 10:40 Dose: 40 mg Tamsulosin HCl (Flomax) 0.4 mg PO DAILY [facility] Last Admin: 08/31/18 10:40 Dose: Not Given Vitamin B Complex/Vit C/Folic Acid (Nephro-Poly) 1 tab PO 0800 [facility] Last Admin: 08/31/18 08:49 Dose: Not Given - Labs Labs: 08/31/18 11:36 08/31/18 11:36 PT 12.8 SECONDS (9.7-12.2) H 08/31/18 13:25 INR 1.2 08/31/18 13:25 APTT 29 SECONDS (21-34) 08/31/18 13:25 - Constitutional Appears: No Acute Distress, Chronically Ill - Head Exam Head Exam: NORMAL INSPECTION - Eye Exam Eye Exam: Normal appearance - ENT Exam ENT Exam: Normal Exam - Neck Exam Neck Exam: Normal Inspection - Respiratory Exam Respiratory Exam: Rhonchi Additional comments: Rhonchi left bases. - Cardiovascular Exam Cardiovascular Exam: REGULAR RHYTHM, Murmur - GI/Abdominal Exam GI & Abdominal Exam: Soft, Normal Bowel Sounds - Rectal Exam Rectal Exam: Deferred - Back Exam Additional comments: Right sided weakness. - Neurological Exam Neurological Exam: Alert, Awake Additional comments: Slightly confused. - Psychiatric Exam Psychiatric exam: Anxious - Skin Skin Exam: Dry, Intact Assessment and Plan (1) Ischemic ulcer of heel with necrosis of muscle Status: Resolved (2) Gangrene of toe of right foot Status: Resolved (3) Right middle lobe pneumonia Status: Resolved (4) Uncontrolled diabetes mellitus Status: Chronic (5) ESRD on hemodialysis Status: Chronic (6) Left lower lobe pneumonia Status: Acute (7) Right sided weakness Status: Acute
--- NOTE | 2018-08-31 18:11 | PN ---
DATE: 08/31/2018 LOCATION: 554. SUBJECTIVE: This 78-year-old male seen and examined initially for GI consultation on 08/30/2018 as requested by the admitting medical team, reexamined again today, appears to be somewhat more awake and oriented to name, denies any reported episodes of nausea, vomiting, but mild dyspepsia with some constipation on and off recently. No reported chest pain, palpitations, chills, fever or significant shortness of breath. No reported active GI bleeding. The entire chart is reviewed including but not limited to the most recent lab and radiology study results, current and the previous medication list, current and the previous medical events and today's lab results show white blood cells of 10.1, hemoglobin 11.4, hematocrit 34.8 with thrombocytopenia of 109. Blood glucose level 291. PHYSICAL EXAMINATION: GENERAL: A 78-year-old male. VITAL SIGNS: Afebrile with pulse of 86, respiratory rate 20-22, blood pressure 114/62. HEENT: Showed pale dry oral mucoid membrane. Nonicteric sclerae. LUNGS: Few scattered crepitation. Decreased air entry at bases. HEART: Positive S1 and S2. ABDOMEN: Soft with mild generalized tenderness. No mass or organomegaly. No rebound tenderness or guarding, but positive for abdominal distention. EXTREMITIES: No significant clubbing, cyanosis or edema. NEUROLOGICAL: No reported new neurological deficits, sensory or motor. IMPRESSION: 1. Re-exacerbation of peptic ulcer disease with recurrent nausea and vomiting. 2. Renal failure. 3. Ischemic ulceration of the left foot with gangrenous changes. 4. Reported pneumonia. 5. Poorly controlled diabetes mellitus. 6. End-stage renal disease on hemodialysis. 7. Anemia secondary to above. 8. Abnormal CAT scan of the abdomen and pelvis with possible fecal impaction due to the patient's severe constipation. SUGGESTIONS: 1. Continue current management. 2. Add citrate of magnesium with Dulcolax. 3. . 4. Endoscopic evaluation of the gastrointestinal tract only when the patient is more stable clinically. 5. Further recommendation to follow. Cindy Corrales MD [facility] # [id number]
--- NOTE | 2018-08-31 19:48 | CP.PCM.PN ---
Subjective - Date & Time of Evaluation Date of Evaluation: 08/31/18 Time of Evaluation: 13:45 - Subjective Subjective: Podiatry Progress Note for Dr. Jenkins 78 y/o male seen and evaluated this morning for bilateral heel deep tissue injury and healed right hallux ulceration. Patient is AAO x 3 and NAD, resting comfortably in bed. Denies any pain or any acute overnight events. Denies any further pedal complaints at this time. Denies any recent N/V/F/C/CP/SOB/D Objective - Vital Signs/Intake and Output Vital Signs (last 24 hours): Temp Pulse Resp BP Pulse Ox 98.8 F 103 H 20 111/57 L 97 08/31/18 18:20 08/31/18 18:20 08/31/18 18:20 08/31/18 18:20 08/31/18 18:20 - Medications Medications: Current Medications Acetaminophen (Tylenol 325mg Tab) 650 mg PO Q6 PRN PRN Reason: Fever >100.4 F Acetaminophen (Tylenol 325mg Tab) 650 mg PO Q6 PRN PRN Reason: Pain, moderate (4-7) Belladonna/Phenobarbital () 1 tab PO TID [facility] Last Admin: 08/31/18 18:34 Dose: 1 tab Bisacodyl (Dulcolax) 5 mg PO DAILY [facility] Last Admin: 08/31/18 13:21 Dose: 5 mg Calcium Ac[facility] ([facility]oslo) [facility] Last Admin: 08/31/18 18:33 Dose: 1,334 mg Carvedilol (Coreg) 6.25 mg PO DAILY [facility] Last Admin: 08/31/18 10:40 Dose: Not Given Docusate Sodium (Colace) 100 mg PO BID [facility] Last Admin: 08/31/18 18:34 Dose: 100 mg Glimepiride (Amaryl) 4 mg PO DAILY [facility] Last Admin: 08/31/18 10:40 Dose: Not Given Vancomycin HCl 500 mg/ Sodium (Chloride) 100 mls @ 100 mls/hr IVPB MWF [facility]; Protocol Last Admin: 08/31/18 09:59 Dose: 100 mls/hr Cefepime HCl (Maxipime Iv 1 Gm Premix) 1 gm in 50 mls @ 100 mls/hr IVPB DAILY@2200 [facility]; Protocol Last Admin: 08/30/18 21:35 Dose: 100 mls/hr Metronidazole (Flagyl) 500 mg in 100 mls @ 100 mls/hr IVPB Q8H [facility]; Protocol Last Admin: 08/31/18 11:14 Dose: 100 mls/hr Meropenem 500 mg/ Sodium (Chloride) 100 mls @ 100 mls/hr IVPB Q12H [facility]; Protocol Last Admin: 08/31/18 06:25 Dose: 100 mls/hr Insulin Aspart (Novolog) 0 unit SC ACHS [facility]; Protocol Last Admin: 08/31/18 17:30 Dose: 2 units Insulin Glargine (Lantus) 40 unit SC HS [facility] Last Admin: 08/29/18 21:42 Dose: Not Given Lamotrigine (Lamictal) 25 mg PO BID [facility] Last Admin: 08/31/18 18:35 Dose: 25 mg Ondansetron HCl (Zofran Inj) 4 mg IVP Q4H PRN PRN Reason: Nausea/Vomiting Last Admin: 08/30/18 07:32 Dose: 4 mg Pantoprazole Sodium (Protonix Inj) 40 mg IVP DAILY [facility] Last Admin: 08/31/18 10:40 Dose: 40 mg Tamsulosin HCl (Flomax) 0.4 mg PO DAILY [facility] Last Admin: 08/31/18 10:40 Dose: Not Given Vitamin B Complex/Vit C/Folic Acid (Nephro-Poly) 1 tab PO 0800 [facility] Last Admin: 08/31/18 08:49 Dose: Not Given - Labs Labs: 08/31/18 11:36 08/31/18 11:36 PT 12.8 SECONDS (9.7-12.2) H 08/31/18 13:25 INR 1.2 08/31/18 13:25 APTT 29 SECONDS (21-34) 08/31/18 13:25 - Constitutional Appears: Well, Non-toxic, No Acute Distress - Extremities Exam Additional comments: Lower extremity focused exam: Vasc: DP/PT pulses palpable 2/4 B/L. Temperature gradient warm to warm from proximal to distal WNL. CFT < 3 sec to all digits. No pedal edema noted. No signs of ischemic changes or gangrene Derm: Dry healed well epithelialized ulceration to plantar distal tip of hallux with overlying hyperkeratotic tissue and hyperpigmentation of digit noted. No break in skin or soft tissue, malodor, no streaking, no erythema, no active drainage, no fluctuance. Deep tissue injuries noted to bilateral posteroplantar heels. No breaks in skin or soft tissue of heels noted B/L. Neuro: protective sensation grossly intact Ortho: no tenderness to palpation of right great toe or bilateral plantar heels at site of deep tissue injuries - Neurological Exam Neurological Exam: Alert, Awake, Oriented x3 - Psychiatric Exam Psychiatric exam: Normal Affect, Normal Mood Assessment and Plan - Assessment and Plan (Free Text) Assessment: 78 y/o male seen and evaluated this morning for bilateral heel deep tissue injury and healed right hallux ulceration Plan: Patient seen and evaluated Plan discussed with Dr. Maxwell Afebrile, absent leukocytosis Continue IV abx per ID Foot x-rays show no acute osseous findings, no evidence of osteomyelitis Arterial duplex studies- no significant arterial insufficiency to lower extremities Right distal hallux ulceration completely healed with epithelized layer Heel DTI stable to bilateral lower extremities - bandaged with Optifoam dressing Continue offloading with multipodus boots at all times in bed Wound culture + for MRSA, Corynebacterium Continue abx per ID recommendations Stable per podiatry standpoint to go to [facility] Upon discharge, patient to follow up with Dr. Jenkins in clinic within 1 week
[2018-08-31] MEDS: Cefepime IV 1 gm in Dextrose 1 GM/50 ML BAG IVPB SCH (21:18)
[2018-09-01] MEDS: metroNIDAZOLE IV 500 mg/100 ml 500 MG/100 ML BAG IVPB SCH ×3 (03:28→20:07)
[2018-09-01] MEDS: Meropenem 500 MG in Sodium Chloride 0.9% 100 ML IVPB SCH ×2 (06:02→18:51)
--- NOTE | 2018-09-01 07:03 | CP.PCM.CON ---
History of Present Illness - History of Present Illness History of Present Illness: CONSULTATION DICTATED CALLED TO SEE ME FOR RIGHT SIDED WEAKNESS FLUCTUATING MENTAL STATUS NO CORTICO SPINAL DYSFUNCTION AT PRESENT CERVICAL MYELOPATHY SEVERE NEUROPATHY INVOLVING SMALL AND LARGE FIBER NEEDS MRI/CAROTID EEG FOR PARTIAL COMPLEX SEIZURES NEEDS RECENT ECHO DEPENDS ON HE MAY NEED JUAN J DIABETIC CONTROL AND CONTINE HD THANKS Past Patient History - Infectious Disease Hx of Infectious Diseases: None - Tetanus Immunizations Tetanus Immunization: Unknown - Past Medical History & Family History Past Medical History?: Yes - Past Social History Smoking Status: Former Smoker Alcohol: None Drugs: Denies Home Situation {Lives}: Alone - CARDIAC Hx Congestive Heart Failure: Yes Hx Hypercholesterolemia: Yes Hx Hypertension: Yes Hx Peripheral Edema: Yes (no longer) - PULMONARY Hx Chronic Obstructive Pulmonary Disease (COPD): Yes Hx Pneumonia: Yes - NEUROLOGICAL Hx Dementia: Yes - HEENT Hx HEENT Problems: Yes Hx Cataracts: Yes (bilat iol) - RENAL Hx Chronic Kidney Disease: Yes Hx Dialysis: Yes - ENDOCRINE/METABOLIC Hx Endocrine Disorders: Yes Hx Diabetes Mellitus Type 1: Yes ((+) diabetic neuropathy) - HEMATOLOGICAL/ONCOLOGICAL Hx Blood Disorders: No - INTEGUMENTARY Hx Dermatological Problems: Yes (ble with discoloration) - MUSCULOSKELETAL/RHEUMATOLOGICAL Hx Arthritis: Yes - GASTROINTESTINAL Hx Gastrointestinal Disorders: Yes Hx Gastroesophageal Reflux: Yes - GENITOURINARY/GYNECOLOGICAL Hx Genitourinary Disorders: Yes Hx Prostate Problems: Yes Other/Comment: BPH - PSYCHIATRIC Hx Bipolar Disorder: Yes Hx Substance Use: No - SURGICAL HISTORY Hx Coronary Artery Bypass Graft: Yes (Aortive valve replacement9 Tissue valve ) in 07/2013 at [facility]) - ANESTHESIA Hx Anesthesia: Yes Hx Anesthesia Reactions: No Hx Malignant Hyperthermia: No Meds Allergies/Adverse Reactions: Allergies Allergy/AdvReac Type Severity Reaction Status Date / Time No Known Allergies Allergy Verified 08/04/18 11:09 - Medications Medications: Current Medications Acetaminophen (Tylenol 325mg Tab) 650 mg PO Q6 PRN PRN Reason: Fever >100.4 F Acetaminophen (Tylenol 325mg Tab) 650 mg PO Q6 PRN PRN Reason: Pain, moderate (4-7) Belladonna/Phenobarbital () 1 tab PO TID [facility] Last Admin: 08/31/18 18:34 Dose: 1 tab Bisacodyl (Dulcolax) 5 mg PO DAILY [facility] Last Admin: 08/31/18 13:21 Dose: 5 mg [facility] Last Admin: 08/31/18 18:33 Dose: 1,334 mg Carvedilol (Coreg) 6.25 mg PO DAILY [facility] Last Admin: 08/31/18 10:40 Dose: Not Given Docusate Sodium (Colace) 100 mg PO BID [facility] Last Admin: 08/31/18 18:34 Dose: 100 mg Glimepiride (Amaryl) 4 mg PO DAILY [facility] Last Admin: 08/31/18 10:40 Dose: Not Given Vancomycin HCl 500 mg/ Sodium (Chloride) 100 mls @ 100 mls/hr IVPB MWF [facility]; Protocol Last Admin: 08/31/18 09:59 Dose: 100 mls/hr Cefepime HCl (Maxipime Iv 1 Gm Premix) 1 gm in 50 mls @ 100 mls/hr IVPB DAILY@2200 [facility]; Protocol Last Admin: 08/31/18 21:18 Dose: 100 mls/hr Metronidazole (Flagyl) 500 mg in 100 mls @ 100 mls/hr IVPB Q8H [facility]; Protocol Last Admin: 09/01/18 03:28 Dose: 100 mls/hr Meropenem 500 mg/ Sodium (Chloride) 100 mls @ 100 mls/hr IVPB Q12H [facility]; Protocol Last Admin: 09/01/18 06:02 Dose: 100 mls/hr Insulin Aspart (Novolog) 0 unit SC ACHS [facility]; Protocol Last Admin: 08/31/18 21:40 Dose: Not Given Insulin Glargine (Lantus) [address] [facility] Last Admin: 08/29/18 21:42 Dose: Not Given Lamotrigine (Lamictal) 25 mg PO BID [facility] Last Admin: 08/31/18 18:35 Dose: 25 mg Ondansetron HCl (Zofran Inj) 4 mg IVP Q4H PRN PRN Reason: Nausea/Vomiting Last Admin: 08/30/18 07:32 Dose: 4 mg Pantoprazole Sodium (Protonix Inj) 40 mg IVP DAILY [facility] Last Admin: 08/31/18 10:40 Dose: 40 mg Tamsulosin HCl (Flomax) 0.4 mg PO DAILY [facility] Last Admin: 08/31/18 10:40 Dose: Not Given Vitamin B Complex/Vit C/Folic Acid (Nephro-Poly) 1 tab PO 0800 [facility] Last Admin: 08/31/18 08:49 Dose: Not Given Results - Vital Signs Recent Vital Signs: Last Vital Signs Temp 98.3 F 08/31/18 23:20 Pulse 97 H 08/31/18 23:20 Resp 20 08/31/18 23:20 BP 123/70 08/31/18 23:20 Pulse Ox 96 08/31/18 23:20 - Labs Result Diagrams: 08/31/18 11:36 08/31/18 11:36 Labs: Laboratory Results - last 24 hr 08/26/18 08/30/18 08/31/18 01:46 22:48 11:36 WBC 10.1 RBC 3.90 L Hgb 11.4 L Hct 34.8 L MCV 89.4 MCH 29.3 MCHC 32.8 L RDW 17.0 H Plt Count 109 L MPV 10.4 PT INR APTT Sodium Potassium Chloride Carbon Dioxide Anion Gap BUN Creatinine Est GFR ( Amer) Est GFR (Non-Af Amer) POC Glucose (mg/dL) 152 H Random Glucose Lactic Acid Calcium Phosphorus Magnesium Total Bilirubin AST ALT Alkaline Phosphatase Total Protein Albumin Globulin Albumin/Globulin Ratio Carcinoembryonic Ag CA 19-9 Antigen Stool Leukocytes, Qual Negative C. difficile Ag & Toxin Negative 08/31/18 08/31/18 08/31/18 11:36 11:36 11:43 WBC RBC Hgb Hct MCV MCH MCHC RDW Plt Count MPV PT INR APTT Sodium 138 Potassium 5.6 H Chloride 96 L Carbon Dioxide 26 Anion Gap 21 H BUN 60 H Creatinine 10.2 H* Est GFR ( Amer) 6 Est GFR (Non-Af Amer) 5 POC Glucose (mg/dL) 291 H Random Glucose 287 H D Lactic Acid 1.6 Calcium 7.8 L Phosphorus 6.6 H Magnesium 2.2 Total Bilirubin 0.6 AST 35 ALT 27 Alkaline Phosphatase 91 Total Protein 7.2 Albumin 3.9 Globulin 3.2 Albumin/Globulin Ratio 1.2 Carcinoembryonic Ag CA 19-9 Antigen Stool Leukocytes, Qual C. difficile Ag & Toxin 08/31/18 08/31/18 08/31/18 13:25 13:25 16:25 WBC RBC Hgb Hct MCV MCH MCHC RDW Plt Count MPV PT 12.8 H INR 1.2 APTT 29 Sodium Potassium Chloride Carbon Dioxide Anion Gap BUN Creatinine Est GFR ( Amer) Est GFR (Non-Af Amer) POC Glucose (mg/dL) 214 H Random Glucose Lactic Acid Calcium Phosphorus Magnesium Total Bilirubin AST ALT Alkaline Phosphatase Total Protein Albumin Globulin Albumin/Globulin Ratio Carcinoembryonic Ag 4.0 H CA 19-9 Antigen 5.6 Stool Leukocytes, Qual C. difficile Ag & Toxin 08/31/18 09/01/18 21:05 06:10 WBC RBC Hgb Hct MCV MCH MCHC RDW Plt Count MPV PT INR APTT Sodium Potassium Chloride Carbon Dioxide Anion Gap BUN Creatinine Est GFR ( Amer) Est GFR (Non-Af Amer) POC Glucose (mg/dL) 295 H 330 H Random Glucose Lactic Acid Calcium Phosphorus Magnesium Total Bilirubin AST ALT Alkaline Phosphatase Total Protein Albumin Globulin Albumin/Globulin Ratio Carcinoembryonic Ag CA 19-9 Antigen Stool Leukocytes, Qual C. difficile Ag & Toxin
[2018-09-01] MEDS: (Novolog) Insulin Aspart, Recombinant 100 u/ml 10 ml vial SC SCH ×4 (08:37→21:58)
[2018-09-01] MEDS: Multivitamin Vitamin B Complex (Nephro-Vite) Tab PO SCH (08:37)
[2018-09-01] MEDS: Belladonna-Phenobarbital PO SCH ×3 (09:36→17:26)
[2018-09-01] MEDS: Bisacodyl 5mg EC Tab PO SCH (09:36)
[2018-09-01 09:53] LABS: FOLATE > 20.0 ng/mL
--- NOTE | 2018-09-01 10:53 | CON ---
DATE: 09/01/2018 ATTENDING PHYSICIAN: Neftali Johnson MD LOCATION: Room 554, bed A. REASON FOR CONSULTATION: Right-sided weakness. CHIEF COMPLAINT: The patient was admitted on 08/04/2018 with a history of shortness of breath and infected foot. During the hospitalization been treated with multiple antibiotics as per ID and recently he was found to have a right-sided weakness. From neurological point of view, I was called in to evaluate him for further evaluation. HISTORY OF PRESENT ILLNESS: Mr. Mekhi Sutton is a 78-year-old male who used to be normal and speak bilingual, presenting with productive cough and cellulitis of his foot. During the hospitalization, he was found to have a right-sided weakness. On inquiring the nurses, his mental status is fluctuant. At times, he speaks Palauan. At times, he does not speak at all. His mentation varies at times. No history of fall. No history of involuntary movements. No history of bowel and bladder incontinence. From the documentation, no similar episodes happened in the past. PAST MEDICAL HISTORY: Significant for arthritis, BPH, bipolar disorder, coronary artery disease, CHF, COPD, dementia, diabetes, hypertension, dyslipidemia, diabetic neuropathy, peripheral vascular disease, cellulitis, end-stage renal disease, on dialysis. PAST SURGICAL HISTORY: He did have CABG in 07/2013 and aortic valve replacement (tissue valve). PERSONAL HISTORY: Denies smoking or alcohol use. ALLERGIES: NO KNOWN ALLERGIES. REVIEW OF SYSTEMS: A 12-point system being reviewed. From neuro, change in mental status and right-sided weakness. MEDICATION: Amaryl, glucose, Coreg, , Dulcolax, Flagyl, Flomax, Lamictal, Lantus insulin, Maxipime, meropenem, multivitamins, calcium, Protonix, Zofran. PHYSICAL EXAMINATION: VITAL SIGNS: Blood pressure 123/70, mean artery pressure of 87, respiratory rate 18, temperature 98.3, pulse rate 97. NECK: Supple. No carotid bruits. HEART: Sounds regular with ejection systolic murmur. EXTREMITIES: Poor hygienic foot with bleeding spots and cellulitis. Left leg externally rotated. NEUROLOGIC: Mental Status Examination: He is awake, alert. At the time of entrance, he responded to verbal in Palauan and following a few minutes, he stopped talking, even in Frisian. He does not follow any commands. No staring spell; however, he does not want to move any upper and lower extremities as per command. On forcibly moving his upper extremities, he could keep moving by himself. No involuntary movements noted. Cranial nerve examination: Respond to visual threat. Pupils reactive to light. Extraocular movement markedly decreased in all direction. No facial sensory deficit. Mild facial asymmetry noted on his left side. He moves both upper extremities spontaneously. Sensory tremor noted on outstretched hand with eyes closed, no asterixis. Deep tendon reflexes absent throughout. Plantars are mute on both sides. Sensory examination: Respond to pain on both upper extremities. Coordination: He does not follow. Gait is deferred at this time because of the above description. CONCLUSION: As per my neurological examination and reviewing his history, Mr. 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 Considering his complicated medical history of dyslipidemia, hypertension, cardiac involvement and end-stage renal disease with diabetes mellitus, small vessel as well as large vessel disease, a thromboembolic phenomenon should be ruled out either from carotid or from heart. Significant bilateral distal sensory motor neuropathy which is advanced. The patient also showed a significant atrophy of the first dorsal interossei suggestive of cervical myelopathy as well. The patient shows evidence of dementia of vascular versus mixed type. LABORATORY DATA: WBC 10.1, hemoglobin 11.4, hematocrit 34.8, platelet 109. Sodium 138, potassium , chloride 96, BUN 60, creatinine 10.2, glucose 330, lactic acid 1.6, calcium 7.8, phosphorus 6.6. CEA 4, CA 19-[address] of the head does not show any acute pathology which was done on 08/30/2018, significant subcortical and periventricular ischemic changes consistent with small vessel disease. RECOMMENDATIONS: 1. The patient should be on antiplatelets considering CT of the head does not show any hemorrhagic component. 2. Carotid Doppler to rule out stenosis. 3. Echocardiogram should be done because of cardiac risk factors. If echo is suggestive of left atrial enlargement, the patient should have a transesophageal echocardiogram. 4. Continue antibiotic as per ID. 5. The patient should have a DVT prophylaxis. 6. Continue antihypertensive medication as he has been getting with statin. 7. The patient should have MRI of the brain as recommended. 8. Electroencephalogram to rule out any paroxysmal activities. The patient has been on Lamictal 25 mg b.i.d. which is not explained why he has been on Lamictal either for pain control or seizure at present. The patient should be cautiously watched for fall precaution and aspiration precaution as well. The patient will be followed while he is in the hospital. Nathanael Barraza MD
--- NOTE | 2018-09-01 12:40 | CP.PCM.PN ---
Subjective - Date & Time of Evaluation Date of Evaluation: 09/01/18 Time of Evaluation: 12:39 - Subjective Subjective: Nephrology Consultation Note: Assessment: Stable Rt foot cellulitis and Pneumonia, sepsis Diabetic chronic Kidney Disease (E11.22) Hypertensive Chronic Kidney Disease (I12.0) End stage renal disease (N18.6) dependence on hemodialysis (Z99.2) (MWF) via AVF Anemia (D64.9), Hyperphosphatemia (E83.39), Secondary Hyperparathyroidism (E2 1.1), HTN (I12.0) hypotension. AMS Plan: Will plan for HD MWF schedule as ordered. Continue with Nephrovite 1 tab/day. PRBC as needed for anemia. not on LESLI with dialysis as last Hb 11.4 Continue with phos binders, last phos level: 6.2 BP control with meds as ordered. d/c losartan as BP on low side Glycemic control, Dialysis consistent diet Further work up/management as per primary team Dose meds/antibiotics (if needed) for ESRD status. Please avoid fleets/phos enema/magnesium based laxatives in ESRD patients. ID Neuro following Thanks for allowing me to participate in care of your patient. Will follow patient with you. Please call if any Qs Dr Edwardo Valenzuela Office: [phone] Chief Complaint;Rt toe infection and cough HPI: Pt is a 78 year old male with PMHx of DM, HTN, Hyperlipidemia, ESRD on dialysis (MWF), CAD s/p CABG, AVR, BPH and Bipolar disorder presents to ED complaining of cough x 2 weeks and redness, swelling of the right big toe and admitted for cellulitis, pneumonia. Renal consult requested for ESRD management. last HD friday. otherwise feels usual health ROS: getting EEG. no complaints Physical Examination: General Appearance: Comfortable, in no acute respiratory distress, co-operative . Vitals reviewed and noted as below Head; Atraumatic, normocephalic Lungs: Normal respiratory rate/effort. Breath sounds bilateral equal and clear Heart: Normal rate. s1s2 normal. No rub or gallop. Extremities: no edema. No varicose veins. Abdomen: Abdomen is soft. Bowel sounds +. There is no abdominal tenderness, no guarding/rigidity or organomegaly Access: AVF Labs/imaging reviewed. Past medical history, past surgical history, family history, social history, allergy reviewed and noted as below Family Hx: no hx of CKD. Non contributory Objective - Vital Signs/Intake and Output Vital Signs (last 24 hours): Temp Pulse Resp BP Pulse Ox 97.9 F 88 20 118/68 97 09/01/18 08:00 09/01/18 09:04 09/01/18 08:00 09/01/18 08:00 09/01/18 08:00 Intake and Output: 09/01/18 09/01/18 06:59 18:59 Intake Total 500 Balance 500 - Medications Medications: Current Medications Acetaminophen (Tylenol 325mg Tab) 650 mg PO Q6 PRN PRN Reason: Fever >100.4 F Acetaminophen (Tylenol 325mg Tab) 650 mg PO Q6 PRN PRN Reason: Pain, moderate (4-7) Aspirin (Ecotrin) 81 mg PO DAILY [facility] Last Admin: 09/01/18 09:36 Dose: 81 mg Belladonna/Phenobarbital () 1 tab PO TID [facility] Last Admin: 09/01/18 09:36 Dose: 1 tab Bisacodyl (Dulcolax) 5 mg PO DAILY [facility] Last Admin: 09/01/18 09:36 Dose: 5 mg [facility]cium [facility] ([facility]) [facility] Last Admin: 09/01/18 08:37 Dose: 1,334 mg Carvedilol (Coreg) 6.25 mg PO DAILY [facility] Last Admin: 09/01/18 09:36 Dose: 6.25 mg Docusate Sodium (Colace) 100 mg PO BID [facility] Last Admin: 09/01/18 09:36 Dose: 100 mg Glimepiride (Amaryl) 4 mg PO DAILY [facility] Last Admin: 09/01/18 09:36 Dose: 4 mg Vancomycin HCl 500 mg/ Sodium (Chloride) 100 mls @ 100 mls/hr IVPB MWF [facility]; Protocol Last Admin: 08/31/18 09:59 Dose: 100 mls/hr Cefepime HCl (Maxipime Iv 1 Gm Premix) 1 gm in 50 mls @ 100 mls/hr IVPB DAILY@2200 [facility]; Protocol Last Admin: 08/31/18 21:18 Dose: 100 mls/hr Metronidazole (Flagyl) 500 mg in 100 mls @ 100 mls/hr IVPB Q8H [facility]; Protocol Last Admin: 09/01/18 03:28 Dose: 100 mls/hr Meropenem 500 mg/ Sodium (Chloride) 100 mls @ 100 mls/hr IVPB Q12H [facility]; Protocol Last Admin: 09/01/18 06:02 Dose: 100 mls/hr Insulin Aspart (Novolog) 0 unit SC ACHS [facility]; Protocol Last Admin: 09/01/18 08:37 Dose: 4 units Insulin Glargine (Lantus) 40 unit SC HS [facility] Last Admin: 08/29/18 21:42 Dose: Not Given Lamotrigine (Lamictal) 25 mg PO BID [facility] Last Admin: 09/01/18 09:36 Dose: 25 mg Ondansetron HCl (Zofran Inj) 4 mg IVP Q4H PRN PRN Reason: Nausea/Vomiting Last Admin: 08/30/18 07:32 Dose: 4 mg Pantoprazole Sodium (Protonix Inj) 40 mg IVP DAILY [facility] Last Admin: 09/01/18 09:35 Dose: 40 mg Tamsulosin HCl (Flomax) 0.4 mg PO DAILY [facility] Last Admin: 09/01/18 09:36 Dose: 0.4 mg Vitamin B Complex/Vit C/Folic Acid (Nephro-Poly) 1 tab PO 0800 [facility] Last Admin: 09/01/18 08:37 Dose: 1 tab - Labs Labs: 08/31/18 11:36 08/31/18 11:36 PT 12.8 SECONDS (9.7-12.2) H 08/31/18 13:25 INR 1.2 08/31/18 13:25 APTT 29 SECONDS (21-34) 08/31/18 13:25
--- NOTE | 2018-09-01 15:40 | MRI ---
Date of service: 09/01/2018 PROCEDURE: MRI BRAIN WITHOUT CONTRAST HISTORY: ESRD on HD,new right-sided weakness COMPARISON: Comparison made with prior CT scan brain 08/30/2018. TECHNIQUE: Multiplanar, multisequence MR images of the brain were obtained without intravenous contrast enhancement. FINDINGS: HEMORRHAGE: No acute parenchymal, subarachnoid nor extra-axial hemorrhage. No evidence of hemosiderin deposition seen on gradient echo weighted sequence. DWI: No evidence of an acute or early subacute infarction seen on diffusion imaging.. BRAIN PARENCHYMA: Mild chronic periventricular white matter ischemic changes with more discrete chronic appearing lacunar type infarcts scattered about the deep and subcortical white matter both cerebral hemispheres as well as both anterior inferior cerebellar hemispheres.. Moderate to significant central volume loss evidenced by disproportionate enlargement of the ventricles compared sulci. VENTRICLES: No obstructive hydrocephalus however the ventricles remain moderately dilated felt to be secondary to central volume loss CRANIUM: Unremarkable. ORBITS: Changes of bilateral cataract surgery again noted PARANASAL SINUSES/MASTOIDS: Minor mucosal thickening seen within several ethmoid air cells. VASCULAR SYSTEM: Visualized major vascular flow voids at skull base patent OTHER FINDINGS: None. IMPRESSION: No acute intracranial hemorrhage. Chronic white matter and cerebellar ischemic changes. Moderate to significant volume loss which appears more central evidenced by disproportionate enlargement of the ventricles as compared the sulci
[2018-09-01] MEDS: (Lantus) Insulin Glargine, Recombinant SC SCH ×2 (20:03→21:58)
--- NOTE | 2018-09-01 21:24 | CARD ---
APPROVED REPORT Date of service: 09/01/2018 EXAM: Two-dimensional and M-mode echocardiogram with Doppler and color Doppler. Other Information Quality : Technically LimitedLimitedRhythm : INDICATION TDS Mitral Valve E/A ratio0.0 TDI E/Lateral E'0.0E/Medial E'0.0 <Conclusion> Sub-optimal stud, aborted due to uncooperative patient Limited views, no doppler. Overall LV systolic function is likkely normal, and there is a suggestion of septal hypokinesis. Cannot assess aortic valve, RV or valvular regurgitation.
[2018-09-01] MEDS: Cefepime IV 1 gm in Dextrose 1 GM/50 ML BAG IVPB SCH (21:57)
--- NOTE | 2018-09-01 23:26 | CP.PCM.PN ---
Subjective - Date & Time of Evaluation Date of Evaluation: 09/01/18 Time of Evaluation: 17:30 - Subjective Subjective: Patient alert, oriented today with no more right sided weakness. Afebrile. MRI of the head. Old lacunar infarcts. Appetite good. Glucose elevated. Will restart Lantus. Objective - Vital Signs/Intake and Output Vital Signs (last 24 hours): Temp Pulse Resp BP Pulse Ox 98.1 F 82 20 105/56 L 95 09/01/18 16:00 09/01/18 16:30 09/01/18 16:00 09/01/18 16:00 09/01/18 16:00 Intake and Output: 09/01/18 09/02/18 18:59 06:59 Intake Total 500 Balance 500 - Medications Medications: Current Medications Acetaminophen (Tylenol 325mg Tab) 650 mg PO Q6 PRN PRN Reason: Fever >100.4 F Acetaminophen (Tylenol 325mg Tab) 650 mg PO Q6 PRN PRN Reason: Pain, moderate (4-7) Aspirin (Ecotrin) 81 mg PO DAILY [facility] Last Admin: 09/01/18 09:36 Dose: 81 mg Belladonna/Phenobarbital () 1 tab PO TID [facility] Last Admin: 09/01/18 17:26 Dose: 1 tab Bisacodyl (Dulcolax) 5 mg PO DAILY [facility] Last Admin: 09/01/18 09:36 Dose: 5 mg [facility]cium [facility] ([facility]) [facility] Last Admin: 09/01/18 17:26 Dose: 1,334 mg Carvedilol (Coreg) 6.25 mg PO DAILY [facility] Last Admin: 09/01/18 09:36 Dose: 6.25 mg Docusate Sodium (Colace) 100 mg PO BID [facility] Last Admin: 09/01/18 17:26 Dose: 100 mg Glimepiride (Amaryl) 4 mg PO DAILY [facility] Last Admin: 09/01/18 09:36 Dose: 4 mg Heparin Sodium (Porcine) (Heparin) 5,000 units SC Q8 [facility] Last Admin: 09/01/18 21:57 Dose: 5,000 units Vancomycin HCl 500 mg/ Sodium (Chloride) 100 mls @ 100 mls/hr IVPB MWF [facility]; Protocol Last Admin: 08/31/18 09:59 Dose: 100 mls/hr Cefepime HCl (Maxipime Iv 1 Gm Premix) 1 gm in 50 mls @ 100 mls/hr IVPB DAILY@2200 [facility]; Protocol Last Admin: 09/01/18 21:57 Dose: 100 mls/hr Metronidazole (Flagyl) 500 mg in 100 mls @ 100 mls/hr IVPB Q8H [facility]; Protocol Last Admin: 09/01/18 20:07 Dose: 100 mls/hr Meropenem 500 mg/ Sodium (Chloride) 100 mls @ 100 mls/hr IVPB Q12H [facility]; Protocol Last Admin: 09/01/18 18:51 Dose: 100 mls/hr Insulin Aspart (Novolog) 0 unit SC ACHS [facility]; Protocol Last Admin: 09/01/18 21:58 Dose: Not Given Insulin Glargine (Lantus) 40 unit SC HS [facility] Last Admin: 09/01/18 21:58 Dose: 40 u Lamotrigine (Lamictal) 25 mg PO BID [facility] Last Admin: 09/01/18 17:26 Dose: 25 mg Ondansetron HCl (Zofran Inj) 4 mg IVP Q4H PRN PRN Reason: Nausea/Vomiting Last Admin: 08/30/18 07:32 Dose: 4 mg Pantoprazole Sodium (Protonix Ec Tab) 40 mg PO DAILY [facility] Tamsulosin HCl (Flomax) 0.4 mg PO DAILY [facility] Last Admin: 09/01/18 09:36 Dose: 0.4 mg Vitamin B Complex/Vit C/Folic Acid (Nephro-Poly) 1 tab PO 0800 [facility] Last Admin: 09/01/18 08:37 Dose: 1 tab - Labs Labs: 08/31/18 11:36 08/31/18 11:36 PT 12.8 SECONDS (9.7-12.2) H 08/31/18 13:25 INR 1.2 08/31/18 13:25 APTT 29 SECONDS (21-34) 08/31/18 13:25 - Constitutional Appears: No Acute Distress, Chronically Ill - Head Exam Head Exam: NORMAL INSPECTION - Eye Exam Eye Exam: Normal appearance - ENT Exam ENT Exam: Normal Exam - Neck Exam Neck Exam: Normal Inspection - Respiratory Exam Respiratory Exam: Rhonchi Additional comments: Rhonchi left base. - Cardiovascular Exam Cardiovascular Exam: REGULAR RHYTHM - GI/Abdominal Exam GI & Abdominal Exam: Soft, Normal Bowel Sounds - Extremities Exam Extremities Exam: Normal Inspection - Back Exam Back Exam: NORMAL INSPECTION - Neurological Exam Neurological Exam: Alert, Awake, Oriented x3 - Psychiatric Exam Psychiatric exam: Anxious - Skin Skin Exam: Dry, Intact, Normal Color, Warm Assessment and Plan (1) Ischemic ulcer of heel with necrosis of muscle Status: Resolved (2) Gangrene of toe of right foot Status: Resolved (3) Right middle lobe pneumonia Status: Resolved (4) Uncontrolled diabetes mellitus Status: Chronic (5) ESRD on hemodialysis Status: Chronic (6) Left lower lobe pneumonia Status: Acute (7) Right sided weakness Status: Resolved
[2018-09-02] MEDS: metroNIDAZOLE IV 500 mg/100 ml 500 MG/100 ML BAG IVPB SCH ×2 (04:16→13:15)
[2018-09-02] MEDS: Meropenem 500 MG in Sodium Chloride 0.9% 100 ML IVPB SCH ×2 (06:35→18:25)
[2018-09-02] MEDS: Multivitamin Vitamin B Complex (Nephro-Vite) Tab PO SCH (08:35)
[2018-09-02] MEDS: (Novolog) Insulin Aspart, Recombinant 100 u/ml 10 ml vial SC SCH ×4 (08:35→22:34)
--- NOTE | 2018-09-02 10:01 | PN ---
DATE: 09/02/2018 TIME OF EVALUATION: 06:47 a.m. NEUROLOGICAL PROBLEM: Possible seizures. PHYSICAL EXAMINATION: GENERAL: The patient is more awake, alert, communicable, good in [place] as well as German. He follows all commands. No long tract sign at present. VITAL SIGNS: Blood pressure 110/53, mean arterial pressure of 72, respiratory rate 18, pulse rate 83 and regular, and temperature 97.7. LABORATORY DATA: His recommended workup, MRI of the brain reviewed, periventricular ischemic changes consistent with small vessel disease with atrophy. Recommended electroencephalogram is still pending. Since the patient is fluctuant in neuro status, probably the possible complex seizures. Since he has been on Lamictal 25 mg twice a day, which has been therapeutically very low and I would like to increase the medication to 50 mg twice a day and followup EEG to be done. The patient will be followed closely with you. Nathanael Barraza MD
[2018-09-02 10:04] LABS: BASO % 0.8 % (0.0-2.0); EOS % 0.3 % (0.0-4.0); HEMOGLOBIN 10.8 g/dL (12.0-18.0); LYMPH # 0.8 K/uL (1.0-4.3); LYMPH % 12.2 % (20.0-40.0); MEAN CELL VOLUME 88.7 fL (80.0-94.0); MEAN CORPUSCULAR HEMOGLOBIN 29.2 pg (27.0-31.0); MEAN CORPUSCULAR HGB CONC 32.9 g/dL (33.0-37.0); MEAN PLATELET VOLUME 9.5 fL (7.2-11.7); MONO # 0.6 K/uL (0.0-0.8); MONO % 8.5 % (0.0-10.0); NEUT # 5.1 K/uL (1.8-7.0); NEUT % 78.2 % (50.0-75.0); RBC 3.71 Mil/uL (4.40-5.90); WHITE BLOOD COUNT 6.5 K/uL (4.8-10.8)
[2018-09-02] MEDS: Bisacodyl 5mg EC Tab PO SCH ×2 (10:12→13:46)
[2018-09-02] MEDS: Belladonna-Phenobarbital PO SCH ×3 (10:12→17:44)
[2018-09-02] MEDS: Pantoprazole 40 mg EC Tab PO SCH ×2 (10:13→13:46)
[2018-09-02 10:26] LABS: ALBUMIN 3.6 g/dL (3.5-5.0); CALCIUM 8.8 mg/dl (8.6-10.4)
--- NOTE | 2018-09-02 11:25 | CP.PCM.PN ---
Subjective - Date & Time of Evaluation Date of Evaluation: 09/02/18 Time of Evaluation: 11:25 - Subjective Subjective: Nephrology Consultation Note: Assessment: Stable Rt foot cellulitis and Pneumonia Diabetic chronic Kidney Disease (E11.22) Hypertensive Chronic Kidney Disease (I12.0) End stage renal disease (N18.6) dependence on hemodialysis (Z99.2) (MWF) via AVF Anemia (D64.9), Hyperphosphatemia (E83.39), Secondary Hyperparathyroidism (E21.1), HTN (I12.0) hypotension. AMS Plan: Will plan for HD MWF schedule as ordered. Continue with Nephrovite 1 tab/day. PRBC as needed for anemia. not on LESLI with dialysis as last Hb 10.8 Continue with phos binders, last phos level: 6.2 BP control with meds as ordered. d/c losartan as BP on low side Glycemic control, Dialysis consistent diet Further work up/management as per primary team Dose meds/antibiotics (if needed) for ESRD status. Please avoid fleets/phos enema/magnesium based laxatives in ESRD patients. ID Neuro following Thanks for allowing me to participate in care of your patient. Will follow patient with you. Please call if any Qs Dr Edwardo Valenzuela Office: [phone] Chief Complaint;Rt toe infection and cough HPI: Pt is a 78 year old male with PMHx of DM, HTN, Hyperlipidemia, ESRD on dialysis (MWF), CAD s/p CABG, AVR, BPH and Bipolar disorder presents to ED complaining of cough x 2 weeks and redness, swelling of the right big toe and admitted for cellulitis, pneumonia. Renal consult requested for ESRD management. last HD friday. otherwise feels usual health ROS: CAN DRYER on 08/30/18 for low BP and AMS. underwent HD Cardiovascular: No chest pain. Pulmonary: No shortness of breath . Gastrointestinal: denies abdominal pain No nausea. No vomiting. Genitourinary: No pain while urinating. Denies blood in urine. All other negative except as mentioned in HPI Physical Examination: seen during HD General Appearance: Comfortable, in no acute respiratory distress, co-operative . Vitals reviewed and noted as below Head; Atraumatic, normocephalic ENT: no ulcers no thrush. Tongue is midline. Oropharynx: no rash or ulcers. EYES: Pupils are equal, round and reactive to light accommodation. Eye muscles and extraocular movement intact. Sclera is anicteric. Neck; supple no lymphadenopathy, no thyromegaly or bruit Lungs: Normal respiratory rate/effort. Breath sounds bilateral equal and clear Heart: Normal rate. s1s2 normal. No rub or gallop. Extremities: no edema. No varicose veins. Neurological: Patient is alert, awake and not confused now. oriented. No focal deficit. Strength bilateral appropriate and equal Skin: Warm and dry. Normal turgor. No rash. Palpitation: Normal elasticity for age Abdomen: Abdomen is soft. Bowel sounds +. There is no abdominal tenderness, no guarding/rigidity or organomegaly Psych: normal insight and normal affect/mood MSK: no joint tenderness or swelling. Digits and nails normal, no deformity : kidney or bladder not palpable Access: AVF Labs/imaging reviewed. Past medical history, past surgical history, family history, social history, allergy reviewed and noted as below Family Hx: no hx of CKD. Non contributory Objective - Vital Signs/Intake and Output Vital Signs (last 24 hours): Temp Pulse Resp BP Pulse Ox 98.7 F 88 16 121/54 L 95 09/02/18 09:10 09/02/18 09:10 09/02/18 09:10 09/02/18 10:40 09/02/18 09:10 Intake and Output: 09/02/18 09/02/18 06:59 18:59 Intake Total 500 Balance 500 - Medications Medications: Current Medications Acetaminophen (Tylenol 325mg Tab) 650 mg PO Q6 PRN PRN Reason: Fever >100.4 F Acetaminophen (Tylenol 325mg Tab) 650 mg PO Q6 PRN PRN Reason: Pain, moderate (4-7) Aspirin (Ecotrin) 81 mg PO DAILY [facility] Last Admin: 09/02/18 10:13 Dose: Not Given Belladonna/Phenobarbital () 1 tab PO TID [facility] Last Admin: 09/02/18 10:12 Dose: Not Given Bisacodyl (Dulcolax) 5 mg PO DAILY [facility] Last Admin: 09/02/18 10:12 Dose: Not Given Calcium Acetate (Phoslo) 1,334 mg PO BIDCC [facility] Last Admin: 09/02/18 08:35 Dose: 1,334 mg Carvedilol (Coreg) 6.25 mg PO DAILY [facility] Last Admin: 09/02/18 10:12 Dose: Not Given Docusate Sodium (Colace) 100 mg PO BID [facility] Last Admin: 09/02/18 10:12 Dose: Not Given Glimepiride (Amaryl) 4 mg PO DAILY [facility] Last Admin: 09/02/18 10:11 Dose: Not Given Heparin Sodium (Porcine) (Heparin) 5,000 units SC Q8 [facility] Last Admin: 09/02/18 06:37 Dose: 5,000 units Vancomycin HCl 500 mg/ Sodium (Chloride) 100 mls @ 100 mls/hr IVPB MWF [facility]; Protocol Last Admin: 08/31/18 09:59 Dose: 100 mls/hr Cefepime HCl (Maxipime Iv 1 Gm Premix) 1 gm in 50 mls @ 100 mls/hr IVPB DAILY@2200 [facility]; Protocol Last Admin: 09/01/18 21:57 Dose: 100 mls/hr Metronidazole (Flagyl) 500 mg in 100 mls @ 100 mls/hr IVPB Q8H [facility]; Protocol Last Admin: 09/02/18 04:16 Dose: 100 mls/hr Meropenem 500 mg/ Sodium (Chloride) 100 mls @ 100 mls/hr IVPB Q12H [facility]; Protocol Last Admin: 09/02/18 06:35 Dose: 100 mls/hr Insulin Aspart (Novolog) 0 unit SC ACHS [facility]; Protocol Last Admin: 09/02/18 08:35 Dose: 3 units Insulin Glargine (Lantus) 40 unit SC HS [facility] Last Admin: 09/01/18 21:58 Dose: 40 u Lamotrigine (Lamictal) 50 mg PO BID [facility] Last Admin: 09/02/18 10:13 Dose: Not Given Ondansetron HCl (Zofran Inj) 4 mg IVP Q4H PRN PRN Reason: Nausea/Vomiting Last Admin: 08/30/18 07:32 Dose: 4 mg Pantoprazole Sodium (Protonix Ec Tab) 40 mg PO DAILY [facility] Last Admin: 09/02/18 10:13 Dose: Not Given Tamsulosin HCl (Flomax) 0.4 mg PO DAILY [facility] Last Admin: 09/02/18 10:13 Dose: Not Given Vitamin B Complex/Vit C/Folic Acid (Nephro-Poly) 1 tab PO 0800 [facility] Last Admin: 09/02/18 08:35 Dose: 1 tab - Labs Labs: 09/02/18 09:58 09/02/18 09:58 PT 12.8 SECONDS (9.7-12.2) H 08/31/18 13:25 INR 1.2 08/31/18 13:25 APTT 29 SECONDS (21-34) 08/31/18 13:25
--- NOTE | 2018-09-02 16:05 | CP.PCM.PN ---
Subjective - Date & Time of Evaluation Date of Evaluation: 09/02/18 Time of Evaluation: 16:03 - Subjective Subjective: GI Progress Note for Dr. Addison Patient seen and examined at bedside. Patient disoriented and speaking in 1-3 word sentences only. Patient thinks he is at home and does not know the year or month. When asked how he is doing, he would say "I am fine." Per RN patient does not eat unless he gets fed by them. Due to patient condition ROS unable to be assessed. Objective - Vital Signs/Intake and Output Vital Signs (last 24 hours): Temp Pulse Resp BP Pulse Ox 98.7 F 71 19 97/54 L 98 09/02/18 12:40 09/02/18 12:40 09/02/18 12:40 09/02/18 12:40 09/02/18 12:40 Intake and Output: 09/02/18 09/02/18 06:59 18:59 Intake Total 500 Balance 500 - Medications Medications: Current Medications Acetaminophen (Tylenol 325mg Tab) 650 mg PO Q6 PRN PRN Reason: Fever >100.4 F Acetaminophen (Tylenol 325mg Tab) 650 mg PO Q6 PRN PRN Reason: Pain, moderate (4-7) Aspirin (Ecotrin) 81 mg PO DAILY [facility] Last Admin: 09/02/18 13:46 Dose: 81 mg Belladonna/Phenobarbital () 1 tab PO TID [facility] Last Admin: 09/02/18 13:47 Dose: 1 tab Bisacodyl (Dulcolax) 5 mg PO DAILY [facility] Last Admin: 09/02/18 13:46 Dose: 5 mg Calcium Acetate (Phoslo) 1,334 mg PO BIDCC [facility] Last Admin: 09/02/18 08:35 Dose: 1,334 mg Carvedilol (Coreg) 6.25 mg PO DAILY [facility] Last Admin: 09/02/18 10:12 Dose: Not Given Docusate Sodium (Colace) 100 mg PO BID [facility] Last Admin: 09/02/18 10:12 Dose: Not Given Glimepiride (Amaryl) 4 mg PO DAILY [facility] Last Admin: 09/02/18 13:47 Dose: 4 mg Heparin Sodium (Porcine) (Heparin) 5,000 units SC Q8 [facility] Last Admin: 09/02/18 13:45 Dose: 5,000 units Vancomycin HCl 500 mg/ Sodium (Chloride) 100 mls @ 100 mls/hr IVPB MWF [facility]; Protocol Last Admin: 09/02/18 13:45 Dose: 100 mls/hr Cefepime HCl (Maxipime Iv 1 Gm Premix) 1 gm in 50 mls @ 100 mls/hr IVPB DAILY@2200 [facility]; Protocol Last Admin: 09/01/18 21:57 Dose: 100 mls/hr Meropenem 500 mg/ Sodium (Chloride) 100 mls @ 100 mls/hr IVPB Q12H [facility]; Protocol Last Admin: 09/02/18 06:35 Dose: 100 mls/hr Insulin Aspart (Novolog) 0 unit SC ACHS [facility]; Protocol Last Admin: 09/02/18 13:00 Dose: Not Given Insulin Glargine (Lantus) 40 unit SC HS [facility] Last Admin: 09/01/18 21:58 Dose: 40 u Lamotrigine (Lamictal) 50 mg PO BID [facility] Last Admin: 09/02/18 10:13 Dose: Not Given Ondansetron HCl (Zofran Inj) 4 mg IVP Q4H PRN PRN Reason: Nausea/Vomiting Last Admin: 08/30/18 07:32 Dose: 4 mg Pantoprazole Sodium (Protonix Ec Tab) 40 mg PO DAILY [facility] Last Admin: 09/02/18 13:46 Dose: 40 mg Tamsulosin HCl (Flomax) 0.4 mg PO DAILY [facility] Last Admin: 09/02/18 10:13 Dose: Not Given Vitamin B Complex/Vit C/Folic Acid (Nephro-Poly) 1 tab PO 0800 [facility] Last Admin: 09/02/18 08:35 Dose: 1 tab - Labs Labs: 09/02/18 09:58 09/02/18 09:58 PT 12.8 SECONDS (9.7-12.2) H 08/31/18 13:25 INR 1.2 08/31/18 13:25 APTT 29 SECONDS (21-34) 08/31/18 13:25 - Constitutional Appears: Well, Non-toxic - Head Exam Head Exam: ATRAUMATIC, NORMAL INSPECTION - Eye Exam Eye Exam: EOMI, Normal appearance - Neck Exam Neck Exam: Normal Inspection - Respiratory Exam Respiratory Exam: Clear to Ausculation Bilateral, NORMAL BREATHING PATTERN - Cardiovascular Exam Cardiovascular Exam: REGULAR RHYTHM - GI/Abdominal Exam GI & Abdominal Exam: Soft, Normal Bowel Sounds. absent: Tenderness - Extremities Exam Extremities Exam: Normal Inspection. absent: Calf Tenderness - Neurological Exam Neurological Exam: Alert, Awake. absent: Oriented x3 Additional comments: AAOx1 - patient only oriented to self - Psychiatric Exam Psychiatric exam: Normal Affect, Normal Mood - Skin Skin Exam: Dry, Intact, Normal Color, Warm Assessment and Plan - Assessment and Plan (Free Text) Assessment: 78 y/o male with PMHx of DM, ESRD on HD, HTN, CAD s/p CABG and AVR 2012 altered mental status, poor appetite -swallow study ordered just now, will f/u w/ results and diet recommendations -upper endoscopy no later than Monday 09/[address] Addison -will continue to follow case discussed with Dr. Azael Rosen PGY1
--- NOTE | 2018-09-02 21:08 | CP.PCM.PN ---
Subjective - Date & Time of Evaluation Date of Evaluation: 09/02/18 Time of Evaluation: 21:05 - Subjective Subjective: Patient more alert, more oriented with no more right sided weakness. Still with a productive cough, but afebrile. Objective - Vital Signs/Intake and Output Vital Signs (last 24 hours): Temp Pulse Resp BP Pulse Ox 99.4 F 92 H 20 112/66 95 09/02/18 16:37 09/02/18 16:37 09/02/18 16:37 09/02/18 16:37 09/02/18 16:37 - Medications Medications: Current Medications Acetaminophen (Tylenol 325mg Tab) 650 mg PO Q6 PRN PRN Reason: Fever >100.4 F Acetaminophen (Tylenol 325mg Tab) 650 mg PO Q6 PRN PRN Reason: Pain, moderate (4-7) Aspirin (Ecotrin) 81 mg PO DAILY [facility] Last Admin: 09/02/18 13:46 Dose: 81 mg Belladonna/Phenobarbital () 1 tab PO TID [facility] Last Admin: 09/02/18 17:44 Dose: 1 tab Bisacodyl (Dulcolax) 5 mg PO DAILY [facility] Last Admin: 09/02/18 13:46 Dose: 5 mg Calcium Acetate (Phoslo) 1,334 mg PO BIDCC [facility] Last Admin: 09/02/18 17:45 Dose: 1,334 mg Carvedilol (Coreg) 6.25 mg PO DAILY [facility] Last Admin: 09/02/18 10:12 Dose: Not Given Docusate Sodium (Colace) 100 mg PO BID [facility] Last Admin: 09/02/18 17:44 Dose: 100 mg Glimepiride (Amaryl) 4 mg PO DAILY [facility] Last Admin: 09/02/18 13:47 Dose: 4 mg Heparin Sodium (Porcine) (Heparin) 5,000 units SC Q8 [facility] Last Admin: 09/02/18 13:45 Dose: 5,000 units Vancomycin HCl 500 mg/ Sodium (Chloride) 100 mls @ 100 mls/hr IVPB MWF [facility]; Protocol Last Admin: 09/02/18 13:45 Dose: 100 mls/hr Cefepime HCl (Maxipime Iv 1 Gm Premix) 1 gm in 50 mls @ 100 mls/hr IVPB DAILY@2200 [facility]; Protocol Last Admin: 09/01/18 21:57 Dose: 100 mls/hr Meropenem 500 mg/ Sodium (Chloride) 100 mls @ 100 mls/hr IVPB Q12H [facility]; Protocol Last Admin: 09/02/18 18:25 Dose: 100 mls/hr Insulin Aspart (Novolog) 0 unit SC ACHS [facility]; Protocol Last Admin: 09/02/18 17:43 Dose: 4 units Insulin Glargine (Lantus) 40 unit SC HS [facility] Last Admin: 09/01/18 21:58 Dose: 40 u Lamotrigine (Lamictal) 50 mg PO BID [facility] Last Admin: 09/02/18 19:00 Dose: 50 mg Ondansetron HCl (Zofran Inj) 4 mg IVP Q4H PRN PRN Reason: Nausea/Vomiting Last Admin: 08/30/18 07:32 Dose: 4 mg Pantoprazole Sodium (Protonix Ec Tab) 40 mg PO DAILY [facility] Last Admin: 09/02/18 13:46 Dose: 40 mg Tamsulosin HCl (Flomax) 0.4 mg PO DAILY [facility] Last Admin: 09/02/18 10:13 Dose: Not Given Vitamin B Complex/Vit C/Folic Acid (Nephro-Poly) 1 tab PO 0800 [facility] Last Admin: 09/02/18 08:35 Dose: 1 tab - Labs Labs: 09/02/18 09:58 09/02/18 09:58 PT 12.8 SECONDS (9.7-12.2) H 08/31/18 13:25 INR 1.2 08/31/18 13:25 APTT 29 SECONDS (21-34) 08/31/18 13:25 - Constitutional Appears: No Acute Distress, Chronically Ill - Eye Exam Eye Exam: Normal appearance - ENT Exam ENT Exam: Normal Exam - Respiratory Exam Respiratory Exam: Rhonchi Additional comments: Rhonchi left base. - Cardiovascular Exam Cardiovascular Exam: REGULAR RHYTHM - GI/Abdominal Exam GI & Abdominal Exam: Soft, Normal Bowel Sounds - Rectal Exam Rectal Exam: Deferred - Exam Exam: NORMAL INSPECTION - Back Exam Back Exam: NORMAL INSPECTION - Neurological Exam Neurological Exam: Alert, Awake - Psychiatric Exam Psychiatric exam: Anxious - Skin Skin Exam: Dry, Intact, Warm Assessment and Plan (1) Ischemic ulcer of heel with necrosis of muscle Status: Resolved (2) Gangrene of toe of right foot Status: Resolved (3) Right middle lobe pneumonia Status: Resolved (4) Uncontrolled diabetes mellitus Status: Chronic (5) ESRD on hemodialysis Status: Chronic (6) Left lower lobe pneumonia Assessment & Plan: On IV Maxipime. Status: Acute (7) Right sided weakness Status: Resolved
[2018-09-02] MEDS: Cefepime IV 1 gm in Dextrose 1 GM/50 ML BAG IVPB SCH (22:33)
[2018-09-02] MEDS: (Lantus) Insulin Glargine, Recombinant SC SCH (22:33)
--- NOTE | 2018-09-02 22:43 | CARD ---
APPROVED REPORT Date of service: 08/30/2018 EKG Measurement Heart [id number] <Conclusion> Sinus tachycardia Incomplete left bundle branch block ST & T wave abnormality, consider inferior ischemia Abnormal ECG
[2018-09-03] MEDS: Meropenem 500 MG in Sodium Chloride 0.9% 100 ML IVPB SCH ×2 (06:11→20:00)
[2018-09-03] MEDS: Bisacodyl 5mg EC Tab PO SCH (09:42)
[2018-09-03] MEDS: (Novolog) Insulin Aspart, Recombinant 100 u/ml 10 ml vial SC SCH ×4 (09:42→21:35)
[2018-09-03] MEDS: Multivitamin Vitamin B Complex (Nephro-Vite) Tab PO SCH (09:42)
[2018-09-03] MEDS: Belladonna-Phenobarbital PO SCH ×3 (09:42→17:37)
[2018-09-03] MEDS: Pantoprazole 40 mg EC Tab PO SCH (09:42)
--- NOTE | 2018-09-03 13:19 | VASCLAB ---
Date of service: 09/01/2018 PROCEDURE: Carotid Duplex Exam. HISTORY: assess stenosis COMPARISON: None available. TECHNIQUE: Grayscale and duplex Doppler evaluation of the cervical carotid and vertebral arteries were performed. The common carotid, carotid bifurcations and cervical Internal Carotid Artery (ICA) and proximal External Carotid Artery (ECA) were evaluated. The vertebral arteries were evaluated for gross patency and flow direction. Report prepared by Ramu Mahajan, BS, RVT FINDINGS: RIGHT CAROTID ARTERIES: 1. Common Carotid Artery: No significant focal plaque formation of the right common carotid artery. Maximum Peak Systolic velocity: 72 cm/sec: End-diastolic velocity 0 cm/sec. 2. Carotid Bifurcation: Calcific plaque formation. Maximum Peak Systolic velocity: 47 cm/sec: End-diastolic velocity 8 cm/sec. 3. Internal Carotid Artery: Plaque description: 3.1. Proximal Segment: Peak systolic velocity 93 cm/sec: End-diastolic velocity 14 cm/sec - % stenosis 0-15% 3.2. Middle Segment: Peak systolic velocity 93 cm/sec: End-diastolic velocity 14 cm/sec - % stenosis 0-15% 3.3. Distal Segment: Peak systolic velocity 93 cm/sec: End-diastolic velocity 16 cm/sec - % stenosis 0-15% 4. External Carotid Artery: No significant focal plaque formation. Peak systolic velocity 86 cm/sec 5. ICA/CCA Ratio: 1.3 LEFT CAROTID ARTERIES: 1. Common Carotid Artery: No significant focal plaque formation of the left common carotid artery. Maximum Peak Systolic velocity: 68 cm/sec: End-diastolic velocity 0 cm/sec. 2. Carotid Bifurcation: plaque formation. Maximum Peak Systolic velocity: 70 cm/sec: End-diastolic velocity 0 cm/sec. 3. Internal Carotid Artery: Plaque description: 3.1. Proximal Segment: Peak systolic velocity 73 cm/sec: End-diastolic velocity 10 cm/sec - % stenosis 0-15% 3.2. Middle Segment: Peak systolic velocity 95 cm/sec: End-diastolic velocity 14 cm/sec - % stenosis 0-15% 3.3. Distal Segment: Peak systolic velocity 82 cm/sec: End-diastolic velocity 11 cm/sec - % stenosis 0-15% 4. External Carotid Artery: No significant focal plaque formation. Peak systolic velocity 104 cm/sec 5. ICA/CCA Ratio: 1.4 VERTEBRAL ARTERIES: 1. Right Vertebral Artery: The right vertebral artery flow direction is antegrade. 2. Left Vertebral Artery: The left vertebral artery flow direction is antegrade. OTHER FINDINGS: 1. Right Brachial Blood pressure: mmHg. 2. Left Brachial Blood pressure: mmHg. 3. No atherosclerotic calcification present IMPRESSION: RIGHT: Duplex scan does not suggest hemodynamically significant stenosis of the right extracranial carotid arteries. LEFT: Duplex scan does not suggest hemodynamically significant stenosis of the left extracranial carotid arteries.
--- NOTE | 2018-09-03 14:09 | CP.PCM.PN ---
Subjective - Date & Time of Evaluation Date of Evaluation: 09/03/18 Time of Evaluation: 14:09 - Subjective Subjective: Nephrology Consultation Note: Assessment: Stable Rt foot cellulitis and Pneumonia Diabetic chronic Kidney Disease (E11.22) Hypertensive Chronic Kidney Disease (I12.0) End stage renal disease (N18.6) dependence on hemodialysis (Z99.2) (MWF) via AVF Anemia (D64.9), Hyperphosphatemia (E83.39), Secondary Hyperparathyroidism (E21.1), HTN (I12.0) hypotension. AMS Plan: Will plan for HD MWF schedule as ordered. Continue with Nephrovite 1 tab/day. PRBC as needed for anemia. not on LESLI with dialysis as last Hb 10.8 Continue with phos binders, last phos level: 6.2 BP control with meds as ordered. d/c losartan as BP on low side Glycemic control, Dialysis consistent diet Further work up/management as per primary team Dose meds/antibiotics (if needed) for ESRD status. Please avoid fleets/phos enema/magnesium based laxatives in ESRD patients. ID Neuro following Thanks for allowing me to participate in care of your patient. Will follow patient with you. Please call if any Qs Dr Edwardo Valenzuela Office: [phone] Chief Complaint;Rt toe infection and cough HPI: Pt is a 78 year old male with PMHx of DM, HTN, Hyperlipidemia, ESRD on dialysis (MWF), CAD s/p CABG, AVR, BPH and Bipolar disorder presents to ED complaining of cough x 2 weeks and redness, swelling of the right big toe and admitted for cellulitis, pneumonia. Renal consult requested for ESRD management. last HD friday. otherwise feels usual health ROS: [employer] on 08/30/18 for low BP and AMS Cardiovascular: No chest pain. Pulmonary: No shortness of breath . Gastrointestinal: denies abdominal pain No nausea. No vomiting. Genitourinary: No pain while urinating. Denies blood in urine. All other negative except as mentioned in HPI Physical Examination: General Appearance: Comfortable, in no acute respiratory distress, co-operative . Vitals reviewed and noted as below Head; Atraumatic, normocephalic ENT: no ulcers no thrush. Tongue is midline. Oropharynx: no rash or ulcers. EYES: Pupils are equal, round and reactive to light accommodation. Eye muscles and extraocular movement intact. Sclera is anicteric. Neck; supple no lymphadenopathy, no thyromegaly or bruit Lungs: Normal respiratory rate/effort. Breath sounds bilateral equal and clear Heart: Normal rate. s1s2 normal. No rub or gallop. Extremities: no edema. No varicose veins. Neurological: Patient is alert, awake and not confused now. oriented. No focal d eficit. Strength bilateral appropriate and equal Skin: Warm and dry. Normal turgor. No rash. Palpitation: Normal elasticity for age Abdomen: Abdomen is soft. Bowel sounds +. There is no abdominal tenderness, no guarding/rigidity or organomegaly Psych: normal insight and normal affect/mood MSK: no joint tenderness or swelling. Digits and nails normal, no deformity : kidney or bladder not palpable Access: AVF Labs/imaging reviewed. Past medical history, past surgical history, family history, social history, allergy reviewed and noted as below Family Hx: no hx of CKD. Non contributory Objective - Vital Signs/Intake and Output Vital Signs (last 24 hours): Temp Pulse Resp BP Pulse Ox 97.8 F 80 20 123/81 97 09/03/18 07:00 09/03/18 07:54 09/03/18 07:00 09/03/18 07:00 09/03/18 07:00 Intake and Output: 09/03/18 09/03/18 06:59 18:59 Intake Total 630 340 Balance 630 340 - Medications Medications: Current Medications Acetaminophen (Tylenol 325mg Tab) 650 mg PO Q6 PRN PRN Reason: Fever >100.4 F Acetaminophen (Tylenol 325mg Tab) 650 mg PO Q6 PRN PRN Reason: Pain, moderate (4-7) Aspirin (Ecotrin) 81 mg PO DAILY [facility] Last Admin: 09/03/18 09:42 Dose: 81 mg Belladonna/Phenobarbital () 1 tab PO TID [facility] Last Admin: 09/03/18 13:13 Dose: 1 tab Bisacodyl (Dulcolax) 5 mg PO DAILY [facility] Last Admin: 09/03/18 09:42 Dose: 5 mg Calcium Acetate (Phoslo) 1,334 mg PO BIDCC [facility] Last Admin: 09/03/18 09:42 Dose: 1,334 mg Carvedilol (Coreg) 6.25 mg PO DAILY [facility] Last Admin: 09/03/18 09:42 Dose: 6.25 mg Docusate Sodium (Colace) 100 mg PO BID [facility] Last Admin: 09/03/18 09:42 Dose: 100 mg Glimepiride (Amaryl) 4 mg PO DAILY [facility] Last Admin: 09/03/18 09:42 Dose: 4 mg Heparin Sodium (Porcine) (Heparin) 5,000 units SC Q8 [facility] Last Admin: 09/03/18 13:12 Dose: 5,000 units Vancomycin HCl 500 mg/ Sodium (Chloride) 100 mls @ 100 mls/hr IVPB MWF [facility]; Protocol Last Admin: 09/02/18 13:45 Dose: 100 mls/hr Cefepime HCl (Maxipime Iv 1 Gm Premix) 1 gm in 50 mls @ 100 mls/hr IVPB DAILY@2200 [facility]; Protocol Last Admin: 09/02/18 22:33 Dose: 100 mls/hr Meropenem 500 mg/ Sodium (Chloride) 100 mls @ 100 mls/hr IVPB Q12H [facility]; Protocol Last Admin: 09/03/18 06:11 Dose: 100 mls/hr Insulin Aspart (Novolog) 0 unit SC ACHS [facility]; Protocol Last Admin: 09/03/18 13:14 Dose: 4 units Insulin Glargine (Lantus) 40 unit SC HS [facility] Last Admin: 09/02/18 22:33 Dose: 40 u Lamotrigine (Lamictal) 50 mg PO BID [facility] Last Admin: 09/03/18 09:42 Dose: 50 mg Ondansetron HCl (Zofran Inj) 4 mg IVP Q4H PRN PRN Reason: Nausea/Vomiting Last Admin: 08/30/18 07:32 Dose: 4 mg Pantoprazole Sodium (Protonix Ec Tab) 40 mg PO DAILY [facility] Last Admin: 09/03/18 09:42 Dose: 40 mg Tamsulosin HCl (Flomax) 0.4 mg PO DAILY [facility] Last Admin: 09/03/18 09:42 Dose: 0.4 mg Vitamin B Complex/Vit C/Folic Acid (Nephro-Poly) 1 tab PO 0800 [facility] Last Admin: 09/03/18 09:42 Dose: 1 tab - Labs Labs: 09/02/18 09:58 09/02/18 09:58 PT 12.8 SECONDS (9.7-12.2) H 08/31/18 13:25 INR 1.2 08/31/18 13:25 APTT 29 SECONDS (21-34) 08/31/18 13:25
--- NOTE | 2018-09-03 14:41 | PN ---
DATE: 09/03/2018 LOCATION: 554. SUBJECTIVE: This is a 78-year-old male seen and examined in rounds without significant clinical changes or reported active bleeding, appeared to be somewhat more oriented with no reported right-sided body weakness, but with intermittent period of productive cough on and off. No chest pain, palpitations, chills or fever to be reported. The entire chart is reviewed including, but not limited to most recent lab and radiology study results, current and the previous medication list, current and the previous medical events. Case discussed with the staff at length. Today's lab results show blood glucose level of 279. Rest of the labs still pending and the patient reported to have low hemoglobin and hematocrit recently with thrombocytopenia of 109. PHYSICAL EXAMINATION: GENERAL: A 78-year-old male. VITAL SIGNS: Afebrile with pulse of 76, respiratory 20-22, blood pressure 128/84. HEENT: Pale dry oral mucous membrane. Nonicteric sclerae. LUNGS: Few scattered crepitation. Decreased air entry at bases. HEART: Positive S1 and S2. ABDOMEN: Soft. Bowel sounds are present. No mass or organomegaly. No rebound tenderness or guarding. EXTREMITIES: Without significant clubbing, cyanosis or edema. NEUROLOGIC: No reported new neurological deficits, sensory or motor, but with reported left lower extremity's discoloration. IMPRESSION: 1. Anemia. 2. Thrombocytopenia of unclear etiology. 3. Re-exacerbation of peptic ulcer disease with period of nausea and vomiting before, subsiding. 4. Renal failure by history. 5. Ischemic ulceration of the left foot with gangrenous changes. 6. Recent history of pneumonia; poorly controlled diabetes mellitus; end-stage renal disease, on hemodialysis as well as abnormal computerized axial tomography scan of the abdomen and pelvis with possible fecal impaction. SUGGESTIONS: 1. Continue current management. 2. Dulcolax. 3. If the patient's symptoms persist, then endoscopic evaluation of the lower GI tract to be kept in mind, otherwise, close observation to follow. Cindy Corrales MD
--- NOTE | 2018-09-03 15:21 | CP.PCM.PN ---
Subjective - Date & Time of Evaluation Date of Evaluation: 09/03/18 Time of Evaluation: 15:18 - Subjective Subjective: Podiatry Progress Note for Dr. Jenkins 78 y/o male seen and evaluated at bedside for bilateral deep tissue injuries to his heels and a healed right hallux ulceration. Patient is AAO x 3 and NAD, resting comfortably in bed. Denies any pain or any acute overnight events. Denies any further pedal complaints at this time. Denies any recent N/V/F/C/CP/SOB/D Objective - Vital Signs/Intake and Output Vital Signs (last 24 hours): Temp Pulse Resp BP Pulse Ox 97.8 F 80 20 123/81 97 09/03/18 07:00 09/03/18 07:54 09/03/18 07:00 09/03/18 07:00 09/03/18 07:00 Intake and Output: 09/03/18 09/03/18 06:59 18:59 Intake Total 630 340 Balance 630 340 - Medications Medications: Current Medications Acetaminophen (Tylenol 325mg Tab) 650 mg PO Q6 PRN PRN Reason: Fever >100.4 F Acetaminophen (Tylenol 325mg Tab) 650 mg PO Q6 PRN PRN Reason: Pain, moderate (4-7) Aspirin (Ecotrin) 81 mg PO DAILY [facility] Last Admin: 09/03/18 09:42 Dose: 81 mg Belladonna/Phenobarbital () 1 tab PO TID [facility] Last Admin: 09/03/18 13:13 Dose: 1 tab Bisacodyl (Dulcolax) 5 mg PO DAILY [facility] Last Admin: 09/03/18 09:42 Dose: 5 mg [facility] ([facility]) [facility] Last Admin: 09/03/18 09:42 Dose: 1,334 mg Carvedilol (Coreg) 6.25 mg PO DAILY [facility] Last Admin: 09/03/18 09:42 Dose: 6.25 mg Docusate Sodium (Colace) 100 mg PO BID [facility] Last Admin: 09/03/18 09:42 Dose: 100 mg Glimepiride (Amaryl) 4 mg PO DAILY [facility] Last Admin: 09/03/18 09:42 Dose: 4 mg Heparin Sodium (Porcine) (Heparin) 5,000 units SC Q8 [facility] Last Admin: 09/03/18 13:12 Dose: 5,000 units Vancomycin HCl 500 mg/ Sodium (Chloride) 100 mls @ 100 mls/hr IVPB MWF [facility]; Protocol Last Admin: 09/02/18 13:45 Dose: 100 mls/hr Cefepime HCl (Maxipime Iv 1 Gm Premix) 1 gm in 50 mls @ 100 mls/hr IVPB SHAUNA Y@2200 [facility]; Protocol Last Admin: 09/02/18 22:33 Dose: 100 mls/hr Meropenem 500 mg/ Sodium (Chloride) 100 mls @ 100 mls/hr IVPB Q12H [facility]; Protocol Last Admin: 09/03/18 06:11 Dose: 100 mls/hr Insulin Aspart (Novolog) 0 unit SC ACHS [facility]; Protocol Last Admin: 09/03/18 13:14 Dose: 4 units Insulin Glargine (Lantus) 40 unit SC HS [facility] Last Admin: 09/02/18 22:33 Dose: 40 u Lamotrigine (Lamictal) 50 mg PO BID [facility] Last Admin: 09/03/18 09:42 Dose: 50 mg Ondansetron HCl (Zofran Inj) 4 mg IVP Q4H PRN PRN Reason: Nausea/Vomiting Last Admin: 08/30/18 07:32 Dose: 4 mg Pantoprazole Sodium (Protonix Ec Tab) 40 mg PO DAILY [facility] Last Admin: 09/03/18 09:42 Dose: 40 mg Tamsulosin HCl (Flomax) 0.4 mg PO DAILY [facility] Last Admin: 09/03/18 09:42 Dose: 0.4 mg Vitamin B Complex/Vit C/Folic Acid (Nephro-Poly) 1 tab PO 0800 [facility] Last Admin: 09/03/18 09:42 Dose: 1 tab - Labs Labs: 09/02/18 09:58 09/02/18 09:58 PT 12.8 SECONDS (9.7-12.2) H 08/31/18 13:25 INR 1.2 08/31/18 13:25 APTT 29 SECONDS (21-34) 08/31/18 13:25 - Constitutional Appears: Well, Non-toxic, No Acute Distress - Extremities Exam Additional comments: Lower extremity focused exam: Vasc: DP/PT pulses palpable 2/4 B/L. Temperature gradient warm to warm from proximal to distal WNL. CFT < 3 sec to all digits. No pedal edema noted. Derm: Dry, healed, well epithelialized ulceration to plantar distal tip of hallux with overlying hyperkeratotic tissue and hyperpigmentation of digit noted. No break in skin or soft tissue, malodor, streaking, erythema, active drainage, fluctuance or other clinical signs of infection noted. Deep tissue injuries noted to bilateral heels. No breaks in skin or soft tissue of heels noted B/L. Neuro: protective sensation grossly intact Ortho: no tenderness to palpation of right great toe or bilateral plantar heels at site of deep tissue injuries - Neurological Exam Neurological Exam: Alert, Awake, Oriented x3 - Psychiatric Exam Psychiatric exam: Normal Affect, Normal Mood Assessment and Plan - Assessment and Plan (Free Text) Assessment: 78 y/o male seen and evaluated at bedside for bilateral deep tissue injuries to his heels and a healed right hallux ulceration. Plan: Patient seen and evaluated Plan discussed with Dr. Jenkins Afebrile, absent leukocytosis Foot x-rays show no acute osseous findings, no evidence of osteomyelitis Arterial duplex studies- no significant arterial insufficiency to lower extremities Right distal hallux ulceration completely healed with epithelized layer Heel DTI stable to bilateral lower extremities - bandaged with Optifoam dressing Continue offloading with multipodus boots at all times in bed Wound culture + for MRSA, Corynebacterium Continue abx per ID recommendations Patient is stable from podiatric standpoint Upon discharge, patient to follow up with Dr. Jenkins in clinic within 1 week
--- NOTE | 2018-09-03 18:13 | CP.PCM.PN ---
Subjective - Date & Time of Evaluation Date of Evaluation: 09/03/18 Time of Evaluation: 18:10 - Subjective Subjective: Patient awake, in no distress with better appetite and less cough. Afebrile. Objective - Vital Signs/Intake and Output Vital Signs (last 24 hours): Temp Pulse Resp BP Pulse Ox 99.2 F 83 20 106/65 94 L 09/03/18 16:00 09/03/18 16:00 09/03/18 16:00 09/03/18 16:00 09/03/18 16:00 Intake and Output: 09/03/18 09/03/18 06:59 18:59 Intake Total 630 740 Balance 630 740 - Medications Medications: Current Medications Acetaminophen (Tylenol 325mg Tab) 650 mg PO Q6 PRN PRN Reason: Fever >100.4 F Acetaminophen (Tylenol 325mg Tab) 650 mg PO Q6 PRN PRN Reason: Pain, moderate (4-7) Aspirin (Ecotrin) 81 mg PO DAILY [facility] Last Admin: 09/03/18 09:42 Dose: 81 mg Belladonna/Phenobarbital () 1 tab PO TID [facility] Last Admin: 09/03/18 17:37 Dose: 1 tab Bisacodyl (Dulcolax) 5 mg PO DAILY [facility] Last Admin: 09/03/18 09:42 Dose: 5 mg [facility] ([facility]) [facility] Last Admin: 09/03/18 17:38 Dose: 1,334 mg Carvedilol (Coreg) 6.25 mg PO DAILY [facility] Last Admin: 09/03/18 09:42 Dose: 6.25 mg Docusate Sodium (Colace) 100 mg PO BID [facility] Last Admin: 09/03/18 17:38 Dose: 100 mg Glimepiride (Amaryl) 4 mg PO DAILY [facility] Last Admin: 09/03/18 09:42 Dose: 4 mg Heparin Sodium (Porcine) (Heparin) 5,000 units SC Q8 [facility] Last Admin: 09/03/18 13:12 Dose: 5,000 units Vancomycin HCl 500 mg/ Sodium (Chloride) 100 mls @ 100 mls/hr IVPB MWF [facility]; Protocol Last Admin: 09/02/18 13:45 Dose: 100 mls/hr Cefepime HCl (Maxipime Iv 1 Gm Premix) 1 gm in 50 mls @ 100 mls/hr IVPB DAILY@2200 [facility]; Protocol Last Admin: 09/02/18 22:33 Dose: 100 mls/hr Meropenem 500 mg/ Sodium (Chloride) 100 mls @ 100 mls/hr IVPB Q12H [facility]; Protocol Last Admin: 09/03/18 06:11 Dose: 100 mls/hr Insulin Aspart (Novolog) 0 unit SC ACHS [facility]; Protocol Last Admin: 09/03/18 17:40 Dose: Not Given Insulin Glargine (Lantus) 40 unit SC HS [facility] Last Admin: 09/02/18 22:33 Dose: 40 u Lamotrigine (Lamictal) 50 mg PO BID [facility] Last Admin: 09/03/18 17:38 Dose: 50 mg Ondansetron HCl (Zofran Inj) 4 mg IVP Q4H PRN PRN Reason: Nausea/Vomiting Last Admin: 08/30/18 07:32 Dose: 4 mg Pantoprazole Sodium (Protonix Ec Tab) 40 mg PO DAILY [facility] Last Admin: 09/03/18 09:42 Dose: 40 mg Tamsulosin HCl (Flomax) 0.4 mg PO DAILY [facility] Last Admin: 09/03/18 09:42 Dose: 0.4 mg Vitamin B Complex/Vit C/Folic Acid (Nephro-Poly) 1 tab PO 0800 [facility] Last Admin: 09/03/18 09:42 Dose: 1 tab - Labs Labs: 09/02/18 09:58 09/02/18 09:58 PT 12.8 SECONDS (9.7-12.2) H 08/31/18 13:25 INR 1.2 08/31/18 13:25 APTT 29 SECONDS (21-34) 08/31/18 13:25 - Constitutional Appears: No Acute Distress, Chronically Ill - Head Exam Head Exam: NORMAL INSPECTION - Eye Exam Eye Exam: Normal appearance - ENT Exam ENT Exam: Normal Exam - Neck Exam Neck Exam: Normal Inspection - Respiratory Exam Respiratory Exam: Rhonchi Additional comments: Rhonchi at the left base. - Cardiovascular Exam Cardiovascular Exam: REGULAR RHYTHM - GI/Abdominal Exam GI & Abdominal Exam: Soft, Normal Bowel Sounds - Rectal Exam Rectal Exam: Deferred - Exam Exam: NORMAL INSPECTION - Extremities Exam Extremities Exam: Normal Inspection - Back Exam Back Exam: NORMAL INSPECTION - Neurological Exam Neurological Exam: Alert, Awake, Oriented x3 - Psychiatric Exam Psychiatric exam: Anxious - Skin Skin Exam: Dry, Intact, Normal Color Assessment and Plan (1) Ischemic ulcer of heel with necrosis of muscle Status: Resolved (2) Gangrene of toe of right foot Status: Resolved (3) Right middle lobe pneumonia Status: Resolved (4) Uncontrolled diabetes mellitus Status: Chronic (5) ESRD on hemodialysis Status: Chronic (6) Left lower lobe pneumonia Assessment & Plan: On antibiotics. Status: Acute (7) Right sided weakness Status: Resolved
[2018-09-03] MEDS: (Lantus) Insulin Glargine, Recombinant SC SCH (21:34)
[2018-09-03] MEDS: Cefepime IV 1 gm in Dextrose 1 GM/50 ML BAG IVPB SCH (21:34)
--- NOTE | 2018-09-04 06:16 | PN ---
DATE: 09/03/2018 TIME OF EVALUATION: 7:00 a.m. NEUROLOGICAL PROBLEM: Possible partial complex seizures. PHYSICAL EXAMINATION: GENERAL: The patient communicable both in [place] and Vietnamese. Follows commands. VITAL SIGNS: Blood pressure 110/65, mean artery pressure of 80, respiratory rate 18, temperature 97.9 with pulse rate 92. EXTREMITIES: Moves all four extremities against gravity as usual. The rest of the examination is unchanged. Electroencephalogram has been reviewed, bilateral slow activities without any paroxysmal activities. The patient seems to be tolerating with Lamictal 50 mg twice a day. ASSESSMENT AND PLAN: At this point, I would like him to continue same dose. If any change in mental status, the patient can increase the Lamictal to 100 mg twice a day. In the meantime, the patient should have ambulatory video electroencephalogram, which can be done as outpatient. The patient is neurologically stable. At present, signing him off from neurological followup. If any changes in neuro status, please consider to call me back. Nathanael Barraza MD MTDD
[2018-09-04] MEDS: Meropenem 500 MG in Sodium Chloride 0.9% 100 ML IVPB SCH ×2 (06:34→18:45)
[2018-09-04] MEDS: Multivitamin Vitamin B Complex (Nephro-Vite) Tab PO SCH (08:37)
[2018-09-04] MEDS: (Novolog) Insulin Aspart, Recombinant 100 u/ml 10 ml vial SC SCH ×4 (08:37→21:50)
[2018-09-04] MEDS: Bisacodyl 5mg EC Tab PO SCH (09:23)
[2018-09-04] MEDS: Belladonna-Phenobarbital PO SCH ×3 (09:23→18:50)
[2018-09-04] MEDS: Pantoprazole 40 mg EC Tab PO SCH (09:23)
--- NOTE | 2018-09-04 11:03 | EEG ---
DATE: 09/01/2018 This is a 16-channel electroencephalogram of awake and drowsy adult. During the study, photic stimulation was performed. Hyperventilation was not performed. The study was contaminated with persistent movement artifact. The slow activity continuation noted from the beginning. The photic stimulation did not evoke driving response noted at 2 to 20 Hz. IMPRESSION: This is an abnormal electroencephalogram because of persistent slowing throughout the record suggestive of bilateral cerebral dysfunction. This is probably secondary to metabolic, vascular, or degenerative process. Please correlate the findings with the neurological and radiological studies. Nathanael Barraza MD
--- NOTE | 2018-09-04 14:10 | CP.PCM.PN ---
Subjective - Date & Time of Evaluation Date of Evaluation: 09/04/18 Time of Evaluation: 14:07 - Subjective Subjective: Podiatry Progress Note for Dr. Jenkins 78 y/o male seen and evaluated at bedside with Dr Jenkins for bilateral deep tissue injuries to his heels and a healed right hallux ulceration. Patient is AAO x 3 and NAD, resting comfortably in bed. Denies any pain or any acute overnight events. Multipodus boots noted to be in place at this time. Denies any further pedal complaints at this time. Denies any recent N/V/F/C/CP/SOB/D Objective - Vital Signs/Intake and Output Vital Signs (last 24 hours): Temp Pulse Resp BP Pulse Ox 97.5 F L 71 18 108/60 99 09/04/18 07:57 09/04/18 07:57 09/04/18 07:57 09/04/18 07:57 09/04/18 07:57 Intake and Output: 09/04/18 09/04/18 06:59 18:59 Intake Total 500 Balance 500 - Medications Medications: Current Medications Acetaminophen (Tylenol 325mg Tab) 650 mg PO Q6 PRN PRN Reason: Fever >100.4 F Acetaminophen (Tylenol 325mg Tab) 650 mg PO Q6 PRN PRN Reason: Pain, moderate (4-7) Aspirin (Ecotrin) 81 mg PO DAILY [facility] Last Admin: 09/04/18 09:23 Dose: 81 mg Belladonna/Phenobarbital () 1 tab PO TID [facility] Last Admin: 09/04/18 13:08 Dose: 1 tab Bisacodyl (Dulcolax) 5 mg PO DAILY [facility] Last Admin: 09/04/18 09:23 Dose: 5 mg Calcium Acetate (Phoslo) 1,334 mg PO BIDCC [facility] Last Admin: 09/04/18 08:37 Dose: 1,334 mg Carvedilol (Coreg) 6.25 mg PO DAILY [facility] Last Admin: 09/04/18 09:25 Dose: Not Given Docusate Sodium (Colace) 100 mg PO BID [facility] Last Admin: 09/04/18 09:23 Dose: 100 mg Glimepiride (Amaryl) 4 mg PO DAILY [facility] Last Admin: 09/04/18 09:23 Dose: 4 mg Heparin Sodium (Porcine) (Heparin) 5,000 units SC Q8 [facility] Last Admin: 09/04/18 13:09 Dose: 5,000 units Vancomycin HCl 500 mg/ Sodium (Chloride) 100 mls @ 100 mls/hr IVPB MWF [facility]; Protocol Last Admin: 09/04/18 09:23 Dose: 100 mls/hr Cefepime HCl (Maxipime Iv 1 Gm Premix) 1 gm in 50 mls @ 100 mls/hr IVPB DAILY@2200 [facility]; Protocol Last Admin: 09/03/18 21:34 Dose: 100 mls/hr Meropenem 500 mg/ Sodium (Chloride) 100 mls @ 100 mls/hr IVPB Q12H [facility]; Protocol Last Admin: 09/04/18 06:34 Dose: 100 mls/hr Insulin Aspart (Novolog) 0 unit SC ACHS [facility]; Protocol Last Admin: 09/04/18 12:38 Dose: 3 units Insulin Glargine (Lantus) 40 unit SC HS [facility] Last Admin: 09/03/18 21:34 Dose: Not Given Lamotrigine (Lamictal) 50 mg PO BID [facility] Last Admin: 09/04/18 09:23 Dose: 50 mg Ondansetron HCl (Zofran Inj) 4 mg IVP Q4H PRN PRN Reason: Nausea/Vomiting Last Admin: 08/30/18 07:32 Dose: 4 mg Pantoprazole Sodium (Protonix Ec Tab) 40 mg PO DAILY [facility] Last Admin: 09/04/18 09:23 Dose: 40 mg Tamsulosin HCl (Flomax) 0.4 mg PO DAILY [facility] Last Admin: 09/04/18 09:23 Dose: 0.4 mg Vitamin B Complex/Vit C/Folic Acid (Nephro-Poly) 1 tab PO 0800 [facility] Last Admin: 09/04/18 08:37 Dose: 1 tab - Labs Labs: 09/02/18 09:58 09/02/18 09:58 PT 12.8 SECONDS (9.7-12.2) H 08/31/18 13:25 INR 1.2 08/31/18 13:25 APTT 29 SECONDS (21-34) 08/31/18 13:25 - Constitutional Appears: Well, Non-toxic, No Acute Distress - Extremities Exam Additional comments: Lower extremity focused exam: Vasc: DP/PT pulses palpable 2/4 B/L. Temperature gradient warm to warm from proximal to distal WNL. CFT < 3 sec to all digits. No pedal edema noted. Derm: Dry, healed, well epithelialized ulceration to plantar distal tip of hallux with overlying hyperkeratotic tissue and hyperpigmentation of digit noted. No break in skin or soft tissue, malodor, streaking, erythema, active drainage, fluctuance or other clinical signs of infection noted. Deep tissue injuries noted to bilateral heels. No breaks in skin or soft tissue of heels noted B/L. Neuro: protective sensation grossly intact Ortho: no tenderness to palpation of right great toe or bilateral plantar heels at site of deep tissue injuries - Neurological Exam Neurological Exam: Alert, Awake, Oriented x3 - Psychiatric Exam Psychiatric exam: Normal Affect, Normal Mood Assessment and Plan - Assessment and Plan (Free Text) Assessment: 78 y/o male seen and evaluated at bedside with Dr Jenkins for bilateral deep tissue injuries to his heels and a healed right hallux ulceration. Plan: Patient seen and evaluated with Dr. Jenkins Afebrile, absent leukocytosis Foot x-rays show no acute osseous findings, no evidence of osteomyelitis Arterial duplex studies- no significant arterial insufficiency to lower extremities Right distal hallux ulceration completely healed with epithelized layer - left open to air Heel DTI stable to bilateral lower extremities - left open to air Continue offloading with multipodus boots at all times in bed Wound culture + for MRSA, Corynebacterium Continue abx per ID recommendations Patient is stable from podiatric standpoint Upon discharge, patient to follow up with Dr. Jenkins in clinic within 1 week
--- NOTE | 2018-09-04 15:31 | CP.PCM.PN ---
Subjective - Date & Time of Evaluation Date of Evaluation: 09/04/18 Time of Evaluation: 15:30 - Subjective Subjective: Nephrology Consultation Note: Assessment: Stable Rt foot cellulitis and Pneumonia Diabetic chronic Kidney Disease (E11.22) Hypertensive Chronic Kidney Disease (I12.0) End stage renal disease (N18.6) dependence on hemodialysis (Z99.2) (MWF) via AVF Anemia (D64.9), Hyperphosphatemia (E83.39), Secondary Hyperparathyroidism (E21.1), HTN (I12.0) hypotension. AMS Plan: Will plan for HD MWF schedule as ordered. Continue with Nephrovite 1 tab/day. PRBC as needed for anemia. not on LESLI with dialysis as last Hb 10.8 Continue with phos binders, last phos level: 6.2 BP control with meds as ordered. d/c losartan as BP on low side Glycemic control, Dialysis consistent diet Further work up/management as per primary team Dose meds/antibiotics (if needed) for ESRD status. Please avoid fleets/phos enema/magnesium based laxatives in ESRD patients. ID Neuro following Thanks for allowing me to participate in care of your patient. Will follow patient with you. Please call if any Qs Dr Edwardo Valenzuela Office: [phone] Chief Complaint;Rt toe infection and cough HPI: Pt is a 78 year old male with PMHx of DM, HTN, Hyperlipidemia, ESRD on dialysis (MWF), CAD s/p CABG, AVR, BPH and Bipolar disorder presents to ED complaining of cough x 2 weeks and redness, swelling of the right big toe and admitted for cellulitis, pneumonia. Renal consult requested for ESRD management. last HD friday. otherwise feels usual health ROS: [employer] on 08/30/18 for low BP and AMS Cardiovascular: No chest pain. Pulmonary: No shortness of breath . Gastrointestinal: denies abdominal pain No nausea. No vomiting. Genitourinary: No pain while urinating. Denies blood in urine. All other negative except as mentioned in HPI Physical Examination: General Appearance: Comfortable, in no acute respiratory distress, co-operative . Vitals reviewed and noted as below Head; Atraumatic, normocephalic ENT: no ulcers no thrush. Tongue is midline. Oropharynx: no rash or ulcers. EYES: Pupils are equal, round and reactive to light accommodation. Eye muscles and extraocular movement intact. Sclera is anicteric. Neck; supple no lymphadenopathy, no thyromegaly or bruit Lungs: Normal respiratory rate/effort. Breath sounds bilateral equal and clear Heart: Normal rate. s1s2 normal. No rub or gallop. Extremities: no edema. No varicose veins. Neurological: Patient is alert, awake and not confused now. oriented. No focal d eficit. Strength bilateral appropriate and equal Skin: Warm and dry. Normal turgor. No rash. Palpitation: Normal elasticity for age Abdomen: Abdomen is soft. Bowel sounds +. There is no abdominal tenderness, no guarding/rigidity or organomegaly Psych: normal insight and normal affect/mood MSK: no joint tenderness or swelling. Digits and nails normal, no deformity : kidney or bladder not palpable Access: AVF Labs/imaging reviewed. Past medical history, past surgical history, family history, social history, allergy reviewed and noted as below Family Hx: no hx of CKD. Non contributory Objective - Vital Signs/Intake and Output Vital Signs (last 24 hours): Temp Pulse Resp BP Pulse Ox 97.5 F L 69 16 120/53 L 100 09/04/18 14:30 09/04/18 14:30 09/04/18 14:30 09/04/18 15:15 09/04/18 14:30 Intake and Output: 09/04/18 09/04/18 06:59 18:59 Intake Total 500 Balance 500 - Medications Medications: Current Medications Acetaminophen (Tylenol 325mg Tab) 650 mg PO Q6 PRN PRN Reason: Fever >100.4 F Acetaminophen (Tylenol 325mg Tab) 650 mg PO Q6 PRN PRN Reason: Pain, moderate (4-7) Aspirin (Ecotrin) 81 mg PO DAILY [facility] Last Admin: 09/04/18 09:23 Dose: 81 mg Belladonna/Phenobarbital () 1 tab PO TID [facility] Last Admin: 09/04/18 13:08 Dose: 1 tab Bisacodyl (Dulcolax) 5 mg PO DAILY [facility] Last Admin: 09/04/18 09:23 Dose: 5 mg Calcium Acetate (Phoslo) 1,334 mg PO BIDCC [facility] Last Admin: 09/04/18 08:37 Dose: 1,334 mg Carvedilol (Coreg) 6.25 mg PO DAILY [facility] Last Admin: 09/04/18 09:25 Dose: Not Given Docusate Sodium (Colace) 100 mg PO BID [facility] Last Admin: 09/04/18 09:23 Dose: 100 mg Glimepiride (Amaryl) 4 mg PO DAILY [facility] Last Admin: 09/04/18 09:23 Dose: 4 mg Heparin Sodium (Porcine) (Heparin) 5,000 units SC Q8 [facility] Last Admin: 09/04/18 13:09 Dose: 5,000 units Vancomycin HCl 500 mg/ Sodium (Chloride) 100 mls @ 100 mls/hr IVPB MWF [facility]; Protocol Last Admin: 09/04/18 09:23 Dose: 100 mls/hr Cefepime HCl (Maxipime Iv 1 Gm Premix) 1 gm in 50 mls @ 100 mls/hr IVPB DAILY@2200 [facility]; Protocol Last Admin: 09/03/18 21:34 Dose: 100 mls/hr Meropenem 500 mg/ Sodium (Chloride) 100 mls @ 100 mls/hr IVPB Q12H [facility]; Protocol Last Admin: 09/04/18 06:34 Dose: 100 mls/hr Insulin Aspart (Novolog) 0 unit SC ACHS [facility]; Protocol Last Admin: 09/04/18 12:38 Dose: 3 units Insulin Glargine (Lantus) 40 unit SC HS [facility] Last Admin: 09/03/18 21:34 Dose: Not Given Lamotrigine (Lamictal) 50 mg PO BID [facility] Last Admin: 09/04/18 09:23 Dose: 50 mg Ondansetron HCl (Zofran Inj) 4 mg IVP Q4H PRN PRN Reason: Nausea/Vomiting Last Admin: 08/30/18 07:32 Dose: 4 mg Pantoprazole Sodium (Protonix Ec Tab) 40 mg PO DAILY [facility] Last Admin: 09/04/18 09:23 Dose: 40 mg Tamsulosin HCl (Flomax) 0.4 mg PO DAILY [facility] Last Admin: 09/04/18 09:23 Dose: 0.4 mg Vitamin B Complex/Vit C/Folic Acid (Nephro-Poly) 1 tab PO 0800 [facility] Last Admin: 09/04/18 08:37 Dose: 1 tab - Labs Labs: 09/02/18 09:58 09/02/18 09:58 PT 12.8 SECONDS (9.7-12.2) H 08/31/18 13:25 INR 1.2 08/31/18 13:25 APTT 29 SECONDS (21-34) 08/31/18 13:25
--- NOTE | 2018-09-04 19:26 | CP.PCM.PN ---
Subjective - Date & Time of Evaluation Date of Evaluation: 09/04/18 Time of Evaluation: 09:00 - Subjective Subjective: improving afebrile CXR to be repeated Objective - Vital Signs/Intake and Output Vital Signs (last 24 hours): Temp Pulse Resp BP Pulse Ox 97.9 F 81 20 120/63 97 09/04/18 18:51 09/04/18 18:51 09/04/18 18:51 09/04/18 18:51 09/04/18 18:51 - Medications Medications: Current Medications Acetaminophen (Tylenol 325mg Tab) 650 mg PO Q6 PRN PRN Reason: Fever >100.4 F Acetaminophen (Tylenol 325mg Tab) 650 mg PO Q6 PRN PRN Reason: Pain, moderate (4-7) Aspirin (Ecotrin) 81 mg PO DAILY [facility] Last Admin: 09/04/18 09:23 Dose: 81 mg Belladonna/Phenobarbital () 1 tab PO TID [facility] Last Admin: 09/04/18 18:50 Dose: 1 tab Bisacodyl (Dulcolax) 5 mg PO DAILY [facility] Last Admin: 09/04/18 09:23 Dose: 5 mg Calcium Acetate (Phoslo) 1,334 mg PO BIDCC [facility] Last Admin: 09/04/18 18:43 Dose: 1,334 mg Carvedilol (Coreg) 6.25 mg PO DAILY [facility] Last Admin: 09/04/18 09:25 Dose: Not Given Docusate Sodium (Colace) 100 mg PO BID [facility] Last Admin: 09/04/18 18:48 Dose: 100 mg Glimepiride (Amaryl) 4 mg PO DAILY [facility] Last Admin: 09/04/18 09:23 Dose: 4 mg Heparin Sodium (Porcine) (Heparin) 5,000 units SC Q8 [facility] Last Admin: 09/04/18 13:09 Dose: 5,000 units Vancomycin HCl 500 mg/ Sodium (Chloride) 100 mls @ 100 mls/hr IVPB MWF [facility]; Protocol Last Admin: 09/04/18 09:23 Dose: 100 mls/hr Cefepime HCl (Maxipime Iv 1 Gm Premix) 1 gm in 50 mls @ 100 mls/hr IVPB DAILY@2200 [facility]; Protocol Last Admin: 09/03/18 21:34 Dose: 100 mls/hr Meropenem 500 mg/ Sodium (Chloride) 100 mls @ 100 mls/hr IVPB Q12H [facility]; Protocol Last Admin: 09/04/18 18:45 Dose: 100 mls/hr Insulin Aspart (Novolog) 0 unit SC ACHS [facility]; Protocol Last Admin: 09/04/18 18:44 Dose: 4 units Insulin Glargine (Lantus) 40 unit SC HS [facility] Last Admin: 09/03/18 21:34 Dose: Not Given Lamotrigine (Lamictal) 50 mg PO BID [facility] Last Admin: 09/04/18 18:43 Dose: 50 mg Ondansetron HCl (Zofran Inj) 4 mg IVP Q4H PRN PRN Reason: Nausea/Vomiting Last Admin: 08/30/18 07:32 Dose: 4 mg Pantoprazole Sodium (Protonix Ec Tab) 40 mg PO DAILY [facility] Last Admin: 09/04/18 09:23 Dose: 40 mg Pneumococcal Polyvalent Vaccine (Pneumovax 23 Vaccine) 0.5 ml IM .ONCE ONE Stop: 09/05/18 08:01 Tamsulosin HCl (Flomax) 0.4 mg PO DAILY [facility] Last Admin: 09/04/18 09:23 Dose: 0.4 mg Vitamin B Complex/Vit C/Folic Acid (Nephro-Poly) 1 tab PO 0800 [facility] Last Admin: 09/04/18 08:37 Dose: 1 tab - Labs Labs: 09/02/18 09:58 09/02/18 09:58 PT 12.8 SECONDS (9.7-12.2) H 08/31/18 13:25 INR 1.2 08/31/18 13:25 APTT 29 SECONDS (21-34) 08/31/18 13:25 - Constitutional Appears: Non-toxic, Chronically Ill - Head Exam Head Exam: NORMOCEPHALIC - Eye Exam Eye Exam: absent: Scleral icterus - ENT Exam ENT Exam: Mucous Membranes Dry - Neck Exam Neck Exam: absent: Lymphadenopathy - Respiratory Exam Respiratory Exam: Decreased Breath Sounds - Cardiovascular Exam Cardiovascular Exam: REGULAR RHYTHM - GI/Abdominal Exam GI & Abdominal Exam: Distended, Soft - Rectal Exam Rectal Exam: Deferred - Exam Exam: NORMAL INSPECTION Assessment and Plan (1) Gangrene of toe of right foot Status: Resolved (2) Infected ulcer of skin Status: Acute (3) Ischemic ulcer of heel with necrosis of muscle Status: Resolved (4) Pneumonia Status: Acute (5) Right middle lobe pneumonia Status: Resolved (6) ESRD on hemodialysis Status: Chronic (7) Uncontrolled diabetes mellitus Status: Chronic (8) MRSA (methicillin resistant staph aureus) culture positive Status: Acute - Assessment and Plan (Free Text) Assessment: d/c to [facility] follow up CXR
--- NOTE | 2018-09-04 21:19 | CP.PCM.PN ---
Subjective - Date & Time of Evaluation Date of Evaluation: 09/04/18 Time of Evaluation: 21:16 - Subjective Subjective: Patient alert, in no respiratory distress, with improved appetite, and afebrile. Objective - Vital Signs/Intake and Output Vital Signs (last 24 hours): Temp Pulse Resp BP Pulse Ox 97.9 F 81 20 120/63 97 09/04/18 18:51 09/04/18 18:51 09/04/18 18:51 09/04/18 18:51 09/04/18 18:51 - Medications Medications: Current Medications Acetaminophen (Tylenol 325mg Tab) 650 mg PO Q6 PRN PRN Reason: Fever >100.4 F Acetaminophen (Tylenol 325mg Tab) 650 mg PO Q6 PRN PRN Reason: Pain, moderate (4-7) Aspirin (Ecotrin) 81 mg PO DAILY [facility] Last Admin: 09/04/18 09:23 Dose: 81 mg Belladonna/Phenobarbital () 1 tab PO TID [facility] Last Admin: 09/04/18 18:50 Dose: 1 tab Bisacodyl (Dulcolax) 5 mg PO DAILY [facility] Last Admin: 09/04/18 09:23 Dose: 5 mg Calcium Acetate (Phoslo) 1,334 mg PO BIDCC [facility] Last Admin: 09/04/18 18:43 Dose: 1,334 mg Carvedilol (Coreg) 6.25 mg PO DAILY [facility] Last Admin: 09/04/18 09:25 Dose: Not Given Docusate Sodium (Colace) 100 mg PO BID [facility] Last Admin: 09/04/18 18:48 Dose: 100 mg Glimepiride (Amaryl) 4 mg PO DAILY [facility] Last Admin: 09/04/18 09:23 Dose: 4 mg Heparin Sodium (Porcine) (Heparin) 5,000 units SC Q8 [facility] Last Admin: 09/04/18 13:09 Dose: 5,000 units Vancomycin HCl 500 mg/ Sodium (Chloride) 100 mls @ 100 mls/hr IVPB MWF [facility]; Protocol Last Admin: 09/04/18 09:23 Dose: 100 mls/hr Cefepime HCl (Maxipime Iv 1 Gm Premix) 1 gm in 50 mls @ 100 mls/hr IVPB [facility]@2200 [facility]; Protocol Last Admin: 09/03/18 21:34 Dose: 100 mls/hr Meropenem 500 mg/ Sodium (Chloride) 100 mls @ 100 mls/hr IVPB Q12H [facility]; Protocol Last Admin: 09/04/18 18:45 Dose: 100 mls/hr Insulin Aspart (Novolog) 0 unit SC ACHS [facility]; Protocol Last Admin: 09/04/18 18:44 Dose: 4 units Insulin Glargine (Lantus) 40 unit SC HS [facility] Last Admin: 09/03/18 21:34 Dose: Not Given Lamotrigine (Lamictal) 50 mg PO BID [facility] Last Admin: 09/04/18 18:43 Dose: 50 mg Ondansetron HCl (Zofran Inj) 4 mg IVP Q4H PRN PRN Reason: Nausea/Vomiting Last Admin: 08/30/18 07:32 Dose: 4 mg Pantoprazole Sodium (Protonix Ec Tab) 40 mg PO DAILY [facility] Last Admin: 09/04/18 09:23 Dose: 40 mg Pneumococcal Polyvalent Vaccine (Pneumovax 23 Vaccine) 0.5 ml IM .ONCE ONE Stop: 09/05/18 08:01 Tamsulosin HCl (Flomax) 0.4 mg PO DAILY [facility] Last Admin: 09/04/18 09:23 Dose: 0.4 mg Vitamin B Complex/Vit C/Folic Acid (Nephro-Poly) 1 tab PO 0800 [facility] Last Admin: 09/04/18 08:37 Dose: 1 tab - Labs Labs: 09/02/18 09:58 09/02/18 09:58 PT 12.8 SECONDS (9.7-12.2) H 08/31/18 13:25 INR 1.2 08/31/18 13:25 APTT 29 SECONDS (21-34) 08/31/18 13:25 - Constitutional Appears: No Acute Distress, Chronically Ill - Head Exam Head Exam: NORMAL INSPECTION - Eye Exam Eye Exam: Normal appearance - ENT Exam ENT Exam: Normal Exam - Neck Exam Neck Exam: Normal Inspection - Respiratory Exam Respiratory Exam: Rhonchi Additional comments: Rhonchi left base. - Cardiovascular Exam Cardiovascular Exam: REGULAR RHYTHM - GI/Abdominal Exam GI & Abdominal Exam: Soft, Normal Bowel Sounds - Rectal Exam Rectal Exam: Deferred - Exam Exam: NORMAL INSPECTION - Extremities Exam Extremities Exam: Normal Inspection - Back Exam Back Exam: NORMAL INSPECTION - Neurological Exam Neurological Exam: Alert, Awake - Psychiatric Exam Psychiatric exam: Anxious - Skin Skin Exam: Dry, Intact, Normal Color, Warm Assessment and Plan (1) Ischemic ulcer of heel with necrosis of muscle Status: Resolved (2) Gangrene of toe of right foot Status: Resolved (3) Right middle lobe pneumonia Status: Resolved (4) Uncontrolled diabetes mellitus Status: Chronic (5) ESRD on hemodialysis Status: Chronic (6) Left lower lobe pneumonia Assessment & Plan: To repeat CXR. Still on IV Maxipime as per DR Wiley. Status: Acute (7) Right sided weakness Status: Resolved
[2018-09-04] MEDS: (Lantus) Insulin Glargine, Recombinant SC SCH (22:48)
[2018-09-04] MEDS: Cefepime IV 1 gm in Dextrose 1 GM/50 ML BAG IVPB SCH (22:49)
[2018-09-05] MEDS: Meropenem 500 MG in Sodium Chloride 0.9% 100 ML IVPB SCH ×2 (06:30→18:04)
[2018-09-05] MEDS ORDERED: Pneumococcal 23-Valent Vaccine IM ONE (08:00)
[2018-09-05 08:37] LABS: BASO % 0.5 % (0.0-2.0); EOS # 0.2 K/uL (0.0-0.7); EOS % 3.8 % (0.0-4.0); HEMOGLOBIN 10.3 g/dL (12.0-18.0); LYMPH # 1.6 K/uL (1.0-4.3); LYMPH % 24.5 % (20.0-40.0); MEAN CELL VOLUME 89.3 fL (80.0-94.0); MEAN CORPUSCULAR HEMOGLOBIN 29.6 pg (27.0-31.0); MEAN CORPUSCULAR HGB CONC 33.2 g/dL (33.0-37.0); MEAN PLATELET VOLUME 10.1 fL (7.2-11.7); MONO # 0.6 K/uL (0.0-0.8); MONO % 8.8 % (0.0-10.0); NEUT % 62.4 % (50.0-75.0); NRBC % 0.1 % (0.0-2.0); RBC 3.49 Mil/uL (4.40-5.90); RED CELL DISTRIBUTION WIDTH 16.5 % (11.5-14.5); WHITE BLOOD COUNT 6.5 K/uL (4.8-10.8)
[2018-09-05] MEDS: (Novolog) Insulin Aspart, Recombinant 100 u/ml 10 ml vial SC SCH ×4 (08:37→23:22)
[2018-09-05] MEDS: Multivitamin Vitamin B Complex (Nephro-Vite) Tab PO SCH (08:37)
--- NOTE | 2018-09-05 08:56 | RAD ---
Date of service: 09/04/2018 HISTORY: POSS PNA COMPARISON: Portable chest 08/30/2018. FINDINGS: LUNGS: No active pulmonary disease. PLEURA: No significant pleural effusion identified, no pneumothorax apparent. CARDIOVASCULAR: Calcific atherosclerotic changes are seen related to the thoracic aorta. Normal cardiac size. No pulmonary vascular congestion. Median sternotomy reiterated as well as prosthetic cardiac valve. OSSEOUS STRUCTURES: No significant abnormalities. VISUALIZED UPPER ABDOMEN: Normal. OTHER FINDINGS: None. IMPRESSION: No acute cardiopulmonary disease appreciable. Prosthetic cardiac valve and median sternotomy reiterated. No infiltrate pulmonary vascular congestion bilaterally.
[2018-09-05 09:10] LABS: ALBUMIN 3.3 g/dL (3.5-5.0); CALCIUM 8.6 mg/dl (8.6-10.4)
[2018-09-05] MEDS: Belladonna-Phenobarbital PO SCH ×3 (10:14→17:44)
[2018-09-05] MEDS: Bisacodyl 5mg EC Tab PO SCH (10:15)
[2018-09-05] MEDS: Pantoprazole 40 mg EC Tab PO SCH (10:15)
--- NOTE | 2018-09-05 12:04 | CP.PCM.PN ---
Subjective - Date & Time of Evaluation Date of Evaluation: 09/05/18 Time of Evaluation: 12:03 - Subjective Subjective: Nephrology Consultation Note: Assessment: Stable Rt foot cellulitis and Pneumonia Diabetic chronic Kidney Disease (E11.22) Hypertensive Chronic Kidney Disease (I12.0) End stage renal disease (N18.6) dependence on hemodialysis (Z99.2) (MWF) via AVF Anemia (D64.9), Hyperphosphatemia (E83.39), Secondary Hyperparathyroidism (E21.1), HTN (I12.0) hypotension. AMS Plan: Will plan for HD MWF schedule as ordered. Continue with Nephrovite 1 tab/day. PRBC as needed for anemia. on LESLI with dialysis as last Hb 10.4 Continue with phos binders, last phos level: 6.2 BP control with meds as ordered. d/c losartan as BP on low side Glycemic control, Dialysis consistent diet Further work up/management as per primary team Dose meds/antibiotics (if needed) for ESRD status. Please avoid fleets/phos enema/magnesium based laxatives in ESRD patients. ID Neuro following Thanks for allowing me to participate in care of your patient. Will follow patient with you. Please call if any Qs Dr Edwardo Valenzuela Office: [phone] Chief Complaint;Rt toe infection and cough HPI: Pt is a 78 year old male with PMHx of DM, HTN, Hyperlipidemia, ESRD on dialysis (MWF), CAD s/p CABG, AVR, BPH and Bipolar disorder presents to ED complaining of cough x 2 weeks and redness, swelling of the right big toe and admitted for cellulitis, pneumonia. Renal consult requested for ESRD management. last HD friday. otherwise feels usual health ROS: Cardiovascular: No chest pain. Pulmonary: No shortness of breath . Gastrointestinal: denies abdominal pain No nausea. No vomiting. Genitourinary: No pain while urinating. Denies blood in urine. All other negative except as mentioned in HPI Physical Examination: General Appearance: Comfortable, in no acute respiratory distress, co-operative . Vitals reviewed and noted as below Head; Atraumatic, normocephalic ENT: no ulcers no thrush. Tongue is midline. Oropharynx: no rash or ulcers. EYES: Pupils are equal, round and reactive to light accommodation. Eye muscles and extraocular movement intact. Sclera is anicteric. Neck; supple no lymphadenopathy, no thyromegaly or bruit Lungs: Normal respiratory rate/effort. Breath sounds bilateral equal and clear Heart: Normal rate. s1s2 normal. No rub or gallop. Extremities: no edema. No varicose veins. Neurological: Patient is alert, awake and not confused now. oriented. No focal deficit. Strength bilateral appropriate and equal Skin: Warm and dry. Normal turgor. No rash. Palpitation: Normal elasticity for age Abdomen: Abdomen is soft. Bowel sounds +. There is no abdominal tenderness, no guarding/rigidity or organomegaly Psych: normal insight and normal affect/mood MSK: no joint tenderness or swelling. Digits and nails normal, no deformity : kidney or bladder not palpable Access: AVF Labs/imaging reviewed. Past medical history, past surgical history, family history, social history, allergy reviewed and noted as below Family Hx: no hx of CKD. Non contributory Objective - Vital Signs/Intake and Output Vital Signs (last 24 hours): Temp Pulse Resp BP Pulse Ox 97.5 F L 68 20 129/58 L 99 09/05/18 07:59 09/05/18 07:59 09/05/18 07:59 09/05/18 07:59 09/05/18 07:59 Intake and Output: 09/05/18 09/05/18 06:59 18:59 Intake Total 650 400 Balance 650 400 - Medications Medications: Current Medications Acetaminophen (Tylenol 325mg Tab) 650 mg PO Q6 PRN PRN Reason: Fever >100.4 F Acetaminophen (Tylenol 325mg Tab) 650 mg PO Q6 PRN PRN Reason: Pain, moderate (4-7) Aspirin (Ecotrin) 81 mg PO DAILY [facility] Last Admin: 09/05/18 10:15 Dose: 81 mg Belladonna/Phenobarbital () 1 tab PO TID [facility] Last Admin: 09/04/18 18:50 Dose: 1 tab Bisacodyl (Dulcolax) 5 mg PO DAILY [facility] Last Admin: 09/05/18 10:15 Dose: 5 mg Calcium Acetate (Phoslo) 1,334 mg PO BIDCC [facility] Last Admin: 09/05/18 08:37 Dose: 1,334 mg Carvedilol (Coreg) 6.25 mg PO DAILY [facility] Last Admin: 09/05/18 10:15 Dose: 6.25 mg Docusate Sodium (Colace) 100 mg PO BID [facility] Last Admin: 09/05/18 10:14 Dose: 100 mg Epoetin Chato (Procrit) 4,000 unit [place] [facility] [place] Glimepiride (Amaryl) 4 mg PO DAILY [facility] Last Admin: 09/05/18 10:15 Dose: 4 mg Heparin Sodium (Porcine) (Heparin) 5,000 units SC Q8 [facility] Last Admin: 09/05/18 06:30 Dose: 5,000 units Vancomycin HCl 500 mg/ Sodium (Chloride) 100 mls @ 100 [facility]ls[facility]; Protocol Last Admin: 09/04/18 09:23 Dose: 100 mls/hr Cefepime HCl (Maxipime Iv 1 Gm Premix) 1 gm in 50 mls @ 100 mls/hr IVPB DAILY@2200 [facility]; Protocol Last Admin: 09/04/18 22:49 Dose: 100 mls/hr Meropenem 500 mg/ Sodium (Chloride) 100 mls @ 100 mls/hr IVPB Q12H [facility]; Protocol Last Admin: 09/05/18 06:30 Dose: 100 mls/hr Insulin Aspart (Novolog) 0 unit SC [facility]; Protocol Last Admin: 09/05/18 08:37 Dose: 2 units Insulin Glargine (Lantus) 40 unit SC [facility] Last Admin: 09/04/18 22:48 Dose: 40 u Lamotrigine (Lamictal) 50 mg PO BID [facility] Last Admin: 09/05/18 10:13 Dose: 50 mg Ondansetron HCl (Zofran Inj) 4 mg IVP Q4H PRN PRN Reason: Nausea/Vomiting Last Admin: 08/30/18 07:32 Dose: 4 mg Pantoprazole Sodium (Protonix Ec Tab) 40 mg PO DAILY [facility] Last Admin: 09/05/18 10:15 Dose: 40 mg Tamsulosin HCl (Flomax) 0.4 mg PO DAILY [facility] Last Admin: 09/05/18 10:13 Dose: 0.4 mg Vitamin B Complex/Vit C/Folic Acid (Nephro-Poly) 1 tab PO 0800 [facility] Last Admin: 09/05/18 08:37 Dose: 1 tab - Labs Labs: 09/05/18 08:24 09/05/18 08:24 PT 12.8 SECONDS (9.7-12.2) H 08/31/18 13:25 INR 1.2 08/31/18 13:25 APTT 29 SECONDS (21-34) 08/31/18 13:25
--- NOTE | 2018-09-05 14:02 | PN ---
DATE: 09/05/2018 LOCATION: 554. SUBJECTIVE: This is a 78-year-old male, seen and examined early in rounds, appeared to be somewhat more awake and oriented, still on dialysis, reported somewhat tolerating oral intake, much of it. No reported chest pain, palpitation, or evidence of active GI bleeding. The entire chart is reviewed including the most recent lab and radiology study results, current and the previous medication list. Case discussed with the staff at length. Today's lab result showed hemoglobin 10.3, hematocrit 31.1 with BUN 43, creatinine 7.4, blood glucose level 292, AST 62, albumin 3.3 with the most recent chest x-ray done yesterday. Report is seen. PHYSICAL EXAMINATION: GENERAL: A 78-year-old male. VITAL SIGNS: Afebrile with pulse of 70, respiratory rate 20-22, blood pressure 122/64. HEENT: Showed mildly pale dry oral mucous membrane. Nonicteric sclerae. LUNGS: Few scattered crepitation. Decreased air entry at bases. HEART: Positive S1 and S2. ABDOMEN: Soft with mild generalized tenderness. No mass or organomegaly. No rebound tenderness or guarding. EXTREMITIES: Without significant clubbing, cyanosis, or edema. NEURO: No reported new neurological deficits, sensory or motor. IMPRESSION: 1. Re-exacerbation of peptic ulcer disease with mild dyspepsia and dysphagia, improving with subsequent increase of his oral intake. 2. Reported gangrenous of the right foot covered with clean dressing with ischemic changes. 3. Re-exacerbation of peptic ulcer disease. 4. Right-sided pneumonia. 5. Anemia with the possibility of gastrointestinal blood loss was raised. 6. Renal failure, on hemodialysis. 7. Possible fecal impaction by radiology study results. The patient still has not well formed and adequate bowel movement. SUGGESTION: 1. Continue current management. 2. Repeat stool for occult blood. 3. Follow up in H and H and cancer markers. If there is subsequent drop of hemoglobin and hematocrit, then endoscopic evaluation of the GI tract to be kept in mind when the patient is more stable clinically. Further recommendation to follow. Cindy Corrales MD [facility] # [id number]
[2018-09-05] MEDS: Cefepime IV 1 gm in Dextrose 1 GM/50 ML BAG IVPB SCH (21:51)
[2018-09-05] MEDS: (Lantus) Insulin Glargine, Recombinant SC SCH (21:51)
--- NOTE | 2018-09-05 23:54 | CP.PCM.PN ---
Subjective - Date & Time of Evaluation Date of Evaluation: 09/05/18 Time of Evaluation: 18:00 - Subjective Subjective: Patient has no complaint. Afebrile. CXR: no infiltrtae. On Maxipime IV. Objective - Vital Signs/Intake and Output Vital Signs (last 24 hours): Temp Pulse Resp BP Pulse Ox 98 F 96 H 20 138/61 96 09/05/18 16:00 09/05/18 16:00 09/05/18 16:00 09/05/18 16:00 09/05/18 16:00 Intake and Output: 09/05/18 09/06/18 18:59 06:59 Intake Total 400 400 Balance 400 400 - Medications Medications: Current Medications Acetaminophen (Tylenol 325mg Tab) 650 mg PO Q6 PRN PRN Reason: Fever >100.4 F Acetaminophen (Tylenol 325mg Tab) 650 mg PO Q6 PRN PRN Reason: Pain, moderate (4-7) Aspirin (Ecotrin) 81 mg PO DAILY [facility] Last Admin: 09/05/18 10:15 Dose: 81 mg Belladonna/Phenobarbital () 1 tab PO TID [facility] Last Admin: 09/05/18 17:44 Dose: 1 tab Bisacodyl (Dulcolax) 5 mg PO DAILY [facility] Last Admin: 09/05/18 10:15 Dose: 5 mg [facility] ([facility]) [facility] Last Admin: 09/05/18 17:44 Dose: 1,334 mg Carvedilol (Coreg) 6.25 mg PO DAILY [facility] Last Admin: 09/05/18 10:15 Dose: 6.25 mg Docusate Sodium (Colace) 100 mg PO BID [facility] Last Admin: 09/05/18 17:46 Dose: 100 mg Epoetin Chato (Procrit) 4,000 unit IV [facility] [place] Glimepiride (Amaryl) 4 mg PO DAILY [facility] Last Admin: 09/05/18 10:15 Dose: 4 mg Heparin Sodium (Porcine) (Heparin) 5,000 units SC Q8 [facility] Last Admin: 09/05/18 21:51 Dose: 5,000 units Vancomycin HCl 500 mg/ Sodium (Chloride) 100 mls [facility]; Protocol Last Admin: 09/04/18 09:23 Dose: 100 mls/hr Cefepime HCl (Maxipime Iv 1 Gm Premix) 1 gm in 50 mls @ 100 mls/hr IVPB DAILY@2200 [facility]; Protocol Last Admin: 09/05/18 21:51 Dose: 100 mls/hr Meropenem 500 mg/ Sodium (Chloride) 100 mls @ 100 mls/hr IVPB Q12H [facility]; Protocol Last Admin: 09/05/18 18:04 Dose: 100 mls/hr Insulin Aspart (Novolog) 0 unit SC ACHS [facility]; Protocol Last Admin: 09/05/18 23:22 Dose: Not Given Insulin Glargine (Lantus) 40 unit SC HS [facility] Last Admin: 09/05/18 21:51 Dose: 40 u Lamotrigine (Lamictal) 50 mg PO BID [facility] Last Admin: 09/05/18 17:44 Dose: 50 mg Ondansetron HCl (Zofran Inj) 4 mg IVP Q4H PRN PRN Reason: Nausea/Vomiting Last Admin: 08/30/18 07:32 Dose: 4 mg Pantoprazole Sodium (Protonix Ec Tab) 40 mg PO DAILY [facility] Last Admin: 09/05/18 10:15 Dose: 40 mg Tamsulosin HCl (Flomax) 0.4 mg PO DAILY [facility] Last Admin: 09/05/18 10:13 Dose: 0.4 mg Vitamin B Complex/Vit C/Folic Acid (Nephro-Poly) 1 tab PO 0800 [facility] Last Admin: 09/05/18 08:37 Dose: 1 tab - Labs Labs: 09/05/18 08:24 09/05/18 08:24 PT 12.8 SECONDS (9.7-12.2) H 08/31/18 13:25 INR 1.2 08/31/18 13:25 APTT 29 SECONDS (21-34) 08/31/18 13:25 - Constitutional Appears: No Acute Distress, Chronically Ill - Head Exam Head Exam: NORMOCEPHALIC - Eye Exam Eye Exam: Normal appearance - ENT Exam ENT Exam: Normal Exam - Neck Exam Neck Exam: Normal Inspection - Respiratory Exam Respiratory Exam: Rhonchi Additional comments: Rhonchi left base. - Cardiovascular Exam Cardiovascular Exam: REGULAR RHYTHM - GI/Abdominal Exam GI & Abdominal Exam: Soft, Normal Bowel Sounds - Rectal Exam Rectal Exam: Deferred - Extremities Exam Extremities Exam: Normal Inspection - Back Exam Back Exam: NORMAL INSPECTION - Neurological Exam Neurological Exam: Alert, Awake Assessment and Plan (1) Ischemic ulcer of heel with necrosis of muscle Status: Resolved (2) Gangrene of toe of right foot Status: Resolved (3) Right middle lobe pneumonia Status: Resolved (4) Uncontrolled diabetes mellitus Status: Chronic (5) ESRD on hemodialysis Status: Chronic (6) Left lower lobe pneumonia Assessment & Plan: CXR: no infiltrates. Status: Acute (7) Right sided weakness Status: Ruled-out
[2018-09-06] MEDS: Meropenem 500 MG in Sodium Chloride 0.9% 100 ML IVPB SCH (06:08)
[2018-09-06] MEDS: (Novolog) Insulin Aspart, Recombinant 100 u/ml 10 ml vial SC SCH ×4 (07:35→22:18)
[2018-09-06] MEDS: Multivitamin Vitamin B Complex (Nephro-Vite) Tab PO SCH (08:38)
[2018-09-06] MEDS: Bisacodyl 5mg EC Tab PO SCH (09:16)
[2018-09-06] MEDS: Belladonna-Phenobarbital PO SCH ×3 (09:16→19:44)
[2018-09-06] MEDS: Pantoprazole 40 mg EC Tab PO SCH (09:16)
--- NOTE | 2018-09-06 09:36 | CP.PCM.PN ---
Subjective - Date & Time of Evaluation Date of Evaluation: 09/06/18 Time of Evaluation: 09:36 - Subjective Subjective: Podiatry Progress Note for Dr. Jenkins 78 y/o male seen and evaluated at bedside this morning for bilateral deep tissue injuries to his heels and fully healed right hallux ulceration. Patient is AAO x 3 and NAD at time of visit, resting comfortably in bed. Denies any pain or any acute overnight events. Multipodus boots in place bilaterally. Denies any new pedal complaints. Denies any recent N/V/F/C/CP/SOB/D Objective - Vital Signs/Intake and Output Vital Signs (last 24 hours): Temp Pulse Resp BP Pulse Ox 97.7 F 65 20 123/57 L 96 09/06/18 08:45 09/06/18 08:45 09/06/18 08:45 09/06/18 08:45 09/06/18 08:45 Intake and Output: 09/06/18 09/06/18 06:59 18:59 Intake Total 400 Balance 400 - Medications Medications: Current Medications Acetaminophen (Tylenol 325mg Tab) 650 mg PO Q6 PRN PRN Reason: Fever >100.4 F Acetaminophen (Tylenol 325mg Tab) 650 mg PO Q6 PRN PRN Reason: Pain, moderate (4-7) Aspirin (Ecotrin) 81 mg PO DAILY [facility] Last Admin: 09/06/18 09:16 Dose: 81 mg Belladonna/Phenobarbital () 1 tab PO TID [facility] [place] Last Admin: 09/06/18 09:16 Dose: 1 tab Bisacodyl (Dulcolax) 5 mg PO DAILY [facility] [place] Last Admin: 09/06/18 09:16 Dose: 5 mg Calcium Acetate (Phoslo) 1,334 mg PO BIDCC [facility] [place] Last Admin: 09/06/18 08:38 Dose: 1,334 mg Carvedilol (Coreg) 6.25 mg PO DAILY [facility] [place] Last Admin: 09/06/18 09:16 Dose: 6.25 mg Docusate Sodium (Colace) 100 mg PO BID [facility] [place] Last Admin: 09/06/18 09:16 Dose: 100 mg Epoetin Chato (Procrit) 4,[facility] Glimepiride (Amaryl) 4 mg PO DAILY [facility] Last Admin: 09/06/18 09:16 Dose: 4 mg Heparin Sodium (Porcine) (Heparin) 5,000 units SC Q8 [facility] [place] Last Admin: 09/06/18 06:08 Dose: 5,000 units Vancomycin HCl 500 mg/ Sodium (Chloride) 100 mls @ 100 mls/hr IVPB MWF [facility]; Protocol Last Admin: 09/04/18 09:23 Dose: 100 mls/hr Cefepime HCl (Maxipime Iv 1 Gm Premix) 1 gm in 50 mls @ 100 mls/hr IVPB DAILY @2200 [facility]; Protocol Last Admin: 09/05/18 21:51 Dose: 100 mls/hr Meropenem 500 mg/ Sodium (Chloride) 100 mls @ 100 mls/hr IVPB Q12H [facility]; Protocol Last Admin: 09/06/18 06:08 Dose: 100 mls/hr Insulin Aspart (Novolog) 0 unit SC ACHS [facility]; Protocol Last Admin: 09/06/18 07:35 Dose: Not Given Insulin Glargine (Lantus) 40 unit SC HS [facility] [place] Last Admin: 09/05/18 21:51 Dose: 40 u Lamotrigine (Lamictal) 50 mg PO BID [facility] [place] Last Admin: 09/06/18 09:16 Dose: 50 mg Ondansetron HCl (Zofran Inj) 4 mg IVP Q4H PRN PRN Reason: Nausea/Vomiting Last Admin: 08/30/18 07:32 Dose: 4 mg Pantoprazole Sodium (Protonix Ec Tab) 40 mg PO DAILY [facility] [place] Last Admin: 09/06/18 09:16 Dose: 40 mg Tamsulosin HCl (Flomax) 0.4 mg PO DAILY [facility] [place] Last Admin: 09/06/18 09:16 Dose: 0.4 mg Vitamin B Complex/Vit C/Folic Acid (Nephro-Poly) 1 tab PO 0800 [facility] Last Admin: 09/06/18 08:38 Dose: 1 tab - Labs Labs: 09/05/18 08:24 09/05/18 08:24 PT 12.8 SECONDS (9.7-12.2) H 08/31/18 13:25 INR 1.2 08/31/18 13:25 APTT 29 SECONDS (21-34) 08/31/18 13:25 - Constitutional Appears: Well, Non-toxic, No Acute Distress - Extremities Exam Additional comments: Lower extremity focused exam: Vasc: DP/PT pulses palpable 2/4 B/L. Temperature gradient warm to warm from proximal to distal WNL. CFT < 3 sec to all digits. No pedal edema noted. Derm: Dry, healed, well epithelialized ulceration to plantar distal tip of hallux with overlying hyperkeratotic tissue and hyperpigmentation of digit noted. No break in skin or soft tissue, malodor, streaking, erythema, active drainage, fluctuance or other clinical signs of infection noted. Deep tissue injuries noted to bilateral heels. No breaks in skin or soft tissue of heels noted B/L Neuro: protective sensation grossly intact Ortho: no tenderness to palpation of right great toe or bilateral plantar heels - Neurological Exam Neurological Exam: Alert, Awake, Oriented x3 - Psychiatric Exam Psychiatric exam: Normal Affect, Normal Mood Assessment and Plan - Assessment and Plan (Free Text) Assessment: 78 y/o male seen and evaluated at bedside with Dr Jenkins for bilateral deep tissue injuries to his heels and a healed right hallux ulceration. Plan: Patient seen and evaluated at bedside Discussed plan with Dr. Jenkins Afebrile, absent leukocytosis Foot x-rays show no acute osseous findings, no evidence of osteomyelitis Arterial duplex studies- no significant arterial insufficiency to lower ex tremities Right distal hallux ulceration completely healed with epithelized layer - left open to air Heel DTI stable to bilateral lower extremities - left open to air Continue offloading with multipodus boots at all times in bed Wound culture + for MRSA, Corynebacterium Continue abx per ID recommendations Patient is stable from podiatric standpoint Upon discharge, patient to follow up with Dr. Jenkins in clinic within 1 week
--- NOTE | 2018-09-06 10:20 | PN ---
DATE: 09/06/2018 LOCATION: 554. SUBJECTIVE: This 78-year-old male seen and examined in rounds without significant clinical changes or reported active bleeding with intermittent period of abdominal pain and abdominal distention on and off, no chest pain or palpitation, chills or fever or significant shortness of breath. The patient is still on IV antibiotics. Most recent lab results showed today's blood glucose level of 134. Rest of lab results is still pending, but the patient has, by recent history, increased BUN and creatinine 43 and 7.4. PHYSICAL EXAMINATION: GENERAL: A 78-year-old male. VITAL SIGNS: Afebrile with pulse of 74, respiratory rate 20 to 22, blood pressure 136/60. HEENT: Showed pale. dry oral mucous membrane. Nonicteric sclerae. LUNGS: Scattered crepitation. Decreased air entry at bases. HEART: Positive S1 and S2. ABDOMEN: Soft with midepigastric and midabdominal tenderness. No mass or organomegaly. Bowel sounds are present. It has to be mentioned that during my physical examination, the patient is still complaining of some dysphagia with nausea, which had been gradually improved but not completely. EXTREMITIES: With lower extremities mild edematous changes, no cyanosis or clubbing. NEUROLOGIC: No reported new neurological deficits, sensory or motor. SKIN: The patient still has hypererythematous changes with discoloration of the right foot covered with green dressing. IMPRESSION: 1. Dysphagia, slightly and gradually improving, with re-exacerbation of peptic ulcer disease and mild dyspepsia. 2. Right-sided pneumonia. 3. Gangrenous of the right foot. 4. Anemia with possible gastrointestinal blood loss. 6. Renal failure, on hemodialysis. 7. Fecal impaction by radiology study results. The patient had no bowel movement for the last few days so far. SUGGESTIONS: 1. Agree with your plan. 2. Endoscopic evaluation of the upper and lower GI tract if the patient's symptoms persists and/or subsequent drop of hemoglobin and hematocrit. 3. Follow up in cancer markers. 4. Further recommendation to follow. Cindy Corrales MD
--- NOTE | 2018-09-06 12:50 | CP.PCM.PN ---
Subjective - Date & Time of Evaluation Date of Evaluation: 09/06/18 Time of Evaluation: 12:50 - Subjective Subjective: Nephrology Consultation Note: Assessment: Stable Rt foot cellulitis and Pneumonia Diabetic chronic Kidney Disease (E11.22) Hypertensive Chronic Kidney Disease (I12.0) End stage renal disease (N18.6) dependence on hemodialysis (Z99.2) (MWF) via AVF Anemia (D64.9), Hyperphosphatemia (E83.39), Secondary Hyperparathyroidism (E21.1), HTN (I12.0) hypotension. AMS Plan: Will plan for HD MWF schedule as ordered. Continue with Nephrovite 1 tab/day. PRBC as needed for anemia. on LESLI with dialysis as last Hb 10.4 Continue with phos binders, last phos level: 6.2 BP control with meds as ordered. d/c losartan as BP on low side Glycemic control, Dialysis consistent diet Further work up/management as per primary team Dose meds/antibiotics (if needed) for ESRD status. Please avoid fleets/phos enema/magnesium based laxatives in ESRD patients. ID Neuro following Thanks for allowing me to participate in care of your patient. Will follow patient with you. Please call if any Qs Dr Edwardo Valenzuela Office: [phone] Chief Complaint;Rt toe infection and cough HPI: Pt is a 78 year old male with PMHx of DM, HTN, Hyperlipidemia, ESRD on dialysis (MWF), CAD s/p CABG, AVR, BPH and Bipolar disorder presents to ED complaining of cough x 2 weeks and redness, swelling of the right big toe and admitted for cellulitis, pneumonia. Renal consult requested for ESRD management. last HD friday. otherwise feels usual health ROS: Cardiovascular: No chest pain. Pulmonary: No shortness of breath . Gastrointestinal: denies abdominal pain No nausea. No vomiting. Genitourinary: No pain while urinating. Denies blood in urine. All other negative except as mentioned in HPI Physical Examination: General Appearance: Comfortable, in no acute respiratory distress, co-operative . Vitals reviewed and noted as below Head; Atraumatic, normocephalic ENT: no ulcers no thrush. Tongue is midline. Oropharynx: no rash or ulcers. EYES: Pupils are equal, round and reactive to light accommodation. Eye muscles and extraocular movement intact. Sclera is anicteric. Neck; supple no lymphadenopathy, no thyromegaly or bruit Lungs: Normal respiratory rate/effort. Breath sounds bilateral equal and clear Heart: Normal rate. s1s2 normal. No rub or gallop. Extremities: no edema. No varicose veins. Neurological: Patient is alert, awake and not confused now. oriented. No focal deficit. Strength bilateral appropriate and equal Skin: Warm and dry. Normal turgor. No rash. Palpitation: Normal elasticity for age Abdomen: Abdomen is soft. Bowel sounds +. There is no abdominal tenderness, no guarding/rigidity or organomegaly Psych: normal insight and normal affect/mood MSK: no joint tenderness or swelling. Digits and nails normal, no deformity : kidney or bladder not palpable Access: AVF Labs/imaging reviewed. Past medical history, past surgical history, family history, social history, allergy reviewed and noted as below Family Hx: no hx of CKD. Non contributory Objective - Vital Signs/Intake and Output Vital Signs (last 24 hours): Temp Pulse Resp BP Pulse Ox 97.7 F 65 20 123/57 L 96 09/06/18 08:45 09/06/18 08:45 09/06/18 08:45 09/06/18 08:45 09/06/18 08:45 Intake and Output: 09/06/18 09/06/18 06:59 18:59 Intake Total 400 Balance 400 - Medications Medications: Current Medications Acetaminophen (Tylenol 325mg Tab) 650 mg PO Q6 PRN PRN Reason: Fever >100.4 F Acetaminophen (Tylenol 325mg Tab) 650 mg PO Q6 PRN PRN Reason: Pain, moderate (4-7) Aspirin (Ecotrin) 81 mg PO DAILY [facility] Last Admin: 09/06/18 09:16 Dose: 81 mg Belladonna/Phenobarbital () 1 tab PO TID [facility] Last Admin: 09/06/18 09:16 Dose: 1 tab Bisacodyl (Dulcolax) 5 mg PO DAILY [facility] Last Admin: 09/06/18 09:16 Dose: 5 mg Calcium Acetate (Phoslo) 1,334 mg PO BIDCC [facility] Last Admin: 09/06/18 08:38 Dose: 1,334 mg Carvedilol (Coreg) 6.25 mg PO DAILY [facility] Last Admin: 09/06/18 09:16 Dose: 6.25 mg Docusate Sodium (Colace) 100 mg PO BID [facility] Last Admin: 09/06/18 09:16 Dose: 100 mg Epoetin Chato (Procrit) 4,000 unit IV [facility] [place] Glimepiride (Amaryl) 4 mg PO DAILY [facility] Last Admin: 09/06/18 09:16 Dose: 4 mg Heparin Sodium (Porcine) (Heparin) 5,000 units SC Q8 [facility] Last Admin: 09/06/18 06:08 Dose: 5,000 units Vancomycin HCl 500 mg/ Sodium (Chloride) 100 mls @ 100 mls/hr [facility]; Protocol Last Admin: 09/04/18 09:23 Dose: 100 mls/hr Cefepime HCl (Maxipime Iv 1 Gm Premix) 1 gm in 50 mls @ 100 mls/hr IVPB DAILY@2200 [facility]; Protocol Last Admin: 09/05/18 21:51 Dose: 100 mls/hr Meropenem 500 mg/ Sodium (Chloride) 100 mls @ 100 mls/hr IVPB Q12H [facility]; Protocol Last Admin: 09/06/18 06:08 Dose: 100 mls/hr Insulin Aspart (Novolog) 0 unit SC ACHS [facility]; Protocol Last Admin: 09/06/18 07:35 Dose: Not Given Insulin Glargine (Lantus) 40 unit SC [facility] Last Admin: 09/05/18 21:51 Dose: 40 u Lamotrigine (Lamictal) 50 mg PO BID [facility] Last Admin: 09/06/18 09:16 Dose: 50 mg Ondansetron HCl (Zofran Inj) 4 mg IVP Q4H PRN PRN Reason: Nausea/Vomiting Last Admin: 08/30/18 07:32 Dose: 4 mg Pantoprazole Sodium (Protonix Ec Tab) 40 mg PO DAILY [facility] Last Admin: 09/06/18 09:16 Dose: 40 mg Tamsulosin HCl (Flomax) 0.4 mg PO DAILY [facility] Last Admin: 09/06/18 09:16 Dose: 0.4 mg Vitamin B Complex/Vit C/Folic Acid (Nephro-Poly) 1 tab PO 0800 [facility] Last Admin: 09/06/18 08:38 Dose: 1 tab - Labs Labs: 09/05/18 08:24 09/05/18 08:24 PT 12.8 SECONDS (9.7-12.2) H 08/31/18 13:25 INR 1.2 08/31/18 13:25 APTT 29 SECONDS (21-34) 08/31/18 13:25
--- NOTE | 2018-09-06 16:21 | CP.PCM.PN ---
Subjective - Date & Time of Evaluation Date of Evaluation: 09/06/18 Time of Evaluation: 09:00 - Subjective Subjective: awake alert NAD Objective - Vital Signs/Intake and Output Vital Signs (last 24 hours): Temp Pulse Resp BP Pulse Ox 97.7 F 65 20 123/57 L 96 09/06/18 08:45 09/06/18 08:45 09/06/18 08:45 09/06/18 08:45 09/06/18 08:45 Intake and Output: 09/06/18 09/06/18 06:59 18:59 Intake Total 400 Balance 400 - Medications Medications: Current Medications Acetaminophen (Tylenol 325mg Tab) 650 mg PO Q6 PRN PRN Reason: Fever >100.4 F Acetaminophen (Tylenol 325mg Tab) 650 mg PO Q6 PRN PRN Reason: Pain, moderate (4-7) Aspirin (Ecotrin) 81 mg PO DAILY [facility] Last Admin: 09/06/18 09:16 Dose: 81 mg Belladonna/Phenobarbital () 1 tab PO TID [facility] Last Admin: 09/06/18 13:06 Dose: 1 tab Bisacodyl (Dulcolax) 5 mg PO DAILY [facility] Last Admin: 09/06/18 09:16 Dose: 5 mg [facility] ([facility]) [facility] Last Admin: 09/06/18 08:38 Dose: 1,334 mg Carvedilol (Coreg) 6.25 mg PO DAILY [facility] Last Admin: 09/06/18 09:16 Dose: 6.25 mg Docusate Sodium (Colace) 100 mg PO BID [facility] Last Admin: 09/06/18 09:16 Dose: 100 mg Epoetin Chato (Procrit) 4,000 unit IV [facility] [place]piride (Amaryl) 4 mg PO DAILY [facility] Last Admin: 09/06/18 09:16 Dose: 4 mg Heparin Sodium (Porcine) (Heparin) 5,000 units SC Q8 [facility] Last Admin: 09/06/18 13:06 Dose: 5,000 units Vancomycin HCl 500 mg/ Sodium (Chloride) 100 mls @ 100 mls/hr IVPB [facility] Protocol Last Admin: 09/04/18 09:23 Dose: 100 mls/hr Insulin Aspart (Novolog) 0 unit SC [facility]; Protocol Last Admin: 09/06/18 13:06 Dose: 2 units Insulin Glargine (Lantus) 40 unit SC HS [facility] Last Admin: 09/05/18 21:51 Dose: 40 u Lamotrigine (Lamictal) 50 mg PO BID [facility] Last Admin: 09/06/18 09:16 Dose: 50 mg Ondansetron HCl (Zofran Inj) 4 mg IVP Q4H PRN PRN Reason: Nausea/Vomiting Last Admin: 08/30/18 07:32 Dose: 4 mg Pantoprazole Sodium (Protonix Ec Tab) 40 mg PO DAILY [facility] Last Admin: 09/06/18 09:16 Dose: 40 mg Tamsulosin HCl (Flomax) 0.4 mg PO DAILY [facility] Last Admin: 09/06/18 09:16 Dose: 0.4 mg Vitamin B Complex/Vit C/Folic Acid (Nephro-Poly) 1 tab PO 0800 [facility] Last Admin: 09/06/18 08:38 Dose: 1 tab - Labs Labs: 09/05/18 08:24 09/05/18 08:24 PT 12.8 SECONDS (9.7-12.2) H 08/31/18 13:25 INR 1.2 08/31/18 13:25 APTT 29 SECONDS (21-34) 08/31/18 13:25 - Constitutional Appears: Non-toxic, Cachectic, Chronically Ill - Head Exam Head Exam: ATRAUMATIC, NORMAL INSPECTION, NORMOCEPHALIC - Eye Exam Eye Exam: EOMI, Normal appearance, PERRL Pupil Exam: NORMAL ACCOMODATION, PERRL - ENT Exam ENT Exam: Mucous Membranes Moist, Normal Exam - Neck Exam Neck Exam: Full ROM, Normal Inspection. absent: Lymphadenopathy - Respiratory Exam Respiratory Exam: Clear to Ausculation Bilateral, NORMAL BREATHING PATTERN - Cardiovascular Exam Cardiovascular Exam: REGULAR RHYTHM, +S1, +S2. absent: Murmur - GI/Abdominal Exam GI & Abdominal Exam: Soft, Normal Bowel Sounds. absent: Tenderness - Rectal Exam Rectal Exam: NORMAL INSPECTION - Extremities Exam Extremities Exam: Full ROM, Normal Capillary Refill, Normal Inspection. absent: Joint Swelling, Pedal Edema - Back Exam Back Exam: NORMAL INSPECTION - Neurological Exam Neurological Exam: Alert, Awake, CN II-XII Intact, Normal Gait, Oriented x3 - Psychiatric Exam Psychiatric exam: Normal Affect, Normal Mood - Skin Skin Exam: Dry, Intact, Normal Color, Warm Assessment and Plan (1) Gangrene of toe of right foot Status: Resolved (2) Infected ulcer of skin Status: Acute (3) Ischemic ulcer of heel with necrosis of muscle Status: Resolved (4) Pneumonia Status: Acute (5) Right middle lobe pneumonia Status: Resolved (6) ESRD on hemodialysis Status: Chronic (7) Uncontrolled diabetes mellitus Status: Chronic (8) MRSA (methicillin resistant staph aureus) culture positive Status: Acute - Assessment and Plan (Free Text) Assessment: CXR clear pneumonia resolved will d/c merrem
[2018-09-06] MEDS: (Lantus) Insulin Glargine, Recombinant SC SCH (22:44)
--- NOTE | 2018-09-06 22:45 | CP.PCM.PN ---
Subjective - Date & Time of Evaluation Date of Evaluation: 09/06/18 Time of Evaluation: 18:45 - Subjective Subjective: Patient has no complaint. Awake, in no respiratory distress. Afebrile. Off IV antibiotics. Objective - Vital Signs/Intake and Output Vital Signs (last 24 hours): Temp Pulse Resp BP Pulse Ox 97.8 F 69 20 110/49 L 94 L 09/06/18 16:00 09/06/18 16:00 09/06/18 16:00 09/06/18 16:00 09/06/18 16:00 - Medications Medications: Current Medications Acetaminophen (Tylenol 325mg Tab) 650 mg PO Q6 PRN PRN Reason: Fever >100.4 F Acetaminophen (Tylenol 325mg Tab) 650 mg PO Q6 PRN PRN Reason: Pain, moderate (4-7) Aspirin (Ecotrin) 81 mg PO DAILY [facility] Last Admin: 09/06/18 09:16 Dose: 81 mg Belladonna/Phenobarbital () 1 tab PO TID [facility] Last Admin: 09/06/18 19:44 Dose: 1 tab Bisacodyl (Dulcolax) 5 mg PO DAILY [facility] Last Admin: 09/06/18 09:16 Dose: 5 mg Calcium Acetate ([facility]) [facility] Last Admin: 09/06/18 19:43 Dose: 1,334 mg Carvedilol (Coreg) 6.25 mg PO DAILY [facility] Last Admin: 09/06/18 09:16 Dose: 6.25 mg Docusate Sodium (Colace) 100 mg PO BID [facility] Last Admin: 09/06/18 19:44 Dose: 100 mg Epoetin Chato (Procrit) 4,[address] [facility] [place] Glimepiride (Amaryl) 4 mg PO DAILY [facility] Last Admin: 09/06/18 09:16 Dose: 4 mg Heparin Sodium (Porcine) (Heparin) 5,000 units SC Q8 [facility] Last Admin: 09/06/18 13:06 Dose: 5,000 units Vancomycin HCl 500 mg/ Sodium (Chloride) 100 mls @ 100 mls/hr IVPB [facility] [place]; Protocol Last Admin: 09/04/18 09:23 Dose: 100 mls/hr Insulin Aspart (Novolog) 0 unit SC [facility]; Protocol Last Admin: 09/06/18 22:18 Dose: Not Given Insulin Glargine (Lantus) 40 unit SC HS [facility] Last Admin: 09/05/18 21:51 Dose: 40 u Lamotrigine (Lamictal) 50 mg PO BID [facility] Last Admin: 09/06/18 19:44 Dose: 50 mg Ondansetron HCl (Zofran Inj) 4 mg IVP Q4H PRN PRN Reason: Nausea/Vomiting Last Admin: 08/30/18 07:32 Dose: 4 mg Pantoprazole Sodium (Protonix Ec Tab) 40 mg PO DAILY [facility] Last Admin: 09/06/18 09:16 Dose: 40 mg Tamsulosin HCl (Flomax) 0.4 mg PO DAILY [facility] Last Admin: 09/06/18 09:16 Dose: 0.4 mg Vitamin B Complex/Vit C/Folic Acid (Nephro-Poly) 1 tab PO 0800 [facility] Last Admin: 09/06/18 08:38 Dose: 1 tab - Labs Labs: 09/05/18 08:24 09/05/18 08:24 PT 12.8 SECONDS (9.7-12.2) H 08/31/18 13:25 INR 1.2 08/31/18 13:25 APTT 29 SECONDS (21-34) 08/31/18 13:25 - Constitutional Appears: No Acute Distress, Chronically Ill - Head Exam Head Exam: NORMOCEPHALIC - Eye Exam Eye Exam: Normal appearance - ENT Exam ENT Exam: Normal Exam - Neck Exam Neck Exam: Normal Inspection - Respiratory Exam Respiratory Exam: Rhonchi - Cardiovascular Exam Cardiovascular Exam: REGULAR RHYTHM - GI/Abdominal Exam GI & Abdominal Exam: Soft, Normal Bowel Sounds - Rectal Exam Rectal Exam: Deferred - Exam Exam: NORMAL INSPECTION - Extremities Exam Extremities Exam: Normal Inspection - Back Exam Back Exam: NORMAL INSPECTION - Neurological Exam Neurological Exam: Alert, Awake - Psychiatric Exam Psychiatric exam: Anxious - Skin Skin Exam: Dry, Intact, Warm Assessment and Plan (1) Ischemic ulcer of heel with necrosis of muscle Status: Resolved (2) Gangrene of toe of right foot Status: Resolved (3) Right middle lobe pneumonia Status: Resolved (4) Uncontrolled diabetes mellitus Status: Chronic (5) ESRD on hemodialysis Status: Chronic (6) Left lower lobe pneumonia Status: Resolved (7) Right sided weakness Status: Ruled-out
[2018-09-07] MEDS: (Novolog) Insulin Aspart, Recombinant 100 u/ml 10 ml vial SC SCH ×3 (08:31→16:12)
[2018-09-07] MEDS: Multivitamin Vitamin B Complex (Nephro-Vite) Tab PO SCH (08:46)
[2018-09-07] MEDS ORDERED: EPOETIN ALFA 4,000 UNIT/ML ML Dialysis IV SCH (09:00)
[2018-09-07] MEDS: Bisacodyl 5mg EC Tab PO SCH (10:07)
[2018-09-07] MEDS: Pantoprazole 40 mg EC Tab PO SCH (10:07)
[2018-09-07] MEDS: Belladonna-Phenobarbital PO SCH ×3 (10:07→17:36)
--- NOTE | 2018-09-07 12:55 | CP.PCM.PN ---
Subjective - Date & Time of Evaluation Date of Evaluation: 09/07/18 Time of Evaluation: 12:54 - Subjective Subjective: Nephrology Consultation Note: Assessment: Stable Rt foot cellulitis and Pneumonia Diabetic chronic Kidney Disease (E11.22) Hypertensive Chronic Kidney Disease (I12.0) End stage renal disease (N18.6) dependence on hemodialysis (Z99.2) (MWF) via AVF Anemia (D64.9), Hyperphosphatemia (E83.39), Secondary Hyperparathyroidism (E21.1), HTN (I12.0) hypotension. AMS Plan: Will plan for HD MWF schedule as ordered. Continue with Nephrovite 1 tab/day. PRBC as needed for anemia. on LESLI with dialysis as last Hb 10.4 Continue with phos binders, last phos level: 6.2 BP control with meds as ordered. d/c losartan as BP on low side Glycemic control, Dialysis consistent diet Further work up/management as per primary team Dose meds/antibiotics (if needed) for ESRD status. Please avoid fleets/phos enema/magnesium based laxatives in ESRD patients. ID Neuro following Thanks for allowing me to participate in care of your patient. Will follow patient with you. Please call if any Qs Dr Edwardo Valenzuela Office: [phone] Chief Complaint;Rt toe infection and cough HPI: Pt is a 78 year old male with PMHx of DM, HTN, Hyperlipidemia, ESRD on dialysis (MWF), CAD s/p CABG, AVR, BPH and Bipolar disorder presents to ED complaining of cough x 2 weeks and redness, swelling of the right big toe and admitted for cellulitis, pneumonia. Renal consult requested for ESRD management. last HD friday. otherwise feels usual health ROS: Cardiovascular: No chest pain. Pulmonary: No shortness of breath . Gastrointestinal: denies abdominal pain No nausea. No vomiting. Genitourinary: No pain while urinating. Denies blood in urine. All other negative except as mentioned in HPI Physical Examination: seen on HD General Appearance: Comfortable, in no acute respiratory distress, co-operative . Vitals reviewed and noted as below Head; Atraumatic, normocephalic ENT: no ulcers no thrush. Tongue is midline. Oropharynx: no rash or ulcers. EYES: Pupils are equal, round and reactive to light accommodation. Eye muscles and extraocular movement intact. Sclera is anicteric. Neck; supple no lymphadenopathy, no thyromegaly or bruit Lungs: Normal respiratory rate/effort. Breath sounds bilateral equal and clear Heart: Normal rate. s1s2 normal. No rub or gallop. Extremities: no edema. No varicose veins. Neurological: Patient is alert, awake and not confused now. oriented. No focal deficit. Strength bilateral appropriate and equal Skin: Warm and dry. Normal turgor. No rash. Palpitation: Normal elasticity for age Abdomen: Abdomen is soft. Bowel sounds +. There is no abdominal tenderness, no guarding/rigidity or organomegaly Psych: normal insight and normal affect/mood MSK: no joint tenderness or swelling. Digits and nails normal, no deformity : kidney or bladder not palpable Access: AVF Labs/imaging reviewed. Past medical history, past surgical history, family history, social history, allergy reviewed and noted as below Family Hx: no hx of CKD. Non contributory Objective - Vital Signs/Intake and Output Vital Signs (last 24 hours): Temp Pulse Resp BP Pulse Ox 97.8 F 105 H 20 102/64 96 09/07/18 07:00 09/07/18 11:00 09/07/18 07:00 09/07/18 11:00 09/07/18 07:00 - Medications Medications: Current Medications Acetaminophen (Tylenol 325mg Tab) 650 mg PO Q6 PRN PRN Reason: Fever >100.4 F Acetaminophen (Tylenol 325mg Tab) 650 mg PO Q6 PRN PRN Reason: Pain, moderate (4-7) Aspirin (Ecotrin) 81 mg PO DAILY [facility] Last Admin: 09/07/18 10:07 Dose: 81 mg Belladonna/Phenobarbital () 1 tab PO TID [facility] Last Admin: 09/07/18 10:07 Dose: 1 tab Bisacodyl (Dulcolax) 5 mg PO DAILY [facility] Last Admin: 09/07/18 10:07 Dose: 5 mg Calcium Acetate (Phoslo) 1,334 mg PO BIDCC [facility] Last Admin: 09/07/18 08:46 Dose: 1,334 mg Carvedilol (Coreg) 6.25 mg PO DAILY [facility] Last Admin: 09/07/18 10:08 Dose: Not Given Docusate Sodium (Colace) 100 mg PO BID [facility] Last Admin: 09/07/18 10:07 Dose: 100 mg Epoetin Chato (Procrit) 4,000 unit IV [facility] [place] Glimepiride (Amaryl) 4 mg PO DAILY [facility] Last Admin: 09/07/18 10:07 Dose: 4 mg Heparin Sodium (Porcine) (Heparin) 5,000 units SC Q8 [facility] Last Admin: 09/07/18 05:28 Dose: 5,000 units Vancomycin HCl 500 mg/ Sodium (Chloride) 100 mls @ 100 mls/hr IVPB [facility] [place]; Protocol Last Admin: 09/04/18 09:23 Dose: 100 mls/hr Insulin Aspart (Novolog) 0 unit SC [facility]; Protocol Last Admin: 09/07/18 12:18 Dose: Not Given Insulin Glargine (Lantus) 40 unit SC HS [facility] Last Admin: 09/06/18 22:44 Dose: 40 u Lamotrigine (Lamictal) 50 mg PO BID [facility] Last Admin: 09/07/18 10:07 Dose: 50 mg Ondansetron HCl (Zofran Inj) 4 mg IVP Q4H PRN PRN Reason: Nausea/Vomiting Last Admin: 08/30/18 07:32 Dose: 4 mg Pantoprazole Sodium (Protonix Ec Tab) 40 mg PO DAILY [facility] Last Admin: 09/07/18 10:07 Dose: 40 mg Tamsulosin HCl (Flomax) 0.4 mg PO DAILY [facility] Last Admin: 09/07/18 10:07 Dose: 0.4 mg Vitamin B Complex/Vit C/Folic Acid (Nephro-Poly) 1 tab PO 0800 [facility] Last Admin: 09/07/18 08:46 Dose: 1 tab - Labs Labs: 09/05/18 08:24 09/05/18 08:24 PT 12.8 SECONDS (9.7-12.2) H 08/31/18 13:25 INR 1.2 08/31/18 13:25 APTT 29 SECONDS (21-34) 08/31/18 13:25
[2018-09-07 16:23] VITALS: BP 133/45; PULSE 67; RESP 16; TEMP 97.4; O2SAT 98
--- NOTE | 2018-09-07 16:44 | PN ---
DATE: 09/07/2018 LOCATION: 571, bed B. SUBJECTIVE: This is a 78-year-old male seen and examined early in rounds without significant clinical changes or reported active bleeding with less complaint of abdominal pain, no chest pain, palpitation, significant shortness of breath. No reported active GI bleeding of IV antibiotics. The patient still has complaint of intermittent period of nausea with dyspepsia with midepigastric midabdominal pain and discomfort on and off. The entire chart is reviewed including the most recent lab results today with blood glucose level 137. Rest of the lab is still pending. PHYSICAL EXAMINATION: GENERAL: A 78-year-old male. VITAL SIGNS: Afebrile with pulse of 72, respiratory rate 20-22, blood pressure of 136/68. HEENT: Showed pale dry oral mucous membrane. Nonicteric sclerae. LUNGS: Few scattered crepitation. Decreased air entry at bases. HEART: Positive S1 and S2. ABDOMEN: Soft. Bowel sounds are present. No mass or organomegaly. No rebound tenderness or guarding. EXTREMITIES: With evidence of right-sided foot gangrenous and changes covered with clean dressing. No cyanosis, edema, clubbing. No reported new neurological deficits, sensory or motor. IMPRESSION: 1. Peptic ulcer disease with recurrent dyspepsia and nausea. 2. Malnutrition with hypoalbuminemia with reported slight dysphagia, improving clinically and slowly. 3. Right-sided pneumonia. 4. Right foot gangrenous changes with ischemic changes as reported. 5. Anemia secondary to above, the possibility of gastrointestinal blood loss was raised. 6. Renal failure, on hemodialysis. 7. Possible fecal impaction by radiology study results. SUGGESTIONS: 1. Continue current management. 2. Repeat CBC. If there is significant drop of hemoglobin and hematocrit, then the patient is to be scheduled for endoscopic evaluation of the GI tract, otherwise close observation to follow. Cindy Corrales MD
--- NOTE | 2018-09-09 08:00 | PCM.HF ---
Heart Failure Core Measure - Heart Failure Ejection Fraction: 40 % or Greater JOSE ELIAS Inhibitor Prescribed: No Contraindication/Reason for not providing: EF>45 Beta-Hao Prescribed: Carvedilol Angiotensin II Receptor Hao Prescribed: No Contraindication/Reason for not providing: EFA.45 AnticoagulationTherapy for Atrial Fibrillation/Atrialflutter: No Contraindication/Reason for not providing: NO HX OF A FIB Aldosterone Antagonist Prescribed: No Contraindication/Reason for not providing: ARF Hydralazine Nitrate Prescribed: No Contraindication/Reason for not providing: EF>45 Implantable Cardioverter Defibrillator Therapy: No Contraindication/Reason for not providing: EF>45 Cardiac Resynchronization Therapy Prescribed: No Contraindication/Reason for not providing: EF>45 - Follow up [facility] Follow Up Date (must be within 7 days from discharge): 09/10/18 Follow Up Time: 08:00
--- NOTE | 2018-09-13 02:02 | CON ---
DATE: 08/30/[address] Corrales to Dr. Neftali Johnson. I was called for GI consultation by the admitting MD. The patient is seen and fully examined on 08/30/2018 at the request of the admitting medical staff. The entire chart is reviewed including but not limited to the most recent lab and radiology study results, current and the previous medication list, current and the previous medical events, allergy to medication list as well as all the available current and previous medical records. A short handwritten consultation sheet left in the chart at the time of my physical examination and GI consultation on 08/30/2018. Case discussed at length with the staff in the floor as well as the admitting MD at the time of my GI consultation. HISTORY OF PRESENT ILLNESS: This is a 78-year-old male who was admitted to the hospital initially through the emergency room with a main complaint of right great toe ulceration associated with discharge followed by recurrent episodes of low grade fever, productive cough, mild shortness of breath with reported recently low hemoglobin and hematocrit as well as intermittent period of subsequent elevation of liver function test with nausea, dyspepsia, and loss of appetite during his hospitalization but denied any hemoptysis or hematemesis, any actual chest pain or palpitation. The patient also reported generalized weakness and malaise with post fall at home keeping in mind that the patient has a known history of chronic renal failure, have been on hemodialysis. PAST MEDICAL HISTORY: Including but not limited to: 1. COPD. 2. Hypertension, congestive heart failure, coronary artery disease status post CABG. 3. Known history of diabetes mellitus, benign prostatic hypertrophy, osteoarthritis. 4. Known history of pneumonia. 5. End-stage renal disease, on hemodialysis. 6. Peptic ulcer disease. LABORATORY DATA: Initial blood workup at the time of the admission showed leukocytosis of 12, hemoglobin 9.6, hematocrit 29 with subsequent drop of hemoglobin and hematocrit with increased BUN and creatinine as well as elevated blood glucose level. Initial chest x-ray showed evidence of rate, especially in the right lower lobe. Due to the subsequent drop of hemoglobin and hematocrit, poor oral intake and reported guaiac positive stool, I will was called for a GI consultation. FAMILY HISTORY: Unknown. SOCIAL HISTORY: Positive for cigarette smoking, but no recent history of alcohol intake. CURRENT MEDICATIONS: Post admission medication list reviewed. ALLERGIES TO MEDICATIONS: UNCLEAR. PHYSICAL EXAMINATION: GENERAL: A 78-year-old male appears to be somewhat mildly cachectic. VITAL SIGNS: Afebrile at the time he was seen by me with pulse of 90, respiratory rate 20 to 22, blood pressure 118/58. HEENT: Showed pale dry oral mucous membrane. Nonicteric sclerae. LUNGS: Few scattered crepitation. Decreased air entry at bases. HEART: Positive S1 and S2. ABDOMEN: Soft with mild generalized tenderness. No mass or organomegaly. No rebound tenderness or guarding. EXTREMITIES: With mild lower extremity edematous changes. No clubbing or cyanosis. NEUROLOGIC: No reported new neurological deficits, sensory or motor. IMPRESSION: 1. Anemia with subsequent drop of hemoglobin and hematocrit, the possibility of upper versus lower gastrointestinal blood loss was raised. 2. Mildly elevated liver function test than before that could be secondary to recent infectious process versus drug induced. 3. Multiple past medical history as mentioned above. 4. Rule out occult gastrointestinal malignancy. SUGGESTIONS: 1. Agree with your plan. 2. Proton pump inhibitors. Cancer markers. Repeat stool for occult blood. Peripheral hyperalimentation in association with the Nephrology safety and health consultant. 3. The patient may need endoscopic evaluation of the upper and lower endoscopy if persistent and subsequent drop of hemoglobin and hematocrit. 4. Hepatitis profile. 5. Abdominal ultrasound with biliary tree and pancreas. 6. Further recommendation to follow. Thank you for letting me participate in your patient's case management. We will follow up closely with you. Cindy Corrales MD
--- NOTE | 2018-09-13 23:19 | CP.PCM.DIS ---
Provider - Provider Date of Admission: 08/04/18 15:00 Attending physician: Neftali Johnson MD Primary care physician: Neftali Johnson M.D. Consults: 08/04/18 14:59 Nephrology Consult Stat Comment: Consulting Provider: Elpidio Lawton Consulting Physician: Elpidio Lawton Reason for Consult: dialysis tomorrow 08/04/18 18:57 Nursing Referral for Palliative Care Routine Comment: Physician Instructions: Reason For Exam: Patient with multiple medical problems 08/05/18 09:00 Nursing Referral for Wound Care Routine Comment: Physician Instructions: Reason For Exam: wound on r great toe and both heels 08/05/18 16:25 Physician Consult Routine Comment: Consulting Provider: Rodriguez Jenkins Consulting Physician: Rodriguez Jenkins Reason for Consult: R foot cellulitis 08/05/18 19:09 Infectious Disease Consult Routine Comment: Consulting Provider: Ramu Wiley Consulting Physician: Ramu Wiley Reason for Consult: Pneumonia, cellulitis of the great toe and heel 08/30/18 07:57 Gastroenterology Consult Routine Comment: Consulting Provider: Cindy Addison Consulting Physician: Cindy Addison Reason for Consult: vomiting 08/31/18 17:19 Physician Consult Routine Comment: Consulting Provider: Nathanael Barraza Consulting Physician: Nathanael Barraza Reason for Consult: New right sided weakness, ESRD on HD. Time Spent in preparation of Discharge (in minutes): 60 Diagnosis - Discharge Diagnosis (1) Ischemic ulcer of heel with necrosis of muscle Status: Resolved (2) Gangrene of toe of right foot Status: Resolved (3) Right middle lobe pneumonia Status: Resolved (4) Uncontrolled diabetes mellitus Status: Chronic (5) ESRD on hemodialysis Status: Chronic (6) Left lower lobe pneumonia Status: Resolved (7) Right sided weakness Status: Ruled-out Hospital Course - Lab Results Lab Results: Micro Results 08/30/18 12:50 Blood Blood Culture - Final NO GROWTH AFTER 5 DAYS 08/30/18 12:50 Blood Gram Stain - Final TEST NOT PERFORMED 08/30/18 14:07 Blood Blood Culture - Final NO GROWTH AFTER 5 DAYS 08/30/18 14:07 Blood Gram Stain - Final TEST NOT PERFORMED 08/29/18 21:00 Blood-Venous Blood Culture - Final NO GROWTH AFTER 5 DAYS 08/29/18 21:00 Blood-Venous Gram Stain - Final TEST NOT PERFORMED 08/29/18 21:10 Blood-Venous Blood Culture - Final NO GROWTH AFTER 5 DAYS 08/29/18 21:10 Blood-Venous Gram Stain - Final TEST NOT PERFORMED 08/30/18 22:48 Stool Stool Culture - Final NO SALMONELLA, SHIGELLA OR CAMPYLOBACTER ISOLATED. 08/30/18 14:50 Urine,Catheterized Urine Culture - Final No Growth (<1,000 CFU/ML) 08/04/18 13:22 Blood Blood Culture - Final NO GROWTH AFTER 5 DAYS 08/04/18 13:22 Blood Gram Stain - Final TEST NOT PERFORMED 08/04/18 13:22 Blood Blood Culture - Final NO GROWTH AFTER 5 DAYS 08/04/18 13:22 Blood Gram Stain - Final TEST NOT PERFORMED 08/07/18 02:46 Foot - Left Gram Stain - Final 08/07/18 02:46 Foot - Left Wound Culture - Final Methicillin Resistant S Aureus Corynebacterium Species Most Recent Lab Values WBC 6.5 K/uL (4.8-10.8) 09/05/18 08:24 RBC 3.49 Mil/uL (4.40-5.90) L 09/05/18 08:24 Hgb 10.3 g/dL (12.0-18.0) L 09/05/18 08:24 Hct 31.1 % (35.0-51.0) L 09/05/18 08:24 MCV 89.3 fL (80.0-94.0) 09/05/18 08:24 MCH 29.6 pg (27.0-31.0) 09/05/18 08:24 MCHC 33.2 g/dL (33.0-37.0) 09/05/18 08:24 RDW 16.5 % (11.5-14.5) H 09/05/18 08:24 Plt Count 112 K/uL (130-400) L 09/05/18 08:24 MPV 10.1 fL (7.2-11.7) 09/05/18 08:24 Neut % (Auto) 62.4 % (50.0-75.0) 09/05/18 08:24 Lymph % (Auto) 24.5 % (20.0-40.0) 09/05/18 08:24 [place] % (Auto) 8.8 % (0.0-10.0) 09/05/18 08:24 Eos % (Auto) 3.8 % (0.0-4.0) 09/05/18 08:24 Baso % (Auto) 0.5 % (0.0-2.0) 09/05/18 08:24 Neut # (Auto) 4.0 K/uL (1.8-7.0) 09/05/18 08:24 Lymph # (Auto) 1.6 K/uL (1.0-4.3) 09/05/18 08:24 [place] # (Auto) 0.6 K/uL (0.0-0.8) 09/05/18 08:24 Eos # (Auto) 0.2 K/uL (0.0-0.7) 09/05/18 08:24 Baso # (Auto) 0.0 K/uL (0.0-0.2) 09/05/18 08:24 Neutrophils % (Manual) 84 % (50-75) H 08/30/18 14:07 Band Neutrophils % 6 % (0-2) H 08/30/18 14:07 Lymphocytes % (Manual) 3 % (20-40) L 08/30/18 14:07 Monocytes % (Manual) 7 % (0-10) 08/30/18 14:07 Eosinophils % (Manual) 1 % (0-4) 08/04/18 11:56 Differential Comment 08/29/18 21:11 Platelet Estimate Slightly decreased (NORMAL) L 08/30/18 14:07 Polychromasia Slight 08/04/18 11:56 Hypochromasia (manual) Slight 08/04/18 11:56 Anisocytosis (manual) Slight 08/30/18 14:07 ESR 83 mm/hr (0-15) H 08/20/18 06:35 PT 12.8 SECONDS (9.7-12.2) H 08/31/18 13:25 INR 1.2 08/31/18 13:25 APTT 29 SECONDS (21-34) 08/31/18 13:25 Puncture Site Lr 08/30/18 10:11 pCO2 18 mm/Hg (35-45) L* 08/30/18 10:11 pO2 74 mm/Hg (80-100) L 08/30/18 10:11 HCO3 23.0 mmol/L (21-28) 08/30/18 10:11 ABG pH 7.58 (7.35-7.45) H 08/30/18 10:11 ABG Total CO2 17.5 mmol/L (22-28) L 08/30/18 10:11 ABG O2 Saturation 98.0 % (95-98) 08/30/18 10:11 ABG Base Excess -2.4 mmol/L (-2.0-3.0) L 08/30/18 10:11 Trevor Test Pos 08/30/18 10:11 ABG Potassium 6.2 mmol/L (3.6-5.2) H* 08/30/18 10:11 VBG pH 7.46 (7.32-7.43) H 08/04/18 12:00 VBG pCO2 42 mmHg (40-60) 08/04/18 12:00 VBG HCO3 27.7 mmol/L 08/04/18 12:00 VBG Total CO2 31.2 mmol/L (22-28) H 08/04/18 12:00 VBG O2 Sat (Calc) 48.6 % (40-65) 08/04/18 12:00 VBG Base Excess 5.4 mmol/L (0.0-2.0) H 08/04/18 12:00 VBG Potassium 3.5 mmol/L (3.6-5.2) L 08/04/18 12:00 A-a O2 Difference 132.0 mm/Hg 08/30/18 10:11 Respiratory Index 1.8 08/30/18 10:11 Sodium 131.0 mmol/l (132-148) L 08/30/18 10:11 Chloride 94.0 mmol/L (98-107) L 08/30/18 10:11 Glucose 424 mg/dl (75-110) H* D 08/30/18 10:11 Lactate 2.4 mmol/L (0.7-2.1) H 08/30/18 10:11 Liter Flow 3.0 08/30/18 10:11 FiO2 32.0 % 08/30/18 10:11 Crit Value Called To melly Handy 08/30/18 10:11 Crit Value Called By Heather riggins 08/30/18 10:11 Crit Value Read Back Y 08/30/18 10:11 Blood Gas Notified Time 1017 08/30/18 10:11 Sodium 134 mmol/L (132-148) 09/05/18 08:24 Potassium 5.0 mmol/L (3.6-5.2) 09/05/18 08:24 Chloride 100 mmol/L (98-107) 09/05/18 08:24 Carbon Dioxide 25 mmol/L (22-30) 09/05/18 08:24 Anion Gap 15 (10-20) 09/05/18 08:24 BUN 43 mg/dL (9-20) H 09/05/18 08:24 Creatinine 7.4 mg/dL (0.8-1.5) H* D 09/05/18 08:24 Est GFR ( Amer) 9 09/05/18 08:24 Est GFR (Non-Af Amer) 7 09/05/18 08:24 POC Glucose (mg/dL) 131 mg/dL (65-110) H 09/07/18 15:59 Random Glucose 232 mg/dL (75-110) H D 09/05/18 08:24 Lactic Acid 1.6 mmol/L (0.7-2.1) 08/31/18 11:36 Calcium 8.6 mg/dl (8.6-10.4) 09/05/18 08:24 Phosphorus 6.6 mg/dL (2.5-4.5) H 08/31/18 11:36 Magnesium 2.2 mg/dL (1.6-2.3) 08/31/18 11:36 Total Bilirubin 0.4 mg/dL (0.2-1.3) 09/05/18 08:24 AST 62 U/L (17-59) H D 09/05/18 08:24 ALT 31 U/L (21-72) 09/05/18 08:24 Alkaline Phosphatase 90 U/L (38-126) 09/05/18 08:24 Troponin I < 0.0120 ng/mL (0.00-0.120) 08/04/18 11:56 C-Reactive Protein 218.90 mg/L (0.0-9.9) H 08/05/18 07:00 NT-Pro-B Natriuret Pep 25493 pg/mL (0-900) H 08/04/18 11:56 Total Protein 6.4 g/dL (6.3-8.3) 09/05/18 08:24 Albumin 3.3 g/dL (3.5-5.0) L 09/05/18 08:24 Globulin 3.1 gm/dL (2.2-3.9) 09/05/18 08:24 Albumin/Globulin Ratio 1.0 (1.0-2.1) 09/05/18 08:24 Carcinoembryonic Ag 4.0 ng/mL (0-3.0) H 08/31/18 13:25 CA 19-9 Antigen 5.6 U/mL (0-37) 08/31/18 13:25 Vitamin B12 960 pg/mL (239-931) H 09/01/18 08:28 Folate > 20.0 ng/mL 09/01/18 08:28 Procalcitonin 2.07 NG/ML (0.19-0.49) H 08/06/18 17:29 Free T4 1.61 ng/dL (0.78-2.19) 08/30/18 14:07 TSH 3rd Generation 0.89 mIU/L (0.46-4.68) 08/30/18 14:07 Arterial Blood Potassium 6.2 mmol/L (3.6-5.2) H* 08/30/18 10:11 Venous Blood Potassium 3.5 mmol/L (3.6-5.2) L 08/04/18 12:00 Urine Color Kristina (YELLOW) 08/30/18 14:50 Urine Clarity Hazy (Clear) 08/30/18 14:50 Urine pH 6.0 (5.0-8.0) 08/30/18 14:50 Ur Specific [place] 1.014 (1.003-1.030) 08/30/18 14:50 Urine Protein 3+ mg/dL (NEGATIVE) H 08/30/18 14:50 Urine Glucose (UA) 1+ mg/dL (Normal) H 08/30/18 14:50 Urine Ketones Trace mg/dL (NEGATIVE) 08/30/18 14:50 Urine Blood 1+ (NEGATIVE) H 08/30/18 14:50 Urine Nitrate Negative (NEGATIVE) 08/30/18 14:50 Urine Bilirubin Negative (NEGATIVE) 08/30/18 14:50 Urine Urobilinogen Normal mg/dL (0.2-1.0) 08/30/18 14:50 Ur Leukocyte Esterase Neg Aniceto/uL (Negative) 08/30/18 14:50 Urine WBC (Auto) 2 /hpf (0-5) 08/30/18 14:50 Urine RBC (Auto) 1 /hpf (0-3) 08/30/18 14:50 Amorphous Sediment Moderate /ul (<OCC) H 08/30/18 14:50 Urine Bacteria Rare (<OCC) 08/30/18 14:50 Hyaline Casts 0-2 /lpf (0-2) 08/30/18 14:50 Stool Leukocytes, Qual Negative (NEGATIVE) 08/30/18 22:48 Vancomycin Trough 11.0 ug/mL (5.0-10.0) H 08/26/18 13:51 Lamotrigine 0.9 mcg/mL (4.0-18.0) L 08/30/18 14:07 RPR Nonreactive (NONREACTIVE) 09/01/18 08:28 C. difficile Ag & Toxin Negative (NEGATIVE) 08/30/18 22:48 Hepatitis A IgM Ab Negative (NEGATIVE) 08/28/18 07:39 Hep Bs Antigen Negative (NEGATIVE) 08/28/18 07:39 Hep B Core IgM Ab Negative (NEGATIVE) 08/28/18 07:39 Hepatitis C Antibody Negative (NEGATIVE) 08/28/18 07:39 Influenza Typ A,B (EIA) Negative for flu a/b (NEGATIVE) 08/30/18 14:21 - Hospital Course Hospital Course: 78 years old male was brought to the ED at [facility] because of a productive cough, fever, poor appetite and increasing weakness for the past 2-3 weeks. He is also complaining of draining ulcers of the right great toe and right heel for several weeks. A CXR revealed patchy infiltrates of the right lower lobe. Blood glucose was more than 400 mg%. WBC: 12,000 Hgb: 9.6 BUN: 43 Creatinine: 7.8. Patient was hospitalized for a RLL pneumonia, an uncontrolled IDDM, ulcers of the right great toe and right heels. After wound cultures and blood cultures, the patient was started on IV Vancomycin and Zosyn. The patient is known to have a hypertension, an IDDM, an ESRD on HD, a COPD, a CAD ( s/p CABG and AVR with tissue valve in 2013 at [facility] in [place], [place]), a bipolar disorde, a dibetic neuropathy, a s/p CVA, a BPH, a seizures disorders. Patient was evaluated Dr Lawton ( Nephrology), Dr Rodriguez Jenkins ( Podiatry) and Dr Wiley ( ID). Right foot XRay did not show any osteomyelitis. Arterial duplex scan of the lower extremities did not reveal any significant arterial insufficiency. On 08/07/2018 right foot wound culture revealed MRSA. Patient was treated with Vancomycin IV, and Bactroban ointment, and was placed on contact isolation. Repeated XCR on 08/11/2018 revealed marked improvement of the RLL infiltrates. Right great toe and right ulcers were healed with local wound care and IV antibiotics. No surgical intervention was done. On 08/30/2018, rapid response was called, because the patient was found to be hypotensive, fever, lethargic, with vomiting. A CT scan of the abdomen and pelvis revealed fecal impaction and a LLL infiltrate. The patient given IVF, kept in NPO because of fear of aspiration, and given a fleet enema. Dr Wiley restarted the patient on Vancomycin and Maxipime. Next day, the patient developed a right sided weakness. Neurological consultation was called with Dr Barraza. An MRI of the brain revealed an old lacunar infarct. A duplex scan of the carotid arteries did not reveal any significant stenosis. The right sided weakness resolved spontaneously and his mental status came back to baseline. His appetite improved. It was assumed that the patient had a seizure and the transient right sided weakness was a post-ictal manifestation. The patient was restarted on Lamictal PO and Lantus s/c. On 09/04/2018 CXR was cleared of infiltrate. IV antibiotics were discontinued on 09/06/2018. Patient was discharged to a subacute rehabilitation Center on 09/09/2018 in a stable condition. - Date & Time of H&P Date of H&P: 08/04/18 Discharge Exam - Head Exam Head Exam: NORMOCEPHALIC - Eye Exam Eye Exam: Normal appearance - ENT Exam ENT Exam: Normal Exam - Neck Exam Neck exam: Normal Inspection - Respiratory Exam Respiratory Exam: Clear to PA & Lateral, NORMAL BREATHING PATTERN, UNREMARKABLE - Cardiovascular Exam Cardiovascular Exam: REGULAR RHYTHM - GI/Abdominal Exam GI & Abdominal Exam: Normal Bowel Sounds, Soft - Rectal Exam Rectal Exam: Deferred - Exam Exam: NORMAL INSPECTION - Extremities Exam Extremities exam: normal inspection - Back Exam Back exam: NORMAL INSPECTION - Neurological Exam Neurological exam: Alert, Oriented x3 - Psychiatric Exam Psychiatric exam: Anxious - Skin Skin Exam: Normal Color, Warm Discharge Plan - Follow Up Plan Condition: STABLE Disposition: REHAB FACILITY/REHAB UNIT Instructions: Cellulitis and Erysipelas (Skin Infections), Heart Failure, Adult (DC), Pneumonia, Adult (DC), Gangrene (DC), Dialysis and Diet Additional Instructions: Please continue HD as scheduled - Please continue medications as per med. rec. Referrals: Elpidio Lawton MD [Staff Provider] - Ramu Wiley MD [Staff Provider] - Neftali Johnson MD [Staff Provider] - Clinical Quality Measures - CQM - Heart Failure Will be discharged to: Home Follow Up Date (must be within 7 days from discharge): 09/16/18 Follow Up Time: 14:00 - Date & Time of Discharge Summary Date of Discharge Summary: 09/13/18 Time of Discharge Summary: 23:22
== END 2018-09-07 18:06 | DRG 299 ==
LOC: C.ER 11:03 → C.9E 15:00 → C.3T 15:42 → C.5S 08-21 14:26
PROVIDERS: ADMIT Internal Medicine Cardiovascular Disease; ATTEND Internal Medicine Cardiovascular Disease
PROC: 5A1D70Z Performance of Urinary Filtration, Intermittent, Less than 6 Hours Per Day (ICD-10-PCS; principal; 2018-08-05)
PROC: 5A1D70Z Performance of Urinary Filtration, Intermittent, Less than 6 Hours Per Day (ICD-10-PCS; 2018-08-07)
PROC: 5A1D70Z Performance of Urinary Filtration, Intermittent, Less than 6 Hours Per Day (ICD-10-PCS; 2018-08-10)
PROC: 5A1D70Z Performance of Urinary Filtration, Intermittent, Less than 6 Hours Per Day (ICD-10-PCS; 2018-08-12)
PROC: 5A1D70Z Performance of Urinary Filtration, Intermittent, Less than 6 Hours Per Day (ICD-10-PCS; 2018-08-14)
PROC: 5A1D70Z Performance of Urinary Filtration, Intermittent, Less than 6 Hours Per Day (ICD-10-PCS; 2018-08-17)
PROC: 5A1D70Z Performance of Urinary Filtration, Intermittent, Less than 6 Hours Per Day (ICD-10-PCS; 2018-08-19)
PROC: 5A1D70Z Performance of Urinary Filtration, Intermittent, Less than 6 Hours Per Day (ICD-10-PCS; 2018-08-21)
PROC: 5A1D70Z Performance of Urinary Filtration, Intermittent, Less than 6 Hours Per Day (ICD-10-PCS; 2018-08-24)
PROC: 5A1D70Z Performance of Urinary Filtration, Intermittent, Less than 6 Hours Per Day (ICD-10-PCS; 2018-08-26)
PROC: 5A1D70Z Performance of Urinary Filtration, Intermittent, Less than 6 Hours Per Day (ICD-10-PCS; 2018-08-28)
PROC: 5A1D70Z Performance of Urinary Filtration, Intermittent, Less than 6 Hours Per Day (ICD-10-PCS; 2018-08-31)
PROC: 5A1D70Z Performance of Urinary Filtration, Intermittent, Less than 6 Hours Per Day (ICD-10-PCS; 2018-09-02)
PROC: 5A1D70Z Performance of Urinary Filtration, Intermittent, Less than 6 Hours Per Day (ICD-10-PCS; 2018-09-04)
PROC: 5A1D70Z Performance of Urinary Filtration, Intermittent, Less than 6 Hours Per Day (ICD-10-PCS; 2018-09-07)
DX: E11.52 Type 2 diabetes mellitus with diabetic peripheral angiopathy with gangrene (principal); N18.6 End stage renal disease; J18.1 Lobar pneumonia, unspecified organism; L97.419 Non-pressure chronic ulcer of right heel and midfoot with unspecified severity; L03.115 Cellulitis of right lower limb; N25.81 Secondary hyperparathyroidism of renal origin; E46 Unspecified protein-calorie malnutrition; G40.209 Localization-related (focal) (partial) symptomatic epilepsy and epileptic syndromes with complex partial seizures, not intractable, without status epilepticus; G95.9 Disease of spinal cord, unspecified; I13.2 Hypertensive heart and chronic kidney disease with heart failure and with stage 5 chronic kidney disease, or end stage renal disease; J44.0 Chronic obstructive pulmonary disease with (acute) lower respiratory infection; K21.9 Gastro-esophageal reflux disease without esophagitis; K27.9 Peptic ulcer, site unspecified, unspecified as acute or chronic, without hemorrhage or perforation; K56.41 Fecal impaction; L97.519 Non-pressure chronic ulcer of other part of right foot with unspecified severity; N40.0 Benign prostatic hyperplasia without lower urinary tract symptoms; R13.10 Dysphagia, unspecified; Z74.01 Bed confinement status; Z79.4 Long term (current) use of insulin; Z95.1 Presence of aortocoronary bypass graft; Z95.2 Presence of prosthetic heart valve; Z99.2 Dependence on renal dialysis; Z87.891 Personal history of nicotine dependence; I25.10 Atherosclerotic heart disease of native coronary artery without angina pectoris; E11.22 Type 2 diabetes mellitus with diabetic chronic kidney disease; E11.621 Type 2 diabetes mellitus with foot ulcer; E11.40 Type 2 diabetes mellitus with diabetic neuropathy, unspecified; D69.6 Thrombocytopenia, unspecified; E78.5 Hyperlipidemia, unspecified; E11.65 Type 2 diabetes mellitus with hyperglycemia; F03.90 Unspecified dementia, unspecified severity, without behavioral disturbance, psychotic disturbance, mood disturbance, and anxiety; I50.9 Heart failure, unspecified; D64.9 Anemia, unspecified; L03.031 Cellulitis of right toe; B95.62 Methicillin resistant Staphylococcus aureus infection as the cause of diseases classified elsewhere